=== PATIENT | female | born 1930 | race Caucasian/White ===

== ENCOUNTER 2017-09-06 18:43 | Inpatient (IN) | payer OTHER ==
[2017-09-06 19:35] LABS: BASO % 0.1 % (0-2.0); EOS % 0.2 % (0-4.5); HEMATOCRIT 39.4 % (32.4-45.2); HEMOGLOBIN 13.7 GM/dL (10.7-15.3); LYMPH % 4.5 % (8-40); MCH 30.4 pg (25.7-33.7); MCHC 34.8 g/dl (32.0-36.0); MEAN CELL VOLUME 87.3 fl (80-96); MEAN PLT VOLUME 7.7 fl (7.5-11.1); MONO % 5.9 % (3.8-10.2); NEUT % 89.3 % (42.8-82.8); PLATELET COUNT 331 K/MM3 (134-434); RBC 4.51 M/mm3 (3.60-5.2); RDW 17.6 % (11.6-15.6)
[2017-09-06 20:19] LABS: ALBUMIN 2.8 g/dl (3.4-5.0); ANION GAP 8 (8-16); BILIRUBIN,TOTAL 1.1 mg/dL (0.2-1.0); BLOOD UREA NITROGEN 69 mg/dL (7-18); CHLORIDE 104 mmol/L (98-107); CO2 22 mmol/L (21-32); CREATININE 1.6 mg/dL (0.55-1.02); GLUCOSE,RANDOM 154 mg/dL (74-106); POTASSIUM 3.5 mmol/L (3.5-5.1); SGOT/AST 16 U/L (15-37); SGPT/ALT 18 U/L (12-78); SODIUM 134 mmol/L (136-145); TOT PROT 7.1 g/dl (6.4-8.2)
[2017-09-06 20:20] LABS: ALK PHOS 122 U/L (45-117)
[2017-09-06 20:21] LABS: LIPASE 87 U/L (73-393)
--- NOTE | 2017-09-06 21:23 | PDOC ---
History of Present Illness - General Chief Complaint: Seizure Stated Complaint: SEIZURE - History of Present Illness Initial Comments: 09/06/17 21:16 "The patient is an 86 year old female, with a significant past medical history of atrial fibrillation and epilepsy (not currently on medication), who presents to the emergency department with coughing/vomiting and diarrhea for the past 4 days. Family states that she has been dry heaving every time she tries to eat as well as between meals. They describe greenish sputum coming up when she dry heaves. Pt denies abdominal pain. She endorses mild abdominal distention, though the family states her abdomen looks similar to usual. The patient denies any fever, chills, shortness of breath, chest pain. Allergies: None reported. Past Surgical History: Partial bowel resection (2001). Social History: Non-smoker. Denies alcohol or drug use. PCP: Dr. Groves " Past History - Past Medical History Allergies/Adverse Reactions: Allergies Allergy/AdvReac Type Severity Reaction Status Date / Time No Known Allergies Allergy Verified 09/06/17 19:09 Home Medications: Ambulatory Orders Aspirin 81 mg PO DAILY 09/06/17 Diltiazem Cd [Cardizem Cd -] 180 mg PO DAILY 09/06/17 Furosemide [Lasix -] 40 mg PO HS 09/06/17 Furosemide [Lasix -] 80 mg PO AM 09/06/17 Lisinopril [Zestril] 40 mg PO DAILY 09/06/17 Metoprolol Succinate [Toprol Xl -] 100 mg PO BID 09/06/17 Potassium Chloride [K-Dur -] 20 meq PO DAILY 09/06/17 Pravastatin Sodium [Pravachol] 40 mg PO DAILY 09/06/17 Spironolactone [Aldactone] 25 mg PO DAILY 09/06/17 Apixaban [Eliquis] 5 mg PO BID 09/07/17 Cardiac Disorders: Yes (a fib) COPD: No HTN: Yes Other medical history: epilepsy (no clonic/tonic seizure since @ 2006) - Suicide/Smoking/Psychosocial Hx Smoking History: Unknown if ever smoked Review of Systems - Review of Systems Comments:: 09/06/17 21:24 "GENERAL/CONSTITUTIONAL: +Weakness. No fever or chills. HEAD, EYES, EARS, NOSE AND THROAT: No change in vision. No ear pain or discharge. No sore throat. CARDIOVASCULAR: No chest pain or shortness of breath. RESPIRATORY: +Cough. No wheezing or hemoptysis. GASTROINTESTINAL: +Vomiting, diarrhea. No nausea or constipation. GENITOURINARY: No dysuria, frequency, or change in urination. MUSCULOSKELETAL: No joint or muscle swelling or pain. No neck or back pain. SKIN: No rash. NEUROLOGIC: No headache, vertigo, loss of consciousness, or change in strength/ sensation. ENDOCRINE: No increased thirst. No abnormal weight change. HEMATOLOGIC/LYMPHATIC: No anemia, easy bleeding, or history of blood clots. ALLERGIC/IMMUNOLOGIC: No hives or skin allergy. " *Physical Exam - Vital Signs Last Vital Signs Temp Pulse Resp BP Pulse Ox 98.6 F 88 18 110/72 97 09/06/17 19:04 09/06/17 19:04 09/06/17 19:04 09/06/17 19:04 09/06/17 19:04 - Physical Exam Comments: 09/06/17 21:24 "GENERAL: Awake, alert, and fully oriented, in no acute distress. HEAD: No signs of trauma. EYES: PERRLA, EOMI, sclera anicteric, conjunctiva clear. ENT: Auricles normal inspection, hearing grossly normal, nares patent, oropharynx clear without exudates. Moist mucosa. NECK: Nontender, no stepoffs. Normal ROM, supple, no lymphadenopathy, JVD, or masses. LUNGS: Breath sounds equal, clear to auscultation bilaterally. No wheezes, and no crackles. HEART: Regular rate and rhythm, normal S1 and S2, no murmurs, rubs or gallops. ABDOMEN: + Distended, tympanitic. Soft, nontender, normoactive bowel sounds. No guarding, no rebound. No masses. EXTREMITIES: Normal range of motion, no edema. No clubbing or cyanosis. No cords , erythema, or tenderness. NEUROLOGICAL: Cranial nerves II through XII intact. 5/5 strength and sensation in all extremities. Normal speech, normal gait, normal cerebellar function. SKIN: Warm, dry, normal turgor, no rashes or lesions noted. " ED Treatment Course - LABORATORY CBC & Chemistry Diagram: 09/07/17 07:05 09/07/17 15:20 - ADDITIONAL ORDERS Additional order review: Laboratory Results 09/06/17 09/06/17 19:41 19:20 Sodium 134 L Potassium 3.5 Chloride 104 Carbon Dioxide 22 Anion Gap 8 BUN 69 H Creatinine 1.6 H Creat Clearance w eGFR 30.63 Random Glucose 154 H Calcium 9.0 Magnesium 2.0 Total Bilirubin 1.1 H AST 16 ALT 18 Alkaline Phosphatase 122 H Creatine Kinase 23 L Troponin I < 0.02 Total Protein 7.1 Albumin 2.8 L Lipase 87 09/06/17 19:20 RBC 4.51 MCV 87.3 MCHC 34.8 RDW 17.6 H MPV 7.7 Neutrophils % 89.3 H Lymphocytes % 4.5 L Monocytes % 5.9 Eosinophils % 0.2 Basophils % 0.1 - RADIOLOGY Radiology Studies Ordered: Category Date Time Status ABDOMEN [id number] [RAD] Stat Radiology 09/06/17 20:21 Taken CHEST X-RAY PORTABLE* [RAD] Stat Radiology 09/06/17 20:21 Taken Medical Decision Making - Medical Decision Making 09/06/17 21:24 86 F with N+V+D, found to have abdominal distention and tympany on exam. Concerning for SBO given prior h/o partial bowel resection. - Labs - CXR, Abd XR - CTAP if indicated 09/07/17 01:47 CT with SBO + diverticulitis. Will tx diverticulitis with levaquin + flagyl. Pt made NPO. NG tube deferred for now as pt not vomiting in ED. Call placed to Dr. Pérez for surgical consult. Pt to be admitted to hospitalist. *DC/Admit/Observation/Transfer Diagnosis at time of Disposition: SBO (small bowel obstruction), Diverticulitis - Discharge Dispostion Admit: Yes - Referrals - Patient Instructions - Post Discharge Activity - Attestations Physician Attestion: 09/07/17 01:54 I, Dr. Bahman Simms MD, attest that this document has been prepared under my direction and personally reviewed by me in its entirety. I further attest, that it accurately reflects all work, treatment, procedures and medical decision -making performed by me.
[2017-09-06] MEDS ORDERED: ONDANSETRON 4 MG/2 ML VIAL IVPUSH ONE (21:40)
[2017-09-06] MEDS ORDERED: ONDANSETRON 4 MG/2 ML VIAL ONE (21:40)
[2017-09-07] MEDS ORDERED: FAMOTIDINE 20 MG/50 ML IVPB 20 MG/50 ML MG IVPB ONE (00:20)
[2017-09-07] MEDS ORDERED: FAMOTIDINE IV 20 MG/12 ML VIAL IVPUSH ONE (00:24)
[2017-09-07] MEDS ORDERED: SODIUM CHLORIDE 1,000 ML IV STA (00:47)
--- NOTE | 2017-09-07 01:59 | PN ---
Teaching Attending Note Name of Resident: Mari Baker ATTENDING PHYSICIAN STATEMENT I saw and evaluated the patient. I reviewed the resident's note and discussed the case with the resident. I agree with the resident's findings and plan as documented. SUBJECTIVE: 86 yo f with pmhx of a-fib and epilepsy who pw. abdominal pain, coughing, vomiting and diarrhea. States she is nausous. Notes she dry heaves and brings up green sputum. No chest pain, or pressure. No fevers or chills. No current nausea, vomiting, or diarrhea. Deferred NGT at this time, due to pt. stating she feels better and does not want it placed at this time. OBJECTIVE: Physical: VS: Vital Signs Period Temp Pulse Resp BP Sys/Kendall Pulse Ox Last 24 Hr 98.6 F 88 18 110/72 97 GEN:NAD, Resting in bed, AA0X3 HEENT:NCAT, PERRL, Throat without erythema or exudates CARD: RRR S1, s2 RESP: CTAB ABD: BSx4, NTD, non-distended EXT: - C/C/E CBCD WBC 10.0 K/mm3 (4.0-10.0) 09/06/17 19:20 RBC 4.51 M/mm3 (3.60-5.2) 09/06/17 19:20 Hgb 13.7 GM/dL (10.7-15.3) 09/06/17 19:20 Hct 39.4 % (32.4-45.2) 09/06/17 19:20 MCV 87.3 fl (80-96) 09/06/17 19:20 MCHC 34.8 g/dl (32.0-36.0) 09/06/17 19:20 RDW 17.6 % (11.6-15.6) H 09/06/17 19:20 Plt Count 331 K/MM3 (134-434) 09/06/17 19:20 MPV 7.7 fl (7.5-11.1) 09/06/17 19:20 CMP Sodium 134 mmol/L (136-145) L 09/06/17 19:20 Potassium 3.5 mmol/L (3.5-5.1) 09/06/17 19:20 Chloride 104 mmol/L (98-107) 09/06/17 19:20 Carbon Dioxide 22 mmol/L (21-32) 09/06/17 19:20 Anion Gap 8 (8-16) 09/06/17 19:20 BUN 69 mg/dL (7-18) H 09/06/17 19:20 Creatinine 1.6 mg/dL (0.55-1.02) H 09/06/17 19:20 Creat Clearance w eGFR 30.63 (>60) 09/06/17 19:20 Random Glucose 154 mg/dL (74-106) H 09/06/17 19:20 Calcium 9.0 mg/dL (8.5-10.1) 09/06/17 19:20 Total Bilirubin 1.1 mg/dL (0.2-1.0) H 09/06/17 19:20 AST 16 U/L (15-37) 09/06/17 19:20 ALT 18 U/L (12-78) 09/06/17 19:20 Alkaline Phosphatase 122 U/L (45-117) H 09/06/17 19:20 Total Protein 7.1 g/dl (6.4-8.2) 09/06/17 19:20 Albumin 2.8 g/dl (3.4-5.0) L 09/06/17 19:20 CARDIAC ENZYMES Creatine Kinase 23 IU/L (26-192) L 09/06/17 19:41 Troponin I < 0.02 ng/ml (0.00-0.05) 09/06/17 19:41 Home Medications Medication Instructions Recorded Aspirin 81 mg PO DAILY 09/06/17 Diltiazem Cd [Cardizem Cd -] 180 mg PO DAILY 09/06/17 Furosemide [Lasix -] 40 mg PO HS 09/06/17 Furosemide [Lasix -] 80 mg PO AM 09/06/17 Lisinopril [Zestril] 40 mg PO DAILY 09/06/17 Metoprolol Succinate [Toprol Xl -] 100 mg PO BID 09/06/17 Potassium Chloride [K-Dur -] 20 meq PO DAILY 09/06/17 Pravastatin Sodium [Pravachol] 40 mg PO DAILY 09/06/17 Spironolactone [Aldactone] 25 mg PO DAILY 09/06/17 CT A/P: SBO and Diverticulitis CXR- Cardiomegaly ASSESSMENT AND PLAN: 86 yo F with hx. of afib, Epilepsy, who presents with abdominal pain and vomiyiying 1.) SBO/Diverticultis - Levaquin/Flagyl - NGT if pt. accepts - Type & Screen - Coags - SX. Consult - IVF GENTLE 2.) Hx. of Afib - Hold Eliquis - Hep gtt. - [id number] - C/W Cardizem 3.) JAROD - Hold Aldactone - U.Lytes - Renally dose all meds 5.) Dvt Ppx - Hep. gtt Place in Med-Tele
[2017-09-07] MEDS ORDERED: HEPARIN NA (PORCINE) 5,000 UNITS/ML 1ML VIAL IVPUSH PRN (03:12)
[2017-09-07] MEDS ORDERED: METOPROLOL TARTRATE 5 MG/5 ML VIAL IVPUSH PRN ×2 (03:12→04:15)
[2017-09-07] MEDS ORDERED: dilTIAZem HCL 50 MG/10 ML - 10 ML VIAL IVPUSH PRN ×2 (03:13→04:15)
[2017-09-07] MEDS ORDERED: SODIUM CHLORIDE 1,000 ML IV SCH (03:15)
[2017-09-07] MEDS: HEPARIN INFUSION - 25,000 UNITS/500 ML INFUS.BAG IVPB SCH ×3 (04:16→18:17)
--- NOTE | 2017-09-07 04:31 | HP ---
CHIEF COMPLAINT: diarrhea, abdominal distention PCP: Dr. Groves HISTORY OF PRESENT ILLNESS: Patient is a 86 yo F with a PMHx of A-fib (eliquis) , Epilepsy (not on meds anymore), HTN, and diverticulosis, presented with nausea , abdominal distention, and diarrhea over the last 3 days. She said it started with loss of appetite on Wednesday then progressed to having dry heaves with green sputum coming out. She denies vomiting. She currently does not have abdominal pain but states she had LLQ pain on Wednesday which resolved. She noticed an increased in the size of her abdomen. Since Wednesday she has had at least 2 non- bloody BM a day which she says are loose. She says she's had very poor oral intake in the last 3 days. The family called 911 when they noticed the patient having near syncopal episode which patient says was due to weakness. Family states she fell for a few seconds but don't think she lost consciousness. She had epilepsy in the past and she says the symptoms felt different. She did not lose bladder control or bite her tongue. Patient currently denies abdominal pain , nausea, vomiting, chest pain, sob, lightheadedness, dysuria. ER course was notable for: (1) CT A/P: SBO and Diverticulitis (2) Sx Notified Recent Travel: n/a PAST MEDICAL HISTORY: per hpi PAST SURGICAL HISTORY: n/a Social History: Smoking: denies Alcohol:denies Drugs: denies Family History: Allergies No Known Allergies Allergy (Verified 09/06/17 19:09) HOME MEDICATIONS: Home Medications Medication Instructions Recorded Aspirin 81 mg PO DAILY 09/06/17 Diltiazem Cd [Cardizem Cd -] 180 mg PO DAILY 09/06/17 Furosemide [Lasix -] 40 mg PO HS 09/06/17 Furosemide [Lasix -] 80 mg PO AM 09/06/17 Lisinopril [Zestril] 40 mg PO DAILY 09/06/17 Metoprolol Succinate [Toprol Xl -] 100 mg PO BID 09/06/17 Potassium Chloride [K-Dur -] 20 meq PO DAILY 09/06/17 Pravastatin Sodium [Pravachol] 40 mg PO DAILY 09/06/17 Spironolactone [Aldactone] 25 mg PO DAILY 09/06/17 Apixaban [Eliquis] 5 mg PO BID 09/07/17 REVIEW OF SYSTEMS CONSTITUTIONAL: generalized weakness, loss of appetiete Absent: fever, chills, diaphoresis, malaise, weight change HEENT: Absent: rhinorrhea, nasal congestion, throat pain, throat swelling, difficulty swallowing, mouth swelling, ear pain, eye pain, visual changes CARDIOVASCULAR: Absent: chest pain, syncope, palpitations, irregular heart rate, lightheadedness , peripheral edema RESPIRATORY: cough Absent: shortness of breath, dyspnea with exertion, orthopnea, wheezing, stridor , hemoptysis GASTROINTESTINAL: abdominal pain, nausea, abdominal distention, diarrhea Absent: vomiting, constipation, melena, hematochezia GENITOURINARY: Absent: dysuria, frequency, urgency, hesitancy, hematuria, flank pain, genital pain NEUROLOGIC: Absent: headache, focal weakness or paresthesias, dizziness, unsteady gait, seizure, mental status changes, bladder or bowel incontinence PSYCHIATRIC: Absent: anxiety, depression, suicidal or homicidal ideation, hallucinations. PHYSICAL EXAMINATION Vital Signs - 24 hr 09/06/17 09/07/17 19:04 02:13 Temperature 98.6 F Pulse Rate 88 Pulse Rate [ 89 Apical] Respiratory 18 23 Rate Blood Pressure 110/72 Blood Pressure 115/64 [Right Arm] O2 Sat by Pulse 97 Oximetry (%) GENERAL: Awake, alert, and fully oriented, in no acute distress. EYES: extraocular movements intact, sclera anicteric, conjunctiva clear. EARS, NOSE, THROAT: oropharynx clear without exudates. Moist mucous membranes. NECK: supple without lymphadenopathy, JVD, or masses. LUNGS: Breath sounds equal, clear to auscultation bilaterally. No wheezes, and no crackles. HEART: irregularly irregular ABDOMEN: +BS, hypoactive, Distended, No tenderness to palpation UPPER EXTREMITIES: 2+ pulses, warm, well-perfused. No cyanosis. No clubbing. No peripheral edema. LOWER EXTREMITIES: 2+ pulses, warm, well-perfused. No calf tenderness. No peripheral edema. NEUROLOGICAL: Cranial nerves II-XII intact. Normal speech. Normal gait. Laboratory Results - last 24 hr 09/06/17 09/06/17 09/06/17 19:20 19:20 19:41 WBC 10.0 RBC 4.51 Hgb 13.7 Hct 39.4 MCV 87.3 MCH 30.4 MCHC 34.8 RDW 17.6 H Plt Count 331 MPV 7.7 Neutrophils % 89.3 H Lymphocytes % 4.5 L Monocytes % 5.9 Eosinophils % 0.2 Basophils % 0.1 Sodium 134 L Potassium 3.5 Chloride 104 Carbon Dioxide 22 Anion Gap 8 BUN 69 H Creatinine 1.6 H Creat Clearance w eGFR 30.63 Random Glucose 154 H Calcium 9.0 Magnesium 2.0 Total Bilirubin 1.1 H AST 16 ALT 18 Alkaline Phosphatase 122 H Creatine Kinase 23 L Troponin I < 0.02 Total Protein 7.1 Albumin 2.8 L Lipase 87 ASSESSMENT/PLAN: 86 yo F with a PMHx of A-fib, Epilepsy, HTN, diverticulitis, presented to the ED wit vomiting and diarrhea and was found to have SBO & diverticulitis. #SBO -Surgery consulted -Gentle hydration due to unknown cardiac history -CT A/P: SBO and Diverticulitis -GI consulted -Consider NG tube. -Coags/Type & screen -NPO #Diverticulitis -Start IV antibiotics: Levaquin/Flagyl -IV fluids NS @42ml/hour -NPO -GI consulted #A-fib -Hold Home eliquis 5mg BID -Heparin ggt started -Start lopressor IVPB prn as discussed with Attending for rate control -Will hold Cardizem. Restart tomorrow if off NPO #JAROD -unknown baseline -avoid nephrotoxins -held aldactone, lasix, lisinopril -gentle hydration -urine lytes, urea -renally dose all meds #HLD -Pravastatin 40 #PPx -Heparin gtt Visit type - Emergency Visit Emergency Visit: Yes ED Registration Date: 09/07/17 Care time: The patient presented to the Emergency Department on the above date and was hospitalized for further evaluation of their emergent condition. - New Patient This patient is new to me today: Yes Date on this admission: 09/07/17 - Critical Care Critical Care patient: No Hospitalist Screening - Colonoscopy Questionnaire Colonoscopy Questionnaire: Colonoscopy Questionnaire - Patient: 50 - 75 years old and never had a screening colonoscopy: Unknown History of colon or rectal polyps, or CA: Unknown History of IBD, Crohn's disease or UC: Unknown History of abdominal radiation therapy as a child: Unknown - Relative: 1 with colon or rectal CA, or polyps at age 60 or younger: Unknown Colon or rectal CA diagnosed at age 45 or younger: Unknown Multiple relatives with colon or rectal CA: Unknown - Outcome: Screening Result: Negative Screen
[2017-09-07 04:47] VITALS: BMI 36.1
[2017-09-07] MEDS ORDERED: METOPROLOL TARTRATE 5 MG/5 ML VIAL IVPB PRN (04:52)
[2017-09-07 08:11] LABS: MCH 29.8 pg (25.7-33.7); MCHC 34.2 g/dl (32.0-36.0); MEAN CELL VOLUME 87.1 fl (80-96); MEAN PLT VOLUME 7.9 fl (7.5-11.1); PLATELET COUNT 280 K/MM3 (134-434); RBC 4.02 M/mm3 (3.60-5.2); WHITE BLOOD COUNT 9.5 K/mm3 (4.0-10.0)
[2017-09-07 08:53] LABS: INR 2.62 (0.82-1.09); PROTHROMBIN TIME (PATIENT) 29.6 SEC (9.7-13.0)
[2017-09-07] MEDS: ASPIRIN 81 MG CHEWABLE TABLETS PO SCH (09:07)
[2017-09-07] MEDS: POTASSIUM CHLORIDE TABS 20 MEQ TABLET.ER (FP) PO SCH (09:08)
[2017-09-07 09:17] LABS: ALBUMIN 2.3 g/dl (3.4-5.0); ANION GAP 10 (8-16); BLOOD UREA NITROGEN 62 mg/dL (7-18); CALCIUM 8.4 mg/dL (8.5-10.1); CHLORIDE 107 mmol/L (98-107); CO2 22 mmol/L (21-32); CREATININE 1.4 mg/dL (0.55-1.02); GLUCOSE,RANDOM 97 mg/dL (74-106); SGOT/AST 16 U/L (15-37); SGPT/ALT 17 U/L (12-78); SODIUM 139 mmol/L (136-145)
[2017-09-07 09:18] LABS: ALK PHOS 100 U/L (45-117); BILIRUBIN,TOTAL 0.8 mg/dL (0.2-1.0); PHOSPHOROUS 2.8 mg/dL (2.5-4.9); TOT PROT 6.3 g/dl (6.4-8.2)
[2017-09-07] MEDS: PANTOPRAZOLE SODIUM 40 MG VIAL IVPUSH SCH (09:20)
--- NOTE | 2017-09-07 09:27 | PN ---
Physical Exam: SUBJECTIVE: Patient seen and examined - Intermittent diarrhea/constipation for past few days; persistent spitting up bilious/clear phlegm; No f/c/n/v, ANDRES, CP, cough, SOB, ab pain, back pain; Pt with LE edema at baseline; poor po intake; pt follows with pcb design engineer at [facility] in addition to Dr. Boyd OBJECTIVE: Vital Signs Intake & Output 09/04/17 09/05/17 09/06/17 09/07/17 23:59 23:59 23:59 23:59 Intake Total 224 Balance 224 Weight 88.451 kg 86.591 kg Period Temp Pulse Resp BP Sys/Kendall Pulse Ox Last 24 Hr 98.6 F-99.1 F 88-96 18-23 110-141/64-74 96-97 GENERAL: Elderly woman, NAD HEAD: NCAT EYES: PERRL, extraocular movements intact, sclera anicteric, conjunctiva clear. No ptosis. ENT: Ears normal, nares patent, oropharynx clear without exudates, moist mucous membranes. NECK: Trachea midline, full range of motion, supple. LUNGS: Trace crackles at bases. Otherwise, Breath sounds equal, clear to auscultation bilaterally, no wheezes, , no accessory muscle use. HEART: IRR IRR,, S1, S2 without murmur, rub or gallop. ABDOMEN: Distended. Soft, nontender, normoactive bowel sounds, no guarding, no rebound, no hepatosplenomegaly, no masses. EXTREMITIES: 2+ pulses, warm, well-perfused. 2+ BL pitting edema to knees. NEUROLOGICAL: Cranial nerves II through XII grossly intact. Normal speech, gait not observed. PSYCH: Normal mood, normal affect. plesant, interactive Laboratory Results - last 24 hr CBC, BMP 09/07/17 07:05 09/07/17 07:05 09/06/17 09/06/17 09/06/17 19:20 19:20 19:41 WBC 10.0 RBC 4.51 Hgb 13.7 Hct 39.4 MCV 87.3 MCH 30.4 MCHC 34.8 RDW 17.6 H Plt Count 331 MPV 7.7 Neutrophils % 89.3 H Lymphocytes % 4.5 L Monocytes % 5.9 Eosinophils % 0.2 Basophils % 0.1 PT with INR INR Sodium 134 L Potassium 3.5 Chloride 104 Carbon Dioxide 22 Anion Gap 8 BUN 69 H Creatinine 1.6 H Creat Clearance w eGFR 30.63 Random Glucose 154 H Calcium 9.0 Phosphorus Magnesium 2.0 Total Bilirubin 1.1 H AST 16 ALT 18 Alkaline Phosphatase 122 H Creatine Kinase 23 L Troponin I < 0.02 Total Protein 7.1 Albumin 2.8 L Lipase 87 09/07/17 09/07/17 09/07/17 07:05 07:05 08:00 WBC 9.5 RBC 4.02 Hgb 12.0 D Hct 35.0 MCV 87.1 MCH 29.8 MCHC 34.2 RDW 17.0 H Plt Count 280 MPV 7.9 Neutrophils % Lymphocytes % Monocytes % Eosinophils % Basophils % PT with INR 29.60 H INR 2.62 H Sodium Potassium Chloride Carbon Dioxide Anion Gap BUN Creatinine Creat Clearance w eGFR Random Glucose Calcium Phosphorus 2.8 Magnesium 2.0 Total Bilirubin AST ALT Alkaline Phosphatase Creatine Kinase Troponin I Total Protein Albumin Lipase Active Medications Generic Name Dose Route Start Last Admin Trade Name Freq PRN Reason Stop Dose Admin Aspirin 81 mg 09/07/17 10:00 09/07/17 09:07 Asa - PO Not Given DAILY ANNA Atorvastatin Calcium 10 mg 09/07/17 22:00 Lipitor - PO HS ANNA Heparin Sodium (Porcine) 1,000 unit 09/07/17 03:12 Heparin - IVPUSH PRN PRN Heparin Heparin Sodium (Porcine) 5,000 unit 09/07/17 03:12 Heparin - IVPUSH PRN PRN Heparin Sodium Chloride 1,000 mls @ 42 mls/hr 09/07/17 03:15 09/07/17 03:53 Normal Saline - IV 42 mls/hr ASDIR ANNA Administration Heparin Sodium/Dextrose 25,000 units in 500 mls @ 20 mls/hr 09/07/17 03:15 04:16 Heparin Infusion - IVPB 1,000 units/hr TITR ANNA 20 mls/hr Protocol Administration 1,000 UNITS/HR Levofloxacin 250 mg in 50 mls @ 50 mls/hr 09/07/17 22:00 Levaquin 250 Mg Premixed Ivpb - IVPB HS ANNA Protocol Metronidazole 500 mg in 100 mls @ 100 mls/hr 09/07/17 10:00 09/07/17 09:20 Flagyl 500mg Premixed Ivpb - IVPB 100 mls/hr Q8H-IV ANNA Administration Metoprolol Tartrate 5 mg 09/07/17 04:52 Lopressor Injection - IVPB Q4H PRN HYPERTENSION Pantoprazole Sodium 40 mg 09/07/17 10:00 09/07/17 09:20 Protonix Iv IVPUSH 40 mg DAILY ANNA Administration Potassium Chloride 20 meq 09/07/17 10:00 09/07/17 09:08 K-Dur - PO Not Given DAILY ANNA No micro CXR 09/06 -Since 08/01/2009, there is a slightly elevated left hemidiaphragm with large heart, sclerotic knob but no sign of an acute chest process. There is no sign of a pneumoperitoneum or gross abdominal distention. Correlation recommended. Ab XR 09/06 - Impression: Small bowel obstruction. Get CT. Ab CT/Pelvis 09/06 - IMPRESSION: 1. 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 2. Cholelithiasis. 3. 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 4. Proximal small bowel distention consistent with a partial SBO. 5. Inflammatory changes about the proximal sigmoid colon consistent with mild acute diverticulitis. 6. Fibroid uterus. Please see above discussion. ASSESSMENT/PLAN: 86 yo F with a PMHx of A-fib, Epilepsy, HTN, diverticulitis, presented to the ED wit vomiting and diarrhea and was found to have SBO & diverticulitis. Plan for medical management for now, NG tube placed with continuation of abx for imaging confirmed diverticulitis. GI and Surgery following. #Partial SBO - Imaging confirmed, transition point not identified; pt passing flatus -Surgery consulted, plan for conservative management for now -d/c hydration for now -GI consulted; agree with plan for NGT, IVFs and abx -NGT placed; draining bilious fluid -Coags/Type & screen -NPO for now #Diverticulitis - confirmed on CT ab/pelvis - Levaquin/flagyl day 1 - hold off on hydration as slightly volume overloaded -bowel rest -GI following - f/u c diff studies, stool cultures - f/u FOBT #A-fib - obtain more cardiac hx -Holding hold eliquis 5mg BID; INR 2.62 this AM -c/w Heparin ggt -Start lopressor q6h 5mg IVPB; hold home metoprolol tartrate -holding cardizem for now - cardiology consulted #Hypokalemia - 3.0 this am - KCL riders x3, with f/u bmp - will repeat KCL riders in PM as pt NPO - trend, replete as needed #CHF - secondary likely to afib - strict Is and Os - Lasix 60mg IV daily started; monitor for hypoK and worsening JAROD - repeat ECHO - cardiology consulted #JAROD - 1.6 -> 1.4, improving; baseline 0.8 per PMD; prior hx of AIN -avoid nephrotoxins -hold aldactone; restarted home lasix IV -renally dose all meds - bladder and renal U/S - if JAROD worsens with lasix, consider decreasing/removing #HLD -c/w home statin #PPx -Heparin gtt #FEN No hydration for now as restarting diuretics Daily lytes NPO Plan discussed with Dr. Tico Arenas, PGY1 Visit type - Emergency Visit Emergency Visit: Yes ED Registration Date: 09/07/17 Care time: The patient presented to the Emergency Department on the above date and was hospitalized for further evaluation of their emergent condition. - New Patient This patient is new to me today: Yes Date on this admission: 09/07/17 - Critical Care Critical Care patient: No - Discharge Referral Referred to [facility] No
[2017-09-07] MEDS ORDERED: TETRACAINE/BENZOCAINE/BUTAMBEN 20 GM SPR TP PRN (10:15)
--- NOTE | 2017-09-07 10:20 | PROC ---
Procedure Note Procedure: NG tube placed at bedside with Dr Pérez into left nostril. Patient tolerated procedure well.
--- NOTE | 2017-09-07 10:22 | MSN ---
Progress Note (short form) - Note Progress Note: SUBJECTIVE: Patient seen and examined this morning. Son is at the bedside. Admitted from ED overnight. In ED, vital signs stable. Patient received zofran , pepcid, one dose of levaquin IV 250 mg and one dose of flagyl IV 500 mg. Patient is moderately hard of hearing but pleasant. She feels about the same as yesterday. She continues to have episodes of dry heaving with clear mucousy expectoration but denies any episodes of diarrhea. She notes her abdomen may be minimally distended but denies abdominal pain or cramping. She denies fevers/ chills, SOB, chest pain, or melena/hematochezia. OBJECTIVE: Vital Signs Period Temp Pulse Resp BP Sys/Kendall Pulse Ox Last 24 Hr 98.6 F-99.1 F 88-96 18-23 110-141/64-74 96-97 GENERAL: Tired-appearing elderly woman with slightly labored breathing, awake, alert and orientated HEAD: Normal with no evidence of trauma EYES: Conjuncitiva clear, sclera anicteric MOUTH: Dry mucous membranes, no lesions NECK: No JVD, supple, no lymphadenopathy or thyromegaly, trachea midline CARDIOVASCULAR: Irregular at 90 bpm, +S1/S2, no murmurs, rubs, or gallops LUNGS: Decreased breath sounds at bases b/l, no wheezes or crackles ABDOMEN: Normoactive bowel sounds, tympanic to percussion, soft, non-tender, no masses, no rebound or guarding EXTREMITIES: 2 + PT pulse b/l, 2 + non-pitting edema b/l; healed scar on right knee NEURO: CN II-XII grossly intact, decreased hearing b/l, normal speech, gait not observed PSYCH: Pleasant, normal mood and affect, cooperative CBC, BMP 09/07/17 07:05 09/07/17 07:05 Troponin, BNP 09/06/17 19:41 Troponin I < 0.02 INR, PTT INR 2.62 (0.82-1.09) H 09/07/17 08:00 Current Medications Generic Name Dose Route Start Last Admin Trade Name Freq PRN Reason Stop Dose Admin Aspirin 81 mg 09/07/17 10:00 09/07/17 09:07 Asa - PO Not Given DAILY ANNA Atorvastatin Calcium 10 mg 09/07/17 22:00 Lipitor - PO HS ANNA Heparin Sodium (Porcine) 1,000 unit 09/07/17 03:12 Heparin - IVPUSH PRN PRN Heparin Heparin Sodium (Porcine) 5,000 unit 09/07/17 03:12 Heparin - IVPUSH PRN PRN Heparin Sodium Chloride 1,000 mls @ 42 mls/hr 09/07/17 03:15 09/07/17 03:53 Normal Saline - IV 42 mls/hr ASDIR ANNA Administration Heparin Sodium/Dextrose 25,000 units in 500 mls @ 20 mls/hr 09/07/17 03:15 04:16 Heparin Infusion - IVPB 1,000 units/hr TITR ANNA 20 mls/hr Protocol Administration 1,000 UNITS/HR Levofloxacin 250 mg in 50 mls @ 50 mls/hr 09/07/17 22:00 Levaquin 250 Mg Premixed Ivpb - IVPB HS ANNA Protocol Metronidazole 500 mg in 100 mls @ 100 mls/hr 09/07/17 10:00 09/07/17 09:20 Flagyl 500mg Premixed Ivpb - IVPB 100 mls/hr Q8H-IV ANNA Administration Potassium Chloride 10 meq in 100 mls @ 100 mls/hr 09/07/17 09:45 Potassium Chloride 10 Meq Premix Ivpb - IVPB 09/07/17 12:44 Q60M ANNA Metoprolol Tartrate 5 mg 09/07/17 04:52 Lopressor Injection - IVPB Q4H PRN HYPERTENSION Nystatin 1 applic 09/07/17 10:00 Nystop Powder - TP DAILY ANNA Pantoprazole Sodium 40 mg 09/07/17 10:00 09/07/17 09:20 Protonix Iv IVPUSH 40 mg DAILY ANNA Administration Potassium Chloride 20 meq 09/07/17 10:00 09/07/17 09:08 K-Dur - PO Not Given DAILY ANNA IMAGING: EKG (09-06-17): Atrial fibrillation at 86 bpm; Right bundle branch block; T- wave inversions in anteriolateral leads CXR (09-06-17): Elevated left hemidiaphragm; cardiomegaly CT abdomen/pelvis (09-06-17): 1. Small bowel distension suggestive of partial SBO 2. Mild diverticulitis of sigmoid colon 3. Left adrenal myelolipoma 4. cholelithiasis 5. Right UPJ obstruction 6. Fibroid uterus ASSESSMENT/PLAN: 86 yr old woman with history of afib (s/p SC with stent placement), seizures (d/ c medication 2013), HTN, and right colon bowel resection (2001 due to recurrent polyp) presented to the ED with 4 days of bilious vomiting and diarrhea and was found to have a partial SBO and mild diverticulitis. #Partial SBO demonstrated on CT abd/pelvis -Surgery consulted; recommend conservative management for now -NPO; IV NS at 42 mls/hr; replace potassium as needed -Consider NG- patient is currently comfortable without decompression -Coags/ type and screen ordered #Mild diverticulitis demonstrated on CT abd/pelvis- Not associated with leukocytosis or fever -Dr. Sarmiento consulted-agree with conservative management -NPO; IV NS at 42 mls/hr -Levaquin 250 mg IV QD (renal dosing) and flagyl 500 mg IV Q8H #Acute Kidney Injury-improving -Maybe pre-renal as patient has had poor po intake for past 4 days -Baseline creatinine is 0.8 per PCP office- however patient has history of acute interstitial nephritis (2009-drug rxn to acyclovir) -Creatinine trending down 1.6<1.4 -Hold home meds; aldactone and lasix -Renally dose medications -Order urine electrolytes; bladder/kidney u/s #Atrial fibrillation-Rate controlled -Complete cardiac history unknown-s/p SC with stent placement in 2006 (?) -Stop home Eliquis and start heparin ggt -INR 2.62 -Hold home diltiazem 180 mg QD, metoprolol tartate 100mg BID -Start IV lopressor 5 mg Q6H -Consider echo -Cardiology consulted #FEN -IV NS at 42 mls/hr due to cardiac history -Hypokalemia-Replete with potassium chloride 10 mEq IV-monitor CMP for resolution #DVT prophylaxis -Heparin ggt
[2017-09-07] MEDS: POTASSIUM CHLORIDE 10 MEQ in SODIUM CHLORIDE 100 ML IVPB SCH ×3 (11:08→13:48)
[2017-09-07] MEDS: NYSTATIN POWDER 100,000 UNITS/GM - 15 GM TOPICAL POWDER TP SCH (11:08)
--- NOTE | 2017-09-07 11:18 | CONSULT ---
- Consultation REQUESTING PROVIDER: Demi CORDON CONSULT REQUEST: We have been asked to surgically evaluate this patient for abdominal pain and nausea and vomiting PCP:Jensen Doshi MD HISTORY OF PRESENT ILLNESS: CTSP for nausea and vomiting of # days duration; she came to the ER for evaluation; pain crampy; she is ? passing flatus and have loose BM's. PMHx: htn;af;CHF;hld PSHx: right colon resection Home Medications Medication Instructions Recorded Aspirin 81 mg PO DAILY 09/06/17 Diltiazem Cd [Cardizem Cd -] 180 mg PO DAILY 09/06/17 Furosemide [Lasix -] 40 mg PO HS 09/06/17 Furosemide [Lasix -] 80 mg PO AM 09/06/17 Lisinopril [Zestril] 40 mg PO DAILY 09/06/17 Metoprolol Succinate [Toprol Xl -] 100 mg PO BID 09/06/17 Potassium Chloride [K-Dur -] 20 meq PO DAILY 09/06/17 Pravastatin Sodium [Pravachol] 40 mg PO DAILY 09/06/17 Spironolactone [Aldactone] 25 mg PO DAILY 09/06/17 Apixaban [Eliquis] 5 mg PO BID 09/07/17 Allergies Allergy/AdvReac Type Severity Reaction Status Date / Time No Known Allergies Allergy Verified 09/06/17 19:09 PHYSICAL EXAM: GENERAL: Awake, slightly lethargic, and fully oriented, in no acute distress. HEAD: Normal with no signs of trauma. EYES: PERRL, sclera anicteric, conjunctiva clear. NECK: Normal ROM, supple without lymphadenopathy, JVD, or masses. ABDOMEN: Soft, nontender, markedly distended, absent bowel sounds, no guarding, no rebound, no masses. No organomegaly. No hernias; healed surgical scar. MUSCULOSKELETAL: Normal ROM at all joints. No bony deformities or tenderness. No CVA tenderness. UPPER EXTREMITIES: 2+ pulses, warm, well-perfused. No cyanosis. Cap refill <2 seconds. No peripheral edema. LOWER EXTREMITIES: 2+ pulses, warm, well-perfused. No calf tenderness. No peripheral edema. NEUROLOGICAL: Normal speech, gait not observed. PSYCH: Cooperative. Good eye contact. Appropriate mood and affect. SKIN: Warm, dry, normal turgor, no rashes or lesions noted. Vital Signs Temperature 98.6 F 05/01/18 08:30 Pulse Rate 94 H 09/07/17 08:30 Respiratory Rate 18 09/07/17 08:30 Blood Pressure 119/64 09/07/17 08:30 O2 Sat by Pulse Oximetry (%) 95 09/07/17 09:00 Lab Results WBC 9.5 K/mm3 (4.0-10.0) 09/07/17 07:05 RBC 4.02 M/mm3 (3.60-5.2) 09/07/17 07:05 Hgb 12.0 GM/dL (10.7-15.3) D 09/07/17 07:05 Hct 35.0 % (32.4-45.2) 09/07/17 07:05 MCV 87.1 fl (80-96) 09/07/17 07:05 MCHC 34.2 g/dl (32.0-36.0) 09/07/17 07:05 RDW 17.0 % (11.6-15.6) H 09/07/17 07:05 Plt Count 280 K/MM3 (134-434) 09/07/17 07:05 Sodium 139 mmol/L (136-145) 09/07/17 07:05 Potassium 3.0 mmol/L (3.5-5.1) L 09/07/17 07:05 Chloride 107 mmol/L (98-107) 09/07/17 07:05 Carbon Dioxide 22 mmol/L (21-32) 09/07/17 07:05 Anion Gap 10 (8-16) 09/07/17 07:05 BUN 62 mg/dL (7-18) H 09/07/17 07:05 Creatinine 1.4 mg/dL (0.55-1.02) H 09/07/17 07:05 Random Glucose 97 mg/dL (74-106) 09/07/17 07:05 Calcium 8.4 mg/dL (8.5-10.1) L 09/07/17 07:05 Blood Type A POSITIVE 09/07/17 08:45 Antibody Screen Negative 09/07/17 07:48 INR 2.62 (0.82-1.09) H 09/07/17 08:00 CT a/p; axr's reviewed IMP: sbo and ? diverticulitis PLAN: NPO/IVF/IVAB'/NGT inserted and connected to LCWS; will f/u; operative intervetion as a possibility d/w the patient and her family. Bahman Pérez MD FACS Visit type - Case Type Case Type: ED Admission - Emergency Emergency Visit: Yes ED Registration Date: 09/07/17 Care time: The patient presented to the Emergency Department on the above date and was hospitalized for further evaluation of their emergent condition. - New patient This patient is new to me today: Yes Date on this admission: 09/07/17 - Critical Care Critical Care patient: No
[2017-09-07] MEDS: HEPARIN NA (PORCINE) 5,000 UNITS/ML 1ML VIAL IVPUSH PRN ×2 (11:21→18:17)
--- NOTE | 2017-09-07 13:32 | CON.GI ---
Consult Consult Specialty:: GI Reason for Consultation:: abdominal distention - History of Present Illness History of Present Illness: chart reviewed. Events noted. As per initial intake: Patient is a 86 yo F with a PMHx of A-fib (eliquis), Epilepsy (not on meds anymore), HTN, and diverticulosis, presented with nausea, abdominal distention, and diarrhea over the last 3 days. She said it started with loss of appetite on Wednesday then progressed to having dry heaves with green sputum coming out. She denies vomiting. She currently does not have abdominal pain but states she had LLQ pain on Wednesday which resolved. She noticed an increased in the size of her abdomen. Since Wednesday she has had at least 2 non-bloody BM a day which she says are loose. She says she's had very poor oral intake in the last 3 days. The family called 911 when they noticed the patient having near syncopal episode which patient says was due to weakness. Family states she fell for a few seconds but don't think she lost consciousness. She had epilepsy in the past and she says the symptoms felt different. She did not lose bladder control or bite her tongue. Patient currently denies abdominal pain, nausea, vomiting, chest pain, sob, lightheadedness, dysuria. At the time of this encounter, the patient appears comfortable, not in distress , patient's daughter and son at the bedside. As per family, patient had partial small bowel resection in 2001 followed by what sounds like bowel obstruction managed with NG tube. No gastrointestinal issues since 2001. Now presents with acute abdominal distention while maintaining bowel movements. admission CT scan showed partial small bowel obstruction and possible diverticulitis. The patient has been managed conservatively thus far with NG tube to intermittent, low suction and antibiotics. the patient reports improvement abdominal distention. Denies abdominal pain, nausea, dyspepsia. Denies history of melena, hematochezia, hematemesis. Denies significant weight loss in the last 12 months. - History Source History Provided By: Patient, Family Member, Medical Record - Alcohol/Substance Use Hx Alcohol Use: No - Smoking History Smoking history: Unknown if ever smoked Home Medications - Allergies Allergies/Adverse Reactions: Allergies Allergy/AdvReac Type Severity Reaction Status Date / Time No Known Allergies Allergy Verified 09/06/17 19:09 - Home Medications Home Medications: Ambulatory Orders Aspirin 81 mg PO DAILY 09/06/17 Diltiazem Cd [Cardizem Cd -] 180 mg PO DAILY 09/06/17 Furosemide [Lasix -] 40 mg PO HS 09/06/17 Furosemide [Lasix -] 80 mg PO AM 09/06/17 Lisinopril [Zestril] 40 mg PO DAILY 09/06/17 Metoprolol Succinate [Toprol Xl -] 100 mg PO BID 09/06/17 Potassium Chloride [K-Dur -] 20 meq PO DAILY 09/06/17 Pravastatin Sodium [Pravachol] 40 mg PO DAILY 09/06/17 Spironolactone [Aldactone] 25 mg PO DAILY 09/06/17 Apixaban [Eliquis] 5 mg PO BID 09/07/17 Family Disease History - Family Disease History Family History: Unremarkable (Noncontributory) Review of Systems Findings/Remarks: as per H&P and HPI Physical Exam-GI Vital Signs: Vital Signs Temperature 98.6 F 09/07/17 08:30 Pulse Rate 94 H 09/07/17 08:30 Respiratory Rate 18 09/07/17 08:30 Blood Pressure 119/64 09/07/17 08:30 O2 Sat by Pulse Oximetry (%) 95 09/07/17 09:00 Constitutional: Yes: No Distress, Calm Eyes: Yes: Conjunctiva Clear HENT: Yes: Atraumatic, Other ( NG tube in place draining small amounts of green colored, clear fluid) Cardiovascular: No: Bradycardia, Tachycardia Respiratory: Yes: Regular Gastrointestinal Inspection: No: Ascites, Distention ...Auscultate: Yes: Hyperactive Bowel Sounds ...Palpate: No: Firm/Rigid, Guarding, Mass, Soft, Tenderness, Tenderness, Rebound Neurological: Yes: Alert Labs: CBC, BMP 09/07/17 07:05 09/07/17 07:05 INR, PTT INR 2.62 (0.82-1.09) H 09/07/17 08:00 Laboratory Last Values WBC 9.5 K/mm3 (4.0-10.0) 09/07/17 07:05 RBC 4.02 M/mm3 (3.60-5.2) 09/07/17 07:05 Hgb 12.0 GM/dL (10.7-15.3) D 09/07/17 07:05 Hct 35.0 % (32.4-45.2) 09/07/17 07:05 MCV 87.1 fl (80-96) 09/07/17 07:05 MCH 29.8 pg (25.7-33.7) 09/07/17 07:05 MCHC 34.2 g/dl (32.0-36.0) 09/07/17 07:05 RDW 17.0 % (11.6-15.6) H 09/07/17 07:05 Plt Count 280 K/MM3 (134-434) 09/07/17 07:05 MPV 7.9 fl (7.5-11.1) 09/07/17 07:05 Neutrophils % 89.3 % (42.8-82.8) H 09/06/17 19:20 Lymphocytes % 4.5 % (8-40) L 09/06/17 19:20 Monocytes % 5.9 % (3.8-10.2) 09/06/17 19:20 Eosinophils % 0.2 % (0-4.5) 09/06/17 19:20 Basophils % 0.1 % (0-2.0) 09/06/17 19:20 PT with INR 29.60 SEC (9.7-13.0) H 09/07/17 08:00 INR 2.62 (0.82-1.09) H 09/07/17 08:00 PTT (Actin FS) 44.9 SECONDS (26.9-34.4) H 09/07/17 09:55 Sodium 139 mmol/L (136-145) 09/07/17 07:05 Potassium 3.0 mmol/L (3.5-5.1) L 09/07/17 07:05 Chloride 107 mmol/L (98-107) 09/07/17 07:05 Carbon Dioxide 22 mmol/L (21-32) 09/07/17 07:05 Anion Gap 10 (8-16) 09/07/17 07:05 BUN 62 mg/dL (7-18) H 09/07/17 07:05 Creatinine 1.4 mg/dL (0.55-1.02) H 09/07/17 07:05 Creat Clearance w eGFR 35.74 (>60) 09/07/17 07:05 Random Glucose 97 mg/dL (74-106) 09/07/17 07:05 Calcium 8.4 mg/dL (8.5-10.1) L 09/07/17 07:05 Phosphorus 2.8 mg/dL (2.5-4.9) 09/07/17 07:05 Magnesium 2.0 mg/dL (1.8-2.4) 09/07/17 07:05 Total Bilirubin 0.8 mg/dL (0.2-1.0) D 09/07/17 07:05 AST 16 U/L (15-37) 09/07/17 07:05 ALT 17 U/L (12-78) 09/07/17 07:05 Alkaline Phosphatase 100 U/L (45-117) 09/07/17 07:05 Creatine Kinase 23 IU/L (26-192) L 09/06/17 19:41 Troponin I < 0.02 ng/ml (0.00-0.05) 09/06/17 19:41 Total Protein 6.3 g/dl (6.4-8.2) L 09/07/17 07:05 Albumin 2.3 g/dl (3.4-5.0) L 09/07/17 07:05 Lipase 87 U/L (73-393) 09/06/17 19:41 Blood Type A POSITIVE 09/07/17 08:45 Antibody Screen Negative 09/07/17 07:48 Imaging - Results Cat Scan: Report Reviewed Problem List - Problems (1) Partial obstruction of small intestine Code(s): K56.600 - PARTIAL INTESTINAL OBSTRUCTION, UNSPECIFIED TO CAUSE (2) Diverticulitis Code(s): K57.92 - DVTRCLI OF INTEST, PART UNSP, W/O PERF OR ABSCESS W/O BLEED (3) Diverticulitis large intestine Code(s): K57.32 - DVTRCLI OF LG INT W/O PERFORATION OR ABSCESS W/O BLEEDING Assessment/Plan At 86-year-old female with remote history of partial small bowel resection who presents with partial small bowel obstruction as well as CT scan findings of sigmoid diverticulitis without perforation, or abscess. Agree with current conservative management (NG tube to low intermittent suction, antibiotics, adequate hydration) and close monitoring for worsening symptoms. Follow stool test results, rule out C. difficile colitis. Discussed with the patient and her children at the bedside. We will follow.
[2017-09-07] MEDS ORDERED: POTASSIUM CHLORIDE 30 MEQ in SODIUM CHLORIDE 300 ML IVPB ONE (16:30)
[2017-09-07] MEDS ORDERED: KCL 10 MEQ IVPB 10 MEQ/100 ML INFUS.BAG IVPB SCH (16:30)
--- NOTE | 2017-09-07 17:07 | PN ---
Teaching Attending Note Name of Resident: Balaji Arenas ATTENDING PHYSICIAN STATEMENT I saw and evaluated the patient. I reviewed the resident's note and discussed the case with the resident. I agree with the resident's findings and plan as documented. SUBJECTIVE: Patient says she feels better. She denies abdominal pain, nausea. No flatus or BM today. OBJECTIVE: Vital Signs Period Temp Pulse Resp BP Sys/Kendall Pulse Ox Last 24 Hr 98.6 F-99.7 F 88-96 18-23 110-141/64-74 95-97 HEART: Irregular LUNGS: Clear ABDOMEN: Obese, soft, non-tender, non-distended, normal BS EXTREMITIES: Trace edema Laboratory Results - last 24 hr 09/06/17 09/06/17 09/06/17 19:20 19:20 19:41 WBC 10.0 RBC 4.51 Hgb 13.7 Hct 39.4 MCV 87.3 MCH 30.4 MCHC 34.8 RDW 17.6 H Plt Count 331 MPV 7.7 Neutrophils % 89.3 H Lymphocytes % 4.5 L Monocytes % 5.9 Eosinophils % 0.2 Basophils % 0.1 PT with INR INR PTT (Actin FS) Sodium 134 L Potassium 3.5 Chloride 104 Carbon Dioxide 22 Anion Gap 8 BUN 69 H Creatinine 1.6 H Creat Clearance w eGFR 30.63 Random Glucose 154 H Calcium 9.0 Phosphorus Magnesium 2.0 Total Bilirubin 1.1 H AST 16 ALT 18 Alkaline Phosphatase 122 H Creatine Kinase 23 L Troponin I < 0.02 Total Protein 7.1 Albumin 2.8 L Lipase 87 Blood Type Antibody Screen 09/07/17 09/07/17 09/07/17 07:05 07:05 07:05 WBC 9.5 RBC 4.02 Hgb 12.0 D Hct 35.0 MCV 87.1 MCH 29.8 MCHC 34.2 RDW 17.0 H Plt Count 280 MPV 7.9 Neutrophils % Lymphocytes % Monocytes % Eosinophils % Basophils % PT with INR INR PTT (Actin FS) Sodium 139 Potassium 3.0 L Chloride 107 Carbon Dioxide 22 Anion Gap 10 BUN 62 H Creatinine 1.4 H Creat Clearance w eGFR 35.74 Random Glucose 97 Calcium 8.4 L Phosphorus 2.8 Magnesium 2.0 Total Bilirubin 0.8 D AST 16 ALT 17 Alkaline Phosphatase 100 Creatine Kinase Troponin I Total Protein 6.3 L Albumin 2.3 L Lipase Blood Type Antibody Screen 09/07/17 09/07/17 09/07/17 07:48 08:00 08:45 WBC RBC Hgb Hct MCV MCH MCHC RDW Plt Count MPV Neutrophils % Lymphocytes % Monocytes % Eosinophils % Basophils % PT with INR 29.60 H INR 2.62 H PTT (Actin FS) Sodium Potassium Chloride Carbon Dioxide Anion Gap BUN Creatinine Creat Clearance w eGFR Random Glucose Calcium Phosphorus Magnesium Total Bilirubin AST ALT Alkaline Phosphatase Creatine Kinase Troponin I Total Protein Albumin Lipase Blood Type A POSITIVE A POSITIVE Antibody Screen Negative 09/07/17 09:55 WBC RBC Hgb Hct MCV MCH MCHC RDW Plt Count MPV Neutrophils % Lymphocytes % Monocytes % Eosinophils % Basophils % PT with INR INR PTT (Actin FS) 44.9 H Sodium Potassium Chloride Carbon Dioxide Anion Gap BUN Creatinine Creat Clearance w eGFR Random Glucose Calcium Phosphorus Magnesium Total Bilirubin AST ALT Alkaline Phosphatase Creatine Kinase Troponin I Total Protein Albumin Lipase Blood Type Antibody Screen Current Medications Generic Name Dose Route Start Last Admin Trade Name Freq PRN Reason Stop Dose Admin Aspirin 81 mg 09/07/17 10:00 09/07/17 09:07 Asa - PO Not Given DAILY [facility] Atorvastatin Calcium 10 mg 09/07/17 22:00 Lipitor - PO HS [facility] Benzocaine/Butamben/Tetracaine HCl 1 spray 09/07/17 10:15 09/07/17 11:08 Cetacaine [place] - TP 1 spray DAILY PRN Administration throat irritation Furosemide 60 mg 09/08/17 10:00 Lasix Injection - IVPUSH DAILY [facility] Heparin Sodium (Porcine) 1,000 unit 09/07/17 03:12 09/07/17 11:21 Heparin - IVPUSH 1,000 unit PRN PRN Administration Heparin Heparin Sodium (Porcine) 5,000 unit 09/07/17 03:12 Heparin - IVPUSH PRN PRN Heparin Heparin Sodium/Dextrose 25,000 units in 500 mls @ 20 mls/hr 09/07/17 03:15 11:21 Heparin Infusion - IVPB 1,100 units/hr TITR [facility] 22 mls/hr Protocol Administration 1,000 UNITS/HR Levofloxacin 250 mg in 50 mls @ 50 mls/hr 09/07/17 22:00 Levaquin 250 Mg Premixed Ivpb - IVPB HS [facility] Protocol Metronidazole 500 mg in 100 mls @ 100 mls/hr 09/07/17 10:00 09/07/17 09:20 Flagyl 500mg Premixed Ivpb - IVPB 100 mls/hr Q8H-IV ANNA Administration Potassium Chloride 30 meq/ 315 mls @ 88.333 mls/hr 09/07/17 16:30 Sodium Chloride IVPB 09/07/17 20:03 ONCE ONE Metoprolol Tartrate 5 mg 09/07/17 16:30 Lopressor Injection - IVPB Q6H ANNA Nystatin 1 applic 09/07/17 10:00 09/07/17 11:08 Nystop Powder - TP 1 applic DAILY ANNA Administration Pantoprazole Sodium 40 mg 09/07/17 10:00 09/07/17 09:20 Protonix Iv IVPUSH 40 mg DAILY ANNA Administration Potassium Chloride 20 meq 09/07/17 10:00 09/07/17 09:08 K-Dur - PO Not Given DAILY ANNA ASSESSMENT AND PLAN: This is an 86 year old woman with a history of atrial fib, epilepsy, HTN, diverticulitis who presented to the ED with vomiting and diarrhea. 1. SBO - NG tube inserted - Maintain NPO - Continue IV fluid 2. Acute diverticulitis - Continue Levaquin, Flagyl 3. Permanent atrial fibrillation - Toprol XL, Cardizem CD, Eliquis held because patient is NPO and has NGT - Continue heparin IV drip - Continue Lopressor IV 4. Possible acute kidney injury, stage 3 CKD - Creatinine improving - Continue IV fluid - Lisinopril, Aldactone held - Continue to monitor BUN, creatinine 5. Hyperlipidemia - Pravachol held 6. Possible chronic systolic heart failure (on Aldactone, Lasix, Lisinopril, Torpol XL at home) - Continue Lasix (IV while NPO) - Check echocardiogram 7. HTN - Hold Toprol XL, Cardizem CD, Aldactone, Lasix PO - Monitor BP on Lopressor IV and Lasix IV
[2017-09-07] MEDS: METOPROLOL TARTRATE 5 MG/5 ML VIAL IVPB SCH ×2 (17:09→22:35)
[2017-09-07 18:36] LABS: ANION GAP 10 (8-16); BLOOD UREA NITROGEN 52 mg/dL (7-18); CALCIUM 8.9 mg/dL (8.5-10.1); CHLORIDE 113 mmol/L (98-107); CO2 20 mmol/L (21-32); CREATININE 1.3 mg/dL (0.55-1.02); GLUCOSE,RANDOM 106 mg/dL (74-106); POTASSIUM 3.5 mmol/L (3.5-5.1); SODIUM 143 mmol/L (136-145)
--- NOTE | 2017-09-07 20:42 | CONS ---
DATE OF CONSULTATION: 09/07/2017 CARDIOLOGY CONSULTATION REQUESTED BY: Jensen Doshi MD CHIEF COMPLAINT: Lower abdominal pain, history of nausea, retching, constipation, intermittent diarrhea, loss of appetite. The patient is an 86-year-old white female with history of permanent atrial fibrillation, hypertension, hypercholesterolemia, coronary artery disease, status post remote postoperative myocardial infarction, status post PCI, status post pulmonary embolism following surgery. Patient developed lower abdominal pain last Wednesday and initial episode lasted for several hours. She also started experiencing nausea, retching, and vomiting of bile. On Wednesday, she a poor appetite and on Wednesday complained of weakness and was retching, coughing, and then had sudden loss of consciousness. She was brought to the hospital. There is no history of chest pain or discomfort, either at rest or with exertion, no exertional dyspnea, paroxysmal nocturnal dyspnea or orthopnea. PAST HISTORY: 1. As mentioned in the history of present illness. 2. History of pulmonary hypertension. 3. History of congestive heart failure. 4. History of carpal tunnel syndrome (bilateral). 5. Status post herpes zoster. 6. History of childhood epilepsy and was on medication for over 20 years and was discontinued approximately 5 years ago. SURGICAL HISTORY: 1. Status post tonsillectomy. 2. Status post bilateral cataract extraction. 3. Status post partial colectomy for recurring intestinal polyps via laparoscopic procedure. SOCIAL HISTORY: She is a . Had a son and daughter. Nonsmoker, does not drink, and has 1 cup of coffee per week. FAMILY HISTORY: Father at age 84 of renal failure; he was hypertensive. Mother at age 95 related to cerebrovascular accident; she was hypertensive and had atrial fibrillation. ALLERGIES: Patient experienced side effects to ACYCLOVIR. Daughter states that CERTAIN ANTIBIOTICS cause fever. MEDICATIONS PRIOR TO ADMISSION: 1. Cardizem CD 180 mg p.o. daily. 2. Lopressor 100 mg p.o. b.i.d. 3. Aspirin 81 mg p.o. daily. 4. Potassium supplements 20 mEq p.o. daily. 5. Lasix 40 mg 3 tablets p.o. daily. 6. Aldactone 25 mg p.o. daily. 7. Pravastatin 40 mg p.o. daily. 8. Eliquis 5 mg p.o. b.i.d. REVIEW OF SYSTEMS: Constitutional: No history of chills, fever or night sweats. No history of unintentional weight loss. HEENT: No history of headaches, diplopia, blurred vision. No history of epistaxis, hoarseness, or tinnitus. History of bilateral deafness. Cardiovascular: See history of present illness. Respiratory: No history of cough, expectoration or hemoptysis. Gastrointestinal: See history of present illness. Central Nervous System: See history of present illness. No history of focal weakness. History of epilepsy since childhood. Musculoskeletal: History of arthritis involving both knees, status post steroid injection recently involving the left knee. Genitourinary: No history of dysuria, frequency, or hematuria. Hematological: No history of anemia, ecchymosis, or bleeding. EXAMINATION: General: An 86-year-old female who was in moderate distress. There was slight pallor. No cyanosis, clubbing, or jaundice. Vital Signs: Blood pressure was 119/64 mmHg. Pulse 92 beats per minute and irregularly irregular. Temperature was 99.7 degrees Fahrenheit. Oxygen saturation was 95% on room air. Respirations were 18 per minute. Neck: Supple. No jugular venous distention. Hepatojugular reflux was negative. Carotids were 2+, upstrokes were normal, no bruits were heard. There was no thyromegaly. Heart: PMI was in the 5th intercostal space. No heaves or thrills. S1 was variable. S2 was normal. Grade 1/6 decrescendo systolic murmur was heard along the lower left sternal border and apex. No diastolic murmur or gallops were heard. Lungs: Clear on auscultation. Abdomen: Distended, tympanic. Mild diffuse tenderness. No hepatosplenomegaly or palpable masses were felt. Bowel sounds are not heard. No bruits were present. Extremities: No calf tenderness or dependent edema. There were bilateral hammertoes. Femoral pulses were 2+, dorsalis pedis and posterior tibial pulses were weak. LABORATORY DATA: CBC, September 07, 2017: WBC count 9500, hemoglobin was 12 g/dL, platelet count was 280,000. On September 06, 2017, differential revealed a left shift. Chemistry: September 07, 2017, at 0705: Sodium 139, potassium 3.0, chloride 107, CO2 22, BUN 62, creatinine 1.4 mg/dL, calcium 8.4 mg/dL. Alkaline phosphatase was 100. Lipase was 87. ABDOMINAL CT IMPRESSION: 1. 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 2. Moderately distended right renal pelvis consistent with UPJ obstruction. 3. Proximal small-bowel distention consistent with a partial small-bowel obstruction. 4. Inflammatory changes about the proximal sigmoid colon consistent with mild acute diverticulitis. 5. Fibroid uterus. X-RAY OF CHEST: Since August 01, 2009, there is slightly elevation of left diaphragm with large hard sclerotic knob but no signs of acute chest process. There are no signs of pneumoperitoneum or gross abdominal distention. Correlation is recommended. ECG is not available. IMPRESSION: 1. Small-bowel obstruction. 2. History of coronary artery disease, status post myocardial infarction, status post percutaneous coronary intervention/stenting. 3. Hypertension, hypertensive cardiovascular disease. 4. Permanent atrial fibrillation. 5. History of hypercholesterolemia. 6. Pulmonary hypertension. 7. Status post congestive heart failure. 8. History of diverticulitis. 9. Hypokalemia. RECOMMENDATION: 1. Correction of serum potassium. 2. ECG. 3. Bedside echocardiogram. 4. Concur with use of IV Lasix. 5. Close monitoring of electrolytes. 6. Check INR and if it is subtherapeutic, patient should be on heparin as per protocol. PROGNOSIS: Critical. Thank you for your referral. Yours sincerely, JOSEPH MENDOZA M.D. BERT/[id number]
[2017-09-07] MEDS: ATORVASTATIN CA 10 MG TABLET (FP) PO SCH (22:30)
[2017-09-08] MEDS ORDERED: PT OWN MED DRAWER 7, Y5N ONE ×4 (01:05→19:49)
[2017-09-08] MEDS: HEPARIN INFUSION - 25,000 UNITS/500 ML INFUS.BAG IVPB SCH ×3 (03:05→21:05)
[2017-09-08] MEDS: METOPROLOL TARTRATE 5 MG/5 ML VIAL IVPB SCH ×4 (04:35→23:29)
--- NOTE | 2017-09-08 05:48 | PN ---
Physical Exam: SUBJECTIVE: Patient seen and examined - no major overnight events; VSS, afebrile; NG tube inserted yesterday per surgical team, draining bilious fluid; maintained w/ NPO; no further episodes of abdominal pain; pt incontinent of bowel/bladder; 2 BMs overnight, small; No other complaints; denies f/c/n/v/d, ANDRES, cp, cough, sob, back pain, FNDs; still with baseline LE edema, L>R per pt normal and ab distension OBJECTIVE: Vital Signs Intake & Output 09/05/17 09/06/17 09/07/17 09/08/17 23:59 23:59 23:59 23:59 Intake Total 724 Output Total 500 Balance 224 Weight 88.451 kg 86.591 kg Period Temp Pulse Resp BP Sys/Kendall Pulse Ox Last 24 Hr 98.6 F-99.7 F 86-104 18-20 114-139/64-76 95-95 GENERAL: Elderly woman, NAD, A&Ox3 HEAD: NCAT EYES: PERRL, extraocular movements intact, sclera anicteric, conjunctiva clear. No ptosis. ENT: NG tube in place, draining bilious fluid. Ears normal, nares patent, oropharynx clear without exudates, moist mucous membranes. NECK: Trachea midline, full range of motion, supple. LUNGS: Bibasilar crackles. Otherwise, Breath sounds equal, clear to auscultation bilaterally, no wheezes, , no accessory muscle use. HEART: RRR, S1, S2 without murmur, rub or gallop. ABDOMEN: remains Distended, however improved since yesterday. Soft, nontender, + bowel sounds, no guarding, no rebound, no hepatosplenomegaly, no masses. EXTREMITIES: 2+ pulses, warm, well-perfused. 1+ BL pitting edema to knees, L>R NEUROLOGICAL: Cranial nerves II through XII grossly intact. Normal speech, gait not observed. PSYCH: Normal mood, normal affect. pleasant, interactive Laboratory Results - last 24 hr CBC, BMP 09/08/17 06:40 09/08/17 06:40 09/07/17 07:05 09/07/17 15:20 09/07/17 09/07/17 09/07/17 07:05 07:05 07:05 WBC 9.5 RBC 4.02 Hgb 12.0 D Hct 35.0 MCV 87.1 MCH 29.8 MCHC 34.2 RDW 17.0 H Plt Count 280 MPV 7.9 PT with INR INR PTT (Actin FS) Sodium 139 Potassium 3.0 L Chloride 107 Carbon Dioxide 22 Anion Gap 10 BUN 62 H Creatinine 1.4 H Creat Clearance w eGFR 35.74 Random Glucose 97 Calcium 8.4 L Phosphorus 2.8 Magnesium 2.0 Total Bilirubin 0.8 D AST 16 ALT 17 Alkaline Phosphatase 100 Total Protein 6.3 L Albumin 2.3 L Ur Random Sodium Ur Random Potassium Ur Random Chloride Ur Random Urea Nitrogn Blood Type Antibody Screen 09/07/17 09/07/17 09/07/17 07:48 08:00 08:45 WBC RBC Hgb Hct MCV MCH MCHC RDW Plt Count MPV PT with INR 29.60 H INR 2.62 H PTT (Actin FS) Sodium Potassium Chloride Carbon Dioxide Anion Gap BUN Creatinine Creat Clearance w eGFR Random Glucose Calcium Phosphorus Magnesium Total Bilirubin AST ALT Alkaline Phosphatase Total Protein Albumin Ur Random Sodium Ur Random Potassium Ur Random Chloride Ur Random Urea Nitrogn Blood Type A POSITIVE A POSITIVE Antibody Screen Negative 09/07/17 09/07/17 09/07/17 09:55 15:20 15:20 WBC RBC Hgb Hct MCV MCH MCHC RDW Plt Count MPV PT with INR INR PTT (Actin FS) 44.9 H 47.4 H Sodium 143 Potassium 3.5 Chloride 113 H Carbon Dioxide 20 L Anion Gap 10 BUN 52 H Creatinine 1.3 H Creat Clearance w eGFR Random Glucose 106 Calcium 8.9 Phosphorus Magnesium Total Bilirubin AST ALT Alkaline Phosphatase Total Protein Albumin Ur Random Sodium Ur Random Potassium Ur Random Chloride Ur Random Urea Nitrogn Blood Type Antibody Screen 09/07/17 09/08/17 18:00 00:30 WBC RBC Hgb Hct MCV MCH MCHC RDW Plt Count MPV PT with INR INR PTT (Actin FS) 45.1 H Sodium Potassium Chloride Carbon Dioxide Anion Gap BUN Creatinine Creat Clearance w eGFR Random Glucose Calcium Phosphorus Magnesium Total Bilirubin AST ALT Alkaline Phosphatase Total Protein Albumin Ur Random Sodium 9 Ur Random Potassium 29.5 Ur Random Chloride < 10 Ur Random Urea Nitrogn 969 Blood Type Antibody Screen Active Medications Generic Name Dose Route Start Last Admin Trade Name Freq PRN Reason Stop Dose Admin Aspirin 81 mg 09/07/17 10:00 09/07/17 09:07 Asa - PO Not Given DAILY ANNA Atorvastatin Calcium 10 mg 09/07/17 22:00 09/07/17 22:30 Lipitor - PO Not Given HS NANA Benzocaine/Butamben/Tetracaine HCl 1 spray 09/07/17 10:15 09/07/17 11:08 Cetacaine [place] - TP 1 spray DAILY PRN Administration throat irritation Furosemide 60 mg 09/08/17 10:00 Lasix Injection - IVPUSH DAILY ANNA Heparin Sodium (Porcine) 1,000 unit 09/07/17 03:12 09/07/17 18:17 Heparin - IVPUSH 1,000 unit PRN PRN Administration Heparin Heparin Sodium (Porcine) 5,000 unit 09/07/17 03:12 Heparin - IVPUSH PRN PRN Heparin Heparin Sodium/Dextrose 25,000 units in 500 mls @ 20 mls/hr 09/07/17 03:15 18:17 Heparin Infusion - IVPB 1,200 units/hr TITR ANNA 24 mls/hr Protocol Administration 1,000 UNITS/HR Levofloxacin 250 mg in 50 mls @ 50 mls/hr 09/07/17 22:00 09/07/17 22:33 Levaquin 250 Mg Premixed Ivpb - IVPB 50 mls/hr HS ANNA Administration Protocol Metronidazole 500 mg in 100 mls @ 100 mls/hr 09/07/17 10:00 09/07/17 17:18 Flagyl 500mg Premixed Ivpb - IVPB 100 mls/hr Q8H-IV ANNA Administration Metoprolol Tartrate 5 mg 09/07/17 16:30 09/07/17 22:35 Lopressor Injection - IVPB Not Given Q6H ANNA Nystatin 1 applic 09/07/17 10:00 09/07/17 11:08 Nystop Powder - TP 1 applic DAILY ANNA Administration Pantoprazole Sodium 40 mg 09/07/17 10:00 09/07/17 09:20 Protonix Iv IVPUSH 40 mg DAILY ANNA Administration Potassium Chloride 20 meq 09/07/17 10:00 09/07/17 09:08 K-Dur - PO Not Given DAILY ANNA No micro CXR 09/06 -Since 08/01/2009, there is a slightly elevated left hemidiaphragm with large heart, sclerotic knob but no sign of an acute chest process. There is no sign of a pneumoperitoneum or gross abdominal distention. Correlation recommended. Ab XR 09/06 - Impression: Small bowel obstruction. Get CT. Ab CT/Pelvis 09/06 - IMPRESSION: 1. 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 2. Cholelithiasis. 3. 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 4. Proximal small bowel distention consistent with a partial SBO. 5. Inflammatory changes about the proximal sigmoid colon consistent with mild acute diverticulitis. 6. Fibroid uterus. Please see above discussion. Renal/Bladder U/s - 09/07 - IMPRESSION: No left hydronephrosis is noted. 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 The kidneys otherwise demonstrate no definite sonographic abnormality. The current urinary bladder volume is approximately 360 mL. The patient was unable to void at this time - ? early/mild urinary retention. Correlate clinically. Close follow-up sonography may be considered. ASSESSMENT/PLAN: 86 yo F with a PMHx of A-fib, Epilepsy, HTN, diverticulitis, presented to the ED wit vomiting and diarrhea and was found to have SBO & diverticulitis. Plan for medical management for now, NG tube placed with continuation of abx for imaging confirmed diverticulitis. GI and Surgery following. #Partial SBO - Imaging confirmed, transition point not identified; pt passing flatus; NG tube in place, drained 200 today -Surgery consulted, plan for conservative management for now -no hydration for now -GI consulted; agree with plan for NGT and abx -NGT remains; draining bilious fluid, decreased outpt since yesterday; maintain per surgery -Coags/Type & screen -NPO for now #Diverticulitis - confirmed on CT ab/pelvis - Levaquin/flagyl day 2 - no hydration for now as clinically volume overloaded -c/w bowel rest - GI following - f/u c diff studies, stool cultures - f/u FOBT #A-fib - controlled - trend INR -holding eliquis 5mg BID -c/w Heparin ggt -lopressor q6h 5mg IVPB; hold home metoprolol tartrate as po -holding cardizem for now as po med - cardiology consulted #Hypernatremia - Na 147 today - possible secondary to diuresis, decreased fluid intake - trend #Hypokalemia - 3.4 this am - KCL riders x3 again - trend, replete as needed #CHF - secondary likely to afib - strict Is and Os - Lasix 60mg IV daily started; monitor for hypoK and worsening JAROD - repeat ECHO - cardiology consulted #JAROD - 1.3 today, improving; baseline 0.8 per PMD; prior hx of AIN -avoid nephrotoxins -hold aldactone; lasix 60mg IV daily -renally dose all meds - bladder and renal U/S as noted above - if JAROD worsens with lasix, consider decreasing/removing #HLD -c/w home statin #PPx -Heparin gtt #FEN No hydration for now given diuresis Daily lytes NPO Plan discussed with Dr. Tico Arenas, PGY1 Visit type - Emergency Visit Emergency Visit: Yes ED Registration Date: 09/07/17 Care time: The patient presented to the Emergency Department on the above date and was hospitalized for further evaluation of their emergent condition. - New Patient This patient is new to me today: No - Critical Care Critical Care patient: No - Discharge Referral Referred to [facility] Med P.C.: No
[2017-09-08 07:34] LABS: EOS % 0.9 % (0-4.5); HEMATOCRIT 34.7 % (32.4-45.2); HEMOGLOBIN 11.7 GM/dL (10.7-15.3); LYMPH % 7.4 % (8-40); MCH 29.8 pg (25.7-33.7); MCHC 33.8 g/dl (32.0-36.0); MEAN CELL VOLUME 88.2 fl (80-96); MEAN PLT VOLUME 7.8 fl (7.5-11.1); MONO % 8.3 % (3.8-10.2); NEUT % 83.4 % (42.8-82.8); PLATELET COUNT 256 K/MM3 (134-434); RBC 3.93 M/mm3 (3.60-5.2); RDW 17.7 % (11.6-15.6); WHITE BLOOD COUNT 9.8 K/mm3 (4.0-10.0)
--- NOTE | 2017-09-08 07:51 | PN ---
Progress Note (short form) - Note Progress Note: 86 yo female admitted with abd distension, n/v, and diarrhea. A CT scan identified SBO and ? diverticulitis. Per RN notes, no acute events over past 24 hours. Patient had a bm (recorded in RN notes but doesn't state if formed vs. soft vs. liquid)...patient doesn't know. States she feels much better after having NGT inserted yesterday. Currently, resting in position of comfort (supine at 30 degrees). Denies abd pain, n/v/f/c. Last Vital Signs Temp Pulse Resp BP Pulse Ox 99.9 F H 108 H 20 134/64 95 09/08/17 06:02 09/08/17 06:02 09/08/17 06:02 09/08/17 06:02 09/07/17 21:00 OUTPUT 09/07/17 09/08/17 17:41 07:10 NGT 500 10 PE Gen: alert. nad. ABD: Softly distended. NT. + BS in all quadrants. LE: + edema bilat. No calf tenderness bilat Problem List - Problems (1) Partial obstruction of small intestine Assessment/Plan: Cont NGT to LWCS f/u AXR --> comparative study NPO / IVF GI / DVT PPX f/u BMP and correct any elyte deficiencies Code(s): K56.600 - PARTIAL INTESTINAL OBSTRUCTION, UNSPECIFIED TO CAUSE
--- NOTE | 2017-09-08 09:20 | MSN ---
Progress Note (short form) - Note Progress Note: SUBJECTIVE: Patient seen and examined this morning. NGT in place since yesterday am and draining greenish/brown fluid. Overnight patient had two small bowel movements. Tachycardia to 109 bpm also noted. Patient feels about the same this morning but notes that her abdomen is slightly less distended. She complains of irritation in her throat from the NGT relieved by cetacaine spray. She is hungry and wants ice water. She denies abdominal pain, nausea/vomiting , SOB, chest pain, fever/chills, or headache. OBJECTIVE: Vital Signs Period Temp Pulse Resp BP Sys/Kendall Pulse Ox Last 24 Hr 98.7 F-99.9 F 86-108 20-20 114-139/60-76 95 GENERAL:Elderly woman with slightly labored breathing, awake, alert and orientated HEAD: Normal with no evidence of trauma EYES: Conjuncitiva clear, sclera anicteric NOSE: NGT in right nostril MOUTH: Dry mucous membranes, no lesions or plaques NECK: No JVD, supple, no lymphadenopathy or thyromegaly, trachea midline CARDIOVASCULAR: Irregular at 90 bpm, +S1/S2, no murmurs, rubs, or gallops LUNGS: Decreased breath sounds at bases b/l, minimal crackles b/l, no wheezes ABDOMEN: Normoactive bowel sounds, tympanic to percussion, soft, non-tender, no masses, no rebound or guarding EXTREMITIES: 2 + PT pulse b/l, 1 + non-pitting edema b/l-left more significant than right; healed scar on right knee NEURO: CN II-XII grossly intact, decreased hearing b/l, normal speech, gait not observed PSYCH: Pleasant, normal mood and affect, cooperative CBC, BMP 09/08/17 06:40 09/08/17 06:40 INR, PTT INR 2.62 (0.82-1.09) H 09/07/17 08:00 Current Medications Generic Name Dose Route Start Last Admin Trade Name Freq PRN Reason Stop Dose Admin Aspirin 81 mg 09/07/17 10:00 09/08/17 09:43 Asa - PO Not Given DAILY [facility] Atorvastatin Calcium 10 mg 09/07/17 22:00 09/07/17 22:30 Lipitor - PO Not Given HS [facility] Benzocaine/Butamben/Tetracaine HCl 1 spray 09/07/17 10:15 09/07/17 11:08 Cetacaine [place] - TP 1 spray DAILY PRN Administration throat irritation Furosemide 60 mg 09/08/17 10:00 09/08/17 09:44 Lasix Injection - IVPUSH 60 mg DAILY ANNA Administration Heparin Sodium (Porcine) 1,000 unit 09/07/17 03:12 09/07/17 18:17 Heparin - IVPUSH 1,000 unit PRN PRN Administration Heparin Heparin Sodium (Porcine) 5,000 unit 09/07/17 03:12 Heparin - IVPUSH PRN PRN Heparin Heparin Sodium/Dextrose 25,000 units in 500 mls @ 20 mls/hr 09/07/17 03:15 03:15 Heparin Infusion - IVPB 1,300 units/hr TITR ANNA 26 mls/hr Protocol Administration 1,000 UNITS/HR Levofloxacin 250 mg in 50 mls @ 50 mls/hr 09/07/17 22:00 09/07/17 22:33 Levaquin 250 Mg Premixed Ivpb - IVPB 50 mls/hr HS ANNA Administration Protocol Metronidazole 500 mg in 100 mls @ 100 mls/hr 09/07/17 10:00 09/08/17 09:44 Flagyl 500mg Premixed Ivpb - IVPB 100 mls/hr Q8H-IV ANNA Administration Metoprolol Tartrate 5 mg 09/07/17 16:30 09/08/17 04:35 Lopressor Injection - IVPB Not Given Q6H ANNA Nystatin 1 applic 09/07/17 10:00 09/08/17 09:46 Nystop Powder - TP 1 applic DAILY ANNA Administration Pantoprazole Sodium 40 mg 09/07/17 10:00 09/08/17 09:46 Protonix Iv IVPUSH 40 mg DAILY ANNA Administration Potassium Chloride 20 meq 09/07/17 10:00 09/08/17 09:44 K-Dur - PO Not Given DAILY ANNA IMAGING: EKG (09-06-17): Atrial fibrillation at 86 bpm; Right bundle branch block; T- wave inversions in anteriolateral leads CXR (09-06-17): Elevated left hemidiaphragm; cardiomegaly CT abdomen/pelvis (09-06-17): 1. Small bowel distension suggestive of partial SBO 2. Mild diverticulitis of sigmoid colon 3. Left adrenal myelolipoma 4. cholelithiasis 5. Right UPJ obstruction 6. Fibroid uterus Renal/bladder U/S (09-07-17): Right UPJ obstruction; No left hydronephrosis; 360 ml of retained urine Abd X-Ray (09-08-17): No evidence of intestinal obstruction ASSESSMENT/PLAN: 86 yr old woman with history of afib (s/p NM with stent placement), seizures (d/ c medication 2013), HTN, and right colon bowel resection (2001 due to recurrent polyp) presented to the ED with 4 days of bilious vomiting and diarrhea and was found to have a partial SBO and mild diverticulitis. #Partial SBO demonstrated on CT abd/pelvis -Surgery consulted; recommend conservative management for now -NGT in place; drained 500 ml of fluid 5; placed on low suction -Repeat Abd X-ray ordered -NPO; discontinue fluids; monitor electrolytes closely -Coags/ type and screen ordered #Mild diverticulitis demonstrated on CT abd/pelvis- Not associated with leukocytosis or fever -Dr. Sarmiento consulted-agree with conservative management -NPO -Levaquin 250 mg IV QD (renal dosing) and flagyl 500 mg IV Q8H (Day 2) for total of 7 day course #Acute Kidney Injury-improving -Baseline creatinine is 0.8 per PCP office- however patient has history of acute interstitial nephritis (2009-drug rxn to acyclovir) -Creatinine trending down 1.6<1.4<1.3 -Hold home med aldactone -Restarted IV lasix 60 mg QD -Renally dose medications -bladder/kidney u/s findings consistent with an acute process rather than a chronic #Permanent Atrial fibrillation with concomitant CHF-Rate controlled -Complete cardiac history unknown-s/p NM with stent placement in 2006; diagnosis of pulmonary hypertension -Stop home Eliquis and start heparin ggt -PTT 61.5 sec; therapeutic range -Hold home diltiazem 180 mg QD, metoprolol tartate 100mg BID -Start IV lopressor 5 mg Q6H; ventricular rate has been controlled -Echo ordered -Cardiology consulted; agree with restarting lasix 60 mg IV QD #Hypercholesterolemia -Continue home med- pravastatin 40 mg QD #FEN -Discontinue IVF as patient is clinically volume overloaded -Hypokalemia-Replete with potassium chloride 10 mEq IV (potassium 3.4 in am) and repeat BMP -Hypophosphatemia-replete phosphorous -Hypernatremia-Na 147; possibly secondary to diuersis-continue to monitor #DVT prophylaxis -Patient has hx of PE following knee replacement in 2006 -Heparin ggt #Dispo-Continued in-patient treatment
[2017-09-08] MEDS: ASPIRIN 81 MG CHEWABLE TABLETS PO SCH (09:43)
[2017-09-08] MEDS: FUROSEMIDE 40 MG/4 ML INJECTABLE VIAL IVPUSH SCH (09:44)
[2017-09-08] MEDS: POTASSIUM CHLORIDE TABS 20 MEQ TABLET.ER (FP) PO SCH (09:44)
[2017-09-08] MEDS: PANTOPRAZOLE SODIUM 40 MG VIAL IVPUSH SCH (09:46)
[2017-09-08] MEDS: NYSTATIN POWDER 100,000 UNITS/GM - 15 GM TOPICAL POWDER TP SCH (09:46)
--- NOTE | 2017-09-08 10:31 | EKG ---
Test Reason : Blood Pressure : / mmHG Vent. Rate : 086 BPM Atrial Rate : 326 BPM P-R Int : 000 ms QRS Dur : 120 ms QT Int : 400 ms P-R-T Axes : 000 018 243 degrees QTc Int : 478 ms ATRIAL FIBRILLATION RIGHT BUNDLE BRANCH BLOCK T WAVE ABNORMALITY, CONSIDER INFEROLATERAL ISCHEMIA ABNORMAL ECG WHEN COMPARED WITH ECG OF 01-AUG-2009 15:03, RIGHT BUNDLE BRANCH BLOCK IS NOW PRESENT MINIMAL CRITERIA FOR ANTERIOR INFARCT ARE NO LONGER PRESENT Confirmed by LORENA GOVEA MD ([id number]) on 09/08/2017 10:30:40 AM Referred By: Confirmed By:LORENA GOVEA MD
[2017-09-08 11:16] LABS: CHLORIDE 115 mmol/L (98-107); POTASSIUM 3.4 mmol/L (3.5-5.1); SODIUM 147 mmol/L (136-145)
[2017-09-08 11:21] LABS: ALBUMIN 2.2 g/dl (3.4-5.0); ALK PHOS 91 U/L (45-117); ANION GAP 15 (8-16); BILIRUBIN,TOTAL 0.5 mg/dL (0.2-1.0); BLOOD UREA NITROGEN 40 mg/dL (7-18); CO2 17 mmol/L (21-32); CREATININE 1.3 mg/dL (0.55-1.02); GLUCOSE,RANDOM 93 mg/dL (74-106); MAGNESIUM 2.1 mg/dL (1.8-2.4); PHOSPHOROUS 1.9 mg/dL (2.5-4.9); SGOT/AST 27 U/L (15-37); SGPT/ALT 19 U/L (12-78); TOT PROT 5.9 g/dl (6.4-8.2)
[2017-09-08] MEDS: POTASSIUM CHLORIDE 10 MEQ in SODIUM CHLORIDE 100 ML IVPB SCH ×3 (11:45→13:45)
--- NOTE | 2017-09-08 11:52 | PN ---
Progress Note, Physician History of Present Illness: Clinically the same. NGT with continuous light green-colored return. - Current Medication List Current Medications: Active Medications Aspirin (Asa -) 81 mg PO DAILY [facility] Last Admin: 09/08/17 09:43 Dose: Not Given Atorvastatin Calcium (Lipitor -) 10 mg PO HS [facility] Last Admin: 09/07/17 22:30 Dose: Not Given Benzocaine/Butamben/Tetracaine HCl (Cetacaine [place] -) 1 spray TP DAILY PRN PRN Reason: throat irritation Last Admin: 09/07/17 11:08 Dose: 1 spray Furosemide (Lasix Injection -) 60 mg IVPUSH DAILY [facility] Last Admin: 09/08/17 09:44 Dose: 60 mg Heparin Sodium (Porcine) (Heparin -) 1,000 unit IVPUSH PRN PRN PRN Reason: Heparin Last Admin: 09/07/17 18:17 Dose: 1,000 unit Heparin Sodium (Porcine) (Heparin -) 5,000 unit IVPUSH PRN PRN PRN Reason: Heparin Heparin Sodium/Dextrose (Heparin Infusion -) 25,000 units in 500 mls @ 20 mls/ hr IVPB TITR ANNA; 1,000 UNITS/HR PRN Reason: Protocol Last Admin: 09/08/17 03:15 Dose: 1,300 units/hr, 26 mls/hr Levofloxacin (Levaquin 250 Mg Premixed Ivpb -) 250 mg in 50 mls @ 50 mls/hr IVPB HS ANNA PRN Reason: Protocol Last Admin: 09/07/17 22:33 Dose: 50 mls/hr Metronidazole (Flagyl 500mg Premixed Ivpb -) 500 mg in 100 mls @ 100 mls/hr IVPB Q8H-IV ANNA Last Admin: 09/08/17 09:44 Dose: 100 mls/hr Potassium Chloride 10 meq/ (Sodium Chloride) 105 mls @ 100 mls/hr IVPB Q60M [facility] Stop: 09/08/17 14:44 Metoprolol Tartrate (Lopressor Injection -) 5 mg IVPB Q6H [facility] Last Admin: 09/08/17 04:35 Dose: Not Given Nystatin (Nystop Powder -) 1 applic TP DAILY [facility] Last Admin: 09/08/17 09:46 Dose: 1 applic Pantoprazole Sodium (Protonix Iv) 40 mg IVPUSH DAILY [facility] Last Admin: 09/08/17 09:46 Dose: 40 mg Potassium Chloride (K-Dur -) 20 meq PO DAILY ANNA Last Admin: 09/08/17 09:44 Dose: Not Given - Objective Vital Signs: Vital Signs Temperature 99.9 F H 09/08/17 06:02 Pulse Rate 108 H 09/08/17 06:02 Respiratory Rate 20 09/08/17 06:02 Blood Pressure 134/64 09/08/17 06:02 O2 Sat by Pulse Oximetry (%) 95 09/07/17 21:00 Constitutional: Yes: No Distress, Calm Eyes: Yes: Conjunctiva Clear HENT: Yes: Atraumatic Neck: Yes: Supple Cardiovascular: Yes: Regular Rate and Rhythm Respiratory: Yes: Regular Gastrointestinal: Yes: Soft. No: Distention, Tenderness, Epigastrium Neurological: Yes: Alert Labs: CBC, BMP 09/08/17 06:40 09/08/17 06:40 INR, PTT INR 2.62 (0.82-1.09) H 09/07/17 08:00 Laboratory Last Values WBC 9.8 K/mm3 (4.0-10.0) 09/08/17 06:40 RBC 3.93 M/mm3 (3.60-5.2) 09/08/17 06:40 Hgb 11.7 GM/dL (10.7-15.3) 09/08/17 06:40 Hct 34.7 % (32.4-45.2) 09/08/17 06:40 MCV 88.2 fl (80-96) 09/08/17 06:40 MCH 29.8 pg (25.7-33.7) 09/08/17 06:40 MCHC 33.8 g/dl (32.0-36.0) 09/08/17 06:40 RDW 17.7 % (11.6-15.6) H 09/08/17 06:40 Plt Count 256 K/MM3 (134-434) 09/08/17 06:40 MPV 7.8 fl (7.5-11.1) 09/08/17 06:40 Neutrophils % 83.4 % (42.8-82.8) H 09/08/17 06:40 Lymphocytes % 7.4 % (8-40) L D 09/08/17 06:40 Monocytes % 8.3 % (3.8-10.2) 09/08/17 06:40 Eosinophils % 0.9 % (0-4.5) D 09/08/17 06:40 Basophils % 0.0 % (0-2.0) 09/08/17 06:40 PT with INR 29.60 SEC (9.7-13.0) H 09/07/17 08:00 INR 2.62 (0.82-1.09) H 09/07/17 08:00 PTT (Actin FS) 61.5 SECONDS (26.9-34.4) H D 09/08/17 06:40 Sodium 147 mmol/L (136-145) H 09/08/17 06:40 Potassium 3.4 mmol/L (3.5-5.1) L 09/08/17 06:40 Chloride 115 mmol/L (98-107) H 09/08/17 06:40 Carbon Dioxide 17 mmol/L (21-32) L 09/08/17 06:40 Anion Gap 15 (8-16) 09/08/17 06:40 BUN 40 mg/dL (7-18) H 09/08/17 06:40 Creatinine 1.3 mg/dL (0.55-1.02) H 09/08/17 06:40 Creat Clearance w eGFR 38.93 (>60) 09/08/17 06:40 Random Glucose 93 mg/dL (74-106) 09/08/17 06:40 Calcium 9.0 mg/dL (8.5-10.1) 09/08/17 06:40 Phosphorus 1.9 mg/dL (2.5-4.9) L 09/08/17 06:40 Magnesium 2.1 mg/dL (1.8-2.4) 09/08/17 06:40 Total Bilirubin 0.5 mg/dL (0.2-1.0) D 09/08/17 06:40 AST 27 U/L (15-37) 09/08/17 06:40 ALT 19 U/L (12-78) 09/08/17 06:40 Alkaline Phosphatase 91 U/L (45-117) 09/08/17 06:40 Creatine Kinase 23 IU/L (26-192) L 09/06/17 19:41 Troponin I < 0.02 ng/ml (0.00-0.05) 09/06/17 19:41 Total Protein 5.9 g/dl (6.4-8.2) L 09/08/17 06:40 Albumin 2.2 g/dl (3.4-5.0) L 09/08/17 06:40 Lipase 87 U/L (73-393) 09/06/17 19:41 Ur Random Sodium 9 MMOL/L 09/07/17 18:00 Ur Random Potassium 29.5 MMOL/L 09/07/17 18:00 Ur Random Chloride < 10 MMOL/L 09/07/17 18:00 Ur Random Urea Nitrogn 969 mg/dL 09/07/17 18:00 Blood Type A POSITIVE 09/07/17 08:45 Antibody Screen Negative 09/07/17 07:48 Problem List - Problems (1) Partial obstruction of small intestine Code(s): K56.600 - PARTIAL INTESTINAL OBSTRUCTION, UNSPECIFIED TO CAUSE (2) Diverticulitis Code(s): K57.92 - DVTRCLI OF INTEST, PART UNSP, W/O PERF OR ABSCESS W/O BLEED (3) Diverticulitis large intestine Code(s): K57.32 - DVTRCLI OF LG INT W/O PERFORATION OR ABSCESS W/O BLEEDING Assessment/Plan Partial small bowel obstruction with NG tube stool draining good amount of bile-colored fluid. Continue the same management. Surgical follow-up.
--- NOTE | 2017-09-08 12:13 | PN ---
Teaching Attending Note Name of Resident: Balaji Arenas ATTENDING PHYSICIAN STATEMENT I saw and evaluated the patient. I reviewed the resident's note and discussed the case with the resident. I agree with the resident's findings and plan as documented. SUBJECTIVE: Patient denies abdominal pain, nausea. She reports having a small bowel movement. OBJECTIVE: Vital Signs Period Temp Pulse Resp BP Sys/Kendall Pulse Ox Last 24 Hr 98.7 F-99.9 F 86-108 20-20 114-139/60-76 95 HEART: S1S2, RRR LUNGS: Clear ABDOMEN: Obese, soft, non-tender, non-distended, normal BS EXTREMITIES: Trace edema Laboratory Results - last 24 hr 09/07/17 09/07/17 09/07/17 15:20 15:20 18:00 WBC RBC Hgb Hct MCV MCH MCHC RDW Plt Count MPV Neutrophils % Lymphocytes % Monocytes % Eosinophils % Basophils % PTT (Actin FS) 47.4 H Sodium 143 Potassium 3.5 Chloride 113 H Carbon Dioxide 20 L Anion Gap 10 BUN 52 H Creatinine 1.3 H Creat Clearance w eGFR Random Glucose 106 Calcium 8.9 Phosphorus Magnesium Total Bilirubin AST ALT Alkaline Phosphatase Total Protein Albumin Ur Random Sodium 9 Ur Random Potassium 29.5 Ur Random Chloride < 10 Ur Random Urea Nitrogn 969 09/08/17 09/08/17 09/08/17 00:30 06:40 06:40 WBC 9.8 RBC 3.93 Hgb 11.7 Hct 34.7 MCV 88.2 MCH 29.8 MCHC 33.8 RDW 17.7 H Plt Count 256 MPV 7.8 Neutrophils % 83.4 H Lymphocytes % 7.4 L D Monocytes % 8.3 Eosinophils % 0.9 D Basophils % 0.0 PTT (Actin FS) 45.1 H Sodium 147 H Potassium 3.4 L Chloride 115 H Carbon Dioxide 17 L Anion Gap 15 BUN 40 H Creatinine 1.3 H Creat Clearance w eGFR 38.93 Random Glucose 93 Calcium 9.0 Phosphorus 1.9 L Magnesium 2.1 Total Bilirubin 0.5 D AST 27 ALT 19 Alkaline Phosphatase 91 Total Protein 5.9 L Albumin 2.2 L Ur Random Sodium Ur Random Potassium Ur Random Chloride Ur Random Urea Nitrogn 09/08/17 06:40 WBC RBC Hgb Hct MCV MCH MCHC RDW Plt Count MPV Neutrophils % Lymphocytes % Monocytes % Eosinophils % Basophils % PTT (Actin FS) 61.5 H D Sodium Potassium Chloride Carbon Dioxide Anion Gap BUN Creatinine Creat Clearance w eGFR Random Glucose Calcium Phosphorus Magnesium Total Bilirubin AST ALT Alkaline Phosphatase Total Protein Albumin Ur Random Sodium Ur Random Potassium Ur Random Chloride Ur Random Urea Nitrogn Current Medications Generic Name Dose Route Start Last Admin Trade Name Freq PRN Reason Stop Dose Admin Aspirin 81 mg 09/07/17 10:00 09/08/17 09:43 Asa - PO Not Given DAILY ANNA Atorvastatin Calcium 10 mg 09/07/17 22:00 09/07/17 22:30 Lipitor - PO Not Given HS ANNA Benzocaine/Butamben/Tetracaine HCl 1 spray 09/07/17 10:15 09/07/17 11:08 Cetacaine [place] - TP 1 spray DAILY PRN Administration throat irritation Furosemide 60 mg 09/08/17 10:00 09/08/17 09:44 Lasix Injection - IVPUSH 60 mg DAILY ANNA Administration Heparin Sodium (Porcine) 1,000 unit 09/07/17 03:12 09/07/17 18:17 Heparin - IVPUSH 1,000 unit PRN PRN Administration Heparin Heparin Sodium (Porcine) 5,000 unit 09/07/17 03:12 Heparin - IVPUSH PRN PRN Heparin Heparin Sodium/Dextrose 25,000 units in 500 mls @ 20 mls/hr 09/07/17 03:15 03:15 Heparin Infusion - IVPB 1,300 units/hr TITR ANNA 26 mls/hr Protocol Administration 1,000 UNITS/HR Levofloxacin 250 mg in 50 mls @ 50 mls/hr 09/07/17 22:00 09/07/17 22:33 Levaquin 250 Mg Premixed Ivpb - IVPB 50 mls/hr HS ANNA Administration Protocol Metronidazole 500 mg in 100 mls @ 100 mls/hr 09/07/17 10:00 09/08/17 09:44 Flagyl 500mg Premixed Ivpb - IVPB 100 mls/hr Q8H-IV ANNA Administration Potassium Chloride 10 meq/ 105 mls @ 100 mls/hr 09/08/17 11:45 Sodium Chloride IVPB 09/08/17 14:44 Q60M ANNA Metoprolol Tartrate 5 mg 09/07/17 16:30 09/08/17 04:35 Lopressor Injection - IVPB Not Given Q6H ANNA Nystatin 1 applic 05/01/18 10:00 09/08/17 09:46 Nystop Powder - TP 1 applic DAILY ANNA Administration Pantoprazole Sodium 40 mg 09/07/17 10:00 09/08/17 09:46 Protonix Iv IVPUSH 40 mg DAILY ANNA Administration Potassium Chloride 20 meq 09/07/17 10:00 09/08/17 09:44 K-Dur - PO Not Given DAILY ANNA ASSESSMENT AND PLAN: This is an 86 year old woman with a history of atrial fib, epilepsy, HTN, diverticulitis who presented to the ED with vomiting and diarrhea. 1. Partial SBO - Maintain NGT, NPO - Continue IV fluid 2. Acute diverticulitis - Continue Levaquin, Flagyl 3. Hypokalemia - Replete potassium 4. Hypophosphatemia - Supplement phosphorus 5. Hypernatremia 6. Permanent atrial fibrillation - Continue to hold Toprol XL, Cardizem CD, Eliquis while patient is NPO - Continue heparin IV drip - Continue Lopressor IV 7. Acute kidney injury on stage 3 CKD - Creatinine improving - Continue IV fluid - Continue to hold Lisinopril, Aldactone - Continue to monitor BUN, creatinine 8. Hyperlipidemia - Pravachol held 9. Possible chronic systolic heart failure (on Aldactone, Lasix, Lisinopril, Toprol XL at home) - Continue Lasix (IV while NPO) - Echocardiogram pending 10. HTN - Hold Toprol XL, Cardizem CD, Aldactone, Lasix PO - Monitor BP on Lopressor IV and Lasix IV
--- NOTE | 2017-09-08 13:35 | PN ---
Progress Note (short form) - Note Progress Note: S: 86 year old white female with history of permanent atrial fibrillation, hypertension, hypercholesterolemia, coronary artery disease, status post remote postoperative myocardial infarction, status post PCI, status post pulmonary embolism following surgery. NG tube in place with significant drainage. No SOB or chest discomfort reported. No palpitations, lightheadedness, dizziness or recurrence of syncope. Active Medications Generic Name Dose Route Start Last Admin Trade Name Freq PRN Reason Stop Dose Admin Aspirin 81 mg 09/07/17 10:00 09/08/17 09:43 Asa - PO Not Given DAILY ANNA Atorvastatin Calcium 10 mg 09/07/17 22:00 09/07/17 22:30 Lipitor - PO Not Given HS ANNA Benzocaine/Butamben/Tetracaine HCl 1 spray 09/07/17 10:15 09/07/17 11:08 Cetacaine [place] - TP 1 spray DAILY PRN Administration throat irritation Furosemide 60 mg 09/08/17 10:00 09/08/17 09:44 Lasix Injection - IVPUSH 60 mg DAILY ANNA Administration Heparin Sodium (Porcine) 1,000 unit 09/07/17 03:12 09/07/17 18:17 Heparin - IVPUSH 1,000 unit PRN PRN Administration Heparin Heparin Sodium (Porcine) 5,000 unit 09/07/17 03:12 Heparin - IVPUSH PRN PRN Heparin Heparin Sodium/Dextrose 25,000 units in 500 mls @ 20 mls/hr 09/07/17 03:15 03:15 Heparin Infusion - IVPB 1,300 units/hr TITR ANNA 26 mls/hr Protocol Administration 1,000 UNITS/HR Levofloxacin 250 mg in 50 mls @ 50 mls/hr 09/07/17 22:00 09/07/17 22:33 Levaquin 250 Mg Premixed Ivpb - IVPB 50 mls/hr HS ANNA Administration Protocol Metronidazole 500 mg in 100 mls @ 100 mls/hr 09/07/17 10:00 09/08/17 09:44 Flagyl 500mg Premixed Ivpb - IVPB 100 mls/hr Q8H-IV ANNA Administration Potassium Chloride 10 meq/ 105 mls @ 100 mls/hr 09/08/17 11:45 09/08/17 11:45 Sodium Chloride IVPB 09/08/17 14:44 100 mls/hr Q60M ANNA Administration Metoprolol Tartrate 5 mg 09/07/17 16:30 09/08/17 10:30 Lopressor Injection - IVPB Not Given Q6H ANNA Nystatin 1 applic 09/07/17 10:00 09/08/17 09:46 Nystop Powder - TP 1 applic DAILY ANNA Administration Pantoprazole Sodium 40 mg 09/07/17 10:00 09/08/17 09:46 Protonix Iv IVPUSH 40 mg DAILY ANNA Administration Potassium Chloride 20 meq 09/07/17 10:00 09/08/17 09:44 K-Dur - PO Not Given DAILY ANNA Potassium Phos/Sodium Phos 1 packet 09/08/17 14:00 Phos-Nak Packet - PO 09/09/17 06:01 TID ANNA O: 86 year old female was in no acute distress, no pallor, cyanosis, clubbing, or jaundice. Last Vital Signs Temp Pulse Resp BP Pulse Ox 99.9 F H 106 Irregular 20 130/70 95 09/08/17 06:02 09/08/17 10:30 09/08/17 06:02 09/08/17 10:30 09/07/17 21:00 Neck: Supple, no JVD, negative HJR, carotids were equal and upstrokes were normal, no thyromegaly appreciated. Heart: PMI was in the 5th intercostal space, no heaves or thrills, S1 and S2 were normal. No murmurs or gallops were appreciated. Lungs: Clear on auscultation bilaterally. Abdomen: Soft, nontender, no hepatosplenomegaly appreciated, and no palpable masses were felt. Extremities: No calf tenderness or dependent edema. Pulses are normal. CBC, BMP 09/08/17 06:40 09/08/17 06:40 IMPRESSION: 1. Permanent atrial fibrillation with period of RVR. 2. CAD, s/p PR, s/p PCI 3. Hypertension. 4. Interstinal obstruction, etiology to be determined. 5. Hypokalemia. RECOMMENDATION: 1. Continue current medications. 2. Check serum magnesium level. 3. Continue correction of potassium.
[2017-09-08] MEDS: ATORVASTATIN CA 10 MG TABLET (FP) PO SCH (22:07)
[2017-09-08] MEDS: NAPH,MB-DB/K PH,MBDB POWDER PACKET PO SCH (22:07)
[2017-09-09] MEDS: HEPARIN INFUSION - 25,000 UNITS/500 ML INFUS.BAG IVPB SCH (05:47)
[2017-09-09] MEDS: METOPROLOL TARTRATE 5 MG/5 ML VIAL IVPB SCH (05:49)
--- NOTE | 2017-09-09 06:38 | PN ---
Physical Exam: SUBJECTIVE: Patient seen and examined - no overnight events; VSS, afebrile; Still with NG tube, heparin gtt; 2 BMs yesterday; NGT pulled at 8PM last night due to decreased outpt; pt with no complaints; States abdominal pain improving; Denies f/c/n/v/d, CP, cough, sob, back pain, LE edema, FNDs OBJECTIVE: Vital Signs Intake & Output 09/06/17 09/07/17 09/08/17 09/09/17 23:59 23:59 23:59 23:59 Intake Total 724 1167 Output Total 500 10 Balance 224 1157 Weight 88.451 kg 86.591 kg 85.275 kg Period Temp Pulse Resp BP Sys/Kendall Pulse Ox Last 24 Hr 98.2 F-99.3 F 100-112 20-20 128-145/56-85 95-95 GENERAL: Elderly woman, NAD, A&Ox3 HEAD: NCAT EYES: PERRL, extraocular movements intact, sclera anicteric, conjunctiva clear. No ptosis. ENT: Ears normal, nares patent, oropharynx clear without exudates, moist mucous membranes. NECK: Trachea midline, full range of motion, supple. LUNGS: Decreased air entry at bases. Otherwise, Breath sounds equal, clear to auscultation bilaterally, no wheezes, , no accessory muscle use. HEART: RRR, S1, S2 without murmur, rub or gallop. ABDOMEN: less distended today. Soft, nontender, + bowel sounds, no guarding, no rebound, no hepatosplenomegaly, no masses. EXTREMITIES: 2+ pulses, warm, well-perfused. 1+ BL pitting edema to knees, L>R NEUROLOGICAL: Cranial nerves II through XII grossly intact. Normal speech, gait not observed. PSYCH: Normal mood, normal affect. pleasant, interactive Laboratory Results - last 24 hr CBC, BMP 09/09/17 06:00 09/09/17 06:00 09/08/17 06:40 09/08/17 06:40 09/08/17 09/08/17 09/08/17 06:40 06:40 06:40 WBC 9.8 RBC 3.93 Hgb 11.7 Hct 34.7 MCV 88.2 MCH 29.8 MCHC 33.8 RDW 17.7 H Plt Count 256 MPV 7.8 Neutrophils % 83.4 H Lymphocytes % 7.4 L D Monocytes % 8.3 Eosinophils % 0.9 D Basophils % 0.0 PTT (Actin FS) 61.5 H D Sodium 147 H Potassium 3.4 L Chloride 115 H Carbon Dioxide 17 L Anion Gap 15 BUN 40 H Creatinine 1.3 H Creat Clearance w eGFR 38.93 Random Glucose 93 Calcium 9.0 Phosphorus 1.9 L Magnesium 2.1 Total Bilirubin 0.5 D AST 27 ALT 19 Alkaline Phosphatase 91 Total Protein 5.9 L Albumin 2.2 L Active Medications Generic Name Dose Route Start Last Admin Trade Name Freq PRN Reason Stop Dose Admin Aspirin 81 mg 09/07/17 10:00 09/08/17 09:43 Asa - PO Not Given DAILY [facility] Atorvastatin Calcium 10 mg 09/07/17 22:00 09/08/17 22:07 Lipitor - PO Not Given HS [facility] Benzocaine/Butamben/Tetracaine HCl 1 spray 09/07/17 10:15 09/07/17 11:08 Cetacaine [place] - TP 1 spray DAILY PRN Administration throat irritation Furosemide 60 mg 09/08/17 10:00 09/08/17 09:44 Lasix Injection - IVPUSH 60 mg DAILY ANNA Administration Heparin Sodium (Porcine) 1,000 unit 09/07/17 03:12 09/07/17 18:17 Heparin - IVPUSH 1,000 unit PRN PRN Administration Heparin Heparin Sodium (Porcine) 5,000 unit 09/07/17 03:12 Heparin - IVPUSH PRN PRN Heparin Heparin Sodium/Dextrose 25,000 units in 500 mls @ 20 mls/hr 09/07/17 03:15 05:47 Heparin Infusion - IVPB Not Given TITR [facility] Protocol 1,000 UNITS/HR Levofloxacin 250 mg in 50 mls @ 50 mls/hr 09/07/17 22:00 09/08/17 22:13 Levaquin 250 Mg Premixed Ivpb - IVPB 50 mls/hr HS [facility] Administration Protocol Metronidazole 500 mg in 100 mls @ 100 mls/hr 09/07/17 10:00 09/09/17 01:30 Flagyl 500mg Premixed Ivpb - IVPB 100 mls/hr Q8H-IV ANNA Administration Metoprolol Tartrate 5 mg 09/08/17 17:16 09/09/17 05:49 Lopressor Injection - IVPB 5 mg Q6H ANNA Administration Nystatin 1 applic 09/07/17 10:00 09/08/17 09:46 Nystop Powder - TP 1 applic DAILY ANNA Administration Pantoprazole Sodium 40 mg 09/07/17 10:00 09/08/17 09:46 Protonix Iv IVPUSH 40 mg DAILY ANNA Administration Potassium Chloride 20 meq 09/07/17 10:00 09/08/17 09:44 K-Dur - PO Not Given DAILY ANNA No micro CXR 09/06 -Since 08/01/2009, there is a slightly elevated left hemidiaphragm with large heart, sclerotic knob but no sign of an acute chest process. There is no sign of a pneumoperitoneum or gross abdominal distention. Correlation recommended. Ab XR 09/06 - Impression: Small bowel obstruction. Get CT. Ab CT/Pelvis 09/06 - IMPRESSION: 1. 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 2. Cholelithiasis. 3. 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 4. Proximal small bowel distention consistent with a partial SBO. 5. Inflammatory changes about the proximal sigmoid colon consistent with mild acute diverticulitis. 6. Fibroid uterus. Please see above discussion. Renal/Bladder U/s - 09/07 - IMPRESSION: No left hydronephrosis is noted. 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 The kidneys otherwise demonstrate no definite sonographic abnormality. The current urinary bladder volume is approximately 360 mL. The patient was unable to void at this time - ? early/mild urinary retention. Correlate clinically. Close follow-up sonography may be considered. AB XR 5-2 - NG tube in place; no abnormalities noted ECHO 09/08 - EF 60%, normal LV size and function, RV pressure >60, mild MR ASSESSMENT/PLAN: 86 yo F with a PMHx of A-fib, Epilepsy, HTN, diverticulitis, presented to the ED wit vomiting and diarrhea and was found to have SBO & diverticulitis. Doing well, NG tube d/c'ed, advanced to clears, will start on PO meds. GI and Surgery following. #Partial SBO - Imaging confirmed, transition point not identified; NG tube d/c; ed; BMs overnight -Surgery following, plan for conservative management for now -clears diet -GI following -NGT d/c'ed overnight - start PO meds #Diverticulitis - confirmed on CT ab/pelvis - Levaquin/flagyl day 3 -s tarted on clears, advance as tolerated - GI following - f/u c diff studies, stool cultures - still pending - f/u FOBT #A-fib - controlled - trend INR - restart eliquis BID 5mg -d/c hep gtt -lopressor q6h 5mg prn; - lopressor 100mg BID -holding cardizem for now - cardiology consulted #Hypernatremia - Na 149 today - likely volume down; encourage free water intake - trend #Hypokalemia - 3.3 this am - PO KCL, given one dose of kphos in PM - trend, replete as needed #CHF - secondary likely to afib - strict Is and Os - Lasix 60mg IV daily for now; will switcht to PO tomorrow; monitor for hypoK and worsening JAROD - echo results noted above - cardiology consulted #JAROD - 1.2 today, continues improving; baseline 0.8 per PMD; prior hx of AIN -avoid nephrotoxins -restarted aldactone -renally dose all meds - bladder and renal U/S as noted above - if JAROD worsens with lasix, consider decreasing/removing #HLD -c/w home statin #PPx -eliquis #FEN PO hydration Daily lytes Clears Plan discussed with Dr. Tico Arenas, PGY1 Visit type - Emergency Visit Emergency Visit: Yes ED Registration Date: 09/07/17 Care time: The patient presented to the Emergency Department on the above date and was hospitalized for further evaluation of their emergent condition. - New Patient This patient is new to me today: No - Critical Care Critical Care patient: No - Discharge Referral Referred to [facility] No
[2017-09-09 07:46] LABS: BASO % 0.1 % (0-2.0); EOS % 0.8 % (0-4.5); HEMOGLOBIN 12.5 GM/dL (10.7-15.3); MCH 29.5 pg (25.7-33.7); MCHC 32.8 g/dl (32.0-36.0); MEAN CELL VOLUME 89.9 fl (80-96); MEAN PLT VOLUME 8.3 fl (7.5-11.1); MONO % 6.7 % (3.8-10.2); NEUT % 86.4 % (42.8-82.8); PLATELET COUNT 244 K/MM3 (134-434); RBC 4.22 M/mm3 (3.60-5.2); RDW 18.1 % (11.6-15.6); WHITE BLOOD COUNT 11.7 K/mm3 (4.0-10.0)
[2017-09-09 08:52] LABS: ANION GAP 11 (8-16); BLOOD UREA NITROGEN 33 mg/dL (7-18); CALCIUM 8.7 mg/dL (8.5-10.1); CHLORIDE 118 mmol/L (98-107); CO2 20 mmol/L (21-32); CREATININE 1.2 mg/dL (0.55-1.02); GLUCOSE,RANDOM 122 mg/dL (74-106); PHOSPHOROUS 1.7 mg/dL (2.5-4.9); SGPT/ALT 15 U/L (12-78); SODIUM 149 mmol/L (136-145)
[2017-09-09 08:53] LABS: ALK PHOS 82 U/L (45-117); BILIRUBIN,TOTAL 0.5 mg/dL (0.2-1.0); TOT PROT 5.6 g/dl (6.4-8.2)
--- NOTE | 2017-09-09 09:13 | PN ---
Progress Note (short form) - Note Progress Note: 86 yo female admitted with abd distension, n/v, and diarrhea. A CT scan identified SBO and ? diverticulitis. Per RN notes, no acute events over past 24 hours. Yesterday, her NGT was dc'd at 8PM. Doing well. No complaints of n/v or abd distension. Having BMs and today her RN informs me that it's diarrhea. In process of trying to obtain stool sample to send for C/S. Currently, sitting in chair at bedside with daughter present. States she feels fine and doesn't have any abd pain. Denies n/v/f/c, CP or SOB. Last Vital Signs Temp Pulse Resp BP Pulse Ox 98.5 F 104 H 20 132/84 95 09/09/17 06:00 09/09/17 06:00 09/09/17 06:00 09/09/17 06:00 09/08/17 22:00 CBC 09/09/17 06:00 Gen: alert. nad. ABD: Softly distended. NT. + BS in all quadrants. LE: + edema bilat. No calf tenderness bilat Problem List - Problems (1) Partial obstruction of small intestine Assessment/Plan: PSBO resolved Start clear liquid diet and advance as tolerated OOB and ambulate f/u Stool C/S Cont medical management Code(s): K56.600 - PARTIAL INTESTINAL OBSTRUCTION, UNSPECIFIED TO CAUSE
[2017-09-09] MEDS: NAPH,MB-DB/K PH,MBDB POWDER PACKET PO SCH (09:43)
[2017-09-09] MEDS ORDERED: PT OWN MED DRAWER 7, Y5N ONE ×3 (09:55→23:06)
[2017-09-09 09:57] LABS: MAGNESIUM 1.9 mg/dL (1.8-2.4); POTASSIUM 3.3 mmol/L (3.5-5.1); SGOT/AST 22 U/L (15-37)
[2017-09-09] MEDS: ASPIRIN 81 MG CHEWABLE TABLETS PO SCH (10:10)
[2017-09-09] MEDS: POTASSIUM CHLORIDE TABS 20 MEQ TABLET.ER (FP) PO SCH (10:10)
[2017-09-09] MEDS: PANTOPRAZOLE SODIUM 40 MG VIAL IVPUSH SCH (10:10)
[2017-09-09] MEDS: FUROSEMIDE 40 MG/4 ML INJECTABLE VIAL IVPUSH SCH (10:10)
[2017-09-09] MEDS: NYSTATIN POWDER 100,000 UNITS/GM - 15 GM TOPICAL POWDER TP SCH (10:12)
--- NOTE | 2017-09-09 11:59 | PN ---
Progress Note, Physician History of Present Illness: Sitting in chair by the bedside. Comfortable. No acute events overnight. NG tube was removed last evening. The patient reports no nausea, vomiting, or abdominal distention. Had 2 bowel movements since last night. Family at bedside. - Current Medication List Current Medications: Active Medications Aspirin (Asa -) 81 mg PO DAILY [facility] Last Admin: 09/09/17 10:10 Dose: 81 mg Atorvastatin Calcium (Lipitor -) 10 mg PO HS [facility] Last Admin: 09/08/17 22:07 Dose: Not Given Benzocaine/Butamben/Tetracaine HCl (Cetacaine [place] -) 1 spray TP DAILY PRN PRN Reason: throat irritation Last Admin: 09/07/17 11:08 Dose: 1 spray Furosemide (Lasix Injection -) 60 mg IVPUSH DAILY [facility] Last Admin: 09/09/17 10:10 Dose: 60 mg Heparin Sodium (Porcine) (Heparin -) 1,000 unit IVPUSH PRN PRN PRN Reason: Heparin Last Admin: 09/07/17 18:17 Dose: 1,000 unit Heparin Sodium (Porcine) (Heparin -) 5,000 unit IVPUSH PRN PRN PRN Reason: Heparin Heparin Sodium/Dextrose (Heparin Infusion -) 25,000 units in 500 mls @ 20 mls/ hr IVPB TITR ANNA; 1,000 UNITS/HR PRN Reason: Protocol Last Admin: 09/09/17 05:47 Dose: Not Given Levofloxacin (Levaquin 250 Mg Premixed Ivpb -) 250 mg in 50 mls @ 50 mls/hr IVPB HS [facility] PRN Reason: Protocol Last Admin: 09/08/17 22:13 Dose: 50 mls/hr Metronidazole (Flagyl 500mg Premixed Ivpb -) 500 mg in 100 mls @ 100 mls/hr IVPB Q8H-IV [facility] Last Admin: 09/09/17 10:10 Dose: 100 mls/hr Metoprolol Tartrate (Lopressor Injection -) 5 mg IVPB Q6H [facility] Last Admin: 09/09/17 05:49 Dose: 5 mg Nystatin (Nystop Powder -) 1 applic TP DAILY [facility] Last Admin: 09/09/17 10:12 Dose: 1 applic Pantoprazole Sodium (Protonix Iv) 40 mg IVPUSH DAILY [facility] Last Admin: 09/09/17 10:10 Dose: 40 mg Potassium Chloride (K-Dur -) 20 meq PO DAILY ANNA Last Admin: 09/09/17 10:10 Dose: 20 meq - Objective Vital Signs: Vital Signs Temperature 98.5 F 09/09/17 06:00 Pulse Rate 104 H 09/09/17 06:00 Respiratory Rate 20 09/09/17 06:00 Blood Pressure 132/84 09/09/17 06:00 O2 Sat by Pulse Oximetry (%) 95 09/08/17 22:00 Constitutional: Yes: Well Nourished, No Distress, Calm Eyes: Yes: Conjunctiva Clear Gastrointestinal: Yes: Normal Bowel Sounds, Soft Labs: CBC, BMP 09/09/17 06:00 09/09/17 06:00 INR, PTT INR 2.62 (0.82-1.09) H 09/07/17 08:00 Problem List - Problems (1) Partial obstruction of small intestine Code(s): K56.600 - PARTIAL INTESTINAL OBSTRUCTION, UNSPECIFIED TO CAUSE (2) Diverticulitis Code(s): K57.92 - DVTRCLI OF INTEST, PART UNSP, W/O PERF OR ABSCESS W/O BLEED (3) Diverticulitis large intestine Code(s): K57.32 - DVTRCLI OF LG INT W/O PERFORATION OR ABSCESS W/O BLEEDING Assessment/Plan Continue current care. Observe.
[2017-09-09] MEDS ORDERED: POTASSIUM CHLORIDE ORAL LIQUID 20 MEQ/15 ML PO ONE ×2 (14:30→18:00)
--- NOTE | 2017-09-09 15:07 | MSN ---
Progress Note (short form) - Note Progress Note: SUBJECTIVE: NG tube was removed at 8 pm. Overnight, patient had 2 bowel movements. No acute events, vital signs stable. Patient seen and examined at bedside this morning. Complains she is tired. Denies nausea, vomiting, or abdominal pain. Denies chest pain, shortness of breath, palpitations, or fever/chills. Patient would like ice water but denies hunger. OBJECTIVE: Vital Signs Period Temp Pulse Resp BP Sys/Kendall Pulse Ox Last 24 Hr 98.2 F-98.5 F 100-111 20-20 128-137/69-84 95 GENERAL:Elderly woman with slightly labored breathing, awake, alert and orientated HEAD: Normal with no evidence of trauma EYES: Conjuncitiva clear, sclera anicteric NOSE: Nasal septum intact, no erythema MOUTH: Dry mucous membranes, no lesions or plaques NECK: No JVD, supple, no lymphadenopathy or thyromegaly, trachea midline CARDIOVASCULAR: Irregular at 100 bpm, +S1/S2, no murmurs, rubs, or gallops LUNGS: Decreased breath sounds at bases b/l, minimal crackles b/l, no wheezes ABDOMEN: Normoactive bowel sounds, tympanic to percussion, soft, non-tender, no masses, no rebound or guarding EXTREMITIES: 2+ PT pulse b/l, trace edema b/l-left more significant than right; healed scar on right knee NEURO: CN II-XII grossly intact, decreased hearing b/l, normal speech, gait not observed PSYCH: Pleasant, normal mood and affect, cooperative CBC, BMP 09/09/17 06:00 09/09/17 06:00 INR, PTT INR 2.62 (0.82-1.09) H 09/07/17 08:00 IMAGING: EKG (09-06-17): Atrial fibrillation at 86 bpm; Right bundle branch block; T- wave inversions in anteriolateral leads CXR (09-06-17): Elevated left hemidiaphragm; cardiomegaly CT abdomen/pelvis (09-06-17): 1. Small bowel distension suggestive of partial SBO 2. Mild diverticulitis of sigmoid colon 3. Left adrenal myelolipoma 4. cholelithiasis 5. Right UPJ obstruction 6. Fibroid uterus Renal/bladder U/S (09-07-17): Right UPJ obstruction; No left hydronephrosis; 360 ml of retained urine Abd X-Ray (09-08-17): No evidence of intestinal obstruction Echocardiogram (09-08-17): Ejection fraction within normal limits. Increased right ventricular pressure >60 mmHg. Mild mitral regurgitation. Mild tricuspid regurgitation. ASSESSMENT/PLAN: 86 yr old woman with history of afib (s/p [place] with stent placement), seizures (d/ c medication 2013), HTN, and right colon bowel resection (2001 due to recurrent polyp) presented to the ED with 4 days of bilious vomiting and diarrhea and was found to have a partial SBO and mild diverticulitis. #Partial SBO demonstrated on CT abd/pelvis-resolving -Surgery consulted and agree with conservative management, repeat abd x-ray does not demonstrate intestinal obstruction -NGT removed-patient having bowel movements -Trial clear liquid diet -Continue to monitor electrolytes closely and replete hypokalemia #Mild diverticulitis demonstrated on CT abd/pelvis-No perforations or abscesses -Dr. Sarmiento consulted-agree with conservative management -Trial clear liquid diet -Levaquin 250 mg IV QD (renal dosing) and flagyl 500 mg IV Q8H (Day 3) for total of 7 day course #Acute Kidney Injury-improving -Baseline creatinine is 0.8 per PCP office- however patient has history of acute interstitial nephritis (2009-drug rxn to acyclovir) -Creatinine trending down 1.6 at admission; now 1.2 -Consider restarting home med aldactone 25 mg qd -Transition from IV medication to PO medications; resume lasix 80 mg PO QAM and lasix 40 mg PO QHS #Permanent Atrial fibrillation with concomitant CHF-Rate controlled -Complete cardiac history unknown-s/p [place] with stent placement in 2006; diagnosis of pulmonary hypertension -Stop heparin ggt and resume Eliquis 5 mg PO QD -Restart home med: metoprolol tartate 100mg BID -Stop IV lopressor 5 mg Q6H; ventricular rate has been controlled -Hold Cardizem 180 mg qd #Leukocytosis-likely secondary to hemo-concentration -WBC increased from 9.8 to 11.7 -Advanced diet to clear liquids-continue to encourage PO intake of free water #Deconditioning-Difficulty ambulating -Patient uses walker at home but family is concerned that she is not ambulating while in hospital -PT evaluation/recommendation #Hypercholesterolemia -Continue home med- pravastatin 40 mg QD #FEN -Clear liquid diet-advance as tolerated -Hypokalemia-Replete with K-DUR 40 mg QD -Hypophosphatemia-replete phosphorous -Hypernatremia-Na 149; encourage free water intake by mouth #DVT prophylaxis -Patient has hx of PE following knee replacement in 2006 -Resume Eliquis 5 mg po bid #Dispo-Continued to monitor for improvement
--- NOTE | 2017-09-09 15:38 | PN ---
Progress Note (short form) - Note Progress Note: S: 86 year old white female with history of permanent atrial fibrillation, hypertension, hypercholesterolemia, coronary artery disease, status post remote postoperative myocardial infarction, status post PCI, status post pulmonary embolism following surgery. NG tube has been removed and patient was out of bed in a chair. No chest pains, sob, dizziness or lightheadedness. No abdominal pain or discomfort reported. Active Medications Generic Name Dose Route Start Last Admin Trade Name Freq PRN Reason Stop Dose Admin Aspirin 81 mg 09/07/17 10:00 09/09/17 10:10 Asa - PO 81 mg DAILY ANNA Administration Atorvastatin Calcium 10 mg 09/07/17 22:00 09/08/17 22:07 Lipitor - PO Not Given HS ANNA Benzocaine/Butamben/Tetracaine HCl 1 spray 09/07/17 10:15 09/07/17 11:08 Cetacaine [place] - TP 1 spray DAILY PRN Administration throat irritation Furosemide 60 mg 09/08/17 10:00 09/09/17 10:10 Lasix Injection - IVPUSH 60 mg DAILY ANNA Administration Heparin Sodium (Porcine) 1,000 unit 09/07/17 03:12 09/07/17 18:17 Heparin - IVPUSH 1,000 unit PRN PRN Administration Heparin Heparin Sodium (Porcine) 5,000 unit 09/07/17 03:12 Heparin - IVPUSH PRN PRN Heparin Heparin Sodium/Dextrose 25,000 units in 500 mls @ 20 mls/hr 09/07/17 03:15 05:47 Heparin Infusion - IVPB Not Given TITR ANNA Protocol 1,000 UNITS/HR Levofloxacin 250 mg in 50 mls @ 50 mls/hr 09/07/17 22:00 09/08/17 22:13 Levaquin 250 Mg Premixed Ivpb - IVPB 50 mls/hr HS ANNA Administration Protocol Metronidazole 500 mg in 100 mls @ 100 mls/hr 09/07/17 10:00 09/09/17 10:10 Flagyl 500mg Premixed Ivpb - IVPB 100 mls/hr Q8H-IV ANNA Administration Metoprolol Tartrate 5 mg 09/08/17 17:16 09/09/17 05:49 Lopressor Injection - IVPB 5 mg Q6H ANNA Administration Nystatin 1 applic 09/07/17 10:00 09/09/17 10:12 Nystop Powder - TP 1 applic DAILY ANNA Administration Pantoprazole Sodium 40 mg 09/07/17 10:00 09/09/17 10:10 Protonix Iv IVPUSH 40 mg DAILY ANNA Administration Potassium Chloride 20 meq 09/07/17 10:00 09/09/17 10:10 K-Dur - PO 20 meq DAILY ANNA Administration O: 86 year old female was in no acute distress, no pallor, cyanosis, clubbing, or jaundice. Last Vital Signs Temp Pulse Resp BP Pulse Ox 98.5 F 104 H 20 132/84 95 09/09/17 06:00 09/09/17 06:00 09/09/17 06:00 09/09/17 06:00 09/08/17 22:00 Neck: Supple, no JVD, negative HJR, carotids were equal and upstrokes were normal, no thyromegaly appreciated. Heart: PMI was in the 5th intercostal space, no heaves or thrills, S1 and S2 were normal. No murmurs or gallops were appreciated. Lungs: Clear on auscultation bilaterally. Abdomen: Soft, nontender, no hepatosplenomegaly appreciated, and no palpable masses were felt. Extremities: No calf tenderness or dependent edema. Pulses are normal. CBC, BMP 09/09/17 06:00 09/09/17 06:00 Intake & Output 09/06/17 09/07/17 09/08/17 09/09/17 23:59 23:59 23:59 23:59 Intake Total 724 1167 770 Output Total 500 10 Balance 224 1157 770 Weight 195 lb 190 lb 14.4 oz 188 lb 186 lb 4 oz IMPRESSION: 1. CAD, s/p [place], s/p PCI, stable angina pectoris. 2. Permanent atrial fibrillation with period of RVR. 3. Hypertension. 4. Interstinal obstruction, etiology to be determined. 5. Hypokalemia. 6. Hypomagnesemia. 7. Dehydration. RECOMMENDATION: 1. Continue current medications. 2. Correction of magnesium and potassium. 3. Fluid replacement in progress, may temporarily need to increase fluid intake.
[2017-09-09] MEDS ORDERED: METOPROLOL TARTRATE 5 MG/5 ML VIAL IVPB PRN (15:40)
[2017-09-09] MEDS ORDERED: NAPH,MB-DB/K PH,MBDB POWDER PACKET PO ONE (16:00)
--- NOTE | 2017-09-09 18:32 | PN ---
Teaching Attending Note Name of Resident: Balaji Arenas ATTENDING PHYSICIAN STATEMENT I saw and evaluated the patient. I reviewed the resident's note and discussed the case with the resident. I agree with the resident's findings and plan as documented. SUBJECTIVE: OBJECTIVE: Vital Signs Period Temp Pulse Resp BP Sys/Kendall Pulse Ox Last 24 Hr 98.2 F-98.5 F 100-108 20-20 132-137/69-84 95 Laboratory Results - last 24 hr 09/09/17 09/09/17 09/09/17 06:00 06:00 06:00 WBC 11.7 H RBC 4.22 Hgb 12.5 Hct 38.0 MCV 89.9 MCH 29.5 MCHC 32.8 RDW 18.1 H Plt Count 244 MPV 8.3 Neutrophils % 86.4 H Lymphocytes % 6.0 L Monocytes % 6.7 Eosinophils % 0.8 Basophils % 0.1 D PTT (Actin FS) 73.6 H Sodium 149 H Potassium 3.3 L Chloride 118 H Carbon Dioxide 20 L Anion Gap 11 BUN 33 H Creatinine 1.2 H Creat Clearance w eGFR 42.70 Random Glucose 122 H Calcium 8.7 Phosphorus 1.7 L Magnesium 1.9 Total Bilirubin 0.5 AST 22 ALT 15 Alkaline Phosphatase 82 Total Protein 5.6 L Albumin 2.0 L Current Medications Generic Name Dose Route Start Last Admin Trade Name Freq PRN Reason Stop Dose Admin Apixaban 5 mg 09/09/17 22:00 Eliquis - PO BID ANNA Atorvastatin Calcium 10 mg 09/07/17 22:00 09/08/17 22:07 Lipitor - PO Not Given HS ANNA Benzocaine/Butamben/Tetracaine HCl 1 spray 09/07/17 10:15 09/07/17 11:08 Cetacaine [place] - TP 1 spray DAILY PRN Administration throat irritation Furosemide 60 mg 09/08/17 10:00 09/09/17 10:10 Lasix Injection - IVPUSH 60 mg DAILY ANNA Administration Levofloxacin 250 mg in 50 mls @ 50 mls/hr 09/07/17 22:00 09/08/17 22:13 Levaquin 250 Mg Premixed Ivpb - IVPB 50 mls/hr HS ANNA Administration Protocol Metronidazole 500 mg in 100 mls @ 100 mls/hr 09/07/17 10:00 09/09/17 18:00 Flagyl 500mg Premixed Ivpb - IVPB 100 mls/hr Q8H-IV ANNA Administration Metoprolol Tartrate 100 mg 09/09/17 22:00 Lopressor - PO BID ANNA Metoprolol Tartrate 5 mg 09/09/17 15:40 Lopressor Injection - IVPB Q6H PRN TACHYCARDIA Nystatin 1 applic 09/07/17 10:00 09/09/17 10:12 Nystop Powder - TP 1 applic DAILY ANNA Administration Pantoprazole Sodium 40 mg 09/10/17 10:00 Protonix - PO DAILY ANNA Potassium Chloride 20 meq 09/07/17 10:00 09/09/17 10:10 K-Dur - PO 20 meq DAILY ANNA Administration Spironolactone 25 mg 09/10/17 10:00 Aldactone - PO DAILY ANNA ASSESSMENT AND PLAN: This is an 86 year old woman with a history of atrial fib, epilepsy, HTN, diverticulitis who presented to the ED with vomiting and diarrhea. 1. Partial SBO - Resolved - NGT removed - Tolerating clear liquids 2. Acute diverticulitis - Continue Levaquin, Flagyl 3. Hypokalemia - Continue to replete potassium 4. Hypophosphatemia - Supplement phosphorus 5. Hypernatremia - Encourage PO fluids 6. Permanent atrial fibrillation - Lopressor, Eliquis restarted - Cardizem on hold 7. Acute kidney injury on stage 3 CKD - Creatinine improving - Continue to hold Lisinopril - Continue to monitor BUN, creatinine 8. Hyperlipidemia - Resume statin 9. Chronic diastolic heart failure, pulmonary HTN - Continue Lasix, Aldactone 10. HTN - Lopressor, Lasix, Aldactone restarted - Cardizem, Lisinopril on hold 11. Disposition - Physical therapy - May need short term rehab
[2017-09-09] MEDS: ATORVASTATIN CA 10 MG TABLET (FP) PO SCH (23:04)
[2017-09-09] MEDS: METOPROLOL TARTRATE 50 MG TABLET (FP) PO SCH ×2 (23:04→23:08)
[2017-09-09] MEDS: APIXABAN 5 MG TABLET PO SCH (23:45)
--- NOTE | 2017-09-10 06:37 | PN ---
Physical Exam: SUBJECTIVE: Patient seen and examined No overnight events; still on heparin gtt; VSS, afebrile; tolerating PO clears well; diarrhea x3 overnight; Denies f/c/n/v, ANDRES, cp, sob, cough, ab pain, back pain, le edema; Will f/u surgery recs on timing for discharge; may possibly go today OBJECTIVE: Vital Signs Intake & Output 09/07/17 09/08/17 09/09/17 09/10/17 23:59 23:59 23:59 23:59 Intake Total 724 1167 1390 300 Output Total 500 10 10 Balance 224 1157 1380 300 Weight 86.591 kg 85.275 kg 84.482 kg 86.183 kg Period Temp Pulse Resp BP Sys/Kendall Pulse Ox Last 24 Hr 97.8 F-99.9 F 92-114 20-20 98-129/58-70 95-95 GENERAL: Elderly woman, NAD, A&Ox3 HEAD: NCAT EYES: PERRL, extraocular movements intact, sclera anicteric, conjunctiva clear. No ptosis. ENT: Ears normal, nares patent, oropharynx clear without exudates, moist mucous membranes. NECK: Trachea midline, full range of motion, supple. LUNGS: Decreased airflow at bases . Otherwise, Breath sounds equal, clear to auscultation bilaterally, no wheezes, , no accessory muscle use. HEART: RRR, S1, S2 without murmur, rub or gallop. ABDOMEN: less distended today. Soft, nontender, + bowel sounds, no guarding, no rebound, no hepatosplenomegaly, no masses. EXTREMITIES: 2+ pulses, warm, well-perfused. 1+ BL [employer] edema noted to midshank NEUROLOGICAL: Cranial nerves II through XII grossly intact. Normal speech, gait not observed. PSYCH: Normal mood, normal affect. pleasant, interactive Laboratory Results - last 24 hr CBC, BMP 09/09/17 06:00 09/09/17 06:00 09/09/17 09/09/17 09/09/17 06:00 06:00 06:00 WBC 11.7 H RBC 4.22 Hgb 12.5 Hct 38.0 MCV 89.9 MCH 29.5 MCHC 32.8 RDW 18.1 H Plt Count 244 MPV 8.3 Neutrophils % 86.4 H Lymphocytes % 6.0 L Monocytes % 6.7 Eosinophils % 0.8 Basophils % 0.1 D PTT (Actin FS) 73.6 H Sodium 149 H Potassium 3.3 L Chloride 118 H Carbon Dioxide 20 L Anion Gap 11 BUN 33 H Creatinine 1.2 H Creat Clearance w eGFR 42.70 Random Glucose 122 H Calcium 8.7 Phosphorus 1.7 L Magnesium 1.9 Total Bilirubin 0.5 AST 22 ALT 15 Alkaline Phosphatase 82 Total Protein 5.6 L Albumin 2.0 L Active Medications Generic Name Dose Route Start Last Admin Trade Name Freq PRN Reason Stop Dose Admin Apixaban 5 mg 09/09/17 22:00 09/09/17 23:45 Eliquis - PO 5 mg BID ANNA Administration Atorvastatin Calcium 10 mg 09/07/17 22:00 09/09/17 23:04 Lipitor - PO 10 mg HS ANNA Administration Benzocaine/Butamben/Tetracaine HCl 1 spray 09/07/17 10:15 09/07/17 11:08 Cetacaine [place] - TP 1 spray DAILY PRN Administration throat irritation Furosemide 60 mg 09/08/17 10:00 09/09/17 10:10 Lasix Injection - IVPUSH 60 mg DAILY ANNA Administration Levofloxacin 250 mg in 50 mls @ 50 mls/hr 09/07/17 22:00 09/09/17 23:04 Levaquin 250 Mg Premixed Ivpb - IVPB 50 mls/hr HS ANNA Administration Protocol Metronidazole 500 mg in 100 mls @ 100 mls/hr 09/07/17 10:00 09/10/17 02:44 Flagyl 500mg Premixed Ivpb - IVPB 100 mls/hr Q8H-IV ANNA Administration Metoprolol Tartrate 100 mg 09/09/17 22:00 09/09/17 23:08 Lopressor - PO Not Given BID ANNA Metoprolol Tartrate 5 mg 09/09/17 15:40 Lopressor Injection - IVPB Q6H PRN TACHYCARDIA Nystatin 1 applic 09/07/17 10:00 09/09/17 10:12 Nystop Powder - TP 1 applic DAILY ANNA Administration Pantoprazole Sodium 40 mg 09/10/17 10:00 Protonix - PO DAILY ANNA Potassium Chloride 20 meq 09/07/17 10:00 09/09/17 10:10 K-Dur - PO 20 meq DAILY ANNA Administration Spironolactone 25 mg 09/10/17 10:00 Aldactone - PO DAILY ANNA gastroenteritis panel pending CXR 09/06 -Since 08/01/2009, there is a slightly elevated left hemidiaphragm with large heart, sclerotic knob but no sign of an acute chest process. There is no sign of a pneumoperitoneum or gross abdominal distention. Correlation recommended. Ab XR 09/06 - Impression: Small bowel obstruction. Get CT. Ab CT/Pelvis 09/06 - IMPRESSION: 1. 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 2. Cholelithiasis. 3. 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 4. Proximal small bowel distention consistent with a partial SBO. 5. Inflammatory changes about the proximal sigmoid colon consistent with mild acute diverticulitis. 6. Fibroid uterus. Please see above discussion. Renal/Bladder U/s - 09/07 - IMPRESSION: No left hydronephrosis is noted. 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 The kidneys otherwise demonstrate no definite sonographic abnormality. The current urinary bladder volume is approximately 360 mL. The patient was unable to void at this time - ? early/mild urinary retention. Correlate clinically. Close follow-up sonography may be considered. AB XR 5-2 - NG tube in place; no abnormalities noted ECHO 09/08 - EF 60%, normal LV size and function, RV pressure >60, mild MR ASSESSMENT/PLAN: 86 yo F with a PMHx of A-fib, Epilepsy, HTN, diverticulitis, presented to the ED wit vomiting and diarrhea and was found to have SBO & diverticulitis. Doing well, tolerating oral feeds, po meds. GI and Surgery following. recurrent diarrhea with uptrending wbc count. #Partial SBO - Imaging confirmed, transition point not identified; NGT d/c'ed 09/08; resolving -Surgery following, plan for conservative management for now -soft diet -GI following, recs appreciated - PO meds #Diarrhea - 3 bouts of diarrhea overnight; uptrending wbc to 14k this AM - f/u remaining stool studies - c diff negative - possibly secondary to meds - trend wbc, fever #Diverticulitis - confirmed on CT ab/pelvis - Levaquin/flagyl day 4 - GI following - FOBT negative #A-fib - controlled - trend INR - eliquis BID 5mg - lopressor q6h 5mg prn; - lopressor PO 100mg BID - holding cardizem for now; hypotensive overnight - cardiology consulted #Hypernatremia - Na 143 today - encourage free water intake - trend #Hypokalemia - 3.1 this am - repleted this AM - trend, replete as needed #Hypomag/hypophos - repleted IV kphos - repleted IV Mag 2g #CHF - secondary likely to afib - strict Is and Os - Lasix 60mg IV daily - echo results noted above - cardiology consulted #JAROD - 1.5 today; baseline 0.8 per PMD; prior hx of AIN - likely secondary to volume status, encourage PO hydration; consider decreasing diuretics -avoid nephrotoxins -restarted aldactone -renally dose all meds - bladder and renal U/S as noted above - if JAROD worsens with lasix, consider decreasing/removing #HLD -c/w home statin #PPx -eliquis #FEN PO hydration Daily lytes soft diet Plan discussed with Dr. Inna Arenas, PGY1 Visit type - Emergency Visit Emergency Visit: Yes ED Registration Date: 09/07/17 Care time: The patient presented to the Emergency Department on the above date and was hospitalized for further evaluation of their emergent condition. - New Patient This patient is new to me today: No - Critical Care Critical Care patient: No - Discharge Referral Referred to [facility] Med [facility] No
[2017-09-10 08:46] LABS: BASO % 0.2 % (0-2.0); EOS % 1.9 % (0-4.5); HEMATOCRIT 36.7 % (32.4-45.2); HEMOGLOBIN 11.9 GM/dL (10.7-15.3); LYMPH % 6.7 % (8-40); MCHC 32.5 g/dl (32.0-36.0); MEAN CELL VOLUME 89.3 fl (80-96); MEAN PLT VOLUME 8.7 fl (7.5-11.1); MONO % 5.4 % (3.8-10.2); NEUT % 85.8 % (42.8-82.8); PLATELET COUNT 236 K/MM3 (134-434); RBC 4.11 M/mm3 (3.60-5.2)
--- NOTE | 2017-09-10 08:54 | MSN ---
Progress Note (short form) - Note Progress Note: SUBJECTIVE: Overnight, patient had 3 loose bowel movements. Stool was collected and sent for c.diff and cultures. It was also noted that patient had a cough productive of white phlegm with coughing exacerbations overnight, however, patient states she has a chronic cough. No other overnight events. Vital signs stable. Patient seen and examined this morning with her daughter in attendance. Yesterday, she walked with PT. She ambulated with moderate difficultly using a walker due to flexed posture and nervousness but denies shortness of breath. Patient has no complaints this morning. She is tolerating clear liquid diet without nausea, vomiting, or abdominal pain. She denies fever/chills, headache, chest pain, palpitations, abdominal distension, or lower extremity edema. OBJECTIVE: Vital Signs Period Temp Pulse Resp BP Sys/Kendall Pulse Ox Last 24 Hr 97.8 F-99.9 F 92-114 20-20 98-129/58-70 95-95 GENERAL:Elderly woman with slightly labored breathing, awake, alert and orientated HEAD: Normal with no evidence of trauma EYES: Conjuncitiva clear, sclera anicteric, extra-ocular muscles intact NOSE: Nasal septum intact, no erythema MOUTH: Dry mucous membranes, yellow discoloration of tongue, no lesions or plaques, uvula midline NECK: No jugular venous distention, supple, no lymphadenopathy or thyromegaly, trachea midline CARDIOVASCULAR: Irregular at 100 bpm, +S1/S2, no murmurs, rubs, or gallops LUNGS: Decreased breath sounds at bases b/l, minimal crackles b/l, no wheezes ABDOMEN: Normoactive bowel sounds, tympanic to percussion, soft, non-tender, no masses, no rebound or guarding EXTREMITIES: 2+ PT pulse b/l, trace edema b/l-left more significant than right; healed scar on right knee NEURO: CN II-XII grossly intact, decreased hearing b/l, normal speech, cautious gait with significant lumbar flexion with use of walker PSYCH: Pleasant, normal mood and affect, cooperative CBC, BMP 09/10/17 08:10 INR, PTT INR 2.62 (0.82-1.09) H 09/07/17 08:00 Current Medications Generic Name Dose Route Start Last Admin Trade Name Freq PRN Reason Stop Dose Admin Apixaban 5 mg 09/09/17 22:00 09/09/17 23:45 Eliquis - PO 5 mg BID ANNA Administration Atorvastatin Calcium 10 mg 09/07/17 22:00 09/09/17 23:04 Lipitor - PO 10 mg HS ANNA Administration Benzocaine/Butamben/Tetracaine HCl 1 spray 09/07/17 10:15 09/07/17 11:08 Cetacaine [place] - TP 1 spray DAILY PRN Administration throat irritation Furosemide 60 mg 09/08/17 10:00 09/09/17 10:10 Lasix Injection - IVPUSH 60 mg DAILY ANNA Administration Levofloxacin 250 mg in 50 mls @ 50 mls/hr 09/07/17 22:00 09/09/17 23:04 Levaquin 250 Mg Premixed Ivpb - IVPB 50 mls/hr HS ANNA Administration Protocol Metronidazole 500 mg in 100 mls @ 100 mls/hr 09/07/17 10:00 09/10/17 02:44 Flagyl 500mg Premixed Ivpb - IVPB 100 mls/hr Q8H-IV ANNA Administration Metoprolol Tartrate 100 mg 09/09/17 22:00 09/09/17 23:08 Lopressor - PO Not Given BID ANNA Metoprolol Tartrate 5 mg 09/09/17 15:40 Lopressor Injection - IVPB Q6H PRN TACHYCARDIA Nystatin 1 applic 09/07/17 10:00 09/09/17 10:12 Nystop Powder - TP 1 applic DAILY ANNA Administration Pantoprazole Sodium 40 mg 09/10/17 10:00 Protonix - PO DAILY ANNA Potassium Chloride 20 meq 09/07/17 10:00 09/09/17 10:10 K-Dur - PO 20 meq DAILY ANNA Administration Spironolactone 25 mg 09/10/17 10:00 Aldactone - PO DAILY ANNA IMAGING: EKG (09-06-17): Atrial fibrillation at 86 bpm; Right bundle branch block; T- wave inversions in anteriolateral leads CXR (09-06-17): Elevated left hemidiaphragm; cardiomegaly CT abdomen/pelvis (09-06-17): 1. Small bowel distension suggestive of partial SBO 2. Mild diverticulitis of sigmoid colon 3. Left adrenal myelolipoma 4. cholelithiasis 5. Right UPJ obstruction 6. Fibroid uterus Renal/bladder U/S (09-07-17): Right UPJ obstruction; No left hydronephrosis; 360 ml of retained urine Abd X-Ray (09-08-17): No evidence of intestinal obstruction Echocardiogram (09-08-17): Ejection fraction within normal limits. Increased right ventricular pressure >60 mmHg. Mild mitral regurgitation. Mild tricuspid regurgitation. ASSESSMENT/PLAN: 86 yr old woman with history of afib (s/p WI with stent placement), seizures (d/ c medication 2013), HTN, and right colon bowel resection (2001 due to recurrent polyp) presented to the ED with 4 days of bilious vomiting and diarrhea and was found to have a partial SBO and mild diverticulitis. #Partial SBO demonstrated on CT abd/pelvis-resolved -Surgery consulted and conservative non-operative management instituted; patient s/p NGT removal (09-08) -Tolerating clear liquid diet w/o nausea/vomiting- advance diet to soft foods -Continue to monitor electrolytes closely and replete as necessary #Mild diverticulitis demonstrated on CT abd/pelvis-No perforations or abscesses -Dr. Sarmiento consulted-agree with conservative management -Levaquin 250 mg IV QD (renal dosing) and flagyl 500 mg IV Q8H (Day 4) for total of 7 day course -C.diff and stool cultures collected this AM -Advanced diet to soft foods #Leukocytosis-maybe 2/2 to GI source (?) -WBC trending up from 9.8>11.7>14 -C. diff and stool cultures collected -UA ordered -Consider respiratory cause #Acute Kidney Injury-Unchanged after interim improvement -Baseline creatinine is 0.8 per PCP office- however patient has history of acute interstitial nephritis (2009-drug rxn to acyclovir) -Creatinine 1.6 at admission; now 1.5 -Renal consulted as renal function unchanged from admission -Renal U/S-no evidence of hydronephritis -Home med-Aldactone 25 mg PO QD restarted -Transition from IV medication to PO medications; resume lasix 80 mg PO QAM and lasix 40 mg PO QHS -Consider decreasing lasix dose #Permanent Atrial fibrillation-Ventricular rate controlled -Complete cardiac history unknown-s/p WI with stent placement in 2006; diagnosis of pulmonary hypertension -Stop heparin ggt and resume Eliquis 2.5 mg PO BID (renally dosed) -Restart home med: metoprolol tartate 100mg BID -Stop IV lopressor 5 mg Q6H; ventricular rate has been controlled -Hold Cardizem 180 mg qd as lower blood pressure readings recorded () #Deconditioning-Difficulty ambulating -Patient uses walker at home but family is concerned that she is not ambulating while in hospital -Continued PT #Hypercholesterolemia -Continue home med- pravastatin 40 mg QD #FEN -Soft diet-advance as tolerated -Hypokalemia-Replete with IV potassium phosphate -Hypophosphatemia-replete phosphorous -Hypomagnesemia-Replete with magnesium sulfate 2 gm IV -Hypernatremia-Resolved (Na+ 143)- Allow free water intake #DVT prophylaxis -Patient has hx of PE following knee replacement in 2006 -Resume Eliquis 2.5 mg po bid (renal dosing) #Dispo-Consider discharge home with VNS if able to tolerate diet
[2017-09-10 09:20] LABS: ALK PHOS 75 U/L (45-117); ANION GAP 10 (8-16); BILIRUBIN,TOTAL 0.5 mg/dL (0.2-1.0); BLOOD UREA NITROGEN 34 mg/dL (7-18); CALCIUM 8.2 mg/dL (8.5-10.1); CHLORIDE 113 mmol/L (98-107); CO2 20 mmol/L (21-32); CREATININE 1.5 mg/dL (0.55-1.02); GLUCOSE,RANDOM 116 mg/dL (74-106); MAGNESIUM 1.6 mg/dL (1.8-2.4); PHOSPHOROUS 1.8 mg/dL (2.5-4.9); POTASSIUM 3.1 mmol/L (3.5-5.1); SGOT/AST 14 U/L (15-37); SGPT/ALT 13 U/L (12-78); SODIUM 143 mmol/L (136-145); TOT PROT 5.4 g/dl (6.4-8.2)
[2017-09-10] MEDS ORDERED: PT OWN MED DRAWER 7, Y5N ONE ×2 (09:48→21:40)
[2017-09-10] MEDS: APIXABAN 5 MG TABLET PO SCH (09:51)
[2017-09-10] MEDS: METOPROLOL TARTRATE 50 MG TABLET (FP) PO SCH ×2 (09:51→21:54)
[2017-09-10] MEDS: PANTOPRAZOLE 40 MG TABLET (FP) PO SCH (09:51)
[2017-09-10] MEDS: SPIRONOLACTONE 25 MG TABLET (FP) PO SCH (09:51)
[2017-09-10] MEDS: POTASSIUM CHLORIDE TABS 20 MEQ TABLET.ER (FP) PO SCH (09:51)
[2017-09-10] MEDS: FUROSEMIDE 40 MG/4 ML INJECTABLE VIAL IVPUSH SCH (09:52)
[2017-09-10] MEDS: NYSTATIN POWDER 100,000 UNITS/GM - 15 GM TOPICAL POWDER TP SCH (09:53)
[2017-09-10] MEDS ORDERED: MAGNESIUM SULF 50% (8.12 MEQ/2 ML-1 GM VIAL) IVPB ONE (10:14)
[2017-09-10] MEDS ORDERED: NAPH,MB-DB/K PH,MBDB POWDER PACKET PO SCH (10:15)
[2017-09-10] MEDS ORDERED: MAGNESIUM SULFATE IN WATER 2 GM/50 ML IVPB IVPB ONE (10:45)
[2017-09-10] MEDS ORDERED: POTASSIUM PHOSPHATE 30 MM in DEXTROSE 5%-WATER - 500 ML IVPB ONE (11:00)
--- NOTE | 2017-09-10 15:33 | CONSULT ---
Consult Consult Specialty:: Nephrology Reason for Consultation:: JAROD - History of Present Illness Chief Complaint: vomiting and diarrhea History of Present Illness: Pt is an 86 year old female with pmhx of a-fib, CHF, JAROD, and epilepsy who presents to the ER initially for abdominal discomfort and vomiting. She was found to have a partial SBO. Pts creatinine was elevated on admission and did not improved. I was called to evaluate her for elevated creatinine. She has a baseline creatinine of about 0.8. She denies dysuria or hematuria. She had JAROD in the past that was caused by acyclovir. She does not follow with a agriculture inspector and does not remember who she saw in the hospital at the time. She denies shortness of breath. She does not have much appetite. - History Source History Provided By: Patient, Family Member - Past Medical History Cardio/Vascular: Yes: CHF, HTN, Hyperlipdemia Renal/: Yes: Other (jarod in the past) - Alcohol/Substance Use Hx Alcohol Use: No - Smoking History Smoking history: Unknown if ever smoked Home Medications - Allergies Allergies/Adverse Reactions: Allergies Allergy/AdvReac Type Severity Reaction Status Date / Time No Known Allergies Allergy Verified 09/06/17 19:09 - Home Medications Home Medications: Ambulatory Orders Aspirin 81 mg PO DAILY 09/06/17 Diltiazem Cd [Cardizem Cd -] 180 mg PO DAILY 09/06/17 Furosemide [Lasix -] 40 mg PO HS 09/06/17 Furosemide [Lasix -] 80 mg PO AM 09/06/17 Metoprolol Succinate [Toprol Xl -] 100 mg PO BID 09/06/17 Potassium Chloride [K-Dur -] 20 meq PO DAILY 09/06/17 Pravastatin Sodium [Pravachol] 40 mg PO DAILY 09/06/17 Spironolactone [Aldactone] 25 mg PO DAILY 09/06/17 Apixaban [Eliquis] 5 mg PO BID 09/07/17 Family Disease History - Family Disease History Family History: Denies Review of Systems - Review of Systems Constitutional: reports: No Symptoms Eyes: reports: No Symptoms HENT: reports: No Symptoms Neck: reports: No Symptoms Cardiovascular: reports: Shortness of Breath Respiratory: reports: SOB on Exertion Gastrointestinal: reports: No Symptoms Genitourinary: reports: No Symptoms Musculoskeletal: reports: No Symptoms Integumentary: reports: No Symptoms Neurological: reports: No Symptoms Endocrine: reports: No Symptoms Hematology/Lymphatic: reports: No Symptoms Physical Exam Vital Signs: Vital Signs Temperature 97.8 F 09/10/17 06:00 Pulse Rate 96 H 09/10/17 10:00 Respiratory Rate 20 09/10/17 10:00 Blood Pressure 116/54 09/10/17 10:00 O2 Sat by Pulse Oximetry (%) 95 09/09/17 21:00 Constitutional: Yes: Calm Eyes: Yes: Conjunctiva Clear HENT: Yes: Atraumatic Neck: Yes: Supple Cardiovascular: Yes: S1, S2 Respiratory: Yes: CTA Bilaterally Gastrointestinal: Yes: Normal Bowel Sounds, Soft Renal/: Yes: WNL Musculoskeletal: Yes: WNL Edema: Yes Edema: LLE: Trace, RLE: Trace Neurological: Yes: Oriented Psychiatric: Yes: Oriented Labs: CBC, BMP 09/10/17 08:10 09/10/17 08:10 Laboratory Tests 09/06/17 09/07/17 09/07/17 19:20 07:05 15:20 WBC Hgb Hct Sodium Potassium Chloride Carbon Dioxide Creatinine 1.6 H 1.4 H 1.3 H Ur Random Sodium 09/07/17 09/08/17 09/09/17 18:00 06:40 06:00 WBC Hgb Hct Sodium 149 H Potassium 3.3 L Chloride Carbon Dioxide Creatinine 1.3 H 1.2 H Ur Random Sodium 9 09/10/17 09/10/17 08:10 08:10 WBC 14.0 H Hgb 11.9 Hct 36.7 Sodium 143 Potassium 3.1 L Chloride 113 H Carbon Dioxide 20 L Creatinine 1.5 H Ur Random Sodium Imaging - Results Chest X-ray: Report Reviewed Ultrasound: Report Reviewed Problem List - Problems (1) JAROD (acute kidney injury) Code(s): N17.9 - ACUTE KIDNEY FAILURE, UNSPECIFIED (2) Diverticulitis Code(s): K57.92 - DVTRCLI OF INTEST, PART UNSP, W/O PERF OR ABSCESS W/O BLEED (3) Partial obstruction of small intestine Code(s): K56.600 - PARTIAL INTESTINAL OBSTRUCTION, UNSPECIFIED TO CAUSE Assessment/Plan Current Medications Generic Name Dose Route Start Last Admin Trade Name Freq PRN Reason Stop Dose Admin Apixaban 2.5 mg 09/10/17 10:21 Eliquis - PO BID ANNA Atorvastatin Calcium 10 mg 09/07/17 22:00 09/09/17 23:04 Lipitor - PO 10 mg HS ANNA Administration Benzocaine/Butamben/Tetracaine HCl 1 spray 09/07/17 10:15 09/07/17 11:08 Cetacaine [place] - TP 1 spray DAILY PRN Administration throat irritation Furosemide 60 mg 09/08/17 10:00 09/10/17 09:52 Lasix Injection - IVPUSH 60 mg DAILY ANNA Administration Levofloxacin 250 mg in 50 mls @ 50 mls/hr 09/07/17 22:00 09/09/17 23:04 Levaquin 250 Mg Premixed Ivpb - IVPB 50 mls/hr HS ANNA Administration Protocol Metronidazole 500 mg in 100 mls @ 100 mls/hr 09/07/17 10:00 09/10/17 09:52 Flagyl 500mg Premixed Ivpb - IVPB 100 mls/hr Q8H-IV ANNA Administration Potassium Phosphate 30 mm/ 510 mls @ 62.5 mls/hr 09/10/17 11:00 09/10/17 12: 47 Dextrose IVPB 09/10/17 19:09 62.5 mls/hr ONCE ONE Administration Metoprolol Tartrate 100 mg 09/09/17 22:00 09/10/17 09:51 Lopressor - PO 100 mg BID ANNA Administration Metoprolol Tartrate 5 mg 09/09/17 15:40 Lopressor Injection - IVPB Q6H PRN TACHYCARDIA Nystatin 1 applic 09/07/17 10:00 09/10/17 09:53 Nystop Powder - TP 1 applic DAILY ANNA Administration Pantoprazole Sodium 40 mg 09/10/17 10:00 09/10/17 09:51 Protonix - PO 40 mg DAILY ANNA Administration Potassium Chloride 20 meq 09/07/17 10:00 09/10/17 09:51 K-Dur - PO 20 meq DAILY ANNA Administration Spironolactone 25 mg 09/10/17 10:00 09/10/17 09:51 Aldactone - PO 25 mg DAILY ANNA Administration Impression 1. JAROD 2. a-fib 3. CHF 4. pulm HTN 5. CAD 6. partial sbo Plan - consider holding/decreasing diuretics as she had partial SBO and is not eating much - urine sodium is low which is consistent with pre-renal disease - pt is not grossly fluid overloaded - cardiology input appreciated - repeat labs in am - replace lytes - check cxr - follow urine lytes - pt was hypotensive on admission and is hypotensive now - echo reviewed
--- NOTE | 2017-09-10 15:54 | PN ---
Teaching Attending Note Name of Resident: Balaji Arenas ATTENDING PHYSICIAN STATEMENT I saw and evaluated the patient. I reviewed the resident's note and discussed the case with the resident. I agree with the resident's findings and plan as documented. SUBJECTIVE: Patient has no new complains, no shortness of breath, no nausea or vomiting, daughter at bedside. OBJECTIVE: Vital Signs Temperature 97.9 F 09/10/17 15:35 Pulse Rate 90 09/10/17 15:35 Respiratory Rate 20 09/10/17 15:35 Blood Pressure 97/57 09/10/17 15:35 O2 Sat by Pulse Oximetry (%) 95 09/09/17 21:00 GENERAL: Elderly woman, pleasant, NAD HEAD: NCAT EYES: PERRL, extraocular movements intact, sclera anicteric, conjunctiva clear. ENT: Ears normal, oropharynx clear without exudates, moist mucous membranes. NECK: Trachea midline, full range of motion, supple. LUNGS: Trace crackles at bases. Otherwise, Breath sounds equal, clear to auscultation bilaterally, no wheezes, , no accessory muscle use. HEART: IR-Irregular , S1, S2 without murmur, rub or gallop. ABDOMEN: Distended. Soft, nontender, normoactive bowel sounds, no guarding, no rebound, no hepatosplenomegaly, no masses. EXTREMITIES: 2+ pulses, warm, well-perfused. 1+ BL pitting edema to knees. NEUROLOGICAL: Cranial nerves II through XII grossly intact. Normal speech, gait not observed. PSYCH: Normal mood, normal affect. pleasant, interactive CBCD WBC 14.0 K/mm3 (4.0-10.0) H 09/10/17 08:10 RBC 4.11 M/mm3 (3.60-5.2) 09/10/17 08:10 Hgb 11.9 GM/dL (10.7-15.3) 09/10/17 08:10 Hct 36.7 % (32.4-45.2) 09/10/17 08:10 MCV 89.3 fl (80-96) 09/10/17 08:10 MCHC 32.5 g/dl (32.0-36.0) 09/10/17 08:10 RDW 18.0 % (11.6-15.6) H 05/04/18 08:10 Plt Count 236 K/MM3 (134-434) 09/10/17 08:10 MPV 8.7 fl (7.5-11.1) 09/10/17 08:10 CMP Sodium 143 mmol/L (136-145) 09/10/17 08:10 Potassium 3.1 mmol/L (3.5-5.1) L 09/10/17 08:10 Chloride 113 mmol/L (98-107) H 09/10/17 08:10 Carbon Dioxide 20 mmol/L (21-32) L 09/10/17 08:10 Anion Gap 10 (8-16) 09/10/17 08:10 BUN 34 mg/dL (7-18) H 09/10/17 08:10 Creatinine 1.5 mg/dL (0.55-1.02) H 09/10/17 08:10 Creat Clearance w eGFR 33.00 (>60) 09/10/17 08:10 Random Glucose 116 mg/dL (74-106) H 09/10/17 08:10 Calcium 8.2 mg/dL (8.5-10.1) L 09/10/17 08:10 Total Bilirubin 0.5 mg/dL (0.2-1.0) 09/10/17 08:10 AST 14 U/L (15-37) L 09/10/17 08:10 ALT 13 U/L (12-78) 09/10/17 08:10 Alkaline Phosphatase 75 U/L (45-117) 09/10/17 08:10 Total Protein 5.4 g/dl (6.4-8.2) L 09/10/17 08:10 Albumin 2.0 g/dl (3.4-5.0) L 09/10/17 08:10 CARDIAC ENZYMES Creatine Kinase 23 IU/L (26-192) L 09/06/17 19:41 Troponin I < 0.02 ng/ml (0.00-0.05) 09/06/17 19:41 Current Medications Generic Name Dose Route Start Last Admin Trade Name Freq PRN Reason Stop Dose Admin Apixaban 2.5 mg 09/10/17 10:21 Eliquis - PO BID ANNA Atorvastatin Calcium 10 mg 09/07/17 22:00 09/09/17 23:04 Lipitor - PO 10 mg HS ANNA Administration Benzocaine/Butamben/Tetracaine HCl 1 spray 09/07/17 10:15 09/07/17 11:08 Cetacaine [place] - TP 1 spray DAILY PRN Administration throat irritation Furosemide 60 mg 09/08/17 10:00 09/10/17 09:52 Lasix Injection - IVPUSH 60 mg DAILY ANNA Administration Levofloxacin 250 mg in 50 mls @ 50 mls/hr 09/07/17 22:00 09/09/17 23:04 Levaquin 250 Mg Premixed Ivpb - IVPB 50 mls/hr HS ANNA Administration Protocol Metronidazole 500 mg in 100 mls @ 100 mls/hr 09/07/17 10:00 09/10/17 09:52 Flagyl 500mg Premixed Ivpb - IVPB 100 mls/hr Q8H-IV ANNA Administration Potassium Phosphate 30 mm/ 510 mls @ 62.5 mls/hr 09/10/17 11:00 09/10/17 12: 47 Dextrose IVPB 09/10/17 19:09 62.5 mls/hr ONCE ONE Administration Metoprolol Tartrate 100 mg 09/09/17 22:00 09/10/17 09:51 Lopressor - PO 100 mg BID ANNA Administration Metoprolol Tartrate 5 mg 09/09/17 15:40 Lopressor Injection - IVPB Q6H PRN TACHYCARDIA Nystatin 1 applic 09/07/17 10:00 09/10/17 09:53 Nystop Powder - TP 1 applic DAILY ANNA Administration Pantoprazole Sodium 40 mg 09/10/17 10:00 09/10/17 09:51 Protonix - PO 40 mg DAILY ANNA Administration Potassium Chloride 20 meq 09/07/17 10:00 09/10/17 09:51 K-Dur - PO 20 meq DAILY ANNA Administration Spironolactone 25 mg 09/10/17 10:00 09/10/17 09:51 Aldactone - PO 25 mg DAILY ANNA Administration Home Medications Medication Instructions Recorded Aspirin 81 mg PO DAILY 09/06/17 Diltiazem Cd [Cardizem Cd -] 180 mg PO DAILY 09/06/17 Furosemide [Lasix -] 40 mg PO HS 09/06/17 Furosemide [Lasix -] 80 mg PO AM 09/06/17 Metoprolol Succinate [Toprol Xl -] 100 mg PO BID 04/30/18 Potassium Chloride [K-Dur -] 20 meq PO DAILY 09/06/17 Pravastatin Sodium [Pravachol] 40 mg PO DAILY 09/06/17 Spironolactone [Aldactone] 25 mg PO DAILY 09/06/17 Apixaban [Eliquis] 5 mg PO BID 09/07/17 ASSESSMENT AND PLAN: This is an 86 year old woman with a history of atrial fib, epilepsy, HTN, diverticulitis who presented to the ED with vomiting and diarrhea. # Partial SBO resolved, s/p NGT ,tolerating clear liquids # Acute diverticulitis on Levaquin, Flagyl continue with mild elevation of WBC will trend. # Electrolytes imbalance being repleted # Hypernatremia improved on PO fluids continue # Permanent atrial fibrillation on Lopressor, Eliquis , rate is controlled Cardizem on hold due to low BP # Acute kidney injury on stage 3 CKD creatinine is 1.5 today continue to hold Lisinopril, continue to monitor BUN, creatinine will monitor # Hyperlipidemia continue statin # Chronic diastolic heart failure, pulmonary HTN, continue Lasix, Aldactone #. HTN on Lopressor, Lasix, Aldactone ,off Cardizem and Lisinopril DvT Px: Eliquis Physical therapy, May need short term rehab
--- NOTE | 2017-09-10 17:31 | PN ---
Progress Note (short form) - Note Progress Note: S: 86 year old white female with history of permanent atrial fibrillation, hypertension, hypercholesterolemia, coronary artery disease, status post remote postoperative myocardial infarction, status post PCI, status post pulmonary embolism following surgery. Patient switched to solid food, had episoge of diarrhea. No chest pains, sob, dizziness or lightheadedness. No abdominal pain or discomfort reported. Active Medications Apixaban (Eliquis -) 2.5 mg PO BID [facility] Atorvastatin Calcium (Lipitor -) 10 mg PO [facility] Last Admin: 09/09/17 23:04 Dose: 10 mg Benzocaine/Butamben/Tetracaine HCl (Cetacaine [place] -) 1 spray TP DAILY PRN PRN Reason: throat irritation Last Admin: 09/07/17 11:08 Dose: 1 spray Furosemide (Lasix Injection -) 60 mg IVPUSH DAILY [facility] Last Admin: 09/10/17 09:52 Dose: 60 mg Levofloxacin (Levaquin 250 Mg Premixed Ivpb -) 250 mg in 50 mls @ 50 mls/hr IVPB [facility] PRN Reason: Protocol Last Admin: 09/09/17 23:04 Dose: 50 mls/hr Metronidazole (Flagyl 500mg Premixed Ivpb -) 500 mg in 100 mls @ 100 mls/hr IVPB Q8H-IV [facility] Last Admin: 09/10/17 17:17 Dose: 100 mls/hr Potassium Phosphate 30 mm/ (Dextrose) 510 mls @ 62.5 mls/hr IVPB ONCE ONE Stop: 09/10/17 19:09 Last Admin: 09/10/17 12:47 Dose: 62.5 mls/hr Metoprolol Tartrate (Lopressor -) 100 mg PO BID [facility] Last Admin: 09/10/17 09:51 Dose: 100 mg Metoprolol Tartrate (Lopressor Injection -) 5 mg IVPB Q6H PRN PRN Reason: TACHYCARDIA Nystatin (Nystop Powder -) 1 applic TP DAILY [facility] Last Admin: 09/10/17 09:53 Dose: 1 applic Pantoprazole Sodium (Protonix -) 40 mg PO DAILY [facility] Last Admin: 09/10/17 09:51 Dose: 40 mg Potassium Chloride (K-Dur -) 20 meq PO DAILY [facility] Last Admin: 09/10/17 09:51 Dose: 20 meq Spironolactone (Aldactone -) 25 mg PO DAILY [facility] Last Admin: 09/10/17 09:51 Dose: 25 mg O: 86 year old female was in no acute distress, no pallor, cyanosis, clubbing, or jaundice. Last Vital Signs Temp Pulse Resp BP Pulse Ox 97.9 F 90 20 97/57 95 09/10/17 15:35 09/10/17 15:35 09/10/17 15:35 09/10/17 15:35 09/09/17 21:00 Intake & Output 09/07/17 09/08/17 09/09/17 09/10/17 23:59 23:59 23:59 23:59 Intake Total 724 1167 1390 500 Output Total 500 10 10 Balance 224 1157 1380 500 Weight 190 lb 14.4 oz 188 lb 186 lb 4 oz 190 lb Neck: Supple, no JVD, negative HJR, carotids were equal and upstrokes were normal, no thyromegaly appreciated. Heart: PMI was in the 5th intercostal space, no heaves or thrills, S1 variable, S2 were normal. No murmurs or gallops were appreciated. Lungs: Clear on auscultation bilaterally. Abdomen: Soft, nontender, distended no hepatosplenomegaly appreciated, and no palpable masses were felt. Extremities: No calf tenderness or dependent edema. Pulses are normal. CBC, BMP 09/10/17 08:10 09/10/17 08:10 IMPRESSION: 1. CAD, s/p AL, s/p PCI, stable angina pectoris. 2. Permanent atrial fibrillation with period of RVR. 3. Hypertension. 4. Interstinal obstruction, etiology to be determined. 5. Hypokalemia. 6. Hypomagnesemia. 7. Dehydration. 8. acute kidney injury. RECOMMENDATION: 1. Continue current medications. 2. Correction of magnesium and potassium. 3. Fluid replacement in progress. 4. F/u Mg. and K+ levels.
[2017-09-10] MEDS: ATORVASTATIN CA 10 MG TABLET (FP) PO SCH (21:53)
[2017-09-10] MEDS: APIXABAN 2.5 MG TABLET PO SCH (21:54)
[2017-09-11 08:25] LABS: BASO % 0.2 % (0-2.0); EOS % 1.9 % (0-4.5); HEMATOCRIT 36.8 % (32.4-45.2); HEMOGLOBIN 12.2 GM/dL (10.7-15.3); LYMPH % 7.6 % (8-40); MCH 29.5 pg (25.7-33.7); MCHC 33.3 g/dl (32.0-36.0); MEAN CELL VOLUME 88.7 fl (80-96); MEAN PLT VOLUME 8.3 fl (7.5-11.1); MONO % 4.7 % (3.8-10.2); NEUT % 85.6 % (42.8-82.8); PLATELET COUNT 242 K/MM3 (134-434); RBC 4.14 M/mm3 (3.60-5.2); RDW 17.5 % (11.6-15.6); WHITE BLOOD COUNT 13.4 K/mm3 (4.0-10.0)
[2017-09-11] MEDS ORDERED: FUROSEMIDE 40 MG/4 ML INJECTABLE VIAL IVPUSH SCH (08:45)
--- NOTE | 2017-09-11 08:46 | PN ---
Progress Note (short form) - Note Progress Note: Patient is feeling better , no acute distress, denies any pain or discomfort. daughter at bedside. Vital Signs Temperature 97.6 F 09/11/17 06:00 Pulse Rate 92 H 09/11/17 06:00 Respiratory Rate 20 09/11/17 06:00 Blood Pressure 101/64 09/11/17 06:00 O2 Sat by Pulse Oximetry (%) 95 09/10/17 22:00 GENERAL: Elderly woman, NAD HEAD: NCAT EYES: PERRL, extraocular movements intact, sclera anicteric, conjunctiva clear. ENT: Ears normal, oropharynx clear without exudates, moist mucous membranes. NECK: Trachea midline, full range of motion, supple. LUNGS: Trace crackles at bases. Otherwise, Breath sounds equal, clear to auscultation bilaterally, no wheezes, , no accessory muscle use. HEART: IR-Irregular , S1, S2 without murmur, rub or gallop. ABDOMEN: mild distention, Soft, nontender, normoactive bowel sounds, no guarding , no rebound, no hepatosplenomegaly, no masses. EXTREMITIES: 2+ pulses, warm, well-perfused. trace BL pitting edema . NEUROLOGICAL: Cranial nerves II through XII grossly intact. Normal speech, gait not observed. PSYCH: Normal mood, normal affect. pleasant, interactive CBCD WBC 13.4 K/mm3 (4.0-10.0) H 09/11/17 07:00 RBC 4.14 M/mm3 (3.60-5.2) 09/11/17 07:00 Hgb 12.2 GM/dL (10.7-15.3) 09/11/17 07:00 Hct 36.8 % (32.4-45.2) 09/11/17 07:00 MCV 88.7 fl (80-96) 09/11/17 07:00 MCHC 33.3 g/dl (32.0-36.0) 09/11/17 07:00 RDW 17.5 % (11.6-15.6) H 09/11/17 07:00 Plt Count 242 K/MM3 (134-434) 09/11/17 07:00 MPV 8.3 fl (7.5-11.1) 09/11/17 07:00 CMP Sodium 143 mmol/L (136-145) 09/10/17 08:10 Potassium 3.1 mmol/L (3.5-5.1) L 09/10/17 08:10 Chloride 113 mmol/L (98-107) H 09/10/17 08:10 Carbon Dioxide 20 mmol/L (21-32) L 09/10/17 08:10 Anion Gap 10 (8-16) 09/10/17 08:10 BUN 34 mg/dL (7-18) H 09/10/17 08:10 Creatinine 1.5 mg/dL (0.55-1.02) H 09/10/17 08:10 Creat Clearance w eGFR 33.00 (>60) 09/10/17 08:10 Random Glucose 116 mg/dL (74-106) H 09/10/17 08:10 Calcium 8.2 mg/dL (8.5-10.1) L 09/10/17 08:10 Total Bilirubin 0.5 mg/dL (0.2-1.0) 09/10/17 08:10 AST 14 U/L (15-37) L 09/10/17 08:10 ALT 13 U/L (12-78) 09/10/17 08:10 Alkaline Phosphatase 75 U/L (45-117) 09/10/17 08:10 Total Protein 5.4 g/dl (6.4-8.2) L 09/10/17 08:10 Albumin 2.0 g/dl (3.4-5.0) L 09/10/17 08:10 CARDIAC ENZYMES Creatine Kinase 23 IU/L (26-192) L 09/06/17 19:41 Troponin I < 0.02 ng/ml (0.00-0.05) 09/06/17 19:41 Current Medications Generic Name Dose Route Start Last Admin Trade Name Freq PRN Reason Stop Dose Admin Apixaban 2.5 mg 09/10/17 10:21 09/10/17 21:54 Eliquis - PO 2.5 mg BID ANNA Administration Atorvastatin Calcium 10 mg 09/07/17 22:00 09/10/17 21:53 Lipitor - PO 10 mg HS ANNA Administration Benzocaine/Butamben/Tetracaine HCl 1 spray 09/07/17 10:15 09/07/17 11:08 Cetacaine [place] - TP 1 spray DAILY PRN Administration throat irritation Furosemide 40 mg 09/11/17 08:45 Lasix Injection - IVPUSH DAILY ANNA Levofloxacin 250 mg in 50 mls @ 50 mls/hr 09/07/17 22:00 09/10/17 21:53 Levaquin 250 Mg Premixed Ivpb - IVPB 50 mls/hr HS ANNA Administration Protocol Metronidazole 500 mg in 100 mls @ 100 mls/hr 09/07/17 10:00 09/11/17 02:42 Flagyl 500mg Premixed Ivpb - IVPB 100 mls/hr Q8H-IV ANNA Administration Metoprolol Tartrate 100 mg 09/09/17 22:00 09/10/17 21:54 Lopressor - PO Not Given BID ANNA Metoprolol Tartrate 5 mg 09/09/17 15:40 Lopressor Injection - IVPB Q6H PRN TACHYCARDIA Nystatin 1 applic 09/07/17 10:00 09/10/17 09:53 Nystop Powder - TP 1 applic DAILY ANNA Administration Pantoprazole Sodium 40 mg 09/10/17 10:00 09/10/17 09:51 Protonix - PO 40 mg DAILY ANNA Administration Potassium Chloride 20 meq 09/07/17 10:00 09/10/17 09:51 K-Dur - PO 20 meq DAILY ANNA Administration Spironolactone 25 mg 09/10/17 10:00 09/10/17 09:51 Aldactone - PO 25 mg DAILY ANNA Administration Home Medications Medication Instructions Recorded Aspirin 81 mg PO DAILY 09/06/17 Diltiazem Cd [Cardizem Cd -] 180 mg PO DAILY 09/06/17 Furosemide [Lasix -] 40 mg PO HS 09/06/17 Furosemide [Lasix -] 80 mg PO AM 09/06/17 Metoprolol Succinate [Toprol Xl -] 100 mg PO BID 09/06/17 Potassium Chloride [K-Dur -] 20 meq PO DAILY 09/06/17 Pravastatin Sodium [Pravachol] 40 mg PO DAILY 09/06/17 Spironolactone [Aldactone] 25 mg PO DAILY 09/06/17 Apixaban [Eliquis] 5 mg PO BID 09/07/17 ASSESSMENT AND PLAN: This is an 86 year old woman with a history of atrial fib, epilepsy, HTN, diverticulitis who presented to the ED with vomiting and diarrhea. # Acute Partial SBO resolved, s/p NGT , on soft diet now # Acute diverticulitis on Levaquin, Flagyl will continue with mild elevation of WBC 14.-->13.4 today, will get CRP level and will trend, discussed with GI covering for will see the patient. 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 No hydronephrosis. # Cholelithiasis multiple on CT of abdomen. # Electrolytes imbalance being repleted will check the level in a am. will repete the level. # Hypernatremia improved continue PO fluids. # Permanent atrial fibrillation on Lopressor, Eliquis , rate is controlled now , Cardizem on hold due to low BP # Acute kidney injury on stage 3 CKD creatinine is 1.5 today continue to hold Lisinopril, continue to monitor BUN, creatinine will monitor # Hyperlipidemia continue statin # Chronic diastolic heart failure, pulmonary HTN, continue Lasix, Aldactone #. HTN on Lopressor, Lasix, Aldactone ,off Cardizem and Lisinopril DvT Px: Eliquis Physical therapy, May need short term rehab Visit type - Emergency Visit Emergency Visit: Yes ED Registration Date: 09/07/17 Care time: The patient presented to the Emergency Department on the above date and was hospitalized for further evaluation of their emergent condition. - New Patient This patient is new to me today: No - Critical Care Critical Care patient: No - Discharge Referral Referred to [facility] Med P.C.: No
[2017-09-11 08:52] LABS: ALBUMIN 1.9 g/dl (3.4-5.0); ANION GAP 11 (8-16); BLOOD UREA NITROGEN 30 mg/dL (7-18); CALCIUM 8.1 mg/dL (8.5-10.1); CHLORIDE 108 mmol/L (98-107); CO2 20 mmol/L (21-32); GLUCOSE,RANDOM 149 mg/dL (74-106); PHOSPHOROUS 2.9 mg/dL (2.5-4.9); POTASSIUM 3.4 mmol/L (3.5-5.1); SGOT/AST 13 U/L (15-37); SODIUM 139 mmol/L (136-145)
[2017-09-11 08:53] LABS: ALK PHOS 69 U/L (45-117); BILIRUBIN,TOTAL 0.5 mg/dL (0.2-1.0); CREATININE 1.4 mg/dL (0.55-1.02); SGPT/ALT 10 U/L (12-78); TOT PROT 5.2 g/dl (6.4-8.2)
[2017-09-11] MEDS ORDERED: PT OWN MED DRAWER 7, Y5N ONE (09:55)
[2017-09-11] MEDS: APIXABAN 2.5 MG TABLET PO SCH ×2 (10:05→22:30)
[2017-09-11] MEDS: POTASSIUM CHLORIDE TABS 20 MEQ TABLET.ER (FP) PO SCH ×2 (10:05→22:30)
[2017-09-11] MEDS: PANTOPRAZOLE 40 MG TABLET (FP) PO SCH (10:05)
[2017-09-11] MEDS: SPIRONOLACTONE 25 MG TABLET (FP) PO SCH (10:20)
[2017-09-11] MEDS: METOPROLOL TARTRATE 50 MG TABLET (FP) PO SCH ×2 (10:20→22:29)
[2017-09-11] MEDS: NYSTATIN POWDER 100,000 UNITS/GM - 15 GM TOPICAL POWDER TP SCH (10:21)
[2017-09-11 17:36] LABS: URINE APPEARANCE CLEAR; URINE BILIRUBIN NEGATIVE (<2.0 mg/dL); URINE COLOR YELLOW; URINE GLUCOSE (UA) NEGATIVE (NEGATIVE); URINE KETONE NEGATIVE (NEGATIVE); URINE LEUK ESTERASE NEGATIVE (NEGATIVE); URINE NITRITE NEGATIVE (NEGATIVE); URINE PROTEIN NEGATIVE (NEGATIVE); URINE UROBILINOGEN NEGATIVE mg/dL (0.2-1.0)
[2017-09-11 17:38] LABS: EPI CELLS RARE /HPF (FEW); URINE HYALINE CAST 3 /lpf
--- NOTE | 2017-09-11 20:13 | PN ---
Progress Note (short form) - Note Progress Note: ID consult dictated Leukocytosis GI v. source Partial SBO Sigmoid diverticulitis Possible R ureteral obstruction Obtain blood c/s Urine c/s Urology evaluation Broaden empiric coverage IV Zosyn Continue Flagyl
--- NOTE | 2017-09-11 20:49 | PN ---
Progress Note (short form) - Note Progress Note: covering dr alatorre Problems 1. JAROD 2. a-fib 3. CHF 4. pulm HTN 5. CAD 6. partial sbo Current Medications Apixaban (Eliquis -) 2.5 mg PO BID [facility] Last Admin: 09/11/17 10:05 Dose: 2.5 mg Atorvastatin Calcium (Lipitor -) 10 mg PO HS [facility] Last Admin: 09/10/17 21:53 Dose: 10 mg Benzocaine/Butamben/Tetracaine HCl (Cetacaine [place] -) 1 spray TP DAILY PRN PRN Reason: throat irritation Last Admin: 09/07/17 11:08 Dose: 1 spray Furosemide (Lasix Injection -) 40 mg IVPUSH DAILY ANNA Metronidazole (Flagyl 500mg Premixed Ivpb -) 500 mg in 100 mls @ 100 mls/hr IVPB Q8H-IV ANNA Last Admin: 09/11/17 17:13 Dose: 100 mls/hr Piperacillin Sod/Tazobactam (Sod 3.375 gm/ Dextrose) 50 mls @ 100 mls/hr IVPB Q8H-IV ANNA PRN Reason: Protocol Metoprolol Tartrate (Lopressor -) 100 mg PO BID [facility] Last Admin: 09/11/17 10:20 Dose: 100 mg Metoprolol Tartrate (Lopressor Injection -) 5 mg IVPB Q6H PRN PRN Reason: TACHYCARDIA Nystatin (Nystop Powder -) 1 applic TP DAILY [facility] Last Admin: 09/11/17 10:21 Dose: 1 applic Pantoprazole Sodium (Protonix -) 40 mg PO DAILY [facility] Last Admin: 09/11/17 10:05 Dose: 40 mg Potassium Chloride (K-Dur -) 20 meq PO DAILY ANNA Last Admin: 09/11/17 10:05 Dose: 20 meq Potassium Chloride (K-Dur -) 20 meq PO BID [facility] Stop: 09/12/17 22:01 Spironolactone (Aldactone -) 25 mg PO DAILY [facility] Last Admin: 09/11/17 10:20 Dose: 25 mg Last Vital Signs Temp Pulse Resp BP Pulse Ox 98.0 F 86 20 100/60 96 09/11/17 18:00 09/11/17 18:00 09/11/17 18:00 09/11/17 18:00 09/11/17 09:00 alert in nad still c/o loose bm Lungs clear Heart reg Abd soft ext no edema CBC, BMP 09/11/17 07:00 09/11/17 07:00 IMP- JAROD seems to be improving hypokalemia nonAG metabolic acidosis Plan - consider holding/decreasing diuretics as she had partial SBO and is not eating much - urine sodium is low which is consistent with pre-renal disease - pt is not grossly fluid overloaded - cardiology input appreciated - repeat labs in am - replace lytes - check cxr - follow urine lytes - pt was hypotensive on admission and is hypotensive now - echo reviewed
[2017-09-11] MEDS ORDERED: DEXTROSE 5%-WATER - 50 ML IVPB ONE (22:27)
[2017-09-11] MEDS ORDERED: PIPERACILLIN/TAZOBACTAM 3.375 GM VIAL IVPB ONE (22:27)
[2017-09-11] MEDS: PIPERACILLIN/TAZOB 3.375 GM 3.375 GM in DEXTROSE 5%-WATER - 50 ML IVPB SCH (22:29)
[2017-09-11] MEDS: ATORVASTATIN CA 10 MG TABLET (FP) PO SCH (22:30)
[2017-09-12] MEDS ORDERED: DEXTROSE 5%-WATER - 50 ML IVPB ONE ×3 (02:00→17:08)
[2017-09-12] MEDS ORDERED: PIPERACILLIN/TAZOBACTAM 3.375 GM VIAL IVPB ONE ×3 (02:00→17:08)
[2017-09-12] MEDS: PIPERACILLIN/TAZOB 3.375 GM 3.375 GM in DEXTROSE 5%-WATER - 50 ML IVPB SCH ×3 (02:04→17:39)
--- NOTE | 2017-09-12 07:32 | PN ---
Physical Exam: SUBJECTIVE: Patient seen and examined - no major overnight events; VSS, afebrile; multiple large, normal BMs yesterday ; no other complaints; denies f/c/n/v/d, CP, cough, sob, ab pain, back pain, LE edema, rashes, FNDs OBJECTIVE: Vital Signs Intake & Output 09/09/17 09/10/17 09/11/17 09/12/17 23:59 23:59 23:59 23:59 Intake Total 1390 1550 800 200 Output Total 10 Balance 1380 1550 800 200 Weight 84.482 kg 86.183 kg 85.984 kg 85.729 kg Period Temp Pulse Resp BP Sys/Kendall Pulse Ox Last 24 Hr 97.6 F-98.6 F 83-99 18-20 100-112/6-69 96-96 GENERAL: Elderly woman, NAD HEAD: NCAT EYES: PERRL, extraocular movements intact, sclera anicteric, conjunctiva clear. No ptosis. ENT: Ears normal, nares patent, oropharynx clear without exudates, moist mucous membranes. NECK: Trachea midline, full range of motion, supple. LUNGS: decreased bibasilar airflow. Otherwise CTABL, no wheezes, , no accessory muscle use. HEART: RRR, S1, S2 without murmur, rub or gallop. ABDOMEN: Globular abdomen. Soft, nontender, + bowel sounds, no guarding, no rebound, no hepatosplenomegaly, no masses. EXTREMITIES: 2+ pulses, warm, well-perfused. trace edema BL to midshank NEUROLOGICAL: Cranial nerves II through XII grossly intact. Normal speech, gait not observed. PSYCH: Normal mood, normal affect. pleasant, interactive Laboratory Results - last 24 hr CBC, BMP CBC, BMP 09/12/17 07:30 09/12/17 07:30 09/11/17 07:00 09/11/17 07:00 09/11/17 09/11/17 09/11/17 07:00 07:00 07:00 WBC 13.4 H RBC 4.14 Hgb 12.2 Hct 36.8 MCV 88.7 MCH 29.5 MCHC 33.3 RDW 17.5 H Plt Count 242 MPV 8.3 Neutrophils % 85.6 H Lymphocytes % 7.6 L Monocytes % 4.7 Eosinophils % 1.9 Basophils % 0.2 PTT (Actin FS) 31.0 D Sodium 139 Potassium 3.4 L Chloride 108 H Carbon Dioxide 20 L Anion Gap 11 BUN 30 H Creatinine 1.4 H Creat Clearance w eGFR 35.74 Random Glucose 149 H Calcium 8.1 L Phosphorus 2.9 Magnesium 2.0 Total Bilirubin 0.5 AST 13 L ALT 10 L Alkaline Phosphatase 69 Total Protein 5.2 L Albumin 1.9 L Urine Color Urine Appearance Urine pH Ur Specific [place] Urine Protein Urine Glucose (UA) Urine Ketones Urine Blood Urine Nitrite Urine Bilirubin Urine Urobilinogen Ur Leukocyte Esterase Urine WBC (Auto) Urine RBC (Auto) Ur Epithelial Cells Hyaline Casts 09/11/17 17:00 WBC RBC Hgb Hct MCV MCH MCHC RDW Plt Count MPV Neutrophils % Lymphocytes % Monocytes % Eosinophils % Basophils % PTT (Actin FS) Sodium Potassium Chloride Carbon Dioxide Anion Gap BUN Creatinine Creat Clearance w eGFR Random Glucose Calcium Phosphorus Magnesium Total Bilirubin AST ALT Alkaline Phosphatase Total Protein Albumin Urine Color Yellow Urine Appearance Clear Urine pH 5.0 Ur Specific [place] 1.008 Urine Protein Negative Urine Glucose (UA) Negative Urine Ketones Negative Urine Blood 1+ H Urine Nitrite Negative Urine Bilirubin Negative Urine Urobilinogen Negative Ur Leukocyte Esterase Negative Urine WBC (Auto) 1 Urine RBC (Auto) None Ur Epithelial Cells Rare Hyaline Casts 3 Active Medications Generic Name Dose Route Start Last Admin Trade Name Freq PRN Reason Stop Dose Admin Apixaban 2.5 mg 09/10/17 10:21 09/11/17 22:30 Eliquis - PO 2.5 mg BID ANNA Administration Atorvastatin Calcium 10 mg 09/07/17 22:00 09/11/17 22:30 Lipitor - PO 10 mg HS ANNA Administration Benzocaine/Butamben/Tetracaine HCl 1 spray 09/07/17 10:15 09/07/17 11:08 Cetacaine [place] - TP 1 spray DAILY PRN Administration throat irritation Furosemide 40 mg 09/12/17 14:00 Lasix Injection - IVPUSH DAILY ANNA Metronidazole 500 mg in 100 mls @ 100 mls/hr 09/07/17 10:00 09/12/17 02:04 Flagyl 500mg Premixed Ivpb - IVPB 100 mls/hr Q8H-IV ANNA Administration Piperacillin Sod/Tazobactam 50 mls @ 100 mls/hr 09/11/17 21:30 09/12/17 02:04 Sod 3.375 gm/ Dextrose IVPB 100 mls/hr Q8H-IV ANNA Administration Protocol Metoprolol Tartrate 100 mg 09/09/17 22:00 09/11/17 22:29 Lopressor - PO 100 mg BID ANNA Administration Metoprolol Tartrate 5 mg 09/09/17 15:40 Lopressor Injection - IVPB Q6H PRN TACHYCARDIA Nystatin 1 applic 09/07/17 10:00 09/11/17 10:21 Nystop Powder - TP 1 applic DAILY ANNA Administration Pantoprazole Sodium 40 mg 09/10/17 10:00 09/11/17 10:05 Protonix - PO 40 mg DAILY ANNA Administration Potassium Chloride 20 meq 09/07/17 10:00 09/11/17 10:05 K-Dur - PO 20 meq DAILY ANNA Administration Potassium Chloride 20 meq 09/11/17 22:00 09/11/17 22:30 K-Dur - PO 09/12/17 22:01 20 meq BID ANNA Administration Spironolactone 25 mg 09/10/17 10:00 09/11/17 10:20 Aldactone - PO 25 mg DAILY ANNA Administration Microbiology 09/09/17 12:45 Colon Fluid Salmonella/Shigella Culture - Preliminary NO ENTERIC PATHOGENS, 24 HOURS, ON PRIMARY PLATES 09/09/17 12:45 Colon Fluid Yersinia Culture - Preliminary NO ENTERIC PATHOGENS, 24 HOURS, ON PRIMARY PLATES 09/09/17 12:45 Colon Fluid Vibrio Culture - Preliminary NO ENTERIC PATHOGENS, 24 HOURS, ON PRIMARY PLATES 09/09/17 12:45 Colon Fluid Escherichia coli 0157 Culture - Preliminary NO ENTERIC PATHOGENS, 24 HOURS, ON PRIMARY PLATES 09/09/17 12:45 Stool Clostridium difficile Antigen (DOE) - Final 09/09/17 12:45 Stool Clostridium difficile Toxin Assay - Final CXR 09/06 -Since 08/01/2009, there is a slightly elevated left hemidiaphragm with large heart, sclerotic knob but no sign of an acute chest process. There is no sign of a pneumoperitoneum or gross abdominal distention. Correlation recommended. Ab XR 09/06 - Impression: Small bowel obstruction. Get CT. Ab CT/Pelvis 09/06 - IMPRESSION: 1. 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 2. Cholelithiasis. 3. 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 4. Proximal small bowel distention consistent with a partial SBO. 5. Inflammatory changes about the proximal sigmoid colon consistent with mild acute diverticulitis. 6. Fibroid uterus. Please see above discussion. Renal/Bladder U/s - 09/07 - IMPRESSION: No left hydronephrosis is noted. 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 The kidneys otherwise demonstrate no definite sonographic abnormality. The current urinary bladder volume is approximately 360 mL. The patient was unable to void at this time - ? early/mild urinary retention. Correlate clinically. Close follow-up sonography may be considered. AB XR 5-2 - NG tube in place; no abnormalities noted ECHO 09/08 - EF 60%, normal LV size and function, RV pressure >60, mild MR ASSESSMENT/PLAN: 86 yo F with a PMHx of A-fib, Epilepsy, HTN, diverticulitis, presented to the ED wit vomiting and diarrhea and was found to have SBO & diverticulitis. Doing well, tolerating oral feeds, po meds. GI and Surgery following. #Partial SBO - Imaging confirmed, transition point not identified; NGT d/c'ed 09/08; resolving -Surgery following -tolerating soft diet -GI following, recs appreciated #Diarrhea - No further bouts of diarrhea overnight - f/u remaining stool studies - c diff negative - possibly secondary to meds - trend wbc, fever #Diverticulitis - confirmed on CT ab/pelvis; still with elevated WBC count to 14 ~ - flagyl day 6, day 2 zosyn - GI following - FOBT negative - PO meds - f/u repeat CT A/P - gastroenteritis panel, cdiff negative - PO protonix #A-fib - controlled - trend INR - eliquis BID 5mg - lopressor q6h 5mg prn; - lopressor PO 100mg BID - holding cardizem for now; hypotensive overnight - cardiology consulted #CHF - secondary likely to afib - strict Is and Os - Lasix 40mg IV daily - echo results noted above - cardiology consulted #JAROD - 1.2 today, improving; baseline 0.8 per PMD; prior hx of AIN -avoid nephrotoxins -c/w aldactone -renally dose all meds - bladder and renal U/S as noted above - if JAROD worsens with lasix, consider decreasing/removing #HLD -c/w home statin #PPx -eliquis #FEN PO hydration Daily lytes soft diet Plan discussed with Dr. Inna Arenas, PGY1 Visit type - Emergency Visit Emergency Visit: Yes ED Registration Date: 09/07/17 Care time: The patient presented to the Emergency Department on the above date and was hospitalized for further evaluation of their emergent condition. - New Patient This patient is new to me today: No - Critical Care Critical Care patient: No - Discharge Referral Referred to [facility] Med P.C.: No
[2017-09-12] MEDS: NAPH,MB-DB/K PH,MBDB POWDER PACKET PO SCH (07:40)
[2017-09-12] MEDS: METOPROLOL TARTRATE 5 MG/5 ML VIAL IVPB SCH ×2 (07:45→07:46)
[2017-09-12 08:26] LABS: BASO % 0.3 % (0-2.0); EOS % 1.9 % (0-4.5); HEMATOCRIT 37.6 % (32.4-45.2); HEMOGLOBIN 12.3 GM/dL (10.7-15.3); LYMPH % 6.9 % (8-40); MCH 28.9 pg (25.7-33.7); MCHC 32.6 g/dl (32.0-36.0); MEAN CELL VOLUME 88.7 fl (80-96); MEAN PLT VOLUME 8.3 fl (7.5-11.1); MONO % 4.3 % (3.8-10.2); NEUT % 86.6 % (42.8-82.8); PLATELET COUNT 281 K/MM3 (134-434); RBC 4.24 M/mm3 (3.60-5.2); RDW 17.4 % (11.6-15.6); WHITE BLOOD COUNT 14.5 K/mm3 (4.0-10.0)
[2017-09-12 08:52] LABS: ALK PHOS 106 U/L (45-117); ANION GAP 10 (8-16); BILIRUBIN,TOTAL 0.5 mg/dL (0.2-1.0); BLOOD UREA NITROGEN 26 mg/dL (7-18); CALCIUM 8.1 mg/dL (8.5-10.1); CHLORIDE 110 mmol/L (98-107); CO2 21 mmol/L (21-32); CREATININE 1.2 mg/dL (0.55-1.02); GLUCOSE,RANDOM 113 mg/dL (74-106); POTASSIUM 4.1 mmol/L (3.5-5.1); SGOT/AST 23 U/L (15-37); SGPT/ALT 11 U/L (12-78); SODIUM 141 mmol/L (136-145); TOT PROT 5.2 g/dl (6.4-8.2)
[2017-09-12] MEDS ORDERED: PT OWN MED DRAWER 7, Y5N ONE (09:20)
[2017-09-12] MEDS ORDERED: METOPROLOL TARTRATE 50 MG TABLET (FP) PO ONE (09:22)
--- NOTE | 2017-09-12 09:27 | CONS ---
DATE OF CONSULTATION: DATE OF DICTATION: 09/11/2017 The patient is an 86-year-old female who is evaluated for leukocytosis. History was obtained from the chart as well as patient's daughter present at the time of the examination. She was admitted to the hospital on September 07, 2017, with a 4-day history of cough, nausea, diarrhea, anorexia, dry heaves, and abdominal distention. Her symptoms markedly worsened. She had a near-syncopal episode, prompting family to bring her to the emergency room. The patient was evaluated in the emergency room, where a CT scan of the abdomen and pelvis showed cholelithiasis and evidence of small bowel obstruction with sigmoid diverticulitis. Cultures were obtained and she was empirically treated with Levaquin and Flagyl. CT scan also revealed a distended right renal pelvis with suggestion of obstruction at the right UV junction without obvious stone or mechanical obstruction. The patient was treated with IV antibiotics, she was seen in consultation by Surgery, an NG tube was passed. Her hospital course is significant now for worsening leukocytosis. Patient has no complaints of abdominal pain. She has had loose bowel movements. Denies any dysuria or hematuria. No high-grade fever or shaking chills. PAST MEDICAL HISTORY: Positive for atrial fibrillation, seizure disorder. PAST SURGICAL HISTORY: Status post bowel resection in 2001. No known allergies. MEDICATIONS: Aspirin; Cardizem; Lasix; lisinopril; Toprol; Pravachol; Aldactone; Eliquis. SOCIAL HISTORY: She lives at home with family members. Nonsmoker, nondrinker. SYSTEMS REVIEW: Neurologic: Positive for near-syncopal episode. No loss of consciousness, seizure activity, or focal weakness. Cardiac: Negative chest pain or palpitations. Respiratory: Positive for cough and dry heaves. Negative for sputum production. Gastrointestinal: As per HPI. Genitourinary: Negative for urinary tract infection. LABORATORY DATA: White count 13.4, hematocrit 36.8, platelet count 242. BUN 30, creatinine 1.4. Urinalysis with 1 white cell, no red cells. Stool culture negative. Clostridium difficile negative. PHYSICAL EXAMINATION: General: She is awake and alert, supine in bed, in no acute distress, not acutely toxic-appearing. Vital Signs: Temperature 98.3, blood pressure 105/67, pulse 88 and regular, respirations 20/min. HEENT: Sclerae anicteric. Heart Sounds: S1, S2. Lungs: Decreased breath sounds at the bases bilaterally. Abdomen: Distended, tympanitic, soft. No tenderness elicited. No mass, rebound, or rigidity. Extremities: One-plus edema. IMPRESSION: 1. Leukocytosis, probable gastrointestinal versus genitourinary source. 2. Partial small bowel obstruction. 3. Sigmoid diverticulitis. 4. Possible right ureterovesical junction obstruction. In light of worsening leukocytosis, would broaden antimicrobial coverage to include gastrointestinal and genitourinary pathogens with Zosyn 3.375 g IV piggyback every 8 hours. Continue Flagyl. Would obtain urology consult for evaluation of possible right ureteral obstruction. Case discussed with Hospitalist as well as patient's daughter present at the time of the examination. Thank you for the kind referral. SHELIA MARTINEZ M.D. ROBYN/[id number]
[2017-09-12] MEDS: METOPROLOL TARTRATE 50 MG TABLET (FP) PO SCH ×2 (09:28→22:06)
[2017-09-12] MEDS: PANTOPRAZOLE 40 MG TABLET (FP) PO SCH (09:35)
[2017-09-12] MEDS: APIXABAN 2.5 MG TABLET PO SCH ×2 (09:35→22:07)
[2017-09-12] MEDS: SPIRONOLACTONE 25 MG TABLET (FP) PO SCH (09:35)
[2017-09-12] MEDS: NYSTATIN POWDER 100,000 UNITS/GM - 15 GM TOPICAL POWDER TP SCH (09:35)
[2017-09-12] MEDS: POTASSIUM CHLORIDE TABS 20 MEQ TABLET.ER (FP) PO SCH ×3 (09:35→22:07)
--- NOTE | 2017-09-12 12:09 | PN ---
GI Progress Note Subjective: Dr. Corbin covering for Dr. Sarmiento who resumes care 09/13 Asked by [facility] to follow-up re: rising WBC Ms. Vega denies any focal complaints Son bedside + Loose BM's (C. Diff neg 09/09) - Objective Vital Signs: Vital Signs Temperature 98.4 F 09/12/17 08:53 Pulse Rate 85 09/12/17 08:53 Respiratory Rate 20 09/12/17 08:53 Blood Pressure 99/58 09/12/17 08:53 O2 Sat by Pulse Oximetry (%) 96 09/11/17 22:00 Constitutional: Calm Eyes: No: Sclera Icterus Cardiovascular: Yes: Regular Rate and Rhythm Respiratory: Yes: CTA Bilaterally Gastrointestinal Inspection: Yes: Scars. No: Distention ...Auscultate: Yes: Normoactive Bowel Sounds ...Palpate: Yes: Soft, Tenderness (LLQ). No: Guarding, Tenderness, Rebound Neurological: Yes: Alert Labs: CBC, BMP 09/12/17 07:30 09/12/17 07:30 INR, PTT INR 2.62 (0.82-1.09) H 09/07/17 08:00 Hepatic Panel Total Bilirubin 0.5 mg/dL (0.2-1.0) 09/12/17 07:30 AST 23 U/L (15-37) 09/12/17 07:30 ALT 11 U/L (12-78) L 09/12/17 07:30 Alkaline Phosphatase 106 U/L (45-117) 09/12/17 07:30 Albumin 2.0 g/dl (3.4-5.0) L 09/12/17 07:30 Problem List - Problems (1) Diverticulitis Assessment/Plan: Unclear if the diverticulitis is the cause of her rising WBC Still with TTP LLQ Ordered repeat CT scan abd/pelvis with PO contrast for AM ID following now Code(s): K57.92 - DVTRCLI OF INTEST, PART UNSP, W/O PERF OR ABSCESS W/O BLEED
[2017-09-12] MEDS: FUROSEMIDE 40 MG/4 ML INJECTABLE VIAL IVPUSH SCH (13:50)
--- NOTE | 2017-09-12 14:17 | PN ---
Progress Note, Physician History of Present Illness: OOB in chair No c/o abdominal pain at present No N/V Tolerating diet Semi-formed stool No c/o fever/ chills WBC remains elevated 14.5 - Current Medication List Current Medications: Active Medications Apixaban (Eliquis -) 2.5 mg PO BID [facility] Last Admin: 09/12/17 09:35 Dose: 2.5 mg Atorvastatin Calcium (Lipitor -) 10 mg PO HS [facility] Last Admin: 09/11/17 22:30 Dose: 10 mg Benzocaine/Butamben/Tetracaine HCl (Cetacaine [place] -) 1 spray TP DAILY PRN PRN Reason: throat irritation Last Admin: 09/07/17 11:08 Dose: 1 spray Furosemide (Lasix Injection -) 40 mg IVPUSH DAILY [facility] Last Admin: 09/12/17 13:50 Dose: 40 mg Metronidazole (Flagyl 500mg Premixed Ivpb -) 500 mg in 100 mls @ 100 mls/hr IVPB Q8H-IV [facility] Last Admin: 09/12/17 10:05 Dose: 100 mls/hr Piperacillin Sod/Tazobactam (Sod 3.375 gm/ Dextrose) 50 mls @ 100 mls/hr IVPB Q8H-IV ANNA PRN Reason: Protocol Last Admin: 09/12/17 09:34 Dose: 100 mls/hr Metoprolol Tartrate (Lopressor -) 100 mg PO BID [facility] Last Admin: 09/12/17 09:28 Dose: Not Given Metoprolol Tartrate (Lopressor Injection -) 5 mg IVPB Q6H PRN PRN Reason: TACHYCARDIA Nystatin (Nystop Powder -) 1 applic TP DAILY [facility] Last Admin: 09/12/17 09:35 Dose: 1 applic Pantoprazole Sodium (Protonix -) 40 mg PO DAILY [facility] Last Admin: 09/12/17 09:35 Dose: 40 mg Potassium Chloride (K-Dur -) 20 meq PO DAILY [facility] Last Admin: 09/12/17 09:35 Dose: 20 meq Potassium Chloride (K-Dur -) 20 meq PO BID [facility] Stop: 09/12/17 22:01 Last Admin: 09/12/17 09:35 Dose: 20 meq Spironolactone (Aldactone -) 25 mg PO DAILY [facility] Last Admin: 09/12/17 09:35 Dose: 25 mg - Objective Vital Signs: Vital Signs Temperature 98.4 F 09/12/17 08:53 Pulse Rate 85 09/12/17 08:53 Respiratory Rate 20 09/12/17 08:53 Blood Pressure 99/58 09/12/17 08:53 O2 Sat by Pulse Oximetry (%) 96 09/11/17 22:00 Constitutional: Yes: No Distress Cardiovascular: Yes: Regular Rate and Rhythm, S1, S2 Respiratory: Yes: Other (few crepitations at bases) Gastrointestinal: Yes: Normal Bowel Sounds, Soft, Tenderness, Other (mild LLQ tenderness to palpation) Edema: Yes Labs: CBC, BMP 09/12/17 07:30 09/12/17 07:30 INR, PTT INR 2.62 (0.82-1.09) H 09/07/17 08:00 Assessment/Plan Leukocytosis- GI v source Diverticulitis ? Obstructive uropathy Family reports pt with hx of "large" R kidney CT findings may be chronic in nature Repeat BC prelim no growth For follow up CT A/P Antibiotic coverage broadened pending c/s Discussed at length with family at bedside
--- NOTE | 2017-09-12 14:40 | PN ---
Teaching Attending Note Name of Resident: Balaji Arenas ATTENDING PHYSICIAN STATEMENT I saw and evaluated the patient. I reviewed the resident's note and discussed the case with the resident. I agree with the resident's findings and plan as documented. SUBJECTIVE: Patient is feeling better today, no further diarrhea today. No abdominal pain, No nausea or vomiting. Daughter and son at bedside. OBJECTIVE: Vital Signs Temperature 98.0 F 09/12/17 14:00 Pulse Rate 90 09/12/17 14:00 Respiratory Rate 21 09/12/17 14:00 Blood Pressure 101/76 09/12/17 14:00 O2 Sat by Pulse Oximetry (%) 96 09/11/17 22:00 GENERAL: Elderly woman, pleasant, NAD HEAD: NCAT EYES: PERRLA, extraocular movements intact, sclera anicteric, conjunctiva clear. ENT: Ears normal, oropharynx clear without exudates, moist mucous membranes. NECK: Trachea midline, full range of motion, supple. LUNGS: Breath sounds equal, clear to auscultation bilaterally, no wheezes, , no accessory muscle use. HEART: IR-Irregular , S1, S2 without murmur, rub or gallop. ABDOMEN: mild distention. Soft, nontender, normoactive bowel sounds, no guarding , no rebound, no hepatosplenomegaly, no masses appreciated . EXTREMITIES: 2+ pulses, warm, well-perfused. trace pitting edema of LE. NEUROLOGICAL: Cranial nerves II through XII grossly intact. Normal speech, gait not observed. PSYCH: Normal mood, normal affect. pleasant, interactive CBCD WBC 14.5 K/mm3 (4.0-10.0) H 09/12/17 07:30 RBC 4.24 M/mm3 (3.60-5.2) 09/12/17 07:30 Hgb 12.3 GM/dL (10.7-15.3) 09/12/17 07:30 Hct 37.6 % (32.4-45.2) 09/12/17 07:30 MCV 88.7 fl (80-96) 09/12/17 07:30 MCHC 32.6 g/dl (32.0-36.0) 09/12/17 07:30 RDW 17.4 % (11.6-15.6) H 09/12/17 07:30 Plt Count 281 K/MM3 (134-434) 09/12/17 07:30 MPV 8.3 fl (7.5-11.1) 09/12/17 07:30 CMP Sodium 141 mmol/L (136-145) 09/12/17 07:30 Potassium 4.1 mmol/L (3.5-5.1) 09/12/17 07:30 Chloride 110 mmol/L (98-107) H 09/12/17 07:30 Carbon Dioxide 21 mmol/L (21-32) 09/12/17 07:30 Anion Gap 10 (8-16) 09/12/17 07:30 BUN 26 mg/dL (7-18) H 09/12/17 07:30 Creatinine 1.2 mg/dL (0.55-1.02) H 09/12/17 07:30 Creat Clearance w eGFR 42.70 (>60) 09/12/17 07:30 Random Glucose 113 mg/dL (74-106) H 09/12/17 07:30 Calcium 8.1 mg/dL (8.5-10.1) L 09/12/17 07:30 Total Bilirubin 0.5 mg/dL (0.2-1.0) 09/12/17 07:30 AST 23 U/L (15-37) 09/12/17 07:30 ALT 11 U/L (12-78) L 09/12/17 07:30 Alkaline Phosphatase 106 U/L (45-117) 09/12/17 07:30 Total Protein 5.2 g/dl (6.4-8.2) L 09/12/17 07:30 Albumin 2.0 g/dl (3.4-5.0) L 09/12/17 07:30 CARDIAC ENZYMES Creatine Kinase 23 IU/L (26-192) L 09/06/17 19:41 Troponin I < 0.02 ng/ml (0.00-0.05) 09/06/17 19:41 Current Medications Generic Name Dose Route Start Last Admin Trade Name Freq PRN Reason Stop Dose Admin Apixaban 2.5 mg 09/10/17 10:21 09/12/17 09:35 Eliquis - PO 2.5 mg BID ANNA Administration Atorvastatin Calcium 10 mg 09/07/17 22:00 09/11/17 22:30 Lipitor - PO 10 mg HS ANNA Administration Benzocaine/Butamben/Tetracaine HCl 1 spray 09/07/17 10:15 09/07/17 11:08 Cetacaine [place] - TP 1 spray DAILY PRN Administration throat irritation Furosemide 40 mg 09/12/17 14:00 09/12/17 13:50 Lasix Injection - IVPUSH 40 mg DAILY ANNA Administration Metronidazole 500 mg in 100 mls @ 100 mls/hr 09/07/17 10:00 09/12/17 10:05 Flagyl 500mg Premixed Ivpb - IVPB 100 mls/hr Q8H-IV ANNA Administration Piperacillin Sod/Tazobactam 50 mls @ 100 mls/hr 09/11/17 21:30 09/12/17 09:34 Sod 3.375 gm/ Dextrose IVPB 100 mls/hr Q8H-IV ANNA Administration Protocol Metoprolol Tartrate 100 mg 09/09/17 22:00 09/12/17 09:28 Lopressor - PO Not Given BID ANNA Metoprolol Tartrate 5 mg 09/09/17 15:40 Lopressor Injection - IVPB Q6H PRN TACHYCARDIA Nystatin 1 applic 09/07/17 10:00 09/12/17 09:35 Nystop Powder - TP 1 applic DAILY ANNA Administration Pantoprazole Sodium 40 mg 09/10/17 10:00 09/12/17 09:35 Protonix - PO 40 mg DAILY ANNA Administration Potassium Chloride 20 meq 09/07/17 10:00 09/12/17 09:35 K-Dur - PO 20 meq DAILY ANNA Administration Potassium Chloride 20 meq 09/11/17 22:00 09/12/17 09:35 K-Dur - PO 09/12/17 22:01 20 meq BID ANNA Administration Spironolactone 25 mg 09/10/17 10:00 09/12/17 09:35 Aldactone - PO 25 mg DAILY ANNA Administration Home Medications Medication Instructions Recorded Aspirin 81 mg PO DAILY 09/06/17 Diltiazem Cd [Cardizem Cd -] 180 mg PO DAILY 09/06/17 Furosemide [Lasix -] 40 mg PO HS 09/06/17 Furosemide [Lasix -] 80 mg PO AM 09/06/17 Metoprolol Succinate [Toprol Xl -] 100 mg PO BID 09/06/17 Potassium Chloride [K-Dur -] 20 meq PO DAILY 09/06/17 Pravastatin Sodium [Pravachol] 40 mg PO DAILY 09/06/17 Spironolactone [Aldactone] 25 mg PO DAILY 09/06/17 Apixaban [Eliquis] 5 mg PO BID 09/07/17 Urine Test Results Urine Color Yellow 09/11/17 17:00 Urine Appearance Clear 09/11/17 17:00 Urine pH 5.0 (5.0-8.0) 09/11/17 17:00 Ur Specific [place] 1.008 (1.001-1.035) 09/11/17 17:00 Urine Protein Negative (NEGATIVE) 09/11/17 17:00 Urine Glucose (UA) Negative (NEGATIVE) 09/11/17 17:00 Urine Ketones Negative (NEGATIVE) 09/11/17 17:00 Urine Blood 1+ (NEGATIVE) H 09/11/17 17:00 Urine Nitrite Negative (NEGATIVE) 09/11/17 17:00 Urine Bilirubin Negative (<2.0 mg/dL) 09/11/17 17:00 Ur Leukocyte Esterase Negative (NEGATIVE) 09/11/17 17:00 Ur Epithelial Cells Rare /HPF (FEW) 09/11/17 17:00 Microbiology 09/09/17 12:45 Colon Fluid Salmonella/Shigella Culture - Final NO GROWTH OF SALMONELLA OR SHIGELLA SPECIES OBTAINED 09/09/17 12:45 Colon Fluid Campylobacter Culture - Final NO GROWTH OF CAMPYLOBACTER SPECIES OBTAINED 09/09/17 12:45 Colon Fluid Yersinia Culture - Final NO GROWTH OF YERSINIA SPECIES OBTAINED 09/09/17 12:45 Colon Fluid Vibrio Culture - Final NO GROWTH OF VIBRIO SPECIES OBTAINED 09/09/17 12:45 Colon Fluid Escherichia coli 0157 Culture - Final NO GROWTH OF E COLI 0157 OBTAINED 09/09/17 12:45 Stool Clostridium difficile Antigen (DOE) - Final 09/09/17 12:45 Stool Clostridium difficile Toxin Assay - Final ASSESSMENT AND PLAN: This is an 86 year old woman with a history of atrial fib, epilepsy, HTN, diverticulitis who presented to the ED with vomiting and diarrhea. # Acute diverticulitis on Zosyn and Flagyl switched to broader coverage as per ID , since elevation of WBC continues unclear whether due to GI or , seen the patient ordered repeat CT of abdomen with oral contrast for am , WBC continues to rise : WBC 14.-->13.4-->14.5 today , elevated CRP is 6 today will trend. 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 No hydronephrosis. if repeat Ct of abdomen is negative and if that's not the source of infection then UPJ of obstructing stone will need to be addressed. will get bladder scan to check whether any urinary retention. PLEASE CHECK WITH RADIOLOGY IF THERE IA ANY STONE OR NOT # Acute Partial SBO resolved, s/p NGT , on soft diet now, stool is semiformed # Left adrenal mass fat containing myelolipoma [id number] on Ct scan # Cholelithiasis multiple on CT of abdomen. # Electrolytes imbalance being repleted will check the level in a am. will repete the level. # Hypernatremia improved continue PO fluids. # Permanent atrial fibrillation on Lopressor, Eliquis , rate is controlled now , Cardizem on hold due to low BP # Acute kidney injury on stage 3 CKD creatinine is 1.5 today continue to hold Lisinopril, continue to monitor BUN, creatinine will monitor # Hyperlipidemia continue statin # Chronic diastolic heart failure, pulmonary HTN, continue Lasix, Aldactone #. HTN on Lopressor, Lasix, Aldactone ,off Cardizem and Lisinopril DvT Px: Eliquis Physical therapy, May need short term rehab
--- NOTE | 2017-09-12 17:36 | PN ---
Progress Note (short form) - Note Progress Note: covering dr alatorre Problems 1. JAROD 2. a-fib 3. CHF 4. pulm HTN 5. CAD 6. partial sbo Current Medications Apixaban (Eliquis -) 2.5 mg PO BID [facility] Last Admin: 09/12/17 09:35 Dose: 2.5 mg Atorvastatin Calcium (Lipitor -) 10 mg PO HS [facility] Last Admin: 09/11/17 22:30 Dose: 10 mg Benzocaine/Butamben/Tetracaine HCl (Cetacaine [place] -) 1 spray TP DAILY PRN PRN Reason: throat irritation Last Admin: 09/07/17 11:08 Dose: 1 spray Furosemide (Lasix Injection -) 40 mg IVPUSH DAILY [facility] Last Admin: 09/12/17 13:50 Dose: 40 mg Metronidazole (Flagyl 500mg Premixed Ivpb -) 500 mg in 100 mls @ 100 mls/hr IVPB Q8H-IV [facility] Last Admin: 09/12/17 10:05 Dose: 100 mls/hr Piperacillin Sod/Tazobactam (Sod 3.375 gm/ Dextrose) 50 mls @ 100 mls/hr IVPB Q8H-IV ANNA PRN Reason: Protocol Last Admin: 09/12/17 09:34 Dose: 100 mls/hr Metoprolol Tartrate (Lopressor -) 100 mg PO BID [facility] Last Admin: 09/12/17 09:28 Dose: Not Given Metoprolol Tartrate (Lopressor Injection -) 5 mg IVPB Q6H PRN PRN Reason: TACHYCARDIA Nystatin (Nystop Powder -) 1 applic TP DAILY [facility] Last Admin: 09/12/17 09:35 Dose: 1 applic Pantoprazole Sodium (Protonix -) 40 mg PO DAILY [facility] Last Admin: 09/12/17 09:35 Dose: 40 mg Potassium Chloride (K-Dur -) 20 meq PO DAILY [facility] Last Admin: 09/12/17 09:35 Dose: 20 meq Potassium Chloride (K-Dur -) 20 meq PO BID [facility] Stop: 09/12/17 22:01 Last Admin: 09/12/17 09:35 Dose: 20 meq Spironolactone (Aldactone -) 25 mg PO DAILY [facility] Last Admin: 09/12/17 09:35 Dose: 25 mg Last Vital Signs Temp Pulse Resp BP Pulse Ox 98.0 F 90 21 101/76 95 09/12/17 14:00 09/12/17 14:00 09/12/17 14:00 09/12/17 14:00 09/12/17 09:00 alert in nad still c/o loose bm Lungs clear Heart reg Abd soft ext no edema CBC, BMP 09/12/17 07:30 09/12/17 07:30 CBC, BMP 09/11/17 07:00 09/11/17 07:00 IMP- JAROD seems to be improving in spite of ongoing diuretics hypokalemia nonAG metabolic acidosis s/p wheezing earlier rx furosemide for same Plan - consider holding/decreasing diuretics as she had partial SBO and is not eating much -
[2017-09-12] MEDS: ATORVASTATIN CA 10 MG TABLET (FP) PO SCH (22:06)
[2017-09-13] MEDS ORDERED: DEXTROSE 5%-WATER - 50 ML IVPB ONE ×3 (02:07→17:26)
[2017-09-13] MEDS ORDERED: PIPERACILLIN/TAZOBACTAM 3.375 GM VIAL IVPB ONE ×3 (02:07→17:26)
[2017-09-13] MEDS: PIPERACILLIN/TAZOB 3.375 GM 3.375 GM in DEXTROSE 5%-WATER - 50 ML IVPB SCH ×3 (02:36→17:34)
[2017-09-13 07:25] LABS: BASO % 0.4 % (0-2.0); EOS % 1.8 % (0-4.5); HEMATOCRIT 33.7 % (32.4-45.2); HEMOGLOBIN 11.3 GM/dL (10.7-15.3); LYMPH % 8.1 % (8-40); MCH 29.6 pg (25.7-33.7); MCHC 33.4 g/dl (32.0-36.0); MEAN CELL VOLUME 88.5 fl (80-96); MEAN PLT VOLUME 8.1 fl (7.5-11.1); MONO % 3.7 % (3.8-10.2); PLATELET COUNT 328 K/MM3 (134-434); RBC 3.81 M/mm3 (3.60-5.2); RDW 17.4 % (11.6-15.6); WHITE BLOOD COUNT 15.1 K/mm3 (4.0-10.0)
[2017-09-13 07:51] LABS: ALK PHOS 100 U/L (45-117); ANION GAP 9 (8-16); BILIRUBIN,TOTAL 0.4 mg/dL (0.2-1.0); BLOOD UREA NITROGEN 23 mg/dL (7-18); CALCIUM 8.1 mg/dL (8.5-10.1); CHLORIDE 112 mmol/L (98-107); CO2 22 mmol/L (21-32); CREATININE 1.2 mg/dL (0.55-1.02); GLUCOSE,RANDOM 120 mg/dL (74-106); MAGNESIUM 1.5 mg/dL (1.8-2.4); PHOSPHOROUS 2.2 mg/dL (2.5-4.9); POTASSIUM 4.1 mmol/L (3.5-5.1); SGOT/AST 25 U/L (15-37); SGPT/ALT 14 U/L (12-78); SODIUM 143 mmol/L (136-145); TOT PROT 5.2 g/dl (6.4-8.2)
--- NOTE | 2017-09-13 08:57 | PN ---
Progress Note, Physician History of Present Illness: Awake, alert Supine in bed Offers no complaints. No c/o abdominal pain. No N/V Semi-formed stool No c/o fever/ chills No c/o dysuria WBC remains elevated 15.1 Repeat BC no growth Repeat CT A/P pending - Current Medication List Current Medications: Active Medications Apixaban (Eliquis -) 2.5 mg PO BID [facility] Last Admin: 09/12/17 22:07 Dose: 2.5 mg Atorvastatin Calcium (Lipitor -) 10 mg PO HS [facility] Last Admin: 09/12/17 22:06 Dose: 10 mg Benzocaine/Butamben/Tetracaine HCl (Cetacaine [place] -) 1 spray TP DAILY PRN PRN Reason: throat irritation Last Admin: 09/07/17 11:08 Dose: 1 spray Furosemide (Lasix Injection -) 40 mg IVPUSH DAILY [facility] Last Admin: 09/12/17 13:50 Dose: 40 mg Metronidazole (Flagyl 500mg Premixed Ivpb -) 500 mg in 100 mls @ 100 mls/hr IVPB Q8H-IV [facility] Last Admin: 09/13/17 02:38 Dose: 100 mls/hr Piperacillin Sod/Tazobactam (Sod 3.375 gm/ Dextrose) 50 mls @ 100 mls/hr IVPB Q8H-IV ANNA PRN Reason: Protocol Last Admin: 09/13/17 02:36 Dose: 100 mls/hr Metoprolol Tartrate (Lopressor -) 100 mg PO BID [facility] Last Admin: 09/12/17 22:06 Dose: 100 mg Metoprolol Tartrate (Lopressor Injection -) 5 mg IVPB Q6H PRN PRN Reason: TACHYCARDIA Nystatin (Nystop Powder -) 1 applic TP DAILY [facility] Last Admin: 09/12/17 09:35 Dose: 1 applic Pantoprazole Sodium (Protonix -) 40 mg PO DAILY [facility] Last Admin: 09/12/17 09:35 Dose: 40 mg Potassium Chloride (K-Dur -) 20 meq PO DAILY [facility] Last Admin: 09/12/17 09:35 Dose: 20 meq Spironolactone (Aldactone -) 25 mg PO DAILY [facility] Last Admin: 09/12/17 09:35 Dose: 25 mg - Objective Vital Signs: Vital Signs Temperature 97.8 F 09/13/17 06:57 Pulse Rate 88 05/07/18 06:57 Respiratory Rate 20 09/13/17 06:57 Blood Pressure 111/63 09/13/17 06:57 O2 Sat by Pulse Oximetry (%) 97 09/12/17 21:00 Constitutional: Yes: No Distress, Obese Cardiovascular: Yes: Regular Rate and Rhythm, S1, S2 Respiratory: Yes: CTA Bilaterally Gastrointestinal: Yes: Normal Bowel Sounds, Soft, Abdomen, Obese. No: Tenderness Edema: Yes Edema: LLE: 1+, RLE: 1+ Labs: CBC, BMP 09/13/17 06:50 09/13/17 06:50 INR, PTT INR 2.62 (0.82-1.09) H 09/07/17 08:00 Assessment/Plan Leukocytosis- GI v source Diverticulitis ? Obstructive uropathy Family reports pt with hx of "large" R kidney CT findings may be chronic in nature Repeat BC prelim no growth For follow up CT A/P today Antibiotic coverage broadened pending c/s Discussed with daughter at bedside
[2017-09-13] MEDS ORDERED: PT OWN MED DRAWER 7, Y5N ONE (10:08)
[2017-09-13] MEDS: NYSTATIN POWDER 100,000 UNITS/GM - 15 GM TOPICAL POWDER TP SCH (10:34)
[2017-09-13] MEDS: SPIRONOLACTONE 25 MG TABLET (FP) PO SCH (10:35)
[2017-09-13] MEDS: APIXABAN 2.5 MG TABLET PO SCH ×2 (10:35→23:52)
[2017-09-13] MEDS: METOPROLOL TARTRATE 50 MG TABLET (FP) PO SCH ×2 (10:35→22:29)
[2017-09-13] MEDS: FUROSEMIDE 40 MG/4 ML INJECTABLE VIAL IVPUSH SCH (10:35)
[2017-09-13] MEDS: POTASSIUM CHLORIDE TABS 20 MEQ TABLET.ER (FP) PO SCH (10:35)
[2017-09-13] MEDS: PANTOPRAZOLE 40 MG TABLET (FP) PO SCH (10:36)
--- NOTE | 2017-09-13 11:51 | PN ---
Progress Note, Physician History of Present Illness: Sitting in chair by the bedside. Comfortable. No acute events overnight. The patient reports no nausea, vomiting, or abdominal distention. Tolerating breakfast. Pain-free. CT scan reports worsening sigmoid diverticulitis with newly developed (compared to a CT on 09/06/17) pericolonic abscess. - Current Medication List Current Medications: Active Medications Apixaban (Eliquis -) 2.5 mg PO BID [facility] Last Admin: 09/13/17 10:35 Dose: 2.5 mg Atorvastatin Calcium (Lipitor -) 10 mg PO HS [facility] Last Admin: 09/12/17 22:06 Dose: 10 mg Benzocaine/Butamben/Tetracaine HCl (Cetacaine [place] -) 1 spray TP DAILY PRN PRN Reason: throat irritation Last Admin: 09/07/17 11:08 Dose: 1 spray Furosemide (Lasix Injection -) 40 mg IVPUSH DAILY [facility] Last Admin: 09/13/17 10:35 Dose: 40 mg Metronidazole (Flagyl 500mg Premixed Ivpb -) 500 mg in 100 mls @ 100 mls/hr IVPB Q8H-IV [facility] Last Admin: 09/13/17 11:27 Dose: 100 mls/hr Piperacillin Sod/Tazobactam (Sod 3.375 gm/ Dextrose) 50 mls @ 100 mls/hr IVPB Q8H-IV ANNA PRN Reason: Protocol Last Admin: 09/13/17 10:35 Dose: 100 mls/hr Metoprolol Tartrate (Lopressor -) 100 mg PO BID [facility] Last Admin: 09/13/17 10:35 Dose: 100 mg Metoprolol Tartrate (Lopressor Injection -) 5 mg IVPB Q6H PRN PRN Reason: TACHYCARDIA Nystatin (Nystop Powder -) 1 applic TP DAILY [facility] Last Admin: 09/13/17 10:34 Dose: 1 applic Pantoprazole Sodium (Protonix -) 40 mg PO DAILY [facility] Last Admin: 09/13/17 10:36 Dose: 40 mg Potassium Chloride (K-Dur -) 20 meq PO DAILY [facility] Last Admin: 09/13/17 10:35 Dose: 20 meq Spironolactone (Aldactone -) 25 mg PO DAILY [facility] Last Admin: 09/13/17 10:35 Dose: 25 mg - Objective Vital Signs: Vital Signs Temperature 98.4 F 09/13/17 09:00 Pulse Rate 86 09/13/17 09:00 Respiratory Rate 20 09/13/17 09:00 Blood Pressure 109/74 09/13/17 09:00 O2 Sat by Pulse Oximetry (%) 97 09/12/17 21:00 Constitutional: Yes: Well Nourished, No Distress, Calm Eyes: Yes: Conjunctiva Clear HENT: Yes: Atraumatic Neck: Yes: Supple Cardiovascular: Yes: Regular Rate and Rhythm Gastrointestinal: Yes: Normal Bowel Sounds, Soft Neurological: Yes: Alert, Oriented Labs: CBC, BMP 09/13/17 06:50 09/13/17 06:50 INR, PTT INR 2.62 (0.82-1.09) H 09/07/17 08:00 Laboratory Last Values WBC 15.1 K/mm3 (4.0-10.0) H 09/13/17 06:50 RBC 3.81 M/mm3 (3.60-5.2) 09/13/17 06:50 Hgb 11.3 GM/dL (10.7-15.3) 09/13/17 06:50 Hct 33.7 % (32.4-45.2) 09/13/17 06:50 MCV 88.5 fl (80-96) 09/13/17 06:50 MCH 29.6 pg (25.7-33.7) 09/13/17 06:50 MCHC 33.4 g/dl (32.0-36.0) 09/13/17 06:50 RDW 17.4 % (11.6-15.6) H 09/13/17 06:50 Plt Count 328 K/MM3 (134-434) 09/13/17 06:50 MPV 8.1 fl (7.5-11.1) 09/13/17 06:50 Neutrophils % 86.0 % (42.8-82.8) H 09/13/17 06:50 Lymphocytes % 8.1 % (8-40) 09/13/17 06:50 Monocytes % 3.7 % (3.8-10.2) L 09/13/17 06:50 Eosinophils % 1.8 % (0-4.5) 09/13/17 06:50 Basophils % 0.4 % (0-2.0) 09/13/17 06:50 PT with INR 29.60 SEC (9.7-13.0) H 09/07/17 08:00 INR 2.62 (0.82-1.09) H 09/07/17 08:00 PTT ([place] FS) 29.8 SECONDS (26.9-34.4) 09/13/17 06:50 Sodium 143 mmol/L (136-145) 09/13/17 06:50 Potassium 4.1 mmol/L (3.5-5.1) 09/13/17 06:50 Chloride 112 mmol/L (98-107) H 09/13/17 06:50 Carbon Dioxide 22 mmol/L (21-32) 09/13/17 06:50 Anion Gap 9 (8-16) 09/13/17 06:50 BUN 23 mg/dL (7-18) H 09/13/17 06:50 Creatinine 1.2 mg/dL (0.55-1.02) H 09/13/17 06:50 Creat Clearance w eGFR 42.70 (>60) 09/13/17 06:50 Random Glucose 120 mg/dL (74-106) H 09/13/17 06:50 Calcium 8.1 mg/dL (8.5-10.1) L 09/13/17 06:50 Phosphorus 2.2 mg/dL (2.5-4.9) L 09/13/17 06:50 Magnesium 1.5 mg/dL (1.8-2.4) L 09/13/17 06:50 Total Bilirubin 0.4 mg/dL (0.2-1.0) 09/13/17 06:50 AST 25 U/L (15-37) 09/13/17 06:50 ALT 14 U/L (12-78) 09/13/17 06:50 Alkaline Phosphatase 100 U/L (45-117) 09/13/17 06:50 Creatine Kinase 23 IU/L (26-192) L 09/06/17 19:41 Troponin I < 0.02 ng/ml (0.00-0.05) 09/06/17 19:41 C-Reactive Protein 5.1 MG/DL (0.00-0.3) H 09/13/17 06:50 Total Protein 5.2 g/dl (6.4-8.2) L 09/13/17 06:50 Albumin 2.0 g/dl (3.4-5.0) L 09/13/17 06:50 Lipase 87 U/L (73-393) 09/06/17 19:41 Urine Color Yellow 09/11/17 17:00 Urine Appearance Clear 09/11/17 17:00 Urine pH 5.0 (5.0-8.0) 09/11/17 17:00 Ur Specific [place] 1.008 (1.001-1.035) 09/11/17 17:00 Urine Protein Negative (NEGATIVE) 09/11/17 17:00 Urine Glucose (UA) Negative (NEGATIVE) 09/11/17 17:00 Urine Ketones Negative (NEGATIVE) 09/11/17 17:00 Urine Blood 1+ (NEGATIVE) H 09/11/17 17:00 Urine Nitrite Negative (NEGATIVE) 09/11/17 17:00 Urine Bilirubin Negative (<2.0 mg/dL) 09/11/17 17:00 Urine Urobilinogen Negative mg/dL (0.2-1.0) 09/11/17 17:00 Ur Leukocyte Esterase Negative (NEGATIVE) 09/11/17 17:00 Urine WBC (Auto) 1 /hpf (3-5) 09/11/17 17:00 Urine RBC (Auto) None /hpf (0-3) 09/11/17 17:00 Ur Epithelial Cells Rare /HPF (FEW) 09/11/17 17:00 Hyaline Casts 3 /lpf 09/11/17 17:00 Ur Random Sodium 9 MMOL/L 09/07/17 18:00 Ur Random Potassium 29.5 MMOL/L 09/07/17 18:00 Ur Random Chloride < 10 MMOL/L 09/07/17 18:00 Ur Random Urea Nitrogn 969 mg/dL 09/07/17 18:00 Stool Occult Blood Negative (NEGATIVE) 09/12/17 23:43 Blood Type A POSITIVE 09/07/17 08:45 Antibody Screen Negative 09/07/17 07:48 Problem List - Problems (1) Partial obstruction of small intestine Code(s): K56.600 - PARTIAL INTESTINAL OBSTRUCTION, UNSPECIFIED TO CAUSE (2) Diverticulitis Code(s): K57.92 - DVTRCLI OF INTEST, PART UNSP, W/O PERF OR ABSCESS W/O BLEED (3) Diverticulitis large intestine Code(s): K57.32 - DVTRCLI OF LG INT W/O PERFORATION OR ABSCESS W/O BLEEDING Assessment/Plan Acute sigmoid diverticulitis with pericolonic abscess with worsening leukocytosis while on Zosyn. Nontoxic appearing. No peritoneal signs on exam. Recommend bowel rest. IV fluid hydration. Close monitoring for worsening abdominal symptoms. Reconsult ID, Surgery. IR evaluation for possible abcess drainage if accessible, or large enough.
--- NOTE | 2017-09-13 14:18 | PN ---
Teaching Attending Note Name of Resident: Lou Suresh ATTENDING PHYSICIAN STATEMENT I saw and evaluated the patient. I reviewed the resident's note and discussed the case with the resident. I agree with the resident's findings and plan as documented. SUBJECTIVE: Patient is comfortable sitting in chair. She denies abdominal pain, nausea, vomiting, diarrhea. OBJECTIVE: Vital Signs Period Temp Pulse Resp BP Sys/Kendall Pulse Ox Last 24 Hr 97.6 F-98.4 F 82-91 18-20 103-111/55-74 97 HEART: Irregular LUNGS: Clear ABDOMEN: Obese, soft, non-tender, non-distended, normal BS EXTREMITIES: Trace edema Laboratory Results - last 24 hr 09/12/17 09/13/17 09/13/17 23:43 06:50 06:50 WBC RBC Hgb Hct MCV MCH MCHC RDW Plt Count MPV Neutrophils % Lymphocytes % Monocytes % Eosinophils % Basophils % PTT (Actin FS) 29.8 Sodium 143 Potassium 4.1 Chloride 112 H Carbon Dioxide 22 Anion Gap 9 BUN 23 H Creatinine 1.2 H Creat Clearance w eGFR 42.70 Random Glucose 120 H Calcium 8.1 L Phosphorus 2.2 L Magnesium 1.5 L Total Bilirubin 0.4 AST 25 ALT 14 Alkaline Phosphatase 100 C-Reactive Protein 5.1 H Total Protein 5.2 L Albumin 2.0 L Stool Occult Blood Negative 09/13/17 06:50 WBC 15.1 H RBC 3.81 Hgb 11.3 Hct 33.7 MCV 88.5 MCH 29.6 MCHC 33.4 RDW 17.4 H Plt Count 328 MPV 8.1 Neutrophils % 86.0 H Lymphocytes % 8.1 Monocytes % 3.7 L Eosinophils % 1.8 Basophils % 0.4 PTT (Actin FS) Sodium Potassium Chloride Carbon Dioxide Anion Gap BUN Creatinine Creat Clearance w eGFR Random Glucose Calcium Phosphorus Magnesium Total Bilirubin AST ALT Alkaline Phosphatase C-Reactive Protein Total Protein Albumin Stool Occult Blood Current Medications Generic Name Dose Route Start Last Admin Trade Name Freq PRN Reason Stop Dose Admin Apixaban 2.5 mg 09/10/17 10:21 09/13/17 10:35 Eliquis - PO 2.5 mg BID ANNA Administration Atorvastatin Calcium 10 mg 09/07/17 22:00 09/12/17 22:06 Lipitor - PO 10 mg HS ANNA Administration Benzocaine/Butamben/Tetracaine HCl 1 spray 09/07/17 10:15 09/07/17 11:08 Cetacaine [place] - TP 1 spray DAILY PRN Administration throat irritation Furosemide 40 mg 09/12/17 14:00 09/13/17 10:35 Lasix Injection - IVPUSH 40 mg DAILY ANNA Administration Metronidazole 500 mg in 100 mls @ 100 mls/hr 09/07/17 10:00 09/13/17 11:27 Flagyl 500mg Premixed Ivpb - IVPB 100 mls/hr Q8H-IV ANNA Administration Piperacillin Sod/Tazobactam 50 mls @ 100 mls/hr 09/11/17 21:30 09/13/17 10:35 Sod 3.375 gm/ Dextrose IVPB 100 mls/hr Q8H-IV ANNA Administration Protocol Metoprolol Tartrate 100 mg 09/09/17 22:00 09/13/17 10:35 Lopressor - PO 100 mg BID ANNA Administration Metoprolol Tartrate 5 mg 09/09/17 15:40 Lopressor Injection - IVPB Q6H PRN TACHYCARDIA Nystatin 1 applic 09/07/17 10:00 09/13/17 10:34 Nystop Powder - TP 1 applic DAILY ANNA Administration Pantoprazole Sodium 40 mg 09/10/17 10:00 09/13/17 10:36 Protonix - PO 40 mg DAILY ANNA Administration Potassium Chloride 20 meq 09/07/17 10:00 09/13/17 10:35 K-Dur - PO 20 meq DAILY ANNA Administration Spironolactone 25 mg 09/10/17 10:00 09/13/17 10:35 Aldactone - PO 25 mg DAILY ANNA Administration ASSESSMENT AND PLAN: This is an 86 year old woman with a history of atrial fib, epilepsy, HTN, diverticulitis who presented to the ED with vomiting and diarrhea. 1. Partial SBO - Resolved 2. Acute diverticulitis - Continue Zosyn, Flagyl - CT shows worsening sigmoid diverticulitis with pericolic abscess - IR evaluation for possible drainage 3. Hypokalemia - Resolved 4. Hypophosphatemia - Continue to supplement phosphorus 5. Hypernatremia - Resolved 6. Permanent atrial fibrillation - Continue Lopressor, Eliquis - Cardizem on hold 7. Acute kidney injury - Improving - Lisinopril on hold 8. Stage 3 CKD 9. Hyperlipidemia - Continue Lipitor 10. Chronic diastolic heart failure, pulmonary HTN - Continue Lasix, Aldactone 11. HTN - Continue Lopressor, Lasix, Aldactone - Cardizem, Lisinopril on hold
--- NOTE | 2017-09-13 14:40 | PN ---
Physical Exam: SUBJECTIVE: Patient seen and examined. No new c/o this am. Had been tolerating orally. White count still trending up. Pending CT reading. OBJECTIVE: Vital Signs Period Temp Pulse Resp BP Sys/Kendall Pulse Ox Last 24 Hr 97.6 F-98.4 F 82-91 18-20 103-111/55-74 97 Vital Signs Temp 97.6 F 09/13/17 14:03 Pulse 82 09/13/17 14:03 Resp 20 09/13/17 09:00 BP 103/67 09/13/17 14:03 Pulse Ox 96 09/13/17 09:00 Intake & Output 09/12/17 09/13/17 09/13/17 23:59 11:59 23:59 Intake Total 1350 475 300 Balance 1350 475 300 Weight 87.997 kg Intake: IVPB 300 150 Oral 1050 325 300 Other: Voiding Method Diaper Toilet # Unmeasured Voids Void 2 1 1 Bowel Movement Yes Yes # Bowel Movements 1 1 Weight Measurement Method Built in [facility] GENERAL: The patient is awake, alert, and fully oriented, in no acute distress. ENT: moist mucous membranes. NECK: supple. LUNGS: Breath sounds equal, clear to auscultation bilaterally, HEART: Regular rate and rhythm, S1, S2 ABDOMEN: Soft, nontender, obese, reduced bowel sounds, EXTREMITIES: 2+ pulses, warm, well-perfused, no edema. NEUROLOGICAL: Cranial nerves II through XII grossly intact. Normal speech, gait not observed. SKIN: Warm, dry, normal turgor, no rashes or lesions noted Laboratory Results - last 24 hr 09/12/17 09/13/17 09/13/17 23:43 06:50 06:50 WBC RBC Hgb Hct MCV MCH MCHC RDW Plt Count MPV Neutrophils % Lymphocytes % Monocytes % Eosinophils % Basophils % PTT (Actin FS) 29.8 Sodium 143 Potassium 4.1 Chloride 112 H Carbon Dioxide 22 Anion Gap 9 BUN 23 H Creatinine 1.2 H Creat Clearance w eGFR 42.70 Random Glucose 120 H Calcium 8.1 L Phosphorus 2.2 L Magnesium 1.5 L Total Bilirubin 0.4 AST 25 ALT 14 Alkaline Phosphatase 100 C-Reactive Protein 5.1 H Total Protein 5.2 L Albumin 2.0 L Stool Occult Blood Negative 09/13/17 06:50 WBC 15.1 H RBC 3.81 Hgb 11.3 Hct 33.7 MCV 88.5 MCH 29.6 MCHC 33.4 RDW 17.4 H Plt Count 328 MPV 8.1 Neutrophils % 86.0 H Lymphocytes % 8.1 Monocytes % 3.7 L Eosinophils % 1.8 Basophils % 0.4 PTT (Actin FS) Sodium Potassium Chloride Carbon Dioxide Anion Gap BUN Creatinine Creat Clearance w eGFR Random Glucose Calcium Phosphorus Magnesium Total Bilirubin AST ALT Alkaline Phosphatase C-Reactive Protein Total Protein Albumin Stool Occult Blood Active Medications Generic Name Dose Route Start Last Admin Trade Name Freq PRN Reason Stop Dose Admin Apixaban 2.5 mg 09/10/17 10:21 09/13/17 10:35 Eliquis - PO 2.5 mg BID NANA Administration Atorvastatin Calcium 10 mg 09/07/17 22:00 09/12/17 22:06 Lipitor - PO 10 mg HS ANNA Administration Benzocaine/Butamben/Tetracaine HCl 1 spray 09/07/17 10:15 09/07/17 11:08 Cetacaine [place] - TP 1 spray DAILY PRN Administration throat irritation Metronidazole 500 mg in 100 mls @ 100 mls/hr 09/07/17 10:00 09/13/17 11:27 Flagyl 500mg Premixed Ivpb - IVPB 100 mls/hr Q8H-IV ANNA Administration Piperacillin Sod/Tazobactam 50 mls @ 100 mls/hr 09/11/17 21:30 09/13/17 10:35 Sod 3.375 gm/ Dextrose IVPB 100 mls/hr Q8H-IV ANNA Administration Protocol Sodium Chloride 1,000 mls @ 75 mls/hr 09/13/17 14:45 Normal Saline - IV ASDIR ANNA Metoprolol Tartrate 100 mg 09/09/17 22:00 09/13/17 10:35 Lopressor - PO 100 mg BID ANNA Administration Metoprolol Tartrate 5 mg 09/09/17 15:40 Lopressor Injection - IVPB Q6H PRN TACHYCARDIA Nystatin 1 applic 09/07/17 10:00 09/13/17 10:34 Nystop Powder - TP 1 applic DAILY ANNA Administration Pantoprazole Sodium 40 mg 09/10/17 10:00 09/13/17 10:36 Protonix - PO 40 mg DAILY ANNA Administration Potassium Chloride 20 meq 09/07/17 10:00 09/13/17 10:35 K-Dur - PO 20 meq DAILY ANNA Administration Spironolactone 25 mg 09/10/17 10:00 09/13/17 10:35 Aldactone - PO 25 mg DAILY ANNA Administration ASSESSMENT/PLAN: Pt is an 86 yo F with a PMHx of atrial fib, epilepsy, HTN, diverticulitis who presented with vomiting and diarrhea and found to have diverticulitis. 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 No hydronephrosis. # Left adrenal mass fat containing myelolipoma [id number] on Ct scan # Cholelithiasis multiple on CT of abdomen. # Acute Partial SBO resolved, s/p NGT , was on soft diet Post CT scan Now NPO IV fluids normal saline # Acute kidney injury on stage [address] Rodriguez on board monitor electrolytes an #Afib: Permanent atrial fibrillation Cont Lopressor, Cont Eliquis , Cardizem on hold # Hyperlipidemia continue statin # Chronic diastolic heart failure/pulmonary HTN, Pt has been on Lasix, Cont Aldactone Monitor for overload with Normal saline @75/hr # HTN Cont Lopressor, Hold Lisinopril Bleeding; Noted in diaper LIZZ- negative for blood Appears to be local around labia majora Could be from vigorous wiping or sensitivity Add neosporin ointment Monitor #Physical therapy DvT Px: Eliquis May need short term rehab Visit type - Emergency Visit Emergency Visit: Yes ED Registration Date: 09/07/17 Care time: The patient presented to the Emergency Department on the above date and was hospitalized for further evaluation of their emergent condition. - New Patient This patient is new to me today: Yes Date on this admission: 09/13/17 - Critical Care Critical Care patient: No - Discharge Referral Referred to [facility] Med P.C.: No
[2017-09-13] MEDS ORDERED: SODIUM CHLORIDE 1,000 ML IV SCH (14:45)
--- NOTE | 2017-09-13 14:48 | PN ---
Progress Note, Physician History of Present Illness: Pt seen and examined at bedside. She denies dysuria. She denies shortness of breath. She denies fevers or chills. - Current Medication List Current Medications: Active Medications Apixaban (Eliquis -) 2.5 mg PO BID [facility] Last Admin: 09/13/17 10:35 Dose: 2.5 mg Atorvastatin Calcium (Lipitor -) 10 mg PO HS [facility] Last Admin: 09/12/17 22:06 Dose: 10 mg Benzocaine/Butamben/Tetracaine HCl (Cetacaine [place] -) 1 spray TP DAILY PRN PRN Reason: throat irritation Last Admin: 09/07/17 11:08 Dose: 1 spray Metronidazole (Flagyl 500mg Premixed Ivpb -) 500 mg in 100 mls @ 100 mls/hr IVPB Q8H-IV ANNA Last Admin: 09/13/17 11:27 Dose: 100 mls/hr Piperacillin Sod/Tazobactam (Sod 3.375 gm/ Dextrose) 50 mls @ 100 mls/hr IVPB Q8H-IV ANNA PRN Reason: Protocol Last Admin: 09/13/17 10:35 Dose: 100 mls/hr Sodium Chloride (Normal Saline -) 1,000 mls @ 75 mls/hr IV ASDIR ANNA Metoprolol Tartrate (Lopressor -) 100 mg PO BID [facility] Last Admin: 09/13/17 10:35 Dose: 100 mg Metoprolol Tartrate (Lopressor Injection -) 5 mg IVPB Q6H PRN PRN Reason: TACHYCARDIA Nystatin (Nystop Powder -) 1 applic TP DAILY [facility] Last Admin: 09/13/17 10:34 Dose: 1 applic Pantoprazole Sodium (Protonix -) 40 mg PO DAILY [facility] Last Admin: 09/13/17 10:36 Dose: 40 mg Potassium Chloride (K-Dur -) 20 meq PO DAILY ANNA Last Admin: 09/13/17 10:35 Dose: 20 meq Spironolactone (Aldactone -) 25 mg PO DAILY [facility] Last Admin: 09/13/17 10:35 Dose: 25 mg - Objective Vital Signs: Vital Signs Temperature 97.6 F 09/13/17 14:03 Pulse Rate 82 09/13/17 14:03 Respiratory Rate 20 09/13/17 09:00 Blood Pressure 103/67 09/13/17 14:03 O2 Sat by Pulse Oximetry (%) 97 09/12/17 21:00 Constitutional: Yes: Calm Eyes: Yes: Conjunctiva Clear HENT: Yes: Atraumatic Neck: Yes: Supple Cardiovascular: Yes: S1, S2 Respiratory: Yes: CTA Bilaterally Gastrointestinal: Yes: Soft, Abdomen, Obese Genitourinary: Yes: WNL Musculoskeletal: Yes: WNL Edema: LLE: Trace, RLE: Trace Neurological: Yes: Oriented Psychiatric: Yes: Oriented Labs: CBC, BMP 09/13/17 06:50 09/13/17 06:50 INR, PTT INR 2.62 (0.82-1.09) H 09/07/17 08:00 Problem List - Problems (1) JAROD (acute kidney injury) Code(s): N17.9 - ACUTE KIDNEY FAILURE, UNSPECIFIED (2) Diverticulitis Code(s): K57.92 - DVTRCLI OF INTEST, PART UNSP, W/O PERF OR ABSCESS W/O BLEED (3) Partial obstruction of small intestine Code(s): K56.600 - PARTIAL INTESTINAL OBSTRUCTION, UNSPECIFIED TO CAUSE Assessment/Plan Current Medications Generic Name Dose Route Start Last Admin Trade Name Freq PRN Reason Stop Dose Admin Apixaban 2.5 mg 09/10/17 10:21 09/13/17 10:35 Eliquis - PO 2.5 mg BID ANNA Administration Atorvastatin Calcium 10 mg 09/07/17 22:00 09/12/17 22:06 Lipitor - PO 10 mg HS ANNA Administration Benzocaine/Butamben/Tetracaine HCl 1 spray 09/07/17 10:15 09/07/17 11:08 Cetacaine [place] - TP 1 spray DAILY PRN Administration throat irritation Metronidazole 500 mg in 100 mls @ 100 mls/hr 09/07/17 10:00 09/13/17 11:27 Flagyl 500mg Premixed Ivpb - IVPB 100 mls/hr Q8H-IV ANNA Administration Piperacillin Sod/Tazobactam 50 mls @ 100 mls/hr 09/11/17 21:30 09/13/17 10:35 Sod 3.375 gm/ Dextrose IVPB 100 mls/hr Q8H-IV ANNA Administration Protocol Sodium Chloride 1,000 mls @ 75 mls/hr 09/13/17 14:45 Normal Saline - IV ASDIR ANNA Metoprolol Tartrate 100 mg 09/09/17 22:00 09/13/17 10:35 Lopressor - PO 100 mg BID ANNA Administration Metoprolol Tartrate 5 mg 09/09/17 15:40 Lopressor Injection - IVPB Q6H PRN TACHYCARDIA Nystatin 1 applic 09/07/17 10:00 09/13/17 10:34 Nystop Powder - TP 1 applic DAILY ANNA Administration Pantoprazole Sodium 40 mg 09/10/17 10:00 09/13/17 10:36 Protonix - PO 40 mg DAILY ANNA Administration Potassium Chloride 20 meq 09/07/17 10:00 09/13/17 10:35 K-Dur - PO 20 meq DAILY ANNA Administration Spironolactone 25 mg 09/10/17 10:00 09/13/17 10:35 Aldactone - PO 25 mg DAILY ANNA Administration Impression 1. JAROD 2. a-fib 3. CHF 4. pulm HTN 5. CAD 6. partial sbo Plan - renal function is slowly improving - repeat labs in am - ct scan reviewed - discussed with family - monitor volume status closely - cardio follow up - monitor potassium closely as she is on k-dur and aldactone
[2017-09-13] MEDS ORDERED: MAGNESIUM SULF 50% (8.12 MEQ/2 ML-1 GM VIAL) IVPB ONE (21:31)
--- NOTE | 2017-09-13 21:51 | HOSP ---
Subjective - Review of Symptoms Subjective: As per nurse pt. 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
[2017-09-13] MEDS: SODIUM CHLORIDE 1,000 ML IV SCH (22:27)
[2017-09-13] MEDS: NEOMYCIN/POLYMYXIN/BACITRACIN (TRIPLE ANTIBIOTIC) 28 GM OINTMENT TP SCH (22:28)
[2017-09-13] MEDS: ATORVASTATIN CA 10 MG TABLET (FP) PO SCH (22:30)
[2017-09-13 22:34] LABS: HEMATOCRIT 33.4 % (32.4-45.2); HEMOGLOBIN 11.2 GM/dL (10.7-15.3); MCH 29.8 pg (25.7-33.7); MCHC 33.6 g/dl (32.0-36.0); MEAN CELL VOLUME 88.6 fl (80-96); PLATELET COUNT 342 K/MM3 (134-434); RBC 3.77 M/mm3 (3.60-5.2); RDW 17.9 % (11.6-15.6); WHITE BLOOD COUNT 14.1 K/mm3 (4.0-10.0)
--- NOTE | 2017-09-13 23:30 | PN ---
Progress Note (short form) - Note Progress Note: S: 86 year old white female with history of permanent atrial fibrillation, hypertension, hypercholesterolemia, coronary artery disease, status post remote postoperative myocardial infarction, status post PCI, status post pulmonary embolism following surgery. Patient has had elevated WBC and is being investigated, no symptoms reported, called to the floor because there was apparent blood stains that were attributed to the vagina and the house staff ordered to hold Eliquis. Family members are concerned about the risks of holding the medication. Active Medications Apixaban (Eliquis -) 2.5 mg PO BID [facility] Last Admin: 09/13/17 10:35 Dose: 2.5 mg Atorvastatin Calcium (Lipitor -) 10 mg PO HS [facility] Last Admin: 09/13/17 22:30 Dose: 10 mg Benzocaine/Butamben/Tetracaine HCl (Cetacaine [place] -) 1 spray TP DAILY PRN PRN Reason: throat irritation Last Admin: 09/07/17 11:08 Dose: 1 spray Metronidazole (Flagyl 500mg Premixed Ivpb -) 500 mg in 100 mls @ 100 mls/hr IVPB Q8H-IV [facility] Last Admin: 09/13/17 18:19 Dose: 100 mls/hr Piperacillin Sod/Tazobactam (Sod 3.375 gm/ Dextrose) 50 mls @ 100 mls/hr IVPB Q8H-IV ANNA PRN Reason: Protocol Last Admin: 09/13/17 17:34 Dose: 100 mls/hr Sodium Chloride (Normal Saline -) 1,000 mls @ 50 mls/hr IV ASDIR [facility] Last Admin: 09/13/17 22:27 Dose: 50 mls/hr Metoprolol Tartrate (Lopressor -) 100 mg PO BID [facility] Last Admin: 09/13/17 22:29 Dose: Not Given Metoprolol Tartrate (Lopressor Injection -) 5 mg IVPB Q6H PRN PRN Reason: TACHYCARDIA Neomycin/Polymyxin/Bacitracin (Neosporin Topical Ointment -) 1 applic TP BID [facility] Last Admin: 09/13/17 22:28 Dose: 1 applic Nystatin (Nystop Powder -) 1 applic TP DAILY [facility] Last Admin: 09/13/17 10:34 Dose: 1 applic Pantoprazole Sodium (Protonix -) 40 mg PO DAILY [facility] Last Admin: 05/07/18 10:36 Dose: 40 mg Spironolactone (Aldactone -) 25 mg PO DAILY ANNA Last Admin: 09/13/17 10:35 Dose: 25 mg O: 86 year old female was in no acute distress, no pallor, cyanosis, clubbing, or jaundice. Last Vital Signs Temp Pulse Resp BP Pulse Ox 98.2 F 84 19 89/38 96 09/13/17 22:00 09/13/17 18:00 09/13/17 22:00 09/13/17 22:00 09/13/17 09:00 Neck: Supple, no JVD, negative HJR, carotids were equal and upstrokes were normal, no thyromegaly appreciated. Heart: PMI was in the 5th intercostal space, no heaves or thrills, S1 variable, S2 were normal. No murmurs or gallops were appreciated. Lungs: Clear on auscultation bilaterally. Abdomen: Soft, nontender, mildly distended no hepatosplenomegaly appreciated. CBC, BMP 09/13/17 22:15 09/13/17 06:50 IMPRESSION: 1. CAD, s/p DC, s/p PCI, stable angina pectoris. 2. Permanent atrial fibrillation. 3. Hypertension. 4. Intestinal obstruction, resolved. 5. Possible vaginal bleed. RECOMMENDATION: 1. Physical evaluation to exclude vaginal bleed. 2. Resume Eliquis if there is no bleeding. 3. Close f/u of CBC. 4. MAIL DELIVERER consult if necessary.
[2017-09-14] MEDS ORDERED: PIPERACILLIN/TAZOBACTAM 3.375 GM VIAL IVPB ONE ×3 (02:34→17:20)
[2017-09-14] MEDS ORDERED: DEXTROSE 5%-WATER - 50 ML IVPB ONE ×3 (02:35→17:20)
[2017-09-14] MEDS: PIPERACILLIN/TAZOB 3.375 GM 3.375 GM in DEXTROSE 5%-WATER - 50 ML IVPB SCH ×3 (02:39→17:48)
[2017-09-14 07:55] LABS: BASO % 0.4 % (0-2.0); EOS % 1.8 % (0-4.5); HEMATOCRIT 32.5 % (32.4-45.2); HEMOGLOBIN 10.8 GM/dL (10.7-15.3); LYMPH % 8.4 % (8-40); MCH 29.7 pg (25.7-33.7); MCHC 33.3 g/dl (32.0-36.0); MEAN CELL VOLUME 89.1 fl (80-96); MEAN PLT VOLUME 8.1 fl (7.5-11.1); MONO % 4.6 % (3.8-10.2); NEUT % 84.8 % (42.8-82.8); PLATELET COUNT 339 K/MM3 (134-434); RBC 3.65 M/mm3 (3.60-5.2); RDW 17.5 % (11.6-15.6); WHITE BLOOD COUNT 14.6 K/mm3 (4.0-10.0)
[2017-09-14 07:59] LABS: INR 1.49 (0.82-1.09); PROTHROMBIN TIME (PATIENT) 16.8 SEC (9.7-13.0)
[2017-09-14 08:07] LABS: CHLORIDE 113 mmol/L (98-107); POTASSIUM 4.2 mmol/L (3.5-5.1); SODIUM 142 mmol/L (136-145)
[2017-09-14 08:39] LABS: ALBUMIN 1.9 g/dl (3.4-5.0); ALK PHOS 95 U/L (45-117); ANION GAP 8 (8-16); BILIRUBIN,TOTAL 0.5 mg/dL (0.2-1.0); BLOOD UREA NITROGEN 19 mg/dL (7-18); CALCIUM 7.8 mg/dL (8.5-10.1); CO2 21 mmol/L (21-32); CREATININE 1.1 mg/dL (0.55-1.02); GLUCOSE,RANDOM 98 mg/dL (74-106); MAGNESIUM 2.1 mg/dL (1.8-2.4); SGOT/AST 20 U/L (15-37); SGPT/ALT 12 U/L (12-78)
[2017-09-14] MEDS ORDERED: PT OWN MED DRAWER 7, Y5N ONE ×2 (10:20→21:00)
[2017-09-14] MEDS: SPIRONOLACTONE 25 MG TABLET (FP) PO SCH (10:27)
[2017-09-14] MEDS: METOPROLOL TARTRATE 50 MG TABLET (FP) PO SCH ×3 (10:27→21:53)
[2017-09-14] MEDS: APIXABAN 2.5 MG TABLET PO SCH ×2 (10:27→21:44)
[2017-09-14] MEDS: PANTOPRAZOLE 40 MG TABLET (FP) PO SCH (10:27)
[2017-09-14] MEDS: NYSTATIN POWDER 100,000 UNITS/GM - 15 GM TOPICAL POWDER TP SCH (10:33)
[2017-09-14] MEDS: NEOMYCIN/POLYMYXIN/BACITRACIN (TRIPLE ANTIBIOTIC) 28 GM OINTMENT TP SCH ×2 (10:33→21:54)
--- NOTE | 2017-09-14 14:06 | PN ---
Progress Note, Physician History of Present Illness: No acute events overnight. Clinically the same. Comfortable. Pain- free. Daughter at bedside. - Current Medication List Current Medications: Active Medications Apixaban (Eliquis -) 2.5 mg PO BID [facility] Last Admin: 09/14/17 10:27 Dose: 2.5 mg Atorvastatin Calcium (Lipitor -) 10 mg PO HS [facility] Last Admin: 09/13/17 22:30 Dose: 10 mg Benzocaine/Butamben/Tetracaine HCl (Cetacaine [place] -) 1 spray TP DAILY PRN PRN Reason: throat irritation Last Admin: 09/07/17 11:08 Dose: 1 spray Piperacillin Sod/Tazobactam (Sod 3.375 gm/ Dextrose) 50 mls @ 100 mls/hr IVPB Q8H-IV ANNA PRN Reason: Protocol Last Admin: 09/14/17 10:27 Dose: 100 mls/hr Sodium Chloride (Normal Saline -) 1,000 mls @ 50 mls/hr IV ASDIR [facility] Last Admin: 09/13/17 22:27 Dose: 50 mls/hr Metoprolol Tartrate (Lopressor -) 100 mg PO BID [facility] Last Admin: 09/14/17 10:27 Dose: 100 mg Metoprolol Tartrate (Lopressor Injection -) 5 mg IVPB Q6H PRN PRN Reason: TACHYCARDIA Neomycin/Polymyxin/Bacitracin (Neosporin Topical Ointment -) 1 applic TP BID [facility] Last Admin: 09/14/17 10:33 Dose: 1 applic Nystatin (Nystop Powder -) 1 applic TP DAILY [facility] Last Admin: 09/14/17 10:33 Dose: 1 applic Pantoprazole Sodium (Protonix -) 40 mg PO DAILY [facility] Last Admin: 09/14/17 10:27 Dose: 40 mg Spironolactone (Aldactone -) 25 mg PO DAILY [facility] Last Admin: 09/14/17 10:27 Dose: 25 mg - Objective Vital Signs: Vital Signs Temperature 98.8 F 09/14/17 09:00 Pulse Rate 88 09/14/17 09:00 Respiratory Rate 20 09/14/17 09:00 Blood Pressure 104/57 09/14/17 09:00 O2 Sat by Pulse Oximetry (%) 96 09/13/17 21:00 Constitutional: Yes: Well Nourished, No Distress, Calm Eyes: Yes: Conjunctiva Clear HENT: Yes: Atraumatic Neck: Yes: Supple Cardiovascular: Yes: Regular Rate and Rhythm Respiratory: Yes: Regular Labs: CBC, BMP 09/14/17 06:45 09/14/17 06:45 INR, PTT INR 1.49 (0.82-1.09) H D 09/14/17 06:45 Problem List - Problems (1) Partial obstruction of small intestine Code(s): K56.600 - PARTIAL INTESTINAL OBSTRUCTION, UNSPECIFIED TO CAUSE (2) Diverticulitis Code(s): K57.92 - DVTRCLI OF INTEST, PART UNSP, W/O PERF OR ABSCESS W/O BLEED (3) Diverticulitis large intestine Code(s): K57.32 - DVTRCLI OF LG INT W/O PERFORATION OR ABSCESS W/O BLEEDING Assessment/Plan Diverticulitis with pericolonic abscess. Asymptomatic today. Leukocytosis slightly better. Continue current care.
--- NOTE | 2017-09-14 15:33 | PN ---
Progress Note, Physician History of Present Illness: Pt seen and examined at bedside. She is awake and appears comfortable. She denies shortness of breath. She denies abdominal pain. She denies fevers or chills. - Current Medication List Current Medications: Active Medications Apixaban (Eliquis -) 2.5 mg PO BID [facility] Last Admin: 09/14/17 10:27 Dose: 2.5 mg Atorvastatin Calcium (Lipitor -) 10 mg PO HS [facility] Last Admin: 09/13/17 22:30 Dose: 10 mg Benzocaine/Butamben/Tetracaine HCl (Cetacaine [place] -) 1 spray TP DAILY PRN PRN Reason: throat irritation Last Admin: 09/07/17 11:08 Dose: 1 spray Piperacillin Sod/Tazobactam (Sod 3.375 gm/ Dextrose) 50 mls @ 100 mls/hr IVPB Q8H-IV ANNA PRN Reason: Protocol Last Admin: 09/14/17 10:27 Dose: 100 mls/hr Sodium Chloride (Normal Saline -) 1,000 mls @ 50 mls/hr IV ASDIR [facility] Last Admin: 09/13/17 22:27 Dose: 50 mls/hr Metoprolol Tartrate (Lopressor -) 100 mg PO BID [facility] Last Admin: 09/14/17 10:27 Dose: 100 mg Metoprolol Tartrate (Lopressor Injection -) 5 mg IVPB Q6H PRN PRN Reason: TACHYCARDIA Neomycin/Polymyxin/Bacitracin (Neosporin Topical Ointment -) 1 applic TP BID [facility] Last Admin: 09/14/17 10:33 Dose: 1 applic Nystatin (Nystop Powder -) 1 applic TP DAILY [facility] Last Admin: 09/14/17 10:33 Dose: 1 applic Pantoprazole Sodium (Protonix -) 40 mg PO DAILY [facility] Last Admin: 09/14/17 10:27 Dose: 40 mg Spironolactone (Aldactone -) 25 mg PO DAILY [facility] Last Admin: 09/14/17 10:27 Dose: 25 mg - Objective Vital Signs: Vital Signs Temperature 97.7 F 09/14/17 14:11 Pulse Rate 79 09/14/17 14:11 Respiratory Rate 20 09/14/17 09:00 Blood Pressure 93/58 09/14/17 14:11 O2 Sat by Pulse Oximetry (%) 96 09/13/17 21:00 Constitutional: Yes: Calm Eyes: Yes: Conjunctiva Clear HENT: Yes: Atraumatic Neck: Yes: Supple Cardiovascular: Yes: S1, S2 Respiratory: Yes: CTA Bilaterally Gastrointestinal: Yes: Soft, Abdomen, Obese Genitourinary: Yes: WNL Musculoskeletal: Yes: WNL Edema: Yes Edema: LLE: 1+, RLE: 1+ Neurological: Yes: Oriented Psychiatric: Yes: Oriented Labs: CBC, BMP 09/14/17 06:45 09/14/17 06:45 INR, PTT INR 1.49 (0.82-1.09) H D 09/14/17 06:45 Problem List - Problems (1) JAROD (acute kidney injury) Code(s): N17.9 - ACUTE KIDNEY FAILURE, UNSPECIFIED (2) Diverticulitis Code(s): K57.92 - DVTRCLI OF INTEST, PART UNSP, W/O PERF OR ABSCESS W/O BLEED (3) Partial obstruction of small intestine Code(s): K56.600 - PARTIAL INTESTINAL OBSTRUCTION, UNSPECIFIED TO CAUSE Assessment/Plan Current Medications Generic Name Dose Route Start Last Admin Trade Name Freq PRN Reason Stop Dose Admin Apixaban 2.5 mg 09/10/17 10:21 09/14/17 10:27 Eliquis - PO 2.5 mg BID ANNA Administration Atorvastatin Calcium 10 mg 09/07/17 22:00 09/13/17 22:30 Lipitor - PO 10 mg HS ANNA Administration Benzocaine/Butamben/Tetracaine HCl 1 spray 09/07/17 10:15 09/07/17 11:08 Cetacaine [place] - TP 1 spray DAILY PRN Administration throat irritation Piperacillin Sod/Tazobactam 50 mls @ 100 mls/hr 09/11/17 21:30 09/14/17 10:27 Sod 3.375 gm/ Dextrose IVPB 100 mls/hr Q8H-IV ANNA Administration Protocol Sodium Chloride 1,000 mls @ 50 mls/hr 09/13/17 21:27 09/13/17 22:27 Normal Saline - IV 50 mls/hr ASDIR ANNA Administration Metoprolol Tartrate 100 mg 09/09/17 22:00 09/14/17 10:27 Lopressor - PO 100 mg BID ANNA Administration Metoprolol Tartrate 5 mg 09/09/17 15:40 Lopressor Injection - IVPB Q6H PRN TACHYCARDIA Neomycin/Polymyxin/Bacitracin 1 applic 09/13/17 22:00 09/14/17 10:33 Neosporin Topical Ointment - TP 1 applic BID ANNA Administration Nystatin 1 applic 09/07/17 10:00 09/14/17 10:33 Nystop Powder - TP 1 applic DAILY ANNA Administration Pantoprazole Sodium 40 mg 09/10/17 10:00 09/14/17 10:27 Protonix - PO 40 mg DAILY ANNA Administration Spironolactone 25 mg 09/10/17 10:00 09/14/17 10:27 Aldactone - PO 25 mg DAILY ANNA Administration Impression 1. JAROD 2. a-fib 3. CHF 4. pulm HTN 5. CAD 6. partial sbo 7. dilated right renal pelvis Plan - creatinine is improving - repeat labs in am - cont spironolactone - pt is npo, lasix was held - check lytes daily - consider urology eval - discussed with family - monitor volume status closely - cardio follow up - monitor potassium closely as she is on k-dur and aldactone
--- NOTE | 2017-09-14 16:11 | PN ---
Teaching Attending Note Name of Resident: Lou Suresh ATTENDING PHYSICIAN STATEMENT I saw and evaluated the patient. I reviewed the resident's note and discussed the case with the resident. I agree with the resident's findings and plan as documented with exceptions below. SUBJECTIVE: patient seen and examined. no nausea, vomiting, abdominal pain, or dizziness. Having BM non diarrheal. OBJECTIVE: Vital Signs Period Temp Pulse Resp BP Sys/Kendall Pulse Ox Last 24 Hr 97.7 F-98.8 F 79-88 18-21 89-113/38-61 96 Intake & Output 09/11/17 09/12/17 09/13/17 09/14/17 23:59 23:59 23:59 23:59 Intake Total 800 1550 1525 220 Balance 800 1550 1525 220 Weight 189 lb 9 oz 193 lb 3 oz 194 lb 195 lb 3 oz General: sitting in bed in no acute distress Abdomen: soft, obese, NT throughout, ND otherwise, positive bowel sounds extremities: no edema Chest: good air entry, no rales or wheezing Home Medication List Medication Instructions Recorded Confirmed Type Aspirin 81 mg PO DAILY 09/06/17 09/06/17 History Diltiazem Cd [Cardizem Cd -] 180 mg PO DAILY 09/06/17 09/06/17 History Furosemide [Lasix -] 40 mg PO HS 09/06/17 09/06/17 History Furosemide [Lasix -] 80 mg PO AM 09/06/17 09/06/17 History Metoprolol Succinate [Toprol Xl -] 100 mg PO BID 09/06/17 09/06/17 History Potassium Chloride [K-Dur -] 20 meq PO DAILY 09/06/17 09/06/17 History Pravastatin Sodium [Pravachol] 40 mg PO DAILY 09/06/17 09/06/17 History Spironolactone [Aldactone] 25 mg PO DAILY 09/06/17 09/06/17 History Apixaban [Eliquis] 5 mg PO BID 09/07/17 09/07/17 History Active Medications Generic Name Dose Route Start Last Admin Trade Name Freq PRN Reason Stop Dose Admin Apixaban 2.5 mg 09/10/17 10:21 09/14/17 10:27 Eliquis - PO 2.5 mg BID ANNA Administration Atorvastatin Calcium 10 mg 09/07/17 22:00 09/13/17 22:30 Lipitor - PO 10 mg HS ANNA Administration Benzocaine/Butamben/Tetracaine HCl 1 spray 09/07/17 10:15 09/07/17 11:08 Cetacaine [place] - TP 1 spray DAILY PRN Administration throat irritation Piperacillin Sod/Tazobactam 50 mls @ 100 mls/hr 09/11/17 21:30 09/14/17 10:27 Sod 3.375 gm/ Dextrose IVPB 100 mls/hr Q8H-IV ANNA Administration Protocol Sodium Chloride 1,000 mls @ 50 mls/hr 09/13/17 21:27 09/13/17 22:27 Normal Saline - IV 50 mls/hr ASDIR ANNA Administration Metoprolol Tartrate 100 mg 09/09/17 22:00 09/14/17 10:27 Lopressor - PO 100 mg BID ANNA Administration Metoprolol Tartrate 5 mg 09/09/17 15:40 Lopressor Injection - IVPB Q6H PRN TACHYCARDIA Neomycin/Polymyxin/Bacitracin 1 applic 09/13/17 22:00 09/14/17 10:33 Neosporin Topical Ointment - TP 1 applic BID ANNA Administration Nystatin 1 applic 09/07/17 10:00 09/14/17 10:33 Nystop Powder - TP 1 applic DAILY ANNA Administration Pantoprazole Sodium 40 mg 09/10/17 10:00 09/14/17 10:27 Protonix - PO 40 mg DAILY ANNA Administration Spironolactone 25 mg 09/10/17 10:00 09/14/17 10:27 Aldactone - PO 25 mg DAILY ANNA Administration Laboratory Results - last 24 hr 09/13/17 09/14/17 09/14/17 22:15 06:45 06:45 WBC 14.1 H 14.6 H RBC 3.77 3.65 Hgb 11.2 10.8 Hct 33.4 32.5 MCV 88.6 89.1 MCH 29.8 29.7 MCHC 33.6 33.3 RDW 17.9 H 17.5 H Plt Count 342 339 MPV 8.0 8.1 Neutrophils % 84.8 H Lymphocytes % 8.4 Monocytes % 4.6 Eosinophils % 1.8 Basophils % 0.4 PT with INR 16.80 H INR 1.49 H D PTT (Actin FS) 30.0 Sodium Potassium Chloride Carbon Dioxide Anion Gap BUN Creatinine Creat Clearance w eGFR Random Glucose Calcium Phosphorus Magnesium Total Bilirubin AST ALT Alkaline Phosphatase Total Protein Albumin 09/14/17 06:45 WBC RBC Hgb Hct MCV MCH MCHC RDW Plt Count MPV Neutrophils % Lymphocytes % Monocytes % Eosinophils % Basophils % PT with INR INR PTT (Actin FS) Sodium 142 Potassium 4.2 Chloride 113 H Carbon Dioxide 21 Anion Gap 8 BUN 19 H Creatinine 1.1 H Creat Clearance w eGFR 47.21 Random Glucose 98 Calcium 7.8 L Phosphorus 2.0 L Magnesium 2.1 Total Bilirubin 0.5 D AST 20 ALT 12 Alkaline Phosphatase 95 Total Protein 5.0 L Albumin 1.9 L Microbiology 09/11/17 20:40 Blood - Peripheral Venous Blood Culture - Preliminary NO GROWTH OBTAINED AFTER 48 HOURS, INCUBATION TO CONTINUE FOR 3 DAYS. 09/11/17 20:35 Blood - Peripheral Venous Blood Culture - Preliminary NO GROWTH OBTAINED AFTER 48 HOURS, INCUBATION TO CONTINUE FOR 3 DAYS. 09/09/17 12:45 Colon Fluid Salmonella/Shigella Culture - Final NO GROWTH OF SALMONELLA OR SHIGELLA SPECIES OBTAINED 09/09/17 12:45 Colon Fluid Campylobacter Culture - Final NO GROWTH OF CAMPYLOBACTER SPECIES OBTAINED 09/09/17 12:45 Colon Fluid Yersinia Culture - Final NO GROWTH OF YERSINIA SPECIES OBTAINED 09/09/17 12:45 Colon Fluid Vibrio Culture - Final NO GROWTH OF VIBRIO SPECIES OBTAINED 09/09/17 12:45 Colon Fluid Escherichia coli 0157 Culture - Final NO GROWTH OF E COLI 0157 OBTAINED 09/09/17 12:45 Stool Clostridium difficile Antigen (DOE) - Final 09/09/17 12:45 Stool Clostridium difficile Toxin Assay - Final ASSESSMENT AND PLAN: 86 year old woman with a history of atrial fib, epilepsy, HTN, diverticulitis who presented to the ED with vomiting and diarrhea, found with acute diverticulitis/Partial SBO, now with resolved SBO with repeat imaging with pericolic abscess -Acute sigmoid diverticulitis with pericolic abscess -Partial SBo, resolved now -Vaginal/?Vulvar bleed -Hypokalemia -Hypophosphatemia -Hypernatremia -Atrial fibrillation -JAROD, resolved -Stage III CKD -HLD -Chronic diastolic HF, -Pulmonary HTN -HTN PLan: Zosyn/flagyl, continue per ID. Serial abdominal exams. Discussed with Dr. Pérez , follow up recs. GI input appreciated. NPO for now. Clears in 24 hours if continues to improve. Renal/Cardiology input appreciate. Gentle hydration with close monitoring of respiratory status. home economics teacher consult, h/h stable, Continue eliquis with close monitoring. Hold ACEi, continue lopressor as BP tolerates. Resume cardizem as BP tolerates. Continue aldactone. DVTPPX dispo on eliquis Dispo pending clinical improvement. Plan discussed with patient and daughter at bedside in detail, all questions answered.
--- NOTE | 2017-09-14 16:15 | PN ---
Physical Exam: SUBJECTIVE: Patient seen and examined. Pt feels much better. Passing non bloody stool with no abdominal pain. Still had diaper scantily spotted with blood per vagina. Was seen by Dr Turner yesterday who confirmed continuation of anticoagulation. Resumed NPO yesterday, now requesting water. OBJECTIVE: Vital Signs Period Temp Pulse Resp BP Sys/Kendall Pulse Ox Last 24 Hr 97.7 F-98.8 F 79-88 18-21 89-113/38-61 96 GENERAL: The patient is awake, alert, and fully oriented, in no acute distress. EYES: PERRL, extraocular movements intact, sclera anicteric, conjunctiva clear. No ptosis. ENT: moist mucous membranes. NECK: supple. LUNGS: Breath sounds equal, clear to auscultation bilaterally HEART: Regular rate and rhythm, S1, S2 ABDOMEN: Soft, nontender, nondistended, normoactive bowel sounds, no guarding EXTREMITIES: 2+ pulses, warm, well-perfused, no edema. NEUROLOGICAL: Cranial nerves II through XII grossly intact. Normal speech, gait not observed. PSYCH: Normal mood, normal affect. Laboratory Results - last 24 hr 09/13/17 09/14/17 09/14/17 22:15 06:45 06:45 WBC 14.1 H 14.6 H RBC 3.77 3.65 Hgb 11.2 10.8 Hct 33.4 32.5 MCV 88.6 89.1 MCH 29.8 29.7 MCHC 33.6 33.3 RDW 17.9 H 17.5 H Plt Count 342 339 MPV 8.0 8.1 Neutrophils % 84.8 H Lymphocytes % 8.4 Monocytes % 4.6 Eosinophils % 1.8 Basophils % 0.4 PT with INR 16.80 H INR 1.49 H D PTT (Actin FS) 30.0 Sodium Potassium Chloride Carbon Dioxide Anion Gap BUN Creatinine Creat Clearance w eGFR Random Glucose Calcium Phosphorus Magnesium Total Bilirubin AST ALT Alkaline Phosphatase Total Protein Albumin 09/14/17 06:45 WBC RBC Hgb Hct MCV MCH MCHC RDW Plt Count MPV Neutrophils % Lymphocytes % Monocytes % Eosinophils % Basophils % PT with INR INR PTT (Actin FS) Sodium 142 Potassium 4.2 Chloride 113 H Carbon Dioxide 21 Anion Gap 8 BUN 19 H Creatinine 1.1 H Creat Clearance w eGFR 47.21 Random Glucose 98 Calcium 7.8 L Phosphorus 2.0 L Magnesium 2.1 Total Bilirubin 0.5 D AST 20 ALT 12 Alkaline Phosphatase 95 Total Protein 5.0 L Albumin 1.9 L Active Medications Generic Name Dose Route Start Last Admin Trade Name Freq PRN Reason Stop Dose Admin Apixaban 2.5 mg 09/10/17 10:21 09/14/17 10:27 Eliquis - PO 2.5 mg BID ANNA Administration Atorvastatin Calcium 10 mg 09/07/17 22:00 09/13/17 22:30 Lipitor - PO 10 mg HS ANNA Administration Benzocaine/Butamben/Tetracaine HCl 1 spray 09/07/17 10:15 09/07/17 11:08 Cetacaine [place] - TP 1 spray DAILY PRN Administration throat irritation Piperacillin Sod/Tazobactam 50 mls @ 100 mls/hr 09/11/17 21:30 09/14/17 10:27 Sod 3.375 gm/ Dextrose IVPB 100 mls/hr Q8H-IV ANNA Administration Protocol Sodium Chloride 1,000 mls @ 50 mls/hr 09/13/17 21:27 09/13/17 22:27 Normal Saline - IV 50 mls/hr ASDIR ANNA Administration Metoprolol Tartrate 100 mg 09/09/17 22:00 09/14/17 10:27 Lopressor - PO 100 mg BID ANNA Administration Metoprolol Tartrate 5 mg 09/09/17 15:40 Lopressor Injection - IVPB Q6H PRN TACHYCARDIA Neomycin/Polymyxin/Bacitracin 1 applic 09/13/17 22:00 09/14/17 10:33 Neosporin Topical Ointment - TP 1 applic BID ANNA Administration Nystatin 1 applic 09/07/17 10:00 09/14/17 10:33 Nystop Powder - TP 1 applic DAILY ANNA Administration Pantoprazole Sodium 40 mg 09/10/17 10:00 09/14/17 10:27 Protonix - PO 40 mg DAILY ANNA Administration Spironolactone 25 mg 09/10/17 10:00 09/14/17 10:27 Aldactone - PO 25 mg DAILY ANNA Administration ASSESSMENT/PLAN: Pt is an 86 yo F with a PMHx of atrial fib, epilepsy, HTN, diverticulitis who presented with vomiting and diarrhea and found to have diverticulitis. 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 # Acute Partial SBO resolved, s/p NGT , was on soft diet Post CT scan Now NPO- will discuss feeds with GI Cont IV fluids normal saline D/W Dr Sarmiento since no intervention planned, will resume clear fluids # Acute kidney injury on stage [address] Rodriguez on board monitor electrolytes an #Afib: Permanent atrial fibrillation Cont Lopressor, Cont Eliquis , Cardizem on hold # Hyperlipidemia continue statin # Chronic diastolic heart failure/pulmonary HTN, Pt has been on Lasix, Cont Aldactone Monitor for overload with Normal saline @75/hr # HTN Cont Lopressor, Hold Lisinopril Vagianl Bleeding; Noted in diaper LIZZ- negative for blood Ice Scraper consulted- pt and family declined examination #Physical therapy DvT Px: Eliquis May need short term rehab Visit type - Emergency Visit Emergency Visit: Yes ED Registration Date: 09/07/17 Care time: The patient presented to the Emergency Department on the above date and was hospitalized for further evaluation of their emergent condition. - New Patient This patient is new to me today: No - Critical Care Critical Care patient: No - Discharge Referral Referred to [facility] No
--- NOTE | 2017-09-14 17:11 | PN ---
Progress Note, Physician History of Present Illness: Awake, alert OOB in chair No c/o abdominal pain. No N/V Semi-formed stool No c/o fever/ chills No c/o dysuria WBC remains elevated 14K Repeat BC no growth Repeat CT shows diverticular abscess - Current Medication List Current Medications: Active Medications Apixaban (Eliquis -) 2.5 mg PO BID [facility] Last Admin: 09/14/17 10:27 Dose: 2.5 mg Atorvastatin Calcium (Lipitor -) 10 mg PO HS [facility] Last Admin: 09/13/17 22:30 Dose: 10 mg Benzocaine/Butamben/Tetracaine HCl (Cetacaine [place] -) 1 spray TP DAILY PRN PRN Reason: throat irritation Last Admin: 09/07/17 11:08 Dose: 1 spray Piperacillin Sod/Tazobactam (Sod 3.375 gm/ Dextrose) 50 mls @ 100 mls/hr IVPB Q8H-IV ANNA PRN Reason: Protocol Last Admin: 09/14/17 10:27 Dose: 100 mls/hr Sodium Chloride (Normal Saline -) 1,000 mls @ 50 mls/hr IV ASDIR [facility] Last Admin: 09/13/17 22:27 Dose: 50 mls/hr Metoprolol Tartrate (Lopressor -) 100 mg PO BID [facility] Last Admin: 09/14/17 10:27 Dose: 100 mg Metoprolol Tartrate (Lopressor Injection -) 5 mg IVPB Q6H PRN PRN Reason: TACHYCARDIA Neomycin/Polymyxin/Bacitracin (Neosporin Topical Ointment -) 1 applic TP BID [facility] Last Admin: 09/14/17 10:33 Dose: 1 applic Nystatin (Nystop Powder -) 1 applic TP DAILY [facility] Last Admin: 09/14/17 10:33 Dose: 1 applic Pantoprazole Sodium (Protonix -) 40 mg PO DAILY [facility] Last Admin: 09/14/17 10:27 Dose: 40 mg Spironolactone (Aldactone -) 25 mg PO DAILY [facility] Last Admin: 09/14/17 10:27 Dose: 25 mg - Objective Vital Signs: Vital Signs Temperature 97.7 F 09/14/17 14:11 Pulse Rate 79 09/14/17 14:11 Respiratory Rate 20 09/14/17 09:00 Blood Pressure 93/58 09/14/17 14:11 O2 Sat by Pulse Oximetry (%) 96 09/13/17 21:00 Constitutional: Yes: No Distress, Obese Eyes: Yes: Conjunctiva Clear Cardiovascular: Yes: Regular Rate and Rhythm, S1, S2 Respiratory: Yes: Diminished Gastrointestinal: Yes: Normal Bowel Sounds, Soft, Abdomen, Obese. No: Tenderness Labs: CBC, BMP 09/14/17 06:45 09/14/17 06:45 INR, PTT INR 1.49 (0.82-1.09) H D 09/14/17 06:45 Assessment/Plan Leukocytosis- Diverticulitis/ diverticular abscess Repeat BC no growth CT reviewed with radiologist Continue IV antibiotic therapy Discussed with family at bedside
--- NOTE | 2017-09-14 18:46 | PN ---
Progress Note (short form) - Note Progress Note: came to do consult on patient due to vaginal bleeding . patient refused to be checked family with her, states , it is very insignificant ,let us leave her alone when she gets better , they will take her to see Health Services Manager .
[2017-09-14] MEDS: ATORVASTATIN CA 10 MG TABLET (FP) PO SCH (21:44)
[2017-09-14] MEDS: SODIUM CHLORIDE 1,000 ML IV SCH (21:50)
--- NOTE | 2017-09-14 23:44 | PN ---
Progress Note (short form) - Note Progress Note: S: 86 year old white female with history of permanent atrial fibrillation, hypertension, hypercholesterolemia, coronary artery disease, status post remote postoperative myocardial infarction, status post PCI, status post pulmonary embolism following surgery. recent work up reveals diverticulitis and pericolonic abscess. Patient is OOB, no SOB or chest pain or discomfort reported. Active Medications Generic Name Dose Route Start Last Admin Trade Name Freq PRN Reason Stop Dose Admin Apixaban 2.5 mg 09/10/17 10:21 09/14/17 21:44 Eliquis - PO 2.5 mg BID ANNA Administration Atorvastatin Calcium 10 mg 09/07/17 22:00 09/14/17 21:44 Lipitor - PO 10 mg HS ANNA Administration Benzocaine/Butamben/Tetracaine HCl 1 spray 09/07/17 10:15 09/07/17 11:08 Cetacaine [place] - TP 1 spray DAILY PRN Administration throat irritation Piperacillin Sod/Tazobactam 50 mls @ 100 mls/hr 09/11/17 21:30 09/14/17 17:48 Sod 3.375 gm/ Dextrose IVPB 100 mls/hr Q8H-IV ANNA Administration Protocol Sodium Chloride 1,000 mls @ 50 mls/hr 09/13/17 21:27 09/14/17 21:50 Normal Saline - IV 50 mls/hr ASDIR ANNA Administration Metronidazole 500 mg in 100 mls @ 100 mls/hr 09/14/17 18:00 09/14/17 18:16 Flagyl 500mg Premixed Ivpb - IVPB 100 mls/hr Q8H-IV ANNA Administration Metoprolol Tartrate 100 mg 09/09/17 22:00 09/14/17 21:53 Lopressor - PO Not Given BID ANNA Metoprolol Tartrate 5 mg 09/09/17 15:40 Lopressor Injection - IVPB Q6H PRN TACHYCARDIA Neomycin/Polymyxin/Bacitracin 1 applic 09/13/17 22:00 09/14/17 21:54 Neosporin Topical Ointment - TP 1 applic BID ANNA Administration Nystatin 1 applic 09/07/17 10:00 09/14/17 10:33 Nystop Powder - TP 1 applic DAILY ANNA Administration Pantoprazole Sodium 40 mg 09/10/17 10:00 09/14/17 10:27 Protonix - PO 40 mg DAILY ANNA Administration Spironolactone 25 mg 09/10/17 10:00 09/14/17 10:27 Aldactone - PO 25 mg DAILY ANNA Administration O: 86 year old female was in no acute distress, no pallor, cyanosis, clubbing, or jaundice. Last Vital Signs Temp Pulse Resp BP Pulse Ox 98.2 F 77 20 99/58 96 09/14/17 21:15 09/14/17 21:55 09/14/17 21:55 09/14/17 21:55 09/13/17 21:00 Neck: Supple, no JVD, negative HJR, carotids were equal and upstrokes were normal, no thyromegaly appreciated. Heart: PMI was in the 5th intercostal space, no heaves or thrills, S1 variable, S2 were normal. No murmurs or gallops were appreciated. Lungs: Clear on auscultation bilaterally. Abdomen: Soft, nontender, mildly distended no hepatosplenomegaly appreciated. CBC, BMP 09/14/17 06:45 09/14/17 06:45 IMPRESSION: 1. CAD, s/p [place], s/p PCI, stable angina pectoris. 2. Permanent atrial fibrillation. 3. Hypertension. 4. Intestinal obstruction, resolved. 5. Possible vaginal bleed. 6. Pericolic abscess. RECOMMENDATION: 1. Continue current cardiac therapy. 2. F/u CBC and BMP 3. Cautious fluid fluid replacement.
[2017-09-15] MEDS ORDERED: DEXTROSE 5%-WATER - 50 ML IVPB ONE ×3 (00:55→18:28)
[2017-09-15] MEDS ORDERED: PIPERACILLIN/TAZOBACTAM 3.375 GM VIAL IVPB ONE ×3 (00:55→18:28)
[2017-09-15] MEDS: PIPERACILLIN/TAZOB 3.375 GM 3.375 GM in DEXTROSE 5%-WATER - 50 ML IVPB SCH ×3 (01:00→18:30)
[2017-09-15 09:25] LABS: BASO % 0.3 % (0-2.0); EOS % 1.8 % (0-4.5); HEMATOCRIT 31.7 % (32.4-45.2); HEMOGLOBIN 10.5 GM/dL (10.7-15.3); LYMPH % 8.1 % (8-40); MCH 29.8 pg (25.7-33.7); MCHC 33.2 g/dl (32.0-36.0); MEAN CELL VOLUME 89.8 fl (80-96); MEAN PLT VOLUME 7.9 fl (7.5-11.1); MONO % 4.2 % (3.8-10.2); NEUT % 85.6 % (42.8-82.8); PLATELET COUNT 357 K/MM3 (134-434); RBC 3.53 M/mm3 (3.60-5.2); RDW 17.7 % (11.6-15.6); WHITE BLOOD COUNT 11.8 K/mm3 (4.0-10.0)
[2017-09-15] MEDS ORDERED: PT OWN MED DRAWER 7, Y5N ONE ×2 (09:57→21:36)
[2017-09-15] MEDS: METOPROLOL TARTRATE 50 MG TABLET (FP) PO SCH ×2 (09:59→21:56)
[2017-09-15] MEDS: APIXABAN 2.5 MG TABLET PO SCH ×2 (09:59→21:56)
[2017-09-15] MEDS: SPIRONOLACTONE 25 MG TABLET (FP) PO SCH (09:59)
[2017-09-15] MEDS: PANTOPRAZOLE 40 MG TABLET (FP) PO SCH (09:59)
[2017-09-15] MEDS: NEOMYCIN/POLYMYXIN/BACITRACIN (TRIPLE ANTIBIOTIC) 28 GM OINTMENT TP SCH ×2 (10:00→22:05)
[2017-09-15] MEDS: NYSTATIN POWDER 100,000 UNITS/GM - 15 GM TOPICAL POWDER TP SCH (10:00)
[2017-09-15 10:09] LABS: INR 1.55 (0.82-1.09); PROTHROMBIN TIME (PATIENT) 17.5 SEC (9.7-13.0)
[2017-09-15 10:13] LABS: ACTIVATED PTT 31.1 SECONDS (26.9-34.4); CHLORIDE 114 mmol/L (98-107); POTASSIUM 3.9 mmol/L (3.5-5.1); SODIUM 144 mmol/L (136-145)
--- NOTE | 2017-09-15 10:15 | PN ---
Progress Note, Physician History of Present Illness: No acute events overnight. Clinically the same. Comfortable. Pain- free. Patient's son at bedside. IR deemed the abscess too small to be drained - Current Medication List Current Medications: Active Medications Apixaban (Eliquis -) 2.5 mg PO BID [facility] Last Admin: 09/15/17 09:59 Dose: 2.5 mg Atorvastatin Calcium (Lipitor -) 10 mg PO HS [facility] Last Admin: 09/14/17 21:44 Dose: 10 mg Benzocaine/Butamben/Tetracaine HCl (Cetacaine [place] -) 1 spray TP DAILY PRN PRN Reason: throat irritation Last Admin: 09/07/17 11:08 Dose: 1 spray Piperacillin Sod/Tazobactam (Sod 3.375 gm/ Dextrose) 50 mls @ 100 mls/hr IVPB Q8H-IV ANNA PRN Reason: Protocol Last Admin: 09/15/17 01:00 Dose: 100 mls/hr Sodium Chloride (Normal Saline -) 1,000 mls @ 50 mls/hr IV ASDIR [facility] Last Admin: 09/14/17 21:50 Dose: 50 mls/hr Metronidazole (Flagyl 500mg Premixed Ivpb -) 500 mg in 100 mls @ 100 mls/hr IVPB Q8H-IV [facility] Last Admin: 09/15/17 09:09 Dose: 100 mls/hr Metoprolol Tartrate (Lopressor -) 100 mg PO BID [facility] Last Admin: 09/15/17 09:59 Dose: 100 mg Metoprolol Tartrate (Lopressor Injection -) 5 mg IVPB Q6H PRN PRN Reason: TACHYCARDIA Neomycin/Polymyxin/Bacitracin (Neosporin Topical Ointment -) 1 applic TP BID [facility] Last Admin: 09/15/17 10:00 Dose: 1 applic Nystatin (Nystop Powder -) 1 applic TP DAILY [facility] Last Admin: 09/15/17 10:00 Dose: 1 applic Pantoprazole Sodium (Protonix -) 40 mg PO DAILY [facility] Last Admin: 09/15/17 09:59 Dose: 40 mg Spironolactone (Aldactone -) 25 mg PO DAILY [facility] Last Admin: 09/15/17 09:59 Dose: 25 mg - Objective Vital Signs: Vital Signs Temperature 97.7 F 09/15/17 09:00 Pulse Rate 73 09/15/17 09:00 Respiratory Rate 20 09/15/17 09:00 Blood Pressure 100/45 09/15/17 09:00 O2 Sat by Pulse Oximetry (%) 96 09/13/17 21:00 Constitutional: Yes: Well Nourished, No Distress, Calm Eyes: Yes: Conjunctiva Clear HENT: Yes: Atraumatic Neck: Yes: Supple Cardiovascular: Yes: Regular Rate and Rhythm Gastrointestinal: Yes: Normal Bowel Sounds, Soft. No: Melena, Tenderness, Vomiting Neurological: Yes: Alert, Oriented Labs: CBC, BMP 09/15/17 08:42 INR, PTT INR 1.49 (0.82-1.09) H D 09/14/17 06:45 Laboratory Last Values WBC 11.8 K/mm3 (4.0-10.0) H 09/15/17 08:42 RBC 3.53 M/mm3 (3.60-5.2) L 09/15/17 08:42 Hgb 10.5 GM/dL (10.7-15.3) L 09/15/17 08:42 Hct 31.7 % (32.4-45.2) L 09/15/17 08:42 MCV 89.8 fl (80-96) 09/15/17 08:42 MCH 29.8 pg (25.7-33.7) 09/15/17 08:42 MCHC 33.2 g/dl (32.0-36.0) 09/15/17 08:42 RDW 17.7 % (11.6-15.6) H 09/15/17 08:42 Plt Count 357 K/MM3 (134-434) 09/15/17 08:42 MPV 7.9 fl (7.5-11.1) 09/15/17 08:42 Neutrophils % 85.6 % (42.8-82.8) H 09/15/17 08:42 Lymphocytes % 8.1 % (8-40) 09/15/17 08:42 Monocytes % 4.2 % (3.8-10.2) 09/15/17 08:42 Eosinophils % 1.8 % (0-4.5) 09/15/17 08:42 Basophils % 0.3 % (0-2.0) 09/15/17 08:42 PT with INR 16.80 SEC (9.7-13.0) H 09/14/17 06:45 INR 1.49 (0.82-1.09) H D 09/14/17 06:45 PTT (Actin FS) 30.0 SECONDS (26.9-34.4) 09/14/17 06:45 Sodium 142 mmol/L (136-145) 09/14/17 06:45 Potassium 4.2 mmol/L (3.5-5.1) 09/14/17 06:45 Chloride 113 mmol/L (98-107) H 09/14/17 06:45 Carbon Dioxide 21 mmol/L (21-32) 09/14/17 06:45 Anion Gap 8 (8-16) 09/14/17 06:45 BUN 19 mg/dL (7-18) H 09/14/17 06:45 Creatinine 1.1 mg/dL (0.55-1.02) H 09/14/17 06:45 Creat Clearance w eGFR 47.21 (>60) 09/14/17 06:45 Random Glucose 98 mg/dL (74-106) 09/14/17 06:45 Calcium 7.8 mg/dL (8.5-10.1) L 09/14/17 06:45 Phosphorus 2.0 mg/dL (2.5-4.9) L 09/14/17 06:45 Magnesium 2.1 mg/dL (1.8-2.4) 09/14/17 06:45 Total Bilirubin 0.5 mg/dL (0.2-1.0) D 09/14/17 06:45 AST 20 U/L (15-37) 09/14/17 06:45 ALT 12 U/L (12-78) 09/14/17 06:45 Alkaline Phosphatase 95 U/L (45-117) 09/14/17 06:45 Creatine Kinase 23 IU/L (26-192) L 09/06/17 19:41 Troponin I < 0.02 ng/ml (0.00-0.05) 09/06/17 19:41 C-Reactive Protein 5.1 MG/DL (0.00-0.3) H 09/13/17 06:50 Total Protein 5.0 g/dl (6.4-8.2) L 09/14/17 06:45 Albumin 1.9 g/dl (3.4-5.0) L 09/14/17 06:45 Lipase 87 U/L (73-393) 09/06/17 19:41 Urine Color Yellow 09/11/17 17:00 Urine Appearance Clear 09/11/17 17:00 Urine pH 5.0 (5.0-8.0) 09/11/17 17:00 Ur Specific [place] 1.008 (1.001-1.035) 09/11/17 17:00 Urine Protein Negative (NEGATIVE) 09/11/17 17:00 Urine Glucose (UA) Negative (NEGATIVE) 09/11/17 17:00 Urine Ketones Negative (NEGATIVE) 09/11/17 17:00 Urine Blood 1+ (NEGATIVE) H 09/11/17 17:00 Urine Nitrite Negative (NEGATIVE) 09/11/17 17:00 Urine Bilirubin Negative (<2.0 mg/dL) 09/11/17 17:00 Urine Urobilinogen Negative mg/dL (0.2-1.0) 09/11/17 17:00 Ur Leukocyte Esterase Negative (NEGATIVE) 09/11/17 17:00 Urine WBC (Auto) 1 /hpf (3-5) 09/11/17 17:00 Urine RBC (Auto) None /hpf (0-3) 09/11/17 17:00 Ur Epithelial Cells Rare /HPF (FEW) 09/11/17 17:00 Hyaline Casts 3 /lpf 09/11/17 17:00 Ur Random Sodium 9 MMOL/L 09/07/17 18:00 Ur Random Potassium 29.5 MMOL/L 09/07/17 18:00 Ur Random Chloride < 10 MMOL/L 09/07/17 18:00 Ur Random Urea Nitrogn 969 mg/dL 09/07/17 18:00 Stool Occult Blood Negative (NEGATIVE) 09/12/17 23:43 Blood Type A POSITIVE 09/07/17 08:45 Antibody Screen Negative 09/07/17 07:48 Problem List - Problems (1) Partial obstruction of small intestine Code(s): K56.600 - PARTIAL INTESTINAL OBSTRUCTION, UNSPECIFIED TO CAUSE (2) Diverticulitis Code(s): K57.92 - DVTRCLI OF INTEST, PART UNSP, W/O PERF OR ABSCESS W/O BLEED (3) Diverticulitis large intestine Code(s): K57.32 - DVTRCLI OF LG INT W/O PERFORATION OR ABSCESS W/O BLEEDING Assessment/Plan Diverticulitis with pericolonic abscess. Asymptomatic. Leukocytosis better. Full liquid diet avoiding dairy, high fat
[2017-09-15 10:40] LABS: ALBUMIN 1.9 g/dl (3.4-5.0); ALK PHOS 87 U/L (45-117); ANION GAP 10 (8-16); BILIRUBIN,TOTAL 0.5 mg/dL (0.2-1.0); BLOOD UREA NITROGEN 19 mg/dL (7-18); CO2 20 mmol/L (21-32); GLUCOSE,RANDOM 109 mg/dL (74-106); MAGNESIUM 1.9 mg/dL (1.8-2.4); PHOSPHOROUS 2.3 mg/dL (2.5-4.9); SGOT/AST 11 U/L (15-37); SGPT/ALT 9 U/L (12-78)
--- NOTE | 2017-09-15 12:09 | PN ---
Progress Note (short form) - Note Progress Note: S: 86 year old white female with history of permanent atrial fibrillation, hypertension, hypercholesterolemia, coronary artery disease, status post remote postoperative myocardial infarction, status post PCI, status post pulmonary embolism following surgery. recent work up reveals diverticulitis and pericolonic abscess. Patient sitting in a chair, no abdominal pain or discomfort reported. No shortness of breath or chest pain. No palpitations, lightheadedness or dizziness. Active Medications Generic Name Dose Route Start Last Admin Trade Name Freq PRN Reason Stop Dose Admin Apixaban 2.5 mg 09/10/17 10:21 09/15/17 09:59 Eliquis - PO 2.5 mg BID ANNA Administration Atorvastatin Calcium 10 mg 09/07/17 22:00 09/14/17 21:44 Lipitor - PO 10 mg HS ANNA Administration Benzocaine/Butamben/Tetracaine HCl 1 spray 09/07/17 10:15 09/07/17 11:08 Cetacaine [place] - TP 1 spray DAILY PRN Administration throat irritation Piperacillin Sod/Tazobactam 50 mls @ 100 mls/hr 09/11/17 21:30 09/15/17 10:50 Sod 3.375 gm/ Dextrose IVPB 100 mls/hr Q8H-IV ANNA Administration Protocol Sodium Chloride 1,000 mls @ 50 mls/hr 09/13/17 21:27 09/14/17 21:50 Normal Saline - IV 50 mls/hr ASDIR ANNA Administration Metronidazole 500 mg in 100 mls @ 100 mls/hr 09/14/17 18:00 09/15/17 09:09 Flagyl 500mg Premixed Ivpb - IVPB 100 mls/hr Q8H-IV ANNA Administration Metoprolol Tartrate 100 mg 09/09/17 22:00 09/15/17 09:59 Lopressor - PO 100 mg BID ANNA Administration Metoprolol Tartrate 5 mg 09/09/17 15:40 Lopressor Injection - IVPB Q6H PRN TACHYCARDIA Neomycin/Polymyxin/Bacitracin 1 applic 09/13/17 22:00 09/15/17 10:00 Neosporin Topical Ointment - TP 1 applic BID ANNA Administration Nystatin 1 applic 09/07/17 10:00 09/15/17 10:00 Nystop Powder - TP 1 applic DAILY ANNA Administration Pantoprazole Sodium 40 mg 09/10/17 10:00 09/15/17 09:59 Protonix - PO 40 mg DAILY ANNA Administration Spironolactone 25 mg 09/10/17 10:00 09/15/17 09:59 Aldactone - PO 25 mg DAILY ANNA Administration O: 86 year old female was in no acute distress, no pallor, cyanosis, clubbing, or jaundice. Last Vital Signs Temp Pulse Resp BP Pulse Ox 97.7 F 73 Irregular 20 100/45 96 09/15/17 09:00 09/15/17 09:00 09/15/17 09:00 09/15/17 09:00 09/13/17 21:00 Neck: Supple, no JVD, negative HJR, carotids were equal and upstrokes were normal, no thyromegaly appreciated. Heart: PMI was in the 5th intercostal space, no heaves or thrills, S1 variable, S2 were normal. No murmurs or gallops were appreciated. Lungs: Clear on auscultation bilaterally. Abdomen: Soft, nontender, mildly distended no hepatosplenomegaly appreciated. CBC, BMP 09/15/17 08:42 09/15/17 08:42 IMPRESSION: 1. CAD, s/p VA, s/p PCI, stable angina pectoris. 2. Permanent atrial fibrillation. 3. Hypertension. 4. Intestinal obstruction, resolved. 5. Possible vaginal bleed. 6. Pericolic abscess. RECOMMENDATION: 1. Continue current cardiac therapy. 2. Progressive ambulation with help. 3. Follow up CBC and BMP.
--- NOTE | 2017-09-15 12:23 | PN ---
Progress Note, Physician History of Present Illness: Pt seen and examined at bedside. She denies abdominal pain. She denies fevers or chills. - Current Medication List Current Medications: Active Medications Apixaban (Eliquis -) 2.5 mg PO BID [facility] Last Admin: 09/15/17 09:59 Dose: 2.5 mg Atorvastatin Calcium (Lipitor -) 10 mg PO HS [facility] Last Admin: 09/14/17 21:44 Dose: 10 mg Benzocaine/Butamben/Tetracaine HCl (Cetacaine [place] -) 1 spray TP DAILY PRN PRN Reason: throat irritation Last Admin: 09/07/17 11:08 Dose: 1 spray Piperacillin Sod/Tazobactam (Sod 3.375 gm/ Dextrose) 50 mls @ 100 mls/hr IVPB Q8H-IV ANNA PRN Reason: Protocol Last Admin: 09/15/17 10:50 Dose: 100 mls/hr Sodium Chloride (Normal Saline -) 1,000 mls @ 50 mls/hr IV ASDIR [facility] Last Admin: 09/14/17 21:50 Dose: 50 mls/hr Metronidazole (Flagyl 500mg Premixed Ivpb -) 500 mg in 100 mls @ 100 mls/hr IVPB Q8H-IV [facility] Last Admin: 09/15/17 09:09 Dose: 100 mls/hr Metoprolol Tartrate (Lopressor -) 100 mg PO BID [facility] Last Admin: 09/15/17 09:59 Dose: 100 mg Metoprolol Tartrate (Lopressor Injection -) 5 mg IVPB Q6H PRN PRN Reason: TACHYCARDIA Neomycin/Polymyxin/Bacitracin (Neosporin Topical Ointment -) 1 applic TP BID [facility] Last Admin: 09/15/17 10:00 Dose: 1 applic Nystatin (Nystop Powder -) 1 applic TP DAILY [facility] Last Admin: 09/15/17 10:00 Dose: 1 applic Pantoprazole Sodium (Protonix -) 40 mg PO DAILY [facility] Last Admin: 09/15/17 09:59 Dose: 40 mg Spironolactone (Aldactone -) 25 mg PO DAILY [facility] Last Admin: 09/15/17 09:59 Dose: 25 mg - Objective Vital Signs: Vital Signs Temperature 97.7 F 09/15/17 09:00 Pulse Rate 73 09/15/17 09:00 Respiratory Rate 20 09/15/17 09:00 Blood Pressure 100/45 09/15/17 09:00 O2 Sat by Pulse Oximetry (%) 96 09/13/17 21:00 Constitutional: Yes: Calm Eyes: Yes: Conjunctiva Clear HENT: Yes: Atraumatic Neck: Yes: Supple Cardiovascular: Yes: S1, S2 Respiratory: Yes: CTA Bilaterally Gastrointestinal: Yes: Soft Genitourinary: Yes: WNL Musculoskeletal: Yes: WNL Edema: Yes Edema: LLE: 1+, RLE: 1+ Neurological: Yes: Oriented Psychiatric: Yes: Oriented Labs: CBC, BMP 09/15/17 08:42 09/15/17 08:42 INR, PTT INR 1.55 (0.82-1.09) H 09/15/17 08:42 Problem List - Problems (1) JAROD (acute kidney injury) Code(s): N17.9 - ACUTE KIDNEY FAILURE, UNSPECIFIED (2) Diverticulitis Code(s): K57.92 - DVTRCLI OF INTEST, PART UNSP, W/O PERF OR ABSCESS W/O BLEED (3) Partial obstruction of small intestine Code(s): K56.600 - PARTIAL INTESTINAL OBSTRUCTION, UNSPECIFIED TO CAUSE Assessment/Plan Current Medications Generic Name Dose Route Start Last Admin Trade Name Freq PRN Reason Stop Dose Admin Apixaban 2.5 mg 09/10/17 10:21 09/15/17 09:59 Eliquis - PO 2.5 mg BID ANNA Administration Atorvastatin Calcium 10 mg 09/07/17 22:00 09/14/17 21:44 Lipitor - PO 10 mg HS ANNA Administration Benzocaine/Butamben/Tetracaine HCl 1 spray 09/07/17 10:15 09/07/17 11:08 Cetacaine [place] - TP 1 spray DAILY PRN Administration throat irritation Piperacillin Sod/Tazobactam 50 mls @ 100 mls/hr 09/11/17 21:30 09/15/17 10:50 Sod 3.375 gm/ Dextrose IVPB 100 mls/hr Q8H-IV ANNA Administration Protocol Sodium Chloride 1,000 mls @ 50 mls/hr 09/13/17 21:27 09/14/17 21:50 Normal Saline - IV 50 mls/hr ASDIR ANNA Administration Metronidazole 500 mg in 100 mls @ 100 mls/hr 09/14/17 18:00 09/15/17 09:09 Flagyl 500mg Premixed Ivpb - IVPB 100 mls/hr Q8H-IV ANNA Administration Metoprolol Tartrate 100 mg 09/09/17 22:00 09/15/17 09:59 Lopressor - PO 100 mg BID ANNA Administration Metoprolol Tartrate 5 mg 09/09/17 15:40 Lopressor Injection - IVPB Q6H PRN TACHYCARDIA Neomycin/Polymyxin/Bacitracin 1 applic 09/13/17 22:00 09/15/17 10:00 Neosporin Topical Ointment - TP 1 applic BID ANNA Administration Nystatin 1 applic 09/07/17 10:00 09/15/17 10:00 Nystop Powder - TP 1 applic DAILY ANNA Administration Pantoprazole Sodium 40 mg 09/10/17 10:00 09/15/17 09:59 Protonix - PO 40 mg DAILY ANNA Administration Spironolactone 25 mg 09/10/17 10:00 09/15/17 09:59 Aldactone - PO 25 mg DAILY ANNA Administration Impression 1. JAROD 2. a-fib 3. CHF 4. pulm HTN 5. CAD 6. partial sbo 7. dilated right renal pelvis Plan - renal function is improving - pt started on full liquid diet - consider stopping fluids as pt is on diuretics - lasix is on hold, pt still on spironolactone - check lytes daily - monitor volume status daily - monitor for signs of fluid overload - abx per ID - check lytes daily - consider urology eval
--- NOTE | 2017-09-15 14:42 | PN ---
Physical Exam: SUBJECTIVE: Patient seen and examined. Moving her bowels well. Started on clear fluids, tolerating well. No abdominal pain, no vaginal or rectal bleed, no SOB or chest pain. Has been on gentle IVF. OBJECTIVE: Vital Signs Period Temp Pulse Resp BP Sys/Kendall Pulse Ox Last 24 Hr 97.7 F-98.2 F 70-80 19-20 99-131/45-71 Vital Signs Temp 97.9 F 09/15/17 14:56 Pulse 85 09/15/17 14:56 Resp 20 09/15/17 09:00 BP 123/75 09/15/17 14:56 Pulse Ox 98 09/15/17 09:00 Intake & Output 09/14/17 09/15/17 09/15/17 23:59 11:59 23:59 Intake Total 1200 1000 350 Balance 1200 1000 350 Weight 88.592 kg Intake: IV 600 600 Normal Saline - 1,000 ml 600 600 @ 50 mls/hr IV ASDIR ANNA Rx#:[id number] IVPB 400 100 Oral 200 300 350 Other: Voiding Method Diaper Toilet # Unmeasured Voids Void 1 Bowel Movement No Yes Yes # Bowel Movements 2 1 1 Weight Measurement Method Built in [facility] GENERAL: The patient is awake, alert, and fully oriented, in no acute distress. HEAD: Normal with no signs of trauma. ENT: moist mucous membranes. NECK: supple. LUNGS: Breath sounds equal, clear to auscultation bilaterally, no wheezes, no crackles, no accessory muscle use. On intranasal oxygen HEART: Regular rate and rhythm, S1, S2 without murmur ABDOMEN: Soft, nontender, nondistended, normoactive bowel sounds EXTREMITIES: 2+ pulses, warm, well-perfused, no edema. NEUROLOGICAL: Cranial nerves II through XII grossly intact. Normal speech, gait not observed. CBC, BMP 09/15/17 08:42 09/15/17 08:42 Laboratory Results - last 24 hr 09/15/17 09/15/17 09/15/17 08:42 08:42 08:42 WBC 11.8 H RBC 3.53 L Hgb 10.5 L Hct 31.7 L MCV 89.8 MCH 29.8 MCHC 33.2 RDW 17.7 H Plt Count 357 MPV 7.9 Neutrophils % 85.6 H Lymphocytes % 8.1 Monocytes % 4.2 Eosinophils % 1.8 Basophils % 0.3 PT with INR 17.50 H INR 1.55 H PTT (Actin FS) 31.1 Sodium 144 Potassium 3.9 Chloride 114 H Carbon Dioxide 20 L Anion Gap 10 BUN 19 H Creatinine 1.0 Creat Clearance w eGFR 52.69 Random Glucose 109 H Calcium 8.0 L Phosphorus 2.3 L Magnesium 1.9 Total Bilirubin 0.5 AST 11 L ALT 9 L Alkaline Phosphatase 87 Total Protein 5.0 L Albumin 1.9 L Active Medications Generic Name Dose Route Start Last Admin Trade Name Freq PRN Reason Stop Dose Admin Apixaban 2.5 mg 09/10/17 10:21 09/15/17 09:59 Eliquis - PO 2.5 mg BID ANNA Administration Atorvastatin Calcium 10 mg 09/07/17 22:00 09/14/17 21:44 Lipitor - PO 10 mg HS ANNA Administration Benzocaine/Butamben/Tetracaine HCl 1 spray 09/07/17 10:15 09/07/17 11:08 Cetacaine [place] - TP 1 spray DAILY PRN Administration throat irritation Piperacillin Sod/Tazobactam 50 mls @ 100 mls/hr 09/11/17 21:30 09/15/17 10:50 Sod 3.375 gm/ Dextrose IVPB 100 mls/hr Q8H-IV ANNA Administration Protocol Sodium Chloride 1,000 mls @ 50 mls/hr 09/13/17 21:27 09/14/17 21:50 Normal Saline - IV 50 mls/hr ASDIR ANNA Administration Metronidazole 500 mg in 100 mls @ 100 mls/hr 09/14/17 18:00 09/15/17 09:09 Flagyl 500mg Premixed Ivpb - IVPB 100 mls/hr Q8H-IV ANNA Administration Sodium Phosphate 30 mm/ Sodium 260 mls @ 62.5 mls/hr 09/15/17 14:38 Chloride IVPB 09/15/17 18:47 ONCE ONE Metoprolol Tartrate 100 mg 09/09/17 22:00 09/15/17 09:59 Lopressor - PO 100 mg BID ANNA Administration Metoprolol Tartrate 5 mg 09/09/17 15:40 Lopressor Injection - IVPB Q6H PRN TACHYCARDIA Neomycin/Polymyxin/Bacitracin 1 applic 09/13/17 22:00 09/15/17 10:00 Neosporin Topical Ointment - TP 1 applic BID ANNA Administration Nystatin 1 applic 09/07/17 10:00 09/15/17 10:00 Nystop Powder - TP 1 applic DAILY ANNA Administration Pantoprazole Sodium 40 mg 09/10/17 10:00 09/15/17 09:59 Protonix - PO 40 mg DAILY ANNA Administration Spironolactone 25 mg 09/10/17 10:00 09/15/17 09:59 Aldactone - PO 25 mg DAILY ANNA Administration ASSESSMENT/PLAN: Pt is an 86 yo F with a PMHx of atrial fib, epilepsy, HTN, diverticulitis who presented with vomiting and diarrhea and found to have diverticulitis. 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 No hydronephrosis-For outpatient follow up # Left adrenal mass fat containing myelolipoma [id number] on Ct scan # Cholelithiasis multiple on CT of abdomen. # Acute Partial SBO resolved, s/p NGT , was on soft diet Post CT scan Now NPO- will discuss feeds with GI stop IV fluids Pt on full clears # Acute kidney injury on stage [address] Rodriguez on board monitor #Afib: Permanent atrial fibrillation Cont Lopressor Cont Eliquis Cardizem on hold # Hyperlipidemia continue statin # Chronic diastolic heart failure/pulmonary HTN, Pt has been on Lasix, Cont Aldactone # HTN Cont Lopressor, Hold Lisinopril #Vaginal Bleeding; Noted in diaper LIZZ- negative for blood Licensed Retail Supervisor consulted- pt and family declined examination #Physical therapy DvT Px: Eliquis Dispo: Discharge planning in a day or two Visit type - Emergency Visit Emergency Visit: Yes ED Registration Date: 09/07/17 Care time: The patient presented to the Emergency Department on the above date and was hospitalized for further evaluation of their emergent condition. - New Patient This patient is new to me today: No - Critical Care Critical Care patient: No - Discharge Referral Referred to [facility] Med P.C.: No
[2017-09-15] MEDS ORDERED: SODIUM PHOSPHATE - 30 MM in SODIUM CHLORIDE 250 ML IVPB ONE (15:00)
--- NOTE | 2017-09-15 15:08 | PN ---
Teaching Attending Note Name of Resident: Lou Suresh ATTENDING PHYSICIAN STATEMENT I saw and evaluated the patient. I reviewed the resident's note and discussed the case with the resident. I agree with the resident's findings and plan as documented with exceptions below. SUBJECTIVE: patient seen and examined. no nausea, vomiting, abdominal pain. SOme loose stools but tolerating liquids well. OBJECTIVE: Vital Signs Period Temp Pulse Resp BP Sys/Kendall Pulse Ox Last 24 Hr 97.7 F-98.2 F 70-85 19-20 99-131/45-75 Intake & Output 09/12/17 09/13/17 09/14/17 09/15/17 23:59 23:59 23:59 23:59 Intake Total 1550 1525 1420 1350 Balance 1550 1525 1420 1350 Weight 193 lb 3 oz 194 lb 195 lb 3 oz 195 lb 5 oz General: sitting in chair in no acute distress Abdomen: soft, obese, NT throughout, positive bowel sounds, no voluntary or involuntary guarding or rigidity Home Medication List Medication Instructions Recorded Confirmed Type Aspirin 81 mg PO DAILY 09/06/17 09/06/17 History Diltiazem Cd [Cardizem Cd -] 180 mg PO DAILY 09/06/17 09/06/17 History Furosemide [Lasix -] 40 mg PO HS 09/06/17 09/06/17 History Furosemide [Lasix -] 80 mg PO AM 09/06/17 09/06/17 History Metoprolol Succinate [Toprol Xl -] 100 mg PO BID 09/06/17 09/06/17 History Potassium Chloride [K-Dur -] 20 meq PO DAILY 09/06/17 09/06/17 History Pravastatin Sodium [Pravachol] 40 mg PO DAILY 09/06/17 09/06/17 History Spironolactone [Aldactone] 25 mg PO DAILY 09/06/17 09/06/17 History Apixaban [Eliquis] 5 mg PO BID 09/07/17 09/07/17 History Active Medications Generic Name Dose Route Start Last Admin Trade Name Freq PRN Reason Stop Dose Admin Apixaban 2.5 mg 09/10/17 10:21 09/15/17 09:59 Eliquis - PO 2.5 mg BID ANNA Administration Atorvastatin Calcium 10 mg 09/07/17 22:00 09/14/17 21:44 Lipitor - PO 10 mg HS ANNA Administration Benzocaine/Butamben/Tetracaine HCl 1 spray 09/07/17 10:15 09/07/17 11:08 Cetacaine [place] - TP 1 spray DAILY PRN Administration throat irritation Piperacillin Sod/Tazobactam 50 mls @ 100 mls/hr 09/11/17 21:30 09/15/17 10:50 Sod 3.375 gm/ Dextrose IVPB 100 mls/hr Q8H-IV ANNA Administration Protocol Metronidazole 500 mg in 100 mls @ 100 mls/hr 09/14/17 18:00 09/15/17 09:09 Flagyl 500mg Premixed Ivpb - IVPB 100 mls/hr Q8H-IV ANNA Administration Sodium Phosphate 30 mm/ Sodium 260 mls @ 62.5 mls/hr 09/15/17 15:00 Chloride IVPB 09/15/17 19:09 ONCE ONE Metoprolol Tartrate 100 mg 09/09/17 22:00 09/15/17 09:59 Lopressor - PO 100 mg BID ANNA Administration Metoprolol Tartrate 5 mg 09/09/17 15:40 Lopressor Injection - IVPB Q6H PRN TACHYCARDIA Neomycin/Polymyxin/Bacitracin 1 applic 09/13/17 22:00 09/15/17 10:00 Neosporin Topical Ointment - TP 1 applic BID ANNA Administration Nystatin 1 applic 09/07/17 10:00 09/15/17 10:00 Nystop Powder - TP 1 applic DAILY ANNA Administration Pantoprazole Sodium 40 mg 09/10/17 10:00 09/15/17 09:59 Protonix - PO 40 mg DAILY ANNA Administration Spironolactone 25 mg 09/10/17 10:00 09/15/17 09:59 Aldactone - PO 25 mg DAILY ANNA Administration Laboratory Results - last 24 hr 09/15/17 09/15/17 09/15/17 08:42 08:42 08:42 WBC 11.8 H RBC 3.53 L Hgb 10.5 L Hct 31.7 L MCV 89.8 MCH 29.8 MCHC 33.2 RDW 17.7 H Plt Count 357 MPV 7.9 Neutrophils % 85.6 H Lymphocytes % 8.1 Monocytes % 4.2 Eosinophils % 1.8 Basophils % 0.3 PT with INR 17.50 H INR 1.55 H PTT (Actin FS) 31.1 Sodium 144 Potassium 3.9 Chloride 114 H Carbon Dioxide 20 L Anion Gap 10 BUN 19 H Creatinine 1.0 Creat Clearance w eGFR 52.69 Random Glucose 109 H Calcium 8.0 L Phosphorus 2.3 L Magnesium 1.9 Total Bilirubin 0.5 AST 11 L ALT 9 L Alkaline Phosphatase 87 Total Protein 5.0 L Albumin 1.9 L Microbiology 09/11/17 20:40 Blood - Peripheral Venous Blood Culture - Preliminary NO GROWTH OBTAINED AFTER 72 HOURS, INCUBATION TO CONTINUE FOR 2 DAYS. 09/11/17 20:35 Blood - Peripheral Venous Blood Culture - Preliminary NO GROWTH OBTAINED AFTER 72 HOURS, INCUBATION TO CONTINUE FOR 2 DAYS. 09/09/17 12:45 Colon Fluid Salmonella/Shigella Culture - Final NO GROWTH OF SALMONELLA OR SHIGELLA SPECIES OBTAINED 09/09/17 12:45 Colon Fluid Campylobacter Culture - Final NO GROWTH OF CAMPYLOBACTER SPECIES OBTAINED 09/09/17 12:45 Colon Fluid Yersinia Culture - Final NO GROWTH OF YERSINIA SPECIES OBTAINED 09/09/17 12:45 Colon Fluid Vibrio Culture - Final NO GROWTH OF VIBRIO SPECIES OBTAINED 09/09/17 12:45 Colon Fluid Escherichia coli 0157 Culture - Final NO GROWTH OF E COLI 0157 OBTAINED 09/09/17 12:45 Stool Clostridium difficile Antigen (DOE) - Final 09/09/17 12:45 Stool Clostridium difficile Toxin Assay - Final ASSESSMENT AND PLAN: 86 year old woman with a history of atrial fib, epilepsy, HTN, diverticulitis who presented to the ED with vomiting and diarrhea, found with acute diverticulitis/Partial SBO, now with resolved SBO with repeat imaging with pericolic abscess -Acute sigmoid diverticulitis with pericolic abscess -Partial SBO, resolved now -Vaginal/?Vulvar bleed -Hypokalemia -Hypophosphatemia -Hypernatremia -Atrial fibrillation -JAROD, resolved -Stage III CKD -HLD -Chronic diastolic HF, -Pulmonary HTN -HTN PLan: Improving, WBC better, afebrile, advance to full liquid diet. Zosyn/flagyl Serial abdominal exams. GI input appreciated. Renal/cardiology input appreciated. D/c IVF. Resume lasix once tolerating diet well. state wildlife officer input noted. H/h stable. Hold ACEi for now. Continue lopressor as BP tolerates. Resume Cardizem as BP tolerates. Continue aldactone. DVTPPX on eliquis Dispo pending clinical improvement in 2-3 days if tolerating diet well and no concerns. . Plan discussed with patient and family at bedside in detail, all questions answered.
[2017-09-15] MEDS: ATORVASTATIN CA 10 MG TABLET (FP) PO SCH (21:56)
[2017-09-16] MEDS ORDERED: DEXTROSE 5%-WATER - 50 ML IVPB ONE ×3 (01:11→17:08)
[2017-09-16] MEDS ORDERED: PIPERACILLIN/TAZOBACTAM 3.375 GM VIAL IVPB ONE ×3 (01:11→17:08)
[2017-09-16] MEDS: PIPERACILLIN/TAZOB 3.375 GM 3.375 GM in DEXTROSE 5%-WATER - 50 ML IVPB SCH ×3 (01:29→17:19)
[2017-09-16 07:24] LABS: BASO % 0.3 % (0-2.0); EOS % 1.9 % (0-4.5); HEMATOCRIT 32.2 % (32.4-45.2); HEMOGLOBIN 10.7 GM/dL (10.7-15.3); MCH 29.8 pg (25.7-33.7); MCHC 33.2 g/dl (32.0-36.0); MEAN CELL VOLUME 89.8 fl (80-96); MEAN PLT VOLUME 7.8 fl (7.5-11.1); MONO % 6.4 % (3.8-10.2); NEUT % 82.4 % (42.8-82.8); PLATELET COUNT 376 K/MM3 (134-434); RBC 3.58 M/mm3 (3.60-5.2); RDW 17.5 % (11.6-15.6); WHITE BLOOD COUNT 11.1 K/mm3 (4.0-10.0)
[2017-09-16] MEDS ORDERED: SODIUM CHLORIDE 0.9% 500 ML INFUS.BAG IV ONE (08:03)
--- NOTE | 2017-09-16 08:17 | PN ---
Teaching Attending Note Name of Resident: Lou Suresh ATTENDING PHYSICIAN STATEMENT I saw and evaluated the patient. I reviewed the resident's note and discussed the case with the resident. I agree with the resident's findings and plan as documented with exceptions below. SUBJECTIVE: Patient seen and examined. no nausea, vomiting, abdominal pain or diarrhea. No dyspnea. OBJECTIVE: Vital Signs Period Temp Pulse Resp BP Sys/Kendall Pulse Ox Last 24 Hr 97.6 F-98.0 F 73-98 18-20 99-123/45-75 98-98 Intake & Output 09/13/17 09/14/17 09/15/17 09/16/17 23:59 23:59 23:59 23:59 Intake Total 1525 1420 2100 Balance 1525 1420 2100 Weight 194 lb 195 lb 3 oz 195 lb 5 oz 197 lb General: sitting in chair in no acute distress Abdomen: soft, obese, NT throughout, positive bowel sounds, no voluntary or involuntary guarding or rigidity Chest: CTAB Extremities: 2+ pedal edema, pitting Home Medication List Medication Instructions Recorded Confirmed Type Aspirin 81 mg PO DAILY 09/06/17 09/06/17 History Diltiazem Cd [Cardizem Cd -] 180 mg PO DAILY 09/06/17 09/06/17 History Furosemide [Lasix -] 40 mg PO HS 09/06/17 09/06/17 History Furosemide [Lasix -] 80 mg PO AM 09/06/17 09/06/17 History Metoprolol Succinate [Toprol Xl -] 100 mg PO BID 09/06/17 09/06/17 History Potassium Chloride [K-Dur -] 20 meq PO DAILY 09/06/17 09/06/17 History Pravastatin Sodium [Pravachol] 40 mg PO DAILY 09/06/17 09/06/17 History Spironolactone [Aldactone] 25 mg PO DAILY 09/06/17 09/06/17 History Apixaban [Eliquis] 5 mg PO BID 09/07/17 09/07/17 History Active Medications Generic Name Dose Route Start Last Admin Trade Name Freq PRN Reason Stop Dose Admin Apixaban 2.5 mg 09/10/17 10:21 09/15/17 21:56 Eliquis - PO 2.5 mg BID ANNA Administration Atorvastatin Calcium 10 mg 09/07/17 22:00 09/15/17 21:56 Lipitor - PO 10 mg HS ANNA Administration Benzocaine/Butamben/Tetracaine HCl 1 spray 09/07/17 10:15 09/07/17 11:08 Cetacaine [place] - TP 1 spray DAILY PRN Administration throat irritation Piperacillin Sod/Tazobactam 50 mls @ 100 mls/hr 09/11/17 21:30 09/16/17 01:29 Sod 3.375 gm/ Dextrose IVPB 100 mls/hr Q8H-IV ANNA Administration Protocol Metronidazole 500 mg in 100 mls @ 100 mls/hr 09/14/17 18:00 09/16/17 02:30 Flagyl 500mg Premixed Ivpb - IVPB 100 mls/hr Q8H-IV ANNA Administration Metoprolol Tartrate 100 mg 09/09/17 22:00 09/15/17 21:56 Lopressor - PO 100 mg BID ANNA Administration Metoprolol Tartrate 5 mg 09/09/17 15:40 Lopressor Injection - IVPB Q6H PRN TACHYCARDIA Neomycin/Polymyxin/Bacitracin 1 applic 09/13/17 22:00 09/15/17 22:05 Neosporin Topical Ointment - TP 1 applic BID ANNA Administration Nystatin 1 applic 09/07/17 10:00 09/15/17 10:00 Nystop Powder - TP 1 applic DAILY ANNA Administration Pantoprazole Sodium 40 mg 09/10/17 10:00 09/15/17 09:59 Protonix - PO 40 mg DAILY ANNA Administration Spironolactone 25 mg 09/10/17 10:00 09/15/17 09:59 Aldactone - PO 25 mg DAILY ANNA Administration Microbiology 09/11/17 20:35 Blood - Peripheral Venous Blood Culture - Preliminary NO GROWTH OBTAINED AFTER 96 HOURS, INCUBATION TO CONTINUE FOR 1 DAYS. 09/11/17 20:40 Blood - Peripheral Venous Blood Culture - Preliminary NO GROWTH OBTAINED AFTER 96 HOURS, INCUBATION TO CONTINUE FOR 1 DAYS. 09/09/17 12:45 Colon Fluid Salmonella/Shigella Culture - Final NO GROWTH OF SALMONELLA OR SHIGELLA SPECIES OBTAINED 09/09/17 12:45 Colon Fluid Campylobacter Culture - Final NO GROWTH OF CAMPYLOBACTER SPECIES OBTAINED 09/09/17 12:45 Colon Fluid Yersinia Culture - Final NO GROWTH OF YERSINIA SPECIES OBTAINED 09/09/17 12:45 Colon Fluid Vibrio Culture - Final NO GROWTH OF VIBRIO SPECIES OBTAINED 09/09/17 12:45 Colon Fluid Escherichia coli 0157 Culture - Final NO GROWTH OF E COLI 0157 OBTAINED 09/09/17 12:45 Stool Clostridium difficile Antigen (DOE) - Final 09/09/17 12:45 Stool Clostridium difficile Toxin Assay - Final ASSESSMENT AND PLAN: 86 year old woman with a history of atrial fib, epilepsy, HTN, diverticulitis who presented to the ED with vomiting and diarrhea, found with acute diverticulitis/Partial SBO, now with resolved SBO with repeat imaging with pericolic abscess -Acute sigmoid diverticulitis with pericolic abscess -Partial SBO, resolved now -Vaginal/?Vulvar bleed -Hypokalemia -Hypophosphatemia -Hypernatremia -Atrial fibrillation -JAROD, resolved -Stage III CKD -HLD -Chronic diastolic HF, -Pulmonary HTN -HTN PLan: Improving, WBC better, afebrile, Surgery input noted. Repeat imaging tomorrow. Continue Zosyn/flagyl Serial abdominal exams. GI input appreciated. Renal/cardiology input appreciated. Off IVF. Resume lasix once tolerating diet well. MOnitor BP closely, avoid hydration for now given dependent edema and no clinical evidence of dehydration. cinetechnician input noted. H/h stable. Hold ACEi for now. Continue lopressor as BP tolerates. Resume Cardizem as BP tolerates. Continue aldactone. DVTPPX on eliquis Dispo pending clinical improvement and repeat imaging tomorrow. Plan discussed with patient, all questions answered.
[2017-09-16 08:44] LABS: ANION GAP 8 (8-16); BLOOD UREA NITROGEN 15 mg/dL (7-18); CALCIUM 7.7 mg/dL (8.5-10.1); CHLORIDE 113 mmol/L (98-107); CO2 22 mmol/L (21-32); GLUCOSE,RANDOM 90 mg/dL (74-106); MAGNESIUM 1.8 mg/dL (1.8-2.4); PHOSPHOROUS 3.4 mg/dL (2.5-4.9); POTASSIUM 3.8 mmol/L (3.5-5.1); SODIUM 143 mmol/L (136-145)
[2017-09-16 09:13] LABS: CREATININE 0.9 mg/dL (0.55-1.02)
[2017-09-16] MEDS: METOPROLOL TARTRATE 50 MG TABLET (FP) PO SCH ×2 (09:52→21:50)
[2017-09-16] MEDS: PANTOPRAZOLE 40 MG TABLET (FP) PO SCH (09:54)
[2017-09-16] MEDS: NEOMYCIN/POLYMYXIN/BACITRACIN (TRIPLE ANTIBIOTIC) 28 GM OINTMENT TP SCH ×2 (09:54→22:05)
[2017-09-16] MEDS: APIXABAN 2.5 MG TABLET PO SCH ×2 (09:54→21:51)
[2017-09-16] MEDS: NYSTATIN POWDER 100,000 UNITS/GM - 15 GM TOPICAL POWDER TP SCH (09:54)
[2017-09-16] MEDS: SPIRONOLACTONE 25 MG TABLET (FP) PO SCH (10:35)
--- NOTE | 2017-09-16 10:37 | PN ---
Progress Note (short form) - Note Progress Note: Attending Surgeon Seen in f/u; tolerating full liquid diet; no pain; on IVAB's VSS AF abdomen-benign WBC trending down CT; diverticular abscess not amenable to drainage IMP: improving clinically PLAN: Continue present tx.; repeat imaging 09/17/17 or 09/18/17 Bahman Pérez MD FACS
--- NOTE | 2017-09-16 10:53 | PN ---
Progress Note (short form) - Note Progress Note: S: 86 year old white female with history of coronary artery disease, status post remote postoperative myocardial infarction, status post PCI, permanent atrial fibrillation, hypertension, hypercholesterolemia, , status post pulmonary embolism following surgery. recent work up reveals diverticulitis and pericolonic abscess. Patient sitting in a chair, patient is on full liquids, no shortness of breath or chest pain reported. No palpitations, lightheadedness or dizziness. Active Medications Generic Name Dose Route Start Last Admin Trade Name Freq PRN Reason Stop Dose Admin Apixaban 2.5 mg 09/10/17 10:21 09/16/17 09:54 Eliquis - PO 2.5 mg BID ANNA Administration Atorvastatin Calcium 10 mg 09/07/17 22:00 09/15/17 21:56 Lipitor - PO 10 mg HS ANNA Administration Benzocaine/Butamben/Tetracaine HCl 1 spray 09/07/17 10:15 09/07/17 11:08 Cetacaine [place] - TP 1 spray DAILY PRN Administration throat irritation Piperacillin Sod/Tazobactam 50 mls @ 100 mls/hr 09/11/17 21:30 09/16/17 09:55 Sod 3.375 gm/ Dextrose IVPB 100 mls/hr Q8H-IV ANNA Administration Protocol Metronidazole 500 mg in 100 mls @ 100 mls/hr 09/14/17 18:00 09/16/17 09:53 Flagyl 500mg Premixed Ivpb - IVPB 100 mls/hr Q8H-IV ANNA Administration Metoprolol Tartrate 100 mg 09/09/17 22:00 09/16/17 09:52 Lopressor - PO Not Given BID ANNA Metoprolol Tartrate 5 mg 09/09/17 15:40 Lopressor Injection - IVPB Q6H PRN TACHYCARDIA Neomycin/Polymyxin/Bacitracin 1 applic 09/13/17 22:00 09/16/17 09:54 Neosporin Topical Ointment - TP 1 applic BID ANNA Administration Nystatin 1 applic 09/07/17 10:00 09/16/17 09:54 Nystop Powder - TP 1 applic DAILY ANNA Administration Pantoprazole Sodium 40 mg 09/10/17 10:00 09/16/17 09:54 Protonix - PO 40 mg DAILY ANNA Administration Spironolactone 25 mg 09/10/17 10:00 09/16/17 10:35 Aldactone - PO Not Given DAILY ANNA O: 86 year old female was in no acute distress, no pallor, cyanosis, clubbing, or jaundice. Last Vital Signs Temp Pulse Resp BP Pulse Ox 97.6 F 85 20 86/42 95 09/16/17 08:23 09/16/17 10:19 09/16/17 10:19 09/16/17 10:19 09/16/17 09:26 Neck: Supple, no JVD, negative HJR, carotids were equal and upstrokes were normal, no thyromegaly appreciated. Heart: PMI was in the 5th intercostal space, no heaves or thrills, S1 variable, S2 were normal. No murmurs or gallops were appreciated. Lungs: Clear on auscultation bilaterally. Abdomen: Soft, nontender, mildly distended no hepatosplenomegaly appreciated. Extremities: 2+ bilateral ankle edema, no calf tenderness. CBC, BMP 09/16/17 06:35 09/16/17 06:35 IMPRESSION: 1. CAD, s/p CO, s/p PCI, stable angina pectoris. 2. Permanent atrial fibrillation. 3. Hypertension. 4. Intestinal obstruction, resolved. 5. Possible vaginal bleed. 6. Pericolic abscess. RECOMMENDATION: 1. Close f/u of weight and dependant edema. 2. May need additional diuretics. 3. Bedside PT. 4. F/u CBC/BMP.
--- NOTE | 2017-09-16 13:37 | PN ---
Physical Exam: SUBJECTIVE: Patient seen and examined. No abdominal pain, no nausea/vomiting. Started on full clear diet. Overnight Aide thought her stool was loose this am. IVF stopped yesterday. OBJECTIVE: Vital Signs Period Temp Pulse Resp BP Sys/Kendall Pulse Ox Last 24 Hr 97.6 F-98.0 F 82-101 18-20 86-123/42-75 95-98 Vital Signs Temp 97.6 F 09/16/17 08:23 Pulse 85 09/16/17 10:19 Resp 20 09/16/17 10:19 BP 86/42 09/16/17 10:19 Pulse Ox 95 09/16/17 09:26 Intake & Output 09/15/17 09/16/17 09/16/17 23:59 11:59 23:59 Intake Total 1100 350 450 Balance 1100 350 450 Weight 89.358 kg Intake: IV 250 Normal Saline - 1,000 ml 250 @ 50 mls/hr IV ASDIR ANNA Rx#:[id number] IVPB 300 Oral 550 350 450 Other: Voiding Method Toilet Toilet # Unmeasured Voids Void 3 2 2 Bowel Movement Yes Yes Yes # Bowel Movements 1 1 1 Weight Measurement Method Built in [facility] GENERAL: The patient is awake, alert, and fully oriented, in no acute distress. EYES: PERRL, extraocular movements intact ENT: Dry mucous membranes. NECK: Trachea midline, full range of motion, supple. LUNGS: Breath sounds equal, clear to auscultation bilaterally, no wheezes, no crackles HEART: Regular rate and rhythm, S1, S2 without murmur, rub or gallop. ABDOMEN: Soft, nontender, nondistended, active bowel sounds, no guarding EXTREMITIES: 2+ pulses, warm, well-perfused, bilateral pedal edema 1+. NEUROLOGICAL: AAOx3. Normal speech, no facial droop, gait not observed. CBC, BMP 09/16/17 06:35 09/16/17 06:35 Laboratory Results - last 24 hr 09/16/17 09/16/17 06:35 06:35 WBC 11.1 H RBC 3.58 L Hgb 10.7 Hct 32.2 L MCV 89.8 MCH 29.8 MCHC 33.2 RDW 17.5 H Plt Count 376 MPV 7.8 Neutrophils % 82.4 Lymphocytes % 9.0 Monocytes % 6.4 Eosinophils % 1.9 Basophils % 0.3 Sodium 143 Potassium 3.8 Chloride 113 H Carbon Dioxide 22 Anion Gap 8 BUN 15 Creatinine 0.9 Random Glucose 90 Calcium 7.7 L Phosphorus 3.4 Magnesium 1.8 Active Medications Generic Name Dose Route Start Last Admin Trade Name Freq PRN Reason Stop Dose Admin Apixaban 2.5 mg 09/10/17 10:21 09/16/17 09:54 Eliquis - PO 2.5 mg BID ANNA Administration Atorvastatin Calcium 10 mg 09/07/17 22:00 09/15/17 21:56 Lipitor - PO 10 mg HS ANNA Administration Benzocaine/Butamben/Tetracaine HCl 1 spray 09/07/17 10:15 09/07/17 11:08 Cetacaine [place] - TP 1 spray DAILY PRN Administration throat irritation Piperacillin Sod/Tazobactam 50 mls @ 100 mls/hr 09/11/17 21:30 09/16/17 09:55 Sod 3.375 gm/ Dextrose IVPB 100 mls/hr Q8H-IV ANNA Administration Protocol Metronidazole 500 mg in 100 mls @ 100 mls/hr 09/14/17 18:00 09/16/17 09:53 Flagyl 500mg Premixed Ivpb - IVPB 100 mls/hr Q8H-IV ANNA Administration Metoprolol Tartrate 100 mg 09/09/17 22:00 09/16/17 09:52 Lopressor - PO Not Given BID ANNA Metoprolol Tartrate 5 mg 09/09/17 15:40 Lopressor Injection - IVPB Q6H PRN TACHYCARDIA Neomycin/Polymyxin/Bacitracin 1 applic 09/13/17 22:00 09/16/17 09:54 Neosporin Topical Ointment - TP 1 applic BID ANNA Administration Nystatin 1 applic 09/07/17 10:00 09/16/17 09:54 Nystop Powder - TP 1 applic DAILY ANNA Administration Pantoprazole Sodium 40 mg 09/10/17 10:00 09/16/17 09:54 Protonix - PO 40 mg DAILY ANNA Administration Spironolactone 25 mg 09/10/17 10:00 09/16/17 10:35 Aldactone - PO Not Given DAILY ANNA ASSESSMENT/PLAN: Pt is an 86 yo F with a PMHx of atrial fib, epilepsy, HTN, diverticulitis who presented with vomiting and diarrhea and found to have diverticulitis. # Acute diverticulitis White count downward trending Pt passing stool, non bloody Day 5 on Zosyn Day [address] of abdomen with oral contrast (09/13/17): Worsening diverticulits with pericolic abscess (image may be lagging behind clinical features) not drainable Now on full clear diet IVF stopped Observe for rediuresis as needed Per Dr Pérez, repeat CT abd/pelvis tomorrow # Acute kidney injury on stage [address] Im[address] Rodriguez on board Monitor BMP Pt has chronic renal dilation per daughter as documented: # Right renal pelvis markedly dilated consistent with UPJ obstruction; with cortical thinning as per radiology this is indicative of long standing process. No hydronephrosis-For outpatient follow up # Left adrenal mass fat containing myelolipoma [id number] on Ct scan # Cholelithiasis multiple on CT of abdomen. # Acute Partial SBO resolved, s/p NGT , On full clear diet, for advancement #Afib: Permanent atrial fibrillation Cont Lopressor Cont Eliquis Cardizem on hold # Hyperlipidemia continue statin # Chronic diastolic heart failure/pulmonary HTN, Pt has been on Lasix, currently on hold while being rehydrated and NPO Will likely resume lasix tomorrow Aldactone held with low BP # HTN Cont Lopressor, Hold Lisinopril #Vaginal Bleeding; Noted in diaper LIZZ- negative for blood Junior Mechanical Engineer consulted- pt and family declined further evaluation Stable CBC #Physical therapy DvT Px: Eliquis Dispo: For likely discharge after repeat scan Visit type - Emergency Visit Emergency Visit: Yes ED Registration Date: 09/07/17 Care time: The patient presented to the Emergency Department on the above date and was hospitalized for further evaluation of their emergent condition. - New Patient This patient is new to me today: No - Critical Care Critical Care patient: No - Discharge Referral Referred to [facility] Med P.C.: No
--- NOTE | 2017-09-16 13:58 | PN ---
Progress Note, Physician History of Present Illness: Pt seen and examined at bedside. She is tolerating diet do far. - Current Medication List Current Medications: Active Medications Apixaban (Eliquis -) 2.5 mg PO BID [facility] Last Admin: 09/16/17 09:54 Dose: 2.5 mg Atorvastatin Calcium (Lipitor -) 10 mg PO HS [facility] Last Admin: 09/15/17 21:56 Dose: 10 mg Benzocaine/Butamben/Tetracaine HCl (Cetacaine [place] -) 1 spray TP DAILY PRN PRN Reason: throat irritation Last Admin: 09/07/17 11:08 Dose: 1 spray Piperacillin Sod/Tazobactam (Sod 3.375 gm/ Dextrose) 50 mls @ 100 mls/hr IVPB Q8H-IV ANNA PRN Reason: Protocol Last Admin: 09/16/17 09:55 Dose: 100 mls/hr Metronidazole (Flagyl 500mg Premixed Ivpb -) 500 mg in 100 mls @ 100 mls/hr IVPB Q8H-IV [facility] Last Admin: 09/16/17 09:53 Dose: 100 mls/hr Metoprolol Tartrate (Lopressor -) 100 mg PO BID [facility] Last Admin: 09/16/17 09:52 Dose: Not Given Metoprolol Tartrate (Lopressor Injection -) 5 mg IVPB Q6H PRN PRN Reason: TACHYCARDIA Neomycin/Polymyxin/Bacitracin (Neosporin Topical Ointment -) 1 applic TP BID [facility] Last Admin: 09/16/17 09:54 Dose: 1 applic Nystatin (Nystop Powder -) 1 applic TP DAILY [facility] Last Admin: 09/16/17 09:54 Dose: 1 applic Pantoprazole Sodium (Protonix -) 40 mg PO DAILY [facility] Last Admin: 09/16/17 09:54 Dose: 40 mg Spironolactone (Aldactone -) 25 mg PO DAILY [facility] Last Admin: 09/16/17 10:35 Dose: Not Given - Objective Vital Signs: Vital Signs Temperature 97.6 F 09/16/17 08:23 Pulse Rate 85 09/16/17 10:19 Respiratory Rate 20 09/16/17 10:19 Blood Pressure 86/42 09/16/17 10:19 O2 Sat by Pulse Oximetry (%) 95 09/16/17 09:26 Constitutional: Yes: Calm Eyes: Yes: Conjunctiva Clear HENT: Yes: Atraumatic Neck: Yes: Supple Cardiovascular: Yes: S1, S2 Respiratory: Yes: CTA Bilaterally Gastrointestinal: Yes: Normal Bowel Sounds, Soft, Abdomen, Obese Genitourinary: Yes: WNL Musculoskeletal: Yes: WNL Edema: Yes Edema: LLE: 1+, RLE: 1+ Neurological: Yes: Oriented Psychiatric: Yes: Oriented Labs: CBC, BMP 09/16/17 06:35 09/16/17 06:35 INR, PTT INR 1.55 (0.82-1.09) H 09/15/17 08:42 Problem List - Problems (1) JAROD (acute kidney injury) Code(s): N17.9 - ACUTE KIDNEY FAILURE, UNSPECIFIED (2) Diverticulitis Code(s): K57.92 - DVTRCLI OF INTEST, PART UNSP, W/O PERF OR ABSCESS W/O BLEED (3) Partial obstruction of small intestine Code(s): K56.600 - PARTIAL INTESTINAL OBSTRUCTION, UNSPECIFIED TO CAUSE Assessment/Plan Current Medications Generic Name Dose Route Start Last Admin Trade Name Freq PRN Reason Stop Dose Admin Apixaban 2.5 mg 09/10/17 10:21 09/16/17 09:54 Eliquis - PO 2.5 mg BID ANNA Administration Atorvastatin Calcium 10 mg 09/07/17 22:00 09/15/17 21:56 Lipitor - PO 10 mg HS ANNA Administration Benzocaine/Butamben/Tetracaine HCl 1 spray 09/07/17 10:15 09/07/17 11:08 Cetacaine [place] - TP 1 spray DAILY PRN Administration throat irritation Piperacillin Sod/Tazobactam 50 mls @ 100 mls/hr 09/11/17 21:30 09/16/17 09:55 Sod 3.375 gm/ Dextrose IVPB 100 mls/hr Q8H-IV ANNA Administration Protocol Metronidazole 500 mg in 100 mls @ 100 mls/hr 09/14/17 18:00 09/16/17 09:53 Flagyl 500mg Premixed Ivpb - IVPB 100 mls/hr Q8H-IV ANNA Administration Metoprolol Tartrate 100 mg 09/09/17 22:00 09/16/17 09:52 Lopressor - PO Not Given BID ANNA Metoprolol Tartrate 5 mg 09/09/17 15:40 Lopressor Injection - IVPB Q6H PRN TACHYCARDIA Neomycin/Polymyxin/Bacitracin 1 applic 09/13/17 22:00 09/16/17 09:54 Neosporin Topical Ointment - TP 1 applic BID ANNA Administration Nystatin 1 applic 09/07/17 10:00 09/16/17 09:54 Nystop Powder - TP 1 applic DAILY ANNA Administration Pantoprazole Sodium 40 mg 09/10/17 10:00 09/16/17 09:54 Protonix - PO 40 mg DAILY ANNA Administration Spironolactone 25 mg 09/10/17 10:00 09/16/17 10:35 Aldactone - PO Not Given DAILY [facility] Laboratory Tests 09/16/17 06:35 Potassium 3.8 Impression 1. JAROD 2. a-fib 3. CHF 4. pulm HTN 5. CAD 6. partial sbo 7. dilated right renal pelvis Plan - renal function stabilizing - cont spironolactone - will likely restart lasix tomorrow - monitor volume status daily - monitor for signs of fluid overload - abx per ID - consider urology eval
--- NOTE | 2017-09-16 15:38 | PN ---
Progress Note, Physician History of Present Illness: No acute events overnight. Clinically the same. Comfortable. Pain- free. Patient's daughter at bedside. - Current Medication List Current Medications: Active Medications Apixaban (Eliquis -) 2.5 mg PO BID [facility] Last Admin: 09/16/17 09:54 Dose: 2.5 mg Atorvastatin Calcium (Lipitor -) 10 mg PO HS [facility] Last Admin: 09/15/17 21:56 Dose: 10 mg Benzocaine/Butamben/Tetracaine HCl (Cetacaine [place] -) 1 spray TP DAILY PRN PRN Reason: throat irritation Last Admin: 09/07/17 11:08 Dose: 1 spray Piperacillin Sod/Tazobactam (Sod 3.375 gm/ Dextrose) 50 mls @ 100 mls/hr IVPB Q8H-IV ANNA PRN Reason: Protocol Last Admin: 09/16/17 09:55 Dose: 100 mls/hr Metronidazole (Flagyl 500mg Premixed Ivpb -) 500 mg in 100 mls @ 100 mls/hr IVPB Q8H-IV [facility] Last Admin: 09/16/17 09:53 Dose: 100 mls/hr Metoprolol Tartrate (Lopressor -) 100 mg PO BID [facility] Last Admin: 09/16/17 09:52 Dose: Not Given Metoprolol Tartrate (Lopressor Injection -) 5 mg IVPB Q6H PRN PRN Reason: TACHYCARDIA Neomycin/Polymyxin/Bacitracin (Neosporin Topical Ointment -) 1 applic TP BID [facility] Last Admin: 09/16/17 09:54 Dose: 1 applic Nystatin (Nystop Powder -) 1 applic TP DAILY [facility] Last Admin: 09/16/17 09:54 Dose: 1 applic Pantoprazole Sodium (Protonix -) 40 mg PO DAILY [facility] Last Admin: 09/16/17 09:54 Dose: 40 mg Spironolactone (Aldactone -) 25 mg PO DAILY [facility] Last Admin: 09/16/17 10:35 Dose: Not Given - Objective Vital Signs: Vital Signs Temperature 97.8 F 09/16/17 14:18 Pulse Rate 87 09/16/17 14:18 Respiratory Rate 20 09/16/17 10:19 Blood Pressure 123/68 09/16/17 14:18 O2 Sat by Pulse Oximetry (%) 95 09/16/17 09:26 Labs: CBC, BMP 09/16/17 06:35 09/16/17 06:35 INR, PTT INR 1.55 (0.82-1.09) H 09/15/17 08:42 Problem List - Problems (1) Partial obstruction of small intestine Code(s): K56.600 - PARTIAL INTESTINAL OBSTRUCTION, UNSPECIFIED TO CAUSE (2) Diverticulitis Code(s): K57.92 - DVTRCLI OF INTEST, PART UNSP, W/O PERF OR ABSCESS W/O BLEED (3) Diverticulitis large intestine Code(s): K57.32 - DVTRCLI OF LG INT W/O PERFORATION OR ABSCESS W/O BLEEDING Assessment/Plan soft diet
[2017-09-16] MEDS: ATORVASTATIN CA 10 MG TABLET (FP) PO SCH (21:50)
[2017-09-17] MEDS ORDERED: PIPERACILLIN/TAZOBACTAM 3.375 GM VIAL IVPB ONE ×3 (01:52→17:20)
[2017-09-17] MEDS ORDERED: DEXTROSE 5%-WATER - 50 ML IVPB ONE ×3 (01:54→17:20)
[2017-09-17] MEDS: PIPERACILLIN/TAZOB 3.375 GM 3.375 GM in DEXTROSE 5%-WATER - 50 ML IVPB SCH ×3 (02:07→17:24)
[2017-09-17 08:52] LABS: BASO % 0.8 % (0-2.0); HEMATOCRIT 33.5 % (32.4-45.2); HEMOGLOBIN 11.2 GM/dL (10.7-15.3); LYMPH % 8.8 % (8-40); MCH 29.8 pg (25.7-33.7); MCHC 33.5 g/dl (32.0-36.0); MEAN CELL VOLUME 89.1 fl (80-96); MEAN PLT VOLUME 7.7 fl (7.5-11.1); MONO % 5.8 % (3.8-10.2); NEUT % 82.6 % (42.8-82.8); PLATELET COUNT 406 K/MM3 (134-434); RBC 3.76 M/mm3 (3.60-5.2); RDW 17.8 % (11.6-15.6); WHITE BLOOD COUNT 10.3 K/mm3 (4.0-10.0)
[2017-09-17] MEDS ORDERED: PT OWN MED DRAWER 7, Y5N ONE ×2 (09:22→21:11)
[2017-09-17] MEDS: PANTOPRAZOLE 40 MG TABLET (FP) PO SCH (09:26)
[2017-09-17] MEDS: SPIRONOLACTONE 25 MG TABLET (FP) PO SCH (09:26)
[2017-09-17] MEDS: METOPROLOL TARTRATE 50 MG TABLET (FP) PO SCH ×2 (09:26→21:29)
[2017-09-17] MEDS: APIXABAN 2.5 MG TABLET PO SCH ×2 (09:26→21:29)
[2017-09-17] MEDS: NEOMYCIN/POLYMYXIN/BACITRACIN (TRIPLE ANTIBIOTIC) 28 GM OINTMENT TP SCH ×2 (09:27→22:25)
[2017-09-17] MEDS: NYSTATIN POWDER 100,000 UNITS/GM - 15 GM TOPICAL POWDER TP SCH (09:27)
[2017-09-17 09:33] LABS: ANION GAP 8 (8-16); BLOOD UREA NITROGEN 13 mg/dL (7-18); CALCIUM 7.8 mg/dL (8.5-10.1); CHLORIDE 114 mmol/L (98-107); CO2 22 mmol/L (21-32); GLUCOSE,RANDOM 120 mg/dL (74-106); MAGNESIUM 1.6 mg/dL (1.8-2.4); PHOSPHOROUS 1.7 mg/dL (2.5-4.9); POTASSIUM 3.6 mmol/L (3.5-5.1); SODIUM 144 mmol/L (136-145)
[2017-09-17 09:36] LABS: ALK PHOS 91 U/L (45-117); BILIRUBIN,TOTAL 0.5 mg/dL (0.2-1.0); CREATININE 0.9 mg/dL (0.55-1.02); SGOT/AST 8 U/L (15-37); SGPT/ALT 8 U/L (12-78)
--- NOTE | 2017-09-17 15:00 | PN ---
Progress Note, Physician History of Present Illness: No acute events overnight. Clinically the same. Comfortable. Pain- free. Patient's daughter at bedside. Today's CAT scan results noted - Current Medication List Current Medications: Active Medications Apixaban (Eliquis -) 2.5 mg PO BID [facility] Last Admin: 09/17/17 09:26 Dose: 2.5 mg Atorvastatin Calcium (Lipitor -) 10 mg PO HS [facility] Last Admin: 09/16/17 21:50 Dose: 10 mg Benzocaine/Butamben/Tetracaine HCl (Cetacaine [place] -) 1 spray TP DAILY PRN PRN Reason: throat irritation Last Admin: 09/07/17 11:08 Dose: 1 spray Piperacillin Sod/Tazobactam (Sod 3.375 gm/ Dextrose) 50 mls @ 100 mls/hr IVPB Q8H-IV ANNA PRN Reason: Protocol Last Admin: 09/17/17 11:00 Dose: 100 mls/hr Metronidazole (Flagyl 500mg Premixed Ivpb -) 500 mg in 100 mls @ 100 mls/hr IVPB Q8H-IV [facility] Last Admin: 09/17/17 09:27 Dose: 100 mls/hr Metoprolol Tartrate (Lopressor -) 100 mg PO BID [facility] Last Admin: 09/17/17 09:26 Dose: 100 mg Metoprolol Tartrate (Lopressor Injection -) 5 mg IVPB Q6H PRN PRN Reason: TACHYCARDIA Neomycin/Polymyxin/Bacitracin (Neosporin Topical Ointment -) 1 applic TP BID [facility] Last Admin: 09/17/17 09:27 Dose: 1 applic Nystatin (Nystop Powder -) 1 applic TP DAILY [facility] Last Admin: 09/17/17 09:27 Dose: 1 applic Pantoprazole Sodium (Protonix -) 40 mg PO DAILY [facility] Last Admin: 09/17/17 09:26 Dose: 40 mg Spironolactone (Aldactone -) 25 mg PO DAILY [facility] Last Admin: 09/17/17 09:26 Dose: 25 mg - Objective Vital Signs: Vital Signs Temperature 97.7 F 09/17/17 14:51 Pulse Rate 82 09/17/17 14:51 Respiratory Rate 20 09/17/17 14:51 Blood Pressure 147/85 09/17/17 14:51 O2 Sat by Pulse Oximetry (%) 95 09/16/17 21:00 Constitutional: Yes: Well Nourished, No Distress, Calm Gastrointestinal: Yes: Normal Bowel Sounds, Soft. No: Rectal Bleeding, Tenderness, Tenderness, Epigastrium, Tenderness, Rebound, Vomiting Neurological: Yes: Alert, Oriented Labs: CBC, BMP 09/17/17 07:45 09/17/17 07:45 INR, PTT INR 1.55 (0.82-1.09) H 09/15/17 08:42 Laboratory Last Values WBC 10.3 K/mm3 (4.0-10.0) H 09/17/17 07:45 RBC 3.76 M/mm3 (3.60-5.2) 09/17/17 07:45 Hgb 11.2 GM/dL (10.7-15.3) 09/17/17 07:45 Hct 33.5 % (32.4-45.2) 09/17/17 07:45 MCV 89.1 fl (80-96) 09/17/17 07:45 MCH 29.8 pg (25.7-33.7) 09/17/17 07:45 MCHC 33.5 g/dl (32.0-36.0) 09/17/17 07:45 RDW 17.8 % (11.6-15.6) H 09/17/17 07:45 Plt Count 406 K/MM3 (134-434) 09/17/17 07:45 MPV 7.7 fl (7.5-11.1) 09/17/17 07:45 Neutrophils % 82.6 % (42.8-82.8) 09/17/17 07:45 Lymphocytes % 8.8 % (8-40) 09/17/17 07:45 Monocytes % 5.8 % (3.8-10.2) 09/17/17 07:45 Eosinophils % 2.0 % (0-4.5) 09/17/17 07:45 Basophils % 0.8 % (0-2.0) 09/17/17 07:45 PT with INR 17.50 SEC (9.7-13.0) H 09/15/17 08:42 INR 1.55 (0.82-1.09) H 09/15/17 08:42 PTT (Actin FS) 31.1 SECONDS (26.9-34.4) 09/15/17 08:42 Sodium 144 mmol/L (136-145) 09/17/17 07:45 Potassium 3.6 mmol/L (3.5-5.1) 09/17/17 07:45 Chloride 114 mmol/L (98-107) H 09/17/17 07:45 Carbon Dioxide 22 mmol/L (21-32) 09/17/17 07:45 Anion Gap 8 (8-16) 09/17/17 07:45 BUN 13 mg/dL (7-18) 09/17/17 07:45 Creatinine 0.9 mg/dL (0.55-1.02) 09/17/17 07:45 Creat Clearance w eGFR 59.51 (>60) 09/17/17 07:45 Random Glucose 120 mg/dL (74-106) H 09/17/17 07:45 Calcium 7.8 mg/dL (8.5-10.1) L 09/17/17 07:45 Phosphorus 1.7 mg/dL (2.5-4.9) L 09/17/17 07:45 Magnesium 1.6 mg/dL (1.8-2.4) L 09/17/17 07:45 Total Bilirubin 0.5 mg/dL (0.2-1.0) 09/17/17 07:45 AST 8 U/L (15-37) L 09/17/17 07:45 ALT 8 U/L (12-78) L 09/17/17 07:45 Alkaline Phosphatase 91 U/L (45-117) 09/17/17 07:45 Creatine Kinase 23 IU/L (26-192) L 09/06/17 19:41 Troponin I < 0.02 ng/ml (0.00-0.05) 09/06/17 19:41 C-Reactive Protein 5.1 MG/DL (0.00-0.3) H 09/13/17 06:50 Total Protein 5.0 g/dl (6.4-8.2) L 09/17/17 07:45 Albumin 2.0 g/dl (3.4-5.0) L 09/17/17 07:45 Lipase 87 U/L (73-393) 09/06/17 19:41 Urine Color Yellow 09/11/17 17:00 Urine Appearance Clear 09/11/17 17:00 Urine pH 5.0 (5.0-8.0) 09/11/17 17:00 Ur Specific Bells 1.008 (1.001-1.035) 09/11/17 17:00 Urine Protein Negative (NEGATIVE) 09/11/17 17:00 Urine Glucose (UA) Negative (NEGATIVE) 09/11/17 17:00 Urine Ketones Negative (NEGATIVE) 09/11/17 17:00 Urine Blood 1+ (NEGATIVE) H 09/11/17 17:00 Urine Nitrite Negative (NEGATIVE) 09/11/17 17:00 Urine Bilirubin Negative (<2.0 mg/dL) 09/11/17 17:00 Urine Urobilinogen Negative mg/dL (0.2-1.0) 09/11/17 17:00 Ur Leukocyte Esterase Negative (NEGATIVE) 09/11/17 17:00 Urine WBC (Auto) 1 /hpf (3-5) 09/11/17 17:00 Urine RBC (Auto) None /hpf (0-3) 09/11/17 17:00 Ur Epithelial Cells Rare /HPF (FEW) 09/11/17 17:00 Hyaline Casts 3 /lpf 09/11/17 17:00 Ur Random Sodium 9 MMOL/L 09/07/17 18:00 Ur Random Potassium 29.5 MMOL/L 09/07/17 18:00 Ur Random Chloride < 10 MMOL/L 09/07/17 18:00 Ur Random Urea Nitrogn 969 mg/dL 09/07/17 18:00 Stool Occult Blood Negative (NEGATIVE) 09/12/17 23:43 Blood Type A POSITIVE 09/07/17 08:45 Antibody Screen Negative 09/07/17 07:48 - ....Imaging Cat Scan: Report Reviewed Problem List - Problems (1) Partial obstruction of small intestine Code(s): K56.600 - PARTIAL INTESTINAL OBSTRUCTION, UNSPECIFIED TO CAUSE (2) Diverticulitis Code(s): K57.92 - DVTRCLI OF INTEST, PART UNSP, W/O PERF OR ABSCESS W/O BLEED (3) Diverticulitis large intestine Code(s): K57.32 - DVTRCLI OF LG INT W/O PERFORATION OR ABSCESS W/O BLEEDING Assessment/Plan Today's CT scan results noted. Significance is unclear as patient remains asymptomatic. Continue current care
--- NOTE | 2017-09-17 15:09 | PN ---
Progress Note (short form) - Note Progress Note: S: 86 year old white female with history of coronary artery disease, status post remote postoperative myocardial infarction, status post PCI, permanent atrial fibrillation, hypertension, hypercholesterolemia.H/o of pericolic abscess. started on regular food.No SOB or chest pain. Active Medications Generic Name Dose Route Start Last Admin Trade Name Freq PRN Reason Stop Dose Admin Apixaban 2.5 mg 09/10/17 10:21 09/17/17 09:26 Eliquis - PO 2.5 mg BID ANNA Administration Atorvastatin Calcium 10 mg 09/07/17 22:00 09/16/17 21:50 Lipitor - PO 10 mg HS ANNA Administration Benzocaine/Butamben/Tetracaine HCl 1 spray 09/07/17 10:15 09/07/17 11:08 Cetacaine [place] - TP 1 spray DAILY PRN Administration throat irritation Piperacillin Sod/Tazobactam 50 mls @ 100 mls/hr 09/11/17 21:30 09/17/17 11:00 Sod 3.375 gm/ Dextrose IVPB 100 mls/hr Q8H-IV ANNA Administration Protocol Metronidazole 500 mg in 100 mls @ 100 mls/hr 09/14/17 18:00 09/17/17 09:27 Flagyl 500mg Premixed Ivpb - IVPB 100 mls/hr Q8H-IV ANNA Administration Metoprolol Tartrate 100 mg 09/09/17 22:00 09/17/17 09:26 Lopressor - PO 100 mg BID ANNA Administration Metoprolol Tartrate 5 mg 09/09/17 15:40 Lopressor Injection - IVPB Q6H PRN TACHYCARDIA Neomycin/Polymyxin/Bacitracin 1 applic 09/13/17 22:00 09/17/17 09:27 Neosporin Topical Ointment - TP 1 applic BID ANNA Administration Nystatin 1 applic 09/07/17 10:00 09/17/17 09:27 Nystop Powder - TP 1 applic DAILY ANNA Administration Pantoprazole Sodium 40 mg 09/10/17 10:00 09/17/17 09:26 Protonix - PO 40 mg DAILY ANNA Administration Spironolactone 25 mg 09/10/17 10:00 09/17/17 09:26 Aldactone - PO 25 mg DAILY ANNA Administration O: 86 year old female was in no acute distress, no pallor, cyanosis, clubbing, or jaundice. Last Vital Signs Temp Pulse Resp BP Pulse Ox 97.7 F 82 20 147/85 95 09/17/17 14:51 09/17/17 14:51 09/17/17 14:51 09/17/17 14:51 09/16/17 21:00 Neck: Supple, no JVD, negative HJR, carotids were equal and upstrokes were normal, no thyromegaly appreciated. Heart: PMI was in the 5th intercostal space, no heaves or thrills, S1 variable, S2 were normal. No murmurs or gallops were appreciated. Lungs: Clear on auscultation bilaterally. Abdomen: Soft, nontender, mildly distended no hepatosplenomegaly appreciated. Extremities: 2+ bilateral ankle edema, no calf tenderness. CBC, BMP 09/17/17 07:45 09/17/17 07:45 IMPRESSION: 1. CAD, s/p TN, s/p PCI, stable angina pectoris. 2. Permanent atrial fibrillation. 3. Hypertension. 4. Intestinal obstruction, resolved. 5. Continue current Pericolic abscess. RECOMMENDATION: 1. Continue current therapy. 3. Discharge when medically stable. 4. Out patient follow up.
[2017-09-17] MEDS ORDERED: MAGNESIUM SULF 50% (8.12 MEQ/2 ML-1 GM VIAL) IVPB ONE (16:41)
--- NOTE | 2017-09-17 16:41 | PN ---
Progress Note, Physician History of Present Illness: Pt seen and examined at bedside. She is awake and alert. She says she feels better. She is tolerating diet. - Current Medication List Current Medications: Active Medications Apixaban (Eliquis -) 2.5 mg PO BID [facility] Last Admin: 09/17/17 09:26 Dose: 2.5 mg Atorvastatin Calcium (Lipitor -) 10 mg PO HS [facility] Last Admin: 09/16/17 21:50 Dose: 10 mg Benzocaine/Butamben/Tetracaine HCl (Cetacaine [place] -) 1 spray TP DAILY PRN PRN Reason: throat irritation Last Admin: 09/07/17 11:08 Dose: 1 spray Piperacillin Sod/Tazobactam (Sod 3.375 gm/ Dextrose) 50 mls @ 100 mls/hr IVPB Q8H-IV ANNA PRN Reason: Protocol Last Admin: 09/17/17 11:00 Dose: 100 mls/hr Metronidazole (Flagyl 500mg Premixed Ivpb -) 500 mg in 100 mls @ 100 mls/hr IVPB Q8H-IV [facility] Last Admin: 09/17/17 09:27 Dose: 100 mls/hr Metoprolol Tartrate (Lopressor -) 100 mg PO BID [facility] Last Admin: 09/17/17 09:26 Dose: 100 mg Metoprolol Tartrate (Lopressor Injection -) 5 mg IVPB Q6H PRN PRN Reason: TACHYCARDIA Neomycin/Polymyxin/Bacitracin (Neosporin Topical Ointment -) 1 applic TP BID [facility] Last Admin: 09/17/17 09:27 Dose: 1 applic Nystatin (Nystop Powder -) 1 applic TP DAILY [facility] Last Admin: 09/17/17 09:27 Dose: 1 applic Pantoprazole Sodium (Protonix -) 40 mg PO DAILY [facility] Last Admin: 09/17/17 09:26 Dose: 40 mg Spironolactone (Aldactone -) 25 mg PO DAILY [facility] Last Admin: 09/17/17 09:26 Dose: 25 mg - Objective Vital Signs: Vital Signs Temperature 97.7 F 09/17/17 14:51 Pulse Rate 82 09/17/17 14:51 Respiratory Rate 20 09/17/17 14:51 Blood Pressure 147/85 09/17/17 14:51 O2 Sat by Pulse Oximetry (%) 95 09/16/17 21:00 Constitutional: Yes: Calm Eyes: Yes: Conjunctiva Clear HENT: Yes: Atraumatic Neck: Yes: Supple Cardiovascular: Yes: S1, S2 Respiratory: Yes: CTA Bilaterally Gastrointestinal: Yes: Soft, Abdomen, Obese Genitourinary: Yes: WNL Musculoskeletal: Yes: WNL Edema: Yes Edema: LLE: 1+, RLE: 1+ Neurological: Yes: Oriented Psychiatric: Yes: Oriented Labs: CBC, BMP 09/17/17 07:45 09/17/17 07:45 INR, PTT INR 1.55 (0.82-1.09) H 09/15/17 08:42 Problem List - Problems (1) JAROD (acute kidney injury) Code(s): N17.9 - ACUTE KIDNEY FAILURE, UNSPECIFIED (2) Diverticulitis Code(s): K57.92 - DVTRCLI OF INTEST, PART UNSP, W/O PERF OR ABSCESS W/O BLEED (3) Partial obstruction of small intestine Code(s): K56.600 - PARTIAL INTESTINAL OBSTRUCTION, UNSPECIFIED TO CAUSE Assessment/Plan Current Medications Generic Name Dose Route Start Last Admin Trade Name Freq PRN Reason Stop Dose Admin Apixaban 2.5 mg 09/10/17 10:21 09/17/17 09:26 Eliquis - PO 2.5 mg BID ANNA Administration Atorvastatin Calcium 10 mg 09/07/17 22:00 09/16/17 21:50 Lipitor - PO 10 mg HS ANNA Administration Benzocaine/Butamben/Tetracaine HCl 1 spray 09/07/17 10:15 09/07/17 11:08 Cetacaine [place] - TP 1 spray DAILY PRN Administration throat irritation Piperacillin Sod/Tazobactam 50 mls @ 100 mls/hr 09/11/17 21:30 09/17/17 11:00 Sod 3.375 gm/ Dextrose IVPB 100 mls/hr Q8H-IV ANNA Administration Protocol Metronidazole 500 mg in 100 mls @ 100 mls/hr 09/14/17 18:00 09/17/17 09:27 Flagyl 500mg Premixed Ivpb - IVPB 100 mls/hr Q8H-IV ANNA Administration Metoprolol Tartrate 100 mg 09/09/17 22:00 09/17/17 09:26 Lopressor - PO 100 mg BID ANNA Administration Metoprolol Tartrate 5 mg 09/09/17 15:40 Lopressor Injection - IVPB Q6H PRN TACHYCARDIA Neomycin/Polymyxin/Bacitracin 1 applic 09/13/17 22:00 09/17/17 09:27 Neosporin Topical Ointment - TP 1 applic BID ANNA Administration Nystatin 1 applic 09/07/17 10:00 09/17/17 09:27 Nystop Powder - TP 1 applic DAILY ANNA Administration Pantoprazole Sodium 40 mg 09/10/17 10:00 09/17/17 09:26 Protonix - PO 40 mg DAILY ANNA Administration Spironolactone 25 mg 09/10/17 10:00 09/17/17 09:26 Aldactone - PO 25 mg DAILY ANNA Administration Laboratory Tests 09/17/17 07:45 Phosphorus 1.7 L Magnesium 1.6 L Impression 1. JAROD 2. a-fib 3. CHF 4. pulm HTN 5. CAD 6. partial sbo 7. dilated right renal pelvis Plan - cont spironolactone - restart lasix at 40 daily - replace mag and phos - monitor volume status daily - monitor for signs of fluid overload - abx per ID - consider urology eval
[2017-09-17] MEDS ORDERED: MAGNESIUM 1GM/D5W - 1 GM/100 ML IVPB IVPB ONE (17:00)
[2017-09-17] MEDS: FUROSEMIDE 40 MG TABLET (FP) PO SCH (17:23)
--- NOTE | 2017-09-17 18:09 | PN ---
Teaching Attending Note Name of Resident: Lou Suresh ATTENDING PHYSICIAN STATEMENT I saw and evaluated the patient. I reviewed the resident's note and discussed the case with the resident. I agree with the resident's findings and plan as documented with exceptions below. SUBJECTIVE: Patient seen and examined. no nausea, vomiting or abdominal pain, tolerating diet well. OBJECTIVE: Vital Signs Period Temp Pulse Resp BP Sys/Kendall Pulse Ox Last 24 Hr 97.6 F-98.1 F 82-93 20-22 104-147/60-85 95 Intake & Output 09/14/17 09/15/17 09/16/17 09/17/17 23:59 23:59 23:59 23:59 Intake Total 1420 2100 1000 325 Balance 1420 2100 1000 325 Weight 195 lb 3 oz 195 lb 5 oz 197 lb 206 lb General: wheelchair no acute concerns Abdomen: soft, obese, NT throughout, no voluntary or involuntary guarding or rigidity Extremities: bilateral 2+ pedal pitting edema Home Medication List Medication Instructions Recorded Confirmed Type Aspirin 81 mg PO DAILY 09/06/17 09/06/17 History Diltiazem Cd [Cardizem Cd -] 180 mg PO DAILY 09/06/17 09/06/17 History Furosemide [Lasix -] 40 mg PO HS 09/06/17 09/06/17 History Furosemide [Lasix -] 80 mg PO AM 09/06/17 09/06/17 History Metoprolol Succinate [Toprol Xl -] 100 mg PO BID 09/06/17 09/06/17 History Potassium Chloride [K-Dur -] 20 meq PO DAILY 09/06/17 09/06/17 History Pravastatin Sodium [Pravachol] 40 mg PO DAILY 09/06/17 09/06/17 History Spironolactone [Aldactone] 25 mg PO DAILY 09/06/17 09/06/17 History Apixaban [Eliquis] 5 mg PO BID 09/07/17 09/07/17 History Active Medications Generic Name Dose Route Start Last Admin Trade Name Freq PRN Reason Stop Dose Admin Apixaban 2.5 mg 09/10/17 10:21 09/17/17 09:26 Eliquis - PO 2.5 mg BID ANNA Administration Atorvastatin Calcium 10 mg 09/07/17 22:00 09/16/17 21:50 Lipitor - PO 10 mg HS ANNA Administration Benzocaine/Butamben/Tetracaine HCl 1 spray 09/07/17 10:15 09/07/17 11:08 Cetacaine [place] - TP 1 spray DAILY PRN Administration throat irritation Furosemide 40 mg 09/17/17 16:45 09/17/17 17:23 Lasix - PO 40 mg DAILY ANNA Administration Piperacillin Sod/Tazobactam 50 mls @ 100 mls/hr 09/11/17 21:30 09/17/17 17:24 Sod 3.375 gm/ Dextrose IVPB 100 mls/hr Q8H-IV ANNA Administration Protocol Metronidazole 500 mg in 100 mls @ 100 mls/hr 09/14/17 18:00 09/17/17 18:06 Flagyl 500mg Premixed Ivpb - IVPB 100 mls/hr Q8H-IV ANNA Administration Metoprolol Tartrate 100 mg 09/09/17 22:00 09/17/17 09:26 Lopressor - PO 100 mg BID ANNA Administration Metoprolol Tartrate 5 mg 09/09/17 15:40 Lopressor Injection - IVPB Q6H PRN TACHYCARDIA Neomycin/Polymyxin/Bacitracin 1 applic 09/13/17 22:00 09/17/17 09:27 Neosporin Topical Ointment - TP 1 applic BID ANNA Administration Nystatin 1 applic 09/07/17 10:00 09/17/17 09:27 Nystop Powder - TP 1 applic DAILY ANNA Administration Pantoprazole Sodium 40 mg 09/10/17 10:00 09/17/17 09:26 Protonix - PO 40 mg DAILY ANNA Administration Potassium Phos/Sodium Phos 1 packet 09/17/17 22:00 Phos-Nak Packet - PO 09/20/17 10:01 BID ANNA Spironolactone 25 mg 09/10/17 10:00 09/17/17 09:26 Aldactone - PO 25 mg DAILY ANNA Administration Laboratory Results - last 24 hr 09/17/17 09/17/17 07:45 07:45 WBC 10.3 H RBC 3.76 Hgb 11.2 Hct 33.5 MCV 89.1 MCH 29.8 MCHC 33.5 RDW 17.8 H Plt Count 406 MPV 7.7 Neutrophils % 82.6 Lymphocytes % 8.8 Monocytes % 5.8 Eosinophils % 2.0 Basophils % 0.8 Sodium 144 Potassium 3.6 Chloride 114 H Carbon Dioxide 22 Anion Gap 8 BUN 13 Creatinine 0.9 Creat Clearance w eGFR 59.51 Random Glucose 120 H Calcium 7.8 L Phosphorus 1.7 L Magnesium 1.6 L Total Bilirubin 0.5 AST 8 L ALT 8 L Alkaline Phosphatase 91 Total Protein 5.0 L Albumin 2.0 L Microbiology 09/11/17 20:40 Blood - Peripheral Venous Blood Culture - Final NO GROWTH AFTER 5 DAYS INCUBATION 09/11/17 20:35 Blood - Peripheral Venous Blood Culture - Final NO GROWTH AFTER 5 DAYS INCUBATION 09/09/17 12:45 Colon Fluid Salmonella/Shigella Culture - Final NO GROWTH OF SALMONELLA OR SHIGELLA SPECIES OBTAINED 09/09/17 12:45 Colon Fluid Campylobacter Culture - Final NO GROWTH OF CAMPYLOBACTER SPECIES OBTAINED 09/09/17 12:45 Colon Fluid Yersinia Culture - Final NO GROWTH OF YERSINIA SPECIES OBTAINED 09/09/17 12:45 Colon Fluid Vibrio Culture - Final NO GROWTH OF VIBRIO SPECIES OBTAINED 09/09/17 12:45 Colon Fluid Escherichia coli 0157 Culture - Final NO GROWTH OF E COLI 0157 OBTAINED 09/09/17 12:45 Stool Clostridium difficile Antigen (DOE) - Final 09/09/17 12:45 Stool Clostridium difficile Toxin Assay - Final CT scan results reviewed ASSESSMENT AND PLAN: 86 year old woman with a history of atrial fib, epilepsy, HTN, diverticulitis who presented to the ED with vomiting and diarrhea, found with acute diverticulitis/Partial SBO, now with resolved SBO with repeat imaging with pericolic abscess -Acute sigmoid diverticulitis with pericolic abscess -Partial SBO, resolved now -Vaginal/?Vulvar bleed -Hypokalemia -Hypophosphatemia -Hypernatremia -Hypomagnesemia -Atrial fibrillation -JAROD, resolved -Stage III CKD -HLD -Chronic diastolic HF, -Pulmonary HTN -HTN PLan: Improving, WBC better, afebrile, Repeat CT results noted, discussed with Dr. Pérez, clinically improved, non significant as discussed. Recommend outpatient follow up imaging but no additional intervention. Continue Zosyn/flagyl, transition to PO in 24 hours if continues to improve, discuss with ID. Serial abdominal exams. GI input appreciated. Renal/cardiology input appreciated. Off IVF. Resume lasix. Replete phos/Mg. MOnitor BP closely, avoid hydration for now given dependent edema and no clinical evidence of dehydration. long filler cigar roller machine input noted. H/h stable. Hold ACEi for now. Continue lopressor as BP tolerates. Resume Cardizem as BP tolerates. Continue aldactone. DVTPPX on eliquis Dispo in 24-48 hours if no new events. Plan discussed with patient and daughter, all questions answered.
--- NOTE | 2017-09-17 18:47 | PN ---
Physical Exam: SUBJECTIVE: Patient seen and examined. No SOB, no chest pain, no abdominal pain. Is moving her bowel and tolerating orally. No vomiting. Pt is getting repeat CT scan today. OBJECTIVE: Vital Signs Period Temp Pulse Resp BP Sys/Kendall Pulse Ox Last 24 Hr 97.6 F-98.1 F 82-93 20-22 104-147/60-85 95 Vital Signs Temp 97.7 F 09/17/17 14:51 Pulse 82 09/17/17 14:51 Resp 20 09/17/17 14:51 BP 147/85 09/17/17 14:51 Pulse Ox 95 09/16/17 21:00 Intake & Output 09/16/17 09/17/17 09/17/17 23:59 11:59 23:59 Intake Total 650 325 Balance 650 325 Weight 93.44 kg Intake: IVPB 100 Oral 550 325 Other: Voiding Method Toilet Toilet Toilet # Unmeasured Voids Void 2 3 2 Bowel Movement Yes Yes Yes # Bowel Movements 1 2 2 Weight Measurement Method Built in [facility] GENERAL: The patient is awake, alert, and fully oriented, in no acute distress. ENT: dry mucous membranes. NECK: supple. LUNGS: Breath sounds equal, basal creps bilaterally HEART: Regular rate and rhythm, S1, S2 without murmur ABDOMEN: Soft, nontender, nondistended, normoactive bowel sounds, no guarding EXTREMITIES: 2+ pulses, warm, well-perfused, bilateral pedal edema. NEUROLOGICAL: Normal speech, gait not observed. CBC, BMP 09/17/17 07:45 09/17/17 07:45 Laboratory Results - last 24 hr 09/17/17 09/17/17 07:45 07:45 WBC 10.3 H RBC 3.76 Hgb 11.2 Hct 33.5 MCV 89.1 MCH 29.8 MCHC 33.5 RDW 17.8 H Plt Count 406 MPV 7.7 Neutrophils % 82.6 Lymphocytes % 8.8 Monocytes % 5.8 Eosinophils % 2.0 Basophils % 0.8 Sodium 144 Potassium 3.6 Chloride 114 H Carbon Dioxide 22 Anion Gap 8 BUN 13 Creatinine 0.9 Creat Clearance w eGFR 59.51 Random Glucose 120 H Calcium 7.8 L Phosphorus 1.7 L Magnesium 1.6 L Total Bilirubin 0.5 AST 8 L ALT 8 L Alkaline Phosphatase 91 Total Protein 5.0 L Albumin 2.0 L Active Medications Generic Name Dose Route Start Last Admin Trade Name Freq PRN Reason Stop Dose Admin Apixaban 2.5 mg 09/10/17 10:21 09/17/17 09:26 Eliquis - PO 2.5 mg BID ANNA Administration Atorvastatin Calcium 10 mg 09/07/17 22:00 09/16/17 21:50 Lipitor - PO 10 mg HS ANNA Administration Benzocaine/Butamben/Tetracaine HCl 1 spray 09/07/17 10:15 09/07/17 11:08 Cetacaine [place] - TP 1 spray DAILY PRN Administration throat irritation Furosemide 40 mg 09/17/17 16:45 09/17/17 17:23 Lasix - PO 40 mg DAILY ANNA Administration Piperacillin Sod/Tazobactam 50 mls @ 100 mls/hr 09/11/17 21:30 09/17/17 17:24 Sod 3.375 gm/ Dextrose IVPB 100 mls/hr Q8H-IV ANNA Administration Protocol Metronidazole 500 mg in 100 mls @ 100 mls/hr 09/14/17 18:00 09/17/17 18:06 Flagyl 500mg Premixed Ivpb - IVPB 100 mls/hr Q8H-IV ANNA Administration Metoprolol Tartrate 100 mg 09/09/17 22:00 09/17/17 09:26 Lopressor - PO 100 mg BID ANNA Administration Metoprolol Tartrate 5 mg 09/09/17 15:40 Lopressor Injection - IVPB Q6H PRN TACHYCARDIA Neomycin/Polymyxin/Bacitracin 1 applic 09/13/17 22:00 09/17/17 09:27 Neosporin Topical Ointment - TP 1 applic BID ANNA Administration Nystatin 1 applic 09/07/17 10:00 09/17/17 09:27 Nystop Powder - TP 1 applic DAILY ANNA Administration Pantoprazole Sodium 40 mg 09/10/17 10:00 09/17/17 09:26 Protonix - PO 40 mg DAILY ANNA Administration Potassium Phos/Sodium Phos 1 packet 09/17/17 22:00 Phos-Nak Packet - PO 09/20/17 10:01 BID ANNA Spironolactone 25 mg 09/10/17 10:00 09/17/17 09:26 Aldactone - PO 25 mg DAILY ANNA Administration ASSESSMENT/PLAN: Pt is an 86 yo F with a PMHx of atrial fib, epilepsy, HTN, diverticulitis who presented with vomiting and diarrhea and found to have diverticulitis. # Acute diverticulitis White count downward trending Pt passing stool, non bloody Day 6 on Zosyn Day [address] of abdomen with oral contrast (09/13/17): Worsening diverticulits with pericolic abscess (image may be lagging behind clinical features) not drainable Now on full clear diet Resume iv lasix 40mg daily Repeat CT abd/pelvis done 09/16/17-Slight improvement in diverticulitis and pericolic abscess of 09/13, new fluid collection noted anteriorly within the lower pelvis extending from the uterine fundus. 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 For outpatient urology follow up # Acute Partial SBO resolved, s/p NGT , On soft diet #Afib: Permanent atrial fibrillation Cont Lopressor Cont Eliquis Cardizem on hold # Hyperlipidemia continue statin # Chronic diastolic heart failure/pulmonary HTN, Pt has been on Lasix, currently on hold while being rehydrated and NPO Will likely resume lasix tomorrow Aldactone held with low BP # HTN Cont Lopressor, Hold Lisinopril #Vaginal Bleeding; Noted in diaper LIZZ- negative for blood Sexer consulted- pt and family declined further evaluation Stable CBC #Physical therapy DvT Px: Eliquis #FEN Replete electrolytes- mg , ph, Dispo: For likely discharge over weekend Visit type - Emergency Visit Emergency Visit: Yes ED Registration Date: 09/07/17 Care time: The patient presented to the Emergency Department on the above date and was hospitalized for further evaluation of their emergent condition. - New Patient This patient is new to me today: No - Critical Care Critical Care patient: No - Discharge Referral Referred to [facility] Med [facility] No
--- NOTE | 2017-09-17 19:36 | PN ---
Progress Note, Physician History of Present Illness: Awake, alert OOB in chair No c/o abdominal pain. No N/V Tolerating diet Reports formed stools No c/o fever/ chills No c/o dysuria WBC improved now 10.9K Repeat BC no growth Repeat CT shows new collection - Current Medication List Current Medications: Active Medications Apixaban (Eliquis -) 2.5 mg PO BID [facility] Last Admin: 09/17/17 09:26 Dose: 2.5 mg Atorvastatin Calcium (Lipitor -) 10 mg PO HS [facility] Last Admin: 09/16/17 21:50 Dose: 10 mg Benzocaine/Butamben/Tetracaine HCl (Cetacaine [place] -) 1 spray TP DAILY PRN PRN Reason: throat irritation Last Admin: 09/07/17 11:08 Dose: 1 spray Furosemide (Lasix -) 40 mg PO DAILY [facility] Last Admin: 09/17/17 17:23 Dose: 40 mg Piperacillin Sod/Tazobactam (Sod 3.375 gm/ Dextrose) 50 mls @ 100 mls/hr IVPB Q8H-IV [facility] PRN Reason: Protocol Last Admin: 09/17/17 17:24 Dose: 100 mls/hr Metronidazole (Flagyl 500mg Premixed Ivpb -) 500 mg in 100 mls @ 100 mls/hr IVPB Q8H-IV [facility] Last Admin: 09/17/17 18:06 Dose: 100 mls/hr Metoprolol Tartrate (Lopressor -) 100 mg PO BID [facility] Last Admin: 09/17/17 09:26 Dose: 100 mg Metoprolol Tartrate (Lopressor Injection -) 5 mg IVPB Q6H PRN PRN Reason: TACHYCARDIA Neomycin/Polymyxin/Bacitracin (Neosporin Topical Ointment -) 1 applic TP BID [facility] Last Admin: 09/17/17 09:27 Dose: 1 applic Nystatin (Nystop Powder -) 1 applic TP DAILY [facility] Last Admin: 09/17/17 09:27 Dose: 1 applic Pantoprazole Sodium (Protonix -) 40 mg PO DAILY [facility] Last Admin: 09/17/17 09:26 Dose: 40 mg Potassium Phos/Sodium Phos (Phos-Nak Packet -) 1 packet PO BID [facility] Stop: 09/20/17 10:01 Spironolactone (Aldactone -) 25 mg PO DAILY [facility] Last Admin: 09/17/17 09:26 Dose: 25 mg - Objective Vital Signs: Vital Signs Temperature 97.7 F 09/17/17 14:51 Pulse Rate 82 09/17/17 14:51 Respiratory Rate 20 09/17/17 14:51 Blood Pressure 147/85 09/17/17 14:51 O2 Sat by Pulse Oximetry (%) 95 09/16/17 21:00 Constitutional: Yes: No Distress Eyes: Yes: Conjunctiva Clear Cardiovascular: Yes: Regular Rate and Rhythm, S1, S2 Respiratory: Yes: CTA Bilaterally Gastrointestinal: Yes: Normal Bowel Sounds, Soft, Abdomen, Obese, Other (no tenderness elicited) Edema: Yes Labs: CBC, BMP 09/17/17 07:45 09/17/17 07:45 INR, PTT INR 1.55 (0.82-1.09) H 09/15/17 08:42 Assessment/Plan Leukocytosis- improving Diverticulitis/ diverticular abscess Continue IV antibiotic therapy through weekend Discussed with family at bedside
[2017-09-17] MEDS: ATORVASTATIN CA 10 MG TABLET (FP) PO SCH (21:29)
[2017-09-17] MEDS: NAPH,MB-DB/K PH,MBDB POWDER PACKET PO SCH (21:29)
[2017-09-18] MEDS ORDERED: PIPERACILLIN/TAZOBACTAM 3.375 GM VIAL IVPB ONE ×4 (02:35→21:50)
[2017-09-18] MEDS ORDERED: DEXTROSE 5%-WATER - 50 ML IVPB ONE ×4 (02:36→21:51)
[2017-09-18] MEDS: PIPERACILLIN/TAZOB 3.375 GM 3.375 GM in DEXTROSE 5%-WATER - 50 ML IVPB SCH ×3 (02:43→20:43)
[2017-09-18 08:31] LABS: BASO % 0.6 % (0-2.0); EOS % 1.7 % (0-4.5); HEMATOCRIT 32.6 % (32.4-45.2); LYMPH % 13.9 % (8-40); MCH 30.1 pg (25.7-33.7); MCHC 33.7 g/dl (32.0-36.0); MEAN CELL VOLUME 89.3 fl (80-96); MEAN PLT VOLUME 7.4 fl (7.5-11.1); MONO % 5.7 % (3.8-10.2); NEUT % 78.1 % (42.8-82.8); PLATELET COUNT 424 K/MM3 (134-434); RBC 3.65 M/mm3 (3.60-5.2); RDW 17.8 % (11.6-15.6)
[2017-09-18 09:09] LABS: CHLORIDE 113 mmol/L (98-107); POTASSIUM 3.6 mmol/L (3.5-5.1); SODIUM 145 mmol/L (136-145)
[2017-09-18 09:14] LABS: ANION GAP 8 (8-16); BLOOD UREA NITROGEN 11 mg/dL (7-18); CO2 24 mmol/L (21-32); CREATININE 0.9 mg/dL (0.55-1.02); GLUCOSE,RANDOM 104 mg/dL (74-106); MAGNESIUM 1.6 mg/dL (1.8-2.4); PHOSPHOROUS 2.2 mg/dL (2.5-4.9)
[2017-09-18] MEDS ORDERED: PT OWN MED DRAWER 7, Y5N ONE ×3 (09:33→20:16)
--- NOTE | 2017-09-18 09:35 | PN ---
Teaching Attending Note Name of Resident: Marvin Retana SUBJECTIVE: Patient seen and examined. No nausea, vomiting, abdominal pain or diarrhea. Tolerating diet well, no new fevers or chills. OBJECTIVE: Vital Signs Period Temp Pulse Resp BP Sys/Kendall Pulse Ox Last 24 Hr 97.7 F-98.5 F 78-85 18-20 108-147/53-85 95 Intake & Output 09/15/17 09/16/17 09/17/17 09/18/17 23:59 23:59 23:59 23:59 Intake Total 2100 1000 425 200 Balance 2100 1000 425 200 Weight 195 lb 5 oz 197 lb 206 lb 209 lb General: sitting in bed in no acute distress Abdomen:soft, obese, NT throughout, no voluntary or involuntary guarding or rigidity, positive bowel sounds Extremities: 2+pitting pedal edema with some improvement from yesterday. Chest: Decreased effort but no rales or wheezing appreciated Home Medication List Medication Instructions Recorded Confirmed Type Aspirin 81 mg PO DAILY 09/06/17 09/06/17 History Diltiazem Cd [Cardizem Cd -] 180 mg PO DAILY 09/06/17 09/06/17 History Furosemide [Lasix -] 40 mg PO HS 09/06/17 09/06/17 History Furosemide [Lasix -] 80 mg PO AM 09/06/17 09/06/17 History Metoprolol Succinate [Toprol Xl -] 100 mg PO BID 09/06/17 09/06/17 History Potassium Chloride [K-Dur -] 20 meq PO DAILY 09/06/17 09/06/17 History Pravastatin Sodium [Pravachol] 40 mg PO DAILY 09/06/17 09/06/17 History Spironolactone [Aldactone] 25 mg PO DAILY 09/06/17 09/06/17 History Apixaban [Eliquis] 5 mg PO BID 09/07/17 09/07/17 History Active Medications Generic Name Dose Route Start Last Admin Trade Name Freq PRN Reason Stop Dose Admin Apixaban 2.5 mg 09/10/17 10:21 09/17/17 21:29 Eliquis - PO 2.5 mg BID ANNA Administration Atorvastatin Calcium 10 mg 09/07/17 22:00 09/17/17 21:29 Lipitor - PO 10 mg HS ANNA Administration Benzocaine/Butamben/Tetracaine HCl 1 spray 09/07/17 10:15 09/07/17 11:08 Cetacaine [place] - TP 1 spray DAILY PRN Administration throat irritation Furosemide 40 mg 09/17/17 16:45 09/17/17 17:23 Lasix - PO 40 mg DAILY ANNA Administration Piperacillin Sod/Tazobactam 50 mls @ 100 mls/hr 09/11/17 21:30 09/18/17 02:43 Sod 3.375 gm/ Dextrose IVPB 100 mls/hr Q8H-IV ANNA Administration Protocol Metronidazole 500 mg in 100 mls @ 100 mls/hr 09/14/17 18:00 09/18/17 02:43 Flagyl 500mg Premixed Ivpb - IVPB 100 mls/hr Q8H-IV ANNA Administration Metoprolol Tartrate 100 mg 09/09/17 22:00 09/17/17 21:29 Lopressor - PO 100 mg BID ANNA Administration Metoprolol Tartrate 5 mg 09/09/17 15:40 Lopressor Injection - IVPB Q6H PRN TACHYCARDIA Neomycin/Polymyxin/Bacitracin 1 applic 09/13/17 22:00 09/17/17 22:25 Neosporin Topical Ointment - TP 1 applic BID ANNA Administration Nystatin 1 applic 09/07/17 10:00 09/17/17 09:27 Nystop Powder - TP 1 applic DAILY ANNA Administration Pantoprazole Sodium 40 mg 09/10/17 10:00 09/17/17 09:26 Protonix - PO 40 mg DAILY ANNA Administration Potassium Phos/Sodium Phos 1 packet 09/17/17 22:00 09/17/17 21:29 Phos-Nak Packet - PO 09/20/17 10:01 1 packet BID ANNA Administration Spironolactone 25 mg 09/10/17 10:00 09/17/17 09:26 Aldactone - PO 25 mg DAILY ANNA Administration Laboratory Results - last 24 hr 09/17/17 09/18/17 09/18/17 07:45 07:45 07:45 WBC 10.0 RBC 3.65 Hgb 11.0 Hct 32.6 MCV 89.3 MCH 30.1 MCHC 33.7 RDW 17.8 H Plt Count 424 MPV 7.4 L Neutrophils % 78.1 Lymphocytes % 13.9 D Monocytes % 5.7 Eosinophils % 1.7 Basophils % 0.6 Sodium 144 145 Potassium 3.6 3.6 Chloride 114 H 113 H Carbon Dioxide 22 24 Anion Gap 8 8 BUN 13 11 Creatinine 0.9 0.9 Creat Clearance w eGFR 59.51 Random Glucose 120 H 104 Calcium 7.8 L 8.0 L Phosphorus 1.7 L 2.2 L Magnesium 1.6 L 1.6 L Total Bilirubin 0.5 AST 8 L ALT 8 L Alkaline Phosphatase 91 Total Protein 5.0 L Albumin 2.0 L Microbiology 09/11/17 20:40 Blood - Peripheral Venous Blood Culture - Final NO GROWTH AFTER 5 DAYS INCUBATION 09/11/17 20:35 Blood - Peripheral Venous Blood Culture - Final NO GROWTH AFTER 5 DAYS INCUBATION 09/09/17 12:45 Colon Fluid Salmonella/Shigella Culture - Final NO GROWTH OF SALMONELLA OR SHIGELLA SPECIES OBTAINED 09/09/17 12:45 Colon Fluid Campylobacter Culture - Final NO GROWTH OF CAMPYLOBACTER SPECIES OBTAINED 09/09/17 12:45 Colon Fluid Yersinia Culture - Final NO GROWTH OF YERSINIA SPECIES OBTAINED 09/09/17 12:45 Colon Fluid Vibrio Culture - Final NO GROWTH OF VIBRIO SPECIES OBTAINED 09/09/17 12:45 Colon Fluid Escherichia coli 0157 Culture - Final NO GROWTH OF E COLI 0157 OBTAINED 09/09/17 12:45 Stool Clostridium difficile Antigen (DOE) - Final 09/09/17 12:45 Stool Clostridium difficile Toxin Assay - Final ASSESSMENT AND PLAN: 86 year old woman with a history of atrial fib, epilepsy, HTN, diverticulitis who presented to the ED with vomiting and diarrhea, found with acute diverticulitis/Partial SBO, now with resolved SBO with repeat imaging with pericolic abscess -Acute sigmoid diverticulitis with pericolic abscess -Partial SBO, resolved now -Vaginal/?Vulvar bleed -Hypokalemia -Hypophosphatemia -Hypernatremia -Hypomagnesemia -Atrial fibrillation -JAROD, resolved -Stage III CKD -HLD -Chronic diastolic HF, -Pulmonary HTN -HTN PLan: Leucocytosis resolved, afebrile, asymptomatic, tolerating diet well. Repeat CT results noted, discussed with Dr. Pérez, clinically improved, non significant as discussed. Recommend outpatient follow up imaging but no additional intervention. Continue Zosyn/flagyl over next 48 hours, likely transition to PO on Wednesday if no concerns. Serial abdominal exams. GI input appreciated. Renal/cardiology input appreciated. Off IVF. Resumed lasix. Replete phos/Mg. KCL 40 meqx 1 today. MOnitor BP closely, avoid hydration for now given dependent edema and no clinical evidence of dehydration. 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 H/h stable. Hold ACEi for now. Continue lopressor as BP tolerates. Resume Cardizem as BP tolerates. Continue aldactone. DVTPPX on eliquis Dispo planning in 48 hours if no new events. Plan discussed with patient and daughter at bedside in detail, all questions answered.
[2017-09-18] MEDS ORDERED: MAGNESIUM SULF 50% (8.12 MEQ/2 ML-1 GM VIAL) IVPB ONE (09:36)
[2017-09-18] MEDS: METOPROLOL TARTRATE 50 MG TABLET (FP) PO SCH ×2 (09:59→21:03)
[2017-09-18] MEDS: SPIRONOLACTONE 25 MG TABLET (FP) PO SCH (09:59)
[2017-09-18] MEDS: APIXABAN 2.5 MG TABLET PO SCH ×2 (09:59→21:03)
[2017-09-18] MEDS: PANTOPRAZOLE 40 MG TABLET (FP) PO SCH (09:59)
[2017-09-18] MEDS: FUROSEMIDE 40 MG TABLET (FP) PO SCH (09:59)
[2017-09-18] MEDS: NAPH,MB-DB/K PH,MBDB POWDER PACKET PO SCH ×2 (10:00→21:03)
[2017-09-18] MEDS: NEOMYCIN/POLYMYXIN/BACITRACIN (TRIPLE ANTIBIOTIC) 28 GM OINTMENT TP SCH ×2 (10:09→21:03)
[2017-09-18] MEDS: NYSTATIN POWDER 100,000 UNITS/GM - 15 GM TOPICAL POWDER TP SCH (10:09)
--- NOTE | 2017-09-18 11:28 | PN ---
Progress Note (short form) - Note Progress Note: Attending Surgeon No c/o tolerating diet and having BM's VSS AF abdomen-benign WBC 10.o IMP: improving PLAN: Continue present tx. as per primary team and GI and ID. Bahman Pérez MD FACS
--- NOTE | 2017-09-18 13:14 | PN ---
Progress Note, Physician History of Present Illness: Pt seen and examined at bedside. She is tolerating diet. She denies shortness of breath. - Current Medication List Current Medications: Active Medications Apixaban (Eliquis -) 2.5 mg PO BID [facility] Last Admin: 09/18/17 09:59 Dose: 2.5 mg Atorvastatin Calcium (Lipitor -) 10 mg PO HS [facility] Last Admin: 09/17/17 21:29 Dose: 10 mg Benzocaine/Butamben/Tetracaine HCl (Cetacaine [place] -) 1 spray TP DAILY PRN PRN Reason: throat irritation Last Admin: 09/07/17 11:08 Dose: 1 spray Furosemide (Lasix -) 40 mg PO DAILY [facility] Last Admin: 09/18/17 09:59 Dose: 40 mg Piperacillin Sod/Tazobactam (Sod 3.375 gm/ Dextrose) 50 mls @ 100 mls/hr IVPB Q8H-IV ANNA PRN Reason: Protocol Last Admin: 09/18/17 10:01 Dose: 100 mls/hr Metronidazole (Flagyl 500mg Premixed Ivpb -) 500 mg in 100 mls @ 100 mls/hr IVPB Q8H-IV [facility] Last Admin: 09/18/17 10:00 Dose: 100 mls/hr Metoprolol Tartrate (Lopressor -) 100 mg PO BID [facility] Last Admin: 09/18/17 09:59 Dose: 100 mg Metoprolol Tartrate (Lopressor Injection -) 5 mg IVPB Q6H PRN PRN Reason: TACHYCARDIA Neomycin/Polymyxin/Bacitracin (Neosporin Topical Ointment -) 1 applic TP BID [facility] Last Admin: 09/18/17 10:09 Dose: 1 applic Nystatin (Nystop Powder -) 1 applic TP DAILY [facility] Last Admin: 09/18/17 10:09 Dose: 1 applic Pantoprazole Sodium (Protonix -) 40 mg PO DAILY [facility] Last Admin: 09/18/17 09:59 Dose: 40 mg Potassium Phos/Sodium Phos (Phos-Nak Packet -) 1 packet PO BID [facility] Stop: 09/20/17 10:01 Last Admin: 09/18/17 10:00 Dose: 1 packet Spironolactone (Aldactone -) 25 mg PO DAILY [facility] Last Admin: 09/18/17 09:59 Dose: 25 mg - Objective Vital Signs: Vital Signs Temperature 98.5 F 09/18/17 08:00 Pulse Rate 85 09/18/17 08:00 Respiratory Rate 18 09/18/17 08:00 Blood Pressure 135/79 09/18/17 08:00 O2 Sat by Pulse Oximetry (%) 96 09/18/17 09:00 Constitutional: Yes: Calm Eyes: Yes: Conjunctiva Clear HENT: Yes: Atraumatic Neck: Yes: Supple Cardiovascular: Yes: S1, S2 Respiratory: Yes: CTA Bilaterally Gastrointestinal: Yes: Normal Bowel Sounds, Soft, Abdomen, Obese Genitourinary: Yes: WNL Musculoskeletal: Yes: WNL Edema: Yes Edema: LLE: 1+, RLE: 1+ Neurological: Yes: Oriented Psychiatric: Yes: Oriented Labs: CBC, BMP 09/18/17 07:45 09/18/17 07:45 INR, PTT INR 1.55 (0.82-1.09) H 09/15/17 08:42 Problem List - Problems (1) JAROD (acute kidney injury) Code(s): N17.9 - ACUTE KIDNEY FAILURE, UNSPECIFIED (2) Diverticulitis Code(s): K57.92 - DVTRCLI OF INTEST, PART UNSP, W/O PERF OR ABSCESS W/O BLEED (3) Partial obstruction of small intestine Code(s): K56.600 - PARTIAL INTESTINAL OBSTRUCTION, UNSPECIFIED TO CAUSE Assessment/Plan Current Medications Generic Name Dose Route Start Last Admin Trade Name Freq PRN Reason Stop Dose Admin Apixaban 2.5 mg 09/10/17 10:21 09/18/17 09:59 Eliquis - PO 2.5 mg BID ANNA Administration Atorvastatin Calcium 10 mg 09/07/17 22:00 09/17/17 21:29 Lipitor - PO 10 mg HS ANNA Administration Benzocaine/Butamben/Tetracaine HCl 1 spray 09/07/17 10:15 09/07/17 11:08 Cetacaine [place] - TP 1 spray DAILY PRN Administration throat irritation Furosemide 40 mg 09/17/17 16:45 09/18/17 09:59 Lasix - PO 40 mg DAILY ANNA Administration Piperacillin Sod/Tazobactam 50 mls @ 100 mls/hr 09/11/17 21:30 09/18/17 10:01 Sod 3.375 gm/ Dextrose IVPB 100 mls/hr Q8H-IV ANNA Administration Protocol Metronidazole 500 mg in 100 mls @ 100 mls/hr 09/14/17 18:00 09/18/17 10:00 Flagyl 500mg Premixed Ivpb - IVPB 100 mls/hr Q8H-IV ANNA Administration Metoprolol Tartrate 100 mg 09/09/17 22:00 09/18/17 09:59 Lopressor - PO 100 mg BID ANNA Administration Metoprolol Tartrate 5 mg 09/09/17 15:40 Lopressor Injection - IVPB Q6H PRN TACHYCARDIA Neomycin/Polymyxin/Bacitracin 1 applic 09/13/17 22:00 09/18/17 10:09 Neosporin Topical Ointment - TP 1 applic BID ANNA Administration Nystatin 1 applic 09/07/17 10:00 09/18/17 10:09 Nystop Powder - TP 1 applic DAILY ANNA Administration Pantoprazole Sodium 40 mg 09/10/17 10:00 09/18/17 09:59 Protonix - PO 40 mg DAILY ANNA Administration Potassium Phos/Sodium Phos 1 packet 09/17/17 22:00 09/18/17 10:00 Phos-Nak Packet - PO 09/20/17 10:01 1 packet BID ANNA Administration Spironolactone 25 mg 09/10/17 10:00 09/18/17 09:59 Aldactone - PO 25 mg DAILY ANNA Administration Impression 1. JAROD 2. a-fib 3. CHF 4. pulm HTN 5. CAD 6. partial sbo 7. dilated right renal pelvis Plan - monitor renal function - replace mag - replace phos - pt tolerating diet - cont lasix and spironolactone - renal function is stable - abx per ID - consider urology eval
[2017-09-18] MEDS: ATORVASTATIN CA 10 MG TABLET (FP) PO SCH (21:03)
[2017-09-19] MEDS: PIPERACILLIN/TAZOB 3.375 GM 3.375 GM in DEXTROSE 5%-WATER - 50 ML IVPB SCH ×3 (02:35→17:50)
[2017-09-19 08:34] LABS: BASO % 0.9 % (0-2.0); EOS % 1.7 % (0-4.5); HEMATOCRIT 33.6 % (32.4-45.2); HEMOGLOBIN 11.1 GM/dL (10.7-15.3); LYMPH % 12.1 % (8-40); MCH 29.9 pg (25.7-33.7); MCHC 33.2 g/dl (32.0-36.0); MEAN CELL VOLUME 90.2 fl (80-96); MEAN PLT VOLUME 7.6 fl (7.5-11.1); MONO % 5.8 % (3.8-10.2); NEUT % 79.5 % (42.8-82.8); PLATELET COUNT 387 K/MM3 (134-434); RBC 3.72 M/mm3 (3.60-5.2); RDW 18.1 % (11.6-15.6); WHITE BLOOD COUNT 11.3 K/mm3 (4.0-10.0)
[2017-09-19 09:02] LABS: ANION GAP 9 (8-16); BLOOD UREA NITROGEN 10 mg/dL (7-18); CALCIUM 7.8 mg/dL (8.5-10.1); CHLORIDE 112 mmol/L (98-107); CO2 23 mmol/L (21-32); GLUCOSE,RANDOM 113 mg/dL (74-106); MAGNESIUM 1.5 mg/dL (1.8-2.4); POTASSIUM 3.6 mmol/L (3.5-5.1); SODIUM 144 mmol/L (136-145)
[2017-09-19 09:03] LABS: CREATININE 0.8 mg/dL (0.55-1.02); PHOSPHOROUS 1.9 mg/dL (2.5-4.9)
[2017-09-19] MEDS ORDERED: PT OWN MED DRAWER 7, Y5N ONE (10:32)
[2017-09-19] MEDS ORDERED: PIPERACILLIN/TAZOBACTAM 3.375 GM VIAL IVPB ONE ×2 (10:32→17:48)
[2017-09-19] MEDS ORDERED: DEXTROSE 5%-WATER - 50 ML IVPB ONE ×2 (10:33→17:48)
[2017-09-19] MEDS: SPIRONOLACTONE 25 MG TABLET (FP) PO SCH (10:51)
[2017-09-19] MEDS: NAPH,MB-DB/K PH,MBDB POWDER PACKET PO SCH ×2 (10:51→21:32)
[2017-09-19] MEDS: PANTOPRAZOLE 40 MG TABLET (FP) PO SCH (10:51)
[2017-09-19] MEDS: METOPROLOL TARTRATE 50 MG TABLET (FP) PO SCH ×2 (10:51→21:32)
[2017-09-19] MEDS: FUROSEMIDE 40 MG TABLET (FP) PO SCH ×2 (10:51→15:41)
[2017-09-19] MEDS: APIXABAN 2.5 MG TABLET PO SCH ×2 (10:51→21:32)
[2017-09-19] MEDS: NYSTATIN POWDER 100,000 UNITS/GM - 15 GM TOPICAL POWDER TP SCH (10:53)
[2017-09-19] MEDS: NEOMYCIN/POLYMYXIN/BACITRACIN (TRIPLE ANTIBIOTIC) 28 GM OINTMENT TP SCH ×2 (10:53→21:33)
[2017-09-19] MEDS ORDERED: MAGNESIUM SULF 50% (8.12 MEQ/2 ML-1 GM VIAL) IVPB ONE (14:06)
--- NOTE | 2017-09-19 14:06 | PN ---
Progress Note, Physician History of Present Illness: Pt seen and examined at bedside. She is awake and alert. She is tolerating diet. - Current Medication List Current Medications: Active Medications Apixaban (Eliquis -) 2.5 mg PO BID [facility] Last Admin: 09/19/17 10:51 Dose: 2.5 mg Atorvastatin Calcium (Lipitor -) 10 mg PO HS [facility] Last Admin: 09/18/17 21:03 Dose: 10 mg Benzocaine/Butamben/Tetracaine HCl (Cetacaine [place] -) 1 spray TP DAILY PRN PRN Reason: throat irritation Last Admin: 09/07/17 11:08 Dose: 1 spray Furosemide (Lasix -) 40 mg PO DAILY [facility] Last Admin: 09/19/17 10:51 Dose: 40 mg Piperacillin Sod/Tazobactam (Sod 3.375 gm/ Dextrose) 50 mls @ 100 mls/hr IVPB Q8H-IV ANNA PRN Reason: Protocol Last Admin: 09/19/17 10:51 Dose: 100 mls/hr Metronidazole (Flagyl 500mg Premixed Ivpb -) 500 mg in 100 mls @ 100 mls/hr IVPB Q8H-IV ANNA Last Admin: 09/19/17 10:52 Dose: 100 mls/hr Metoprolol Tartrate (Lopressor -) 100 mg PO BID [facility] Last Admin: 09/19/17 10:51 Dose: 100 mg Metoprolol Tartrate (Lopressor Injection -) 5 mg IVPB Q6H PRN PRN Reason: TACHYCARDIA Neomycin/Polymyxin/Bacitracin (Neosporin Topical Ointment -) 1 applic TP BID [facility] Last Admin: 09/19/17 10:53 Dose: 1 applic Nystatin (Nystop Powder -) 1 applic TP DAILY [facility] Last Admin: 09/19/17 10:53 Dose: 1 applic Pantoprazole Sodium (Protonix -) 40 mg PO DAILY [facility] Last Admin: 09/19/17 10:51 Dose: 40 mg Potassium Phos/Sodium Phos (Phos-Nak Packet -) 1 packet PO BID [facility] Stop: 09/20/17 10:01 Last Admin: 09/19/17 10:51 Dose: 1 packet Spironolactone (Aldactone -) 25 mg PO DAILY [facility] Last Admin: 09/19/17 10:51 Dose: 25 mg - Objective Vital Signs: Vital Signs Temperature 98.5 F 09/19/17 06:58 Pulse Rate 83 09/19/17 06:58 Respiratory Rate 20 09/19/17 06:58 Blood Pressure 128/81 09/19/17 06:58 O2 Sat by Pulse Oximetry (%) 96 09/18/17 19:47 Constitutional: Yes: Calm Eyes: Yes: Conjunctiva Clear HENT: Yes: Atraumatic Neck: Yes: Supple Cardiovascular: Yes: S1, S2 Respiratory: Yes: CTA Bilaterally Gastrointestinal: Yes: Soft, Abdomen, Obese Genitourinary: Yes: WNL Musculoskeletal: Yes: WNL Edema: Yes Edema: LLE: 1+, RLE: 1+ Neurological: Yes: Oriented Psychiatric: Yes: Oriented Labs: CBC, BMP 09/19/17 08:09 09/19/17 08:09 INR, PTT INR 1.55 (0.82-1.09) H 09/15/17 08:42 Problem List - Problems (1) JAROD (acute kidney injury) Code(s): N17.9 - ACUTE KIDNEY FAILURE, UNSPECIFIED (2) Diverticulitis Code(s): K57.92 - DVTRCLI OF INTEST, PART UNSP, W/O PERF OR ABSCESS W/O BLEED (3) Partial obstruction of small intestine Code(s): K56.600 - PARTIAL INTESTINAL OBSTRUCTION, UNSPECIFIED TO CAUSE Assessment/Plan Current Medications Generic Name Dose Route Start Last Admin Trade Name Freq PRN Reason Stop Dose Admin Apixaban 2.5 mg 09/10/17 10:21 09/19/17 10:51 Eliquis - PO 2.5 mg BID ANNA Administration Atorvastatin Calcium 10 mg 09/07/17 22:00 09/18/17 21:03 Lipitor - PO 10 mg HS ANNA Administration Benzocaine/Butamben/Tetracaine HCl 1 spray 09/07/17 10:15 09/07/17 11:08 Cetacaine [place] - TP 1 spray DAILY PRN Administration throat irritation Furosemide 40 mg 09/17/17 16:45 09/19/17 10:51 Lasix - PO 40 mg DAILY ANNA Administration Piperacillin Sod/Tazobactam 50 mls @ 100 mls/hr 09/11/17 21:30 09/19/17 10:51 Sod 3.375 gm/ Dextrose IVPB 100 mls/hr Q8H-IV ANNA Administration Protocol Metronidazole 500 mg in 100 mls @ 100 mls/hr 09/14/17 18:00 09/19/17 10:52 Flagyl 500mg Premixed Ivpb - IVPB 100 mls/hr Q8H-IV ANNA Administration Metoprolol Tartrate 100 mg 09/09/17 22:00 09/19/17 10:51 Lopressor - PO 100 mg BID ANNA Administration Metoprolol Tartrate 5 mg 09/09/17 15:40 Lopressor Injection - IVPB Q6H PRN TACHYCARDIA Neomycin/Polymyxin/Bacitracin 1 applic 09/13/17 22:00 09/19/17 10:53 Neosporin Topical Ointment - TP 1 applic BID ANNA Administration Nystatin 1 applic 09/07/17 10:00 09/19/17 10:53 Nystop Powder - TP 1 applic DAILY ANNA Administration Pantoprazole Sodium 40 mg 09/10/17 10:00 09/19/17 10:51 Protonix - PO 40 mg DAILY ANNA Administration Potassium Phos/Sodium Phos 1 packet 09/17/17 22:00 09/19/17 10:51 Phos-Nak Packet - PO 09/20/17 10:01 1 packet BID ANNA Administration Spironolactone 25 mg 09/10/17 10:00 09/19/17 10:51 Aldactone - PO 25 mg DAILY ANNA Administration Impression 1. JAROD 2. a-fib 3. CHF 4. pulm HTN 5. CAD 6. partial sbo 7. dilated right renal pelvis Plan - increase dose of lasix to BID - cont spironolactone - pt tolerating diet - replace mag and phos - renal function is stable - abx per ID - consider urology eval
[2017-09-19] MEDS ORDERED: MAGNESIUM SULFATE IN WATER 2 GM/50 ML IVPB IVPB ONE (14:15)
--- NOTE | 2017-09-19 15:29 | PN ---
Teaching Attending Note Name of Resident: Marvin Retana SUBJECTIVE: Patient seen and examined. no nausea, vomiting, abdominal pain. dyspneic with minimal exertion, just came back from bathroom. OBJECTIVE: Vital Signs Period Temp Pulse Resp BP Sys/Kendall Pulse Ox Last 24 Hr 98.5 F-99.4 F 80-90 18-20 128-132/65-81 96 Intake & Output 09/16/17 09/17/17 09/18/17 09/19/17 23:59 23:59 23:59 23:59 Intake Total 9773 040 7376 850 Output Total 600 Balance 1438 604 5068 250 Weight 197 lb 206 lb 209 lb 205 lb General: sitting in chair in no acute distress Abdomen:soft, obese, NT throughout, no voluntary or involuntary guarding or rigidity Extremities: 2+ bilateral pedal edema Chest; Bibasilar rales Home Medication List Medication Instructions Recorded Confirmed Type Aspirin 81 mg PO DAILY 09/06/17 09/06/17 History Diltiazem Cd [Cardizem Cd -] 180 mg PO DAILY 09/06/17 09/06/17 History Furosemide [Lasix -] 40 mg PO HS 09/06/17 09/06/17 History Furosemide [Lasix -] 80 mg PO AM 09/06/17 09/06/17 History Metoprolol Succinate [Toprol Xl -] 100 mg PO BID 09/06/17 09/06/17 History Potassium Chloride [K-Dur -] 20 meq PO DAILY 09/06/17 09/06/17 History Pravastatin Sodium [Pravachol] 40 mg PO DAILY 09/06/17 09/06/17 History Spironolactone [Aldactone] 25 mg PO DAILY 09/06/17 09/06/17 History Apixaban [Eliquis] 5 mg PO BID 09/07/17 09/07/17 History Active Medications Generic Name Dose Route Start Last Admin Trade Name Freq PRN Reason Stop Dose Admin Apixaban 2.5 mg 09/10/17 10:21 09/19/17 10:51 Eliquis - PO 2.5 mg BID ANNA Administration Atorvastatin Calcium 10 mg 09/07/17 22:00 09/18/17 21:03 Lipitor - PO 10 mg HS ANNA Administration Benzocaine/Butamben/Tetracaine HCl 1 spray 09/07/17 10:15 09/07/17 11:08 Cetacaine [place] - TP 1 spray DAILY PRN Administration throat irritation Furosemide 40 mg 09/19/17 14:15 Lasix - PO BID@0600,1400 ANNA Piperacillin Sod/Tazobactam 50 mls @ 100 mls/hr 09/11/17 21:30 09/19/17 10:51 Sod 3.375 gm/ Dextrose IVPB 100 mls/hr Q8H-IV ANNA Administration Protocol Metronidazole 500 mg in 100 mls @ 100 mls/hr 09/14/17 18:00 09/19/17 10:52 Flagyl 500mg Premixed Ivpb - IVPB 100 mls/hr Q8H-IV ANNA Administration Metoprolol Tartrate 100 mg 09/09/17 22:00 09/19/17 10:51 Lopressor - PO 100 mg BID ANNA Administration Metoprolol Tartrate 5 mg 09/09/17 15:40 Lopressor Injection - IVPB Q6H PRN TACHYCARDIA Neomycin/Polymyxin/Bacitracin 1 applic 09/13/17 22:00 09/19/17 10:53 Neosporin Topical Ointment - TP 1 applic BID ANNA Administration Nystatin 1 applic 09/07/17 10:00 09/19/17 10:53 Nystop Powder - TP 1 applic DAILY ANNA Administration Pantoprazole Sodium 40 mg 09/10/17 10:00 09/19/17 10:51 Protonix - PO 40 mg DAILY ANNA Administration Potassium Phos/Sodium Phos 1 packet 09/17/17 22:00 09/19/17 10:51 Phos-Nak Packet - PO 09/20/17 10:01 1 packet BID ANNA Administration Spironolactone 25 mg 09/10/17 10:00 09/19/17 10:51 Aldactone - PO 25 mg DAILY ANNA Administration Laboratory Results - last 24 hr 09/19/17 09/19/17 08:09 08:09 WBC 11.3 H RBC 3.72 Hgb 11.1 Hct 33.6 MCV 90.2 MCH 29.9 MCHC 33.2 RDW 18.1 H Plt Count 387 MPV 7.6 Neutrophils % 79.5 Lymphocytes % 12.1 Monocytes % 5.8 Eosinophils % 1.7 Basophils % 0.9 Sodium 144 Potassium 3.6 Chloride 112 H Carbon Dioxide 23 Anion Gap 9 BUN 10 Creatinine 0.8 Random Glucose 113 H Calcium 7.8 L Phosphorus 1.9 L Magnesium 1.5 L Microbiology 09/11/17 20:40 Blood - Peripheral Venous Blood Culture - Final NO GROWTH AFTER 5 DAYS INCUBATION 09/11/17 20:35 Blood - Peripheral Venous Blood Culture - Final NO GROWTH AFTER 5 DAYS INCUBATION 09/09/17 12:45 Colon Fluid Salmonella/Shigella Culture - Final NO GROWTH OF SALMONELLA OR SHIGELLA SPECIES OBTAINED 09/09/17 12:45 Colon Fluid Campylobacter Culture - Final NO GROWTH OF CAMPYLOBACTER SPECIES OBTAINED 09/09/17 12:45 Colon Fluid Yersinia Culture - Final NO GROWTH OF YERSINIA SPECIES OBTAINED 09/09/17 12:45 Colon Fluid Vibrio Culture - Final NO GROWTH OF VIBRIO SPECIES OBTAINED 09/09/17 12:45 Colon Fluid Escherichia coli 0157 Culture - Final NO GROWTH OF E COLI 0157 OBTAINED 09/09/17 12:45 Stool Clostridium difficile Antigen (DOE) - Final 09/09/17 12:45 Stool Clostridium difficile Toxin Assay - Final ASSESSMENT AND PLAN: 86 year old woman with a history of atrial fib, epilepsy, HTN, diverticulitis who presented to the ED with vomiting and diarrhea, found with acute diverticulitis/Partial SBO, now with resolved SBO with repeat imaging with pericolic abscess -Acute sigmoid diverticulitis with pericolic abscess -Partial SBO, resolved now -Vaginal/?Vulvar bleed -Hypokalemia -Hypophosphatemia -Hypernatremia -Hypomagnesemia -Atrial fibrillation -JAROD, resolved -Stage III CKD -HLD -Chronic diastolic HF, -Pulmonary HTN -HTN PLan: WBC noted, afebrile, asymptomatic, tolerating diet well. Repeat CT results noted, discussed with Dr. Pérez, clinically improved, non significant as discussed. Recommend outpatient follow up imaging but no additional intervention. Continue Zosyn/flagyl per ID. Serial abdominal exams. GI input appreciated. Renal/cardiology input appreciated. Off IVF. Increase lasix to 40 mg BID Replete Mg/Phos/K. MOnitor BP closely, avoid hydration for now given dependent edema and no clinical evidence of dehydration. 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 H/h stable. Hold ACEi for now. Continue lopressor as BP tolerates. Resume Cardizem as BP tolerates. Continue aldactone. DVTPPX on eliquis Dispo planning pending clinical improvement and ID/surgery input. Plan discussed with patient and daughter at bedside in detail, all questions answered.
--- NOTE | 2017-09-19 15:58 | PN ---
Progress Note (short form) - Note Progress Note: S: 86 year old white female with history of coronary artery disease, status post remote postoperative myocardial infarction, status post PCI, permanent atrial fibrillation, hypertension, hypercholesterolemia. H/o of pericolic abscess. Noted to be SOB on movement and icreasing pedal edema. She complained of left elbow pain. Active Medications Apixaban (Eliquis -) 2.5 mg PO BID [facility] Last Admin: 09/19/17 10:51 Dose: 2.5 mg Atorvastatin Calcium (Lipitor -) 10 mg PO HS [facility] Last Admin: 09/18/17 21:03 Dose: 10 mg Benzocaine/Butamben/Tetracaine HCl (Cetacaine [place] -) 1 spray TP DAILY PRN PRN Reason: throat irritation Last Admin: 09/07/17 11:08 Dose: 1 spray Furosemide (Lasix -) 40 mg PO BID@0600,1400 [facility] Last Admin: 09/19/17 15:41 Dose: 40 mg Piperacillin Sod/Tazobactam (Sod 3.375 gm/ Dextrose) 50 mls @ 100 mls/hr IVPB Q8H-IV ANNA PRN Reason: Protocol Last Admin: 09/19/17 10:51 Dose: 100 mls/hr Metronidazole (Flagyl 500mg Premixed Ivpb -) 500 mg in 100 mls @ 100 mls/hr IVPB Q8H-IV [facility] Last Admin: 09/19/17 10:52 Dose: 100 mls/hr Metoprolol Tartrate (Lopressor -) 100 mg PO BID [facility] Last Admin: 09/19/17 10:51 Dose: 100 mg Metoprolol Tartrate (Lopressor Injection -) 5 mg IVPB Q6H PRN PRN Reason: TACHYCARDIA Neomycin/Polymyxin/Bacitracin (Neosporin Topical Ointment -) 1 applic TP BID [facility] Last Admin: 09/19/17 10:53 Dose: 1 applic Nystatin (Nystop Powder -) 1 applic TP DAILY [facility] Last Admin: 09/19/17 10:53 Dose: 1 applic Pantoprazole Sodium (Protonix -) 40 mg PO DAILY [facility] Last Admin: 09/19/17 10:51 Dose: 40 mg Potassium Phos/Sodium Phos (Phos-Nak Packet -) 1 packet PO BID [facility] Stop: 09/20/17 10:01 Last Admin: 09/19/17 10:51 Dose: 1 packet Spironolactone (Aldactone -) 25 mg PO DAILY ANNA Last Admin: 09/19/17 10:51 Dose: 25 mg O: 86 year old female was in mild respiratory distress, no pallor, cyanosis, clubbing, or jaundice. Last Vital Signs Temp Pulse Resp BP Pulse Ox 99.4 F 90 20 132/65 96 09/19/17 14:40 09/19/17 14:40 09/19/17 06:58 09/19/17 14:40 09/18/17 19:47 Intake & Output 09/16/17 09/17/17 09/18/17 09/19/17 23:59 23:59 23:59 23:59 Intake Total 0441 964 5233 850 Output Total 600 Balance 4278 414 9126 250 Weight 197 lb 206 lb 209 lb 205 lb Neck: Supple, no JVD, carotids were equal and upstrokes were normal, no thyromegaly appreciated. Heart: PMI was in the 5th intercostal space, no heaves or thrills, S1 variable, S2 were normal. No murmurs or gallops were appreciated. Lungs: Fine creps. at the right base. Abdomen: Soft, nontender, mildly distended no hepatosplenomegaly appreciated. Extremities: 3+ right pretibial and pedal edema and 2+ LLE and pedal edema, no calf tenderness. Left elbow has a fluctuant swelling, mild tenderness and increased warmth. CBC, BMP 09/19/17 08:09 09/19/17 08:09 IMPRESSION: 1. Recurrence of CHF. 2. Swelling, tenderness and increased warmth involving the left elbow, etiology: a). Acute gouty arthritis. b). Infection/cellulitis needs exclusion. 3. CAD, s/p IA, s/p PCI, stable angina pectoris. 4. Permanent atrial fibrillation. 5. Hypertension. 6. Intestinal obstruction, resolved. 5. Pericolic abscess. 7. Diverticulitis. RECOMMENDATION: 1.She is to receive extra dose of lasix. 2.uric acid level. 3.May need a Xray of the left elbow.
[2017-09-19] MEDS: ATORVASTATIN CA 10 MG TABLET (FP) PO SCH (21:32)
[2017-09-20] MEDS: PIPERACILLIN/TAZOB 3.375 GM 3.375 GM in DEXTROSE 5%-WATER - 50 ML IVPB SCH ×2 (02:22→10:18)
[2017-09-20] MEDS ORDERED: DEXTROSE 5%-WATER - 50 ML IVPB ONE ×2 (03:20→10:12)
[2017-09-20] MEDS ORDERED: PIPERACILLIN/TAZOBACTAM 3.375 GM VIAL IVPB ONE ×2 (03:20→10:12)
[2017-09-20] MEDS: FUROSEMIDE 40 MG TABLET (FP) PO SCH ×2 (06:08→13:03)
[2017-09-20 07:00] LABS: BASO % 0.6 % (0-2.0); HEMATOCRIT 30.8 % (32.4-45.2); HEMOGLOBIN 10.5 GM/dL (10.7-15.3); LYMPH % 14.4 % (8-40); MCH 30.5 pg (25.7-33.7); MEAN CELL VOLUME 89.6 fl (80-96); MEAN PLT VOLUME 7.8 fl (7.5-11.1); MONO % 7.5 % (3.8-10.2); NEUT % 75.5 % (42.8-82.8); PLATELET COUNT 359 K/MM3 (134-434); RBC 3.43 M/mm3 (3.60-5.2); WHITE BLOOD COUNT 10.3 K/mm3 (4.0-10.0)
--- NOTE | 2017-09-20 07:13 | PN ---
Physical Exam: SUBJECTIVE: Patient seen and examined. No new c/o. Left elbow swelling is improving, no more erythematous. OBJECTIVE: Vital Signs Period Temp Pulse Resp BP Sys/Kendall Pulse Ox Last 24 Hr 98.3 F-99.4 F 78-90 20-20 110-132/58-70 96-96 GENERAL: The patient is awake, alert, and fully oriented, in no acute distress. HEAD: Normal with no signs of trauma. EYES: PERRL, extraocular movements intact, sclera anicteric, conjunctiva clear. No ptosis. ENT: Ears normal, nares patent, oropharynx clear without exudates, moist mucous membranes. NECK: Trachea midline, full range of motion, supple. LUNGS: Breath sounds equal, clear to auscultation bilaterally, no wheezes, no crackles, no accessory muscle use. HEART: Regular rate and rhythm, S1, S2 without murmur, rub or gallop. ABDOMEN: Soft, nontender, nondistended, normoactive bowel sounds, no guarding, no rebound, no hepatosplenomegaly, no masses. EXTREMITIES: 2+ pulses, warm, well-perfused, no edema. NEUROLOGICAL: Cranial nerves II through XII grossly intact. Normal speech, gait not observed. PSYCH: Normal mood, normal affect. SKIN: Warm, dry, normal turgor, no rashes or lesions noted Laboratory Results - last 24 hr 09/19/17 09/19/17 08:09 08:09 WBC 11.3 H RBC 3.72 Hgb 11.1 Hct 33.6 MCV 90.2 MCH 29.9 MCHC 33.2 RDW 18.1 H Plt Count 387 MPV 7.6 Neutrophils % 79.5 Lymphocytes % 12.1 Monocytes % 5.8 Eosinophils % 1.7 Basophils % 0.9 Sodium 144 Potassium 3.6 Chloride 112 H Carbon Dioxide 23 Anion Gap 9 BUN 10 Creatinine 0.8 Random Glucose 113 H Calcium 7.8 L Phosphorus 1.9 L Magnesium 1.5 L Active Medications Generic Name Dose Route Start Last Admin Trade Name Freq PRN Reason Stop Dose Admin Apixaban 2.5 mg 09/10/17 10:21 09/19/17 21:32 Eliquis - PO 2.5 mg BID ANNA Administration Atorvastatin Calcium 10 mg 09/07/17 22:00 09/19/17 21:32 Lipitor - PO 10 mg HS ANNA Administration Benzocaine/Butamben/Tetracaine HCl 1 spray 09/07/17 10:15 09/07/17 11:08 Cetacaine [place] - TP 1 spray DAILY PRN Administration throat irritation Furosemide 40 mg 09/19/17 14:15 09/20/17 06:08 Lasix - PO 40 mg BID@0600,1400 ANNA Administration Piperacillin Sod/Tazobactam 50 mls @ 100 mls/hr 09/11/17 21:30 09/20/17 02:22 Sod 3.375 gm/ Dextrose IVPB 100 mls/hr Q8H-IV ANNA Administration Protocol Metronidazole 500 mg in 100 mls @ 100 mls/hr 09/14/17 18:00 09/20/17 02:14 Flagyl 500mg Premixed Ivpb - IVPB 100 mls/hr Q8H-IV ANNA Administration Metoprolol Tartrate 100 mg 09/09/17 22:00 09/19/17 21:32 Lopressor - PO 100 mg BID ANNA Administration Metoprolol Tartrate 5 mg 09/09/17 15:40 Lopressor Injection - IVPB Q6H PRN TACHYCARDIA Neomycin/Polymyxin/Bacitracin 1 applic 09/13/17 22:00 09/19/17 21:33 Neosporin Topical Ointment - TP 1 applic BID ANNA Administration Nystatin 1 applic 09/07/17 10:00 09/19/17 10:53 Nystop Powder - TP 1 applic DAILY ANNA Administration Pantoprazole Sodium 40 mg 09/10/17 10:00 09/19/17 10:51 Protonix - PO 40 mg DAILY ANNA Administration Potassium Phos/Sodium Phos 1 packet 09/17/17 22:00 09/19/17 21:32 Phos-Nak Packet - PO 09/20/17 10:01 1 packet BID ANNA Administration Spironolactone 25 mg 09/10/17 10:00 09/19/17 10:51 Aldactone - PO 25 mg DAILY ANNA Administration ASSESSMENT/PLAN:
[2017-09-20 07:35] LABS: ALBUMIN 1.8 g/dl (3.4-5.0); ANION GAP 6 (8-16); BLOOD UREA NITROGEN 9 mg/dL (7-18); CALCIUM 7.5 mg/dL (8.5-10.1); CHLORIDE 110 mmol/L (98-107); CO2 27 mmol/L (21-32); GLUCOSE,RANDOM 94 mg/dL (74-106); MAGNESIUM 1.6 mg/dL (1.8-2.4); POTASSIUM 3.3 mmol/L (3.5-5.1); SODIUM 143 mmol/L (136-145)
[2017-09-20 07:39] LABS: ALK PHOS 80 U/L (45-117); BILIRUBIN,TOTAL 0.6 mg/dL (0.2-1.0); CREATININE 0.9 mg/dL (0.55-1.02); SGOT/AST 8 U/L (15-37); SGPT/ALT 6 U/L (12-78); TOT PROT 4.9 g/dl (6.4-8.2); URIC ACID 6.8 mg/dL (2.6-7.2)
[2017-09-20] MEDS ORDERED: MAGNESIUM 2GM/50ML STERILE WATER IVPB IVPB ONE (08:50)
[2017-09-20] MEDS ORDERED: POTASSIUM PHOSPHATE 30 MM in DEXTROSE 5%-WATER - 500 ML IVPB ONE (08:51)
[2017-09-20] MEDS ORDERED: MAGNESIUM SULF 50% (8.12 MEQ/2 ML-1 GM VIAL) IVPB ONE (08:51)
[2017-09-20] MEDS ORDERED: POTASSIUM PHOSPHATE 30 MM in DEXTROSE 5%-WATER - 250 ML IVPB ONE (08:52)
[2017-09-20] MEDS ORDERED: NAPH,MB-DB/K PH,MBDB POWDER PACKET PO ONE (08:54)
[2017-09-20 09:08] VITALS: BP 127/68
[2017-09-20] MEDS ORDERED: POTASSIUM CHLORIDE TABS 20 MEQ TABLET.ER (FP) PO SCH (10:00)
[2017-09-20] MEDS ORDERED: PT OWN MED DRAWER 7, Y5N ONE (10:11)
[2017-09-20] MEDS: SPIRONOLACTONE 25 MG TABLET (FP) PO SCH (10:18)
[2017-09-20] MEDS: PANTOPRAZOLE 40 MG TABLET (FP) PO SCH (10:18)
[2017-09-20] MEDS: APIXABAN 2.5 MG TABLET PO SCH (10:19)
[2017-09-20] MEDS: METOPROLOL TARTRATE 50 MG TABLET (FP) PO SCH (10:19)
--- NOTE | 2017-09-20 10:20 | PN ---
Progress Note (short form) - Note Progress Note: S: 86 year old white female with history of coronary artery disease, status post remote postoperative myocardial infarction, status post PCI, permanent atrial fibrillation, hypertension, hypercholesterolemia. H/o of pericolic abscess. No SOB reported, pedal edema has subsided. Active Medications Generic Name Dose Route Start Last Admin Trade Name Freq PRN Reason Stop Dose Admin Apixaban 2.5 mg 09/10/17 10:21 09/20/17 10:19 Eliquis - PO 2.5 mg BID ANNA Administration Atorvastatin Calcium 10 mg 09/07/17 22:00 09/19/17 21:32 Lipitor - PO 10 mg HS ANNA Administration Benzocaine/Butamben/Tetracaine HCl 1 spray 09/07/17 10:15 09/07/17 11:08 Cetacaine [place] - TP 1 spray DAILY PRN Administration throat irritation Furosemide 40 mg 09/19/17 14:15 09/20/17 06:08 Lasix - PO 40 mg BID@0600,1400 ANNA Administration Piperacillin Sod/Tazobactam 50 mls @ 100 mls/hr 09/11/17 21:30 09/20/17 10:18 Sod 3.375 gm/ Dextrose IVPB 100 mls/hr Q8H-IV ANNA Administration Protocol Metronidazole 500 mg in 100 mls @ 100 mls/hr 09/14/17 18:00 09/20/17 02:14 Flagyl 500mg Premixed Ivpb - IVPB 100 mls/hr Q8H-IV ANNA Administration Potassium Phosphate 30 mm/ 510 mls @ 62.5 mls/hr 09/20/17 08:51 Dextrose IVPB 09/20/17 17:00 ONCE ONE Potassium Phosphate 30 mm/ 260 mls @ 62.5 mls/hr 09/20/17 08:52 Dextrose IVPB 09/20/17 13:01 ONCE ONE Magnesium Sulfate 2 gm 09/20/17 08:51 Magnesium Sulfate IVPB 09/20/17 08:52 ONCE ONE Metoprolol Tartrate 100 mg 09/09/17 22:00 09/20/17 10:19 Lopressor - PO 100 mg BID ANNA Administration Metoprolol Tartrate 5 mg 09/09/17 15:40 Lopressor Injection - IVPB Q6H PRN TACHYCARDIA Neomycin/Polymyxin/Bacitracin 1 applic 09/13/17 22:00 09/19/17 21:33 Neosporin Topical Ointment - TP 1 applic BID ANNA Administration Nystatin 1 applic 09/07/17 10:00 09/19/17 10:53 Nystop Powder - TP 1 applic DAILY ANNA Administration Pantoprazole Sodium 40 mg 09/10/17 10:00 09/20/17 10:18 Protonix - PO 40 mg DAILY ANNA Administration Potassium Chloride 20 meq 09/20/17 10:00 09/20/17 10:18 K-Dur - PO 20 meq BID ANNA Administration Spironolactone 25 mg 09/10/17 10:00 09/20/17 10:18 Aldactone - PO 25 mg DAILY ANNA Administration g O: 86 year old female was in mild respiratory distress, no pallor, cyanosis, clubbing, or jaundice. Last Vital Signs Temp Pulse Resp BP Pulse Ox 98.7 F 81 20 127/68 96 09/20/17 09:07 09/20/17 09:07 09/20/17 09:07 09/20/17 09:07 09/19/17 21:00 I Intake & Output 09/17/17 09/18/17 09/19/17 09/20/17 23:59 23:59 23:59 23:59 Intake Total 425 1400 1403 400 Output Total 600 Balance 425 1400 803 400 Weight 206 lb 209 lb 205 lb 205 lb 8 oz Neck: Supple, no JVD, carotids were equal and upstrokes were normal, no thyromegaly appreciated. Heart: PMI was in the 5th intercostal space, no heaves or thrills, S1 variable, S2 were normal. No murmurs or gallops were appreciated. Lungs: Fine creps. at the right base. Abdomen: Soft, nontender, mildly distended no hepatosplenomegaly appreciated. Extremities: 3+ right pretibial and pedal edema and 2+ LLE and pedal edema, no calf tenderness. left elbow is less tender, swelling appears the same, less hyperemia CBC, BMP 09/20/17 06:15 09/20/17 06:15 IMPRESSION: 1. CHF improving. 2. Swelling, tenderness and increased warmth involving the left elbow, etiology: a). Acute gouty arthritis. b). Infection/cellulitis needs exclusion. 3. CAD, s/p MS, s/p PCI, stable angina pectoris. 4. Permanent atrial fibrillation. 5. Hypertension. 6. Intestinal obstruction, resolved. 5. Pericolic abscess. 7. Diverticulitis. 8. Hypokalemia 9. Correction of Mg. RECOMMENDATION: 1.Correction of hypokalemia. 2.uric acid level. 3.May need a Xray of the left elbow.
[2017-09-20] MEDS: NAPH,MB-DB/K PH,MBDB POWDER PACKET PO SCH (10:55)
[2017-09-20] MEDS: NEOMYCIN/POLYMYXIN/BACITRACIN (TRIPLE ANTIBIOTIC) 28 GM OINTMENT TP SCH (10:55)
[2017-09-20] MEDS: NYSTATIN POWDER 100,000 UNITS/GM - 15 GM TOPICAL POWDER TP SCH (10:56)
--- NOTE | 2017-09-20 13:21 | PN ---
Progress Note, Physician History of Present Illness: No acute events overnight. Clinically the same. Comfortable. Pain- free. - Current Medication List Current Medications: Active Medications Apixaban (Eliquis -) 2.5 mg PO BID [facility] Last Admin: 09/20/17 10:19 Dose: 2.5 mg Atorvastatin Calcium (Lipitor -) 10 mg PO HS [facility] Last Admin: 09/19/17 21:32 Dose: 10 mg Benzocaine/Butamben/Tetracaine HCl (Cetacaine [place] -) 1 spray TP DAILY PRN PRN Reason: throat irritation Last Admin: 09/07/17 11:08 Dose: 1 spray Furosemide (Lasix -) 40 mg PO BID@0600,1400 [facility] Last Admin: 09/20/17 13:03 Dose: 40 mg Piperacillin Sod/Tazobactam (Sod 3.375 gm/ Dextrose) 50 mls @ 100 mls/hr IVPB Q8H-IV ANNA PRN Reason: Protocol Last Admin: 09/20/17 10:18 Dose: 100 mls/hr Metronidazole (Flagyl 500mg Premixed Ivpb -) 500 mg in 100 mls @ 100 mls/hr IVPB Q8H-IV ANNA Last Admin: 09/20/17 10:55 Dose: 100 mls/hr Potassium Phosphate 30 mm/ (Dextrose) 510 mls @ 62.5 mls/hr IVPB ONCE ONE Stop: 09/20/17 17:00 Last Admin: 09/20/17 13:03 Dose: 62.5 mls/hr Metoprolol Tartrate (Lopressor -) 100 mg PO BID [facility] Last Admin: 09/20/17 10:19 Dose: 100 mg Metoprolol Tartrate (Lopressor Injection -) 5 mg IVPB Q6H PRN PRN Reason: TACHYCARDIA Neomycin/Polymyxin/Bacitracin (Neosporin Topical Ointment -) 1 applic TP BID [facility] Last Admin: 09/20/17 10:55 Dose: 1 applic Nystatin (Nystop Powder -) 1 applic TP DAILY [facility] Last Admin: 09/20/17 10:56 Dose: 1 applic Pantoprazole Sodium (Protonix -) 40 mg PO DAILY [facility] Last Admin: 09/20/17 10:18 Dose: 40 mg Potassium Chloride (K-Dur -) 20 meq PO BID [facility] Last Admin: 09/20/17 10:18 Dose: 20 meq Spironolactone (Aldactone -) 25 mg PO DAILY [facility] Last Admin: 09/20/17 10:18 Dose: 25 mg - Objective Vital Signs: Vital Signs Temperature 98.7 F 09/20/17 09:07 Pulse Rate 81 09/20/17 09:07 Respiratory Rate 20 09/20/17 09:07 Blood Pressure 127/68 09/20/17 09:07 O2 Sat by Pulse Oximetry (%) 95 09/20/17 09:00 Constitutional: Yes: Well Nourished, No Distress, Calm Gastrointestinal: Yes: Normal Bowel Sounds, Soft. No: Melena, Tenderness, Vomiting Labs: CBC, BMP 09/20/17 06:15 09/20/17 06:15 INR, PTT INR 1.55 (0.82-1.09) H 09/15/17 08:42 Problem List - Problems (1) Partial obstruction of small intestine Code(s): K56.600 - PARTIAL INTESTINAL OBSTRUCTION, UNSPECIFIED TO CAUSE (2) Diverticulitis Code(s): K57.92 - DVTRCLI OF INTEST, PART UNSP, W/O PERF OR ABSCESS W/O BLEED (3) Diverticulitis large intestine Code(s): K57.32 - DVTRCLI OF LG INT W/O PERFORATION OR ABSCESS W/O BLEEDING Assessment/Plan Continue current care. Complete course of Abx as per ID.
--- NOTE | 2017-09-20 13:43 | PN ---
Teaching Attending Note Name of Resident: Lou Suresh ATTENDING PHYSICIAN STATEMENT I saw and evaluated the patient. I reviewed the resident's note and discussed the case with the resident. I agree with the resident's findings and plan as documented with exceptions below. SUBJECTIVE: Patient seen and examined. No nausea, vomiting, abdominal pain, fevers or chills. Dyspnea with activity improved. left elbow swelling but no pain or redness noted. OBJECTIVE: Vital Signs Period Temp Pulse Resp BP Sys/Kendall Pulse Ox Last 24 Hr 98.3 F-99.4 F 78-90 20-20 110-132/58-70 95-96 Intake & Output 09/17/17 09/18/17 09/19/17 09/20/17 23:59 23:59 23:59 23:59 Intake Total 425 1400 1403 400 Output Total 600 Balance 425 1400 803 400 Weight 206 lb 209 lb 205 lb 205 lb 8 oz General: sitting in chair in no acute distress Chest: decreased breath sounds at bases Abdomen:soft, obese, NT throughout Extremities: 2+ pedal edema, improved, smooth non warm, non tender swelling below left elbow with full ROM at elbow with no pain or limitation, no overlying erythema noted Home Medication List Medication Instructions Recorded Confirmed Type Aspirin 81 mg PO DAILY 09/06/17 09/06/17 History Diltiazem Cd [Cardizem Cd -] 180 mg PO DAILY 09/06/17 09/06/17 History Furosemide [Lasix -] 40 mg PO HS 09/06/17 09/06/17 History Furosemide [Lasix -] 80 mg PO AM 09/06/17 09/06/17 History Metoprolol Succinate [Toprol Xl -] 100 mg PO BID 09/06/17 09/06/17 History Potassium Chloride [K-Dur -] 20 meq PO DAILY 09/06/17 09/06/17 History Pravastatin Sodium [Pravachol] 40 mg PO DAILY 09/06/17 09/06/17 History Spironolactone [Aldactone] 25 mg PO DAILY 09/06/17 09/06/17 History Apixaban [Eliquis] 5 mg PO BID 09/07/17 09/07/17 History Active Medications Generic Name Dose Route Start Last Admin Trade Name Freq PRN Reason Stop Dose Admin Apixaban 2.5 mg 09/10/17 10:21 09/20/17 10:19 Eliquis - PO 2.5 mg BID ANNA Administration Atorvastatin Calcium 10 mg 09/07/17 22:00 09/19/17 21:32 Lipitor - PO 10 mg HS ANNA Administration Benzocaine/Butamben/Tetracaine HCl 1 spray 09/07/17 10:15 09/07/17 11:08 Cetacaine [place] - TP 1 spray DAILY PRN Administration throat irritation Furosemide 40 mg 09/19/17 14:15 09/20/17 13:03 Lasix - PO 40 mg BID@0600,1400 ANNA Administration Piperacillin Sod/Tazobactam 50 mls @ 100 mls/hr 09/11/17 21:30 09/20/17 10:18 Sod 3.375 gm/ Dextrose IVPB 100 mls/hr Q8H-IV ANNA Administration Protocol Metronidazole 500 mg in 100 mls @ 100 mls/hr 09/14/17 18:00 09/20/17 10:55 Flagyl 500mg Premixed Ivpb - IVPB 100 mls/hr Q8H-IV ANNA Administration Potassium Phosphate 30 mm/ 510 mls @ 62.5 mls/hr 09/20/17 08:51 09/20/17 13: 03 Dextrose IVPB 09/20/17 17:00 62.5 mls/hr ONCE ONE Administration Metoprolol Tartrate 100 mg 09/09/17 22:00 09/20/17 10:19 Lopressor - PO 100 mg BID ANNA Administration Metoprolol Tartrate 5 mg 09/09/17 15:40 Lopressor Injection - IVPB Q6H PRN TACHYCARDIA Neomycin/Polymyxin/Bacitracin 1 applic 09/13/17 22:00 09/20/17 10:55 Neosporin Topical Ointment - TP 1 applic BID ANNA Administration Nystatin 1 applic 09/07/17 10:00 09/20/17 10:56 Nystop Powder - TP 1 applic DAILY ANNA Administration Pantoprazole Sodium 40 mg 09/10/17 10:00 09/20/17 10:18 Protonix - PO 40 mg DAILY ANNA Administration Potassium Chloride 20 meq 09/20/17 10:00 09/20/17 10:18 K-Dur - PO 20 meq BID ANNA Administration Spironolactone 25 mg 09/10/17 10:00 09/20/17 10:18 Aldactone - PO 25 mg DAILY ANNA Administration Laboratory Results - last 24 hr 09/20/17 09/20/17 06:15 06:15 WBC 10.3 H RBC 3.43 L Hgb 10.5 L Hct 30.8 L MCV 89.6 MCH 30.5 MCHC 34.0 RDW 18.0 H Plt Count 359 MPV 7.8 Neutrophils % 75.5 Lymphocytes % 14.4 Monocytes % 7.5 Eosinophils % 2.0 Basophils % 0.6 Sodium 143 Potassium 3.3 L Chloride 110 H Carbon Dioxide 27 Anion Gap 6 L BUN 9 Creatinine 0.9 Creat Clearance w eGFR 59.51 Random Glucose 94 Uric Acid 6.8 Calcium 7.5 L Phosphorus 2.0 L Magnesium 1.6 L Total Bilirubin 0.6 AST 8 L ALT 6 L Alkaline Phosphatase 80 Total Protein 4.9 L Albumin 1.8 L Microbiology 09/11/17 20:40 Blood - Peripheral Venous Blood Culture - Final NO GROWTH AFTER 5 DAYS INCUBATION 09/11/17 20:35 Blood - Peripheral Venous Blood Culture - Final NO GROWTH AFTER 5 DAYS INCUBATION 09/09/17 12:45 Colon Fluid Salmonella/Shigella Culture - Final NO GROWTH OF SALMONELLA OR SHIGELLA SPECIES OBTAINED 09/09/17 12:45 Colon Fluid Campylobacter Culture - Final NO GROWTH OF CAMPYLOBACTER SPECIES OBTAINED 09/09/17 12:45 Colon Fluid Yersinia Culture - Final NO GROWTH OF YERSINIA SPECIES OBTAINED 09/09/17 12:45 Colon Fluid Vibrio Culture - Final NO GROWTH OF VIBRIO SPECIES OBTAINED 09/09/17 12:45 Colon Fluid Escherichia coli 0157 Culture - Final NO GROWTH OF E COLI 0157 OBTAINED 09/09/17 12:45 Stool Clostridium difficile Antigen (DOE) - Final 09/09/17 12:45 Stool Clostridium difficile Toxin Assay - Final ASSESSMENT AND PLAN: 86 year old woman with a history of atrial fib, epilepsy, HTN, diverticulitis who presented to the ED with vomiting and diarrhea, found with acute diverticulitis/Partial SBO, now with resolved SBO with repeat imaging with pericolic abscess -Acute sigmoid diverticulitis with pericolic abscess -Partial SBO, resolved now -Vaginal/?Vulvar bleed -Hypokalemia -Hypophosphatemia -Hypernatremia -Hypomagnesemia -Atrial fibrillation -JAROD, resolved -Stage III CKD -HLD -Chronic diastolic HF, -Pulmonary HTN -HTN -Left elbow swelling, likely olecranon effusion PLan: WBC noted, afebrile, asymptomatic, tolerating diet well. Repeat CT results noted, discussed with Dr. Pérez, clinically improved, non significant as discussed. Recommend outpatient follow up imaging but no additional intervention. Zosyn/flagyl. Discuss with ID for abx taper. Serial abdominal exams. GI input appreciated. Renal/cardiology input appreciated. Off IVF. Increase lasix to 40 mg BID, transition to home regimen and resume cardizem on d.c. Replete Mg/Phos/K prn. left elbow likely reactive olecranon bursa effusion, no evidence of infection, full ROM intact. Outpatient follow up. dynamometer tester input noted. H/h stable. Continue lopressor as BP tolerates. Resume Cardizem as BP tolerates. Continue aldactone. DVTPPX on eliquis Dispohome with services today if ok from ID/surgery standpoint. Plan discussed with patient and daughter at bedside in detail, all questions answered.
[2017-09-20 14:45] VITALS: PULSE 80; TEMP 98
--- NOTE | 2017-09-20 15:40 | PN ---
Progress Note, Physician History of Present Illness: Pt seen and examined at bedside. She is awake and alert. She denies shortness of breath. She is eager to go home. - Current Medication List Current Medications: Active Medications Apixaban (Eliquis -) 2.5 mg PO BID [facility] Last Admin: 09/20/17 10:19 Dose: 2.5 mg Atorvastatin Calcium (Lipitor -) 10 mg PO HS [facility] Last Admin: 09/19/17 21:32 Dose: 10 mg Benzocaine/Butamben/Tetracaine HCl (Cetacaine Advance -) 1 spray TP DAILY PRN PRN Reason: throat irritation Last Admin: 09/07/17 11:08 Dose: 1 spray Furosemide (Lasix -) 40 mg PO BID@0600,1400 [facility] Last Admin: 09/20/17 13:03 Dose: 40 mg Piperacillin Sod/Tazobactam (Sod 3.375 gm/ Dextrose) 50 mls @ 100 mls/hr IVPB Q8H-IV ANNA PRN Reason: Protocol Last Admin: 09/20/17 10:18 Dose: 100 mls/hr Metronidazole (Flagyl 500mg Premixed Ivpb -) 500 mg in 100 mls @ 100 mls/hr IVPB Q8H-IV [facility] Last Admin: 09/20/17 10:55 Dose: 100 mls/hr Metoprolol Tartrate (Lopressor -) 100 mg PO BID [facility] Last Admin: 09/20/17 10:19 Dose: 100 mg Metoprolol Tartrate (Lopressor Injection -) 5 mg IVPB Q6H PRN PRN Reason: TACHYCARDIA Neomycin/Polymyxin/Bacitracin (Neosporin Topical Ointment -) 1 applic TP BID [facility] Last Admin: 09/20/17 10:55 Dose: 1 applic Nystatin (Nystop Powder -) 1 applic TP DAILY [facility] Last Admin: 09/20/17 10:56 Dose: 1 applic Pantoprazole Sodium (Protonix -) 40 mg PO DAILY [facility] Last Admin: 09/20/17 10:18 Dose: 40 mg Potassium Chloride (K-Dur -) 20 meq PO BID [facility] Last Admin: 09/20/17 10:18 Dose: 20 meq Spironolactone (Aldactone -) 25 mg PO DAILY [facility] Last Admin: 09/20/17 10:18 Dose: 25 mg - Objective Vital Signs: Vital Signs Temperature 98.0 F 09/20/17 14:00 Pulse Rate 80 09/20/17 14:00 Respiratory Rate 24 09/20/17 14:00 Blood Pressure 127/68 09/20/17 09:07 O2 Sat by Pulse Oximetry (%) 95 09/20/17 09:00 Constitutional: Yes: Calm Eyes: Yes: Conjunctiva Clear HENT: Yes: Atraumatic Neck: Yes: Supple Cardiovascular: Yes: S1, S2 Respiratory: Yes: CTA Bilaterally Gastrointestinal: Yes: Soft, Abdomen, Obese Musculoskeletal: Yes: WNL Edema: Yes Edema: LLE: 1+, RLE: 1+ Neurological: Yes: Oriented Psychiatric: Yes: Oriented Labs: CBC, BMP 09/20/17 06:15 09/20/17 06:15 INR, PTT INR 1.55 (0.82-1.09) H 09/15/17 08:42 Problem List - Problems (1) JAROD (acute kidney injury) Code(s): N17.9 - ACUTE KIDNEY FAILURE, UNSPECIFIED (2) Diverticulitis Code(s): K57.92 - DVTRCLI OF INTEST, PART UNSP, W/O PERF OR ABSCESS W/O BLEED (3) Partial obstruction of small intestine Code(s): K56.600 - PARTIAL INTESTINAL OBSTRUCTION, UNSPECIFIED TO CAUSE Assessment/Plan Current Medications Generic Name Dose Route Start Last Admin Trade Name Freq PRN Reason Stop Dose Admin Apixaban 2.5 mg 09/10/17 10:21 09/20/17 10:19 Eliquis - PO 2.5 mg BID ANNA Administration Atorvastatin Calcium 10 mg 09/07/17 22:00 09/19/17 21:32 Lipitor - PO 10 mg HS ANNA Administration Benzocaine/Butamben/Tetracaine HCl 1 spray 09/07/17 10:15 09/07/17 11:08 Cetacaine Advance - TP 1 spray DAILY PRN Administration throat irritation Furosemide 40 mg 09/19/17 14:15 09/20/17 13:03 Lasix - PO 40 mg BID@0600,1400 ANNA Administration Piperacillin Sod/Tazobactam 50 mls @ 100 mls/hr 09/11/17 21:30 09/20/17 10:18 Sod 3.375 gm/ Dextrose IVPB 100 mls/hr Q8H-IV ANNA Administration Protocol Metronidazole 500 mg in 100 mls @ 100 mls/hr 09/14/17 18:00 09/20/17 10:55 Flagyl 500mg Premixed Ivpb - IVPB 100 mls/hr Q8H-IV ANNA Administration Metoprolol Tartrate 100 mg 09/09/17 22:00 09/20/17 10:19 Lopressor - PO 100 mg BID ANNA Administration Metoprolol Tartrate 5 mg 09/09/17 15:40 Lopressor Injection - IVPB Q6H PRN TACHYCARDIA Neomycin/Polymyxin/Bacitracin 1 applic 09/13/17 22:00 09/20/17 10:55 Neosporin Topical Ointment - TP 1 applic BID ANNA Administration Nystatin 1 applic 09/07/17 10:00 09/20/17 10:56 Nystop Powder - TP 1 applic DAILY ANNA Administration Pantoprazole Sodium 40 mg 09/10/17 10:00 09/20/17 10:18 Protonix - PO 40 mg DAILY ANNA Administration Potassium Chloride 20 meq 09/20/17 10:00 09/20/17 10:18 K-Dur - PO 20 meq BID ANNA Administration Spironolactone 25 mg 09/10/17 10:00 09/20/17 10:18 Aldactone - PO 25 mg DAILY ANNA Administration Impression 1. JAROD 2. a-fib 3. CHF 4. pulm HTN 5. CAD 6. partial sbo 7. dilated right renal pelvis Plan - resume home dose of diuretics - lasix 80 mg in am and 40 mg in afternoon - cont spironolactone - discussed plan with pt and her daughter - should see urology as outpt - will follow Dr Rodriguez
--- NOTE | 2017-09-20 16:07 | PN ---
Progress Note, Physician Chief Complaint: OOB in chair No c/o abdiominal pain Tolerating diet No c/o vomiting/ diarrhea No fever/ chills History of Present Illness: Awake, alert OOB in chair No c/o abdominal pain. No N/V Tolerating diet Reports formed stools No c/o fever/ chills No c/o dysuria WBC improved now 10.9K Repeat BC no growth Repeat CT shows new collection - Current Medication List Current Medications: Active Medications Apixaban (Eliquis -) 2.5 mg PO BID [facility] Last Admin: 09/20/17 10:19 Dose: 2.5 mg Atorvastatin Calcium (Lipitor -) 10 mg PO HS [facility] Last Admin: 09/19/17 21:32 Dose: 10 mg Benzocaine/Butamben/Tetracaine HCl (Cetacaine [place] -) 1 spray TP DAILY PRN PRN Reason: throat irritation Last Admin: 09/07/17 11:08 Dose: 1 spray Furosemide (Lasix -) 40 mg PO BID@0600,1400 [facility] Last Admin: 09/20/17 13:03 Dose: 40 mg Piperacillin Sod/Tazobactam (Sod 3.375 gm/ Dextrose) 50 mls @ 100 mls/hr IVPB Q8H-IV ANNA PRN Reason: Protocol Last Admin: 09/20/17 10:18 Dose: 100 mls/hr Metronidazole (Flagyl 500mg Premixed Ivpb -) 500 mg in 100 mls @ 100 mls/hr IVPB Q8H-IV [facility] Last Admin: 09/20/17 10:55 Dose: 100 mls/hr Metoprolol Tartrate (Lopressor -) 100 mg PO BID [facility] Last Admin: 09/20/17 10:19 Dose: 100 mg Metoprolol Tartrate (Lopressor Injection -) 5 mg IVPB Q6H PRN PRN Reason: TACHYCARDIA Neomycin/Polymyxin/Bacitracin (Neosporin Topical Ointment -) 1 applic TP BID [facility] Last Admin: 09/20/17 10:55 Dose: 1 applic Nystatin (Nystop Powder -) 1 applic TP DAILY [facility] Last Admin: 09/20/17 10:56 Dose: 1 applic Pantoprazole Sodium (Protonix -) 40 mg PO DAILY [facility] Last Admin: 09/20/17 10:18 Dose: 40 mg Potassium Chloride (K-Dur -) 20 meq PO BID [facility] Last Admin: 09/20/17 10:18 Dose: 20 meq Spironolactone (Aldactone -) 25 mg PO DAILY [facility] Last Admin: 09/20/17 10:18 Dose: 25 mg - Objective Vital Signs: Vital Signs Temperature 98.0 F 09/20/17 14:00 Pulse Rate 80 09/20/17 14:00 Respiratory Rate 24 09/20/17 14:00 Blood Pressure 127/68 09/20/17 09:07 O2 Sat by Pulse Oximetry (%) 95 09/20/17 09:00 Constitutional: Yes: No Distress Cardiovascular: Yes: Regular Rate and Rhythm, S1, S2 Respiratory: Yes: CTA Bilaterally Gastrointestinal: Yes: Normal Bowel Sounds, Soft, Abdomen, Obese. No: Tenderness Extremities: Yes: Other (+ fluctant swelling over L olecrannon bursa. No tenderness/ erythema/ warmth) Labs: CBC, BMP 09/20/17 06:15 09/20/17 06:15 INR, PTT INR 1.55 (0.82-1.09) H 09/15/17 08:42 Assessment/Plan Leukocytosis- improving Diverticulitis/ diverticular abscess Discontinue IV antibiotic therapy , day #14 Substitute augmentin 875mg po bid x7d Outpatient GI followup Discussed with daughter at bedside
--- NOTE | 2017-09-20 17:40 | DS ---
Physical Exam: SUBJECTIVE: Patient seen and examined. No new c/o. Left elbow swelling is improving, no longer red. OBJECTIVE: Vital Signs Period Temp Pulse Resp BP Sys/Kendall Pulse Ox Last 24 Hr 98.0 F-98.8 F 78-81 20-24 110-132/58-70 95-96 Vital Signs Temp 98.0 F 09/20/17 14:00 Pulse 80 09/20/17 14:00 Resp 24 09/20/17 14:00 BP 127/68 09/20/17 09:07 Pulse Ox 95 09/20/17 09:00 Intake & Output 09/19/17 09/20/17 09/20/17 23:59 11:59 23:59 Intake Total 903 400 750 Balance 903 400 750 Weight 93.213 kg Intake: IVPB 350 200 350 Oral 553 200 400 Other: Voiding Method Toilet Toilet Bedpan # Unmeasured Voids Void 2 2 1 Bowel Movement Yes No Yes # Bowel Movements 1 1 Weight Measurement Method Built in Bedscale PHYSICAL EXAM GENERAL: The patient is awake, alert, and fully oriented, in no acute distress. ENT: moist mucous membranes. NECK: supple. LUNGS: Breath sounds equal, few basal creps bilaterally HEART: Regular rate and rhythm, S1, S2 without murmur ABDOMEN: Soft, nontender, nondistended, normoactive bowel sounds, no guarding EXTREMITIES: 2+ pulses, warm, well-perfused, bilateral pedal edema. NEUROLOGICAL: Normal speech, gait not observed. SKIN: Warm, dry, normal turgor, no rashes or lesions noted. L elbow-soft mildly swollen elbow, non erythematous, nontender LABS Laboratory Results - last 24 hr 09/20/17 09/20/17 06:15 06:15 WBC 10.3 H RBC 3.43 L Hgb 10.5 L Hct 30.8 L MCV 89.6 MCH 30.5 MCHC 34.0 RDW 18.0 H Plt Count 359 MPV 7.8 Neutrophils % 75.5 Lymphocytes % 14.4 Monocytes % 7.5 Eosinophils % 2.0 Basophils % 0.6 Sodium 143 Potassium 3.3 L Chloride 110 H Carbon Dioxide 27 Anion Gap 6 L BUN 9 Creatinine 0.9 Creat Clearance w eGFR 59.51 Random Glucose 94 Uric Acid 6.8 Calcium 7.5 L Phosphorus 2.0 L Magnesium 1.6 L Total Bilirubin 0.6 AST 8 L ALT 6 L Alkaline Phosphatase 80 Total Protein 4.[address] abd/pelvis 09/06: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 Cholelithiasis. Moderate distended R renal pelvis at UPJ junction. Partial SBO, inflammatory changes about proximal sigmoid colon consistent with mild acute diverticulitis. Fibroid uterus. Repeat CT abd/pelvis done with oral contrast 09/16/17-Slight improvement in diverticulitis and pericolic abscess of 09/13, new fluid collection noted anteriorly within the lower pelvis extending from the uterine fundus. HOSPITAL COURSE: Date of Admission:09/07/17 Date of Discharge: 09/20/17 Pre-hospital course: Pt is an 86 yo F with a PMHx of atrial fib, epilepsy, HTN, diverticulitis who presented with vomiting and diarrhea, diagnosed with partial SBO (abd Xray) then found to have diverticulitis. In hospital course: SBO/diverticulitis: Patient was decompressed with NGT with resolution of SBO. The diverticulitis was then initially treated with Levaquin/flagyl for WBC trending upwards. She was started on Zosyn on 09/11 (10 days) in combination with flagyl (14 days), leading to downward trending WBC (peaked at 15.1>>10.3-at discharge). She transitioned from NPO to clears, full clear diet and was discharged on soft diet that she tolerated well, passing stool daily. Patient was discharged on Augmentin 875mg bid x7 days. Pt is being discharged to follow up with Dr Pérez (surgeon) for re-imaging. Acute kidney injury on stage 3 CKD: Renal function was noted with elevated creatinine that trended down to 0.9. She is to follow up with Dr Rodriguez as an outpatient. 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 No hydronephrosis-For outpatient follow up Left adrenal mass fat containing myelolipoma [id number] on Ct scan Cholelithiasis multiple on CT of abdomen. For outpatient urology follow up L elbow bursitis: Seen on Xray. Monitor Afib: Permanent atrial fibrillation. On home Lopressor, Eliquis and Cardizem. Hyperlipidemia On statin Chronic diastolic heart failure/pulmonary HTN: Continue Lasix and Aldactone HTN : Cont Lopressor, and Lisinopril (held in hospital, to resume as outpatient) Vaginal Bleeding: Stock Unloader consulted- pt and family declined further evaluation For outpatient follow up as they choose Minutes to complete discharge: 50 Discharge Summary Reason For Visit: DIVERTICULITIS, SMALL BOWEL OBSTRUCTION Condition: Improved - Instructions Diet, Activity, Other Instructions: You came in for a partial bowel obstruction and you were treated for diverticulitis We are discharging you on oral antibiotics- Augmentin 875mg twice a day by mouth for 7 days You noticed swelling of your left elbow- there is no evidence of gout or fracture, but there is some fluid collection at the joint that should resolve over time Follow up with your primary care provider within a week You will need to follow up with Dr Pérez for out patient re-imaging of your abdomen (CT abdomen/pelvis) in a week's time Follow up with your urologist in a week's time Follow up with your brush cleaner in a week's time, we are giving you information to see Dr Turner in 7-10days Follow up with your cap machine operator Follow up with your auto travel counselor Resume all your home medications as prescribed Follow up: CT scan of your belly with Dr. Pérez in 1 week BMP (basic metabolic panel) blood work to check your potassium and kidneys in 1 week with your regular doctor. Outpatient gastroenterology follow up for colonscopy once the symptoms have fully resolved. If you think your symptoms are worsening,,fevers, chills, nausea, vomiting, belly pain, inability to eat or new concerns, please return to the emergency room Referrals: Yadira Groves [Primary Care Provider] - 1 Week Bahman Pérez MD [Staff Physician] - 1 Week Ricco Sarmiento MD [Staff Physician] - 1 Week Michelle Rodriguez MD [Staff Physician] - 1 Week Keagan Turner MD [Staff Physician] - 1 Week Disposition: VNS/HOME HEALTH CARE - Home Medications Comprehensive Discharge Medication List: Ambulatory Orders Aspirin 81 mg PO DAILY 09/06/17 Diltiazem Cd [Cardizem Cd -] 180 mg PO DAILY 09/06/17 Furosemide [Lasix -] 40 mg PO HS 09/06/17 Furosemide [Lasix -] 80 mg PO AM 09/06/17 Metoprolol Succinate [Toprol XL -] 100 mg PO BID 09/06/17 Potassium Chloride [K-Dur -] 20 meq PO DAILY 09/06/17 Pravastatin Sodium [Pravachol] 40 mg PO DAILY 09/06/17 Spironolactone [Aldactone -] 25 mg PO DAILY 09/06/17 Apixaban [Eliquis] 5 mg PO BID 09/07/17 Amox-Tr/K Cl [Augmentin - 875Mg Tablet] 1 tab PO BID 7 Days #14 tablet 09/20/17 This patient is new to me today: No Emergency Visit: Yes ED Registration Date: 09/07/17 Care time: The patient presented to the Emergency Department on the above date and was hospitalized for further evaluation of their emergent condition. Critical Care patient: No - Discharge Referral Referred to [facility] Med P.C.: No
== END 2017-09-20 17:15 | disposition home health service (06) | DRG 389 ==
LOC: JER 18:43 → JERBED 09-07 01:55 → J6S 09-07 03:18
PROVIDERS: ADMIT Internal Medicine; ATTEND Hospitalist
PROC: 0D9670Z Drainage of Stomach with Drainage Device, Via Natural or Artificial Opening (ICD-10-PCS; principal; 2017-09-07)
DX: K56.600 Partial intestinal obstruction, unspecified as to cause (principal); K57.20 Diverticulitis of large intestine with perforation and abscess without bleeding; G40.802 Other epilepsy, not intractable, without status epilepticus; N17.9 Acute kidney failure, unspecified; E87.0 Hyperosmolality and hypernatremia; I13.0 Hypertensive heart and chronic kidney disease with heart failure and stage 1 through stage 4 chronic kidney disease, or unspecified chronic kidney disease; I50.32 Chronic diastolic (congestive) heart failure; I25.110 Atherosclerotic heart disease of native coronary artery with unstable angina pectoris; E87.2 Acidosis; K57.90 Diverticulosis of intestine, part unspecified, without perforation or abscess without bleeding; I48.91 Unspecified atrial fibrillation; E87.6 Hypokalemia; E78.5 Hyperlipidemia, unspecified; I45.10 Unspecified right bundle-branch block; D25.9 Leiomyoma of uterus, unspecified; E83.42 Hypomagnesemia; E86.0 Dehydration; I48.2 Chronic atrial fibrillation; N18.3 Chronic kidney disease, stage 3 (moderate); E78.00 Pure hypercholesterolemia, unspecified; E83.39 Other disorders of phosphorus metabolism; I25.2 Old myocardial infarction; E66.8 Other obesity; Z68.38 Body mass index [BMI] 38.0-38.9, adult; I27.20 Pulmonary hypertension, unspecified; R19.7 Diarrhea, unspecified; M10.9 Gout, unspecified; L89.151 Pressure ulcer of sacral region, stage 1; M25.422 Effusion, left elbow; M70.32 Other bursitis of elbow, left elbow; E27.9 Disorder of adrenal gland, unspecified; K80.20 Calculus of gallbladder without cholecystitis without obstruction; D72.828 Other elevated white blood cell count; N93.9 Abnormal uterine and vaginal bleeding, unspecified; Z86.711 Personal history of pulmonary embolism; Z95.5 Presence of coronary angioplasty implant and graft
CPT/HCPCS: 36415; 71045-TC-FY; 73070-TC-LT-FY; 74019-TC-FY; 74021-TC-FY; 74176-TC; 76775-TC; 76856-TC; 80048; 80053; 81003; 81015; 82272; 82436; 82550; 83690; 83735; 84100; 84133; 84300; 84484; 84540; 84550; 85025; 85027; 85610; 85730; 86140; 86850; 86900; 86901; 87040; 87045; 87046; 87086; 87324; 87449; 93005; 93010; 93306-TC; 94761; 97116-GP; 97161-GP; 99285-25; J1644; J7030

== ENCOUNTER 2018-10-27 10:29 | Inpatient (IN) | payer OTHER ==
--- NOTE | 2018-10-27 10:35 | PDOC ---
History of Present Illness - General Chief Complaint: Shortness of Breath Stated Complaint: DIFFICULTY BREATHING Time Seen by Provider: 10/27/18 10:34 History Source: Patient, Family Exam Limitations: Clinical Condition - History of Present Illness Initial Comments: 10/27/18 11:06 87 year old female with PMH HTN, HLD, [place] (2006), atrial fibrillation on Eliquis , PE (06/11 knee surgery), CVA (09/2018), diverticulitis, SBO BIBA to ED for shortness of breath/noisy breathing since yesterday. Pt was hypoxic to 85% per EMS upon EMS arrival, pt was given Decadron 10 mg IV and Nebulized albuterol with improvement of oxygenation to 97%. Pt was seen by PCP x4 days ago for cough , was treated with Cefuroxime. Pt reported no chest pain, no increased leg swelling, fever, lightheadedness. Allergies: NKDA PCP: Germain Past History - Past Medical History Allergies/Adverse Reactions: Allergies Allergy/AdvReac Type Severity Reaction Status Date / Time No Known Allergies Allergy Verified 10/27/18 11:11 Home Medications: Ambulatory Orders Aspirin 81 mg PO DAILY 09/06/17 Diltiazem Cd [Cardizem Cd -] 180 mg PO DAILY 09/06/17 Furosemide [Lasix -] 80 mg PO AM 09/06/17 Metoprolol Succinate [Toprol XL -] 100 mg PO BID 09/06/17 Potassium Chloride [K-Dur -] 20 meq PO DAILY 09/06/17 Pravastatin Sodium [Pravachol] 40 mg PO DAILY 09/06/17 Spironolactone [Aldactone -] 25 mg PO DAILY 09/06/17 Apixaban [Eliquis] 5 mg PO BID 09/07/17 Benzonatate 100 mg PO BID 10/27/18 Cefuroxime Axetil [Cefuroxime] 500 mg PO BID 10/27/18 Ergocalciferol [Vitamin D2] 50,000 unit PO Q7D@1000 10/27/18 Guaifenesin [Mucinex] 600 mg PO BID 10/27/18 Cardiac Disorders: Yes (a fib) COPD: No HTN: Yes Hypercholesterolemia: Yes Seizures: Yes - Surgical History Cardiac Surgery: Yes (colon resection) - Suicide/Smoking/Psychosocial Hx Smoking History: Unknown if ever smoked Hx Alcohol Use: No Review of Systems - Review of Systems Able to Perform ROS?: Yes Comments:: 10/27/18 10:55 General: denied fever, chills, generalized weakness. HEENT: denied sore throat, rhinorrhea, ear pain. Heart: denied chest pain, palpitations, syncope, diaphoresis. Respiratory: admitted to shortness of breath, cough. denied sputum production, hemoptysis. Abdomen: denied abdominal pain, nausea, vomiting, diarrhea, constipation, blood in stool. : denied dysuria, increased urinary frequency, hematuria, urinary incontinence , flank pain. Back: denied back pain. Musculoskeletal: denied joint pain, muscle pain, joint swelling. Neurological: denied headache, dizziness, numbness, tingling, weakness. Skin: denied rash, laceration, abrasion. *Physical Exam - Physical Exam Comments: 10/27/18 10:55 Constitutional: Well-nourished, Well-developed, appearing stated age. HEENT: head is normocephalic, atraumatic. EOMI. PERRLA. Neck: supple. Full ROM. Heart: regular rhythm. no murmurs, rubs or gallops. Lungs: bilateral rhonchi/wheezing/crackles. Abdomen: soft, nontender. normal bowel sounds. no rebound, guarding, masses. Extremities: peripheral pulses intact. 4+ pitting edema bilaterally. Neurological: CN 2-12 grossly intact. moves all four extremities. Psych: awake, alert, oriented x3. follows commands. answers questions appropriately. ED Treatment Course - LABORATORY CBC & Chemistry Diagram: 10/27/18 10:50 10/27/18 10:50 Medical Decision Making - Medical Decision Making 10/27/18 10:57 87 year old female with above PMH BIBA to ED for SOB, was found to be hypoxic to 85% upon EMS arrival, was given Decadron 10 mg and Albuterol nebulizer with improvement of SpO2 to 97% en route. Initial Vital Signs Temp Pulse Resp BP Pulse Ox 97.9 F 80 24 H 124/57 L 100 10/27/18 10:30 10/27/18 10:30 10/27/18 10:30 10/27/18 10:30 10/27/18 10:30 Afebrile. No tachycardia. Tachypnea. Mild diastolic hypotension. No hypoxia on nonrebreather. Labs ordered: CBC, CMP, troponin, BNP Imaging ordered: CXR Medications ordered: duoneb x3, ASA 162 mg PO chew BIPAP ordered. EKG performed at 1058: rate 91, irregularly irregular rhythm, normal axis, low voltage, RBBB. Similar to prior EKG performed 09/06/17. 10/27/18 11:40 Pt placed on BIPAP -12/6, 40% FiO2, Rate 14 10/27/18 11:52 CBC WBC 12.9 K/mm3 (4.0-10.0) H 10/27/18 10:50 RBC 3.72 M/mm3 (3.60-5.2) 10/27/18 10:50 Hgb 9.9 GM/dL (10.7-15.3) L 10/27/18 10:50 Hct 30.7 % (32.4-45.2) L 10/27/18 10:50 MCV 82.5 fl (80-96) 10/27/18 10:50 MCH 26.6 pg (25.7-33.7) 10/27/18 10:50 MCHC 32.2 g/dl (32.0-36.0) 10/27/18 10:50 RDW 19.6 % (11.6-15.6) H 10/27/18 10:50 Plt Count 476 K/MM3 (134-434) H 10/27/18 10:50 MPV 6.6 fl (7.5-11.1) L 10/27/18 10:50 Absolute Neuts (auto) 10.6 K/mm3 (1.5-8.0) H 10/27/18 10:50 Neutrophils % 82.7 % (42.8-82.8) 10/27/18 10:50 Lymphocytes % 10.4 % (8-40) D 10/27/18 10:50 Monocytes % 5.0 % (3.8-10.2) 10/27/18 10:50 Eosinophils % 1.5 % (0-4.5) 10/27/18 10:50 Basophils % 0.4 % (0-2.0) 10/27/18 10:50 Nucleated RBC % 0 % (0-0) 10/27/18 10:50 Leukocytosis with left shift. Thrombocytosis. CMP Sodium 134 mmol/L (136-145) L 10/27/18 10:50 Potassium 4.0 mmol/L (3.5-5.1) 10/27/18 10:50 Chloride 105 mmol/L (98-107) 10/27/18 10:50 Carbon Dioxide 20 mmol/L (21-32) L 10/27/18 10:50 Anion Gap 8 MMOL/L (8-16) 10/27/18 10:50 BUN 41.6 mg/dL (7-18) H 10/27/18 10:50 Creatinine 1.2 mg/dL (0.55-1.3) 10/27/18 10:50 Est GFR (CKD-EPI)AfAm 47.39 10/27/18 10:50 Est GFR (CKD-EPI)NonAf 40.89 10/27/18 10:50 Random Glucose 124 mg/dL (74-106) H 10/27/18 10:50 Calcium 8.7 mg/dL (8.5-10.1) 10/27/18 10:50 Magnesium 2.3 mg/dL (1.8-2.4) 10/27/18 10:50 Total Bilirubin 0.4 mg/dL (0.2-1) 10/27/18 10:50 AST 19 U/L (15-37) 10/27/18 10:50 ALT 16 U/L (13-61) 10/27/18 10:50 Alkaline Phosphatase 136 U/L (45-117) H 10/27/18 10:50 Troponin I < 0.02 ng/ml (0.00-0.05) 10/27/18 10:50 B-Natriuretic Peptide 3628.9 pg/ml (5-450) H 10/27/18 10:50 Total Protein 7.3 g/dl (6.4-8.2) 10/27/18 10:50 Albumin 2.4 g/dl (3.4-5.0) L 10/27/18 10:50 Mild hyponatremia. No JAROD. BNP elevation. Troponin wnl. CXR my and Dr. Arndt's read: left costophrenic angle blunted. left heart border ill-defined, possible infiltrate. -Pending official report. Pt to be admitted for CHF exacerbation, pneumonia. 10/27/18 12:00 Pt reassessed, work of breathing improving, but still wheezing. Medications ordered: magnesium 2 mg IV once, duonebx3, vancomycin, zosyn Results explained to patient and family at bedside. Advised patient to be admitted, patient and family at bedside agree with plan for care. Microblog sent. 10/27/18 13:[address] Page, IM resident, who recs admission under Dr. Buckley's care. Pending admission. 10/27/18 15:31 Pt transitioned from bilevel to nonrebreather, will desaturate to 89% on room air. Currently 100% on nonrebreather. 10/27/18 18:25 CXR report: Chest: Shortness of breath A single AP view of the chest has been submitted. Since the prior study of 09/06/2017, the patient is rotated to the left with large heart, sclerotic unfolded aorta and some increased atelectasis and pleural reaction at the left base. The bones and soft tissues are intact. Correlation and follow -up recommended. Reported By: Esteban Dennis MD 1225 CT chest without contrast report: [id number] CT/CHEST CT WITHOUT CONTRAST Chest CT without contrast Clinical information: evaluate for pneumonia Multiplanar imaging was performed. As requested intravenous contrast was not administered. No prior chest CT studies are available at this facility for direct comparison. Posterior bibasilar infiltrates are noted, left more prominent than right. There is also a small infiltrate within the inferior lingula. No pleural effusion is identified. A 1.4 cm interstitial groundglass opacity seen within the posterior segment of the right upper lobe. 1.4 cm right middle lobe subpleural bulla. Mild multichamber cardiomegaly. No pericardial effusion is noted. The main pulmonary artery is dilated with a 3.7 cm diameter suggestive of increased pulmonary arterial pressure. No obvious lymphadenopathy is noted on noncontrast imaging. There is no aortic aneurysm. The visualized osseous structures demonstrate no obvious acute pathology. There is partial imaging of a left adrenal myelolipoma (as discussed in detail on an abdomen CT study of ). Impression: Bibasilar infiltrates are noted, left more prominent than right. Small lingular infiltrate. A nonspecific 1.4 cm interstitial right upper lobe groundglass opacity is seen which is of doubtful clinical significance. Correlate with 3 month follow-up CT to evaluate stability and exclude developing pathology. Cardiomegaly is probably mild. The main pulmonary artery is dilated suggestive of increased pulmonary arterial pressure. Reported By: Sunny Newton MD 10/27/18 9612 *DC/Admit/Observation/Transfer Diagnosis at time of Disposition: Pneumonia, Leukocytosis, CHF exacerbation, Acute respiratory failure with hypoxia - Discharge Dispostion Condition at time of disposition: Stable Decision to Admit order: Yes - Referrals - Patient Instructions - Post Discharge Activity
[2018-10-27] MEDS ORDERED: ALBUTEROL SO4 2.5/IPRATROPIUM 0.5 INH SOL 3 ML VIAL.NEB. NEB ONE ×4 (10:58→13:00)
[2018-10-27] MEDS ORDERED: ASPIRIN 81 MG CHEWABLE TABLETS PO ONE (10:58)
[2018-10-27 10:59] LABS: BASO % 0.4 % (0-2.0); EOS % 1.5 % (0-4.5); HEMATOCRIT 30.7 % (32.4-45.2); HEMOGLOBIN 9.9 GM/dL (10.7-15.3); LYMPH % 10.4 % (8-40); MCH 26.6 pg (25.7-33.7); MCHC 32.2 g/dl (32.0-36.0); MEAN CELL VOLUME 82.5 fl (80-96); MEAN PLT VOLUME 6.6 fl (7.5-11.1); NEUT % 82.7 % (42.8-82.8); PLATELET COUNT 476 K/MM3 (134-434); RBC 3.72 M/mm3 (3.60-5.2); RDW 19.6 % (11.6-15.6); WHITE BLOOD COUNT 12.9 K/mm3 (4.0-10.0)
[2018-10-27] MEDS ORDERED: ASPIRIN 81 MG CHEWABLE TABLETS ONE (11:03)
[2018-10-27 11:06] LABS: VENOUS PC02 39.9 mmHg (41-51); VENOUS PH 7.33 (7.31-7.41)
[2018-10-27 11:24] LABS: INR 2.35 (0.83-1.09)
[2018-10-27 11:27] LABS: ACTIVATED PTT 36.4 SECONDS (25.2-36.5)
[2018-10-27 11:41] LABS: ALBUMIN 2.4 g/dl (3.4-5.0); ALK PHOS 136 U/L (45-117); ANION GAP 8 MMOL/L (8-16); BILIRUBIN,TOTAL 0.4 mg/dL (0.2-1); BLOOD UREA NITROGEN 41.6 mg/dL (7-18); CALCIUM 8.7 mg/dL (8.5-10.1); CHLORIDE 105 mmol/L (98-107); CO2 20 mmol/L (21-32); CREATININE 1.2 mg/dL (0.55-1.3); GLUCOSE,RANDOM 124 mg/dL (74-106); MAGNESIUM 2.3 mg/dL (1.8-2.4); N-TERMINAL BNP 3628.9 pg/ml (5-450); SGOT/AST 19 U/L (15-37); SGPT/ALT 16 U/L (13-61); SODIUM 134 mmol/L (136-145); TOT PROT 7.3 g/dl (6.4-8.2)
[2018-10-27] MEDS ORDERED: FUROSEMIDE 40 MG/4 ML INJECTABLE VIAL IVPUSH ONE (11:49)
[2018-10-27] MEDS ORDERED: CEFTRIAXONE 1 GM in DEXTROSE 5%-WATER - 100 ML IVPB ONE (11:51)
[2018-10-27] MEDS ORDERED: AZITHROMYCIN IVPB 500 MG in DEXTROSE 5%-WATER - 250 ML IVPB ONE (11:52)
[2018-10-27] MEDS ORDERED: AZITHROMYCIN IVPB 500 MG/250 ML BAG IVPB ONE (11:55)
[2018-10-27] MEDS ORDERED: FUROSEMIDE 40 MG/4 ML INJECTABLE VIAL ONE (11:56)
[2018-10-27] MEDS ORDERED: CEFTRIAXONE 1 GM/50 ML BAG ONE (11:56)
[2018-10-27] MEDS ORDERED: MAGNESIUM SULF 50% (8.12 MEQ/2 ML-1 GM VIAL) IVPB ONE (12:03)
--- NOTE | 2018-10-27 12:05 | PDOC ---
Attending Attestation - Resident Resident Name: Ally Phillips - ED Attending Attestation I have performed the following: I have examined & evaluated the patient, The case was reviewed & discussed with the resident, I agree w/resident's findings & plan, Exceptions are as noted - HPI HPI: 10/27/18 12:07 87yo F hx atrial fib, epilepsy, HTN, diverticulitis, CHF (EF 60% 09/2017) on lasix 80mg qday presents to the ED with cough, SOB, wheezing. Pt is poor historian, daughter reports pt had a productive cough, was prescribed cefuroxime 4 days ago and tessalon pearls Cough slightly improved but pt with progressive SOB Today was unable to walk across the room due to SOB and thus EMS was activated Pt got nebs, decadron en route On arrival to ED, satting 98% on face mask with increased WOB +diminished BS on the L and diffuse wheezing Pt placed on bipap with in line nebs Denies CP, fevers, chills, abd pain, n/v/d, LE edema. Has been compliant with medications. - Physicial Exam PE: 10/27/18 12:19 agree with resident exam - Medical Decision Making 10/27/18 11:19 87yo F presents to the ED with progressive SOB, cough, wheezing DDx includes CHF +/- PNA. Pt has no hx COPD/asthma but will treat as such given diffuse wheezing Will cover with Vanc/Zosyn/azithro given outpt failure cefuroxime Pt also appears to be in CHF, will give 80mg IV lasix (home dose is 80mg PO) Anticipate admission
[2018-10-27] MEDS ORDERED: MAGNESIUM 1GM/D5W - 2 GM/200 ML IVPB IVPB ONE (12:33)
[2018-10-27] MEDS ORDERED: PIPERACILLIN/TAZOB 4.5 GM 4.5 GM in DEXTROSE 5%-WATER 100 ML IVPB ONE (13:00)
[2018-10-27] MEDS ORDERED: VANCOMYCIN 1,000 MG in DEXTROSE 5%-WATER - 250 ML IVPB ONE (13:00)
--- NOTE | 2018-10-27 13:18 | HP ---
CHIEF COMPLAINT: SOB PCP: Dr. Groves Cardio: Dr. Boyd Heme: Dr. Camejo Pulm: Dr. Moreno Neuro: Dr. Olivier HISTORY OF PRESENT ILLNESS: The patient is an 87 yo f w/ PMH HTN, HLD, [place] (2006), CVA, Afib (on eliquis) and provoked PE (s/p orthopedic surgery) who was BIBEMS for a 1 day history of SOB and "noisy breathing." The patient states that for the past week, she has been complaining of a nonproductive cough for the past week. This cough is associated with wheezing as well as a fever to 100.3 measured at home. The patient saw her PCP on Wednesday, who gave her cefuroxime. Per EMS, the patient was found to be hypoxic to 85% on room air. She received decadron 10mg as well as a nebulizer in the field and was brought into to the ED for evaluation. In the ED, the patient was found to have increased work of breathing on 100% NC and was placed on NIPPV. She was given Lasix, zosyn, vancomycin, azithromycin and ceftriaxone. CXR showed pleural effusion vs atalectasis at the left base. 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 Social History: Smoking: denies Alcohol: denies Drugs: denies Family History: non-contributory Allergies No Known Allergies Allergy (Verified 10/27/18 11:11) HOME MEDICATIONS: Home Medications Medication Instructions Recorded Aspirin 81 mg PO DAILY 09/06/17 Diltiazem Cd [Cardizem Cd -] 180 mg PO DAILY 09/06/17 Furosemide [Lasix -] 80 mg PO AM 09/06/17 Metoprolol Succinate [Toprol XL -] 100 mg PO BID 09/06/17 Potassium Chloride [K-Dur -] 20 meq PO DAILY 09/06/17 Pravastatin Sodium [Pravachol] 40 mg PO DAILY 09/06/17 Spironolactone [Aldactone -] 25 mg PO DAILY 09/06/17 Apixaban [Eliquis] 5 mg PO BID 09/07/17 Benzonatate 100 mg PO BID 10/27/18 Cefuroxime Axetil [Cefuroxime] 500 mg PO BID 10/27/18 Ergocalciferol [Vitamin D2] 50,000 unit PO Q7D@1000 10/27/18 Guaifenesin [Mucinex] 600 mg PO BID 10/27/18 REVIEW OF SYSTEMS CONSTITUTIONAL: Absent: fever, chills, diaphoresis, generalized weakness, malaise, loss of appetite, weight change HEENT: Absent: rhinorrhea, nasal congestion, throat pain, throat swelling, difficulty swallowing, mouth swelling, ear pain, eye pain, visual changes CARDIOVASCULAR: Absent: chest pain, syncope, palpitations, irregular heart rate, lightheadedness , peripheral edema RESPIRATORY: Absent: cough, shortness of breath, dyspnea with exertion, orthopnea, wheezing, stridor, hemoptysis GASTROINTESTINAL: Absent: abdominal pain, abdominal distension, nausea, vomiting, diarrhea, constipation, melena, hematochezia GENITOURINARY: Absent: dysuria, frequency, urgency, hesitancy, hematuria, flank pain, genital pain MUSCULOSKELETAL: Absent: myalgia, arthralgia, joint swelling, back pain, neck pain SKIN: Absent: rash, itching, pallor HEMATOLOGIC/IMMUNOLOGIC: Absent: easy bleeding, easy bruising, lymphadenopathy, frequent infections ENDOCRINE: Absent: unexplained weight gain, unexplained weight loss, heat intolerance, cold intolerance NEUROLOGIC: Absent: headache, focal weakness or paresthesias, dizziness, unsteady gait, seizure, mental status changes, bladder or bowel incontinence PSYCHIATRIC: Absent: anxiety, depression, suicidal or homicidal ideation, hallucinations. PHYSICAL EXAMINATION Vital Signs - 24 hr 10/27/18 10/27/18 10:30 11:48 Temperature 97.9 F Pulse Rate 80 102 H Respiratory 24 H Rate Blood Pressure 124/57 L O2 Sat by Pulse 100 99 Oximetry (%) GENERAL: Awake, alert, and fully oriented, in no acute distress. on NIPPV HEAD: Normal with no signs of trauma. EYES: Pupils equal, round and reactive to light, extraocular movements intact, sclera anicteric, conjunctiva clear. No lid lag. LUNGS: Breath sounds equal, Wheezes and ronchi heard in the mid and upper lug ward. Crackles heard at the bases. HEART: Regular rate and rhythm, normal S1 and S2 without murmur, rub or gallop. ABDOMEN: Soft, nontender, not distended, normoactive bowel sounds, no guarding, no rebound, no masses. No hepatomegaly or splenomegaly. LOWER EXTREMITIES: 2+ pulses, warm, well-perfused. No calf tenderness. 3+ peripheral edema. NEUROLOGICAL: Cranial nerves II-X intact. Normal speech. PSYCHIATRIC: Cooperative. Good eye contact. Appropriate mood and affect. SKIN: Warm, dry, normal turgor, no rashes or lesions noted, normal capillary refill. Laboratory Results - last 24 hr 10/27/18 10/27/18 10/27/18 10:50 10:50 10:50 WBC 12.9 H RBC 3.72 Hgb 9.9 L Hct 30.7 L MCV 82.5 MCH 26.6 MCHC 32.2 RDW 19.6 H Plt Count 476 H MPV 6.6 L Absolute Neuts (auto) 10.6 H Neutrophils % 82.7 Lymphocytes % 10.4 D Monocytes % 5.0 Eosinophils % 1.5 Basophils % 0.4 Nucleated RBC % 0 PT with INR 28.00 H INR 2.35 H PTT (Actin FS) 36.4 VBG pH 7.33 POC VBG pCO2 39.9 L POC VBG pO2 95.0 H VBG HCO3 20.6 L VBG O2 Sat (Radha) 95.6 H VBG Base Excess -4.4 L Sodium Potassium Chloride Carbon Dioxide Anion Gap BUN Creatinine Est GFR (CKD-EPI)AfAm Est GFR (CKD-EPI)NonAf Random Glucose Calcium Magnesium Total Bilirubin AST ALT Alkaline Phosphatase Troponin I B-Natriuretic Peptide Total Protein Albumin 10/27/18 10:50 WBC RBC Hgb Hct MCV MCH MCHC RDW Plt Count MPV Absolute Neuts (auto) Neutrophils % Lymphocytes % Monocytes % Eosinophils % Basophils % Nucleated RBC % PT with INR INR PTT (Actin FS) VBG pH POC VBG pCO2 POC VBG pO2 VBG HCO3 VBG O2 Sat (Radha) VBG Base Excess Sodium 134 L Potassium 4.0 Chloride 105 Carbon Dioxide 20 L Anion Gap 8 BUN 41.6 H Creatinine 1.2 Est GFR (CKD-EPI)AfAm 47.39 Est GFR (CKD-EPI)NonAf 40.89 Random Glucose 124 H Calcium 8.7 Magnesium 2.3 Total Bilirubin 0.4 AST 19 ALT 16 Alkaline Phosphatase 136 H Troponin I < 0.02 B-Natriuretic Peptide 3628.9 H Total Protein 7.3 Albumin 2.4 L ASSESSMENT/PLAN: The patient is an 87 yo f w/ PMH HTN, HLD, [place] (2006), CVA, Afib (on eliquis) and provoked PE (s/p orthopedic surgery) who was BIBEMS for a 1 day history of SOB and "noisy breathing." She was found to be hypoxic to 85%. #Acute hypoxic respiratory failure 2/2 Pneumonia vs acute bronchitis with acute CHF excacerbation -CXR showing consolidation vs atalectasis vs effusion -CT chest w/ contrast to better visualize PNA vs effusion -Patient w/ cough, fever, leukocytosis and abnormal cxr; will treat empirically for PNA -s/p azithmargaux figueroaepcaran in ED; will continue -Nebs PRN -Solumedrol 60mg q6h -Lasix 80mg daily IV -daily weights -I&O -fluid restriction, 1L -NIPPV and supplemental O2 to maintain Sat >90% -pulm consult: Josh #chronic leukocytosis, anemia and elevated INR -INR too high to be explained by eliquis alone -Heme consult: Bashir #HTN -resume home cardizem #Afib -resume home Eliquis -resume home toprol XL #FEN -no fluids indicated -lytes WNL -sodium controlled diet once off NIPPV (NPO now) #Prophy -on eliquis #DIspo -admit tele Visit type - Emergency Visit Emergency Visit: Yes ED Registration Date: 10/27/18 Care time: The patient presented to the Emergency Department on the above date and was hospitalized for further evaluation of their emergent condition. - New Patient This patient is new to me today: Yes Date on this admission: 10/27/18 - Critical Care Critical Care patient: No
[2018-10-27] MEDS ORDERED: methylPREDNISolone NA SUCC 40 MG/1 ML VIAL ONE (13:51)
[2018-10-27] MEDS ORDERED: PIPERACILLIN/TAZOB 4.5 GM 4.5 GM/100 ML BAG IVPB ONE (13:51)
[2018-10-27] MEDS ORDERED: VANCOMYCIN 1 GRAM (PRE-DOCKED) 1,000 MG/250 ML BAG IVPB ONE (13:51)
--- NOTE | 2018-10-27 15:25 | PN ---
Teaching Attending Note Name of Resident: Piyush Page ATTENDING PHYSICIAN STATEMENT I saw and evaluated the patient. I reviewed the resident's note and discussed the case with the resident. I agree with the resident's findings and plan as documented. SUBJECTIVE: Reports some improvement in SOB on BiPAP OBJECTIVE: Afebrile, Hemodynamically Stable Last Vital Signs Temp Pulse Resp BP Pulse Ox 97.9 F 97 H 26 H 120/43 L 99 10/27/18 10:30 10/27/18 12:05 10/27/18 12:05 10/27/18 12:05 10/27/18 13:43 HEENT - Atraumatic, Normocephalic, BiPAP Heart - S1, S2, RRR Lungs - Decreased air entry at bases. some wheeze. Abdomen - soft, non-tender. Bowel Sounds normal Extremities - Some edema, no calf tenderness. Laboratory Results - last 24 hr 10/27/18 10/27/18 10/27/18 10:50 10:50 10:50 WBC 12.9 H RBC 3.72 Hgb 9.9 L Hct 30.7 L MCV 82.5 MCH 26.6 MCHC 32.2 RDW 19.6 H Plt Count 476 H MPV 6.6 L Absolute Neuts (auto) 10.6 H Neutrophils % 82.7 Lymphocytes % 10.4 D Monocytes % 5.0 Eosinophils % 1.5 Basophils % 0.4 Nucleated RBC % 0 PT with INR 28.00 H INR 2.35 H PTT (Actin FS) 36.4 VBG pH 7.33 POC VBG pCO2 39.9 L POC VBG pO2 95.0 H VBG HCO3 20.6 L VBG O2 Sat (Radha) 95.6 H VBG Base Excess -4.4 L Sodium Potassium Chloride Carbon Dioxide Anion Gap BUN Creatinine Est GFR (CKD-EPI)AfAm Est GFR (CKD-EPI)NonAf Random Glucose Calcium Magnesium Total Bilirubin AST ALT Alkaline Phosphatase Troponin I B-Natriuretic Peptide Total Protein Albumin 10/27/18 10:50 WBC RBC Hgb Hct MCV MCH MCHC RDW Plt Count MPV Absolute Neuts (auto) Neutrophils % Lymphocytes % Monocytes % Eosinophils % Basophils % Nucleated RBC % PT with INR INR PTT (Actin FS) VBG pH POC VBG pCO2 POC VBG pO2 VBG HCO3 VBG O2 Sat (Radha) VBG Base Excess Sodium 134 L Potassium 4.0 Chloride 105 Carbon Dioxide 20 L Anion Gap 8 BUN 41.6 H Creatinine 1.2 Est GFR (CKD-EPI)AfAm 47.39 Est GFR (CKD-EPI)NonAf 40.89 Random Glucose 124 H Calcium 8.7 Magnesium 2.3 Total Bilirubin 0.4 AST 19 ALT 16 Alkaline Phosphatase 136 H Troponin I < 0.02 B-Natriuretic Peptide 3628.9 H Total Protein 7.3 Albumin 2.4 L Current Medications Generic Name Dose Route Start Last Admin Trade Name Freq PRN Reason Stop Dose Admin Albuterol Sulfate 1 amp 10/27/18 13:14 Ventolin 0.083% Nebulizer Soln - NEB Q4H PRN SHORT OF BREATH/WHEEZING Furosemide 80 mg 10/28/18 10:00 Lasix Injection - IVPUSH DAILY [facility] Azithromycin 500 mg in 250 mls @ 250 mls/hr 10/28/18 10:00 Zithromax 500mg Ivpb (Pre-Docked) IVPB DAILY [facility] Ceftriaxone Sodium 1 gm/ 50 mls @ 100 mls/hr 10/28/18 10:00 Dextrose IVPB DAILY [facility] Protocol Methylprednisolone Sodium Succinate 40 mg 10/27/18 13:45 Solu-Medrol - IVPUSH Q8H-IV ANNA Home Medications Medication Instructions Recorded Aspirin 81 mg PO DAILY 09/06/17 Diltiazem Cd [Cardizem Cd -] 180 mg PO DAILY 09/06/17 Furosemide [Lasix -] 80 mg PO AM 09/06/17 Metoprolol Succinate [Toprol XL -] 100 mg PO BID 09/06/17 Potassium Chloride [K-Dur -] 20 meq PO DAILY 09/06/17 Pravastatin Sodium [Pravachol] 40 mg PO DAILY 09/06/17 Spironolactone [Aldactone -] 25 mg PO DAILY 09/06/17 Apixaban [Eliquis] 5 mg PO BID 09/07/17 Benzonatate 100 mg PO BID 10/27/18 Cefuroxime Axetil [Cefuroxime] 500 mg PO BID 10/27/18 Ergocalciferol [Vitamin D2] 50,000 unit PO Q7D@1000 10/27/18 Guaifenesin [Mucinex] 600 mg PO BID 10/27/18 ASSESSMENT AND PLAN: 87 year old female with history of HTN, HLD, CAD s/p PR and PE s/p orthopedic surgery 2006, Atrial Fibrillation (on Eliquis), BIBEMS with complaints of increasing SOB/cough/fevers, found to be hypoxic at 85% by EMS and in respiratory distress. She was treated for a respiratory tract infection by her PCP with Cefuroxime and Tessalon pearls, but symptoms progressed despite treatment. 1. Acute Hypoxic Respiratory Failure secondary to: A. Possible Pneumonia versus Acute Bronchitis CXR - blunting L CP angle, atelectasis versus pneumonia Given Ceftriaxone/Azithromycin/Zosyn/Vancomycin in ED. Continue Ceftriaxone/Azithromycin Given Decadron by EMS - Continue Solumedrol and Bronchodilator Nebs Pulmonary consult B. Acute diastolic CHF with Pulmonary HTN BNP 3628 IV Lasix diuresis Echo 09/08/17 - Normal EF, RV systolic pressure > 60, Moderate TR Will consult Cardiology and repeat Echo Continue trial of BiPAP Normally on Lasix and Spironolactone - continue. 2. Atrial Fibrillation with RVR Continue Toprol, Diltiazem and Eliquis Will monitor on Tele for HR control. 3. CAD s/p PR - Continue Aspirin, BB, Statin 4. HLD - Continue Statin 5. HTN - Continue Toprol, Diltiazem, Spironolactone 6. Hx PE (provoked) s/p Orthopedic Sx 2006 - on Apixaban. 7. Anemia - H/H 9.9/30.7, normal MCV - mixed Iron and B12 deficiency (Iron Sat 10%, MMA and HC both elevated on recent labs) - should have Iron and B12 supplementation. 8. Elevated INR ? Vitamin K deficiency. On Apixaban. 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 DVT Px - on Apixaban.
[2018-10-27] MEDS: methylPREDNISolone NA SUCC 40 MG/1 ML VIAL IVPUSH SCH ×2 (15:37→19:06)
[2018-10-27] MEDS: ALBUTEROL SO4 2.5/IPRATROPIUM 0.5 INH SOL 3 ML VIAL.NEB. NEB SCH ×2 (15:56→23:03)
--- NOTE | 2018-10-27 17:29 | CONSULT ---
Consultation: REQUESTING PROVIDER: CONSULT REQUEST: We have been asked to medically evaluate this patient for elevated INR. HISTORY OF PRESENT ILLNESS: History is partially taken from the patient and her family present at bedside. 87 year old female with history of HTN, HLD, CAD s/p NJ and PE s/p orthopedic surgery 2006, Atrial Fibrillation (on Eliquis), BIBEMS with complaints of increasing SOB/cough/fevers, found to be hypoxic. She is admitted for acute hypoxic resp failure, PNA. Hematology/Oncology was consulted for elevated INR, on Eliquis. The patient is complainint of SOB, coughing for the past several days. As per her daughter she started wheezing yesterday. She denies chest pain, palpitations , fever, headache. PSH: n/a SH: no toxic habits FH: n/a REVIEW OF SYSTEMS: CONSTITUTIONAL: Absent: fever, chills, diaphoresis, generalized weakness, malaise HEENT: Absent: rhinorrhea, nasal congestion, CARDIOVASCULAR: Absent: chest pain, syncope, palpitations, irregular heart rate, lightheadedness , peripheral edema RESPIRATORY: wheezing, cough, shortness of breath, Absent: dyspnea with exertion, orthopnea, GASTROINTESTINAL: Absent: abdominal pain, abdominal distension, nausea, vomiting, diarrhea, constipation GENITOURINARY: Absent: dysuria, frequency, urgency, hesitancy, hematuria MUSCULOSKELETAL: Absent: myalgia, arthralgia, joint swelling, back pain, SKIN: Absent: rash, itching, pallor HEMATOLOGIC/IMMUNOLOGIC: Absent: easy bleeding, easy bruising, lymphadenopathy, frequent infections ENDOCRINE: Absent: unexplained weight gain, unexplained weight loss, NEUROLOGIC: Absent: headache, focal weakness or paresthesias, dizziness, unsteady gait PSYCHIATRIC: Absent: anxiety, depression PHYSICAL EXAMINATION Vital Signs - 24 hr 10/27/18 10/27/18 10/27/18 10:30 11:48 12:00 Temperature 97.9 F Pulse Rate 80 102 H Pulse Rate [ 99 H Apical] Respiratory 24 H 30 H Rate Blood Pressure 124/57 L Blood Pressure 100/60 [Right Arm] O2 Sat by Pulse 100 99 100 Oximetry (%) 10/27/18 10/27/18 10/27/18 12:05 13:43 14:00 Temperature Pulse Rate Pulse Rate [ 97 H 88 Apical] Respiratory 26 H 30 H Rate Blood Pressure Blood Pressure 120/43 L 116/45 L [Right Arm] O2 Sat by Pulse 100 99 Oximetry (%) 10/27/18 10/27/18 16:00 16:14 Temperature Pulse Rate Pulse Rate [ 93 H Apical] Respiratory 28 H Rate Blood Pressure Blood Pressure 129/69 [Right Arm] O2 Sat by Pulse 99 92 L Oximetry (%) GENERAL: Awake, alert, and fully oriented, in no acute distress. HEAD: Normal with no signs of trauma. EYES: Pupils equal, round and reactive to light, extraocular movements intact. EARS, NOSE, THROAT: on venti mask, MMM NECK: Normal range of motion, supple LUNGS: bilateral wheezes, rhonchi bilaterally, + accessory muscle use. HEART: Irregular rate and rhythm, s1, s2, no rub or gallop. ABDOMEN: Obese, soft, nontender, not distended, normoactive bowel sounds, no guarding, no rebound, no masses. MUSCULOSKELETAL: Normal range of motion at all joints. No bony deformities or tenderness. UPPER EXTREMITIES: 1+ peripheral edema. LOWER EXTREMITIES: 2+ pulses, 2+ peripheral edema. NEUROLOGICAL: no facial asymmetry, awake, alert PSYCHIATRIC: Cooperative. Good eye contact. SKIN: Warm, dry, no rashes. Laboratory Results - last 24 hr 10/27/18 10/27/18 10/27/18 10:50 10:50 10:50 WBC 12.9 H RBC 3.72 Hgb 9.9 L Hct 30.7 L MCV 82.5 MCH 26.6 MCHC 32.2 RDW 19.6 H Plt Count 476 H MPV 6.6 L Absolute Neuts (auto) 10.6 H Neutrophils % 82.7 Lymphocytes % 10.4 D Monocytes % 5.0 Eosinophils % 1.5 Basophils % 0.4 Nucleated RBC % 0 PT with INR 28.00 H INR 2.35 H PTT (Actin FS) 36.4 VBG pH 7.33 POC VBG pCO2 39.9 L POC VBG pO2 95.0 H VBG HCO3 20.6 L VBG O2 Sat (Radha) 95.6 H VBG Base Excess -4.4 L Sodium Potassium Chloride Carbon Dioxide Anion Gap BUN Creatinine Est GFR (CKD-EPI)AfAm Est GFR (CKD-EPI)NonAf Random Glucose Calcium Magnesium Total Bilirubin AST ALT Alkaline Phosphatase Troponin I B-Natriuretic Peptide Total Protein Albumin 10/27/18 10:50 WBC RBC Hgb Hct MCV MCH MCHC RDW Plt Count MPV Absolute Neuts (auto) Neutrophils % Lymphocytes % Monocytes % Eosinophils % Basophils % Nucleated RBC % PT with INR INR PTT (Actin FS) VBG pH POC VBG pCO2 POC VBG pO2 VBG HCO3 VBG O2 Sat (Radha) VBG Base Excess Sodium 134 L Potassium 4.0 Chloride 105 Carbon Dioxide 20 L Anion Gap 8 BUN 41.6 H Creatinine 1.2 Est GFR (CKD-EPI)AfAm 47.39 Est GFR (CKD-EPI)NonAf 40.89 Random Glucose 124 H Calcium 8.7 Magnesium 2.3 Total Bilirubin 0.4 AST 19 ALT 16 Alkaline Phosphatase 136 H Troponin I < 0.02 B-Natriuretic Peptide 3628.9 H Total Protein 7.3 Albumin 2.4 L Active Medications Generic Name Dose Route Start Last Admin Trade Name Freq PRN Reason Stop Dose Admin Albuterol Sulfate 1 amp 10/27/18 13:14 Ventolin 0.083% Nebulizer Soln - NEB Q4H PRN SHORT OF BREATH/WHEEZING Albuterol/Ipratropium 1 amp 10/27/18 16:00 10/27/18 15:56 Duoneb - NEB 1 amp RQID ANNA Administration Apixaban 5 mg 10/27/18 22:00 Eliquis - PO BID [facility] Aspirin 81 mg 10/28/18 10:00 Asa - PO DAILY [facility] Atorvastatin Calcium 10 mg 10/27/18 22:00 Lipitor - PO HS [facility] Cyanocobalamin 1,000 mcg 10/28/18 10:00 Vitamin B12 - PO DAILY [facility] Diltiazem HCl 180 mg 10/28/18 10:00 Cardizem Cd - PO DAILY [facility] Ergocalciferol 50,000 unit 11/03/18 10:00 Drisdol - PO Q7D@1000 [facility] Ferrous Sulfate 325 mg 10/27/18 22:00 Feosol - PO BID [facility] Furosemide 80 mg 10/28/18 10:00 Lasix Injection - IVPUSH DAILY [facility] Guaifenesin 600 mg 10/27/18 22:00 Mucinex - PO BID [facility] Azithromycin 500 mg in 250 mls @ 250 mls/hr 10/28/18 10:00 Zithromax 500mg Ivpb (Pre-Docked) IVPB DAILY [facility] Ceftriaxone Sodium 1 gm/ 50 mls @ 100 mls/hr 10/28/18 10:00 Dextrose IVPB DAILY [facility] Protocol Methylprednisolone Sodium Succinate 40 mg 10/27/18 13:45 10/27/18 15:37 Solu-Medrol - IVPUSH 40 mg Q8H-IV [facility] Administration Metoprolol Succinate 100 mg 10/27/18 22:00 Toprol Xl - PO BID [facility] Non-Formulary Medication 100 mg 10/27/18 22:00 Benzonatate [Benzonatate] PO BID [facility] Spironolactone 25 mg 10/28/18 10:00 Aldactone - PO DAILY [facility] ASSESSMENT/PLAN: 87 year old female with history of HTN, HLD, CAD s/p NJ and PE s/p orthopedic surgery 2006, Atrial Fibrillation (on Eliquis), BIBEMS with complaints of increasing SOB/cough/fevers, admitted for acute hypoxic resp failure, possible PNA. Elevated INR Anemia Hx PE (provoked) s/p Orthopedic Sx 2006 Acute Hypoxic Respiratory Failure secondary possible PNA acute on chronic HF Atrial Fibrillation CAD s/p NJ HLD HTN Plan: elevated INR likely due to hear failure, should resolve with treatment, will follow H/H 9.9, HCT 30.7, f/u iron studies, B12, folate Dispo: We will continue to follow the patient. Thank you for this consultative opportunity. Visit type - Emergency Visit Emergency Visit: Yes ED Registration Date: 10/27/18 Care time: The patient presented to the Emergency Department on the above date and was hospitalized for further evaluation of their emergent condition. - New Patient This patient is new to me today: Yes Date on this admission: 10/27/18 - Critical Care Critical Care patient: No
[2018-10-27] MEDS ORDERED: FERROUS SO4 325 MG TABLET (FP) ONE (22:11)
[2018-10-27] MEDS ORDERED: APIXABAN 5 MG TABLET PO ONE (22:11)
[2018-10-27] MEDS ORDERED: ATORVASTATIN CA 10 MG TABLET (FP) ONE (22:11)
--- NOTE | 2018-10-27 22:14 | CONS ---
DATE OF CONSULTATION: 10/27/2018 TIME OF CONSULTATION: 8:20 p.m. CONSULTATION REQUESTED BY: Eugene Buckley MD CARDIOLOGY CONSULTATION CHIEF COMPLAINT: 1. Persistent cough. 2. Fever. 3. Shortness of breath. 4. Pedal edema. The patient is an 87-year-old female with longstanding history of permanent atrial fibrillation, hypertension, hypertensive cardiovascular disease, hypercholesterolemia, history of myocardial infarction following a knee replacement further complicated by pulmonary thromboembolism and atrial fibrillation. Developed a cough Wednesday and became progressively worse, according to her daughter, and was accompanied by low-grade fever. She was seen by her PCP, who prescribed a cephalosporin. The symptoms persisted and progressed, accompanied by increasing pedal edema and probable mild shortness of breath. They also noted that she had progressive wheezing and finally decided to bring her to the hospital. Prior to coming to the hospital, her appetite was poor. There is no history of orthopnea or paroxysmal nocturnal dyspnea. No history of chest pain or discomfort either at rest or with exertion. PAST HISTORY: 1. As mentioned in the history of present illness. 2. Congestive heart failure. 3. History of a cerebrovascular accident last September, where she had lost her speech. 4. History of epilepsy, currently in remission. 5. History of Herpes zoster. 6. History of anemia. 7. History of diverticulitis. SURGICAL HISTORY: 1. Status post tonsillectomy. 2. Status post right knee replacement. 3. Status post partial colectomy for recurring polyp. SOCIAL HISTORY: . Has a son and daughter; both of them have hypertension. She has never smoked and does not drink alcohol. FAMILY HISTORY: Father at the age of 84 of a myocardial infarction. Mother at age 95. She had atrial fibrillation and due to complications of a cerebrovascular accident. She is an only child. ALLERGIES: ACYCLOVIR caused mental confusion. MEDICATIONS PRIOR TO ADMISSION: As follows: 1. Metoprolol succinate 100 mg p.o. b.i.d. 2. Diltiazem 180 mg p.o. daily. 3. Aspirin 81 mg p.o. daily. 4. Furosemide 80 mg p.o. daily. 5. Potassium chloride 20 mEq p.o. daily. 6. Pravastatin 40 mg p.o. daily. 7. Spironolactone 25 mg p.o. daily. 8. Eliquis 5 mg p.o. daily. 9. Vitamin B2 50,000 units p.o. every 7 days. 10. Mucinex 600 mg p.o. b.i.d. 11. Cefuroxime 500 mg p.o. b.i.d. REVIEW OF SYSTEMS: Constitutional: History of fever and night sweats. No history of chills, no history of unintentional weight loss. HEENT: No history of headaches, diplopia, or blurred vision. No history of epistaxis, hoarseness, tinnitus, or deafness reported. Cardiovascular: See history of present illness. Respiratory: See history of present illness. Gastrointestinal: History of decreased appetite. No history of nausea, vomiting, melena, or hematemesis. No history of abdominal pain or discomfort. No history of change in bowel habits. Endocrine: No history of polyuria or polydipsia. No history of intolerance to cold or warm weather. Musculoskeletal: History of generalized osteoarthritis. Patient has difficulty in ambulating. Genitourinary: No history of dysuria, frequency, or hematuria. Past history of a urinary tract infection. Neurologic: See history of present illness. No history of focal weakness or recent seizures. Hematologic: History of intermittent anemia and vitamin B12 deficiency. PHYSICAL EXAMINATION: General: An 87-year-old female who is alert in time and space. She was dyspneic. No pallor or cyanosis. No clubbing or jaundice. Nailbeds were pink. Vital Signs: Blood pressure 120/97 mmHg, pulse 99 beats/min and irregularly irregular, respirations were 34/min, and her oxygen saturation is 97% on 3 L of oxygen. (Earlier, patient had been on BiPAP.) Neck: Supple, no JVD, positive HJR, carotids were 2+, no bruits were heard, no thyromegaly appreciated. Heart: PMI was in the 5th intercostal space, no heaves or thrills, heart sounds were obscured by coarse breath sounds and expiratory wheezing. Lungs: Bilateral expiratory wheezing, scattered crepitations. Abdomen: Soft, obese, nontender, no hepatosplenomegaly or palpable masses were felt. Extremities: 3+ left lower extremity edema, 2+ right lower extremity edema. Unable to palpate DP/PT pulses. LABORATORY DATA: 1. CT of the chest without contrast, impression: A. Bibasilar infiltrates are noted, left more prominent than right. B. Small lingular infiltrate. C. A nonspecific 1.4-cm interstitial right upper lobe ground glass opacity seen , which is of doubtful clinical significance. Correlate with 3-month followup CT scan to evaluate the stability and exclude developing pathology. D. Cardiomegaly is probably mild. E. The main pulmonary artery is dilated, suggestive of increased pulmonary arterial pressure. 2. ECG is not available. 3. X-ray chest: A single AP view of the chest has been submitted. Since the prior study of September 06, 2017, the patient has rotated to the left with large heart; sclerotic, unfolded aorta; and some increased atelectasis and pleural reaction at the left base. The bones and soft tissue are intact. 4. CBC: A. WBC 12,900, hemoglobin 9.9 g/dL, hematocrit 30.7%, platelet count 476,000. B. Differential: Slightly increased neutrophils and lymphocytes. 5. INR was elevated at 2.35. 6. CMP: A. Sodium 134, potassium 4.0, chloride 105, CO2 of 20 mmol/L, BUN 41.6, creatinine 1.2 mg/dL, random glucose 124 mg/dL, calcium 8.7 mg/dL, magnesium 2.3 mg/dL. B. Alkaline phosphatase was slightly elevated at 136. C. Troponin less than 0.02 on 2 different occasions. D. BNP was elevated at 3628.9 pg/mL. E. Total protein 7.3, albumin was low at 2.4 g/dL. IMPRESSION: 1. Congestive heart failure, NYHA IV. 2. Suspect bilateral pneumonia and asthmatic bronchitis. 3. Hypertension, hypertensive cardiovascular disease. 4. History of coronary artery disease, status post myocardial infarction. 5. Status post pulmonary thromboembolism. 6. Status post cerebrovascular accident without sequelae. 7. Hypercholesterolemia. 8. Permanent atrial fibrillation. 9. Exogenous obesity. 10. History of diverticulitis. RECOMMENDATIONS: 1. Continue IV Lasix. 2. Resume all cardiac medications. 3. Followup ECGs and enzymes. 4. Echocardiogram. 5. Followup basic metabolic profile and CBC. 6. Evaluation of anemia and elevated INR. 7. Followup x-ray chest. PROGNOSIS: Critical. Thank you for the referral. Gia [id number] MTDD
[2018-10-27] MEDS: FERROUS SO4 325 MG TABLET (FP) PO SCH (22:37)
[2018-10-27] MEDS: APIXABAN 5 MG TABLET PO SCH (22:37)
[2018-10-27] MEDS: ATORVASTATIN CA 10 MG TABLET (FP) PO SCH (22:37)
--- NOTE | 2018-10-27 23:33 | PN ---
Teaching Attending Note Name of Resident: Marsha Banks ATTENDING PHYSICIAN STATEMENT I saw and evaluated the patient. I reviewed the resident's note and discussed the case with the resident. I agree with the resident's findings and plan as documented. ASSESSMENT AND PLAN: 87 y/o paient seen and examined in ER --comes in with CHF exacerbation. On lasix /BIPAP 1.Acute on chronic CHF 2. Suspected PNA 3. AF--on eliquis 4. History of CAD 5. History Pulmonary Embolism---on eliquis 6. elevated INR Elevated INR-- congestive hepatopathy+ eliquis r/o occult infection ? pneumonia. chek u/a no bleeding
[2018-10-28] MEDS ORDERED: methylPREDNISolone NA SUCC 40 MG/1 ML VIAL ONE ×2 (01:44→09:26)
[2018-10-28] MEDS: methylPREDNISolone NA SUCC 40 MG/1 ML VIAL IVPUSH SCH ×3 (01:59→17:16)
[2018-10-28] MEDS: guaiFENesin 600 MG TABLET.ER (FP) PO SCH ×3 (01:59→21:29)
[2018-10-28] MEDS ORDERED: FUROSEMIDE 40 MG/4 ML INJECTABLE VIAL ONE ×2 (06:06→09:26)
[2018-10-28] MEDS: ALBUTEROL SO4 2.5/IPRATROPIUM 0.5 INH SOL 3 ML VIAL.NEB. NEB SCH ×4 (07:04→20:20)
[2018-10-28] MEDS ORDERED: ALBUTEROL SO4 0.083% IH SOL 2.5 MG/3 ML VIAL.NEB. NEB ONE (08:41)
[2018-10-28] MEDS ORDERED: APIXABAN 5 MG TABLET PO ONE (09:25)
[2018-10-28] MEDS ORDERED: FERROUS SO4 325 MG TABLET (FP) ONE (09:25)
[2018-10-28] MEDS ORDERED: SPIRONOLACTONE 25 MG TABLET (FP) ONE (09:25)
[2018-10-28] MEDS ORDERED: ASPIRIN 81 MG CHEWABLE TABLETS ONE (09:25)
[2018-10-28] MEDS ORDERED: PT OWN MED DRAWER 7, Y5N ONE (09:26)
[2018-10-28] MEDS ORDERED: AZITHROMYCIN IVPB 500 MG/250 ML BAG IVPB ONE (09:26)
[2018-10-28] MEDS ORDERED: CEFTRIAXONE 1 GM/50 ML BAG ONE (09:26)
[2018-10-28] MEDS: CYANOCOBALAMIN 1,000 MCG TABLET (FP) PO SCH (09:45)
[2018-10-28] MEDS: FUROSEMIDE 40 MG/4 ML INJECTABLE VIAL IVPUSH SCH (09:45)
[2018-10-28] MEDS: SPIRONOLACTONE 25 MG TABLET (FP) PO SCH (09:45)
[2018-10-28] MEDS: APIXABAN 5 MG TABLET PO SCH ×2 (09:45→21:29)
[2018-10-28] MEDS: FERROUS SO4 325 MG TABLET (FP) PO SCH ×2 (09:45→21:29)
[2018-10-28] MEDS: ASPIRIN 81 MG CHEWABLE TABLETS PO SCH (09:45)
[2018-10-28] MEDS: AZITHROMYCIN IVPB 500 MG/250 ML BAG IVPB SCH (09:45)
[2018-10-28] MEDS: CEFTRIAXONE 1 GM in DEXTROSE 5%-WATER - 50 ML IVPB SCH (09:45)
[2018-10-28] MEDS ORDERED: PATIENT'S OWN MEDICATION (NON-FORMULARY) (Pravastatin Sodium [Pravachol] 40 MG) PO SCH (10:00)
--- NOTE | 2018-10-28 11:08 | PN ---
Progress Note, Physician Chief Complaint: seen and examined in ER Daughter at bedside Feels improved from yesterdat but appears tachypneic - Current Medication List Current Medications: Active Medications Albuterol Sulfate (Ventolin 0.083% Nebulizer Soln -) 1 amp NEB Q4H PRN PRN Reason: SHORT OF BREATH/WHEEZING Albuterol/Ipratropium (Duoneb -) 1 amp NEB RQID [facility] Last Admin: 10/28/18 07:04 Dose: Not Given Apixaban (Eliquis -) 5 mg PO BID [facility] Last Admin: 10/28/18 09:45 Dose: 5 mg Aspirin (Asa -) 81 mg PO DAILY [facility] Last Admin: 10/28/18 09:45 Dose: 81 mg Atorvastatin Calcium (Lipitor -) 10 mg PO HS [facility] Last Admin: 10/27/18 22:37 Dose: 10 mg Cyanocobalamin (Vitamin B12 -) 1,000 mcg PO DAILY [facility] Last Admin: 10/28/18 09:45 Dose: 1,000 mcg Diltiazem HCl (Cardizem Cd -) 180 mg PO DAILY [facility] Last Admin: 10/28/18 09:45 Dose: 180 mg Ergocalciferol (Drisdol -) 50,000 unit PO Q7D@1000 [facility] Ferrous Sulfate (Feosol -) 325 mg PO BID [facility] Last Admin: 10/28/18 09:45 Dose: 325 mg Furosemide (Lasix Injection -) 80 mg IVPUSH DAILY [facility] Last Admin: 10/28/18 09:45 Dose: 80 mg Guaifenesin (Mucinex -) 600 mg PO BID [facility] Last Admin: 10/28/18 09:45 Dose: 600 mg Azithromycin (Zithromax 500mg Ivpb (Pre-Docked)) 500 mg in 250 mls @ 250 mls/ hr IVPB DAILY [facility] Last Admin: 10/28/18 09:45 Dose: 250 mls/hr Ceftriaxone Sodium 1 gm/ (Dextrose) 50 mls @ 100 mls/hr IVPB DAILY [facility]; Protocol Last Admin: 10/28/18 09:45 Dose: 100 mls/hr Methylprednisolone Sodium Succinate (Solu-Medrol -) 40 mg IVPUSH Q8H-IV [facility] Last Admin: 10/28/18 09:45 Dose: 40 mg Metoprolol Succinate (Toprol Xl -) 100 mg PO BID [facility] Last Admin: 10/28/18 09:45 Dose: 100 mg Non-Formulary Medication (Benzonatate [Benzonatate]) 100 mg PO BID [facility] Spironolactone (Aldactone -) 25 mg PO DAILY [facility] Last Admin: 10/28/18 09:45 Dose: 25 mg - Objective Vital Signs: Vital Signs Temperature 98.5 F 10/28/18 07:27 Pulse Rate 96 H 10/28/18 07:27 Respiratory Rate 27 H 10/28/18 07:27 Blood Pressure 112/48 L 10/28/18 07:27 O2 Sat by Pulse Oximetry (%) 93 L 10/28/18 07:27 Cardiovascular: Yes: Pulse Irregular Respiratory: Yes: Rales, Rhonchi Gastrointestinal: Yes: Soft, Abdomen, Obese Edema: No Neurological: Yes: Alert Labs: CBC, BMP 10/27/18 10:50 10/27/18 10:50 INR, PTT INR 2.35 (0.83-1.09) H 10/27/18 10:50 Laboratory Tests 10/27/18 10/27/18 10/27/18 10:50 10:50 18:12 WBC 12.9 H Hgb 9.9 L Plt Count 476 H Sodium 134 L Potassium 4.0 Troponin I < 0.02 < 0.02 B-Natriuretic Peptide 3628.9 H - ....Imaging Cat Scan: Report Reviewed, Image Reviewed Assessment/Plan IMP: 1. Acute on chronic CHF 2. Suspected PNA 3. AF 4. History of CAD 5. History Pulmonary Embolism REC: 1. Cont IV Lasix w/ daily weights and BMP to follow renal fxn. Echo pending. Telemetry to assess rate control. 2. NIPPV as needed. 3. Cont Eliquis for AF 4. Cont home Metoprolol, Cardizem 5. F/u cultures, abx, nebs, steroid taper as per primary team Coverage for Dr. Turner
--- NOTE | 2018-10-28 12:57 | ECHO ---
Name: API, EMILY Exam:Adult Echocardiogram Study Date: 10/28/2018 11:13 AM Age: 87 yrs Reason For Study: CHF Height: 61 in Weight: 185 lb BSA: 1.8 m2 MMode/2D Measurements & Calculations IVSd: 1.1 cm Ao root diam: 2.9 cm LVIDd: 4.1 cm LA dimension: 4.0 cm LVIDs: 2.5 cm LVPWd: 1.1 cm EDV(Teich): 74.7 ml LVOT diam: 2.1 cm ESV(Teich): 22.5 ml Doppler Measurements & Calculations TR max gume: 389.3 cm/sec PI end-d gume: 147.0 cm/sec TR max P.6 mmHg Procedure The study was technically difficult with many images being suboptimal in quality. Left Ventricle Left ventricular systolic function is grossly normal. Ejection Fraction = 55-60%. Regional wall motio n abnormalities cannot be excluded due to limited visualization. Right Ventricle The right ventricle is grossly normal size. The right ventricular systolic function is grossly normal . Atria The left atrium is mildly dilated. Right atrial size is normal. Mitral Valve The mitral valve is normal in structure and function. There is no mitral valve stenosis. There is mil d mitral regurgitation. Tricuspid Valve The tricuspid valve is not well visualized, but is grossly normal. There is mild tricuspid regurgitat ion. Right ventricular systolic pressure is elevated at 50-60mmHg. Aortic Valve There is mild aortic sclerosis.;. No hemodynamically significant valvular aortic stenosis. No aortic regurgitation is present. Pulmonic Valve The pulmonic valve is not well visualized. There is no pulmonic valvular stenosis. Mild pulmonic valv ular regurgitation. Great Vessels The aortic root is normal size. Pericardium/Pleura There is no pericardial effusion. Interpretation Summary The study was technically difficult with many images being suboptimal in quality. Regional wall motion abnormalities cannot be excluded due to limited visualization. Left ventricular systolic function is grossly normal. The left atrium is mildly dilated. There is mild mitral regurgitation. There is mild tricuspid regurgitation. Right ventricular systolic pressure is elevated at 50-60mmHg. There is mild aortic sclerosis.; Mild pulmonic valvular regurgitation. There is no pericardial effusion. MD Antonio *Fatoumata 10/28/2018 12:56 PM
--- NOTE | 2018-10-28 13:50 | EKG ---
Test Reason : Blood Pressure : / mmHG Vent. Rate : 091 BPM Atrial Rate : 214 BPM P-R Int : 000 ms QRS Dur : 116 ms QT Int : 364 ms P-R-T Axes : 000 023 255 degrees QTc Int : 447 ms ATRIAL FIBRILLATION LOW VOLTAGE QRS RIGHT BUNDLE BRANCH BLOCK NONSPECIFIC T WAVE ABNORMALITY CANNOT RULE OUT SEPTAL INFARCT , AGE UNDETERMINED Confirmed by SHELIA ALVAREZ MD ([id number]) on 10/28/2018 1:50:25 PM Referred By: Confirmed By:SHELIA ALVAREZ MD
--- NOTE | 2018-10-28 14:09 | PN ---
Physical Exam: SUBJECTIVE: Patient seen this morning and sating 98% on nasal cannula but refusing to wear bipap or have blood draws. OBJECTIVE: Vital Signs Temperature 98.5 F 10/28/18 07:27 Pulse Rate 96 H 10/28/18 07:27 Respiratory Rate 27 H 10/28/18 07:27 Blood Pressure 112/48 L 10/28/18 07:27 O2 Sat by Pulse Oximetry (%) 96 10/28/18 10:25 GENERAL: The patient is awake, alert HEAD: Normal with no signs of trauma. EYES: PERRL, extraocular movements intact, LUNGS: diffuse wheezing, using accessory muscles to breath HEART: Regular rate and rhythm, S1, S2 without murmur, rub or gallop. ABDOMEN: Soft, nontender, nondistended, normoactive bowel sounds, EXTREMITIES: 2+ pulses, warm, well-perfused, no edema. SKIN: Warm, dry, normal turgor, no rashes or lesions noted CBC, BMP 10/27/18 10:50 10/27/18 10:50 Troponin, BNP 10/27/18 18:12 Troponin I < 0.02 Active Medications Albuterol Sulfate (Ventolin 0.083% Nebulizer Soln -) 1 amp NEB Q4H PRN PRN Reason: SHORT OF BREATH/WHEEZING Albuterol/Ipratropium (Duoneb -) 1 amp NEB RQID [facility] Last Admin: 10/28/18 07:04 Dose: Not Given Apixaban (Eliquis -) 5 mg PO BID [facility] Last Admin: 10/28/18 09:45 Dose: 5 mg Aspirin (Asa -) 81 mg PO DAILY [facility] Last Admin: 10/28/18 09:45 Dose: 81 mg Atorvastatin Calcium (Lipitor -) 10 mg PO HS [facility] Last Admin: 10/27/18 22:37 Dose: 10 mg Cyanocobalamin (Vitamin B12 -) 1,000 mcg PO DAILY [facility] Last Admin: 10/28/18 09:45 Dose: 1,000 mcg Diltiazem HCl (Cardizem Cd -) 180 mg PO DAILY [facility] Last Admin: 10/28/18 09:45 Dose: 180 mg Ergocalciferol (Drisdol -) 50,000 unit PO Q7D@1000 [facility] Ferrous Sulfate (Feosol -) 325 mg PO BID [facility] Last Admin: 10/28/18 09:45 Dose: 325 mg Furosemide (Lasix Injection -) 80 mg IVPUSH DAILY [facility] Last Admin: 10/28/18 09:45 Dose: 80 mg Guaifenesin (Mucinex -) 600 mg PO BID [facility] Last Admin: 10/28/18 09:45 Dose: 600 mg Azithromycin (Zithromax 500mg Ivpb (Pre-Docked)) 500 mg in 250 mls @ 250 mls/ hr IVPB DAILY [facility] Last Admin: 10/28/18 09:45 Dose: 250 mls/hr Ceftriaxone Sodium 1 gm/ (Dextrose) 50 mls @ 100 mls/hr IVPB DAILY [facility]; Protocol Last Admin: 10/28/18 09:45 Dose: 100 mls/hr Methylprednisolone Sodium Succinate (Solu-Medrol -) 40 mg IVPUSH Q8H-IV [facility] Last Admin: 10/28/18 09:45 Dose: 40 mg Metoprolol Succinate (Toprol Xl -) 100 mg PO BID [facility] Last Admin: 10/28/18 09:45 Dose: 100 mg Non-Formulary Medication (Benzonatate [Benzonatate]) 100 mg PO BID [facility] Spironolactone (Aldactone -) 25 mg PO DAILY [facility] Last Admin: 10/28/18 09:45 Dose: 25 mg ASSESSMENT/PLAN: Patient is a 89 y/o female with a past medical history of HTN, HLD, [place] (2006), CVA, afib ( on eliquis) and provoked PE who is admitted for PNA. #Acute hypoxic respiratory failure 2/2 to Pneumonia - Chest CT: bibasilar infiltrates L>R, 1.4 UL ground glass opacity, main pulmonary artery dilated suggesting increas pulm arterial pressure - will need f/u CT in 3 months for UL mass - keep saturation above 90%, patient should be on bipap to decrease work of breathing, as patient refuses continue nasal cannula - solumedrol 40 q8h - continue Azithro and Ceftriaxone (day 2) - nebs standing and prn #hx CVA - continue atorvastatin #afib - continue eliquis 5 BID - ECHO:LV sys function grossly normal, left atrium mildly dilated, mild tricuspid regurg, mild pulmonic valvular regurg - spironolactone 25 daily - continue diltiazem #chronic leukocytosis, anemia and elevated INR - Bashir consulted and will follow, INR could be 2/2 to CHF - continue ferrous sulfate #HTN - continue diltiazem - torpol 100 BID FEN - sodium controlled diet Dispo: continue to monitor Visit type - Emergency Visit Emergency Visit: No - New Patient This patient is new to me today: No - Critical Care Critical Care patient: No
--- NOTE | 2018-10-28 14:35 | CON.PULM ---
Consult Consult Specialty:: PULM/CCM Referred by:: Hospitalist Reason for Consultation:: SOB - History of Present Illness Chief Complaint: SOB History of Present Illness: 87 F, HTN, HLD, [place] (2007), CVA, Afib on Eliquis, and provoked PE S/P orthopedic surgery. Admitted via the ER due to a 1 day history of SOB. Apparently she has been having URI symptoms for about1 week. No travel history or sick contacts. She was given cefuroxime by her PMD on Wednesday. EMS was activated and she was found to be hypoxic to 85% on room air. She received decadron 10mg / BD TX in the field. In the ER she was placed on NIPPV due to increased work of breathing on 100% NRBM. Currently she is on [address]: bilateral areas of parenchymal infiltrates / 1.4 cm RUL area of ground glass opacity. - History Source History Provided By: Patient, Medical Record Limitations to Obtaining History: Poor Historian - Past Medical History Cardio/Vascular: Yes: CHF, HTN, Hyperlipdemia Renal/: Yes: Other (mitch in the past) - Alcohol/Substance Use Hx Alcohol Use: No - Smoking History Smoking history: Unknown if ever smoked Have you smoked in the past 12 months: No Home Medications - Allergies Allergies/Adverse Reactions: Allergies Allergy/AdvReac Type Severity Reaction Status Date / Time No Known Allergies Allergy Verified 10/27/18 11:11 - Home Medications Home Medications: Ambulatory Orders Aspirin 81 mg PO DAILY 09/06/17 Diltiazem Cd [Cardizem Cd -] 180 mg PO DAILY 09/06/17 Furosemide [Lasix -] 80 mg PO AM 09/06/17 Metoprolol Succinate [Toprol XL -] 100 mg PO BID 09/06/17 Potassium Chloride [K-Dur -] 20 meq PO DAILY 09/06/17 Pravastatin Sodium [Pravachol] 40 mg PO DAILY 09/06/17 Spironolactone [Aldactone -] 25 mg PO DAILY 09/06/17 Apixaban [Eliquis] 5 mg PO BID 09/07/17 Benzonatate 100 mg PO BID 10/27/18 Cefuroxime Axetil [Cefuroxime] 500 mg PO BID 10/27/18 Ergocalciferol [Vitamin D2] 50,000 unit PO Q7D@1000 10/27/18 Guaifenesin [Mucinex] 600 mg PO BID 10/27/18 Review of Systems - Review of Systems Constitutional: reports: Fever, Malaise. denies: Chills, Night Sweats Eyes: reports: No Symptoms HENT: reports: No Symptoms Neck: reports: No Symptoms Cardiovascular: reports: Shortness of Breath. denies: Chest Pain, Edema, Palpitations Respiratory: reports: Cough, SOB, SOB on Exertion, Wheezing. denies: Hemoptysis , Snoring Gastrointestinal: reports: No Symptoms Genitourinary: reports: No Symptoms Breasts: reports: No Symptoms Reported Musculoskeletal: reports: No Symptoms Integumentary: reports: No Symptoms Neurological: reports: No Symptoms Endocrine: reports: No Symptoms Hematology/Lymphatic: reports: No Symptoms Psychiatric: reports: No Symptoms Physical Exam Vital Sings: Vital Signs Temperature 98.5 F 10/28/18 07:27 Pulse Rate 96 H 10/28/18 07:27 Respiratory Rate 27 H 10/28/18 07:27 Blood Pressure 112/48 L 10/28/18 07:27 O2 Sat by Pulse Oximetry (%) 96 10/28/18 10:25 Constitutional: Yes: Mild Distress Eyes: Yes: Conjunctiva Clear, EOM Intact HENT: Yes: Atraumatic, Normocephalic Neck: Yes: Supple, Trachea Midline Cardiovascular: Yes: Tachycardia, Pulse Irregular Respiratory: Yes: Cough, Diminished, On Nasal O2, Rhonchi, SOB on Exertion, Tachypnea. No: Stridor, Wheezes ...Inspection: Yes: WNL ...Clubbing: No Gastrointestinal: Yes: Normal Bowel Sounds, Soft Renal/: Yes: WNL Musculoskeletal: Yes: WNL Extremities: Yes: WNL Edema: No Peripheral Pulses WNL: Yes Integumentary: Yes: WNL Neurological: Yes: Alert, Oriented Psychiatric: Yes: Alert Labs: CBC, BMP 10/27/18 10:50 10/27/18 10:50 Imaging - Results Chest X-ray: Report Reviewed, Image Reviewed Cat Scan: Report Reviewed, Image Reviewed Problem List - Problems (1) Acute respiratory failure with hypoxia Code(s): J96.01 - ACUTE RESPIRATORY FAILURE WITH HYPOXIA (2) Leukocytosis Code(s): D72.829 - ELEVATED WHITE BLOOD CELL COUNT, UNSPECIFIED (3) Pneumonia Code(s): J18.9 - PNEUMONIA, UNSPECIFIED ORGANISM (4) Atrial fibrillation Code(s): I48.91 - UNSPECIFIED ATRIAL FIBRILLATION (5) CVA (cerebral vascular accident) Code(s): I63.9 - CEREBRAL INFARCTION, UNSPECIFIED (6) Pulmonary embolism Code(s): I26.99 - OTHER PULMONARY EMBOLISM WITHOUT ACUTE COR PULMONALE Assessment/Plan NC O2 NIPPV support as needed and if patient allows Aspiration precautions ABX: Zithromax/Rocephin Check sputum Check Urine Antigen BD TX PRN Will follow Thank you. Dr Prieto
--- NOTE | 2018-10-28 18:37 | PN ---
Teaching Attending Note Name of Resident: Suyapa Rothman ATTENDING PHYSICIAN STATEMENT I saw and evaluated the patient. I reviewed the resident's note and discussed the case with the resident. I agree with the resident's findings and plan as documented. SUBJECTIVE: Reports some improvement in SOB, declining further BiPAP, refusing labs OBJECTIVE: Afebrile, Hemodynamically Stable Last Vital Signs Temp Pulse Resp BP Pulse Ox 98.1 F 104 H 25 H 101/63 99 10/28/18 14:56 10/28/18 14:56 10/28/18 14:56 10/28/18 14:56 10/28/18 16:04 Heart - S1, S2, RRR Lungs - Decreased air entry, worse on lower zones. bilateral wheeze. Abdomen - High BMI, soft, non-tender. Bowel Sounds normal Extremities - Some edema, no calf tenderness. Neuro - AAO x 2. Expressive dysphasia and dysarthria (baseline). Moving all 4 extremities. Laboratory Tests 10/27/18 10/27/18 10/27/18 10:50 10:50 10:50 WBC 12.9 H RBC 3.72 Hgb 9.9 L Hct 30.7 L MCV 82.5 MCH 26.6 MCHC 32.2 RDW 19.6 H Plt Count 476 H MPV 6.6 L Absolute Neuts (auto) 10.6 H Neutrophils % 82.7 Lymphocytes % 10.4 D Monocytes % 5.0 Eosinophils % 1.5 Basophils % 0.4 Nucleated RBC % 0 PT with INR 28.00 H INR 2.35 H PTT (Actin FS) 36.4 VBG pH 7.33 POC VBG pCO2 39.9 L POC VBG pO2 95.0 H VBG HCO3 20.6 L VBG O2 Sat (Radha) 95.6 H VBG Base Excess -4.4 L Sodium Potassium Chloride Carbon Dioxide Anion Gap BUN Creatinine Est GFR (CKD-EPI)AfAm Est GFR (CKD-EPI)NonAf Random Glucose Calcium Magnesium Total Bilirubin AST ALT Alkaline Phosphatase Troponin I B-Natriuretic Peptide Total Protein Albumin 10/27/18 10/27/18 10:50 18:12 WBC RBC Hgb Hct MCV MCH MCHC RDW Plt Count MPV Absolute Neuts (auto) Neutrophils % Lymphocytes % Monocytes % Eosinophils % Basophils % Nucleated RBC % PT with INR INR PTT (Actin FS) VBG pH POC VBG pCO2 POC VBG pO2 VBG HCO3 VBG O2 Sat (Radha) VBG Base Excess Sodium 134 L Potassium 4.0 Chloride 105 Carbon Dioxide 20 L Anion Gap 8 BUN 41.6 H Creatinine 1.2 Est GFR (CKD-EPI)AfAm 47.39 Est GFR (CKD-EPI)NonAf 40.89 Random Glucose 124 H Calcium 8.7 Magnesium 2.3 Total Bilirubin 0.4 AST 19 ALT 16 Alkaline Phosphatase 136 H Troponin I < 0.02 < 0.02 B-Natriuretic Peptide 3628.9 H Total Protein 7.3 Albumin 2.4 L Current Medications Generic Name Dose Route Start Last Admin Trade Name Freq PRN Reason Stop Dose Admin Albuterol Sulfate 1 amp 10/27/18 13:14 Ventolin 0.083% Nebulizer Soln - NEB Q4H PRN SHORT OF BREATH/WHEEZING Albuterol/Ipratropium 1 amp 10/27/18 16:00 10/28/18 16:04 Duoneb - NEB 1 amp RQID [facility] Administration Apixaban 5 mg 10/27/18 22:00 10/28/18 09:45 Eliquis - PO 5 mg BID [facility] Administration Aspirin 81 mg 10/28/18 10:00 10/28/18 09:45 Asa - PO 81 mg DAILY [facility] Administration Atorvastatin Calcium 10 mg 10/27/18 22:00 10/27/18 22:37 Lipitor - PO 10 mg HS [facility] Administration Cyanocobalamin 1,000 mcg 10/28/18 10:00 10/28/18 09:45 Vitamin B12 - PO 1,000 mcg DAILY [facility] Administration Diltiazem HCl 180 mg 10/28/18 10:00 10/28/18 09:45 Cardizem Cd - PO 180 mg DAILY [facility] Administration Ergocalciferol 50,000 unit 11/03/18 10:00 Drisdol - PO Q7D@1000 [facility] Ferrous Sulfate 325 mg 10/27/18 22:00 10/28/18 09:45 Feosol - PO 325 mg BID [facility] Administration Furosemide 80 mg 10/28/18 10:00 10/28/18 09:45 Lasix Injection - IVPUSH 80 mg DAILY [facility] Administration Guaifenesin 600 mg 10/27/18 22:00 10/28/18 09:45 Mucinex - PO 600 mg BID [facility] Administration Azithromycin 500 mg in 250 mls @ 250 mls/hr 10/28/18 10:00 10/28/18 09:45 Zithromax 500mg Ivpb (Pre-Docked) IVPB 250 mls/hr DAILY [facility] Administration Ceftriaxone Sodium 1 gm/ 50 mls @ 100 mls/hr 10/28/18 10:00 10/28/18 09:45 Dextrose IVPB 100 mls/hr DAILY [facility] Administration Protocol Methylprednisolone Sodium Succinate 40 mg 10/27/18 13:45 10/28/18 17:16 Solu-Medrol - IVPUSH 40 mg Q8H-IV [facility] Administration Metoprolol Succinate 100 mg 10/27/18 22:00 10/28/18 09:45 Toprol Xl - PO 100 mg BID [facility] Administration Non-Formulary Medication 100 mg 10/27/18 22:00 Benzonatate [Benzonatate] PO BID [facility] Spironolactone 25 mg 10/28/18 10:00 10/28/18 09:45 Aldactone - PO 25 mg DAILY [facility] Administration ASSESSMENT AND PLAN: 87 year old female with history of HTN, HLD, CAD s/p PA and PE s/p orthopedic surgery 2006, Atrial Fibrillation (on Eliquis), Hx CVA (residual dysarthria/ expressive dysphasia) BIBEMS with complaints of increasing SOB/cough/fevers, found to be hypoxic at 85% by EMS and in respiratory distress. She was treated for a respiratory tract infection by her PCP with Cefuroxime and Tessalon pearls , but symptoms progressed despite treatment. 1. Acute Hypoxic Respiratory Failure secondary to: A. Bilateral Pneumonia CXR - blunting L CP angle, atelectasis versus pneumonia CT Chest - bibasal consolidation Evaluated by Pulmonary Continue Ceftriaxone/Azithromycin Continue BiPAP, Solumedrol and Bronchodilator Nebs Sputum Cx and Urine legionella/Strep Ag pending. B. Acute diastolic CHF with Pulmonary HTN BNP 3628 IV Lasix diuresis ongoing (80mg IV daily) Echo - Normal EF, RV systolic pressure 50-60, Mild MR/TR Continue trial of BiPAP Normally on Lasix and Spironolactone - continue. Cardiology following. 2. Atrial Fibrillation with RVR Continue Toprol, Diltiazem and Eliquis Will monitor on Tele for HR control. 3. CAD s/p PA - Continue Aspirin, BB, Statin 4. HLD - Continue Statin 5. HTN - Continue Toprol, Diltiazem, Spironolactone 6. Hx PE (provoked) s/p Orthopedic Sx 2006 - on Apixaban. 7. Anemia - H/H 9.9/30.7, normal MCV - mixed Iron and B12 deficiency (Iron Sat 10%, MMA and HC both elevated on recent labs) - started on Iron and B12 supplementation. 8. Elevated INR ? Vitamin K deficiency. On Apixaban. Dr. Camejo, patient's ship's cook consulted for unexplained elevated INR. 9. RUL Lung opacity 1.4cm - incidental finding on CT - for 3 month follow up. 10. Hx CVA (residual dysarthria/expressive dysphasia as per daughter) - no new neurological deficits. Continue Eliquis/Statin DVT Px - on Apixaban.
[2018-10-28] MEDS: ATORVASTATIN CA 10 MG TABLET (FP) PO SCH (21:29)
[2018-10-29] MEDS: methylPREDNISolone NA SUCC 40 MG/1 ML VIAL IVPUSH SCH ×4 (05:17→18:36)
[2018-10-29] MEDS: ALBUTEROL SO4 0.083% IH SOL 2.5 MG/3 ML VIAL.NEB. NEB PRN (05:36)
[2018-10-29 07:33] LABS: HEMOGLOBIN 9.3 GM/dL (10.7-15.3); MCH 26.5 pg (25.7-33.7); MEAN CELL VOLUME 82.7 fl (80-96); MEAN PLT VOLUME 6.7 fl (7.5-11.1); PLATELET COUNT 459 K/MM3 (134-434); RBC 3.51 M/mm3 (3.60-5.2); RDW 19.5 % (11.6-15.6); WHITE BLOOD COUNT 15.9 K/mm3 (4.0-10.0)
[2018-10-29] MEDS: ALBUTEROL SO4 2.5/IPRATROPIUM 0.5 INH SOL 3 ML VIAL.NEB. NEB SCH ×4 (08:00→20:57)
[2018-10-29 08:19] LABS: ALBUMIN 2.4 g/dl (3.4-5.0); BILIRUBIN,TOTAL 0.4 mg/dL (0.2-1); BLOOD UREA NITROGEN 48.1 mg/dL (7-18); CALCIUM 9.4 mg/dL (8.5-10.1); CREATININE 1.2 mg/dL (0.55-1.3); POTASSIUM 3.3 mmol/L (3.5-5.1); TOT PROT 7.2 g/dl (6.4-8.2)
--- NOTE | 2018-10-29 09:42 | PN ---
Progress Note, Physician Chief Complaint: feels much better Less tachypnea TELE: AF 80-90 bpm, rare VPCs History of Present Illness: son at bedside, reports patient becomes agitated with IV steroids. - Current Medication List Current Medications: Active Medications Albuterol Sulfate (Ventolin 0.083% Nebulizer Soln -) 1 amp NEB Q4H PRN PRN Reason: SHORT OF BREATH/WHEEZING Last Admin: 10/29/18 05:36 Dose: 1 amp Albuterol/Ipratropium (Duoneb -) 1 amp NEB RQID [facility] Last Admin: 10/28/18 20:20 Dose: 1 amp Apixaban (Eliquis -) 5 mg PO BID [facility] Last Admin: 10/28/18 21:29 Dose: 5 mg Aspirin (Asa -) 81 mg PO DAILY [facility] Last Admin: 10/28/18 09:45 Dose: 81 mg Atorvastatin Calcium (Lipitor -) 10 mg PO HS [facility] Last Admin: 10/28/18 21:29 Dose: 10 mg Cyanocobalamin (Vitamin B12 -) 1,000 mcg PO DAILY [facility] Last Admin: 10/28/18 09:45 Dose: 1,000 mcg Diltiazem HCl (Cardizem Cd -) 180 mg PO DAILY [facility] Last Admin: 10/28/18 09:45 Dose: 180 mg Ergocalciferol (Drisdol -) 50,000 unit PO Q7D@1000 [facility] Ferrous Sulfate (Feosol -) 325 mg PO BID [facility] Last Admin: 10/28/18 21:29 Dose: 325 mg Furosemide (Lasix Injection -) 80 mg IVPUSH DAILY [facility] Last Admin: 10/28/18 09:45 Dose: 80 mg Guaifenesin (Mucinex -) 600 mg PO BID [facility] Last Admin: 10/28/18 21:29 Dose: 600 mg Azithromycin (Zithromax 500mg Ivpb (Pre-Docked)) 500 mg in 250 mls @ 250 mls/ hr IVPB DAILY [facility] Last Admin: 10/28/18 09:45 Dose: 250 mls/hr Ceftriaxone Sodium 1 gm/ (Dextrose) 50 mls @ 100 mls/hr IVPB DAILY [facility]; Protocol Last Admin: 10/28/18 09:45 Dose: 100 mls/hr Methylprednisolone Sodium Succinate (Solu-Medrol -) 40 mg IVPUSH Q8H-IV [facility] Last Admin: 10/29/18 05:17 Dose: 40 mg Metoprolol Succinate (Toprol Xl -) 100 mg PO BID [facility] Last Admin: 10/28/18 21:29 Dose: 100 mg Non-Formulary Medication (Benzonatate [Benzonatate]) 100 mg PO BID [facility] Spironolactone (Aldactone -) 25 mg PO DAILY [facility] Last Admin: 10/28/18 09:45 Dose: 25 mg - Objective Vital Signs: Vital Signs Temperature 97.2 F L 10/28/18 21:00 Pulse Rate 85 10/29/18 05:22 Respiratory Rate 28 H 10/29/18 05:22 Blood Pressure 136/80 10/29/18 05:22 O2 Sat by Pulse Oximetry (%) 97 10/28/18 21:00 Constitutional: Yes: No Distress Eyes: Yes: Conjunctiva Clear Cardiovascular: Yes: Pulse Irregular Respiratory: Yes: Other (rales at bases and scattered expiratory wheezing) Gastrointestinal: Yes: Soft, Abdomen, Obese Edema: Yes Edema: LLE: 2+, RLE: 2+ Neurological: Yes: Alert, Oriented Labs: CBC, BMP 10/29/18 06:52 10/29/18 06:52 INR, PTT INR 2.35 (0.83-1.09) H 10/27/18 10:50 Laboratory Tests 10/27/18 10/27/18 10/27/18 10:50 10:50 18:12 WBC Hgb Plt Count INR 2.35 H Sodium Potassium BUN Creatinine Troponin I < 0.02 < 0.02 10/29/18 10/29/18 06:52 06:52 WBC 15.9 H Hgb 9.3 L Plt Count 459 H INR Sodium 141 Potassium 3.3 L BUN 48.1 H Creatinine 1.2 Troponin I - ....Imaging EKG: Image Reviewed Assessment/Plan IMP: 1. Acute on chronic CHF 2. Suspected PNA 3. AF 4. History of CAD 5. History Pulmonary Embolism REC: 1. Cont IV Lasix w/ daily weights and BMP to follow renal fxn. Echo with normal EF, + PHTN. Telemetry to assess rate control thus far shows adequate control. 2. NIPPV as needed. 3. Cont Eliquis for AF 4. Cont home Metoprolol, Cardizem 5. F/u cultures, abx, nebs, steroid taper as per primary team 6. Replete K+ Coverage for Dr. Turner
[2018-10-29] MEDS ORDERED: cefTRIAXone SODIUM 1 GM VIAL ONE (10:23)
[2018-10-29] MEDS ORDERED: DEXTROSE 5%-WATER - 50 ML IVPB ONE (10:24)
[2018-10-29] MEDS: FUROSEMIDE 40 MG/4 ML INJECTABLE VIAL IVPUSH SCH (10:52)
[2018-10-29] MEDS: ASPIRIN 81 MG CHEWABLE TABLETS PO SCH (11:03)
[2018-10-29] MEDS: SPIRONOLACTONE 25 MG TABLET (FP) PO SCH (11:03)
[2018-10-29] MEDS: POTASSIUM CHLORIDE TABS 20 MEQ TABLET.ER (FP) PO SCH (11:04)
[2018-10-29] MEDS: APIXABAN 5 MG TABLET PO SCH ×2 (11:04→21:42)
[2018-10-29] MEDS: guaiFENesin 600 MG TABLET.ER (FP) PO SCH ×2 (11:05→21:42)
[2018-10-29] MEDS: FERROUS SO4 325 MG TABLET (FP) PO SCH ×2 (11:05→21:42)
[2018-10-29] MEDS: CYANOCOBALAMIN 1,000 MCG TABLET (FP) PO SCH (11:05)
[2018-10-29] MEDS: CEFTRIAXONE 1 GM in DEXTROSE 5%-WATER - 50 ML IVPB SCH (11:27)
[2018-10-29] MEDS: AZITHROMYCIN IVPB 500 MG/250 ML BAG IVPB SCH (12:02)
--- NOTE | 2018-10-29 12:33 | PN ---
Physical Exam: SUBJECTIVE: Patient seen this morning and reports she is feeling better. Still refusing BIPAP. No events overnight. OBJECTIVE: Vital Signs Temperature 97.9 F 10/29/18 10:00 Pulse Rate 85 10/29/18 10:00 Respiratory Rate 24 H 10/29/18 10:00 Blood Pressure 119/60 10/29/18 10:00 O2 Sat by Pulse Oximetry (%) 97 10/28/18 21:00 GENERAL: The patient is awake, alert HEAD: Normal with no signs of trauma. EYES: PERRL, extraocular movements intact, LUNGS: still using accessory muscles to breath, mild diffuse wheezing, HEART: Regular rate and rhythm, S1, S2 without murmur, rub or gallop. ABDOMEN: Soft, nontender, nondistended, normoactive bowel sounds, EXTREMITIES: 2+ pulses, warm, well-perfused, no edema. SKIN: Warm, dry, normal turgor, no rashes or lesions noted CBC, BMP 10/29/18 06:52 10/29/18 06:52 Active Medications Albuterol Sulfate (Ventolin 0.083% Nebulizer Soln -) 1 amp NEB Q4H PRN PRN Reason: SHORT OF BREATH/WHEEZING Last Admin: 10/29/18 05:36 Dose: 1 amp Albuterol/Ipratropium (Duoneb -) 1 amp NEB RQID [facility] Last Admin: 10/29/18 08:00 Dose: 1 amp Apixaban (Eliquis -) 5 mg PO BID [facility] Last Admin: 10/29/18 11:04 Dose: 5 mg Aspirin (Asa -) 81 mg PO DAILY [facility] Last Admin: 10/29/18 11:03 Dose: 81 mg Atorvastatin Calcium (Lipitor -) 10 mg PO HS [facility] Last Admin: 10/28/18 21:29 Dose: 10 mg Cyanocobalamin (Vitamin B12 -) 1,000 mcg PO DAILY [facility] Last Admin: 10/29/18 11:05 Dose: 1,000 mcg Diltiazem HCl (Cardizem Cd -) 180 mg PO DAILY [facility] Last Admin: 10/29/18 11:04 Dose: 180 mg Ergocalciferol (Drisdol -) 50,000 unit PO Q7D@1000 [facility] Ferrous Sulfate (Feosol -) 325 mg PO BID [facility] Last Admin: 10/29/18 11:05 Dose: 325 mg Furosemide (Lasix Injection -) 80 mg IVPUSH DAILY [facility] Last Admin: 10/29/18 10:52 Dose: 80 mg Guaifenesin (Mucinex -) 600 mg PO BID [facility] Last Admin: 10/29/18 11:05 Dose: 600 mg Azithromycin (Zithromax 500mg Ivpb (Pre-Docked)) 500 mg in 250 mls @ 250 mls/ hr IVPB DAILY [facility] Last Admin: 10/29/18 12:02 Dose: 250 mls/hr Ceftriaxone Sodium 1 gm/ (Dextrose) 50 mls @ 100 mls/hr IVPB DAILY [facility]; Protocol Last Admin: 10/29/18 11:27 Dose: 100 mls/hr Methylprednisolone Sodium Succinate (Solu-Medrol -) 40 mg IVPUSH Q8H-IV [facility] Last Admin: 10/29/18 12:06 Dose: Not Given Metoprolol Succinate (Toprol Xl -) 100 mg PO BID [facility] Last Admin: 10/29/18 11:05 Dose: 100 mg Non-Formulary Medication (Benzonatate [Benzonatate]) 100 mg PO BID [facility] Potassium Chloride (K-Dur -) 20 meq PO DAILY [facility] Last Admin: 10/29/18 11:04 Dose: 20 meq Spironolactone (Aldactone -) 25 mg PO DAILY [facility] Last Admin: 10/29/18 11:03 Dose: 25 mg ASSESSMENT/PLAN: Patient is a 89 y/o female with a past medical history of HTN, HLD, [place] (2006), CVA, afib ( on eliquis) and provoked PE who is admitted for PNA. #Acute hypoxic respiratory failure 2/2 to Pneumonia - Chest CT: bibasilar infiltrates L>R, 1.4 UL ground glass opacity, main pulmonary artery dilated suggesting increased pulm arterial pressure - will need f/u CT in 3 months for UL mass - keep saturation above 90%, patient should be on bipap to decrease work of breathing, as patient refuses continue nasal cannula - solumedrol 40 q8h , will continue this dose until wheezing improved - continue Azithro and Ceftriaxone (day 3) - nebs standing and prn #acute diastolic CHF with pulmonary HTN - ECHO:LV sys function grossly normal, left atrium mildly dilated, mild tricuspid regurg, mild pulmonic valvular regurg, PLM HTN 50-60 - continue lasix IV 80 daily #hx CVA - continue atorvastatin, bb, and aspirin #afib - continue eliquis 5 BID - spironolactone 25 daily - continue diltiazem #chronic leukocytosis, anemia and elevated INR - Bashir consulted and will follow, INR could be 2/2 to CHF - continue ferrous sulfate - low FE from last visit, ferrous sulfate 325 BID #HTN - continue diltiazem - torpol 100 BID #DVT ppx - on eliquis FEN - sodium controlled diet Dispo: continue to monitor Visit type - Emergency Visit Emergency Visit: No - New Patient This patient is new to me today: No - Critical Care Critical Care patient: No
--- NOTE | 2018-10-29 12:43 | PN ---
Teaching Attending Note Name of Resident: Suyapa Rothman ATTENDING PHYSICIAN STATEMENT I saw and evaluated the patient. I reviewed the resident's note and discussed the case with the resident. I agree with the resident's findings and plan as documented. SUBJECTIVE: Patient says she feels her breathing is improving. Son is concerned that she is hallucinating from steroids. OBJECTIVE: Vital Signs Period Temp Pulse Resp BP Sys/Kendall Pulse Ox Last 24 Hr 97.2 F-99 F 81-104 24-28 98-136/52-80 96-99 GENERAL: Mild respiratory distress HEART: Irregularly irregular LUNGS: Bilateral rhonchi ABDOMEN: Obese, soft, non-tender, non-distended, normal BS EXTREMITIES: No edema Laboratory Results - last 24 hr 10/29/18 10/29/18 06:52 06:52 WBC 15.9 H RBC 3.51 L Hgb 9.3 L Hct 29.0 L MCV 82.7 MCH 26.5 MCHC 32.0 RDW 19.5 H Plt Count 459 H MPV 6.7 L Sodium 141 Potassium 3.3 L Chloride 106 Carbon Dioxide 26 Anion Gap 8 BUN 48.1 H Creatinine 1.2 Est GFR (CKD-EPI)AfAm 47.39 Est GFR (CKD-EPI)NonAf 40.89 Random Glucose 144 H Calcium 9.4 Total Bilirubin 0.4 AST 24 ALT 18 Alkaline Phosphatase 102 Total Protein 7.2 Albumin 2.4 L Current Medications Generic Name Dose Route Start Last Admin Trade Name Freq PRN Reason Stop Dose Admin Albuterol Sulfate 1 amp 10/27/18 13:14 10/29/18 05:36 Ventolin 0.083% Nebulizer Soln - NEB 1 amp Q4H PRN Administration SHORT OF BREATH/WHEEZING Albuterol/Ipratropium 1 amp 10/27/18 16:00 10/29/18 08:00 Duoneb - NEB 1 amp RQID ANNA Administration Apixaban 5 mg 10/27/18 22:00 10/29/18 11:04 Eliquis - PO 5 mg BID ANNA Administration Aspirin 81 mg 10/28/18 10:00 10/29/18 11:03 Asa - PO 81 mg DAILY ANNA Administration Atorvastatin Calcium 10 mg 10/27/18 22:00 10/28/18 21:29 Lipitor - PO 10 mg HS ANNA Administration Cyanocobalamin 1,000 mcg 10/28/18 10:00 10/29/18 11:05 Vitamin B12 - PO 1,000 mcg DAILY ANNA Administration Diltiazem HCl 180 mg 10/28/18 10:00 10/29/18 11:04 Cardizem Cd - PO 180 mg DAILY ANNA Administration Ergocalciferol 50,000 unit 11/03/18 10:00 Drisdol - PO Q7D@1000 ANNA Ferrous Sulfate 325 mg 10/27/18 22:00 10/29/18 11:05 Feosol - PO 325 mg BID ANNA Administration Furosemide 80 mg 10/28/18 10:00 10/29/18 10:52 Lasix Injection - IVPUSH 80 mg DAILY ANNA Administration Guaifenesin 600 mg 10/27/18 22:00 10/29/18 11:05 Mucinex - PO 600 mg BID ANNA Administration Azithromycin 500 mg in 250 mls @ 250 mls/hr 10/28/18 10:00 10/29/18 12:02 Zithromax 500mg Ivpb (Pre-Docked) IVPB 250 mls/hr DAILY [facility] Administration Ceftriaxone Sodium 1 gm/ 50 mls @ 100 mls/hr 10/28/18 10:00 10/29/18 11:27 Dextrose IVPB 100 mls/hr DAILY ANNA Administration Protocol Methylprednisolone Sodium Succinate 40 mg 10/27/18 13:45 10/29/18 12:06 Solu-Medrol - IVPUSH Not Given Q8H-IV ANNA Metoprolol Succinate 100 mg 10/27/18 22:00 10/29/18 11:05 Toprol Xl - PO 100 mg BID ANNA Administration Non-Formulary Medication 100 mg 10/27/18 22:00 Benzonatate [Benzonatate] PO BID [facility] Potassium Chloride 20 meq 10/29/18 10:00 10/29/18 11:04 K-Dur - PO 20 meq DAILY [facility]NA Administration Spironolactone 25 mg 10/28/18 10:00 10/29/18 11:03 Aldactone - PO 25 mg DAILY ANNA Administration ASSESSMENT AND PLAN: This is an 87 year old woman with a history of HTN, hyperlipidemia, CAD, VA, PE , atrial fibrillation, CVA with dysarthria and expressive dysphasia who presented to the ED with hypoxia, SOB, cough, fever. 1. Acute hypoxic respiratory failure secondary to bilateral pneumonia and acute diastolic heart failure - Continue oxygen to maintain saturation >90% - BiPAP as needed and as tolerated - Continue SoluMedrol, ceftriaxone, Zithromax, Mucinex, DuoNeb - Echo shows normal LV systolic function, mildly dilated LA, mild MR, mild TR , RVSP 50-60mmHg, mild PA - Continue Lasix IV, Aldactone 2. Atrial fibrillation, permanent, with RVR - Rate better - Continue Toprol XL, Cardizem CD, Eliquis 3. Hypokalemia - Replete potassium 4. CAD, history of VA - Continue aspirin, Toprol XL, Lipitor 5. Hyperlipidemia - Continue Lipitor 6. HTN - Continue Toprol XL, Cardizem CD, Aldactone, Lasix 7. History of PE after orthopedic surgery 8. Anemia secondary to iron deficiency, B12 deficiency - Continue ferrous sulfate, B12 supplementation 9. RUL ground glass lung opacity - Incidental finding on CT - needs repeat imaging in 3 months 10. Dysarthria and expressive dysphasia secondary to old CVA - Continue aspirin, Lipitor, Eliquis
[2018-10-29] MEDS ORDERED: methylPREDNISolone NA SUCC 40 MG/1 ML VIAL IVPUSH ONE (14:04)
--- NOTE | 2018-10-29 14:05 | PN ---
Progress Note (short form) - Note Progress Note: Awake and alert. Mildly tachypneic at rest. Audible wheeze. NO stridor. Son had AM dose of steroid held. Explained need for systemic steroids for acute bronchospasm. He has agreed to continue. Intake & Output 10/26/18 10/27/18 10/28/18 10/29/18 23:59 23:59 23:59 23:59 Intake Total 240 Balance 240 Weight 185 lb 185 lb Last Vital Signs Temp Pulse Resp BP Pulse Ox 97.9 F 85 24 H 119/60 94 L 10/29/18 10:00 10/29/18 10:00 10/29/18 10:00 10/29/18 10:00 10/29/18 09:00 Active Medications Albuterol Sulfate (Ventolin 0.083% Nebulizer Soln -) 1 amp NEB Q4H PRN PRN Reason: SHORT OF BREATH/WHEEZING Last Admin: 10/29/18 05:36 Dose: 1 amp Albuterol/Ipratropium (Duoneb -) 1 amp NEB RQID [facility] Last Admin: 10/29/18 12:42 Dose: 1 amp Apixaban (Eliquis -) 5 mg PO BID [facility] Last Admin: 10/29/18 11:04 Dose: 5 mg Aspirin (Asa -) 81 mg PO DAILY [facility] Last Admin: 10/29/18 11:03 Dose: 81 mg Atorvastatin Calcium (Lipitor -) 10 mg PO HS [facility] Last Admin: 10/28/18 21:29 Dose: 10 mg Cyanocobalamin (Vitamin B12 -) 1,000 mcg PO DAILY [facility] Last Admin: 10/29/18 11:05 Dose: 1,000 mcg Diltiazem HCl (Cardizem Cd -) 180 mg PO DAILY [facility] Last Admin: 10/29/18 11:04 Dose: 180 mg Ergocalciferol (Drisdol -) 50,000 unit PO Q7D@1000 [facility] Ferrous Sulfate (Feosol -) 325 mg PO BID [facility] Last Admin: 10/29/18 11:05 Dose: 325 mg Furosemide (Lasix Injection -) 80 mg IVPUSH DAILY [facility] Last Admin: 10/29/18 10:52 Dose: 80 mg Guaifenesin (Mucinex -) 600 mg PO BID [facility] Last Admin: 10/29/18 11:05 Dose: 600 mg Azithromycin (Zithromax 500mg Ivpb (Pre-Docked)) 500 mg in 250 mls @ 250 mls/ hr IVPB DAILY [facility] Last Admin: 10/29/18 12:02 Dose: 250 mls/hr Ceftriaxone Sodium 1 gm/ (Dextrose) 50 mls @ 100 mls/hr IVPB DAILY [facility]; Protocol Last Admin: 10/29/18 11:27 Dose: 100 mls/hr Methylprednisolone Sodium Succinate (Solu-Medrol -) 40 mg IVPUSH Q8H-IV [facility] Last Admin: 10/29/18 12:06 Dose: Not Given Methylprednisolone Sodium Succinate (Solu-Medrol -) 40 mg IVPUSH ONCE ONE Stop: 10/29/18 14:05 Metoprolol Succinate (Toprol Xl -) 100 mg PO BID [facility] Last Admin: 10/29/18 11:05 Dose: 100 mg Non-Formulary Medication (Benzonatate [Benzonatate]) 100 mg PO BID [facility] Nystatin (Nystop Powder -) 1 applic TP DAILY [facility] Potassium Chloride (K-Dur -) 20 meq PO DAILY [facility] Last Admin: 10/29/18 11:04 Dose: 20 meq Spironolactone (Aldactone -) 25 mg PO DAILY [facility] Last Admin: 10/29/18 11:03 Dose: 25 mg Constitutional: Yes: Mild tachypneic at rest Eyes: Yes: Conjunctiva Clear, EOM Intact HENT: Yes: Atraumatic, Normocephalic Neck: Yes: Supple, Trachea Midline Cardiovascular: Yes: Tachycardia, Pulse Irregular Respiratory: Yes: Cough, Expiratory wheeze, On Nasal O2, Rhonchi, SOB, Tachypnea. No: Stridor ...Inspection: Yes: WNL ...Clubbing: No Gastrointestinal: Yes: Normal Bowel Sounds, Soft Renal/: Yes: WNL Musculoskeletal: Yes: WNL Extremities: Yes: WNL Edema: No Peripheral Pulses WNL: Yes Integumentary: Yes: WNL Neurological: Yes: Alert, Oriented Psychiatric: Yes: Alert Labs: Laboratory Results - last 24 hr 10/29/18 10/29/18 06:52 06:52 WBC 15.9 H RBC 3.51 L Hgb 9.3 L Hct 29.0 L MCV 82.7 MCH 26.5 MCHC 32.0 RDW 19.5 H Plt Count 459 H MPV 6.7 L Sodium 141 Potassium 3.3 L Chloride 106 Carbon Dioxide 26 Anion Gap 8 BUN 48.1 H Creatinine 1.2 Est GFR (CKD-EPI)AfAm 47.39 Est GFR (CKD-EPI)NonAf 40.89 Random Glucose 144 H Calcium 9.4 Total Bilirubin 0.4 AST 24 ALT 18 Alkaline Phosphatase 102 Total Protein 7.2 Albumin 2.4 L Problem List - Problems (1) Acute respiratory failure with hypoxia Code(s): J96.01 - ACUTE RESPIRATORY FAILURE WITH HYPOXIA (2) Leukocytosis Code(s): D72.829 - ELEVATED WHITE BLOOD CELL COUNT, UNSPECIFIED (3) Pneumonia Code(s): J18.9 - PNEUMONIA, UNSPECIFIED ORGANISM (4) Atrial fibrillation Code(s): I48.91 - UNSPECIFIED ATRIAL FIBRILLATION (5) CVA (cerebral vascular accident) Code(s): I63.9 - CEREBRAL INFARCTION, UNSPECIFIED (6) Pulmonary embolism Code(s): I26.99 - OTHER PULMONARY EMBOLISM WITHOUT ACUTE COR PULMONALE Assessment/Plan NC O2 as tolerated NIPPV support as needed and if patient allows Aspiration precautions ABX: Zithromax/Rocephin Check sputum BD TX PRN Son has agreed to continue Medrol Dr Prieto Problem List - Problems (1) Acute respiratory failure with hypoxia Code(s): J96.01 - ACUTE RESPIRATORY FAILURE WITH HYPOXIA (2) Leukocytosis Code(s): D72.829 - ELEVATED WHITE BLOOD CELL COUNT, UNSPECIFIED (3) Pneumonia Code(s): J18.9 - PNEUMONIA, UNSPECIFIED ORGANISM (4) Atrial fibrillation Code(s): I48.91 - UNSPECIFIED ATRIAL FIBRILLATION (5) CVA (cerebral vascular accident) Code(s): I63.9 - CEREBRAL INFARCTION, UNSPECIFIED (6) Pulmonary embolism Code(s): I26.99 - OTHER PULMONARY EMBOLISM WITHOUT ACUTE COR PULMONALE
[2018-10-29] MEDS: NYSTATIN POWDER 100,000 UNITS/GM - 15 GM TOPICAL POWDER TP SCH (14:46)
[2018-10-29] MEDS: ATORVASTATIN CA 10 MG TABLET (FP) PO SCH (21:42)
[2018-10-30] MEDS: methylPREDNISolone NA SUCC 40 MG/1 ML VIAL IVPUSH SCH ×3 (01:57→17:09)
[2018-10-30] MEDS ORDERED: LORazepam 2 MG/ML SDV VIAL IVPUSH ONE (03:43)
[2018-10-30 07:33] LABS: HEMATOCRIT 29.9 % (32.4-45.2); HEMOGLOBIN 9.7 GM/dL (10.7-15.3); MCH 27.1 pg (25.7-33.7); MCHC 32.5 g/dl (32.0-36.0); MEAN CELL VOLUME 83.4 fl (80-96); PLATELET COUNT 460 K/MM3 (134-434); RBC 3.58 M/mm3 (3.60-5.2); RDW 18.6 % (11.6-15.6); WHITE BLOOD COUNT 16.8 K/mm3 (4.0-10.0)
[2018-10-30 07:50] LABS: INR 1.88 (0.83-1.09); PROTHROMBIN TIME (PATIENT) 22.3 SEC (9.7-13.0)
[2018-10-30 07:52] LABS: ACTIVATED PTT 29.2 SECONDS (25.2-36.5)
[2018-10-30] MEDS: ALBUTEROL SO4 2.5/IPRATROPIUM 0.5 INH SOL 3 ML VIAL.NEB. NEB SCH ×4 (08:18→20:01)
[2018-10-30 08:23] LABS: BLOOD UREA NITROGEN 52.8 mg/dL (7-18); CREATININE 1.3 mg/dL (0.55-1.3); MAGNESIUM 2.8 mg/dL (1.8-2.4); POTASSIUM 3.3 mmol/L (3.5-5.1)
[2018-10-30] MEDS ORDERED: cefTRIAXone SODIUM 1 GM VIAL ONE (09:33)
[2018-10-30] MEDS ORDERED: DEXTROSE 5%-WATER - 50 ML IVPB ONE (09:34)
[2018-10-30] MEDS: guaiFENesin 600 MG TABLET.ER (FP) PO SCH ×2 (10:05→21:58)
[2018-10-30] MEDS: CYANOCOBALAMIN 1,000 MCG TABLET (FP) PO SCH (10:05)
[2018-10-30] MEDS: ASPIRIN 81 MG CHEWABLE TABLETS PO SCH (10:05)
[2018-10-30] MEDS: POTASSIUM CHLORIDE TABS 20 MEQ TABLET.ER (FP) PO SCH (10:05)
[2018-10-30] MEDS: AZITHROMYCIN IVPB 500 MG/250 ML BAG IVPB SCH (10:05)
[2018-10-30] MEDS: CEFTRIAXONE 1 GM in DEXTROSE 5%-WATER - 50 ML IVPB SCH (10:06)
[2018-10-30] MEDS: APIXABAN 5 MG TABLET PO SCH ×2 (10:06→21:58)
[2018-10-30] MEDS: SPIRONOLACTONE 25 MG TABLET (FP) PO SCH (10:06)
[2018-10-30] MEDS: FUROSEMIDE 40 MG/4 ML INJECTABLE VIAL IVPUSH SCH (10:06)
[2018-10-30] MEDS: NYSTATIN POWDER 100,000 UNITS/GM - 15 GM TOPICAL POWDER TP SCH (10:07)
[2018-10-30] MEDS: FERROUS SO4 325 MG TABLET (FP) PO SCH ×2 (10:07→21:58)
--- NOTE | 2018-10-30 10:17 | PN ---
Progress Note, Physician Chief Complaint: TELE: Rate controlled AF, average rates < 100bpm. Some PVCs and couplets. One or two short runs NSVT (3 beats) Son at bedside. Reports confusion and agitation which he attributes to steroids ; was given Ativan last evening and became confused. - Current Medication List Current Medications: Active Medications Albuterol Sulfate (Ventolin 0.083% Nebulizer Soln -) 1 amp NEB Q4H PRN PRN Reason: SHORT OF BREATH/WHEEZING Last Admin: 10/29/18 05:36 Dose: 1 amp Albuterol/Ipratropium (Duoneb -) 1 amp NEB RQID [facility] Last Admin: 10/30/18 08:18 Dose: 1 amp Apixaban (Eliquis -) 5 mg PO BID [facility] Last Admin: 10/30/18 10:06 Dose: 5 mg Aspirin (Asa -) 81 mg PO DAILY [facility] Last Admin: 10/30/18 10:05 Dose: 81 mg Atorvastatin Calcium (Lipitor -) 10 mg PO HS [facility] Last Admin: 10/29/18 21:42 Dose: 10 mg Cyanocobalamin (Vitamin B12 -) 1,000 mcg PO DAILY [facility] Last Admin: 10/30/18 10:05 Dose: 1,000 mcg Diltiazem HCl (Cardizem Cd -) 180 mg PO DAILY [facility] Last Admin: 10/30/18 10:06 Dose: 180 mg Ergocalciferol (Drisdol -) 50,000 unit PO Q7D@1000 [facility] Ferrous Sulfate (Feosol -) 325 mg PO BID [facility] Last Admin: 10/30/18 10:07 Dose: 325 mg Furosemide (Lasix Injection -) 80 mg IVPUSH DAILY [facility] Last Admin: 10/30/18 10:06 Dose: 80 mg Guaifenesin (Mucinex -) 600 mg PO BID [facility] Last Admin: 10/30/18 10:05 Dose: 600 mg Azithromycin (Zithromax 500mg Ivpb (Pre-Docked)) 500 mg in 250 mls @ 250 mls/ hr IVPB DAILY [facility] Last Admin: 10/30/18 10:05 Dose: 250 mls/hr Ceftriaxone Sodium 1 gm/ (Dextrose) 50 mls @ 100 mls/hr IVPB DAILY [facility]; Protocol Last Admin: 10/30/18 10:06 Dose: 100 mls/hr Methylprednisolone Sodium Succinate (Solu-Medrol -) 40 mg IVPUSH Q8H-IV [facility] Last Admin: 10/30/18 01:57 Dose: 40 mg Metoprolol Succinate (Toprol Xl -) 100 mg PO BID [facility] Last Admin: 10/30/18 10:05 Dose: 100 mg Non-Formulary Medication (Benzonatate [Benzonatate]) 100 mg PO BID [facility] Nystatin (Nystop Powder -) 1 applic TP DAILY [facility] Last Admin: 10/30/18 10:07 Dose: 1 applic Potassium Chloride (K-Dur -) 20 meq PO DAILY [facility] Last Admin: 10/30/18 10:05 Dose: 20 meq Spironolactone (Aldactone -) 25 mg PO DAILY [facility] Last Admin: 10/30/18 10:06 Dose: 25 mg - Objective Vital Signs: Vital Signs Temperature 97.4 F L 10/30/18 06:00 Pulse Rate 99 H 10/30/18 06:00 Respiratory Rate 20 10/30/18 06:00 Blood Pressure 118/72 10/30/18 06:00 O2 Sat by Pulse Oximetry (%) 92 L 10/30/18 08:17 Constitutional: Yes: No Distress, Calm Eyes: Yes: Conjunctiva Clear Cardiovascular: Yes: Pulse Irregular Respiratory: Yes: Rhonchi, Wheezes Gastrointestinal: Yes: Soft, Abdomen, Obese Edema: Yes Edema: LLE: 1+, RLE: 1+ Neurological: Yes: Alert ...Motor Strength: WNL Labs: CBC, BMP 10/30/18 07:00 10/30/18 07:00 INR, PTT INR 1.88 (0.83-1.09) H 10/30/18 07:00 Fibrinogen 408.0 mg/dL (238-498) 10/30/18 07:00 Laboratory Tests 10/27/18 10/29/18 10/30/18 10:50 06:52 07:00 WBC Hgb Plt Count Sodium 141 Potassium 3.3 L BUN 41.6 H 48.1 H 52.8 H Creatinine 1.2 1.3 Calcium 10.0 10/30/18 07:00 WBC 16.8 H Hgb 9.7 L Plt Count 460 H Sodium Potassium BUN Creatinine Calcium - ....Imaging EKG: Image Reviewed Assessment/Plan IMP: 1. Acute on chronic CHF 2. Suspected PNA 3. AF 4. History of CAD 5. History Pulmonary Embolism 6. NSVT REC: 1. Decrease IV Lasix.BUN rising. Seems that bronchospasm triggered by PNA/ infection is the primary issue. 2. NIPPV as needed. 3. Cont Eliquis for AF 4. Cont home Metoprolol, Cardizem. Rates remain well controlled 5. F/u cultures, abx, nebs, steroid taper as per primary team 6. Replete K+ as there is some V-ectopy. (May also be triggered by nebs and steroids) 7. Try to avoid Benzos if possible. Coverage for Dr. Turner
[2018-10-30] MEDS ORDERED: POTASSIUM CHLORIDE TABS 20 MEQ TABLET.ER (FP) PO ONE (11:00)
[2018-10-30] MEDS: PATIENT'S OWN MEDICATION (NON-FORMULARY) (Benzonatate [Benzonatate] 100 MG) PO SCH ×2 (12:53→21:59)
--- NOTE | 2018-10-30 13:28 | PN ---
Progress Note (short form) - Note Progress Note: Drowsy as she received Ativan earlier today. Son at the bedside. Mildly tachypneic at rest. Audible wheeze. NO stridor. Son had 10 AM dose of steroid held. Explained need for systemic steroids for acute bronchospasm. He has agreed to continue. Intake & Output 10/27/18 10/28/18 10/29/18 10/30/18 23:59 23:59 23:59 23:59 Intake Total 240 1025 510 Balance 240 1025 510 Weight 185 lb 185 lb Last Vital Signs Temp Pulse Resp BP Pulse Ox 97.4 F L 99 H 20 118/72 95 10/30/18 06:00 10/30/18 06:00 10/30/18 09:00 10/30/18 06:00 10/30/18 09:00 Active Medications Albuterol Sulfate (Ventolin 0.083% Nebulizer Soln -) 1 amp NEB Q4H PRN PRN Reason: SHORT OF BREATH/WHEEZING Last Admin: 10/29/18 05:36 Dose: 1 amp Albuterol/Ipratropium (Duoneb -) 1 amp NEB RQID [facility] Last Admin: 10/30/18 11:43 Dose: 1 amp Apixaban (Eliquis -) 5 mg PO BID [facility] Last Admin: 10/30/18 10:06 Dose: 5 mg Aspirin (Asa -) 81 mg PO DAILY [facility] Last Admin: 10/30/18 10:05 Dose: 81 mg Atorvastatin Calcium (Lipitor -) 10 mg PO HS [facility] Last Admin: 10/29/18 21:42 Dose: 10 mg Cyanocobalamin (Vitamin B12 -) 1,000 mcg PO DAILY [facility] Last Admin: 10/30/18 10:05 Dose: 1,000 mcg Diltiazem HCl (Cardizem Cd -) 180 mg PO DAILY [facility] Last Admin: 10/30/18 10:06 Dose: 180 mg Ergocalciferol (Drisdol -) 50,000 unit PO Q7D@1000 [facility] Ferrous Sulfate (Feosol -) 325 mg PO BID [facility] Last Admin: 10/30/18 10:07 Dose: 325 mg Furosemide (Lasix Injection -) 40 mg IVPUSH DAILY [facility] Guaifenesin (Mucinex -) 600 mg PO BID [facility] Last Admin: 06/23/19 10:05 Dose: 600 mg Azithromycin (Zithromax 500mg Ivpb (Pre-Docked)) 500 mg in 250 mls @ 250 mls/ hr IVPB DAILY [facility] Last Admin: 10/30/18 10:05 Dose: 250 mls/hr Ceftriaxone Sodium 1 gm/ (Dextrose) 50 mls @ 100 mls/hr IVPB DAILY [facility]; Protocol Last Admin: 10/30/18 10:06 Dose: 100 mls/hr Methylprednisolone Sodium Succinate (Solu-Medrol -) 40 mg IVPUSH Q8H-IV [facility] Last Admin: 10/30/18 01:57 Dose: 40 mg Metoprolol Succinate (Toprol Xl -) 100 mg PO BID [facility] Last Admin: 10/30/18 10:05 Dose: 100 mg Non-Formulary Medication (Benzonatate [Benzonatate]) 100 mg PO BID [facility] Last Admin: 10/30/18 12:53 Dose: Not Given Nystatin (Nystop Powder -) 1 applic TP DAILY [facility] Last Admin: 10/30/18 10:07 Dose: 1 applic Potassium Chloride (K-Dur -) 20 meq PO DAILY [facility] Last Admin: 10/30/18 10:05 Dose: 20 meq Spironolactone (Aldactone -) 25 mg PO DAILY [facility] Last Admin: 10/30/18 10:06 Dose: 25 mg Constitutional: Yes: Lethargic but arousbale, Confused, Mild tachypneic at rest Eyes: Yes: Conjunctiva Clear, EOM Intact HENT: Yes: Atraumatic, Normocephalic Neck: Yes: Supple, Trachea Midline Cardiovascular: Yes: Tachycardia, Pulse Irregular Respiratory: Yes: Cough, Expiratory wheeze, On Nasal O2, Rhonchi, SOB, Tachypnea. No: Stridor ...Inspection: Yes: WNL ...Clubbing: No Gastrointestinal: Yes: Normal Bowel Sounds, Soft Renal/: Yes: WNL Musculoskeletal: Yes: WNL Extremities: Yes: WNL Edema: No Peripheral Pulses WNL: Yes Integumentary: Yes: WNL Neurological: Yes: Alert, Oriented Psychiatric: Yes: Alert Labs: Laboratory Results - last 24 hr 10/30/18 10/30/18 10/30/18 07:00 07:00 07:00 WBC RBC Hgb Hct MCV MCH MCHC RDW Plt Count MPV PT with INR 22.30 H INR 1.88 H PTT (Actin FS) 29.2 Fibrinogen 408.0 Sodium 141 Potassium 3.3 L Chloride 106 Carbon Dioxide 26 Anion Gap 9 BUN 52.8 H Creatinine 1.3 Est GFR (CKD-EPI)AfAm 43.02 Est GFR (CKD-EPI)NonAf 37.12 Random Glucose 170 H Calcium 10.0 Magnesium 2.8 H 10/30/ 07:00 WBC 16.8 H RBC 3.58 L Hgb 9.7 L Hct 29.9 L MCV 83.4 MCH 27.1 MCHC 32.5 RDW 18.6 H Plt Count 460 H MPV 7.0 L PT with INR INR PTT (Actin FS) Fibrinogen Sodium Potassium Chloride Carbon Dioxide Anion Gap BUN Creatinine Est GFR (CKD-EPI)AfAm Est GFR (CKD-EPI)NonAf Random Glucose Calcium Magnesium Problem List - Problems (1) Acute respiratory failure with hypoxia Code(s): J96.01 - ACUTE RESPIRATORY FAILURE WITH HYPOXIA (2) Leukocytosis Code(s): D72.829 - ELEVATED WHITE BLOOD CELL COUNT, UNSPECIFIED (3) Pneumonia Code(s): J18.9 - PNEUMONIA, UNSPECIFIED ORGANISM (4) Atrial fibrillation Code(s): I48.91 - UNSPECIFIED ATRIAL FIBRILLATION (5) CVA (cerebral vascular accident) Code(s): I63.9 - CEREBRAL INFARCTION, UNSPECIFIED (6) Pulmonary embolism Code(s): I26.99 - OTHER PULMONARY EMBOLISM WITHOUT ACUTE COR PULMONALE Assessment/Plan NC O2 as tolerated NIPPV support as needed and if patient allows Aspiration precautions ABX: Zithromax/Rocephin Check sputum if patient allows BD TX PRN Son has agreed to continue Medrol Dr Prieto Problem List - Problems (1) Acute respiratory failure with hypoxia Code(s): J96.01 - ACUTE RESPIRATORY FAILURE WITH HYPOXIA (2) Leukocytosis Code(s): D72.829 - ELEVATED WHITE BLOOD CELL COUNT, UNSPECIFIED (3) Pneumonia Code(s): J18.9 - PNEUMONIA, UNSPECIFIED ORGANISM (4) Atrial fibrillation Code(s): I48.91 - UNSPECIFIED ATRIAL FIBRILLATION (5) CVA (cerebral vascular accident) Code(s): I63.9 - CEREBRAL INFARCTION, UNSPECIFIED (6) Pulmonary embolism Code(s): I26.99 - OTHER PULMONARY EMBOLISM WITHOUT ACUTE COR PULMONALE
--- NOTE | 2018-10-30 13:34 | PN ---
Progress Note, Physician Chief Complaint: Patient received Ativan last night, has been lethargic since, son very upset and thinks that steroids are causing her to be agitated requiring Ativan for agitation. He refused this mornings AM dose of steroids. Patient has been sleeping all morning. - Current Medication List Current Medications: Active Medications Albuterol Sulfate (Ventolin 0.083% Nebulizer Soln -) 1 amp NEB Q4H PRN PRN Reason: SHORT OF BREATH/WHEEZING Last Admin: 10/29/18 05:36 Dose: 1 amp Albuterol/Ipratropium (Duoneb -) 1 amp NEB RQID [facility] Last Admin: 10/30/18 11:43 Dose: 1 amp Apixaban (Eliquis -) 5 mg PO BID [facility] Last Admin: 10/30/18 10:06 Dose: 5 mg Aspirin (Asa -) 81 mg PO DAILY [facility] Last Admin: 10/30/18 10:05 Dose: 81 mg Atorvastatin Calcium (Lipitor -) 10 mg PO HS [facility] Last Admin: 10/29/18 21:42 Dose: 10 mg Cyanocobalamin (Vitamin B12 -) 1,000 mcg PO DAILY [facility] Last Admin: 10/30/18 10:05 Dose: 1,000 mcg Diltiazem HCl (Cardizem Cd -) 180 mg PO DAILY [facility] Last Admin: 10/30/18 10:06 Dose: 180 mg Ergocalciferol (Drisdol -) 50,000 unit PO Q7D@1000 [facility] Ferrous Sulfate (Feosol -) 325 mg PO BID [facility] Last Admin: 10/30/18 10:07 Dose: 325 mg Furosemide (Lasix Injection -) 40 mg IVPUSH DAILY [facility] Guaifenesin (Mucinex -) 600 mg PO BID [facility] Last Admin: 10/30/18 10:05 Dose: 600 mg Azithromycin (Zithromax 500mg Ivpb (Pre-Docked)) 500 mg in 250 mls @ 250 mls/ hr IVPB DAILY [facility] Last Admin: 10/30/18 10:05 Dose: 250 mls/hr Ceftriaxone Sodium 1 gm/ (Dextrose) 50 mls @ 100 mls/hr IVPB DAILY [facility]; Protocol Last Admin: 10/30/18 10:06 Dose: 100 mls/hr Methylprednisolone Sodium Succinate (Solu-Medrol -) 40 mg IVPUSH Q8H-IV [facility] Last Admin: 06/23/19 01:57 Dose: 40 mg Metoprolol Succinate (Toprol Xl -) 100 mg PO BID [facility] Last Admin: 10/30/18 10:05 Dose: 100 mg Non-Formulary Medication (Benzonatate [Benzonatate]) 100 mg PO BID [facility] Last Admin: 10/30/18 12:53 Dose: Not Given Nystatin (Nystop Powder -) 1 applic TP DAILY [facility] Last Admin: 10/30/18 10:07 Dose: 1 applic Potassium Chloride (K-Dur -) 20 meq PO DAILY [facility] Last Admin: 10/30/18 10:05 Dose: 20 meq Spironolactone (Aldactone -) 25 mg PO DAILY [facility] Last Admin: 10/30/18 10:06 Dose: 25 mg - Objective Vital Signs: Vital Signs Temperature 97.4 F L 10/30/18 06:00 Pulse Rate 99 H 10/30/18 06:00 Respiratory Rate 20 10/30/18 09:00 Blood Pressure 118/72 10/30/18 06:00 O2 Sat by Pulse Oximetry (%) 95 10/30/18 09:00 Cardiovascular: Yes: WNL, Regular Rate and Rhythm Respiratory: Yes: Cough, Tachypnea, Wheezes Gastrointestinal: Yes: Normal Bowel Sounds, Soft, Abdomen, Obese Musculoskeletal: Yes: WNL Extremities: Yes: WNL Edema: Yes Edema: LLE: 1+, RLE: 1+ Peripheral Pulses WNL: Yes Neurological: Yes: Confusion, Dysarthria, Other (lethargy) Labs: CBC, BMP 10/30/18 07:00 10/30/18 07:00 INR, PTT INR 1.88 (0.83-1.09) H 10/30/18 07:00 Fibrinogen 408.0 mg/dL (238-498) 10/30/18 07:00 Problem List - Problems (1) Acute respiratory failure with hypoxia Code(s): J96.01 - ACUTE RESPIRATORY FAILURE WITH HYPOXIA (2) Atrial fibrillation Code(s): I48.91 - UNSPECIFIED ATRIAL FIBRILLATION (3) CHF exacerbation Code(s): I50.9 - HEART FAILURE, UNSPECIFIED (4) CVA (cerebral vascular accident) Code(s): I63.9 - CEREBRAL INFARCTION, UNSPECIFIED (5) Leukocytosis Code(s): D72.829 - ELEVATED WHITE BLOOD CELL COUNT, UNSPECIFIED (6) Pneumonia Code(s): J18.9 - PNEUMONIA, UNSPECIFIED ORGANISM Assessment/Plan 87 y/o female with a PMHx of HTN, HLD, CAD, CVA, afib on eliquis and provoked PE who is admitted for pneumonia Assessment: Acute hypoxic respiratory failure secondary to pneumonia Acute Diastolic CHF exacerbation CVA hx Afib Chronic Leukocytosis HTN PE Plan: after son spoke to dr. hayward he is now agreeable to restart the IV steroids cw IV antibiotics inhaled BD IV lasix, dose decreased eliquis cardizem/aldactone/toprol needs outpatient hemeonc fu for chronic leukocytosis/anemia AVOID benzos replete lytes as needed cardio fu
[2018-10-30] MEDS: ATORVASTATIN CA 10 MG TABLET (FP) PO SCH (21:58)
[2018-10-31] MEDS: methylPREDNISolone NA SUCC 40 MG/1 ML VIAL IVPUSH SCH ×3 (02:24→21:27)
[2018-10-31] MEDS: ALBUTEROL SO4 2.5/IPRATROPIUM 0.5 INH SOL 3 ML VIAL.NEB. NEB SCH ×4 (07:25→20:35)
--- NOTE | 2018-10-31 09:27 | PN ---
Physical Exam: SUBJECTIVE: Patient seen this morning. Family upset about steroids, reiterated the importance of her getting them. OBJECTIVE: Vital Signs Temperature 98.4 F 10/31/18 06:00 Pulse Rate 81 10/31/18 06:00 Respiratory Rate 20 10/31/18 06:00 Blood Pressure 147/63 10/31/18 06:00 O2 Sat by Pulse Oximetry (%) 93 L 10/30/18 20:54 GENERAL: The patient is awake, alert HEAD: Normal with no signs of trauma. EYES: PERRL, extraocular movements intact, LUNGS: mild diffuse wheezing, less acessory muscle use HEART: Regular rate and rhythm, S1, S2 without murmur, rub or gallop. ABDOMEN: Soft, nontender, nondistended, normoactive bowel sounds, EXTREMITIES: 2+ pulses, warm, well-perfused, no edema. SKIN: Warm, dry, normal turgor, no rashes or lesions noted Active Medications Albuterol Sulfate (Ventolin 0.083% Nebulizer Soln -) 1 amp NEB Q4H PRN PRN Reason: SHORT OF BREATH/WHEEZING Last Admin: 10/29/18 05:36 Dose: 1 amp Albuterol/Ipratropium (Duoneb -) 1 amp NEB RQID [facility] Last Admin: 10/31/18 07:25 Dose: 1 amp Apixaban (Eliquis -) 5 mg PO BID [facility] Last Admin: 10/30/18 21:58 Dose: 5 mg Aspirin (Asa -) 81 mg PO DAILY [facility] Last Admin: 10/30/18 10:05 Dose: 81 mg Atorvastatin Calcium (Lipitor -) 10 mg PO HS [facility] Last Admin: 10/30/18 21:58 Dose: 10 mg Cyanocobalamin (Vitamin B12 -) 1,000 mcg PO DAILY [facility] Last Admin: 10/30/18 10:05 Dose: 1,000 mcg Diltiazem HCl (Cardizem Cd -) 180 mg PO DAILY [facility] Last Admin: 10/30/18 10:06 Dose: 180 mg Ergocalciferol (Drisdol -) 50,000 unit PO Q7D@1000 [facility] Ferrous Sulfate (Feosol -) 325 mg PO BID [facility] Last Admin: 10/30/18 21:58 Dose: 325 mg Furosemide (Lasix Injection -) 40 mg IVPUSH DAILY [facility] Guaifenesin (Mucinex -) 600 mg PO BID [facility] Last Admin: 10/30/18 21:58 Dose: 600 mg Azithromycin (Zithromax 500mg Ivpb (Pre-Docked)) 500 mg in 250 mls @ 250 mls/ hr IVPB DAILY [facility] Last Admin: 10/30/18 10:05 Dose: 250 mls/hr Ceftriaxone Sodium 1 gm/ (Dextrose) 50 mls @ 100 mls/hr IVPB DAILY [facility]; Protocol Last Admin: 10/30/18 10:06 Dose: 100 mls/hr Methylprednisolone Sodium Succinate (Solu-Medrol -) 40 mg IVPUSH Q8H-IV [facility] Last Admin: 10/31/18 02:24 Dose: 40 mg Metoprolol Succinate (Toprol Xl -) 100 mg PO BID [facility] Last Admin: 10/30/18 21:58 Dose: 100 mg Non-Formulary Medication (Benzonatate [Benzonatate]) 100 mg PO BID [facility] Last Admin: 10/30/18 21:59 Dose: Not Given Nystatin (Nystop Powder -) 1 applic TP DAILY [facility] Last Admin: 10/30/18 10:07 Dose: 1 applic Potassium Chloride (K-Dur -) 20 meq PO DAILY [facility] Last Admin: 10/30/18 10:05 Dose: 20 meq Spironolactone (Aldactone -) 25 mg PO DAILY [facility] Last Admin: 10/30/18 10:06 Dose: 25 mg ASSESSMENT/PLAN: Patient is a 89 y/o female with a past medical history of HTN, HLD, DC (2006), CVA, afib ( on eliquis) and provoked PE who is admitted for PNA. #Acute hypoxic respiratory failure 2/2 to Pneumonia - Chest CT: bibasilar infiltrates L>R, 1.4 UL ground glass opacity, main pulmonary artery dilated suggesting increased pulm arterial pressure - will need f/u CT in 3 months for UL mass - keep saturation above 90%, NC as needed - solumedrol 40 BID, will continue steroids and continue to decrease as indicated - continue Azithro and Ceftriaxone (day 5) - nebs standing and prn - incentive spirometer q1h #acute diastolic CHF with pulmonary HTN - ECHO:LV sys function grossly normal, left atrium mildly dilated, mild tricuspid regurg, mild pulmonic valvular regurg, PLM HTN 50-60 - continue lasix IV 80 daily, per cardio consider reducing will discuss #hx CVA - continue atorvastatin, bb, and aspirin #afib - continue eliquis 5 BID - spironolactone 25 daily - continue diltiazem #anemia 2/2 to iron deficiency - continue ferrous sulfate - low FE from last visit, ferrous sulfate 325 BID - INR resolving #HTN - continue diltiazem - torpol 100 BID #DVT ppx - on eliquis FEN - sodium controlled diet - f/u with PT Dispo: continue to monitor, will taper down steroids as indicated Visit type - Emergency Visit Emergency Visit: No - New Patient This patient is new to me today: No - Critical Care Critical Care patient: No
[2018-10-31] MEDS ORDERED: DEXTROSE 5%-WATER - 50 ML IVPB ONE (09:59)
[2018-10-31] MEDS ORDERED: cefTRIAXone SODIUM 1 GM VIAL ONE (09:59)
[2018-10-31] MEDS: AZITHROMYCIN IVPB 500 MG/250 ML BAG IVPB SCH (10:22)
[2018-10-31] MEDS: CEFTRIAXONE 1 GM in DEXTROSE 5%-WATER - 50 ML IVPB SCH (10:22)
[2018-10-31] MEDS: FUROSEMIDE 40 MG/4 ML INJECTABLE VIAL IVPUSH SCH (10:23)
[2018-10-31 10:35] LABS: BASO % 0.1 % (0-2.0); HEMATOCRIT 31.1 % (32.4-45.2); HEMOGLOBIN 9.7 GM/dL (10.7-15.3); LYMPH % 3.3 % (8-40); MCH 26.1 pg (25.7-33.7); MCHC 31.2 g/dl (32.0-36.0); MEAN CELL VOLUME 83.5 fl (80-96); MEAN PLT VOLUME 7.1 fl (7.5-11.1); MONO % 1.8 % (3.8-10.2); NEUT % 94.8 % (42.8-82.8); PLATELET COUNT 475 K/MM3 (134-434); RBC 3.72 M/mm3 (3.60-5.2); RDW 18.8 % (11.6-15.6); WHITE BLOOD COUNT 13.1 K/mm3 (4.0-10.0)
[2018-10-31] MEDS: POTASSIUM CHLORIDE TABS 20 MEQ TABLET.ER (FP) PO SCH (10:38)
[2018-10-31] MEDS: SPIRONOLACTONE 25 MG TABLET (FP) PO SCH (10:39)
[2018-10-31] MEDS: FERROUS SO4 325 MG TABLET (FP) PO SCH ×2 (10:39→21:26)
[2018-10-31] MEDS: CYANOCOBALAMIN 1,000 MCG TABLET (FP) PO SCH (10:39)
[2018-10-31] MEDS: APIXABAN 5 MG TABLET PO SCH ×2 (10:39→21:27)
[2018-10-31] MEDS: guaiFENesin 600 MG TABLET.ER (FP) PO SCH ×2 (10:39→21:26)
[2018-10-31] MEDS: ASPIRIN 81 MG CHEWABLE TABLETS PO SCH (10:39)
[2018-10-31] MEDS: NYSTATIN POWDER 100,000 UNITS/GM - 15 GM TOPICAL POWDER TP SCH (10:40)
[2018-10-31] MEDS: PATIENT'S OWN MEDICATION (NON-FORMULARY) (Benzonatate [Benzonatate] 100 MG) PO SCH ×2 (10:53→21:27)
[2018-10-31 11:06] LABS: CALCIUM 10.1 mg/dL (8.5-10.1); CREATININE 1.3 mg/dL (0.55-1.3); POTASSIUM 3.8 mmol/L (3.5-5.1)
--- NOTE | 2018-10-31 11:09 | PN ---
Progress Note (short form) - Note Progress Note: Dr. Ham's follow up appreciated. 87-year-old female with longstanding history of permanent atrialfibrillation, hypertension, hypertensive cardiovascular disease, hypercholesterolemia, history of myocardial infarction following a knee replacementfurther complicated by pulmonary thromboembolism and atrial fibrillation. Patient was admitted with progressive cough, accompanied by low grade fever and accompanied by low grade fever. She was diagnosed to have bilateral pneumonia and congestive heart failure. Patient is lethargic and has periods of confusion. According to her daughter, the confusion apparently started after being placed on IV steroids. She is resting comfortably and has minimal cough. Active Medications Albuterol Sulfate (Ventolin 0.083% Nebulizer Soln -) 1 amp NEB Q4H PRN PRN Reason: SHORT OF BREATH/WHEEZING Last Admin: 10/29/18 05:36 Dose: 1 amp Albuterol/Ipratropium (Duoneb -) 1 amp NEB RQID [facility] Last Admin: 10/31/18 07:25 Dose: 1 amp Apixaban (Eliquis -) 5 mg PO BID [facility] Last Admin: 10/31/18 10:39 Dose: 5 mg Aspirin (Asa -) 81 mg PO DAILY [facility] Last Admin: 10/31/18 10:39 Dose: 81 mg Atorvastatin Calcium (Lipitor -) 10 mg PO HS [facility] Last Admin: 10/30/18 21:58 Dose: 10 mg Cyanocobalamin (Vitamin B12 -) 1,000 mcg PO DAILY [facility] Last Admin: 10/31/18 10:39 Dose: 1,000 mcg Diltiazem HCl (Cardizem Cd -) 180 mg PO DAILY [facility] Last Admin: 10/31/18 10:39 Dose: 180 mg Ergocalciferol (Drisdol -) 50,000 unit PO Q7D@1000 [facility] Ferrous Sulfate (Feosol -) 325 mg PO BID [facility] Last Admin: 10/31/18 10:39 Dose: 325 mg Furosemide (Lasix Injection -) 40 mg IVPUSH DAILY [facility] Last Admin: 10/31/18 10:23 Dose: 40 mg Guaifenesin (Mucinex -) 600 mg PO BID [facility] Last Admin: 10/31/18 10:39 Dose: 600 mg Azithromycin (Zithromax 500mg Ivpb (Pre-Docked)) 500 mg in 250 mls @ 250 mls/ hr IVPB DAILY [facility] Last Admin: 10/31/18 10:22 Dose: 250 mls/hr Ceftriaxone Sodium 1 gm/ (Dextrose) 50 mls @ 100 mls/hr IVPB DAILY [facility]; Protocol Last Admin: 10/31/18 10:22 Dose: 100 mls/hr Methylprednisolone Sodium Succinate (Solu-Medrol -) 40 mg IVPUSH Q8H-IV [facility] Last Admin: 10/31/18 10:23 Dose: 40 mg Metoprolol Succinate (Toprol Xl -) 100 mg PO BID [facility] Last Admin: 10/31/18 10:39 Dose: 100 mg Non-Formulary Medication (Benzonatate [Benzonatate]) 100 mg PO BID [facility] Last Admin: 10/31/18 10:53 Dose: Not Given Nystatin (Nystop Powder -) 1 applic TP DAILY [facility] Last Admin: 10/31/18 10:40 Dose: 1 applic Potassium Chloride (K-Dur -) 20 meq PO DAILY [facility] Last Admin: 10/31/18 10:38 Dose: 20 meq Spironolactone (Aldactone -) 25 mg PO DAILY [facility] Last Admin: 10/31/18 10:39 Dose: 25 mg PHYSICAL EXAMINATION: General: 87-year-old female who is alert in time and space. She was dyspneic.No pallor or cyanosis. No clubbing or jaundice. Last Vital Signs Temp Pulse Resp BP Pulse Ox 98 F 82 irregular 20 133/75 93 L 10/31/18 10:54 10/31/18 10:54 10/31/18 10:54 10/31/18 10:54 10/30/18 20:54 Neck: Supple, no JVD, negative HJR, carotids were 2+, no bruits were heard, no thyromegaly present. Heart: Distant heart sounds which are obscured by breath sounds. Unable to appreciate murmur or gallops. Lungs: Bilateral coarse breath sounds, bilateral expiratory wheezing and scattered crepitations. Abdomen: Soft, obese, nontender, no hepatosplenomegaly appreciated. Extremities: No calf tenderness or dependent edema. CBC, BMP 10/31/18 10:08 10/31/18 10:08 IMPRESSION: 1. Congestive heart failure. 2. Suspect bilateral pneumonia and asthmatic bronchitis. 3. Influenza needs exclusion. 4. Hypertension, hypertensive cardiovascular disease. 5. History of coronary artery disease, status post myocardial infarction post rightknee replacement. 6. Status post pulmonary thromboembolism. 6. Status post cerebrovascular accident without physical sequelae. 7. Hypercholesterolemia. 8. Permanent atrial fibrillation. 9. Exogenous obesity. 10. History of diverticulitis. 11. Pre-renal azotemia. 12. Mental confusion, etiology is most likely multifactoral. RECOMMENDATIONS: 1. Serology for influenza, family member is admitted with recent onset of flu. 2. May need to consider reducing dose of Lasix. 3. Continue cardiac medications. Prognosis: Guarded. Keagan Turner M.D., F.A.C.C.
[2018-10-31 11:34] LABS: ANISOCYTOSIS 1+; MACROCYTOSIS 0; PLATELET ESTIMATE NORMAL
--- NOTE | 2018-10-31 12:06 | PN ---
Progress Note (short form) - Note Progress Note: Remains confused. Arousable. Cough and breathing is less congested. Daughter at the bedside. Intake & Output 10/28/18 10/29/18 10/30/18 10/31/18 23:59 23:59 23:59 23:59 Intake Total 240 1025 880 100 Balance 240 1025 880 100 Weight 185 lb Last Vital Signs Temp Pulse Resp BP Pulse Ox 98 F 82 20 133/75 98 10/31/18 10:54 10/31/18 10:54 10/31/18 10:54 10/31/18 10:54 10/31/18 10:00 Active Medications Albuterol Sulfate (Ventolin 0.083% Nebulizer Soln -) 1 amp NEB Q4H PRN PRN Reason: SHORT OF BREATH/WHEEZING Last Admin: 10/29/18 05:36 Dose: 1 amp Albuterol/Ipratropium (Duoneb -) 1 amp NEB RQID [facility] Last Admin: 10/31/18 07:25 Dose: 1 amp Apixaban (Eliquis -) 5 mg PO BID [facility] Last Admin: 10/31/18 10:39 Dose: 5 mg Aspirin (Asa -) 81 mg PO DAILY [facility] Last Admin: 10/31/18 10:39 Dose: 81 mg Atorvastatin Calcium (Lipitor -) 10 mg PO HS [facility] Last Admin: 10/30/18 21:58 Dose: 10 mg Cyanocobalamin (Vitamin B12 -) 1,000 mcg PO DAILY [facility] Last Admin: 10/31/18 10:39 Dose: 1,000 mcg Diltiazem HCl (Cardizem Cd -) 180 mg PO DAILY [facility] Last Admin: 10/31/18 10:39 Dose: 180 mg Ergocalciferol (Drisdol -) 50,000 unit PO Q7D@1000 [facility] Ferrous Sulfate (Feosol -) 325 mg PO BID [facility] Last Admin: 10/31/18 10:39 Dose: 325 mg Furosemide (Lasix Injection -) 40 mg IVPUSH DAILY [facility] Last Admin: 10/31/18 10:23 Dose: 40 mg Guaifenesin (Mucinex -) 600 mg PO BID [facility] Last Admin: 10/31/18 10:39 Dose: 600 mg Azithromycin (Zithromax 500mg Ivpb (Pre-Docked)) 500 mg in 250 mls @ 250 mls/ hr IVPB DAILY [facility] Last Admin: 10/31/18 10:22 Dose: 250 mls/hr Ceftriaxone Sodium 1 gm/ (Dextrose) 50 mls @ 100 mls/hr IVPB DAILY [facility]; Protocol Last Admin: 10/31/18 10:22 Dose: 100 mls/hr Methylprednisolone Sodium Succinate (Solu-Medrol -) 40 mg IVPUSH Q8H-IV [facility] Last Admin: 10/31/18 10:23 Dose: 40 mg Metoprolol Succinate (Toprol Xl -) 100 mg PO BID [facility] Last Admin: 10/31/18 10:39 Dose: 100 mg Non-Formulary Medication (Benzonatate [Benzonatate]) 100 mg PO BID [facility] Last Admin: 10/31/18 10:53 Dose: Not Given Nystatin (Nystop Powder -) 1 applic TP DAILY [facility] Last Admin: 10/31/18 10:40 Dose: 1 applic Potassium Chloride (K-Dur -) 20 meq PO DAILY [facility] Last Admin: 10/31/18 10:38 Dose: 20 meq Spironolactone (Aldactone -) 25 mg PO DAILY [facility] Last Admin: 10/31/18 10:39 Dose: 25 mg Constitutional: Yes: Lethargic but arousbale, Confused, Mild tachypneic at rest Eyes: Yes: Conjunctiva Clear, EOM Intact HENT: Yes: Atraumatic, Normocephalic Neck: Yes: Supple, Trachea Midline Cardiovascular: Yes: Tachycardia, Pulse Irregular Respiratory: Yes: Cough, Expiratory wheeze, On Nasal O2, Rhonchi, SOB, Tachypnea. No: Stridor ...Inspection: Yes: WNL ...Clubbing: No Gastrointestinal: Yes: Normal Bowel Sounds, Soft Renal/: Yes: WNL Musculoskeletal: Yes: WNL Extremities: Yes: WNL Edema: No Peripheral Pulses WNL: Yes Integumentary: Yes: WNL Neurological: Yes: Alert, Oriented Psychiatric: Yes: Alert Labs: Laboratory Results - last 24 hr 10/31/18 10/31/18 10:08 10:08 WBC 13.1 H RBC 3.72 Hgb 9.7 L Hct 31.1 L MCV 83.5 MCH 26.1 MCHC 31.2 L RDW 18.8 H Plt Count 475 H MPV 7.1 L Absolute Neuts (auto) 12.4 H Neutrophils % 94.8 H Neutrophils % (Manual) 92.9 H Band Neutrophils % 0.0 Lymphocytes % 3.3 L D Lymphocytes % (Manual) 6.1 L Monocytes % 1.8 L Monocytes % (Manual) 1 L Eosinophils % 0.0 D Eosinophils % (Manual) 0.0 Basophils % 0.1 Basophils % (Manual) 0.0 Myelocytes % (Man) 0 Promyelocytes % (Man) 0 Blast Cells % (Manual) 0 Nucleated RBC % 0 Metamyelocytes 0 Hypochromia 0 Platelet Estimate Normal Polychromasia 0 Poikilocytosis 0 Anisocytosis 1+ Microcytosis 1+ Macrocytosis 0 Sodium 143 Potassium 3.8 Chloride 111 H Carbon Dioxide 27 Anion Gap 6 L BUN 58.0 H Creatinine 1.3 Est GFR (CKD-EPI)AfAm 43.02 Est GFR (CKD-EPI)NonAf 37.12 Random Glucose 200 H Calcium 10.1 Problem List - Problems (1) Acute respiratory failure with hypoxia Code(s): J96.01 - ACUTE RESPIRATORY FAILURE WITH HYPOXIA (2) Leukocytosis Code(s): D72.829 - ELEVATED WHITE BLOOD CELL COUNT, UNSPECIFIED (3) Pneumonia Code(s): J18.9 - PNEUMONIA, UNSPECIFIED ORGANISM (4) Atrial fibrillation Code(s): I48.91 - UNSPECIFIED ATRIAL FIBRILLATION (5) CVA (cerebral vascular accident) Code(s): I63.9 - CEREBRAL INFARCTION, UNSPECIFIED (6) Pulmonary embolism Code(s): I26.99 - OTHER PULMONARY EMBOLISM WITHOUT ACUTE COR PULMONALE Assessment/Plan NC O2 as tolerated NIPPV support as needed and if patient allows Aspiration precautions ABX: Zithromax/Rocephin Check sputum if patient allows BD TX PRN Decrease IV Medrol Dr Prieto Problem List - Problems (1) Acute respiratory failure with hypoxia Code(s): J96.01 - ACUTE RESPIRATORY FAILURE WITH HYPOXIA (2) Leukocytosis Code(s): D72.829 - ELEVATED WHITE BLOOD CELL COUNT, UNSPECIFIED (3) Pneumonia Code(s): J18.9 - PNEUMONIA, UNSPECIFIED ORGANISM (4) Atrial fibrillation Code(s): I48.91 - UNSPECIFIED ATRIAL FIBRILLATION (5) CVA (cerebral vascular accident) Code(s): I63.9 - CEREBRAL INFARCTION, UNSPECIFIED (6) Pulmonary embolism Code(s): I26.99 - OTHER PULMONARY EMBOLISM WITHOUT ACUTE COR PULMONALE
--- NOTE | 2018-10-31 14:44 | PN ---
Teaching Attending Note Name of Resident: Suyapa Rothman ATTENDING PHYSICIAN STATEMENT I saw and evaluated the patient. I reviewed the resident's note and discussed the case with the resident. I agree with the resident's findings and plan as documented. SUBJECTIVE:asymptomatic. denies Cp, SOB, fever, chills, N/V/C/D as per daughter at bedside has been agitated and believes shes having visual hallucinations as she seems to be talking to people not present. states this is typical behaviour when on steroids. states she seems less labored when breathing OBJECTIVE: Last Vital Signs Temp Pulse Resp BP Pulse Ox 98 F 82 20 133/75 98 10/31/18 10:54 10/31/18 10:54 10/31/18 10:54 10/31/18 10:54 10/31/18 10:00 General NAD, garbled speech CV S1 s2 RRR No murmur/rub/gallop Lungs scattered expiratory wheezing Extremities trace pitting edema ASSESSMENT AND PLAN: 87 year old woman with a history of HTN, hyperlipidemia, CAD, KS, PE, atrial fibrillation, CVA with dysarthria and expressive dysphasia who presented to the ED with hypoxia, SOB, cough, fever and found to have acute hypoxic respiratory failure due to PNA and diastolic CHF exacerbation 1. Acute hypoxic respiratory failure secondary to bilateral pneumonia and acute diastolic heart failure- clinically improved. currently 97% on 2L NC. cont ceftriaxone/azithromycin day 4. cont lasix 40mg IV daily. as per daughter can not stand for weight. try bed scale to monitor weight status. titrate down supplemental oxygen as tolerated 2. Acute COPD exacerbation- clinically improved. titrate down steroids to BID dosing. nebs RTC and PRN. pulmonary on board 3. Acute paranoia- likely induced from the steroids as had previous encounters with similar side effects. will monitor for improvement as steroids titrated 4. hypokalemia- Kcl. check mg 5. afib iwth RVR- now rate controlled. cont current treatment. on eliquis 6. CAD, history of KS- Continue aspirin, Toprol XL, Lipitor 7. Hyperlipidemia- Continue Lipitor 8. HTN- Continue Toprol XL, Cardizem CD, Aldactone, Lasix 9. History of PE after orthopedic surgery 10. Anemia secondary to iron deficiency, B12 deficiency- Continue ferrous sulfate, B12 supplementation 11. RUL ground glass lung opacity- Incidental finding on CT - needs repeat imaging in 3 months 12. Dysarthria and expressive dysphasia secondary to old CVA- Continue aspirin, Lipitor, Eliquis 13. DVT ppx- eliquis 14. PT eval. daughter prefers for her to come home when medically optimized. agreeable to assessment with PT. has been bedbound since last CVA but has home PT
[2018-10-31] MEDS ORDERED: PT OWN MED DRAWER 7, Y5N ONE (20:46)
[2018-10-31] MEDS: ATORVASTATIN CA 10 MG TABLET (FP) PO SCH (21:27)
[2018-11-01] MEDS: ALBUTEROL SO4 0.083% IH SOL 2.5 MG/3 ML VIAL.NEB. NEB PRN (04:03)
[2018-11-01 07:28] LABS: HEMATOCRIT 31.4 % (32.4-45.2); HEMOGLOBIN 9.9 GM/dL (10.7-15.3); MCH 26.6 pg (25.7-33.7); MCHC 31.5 g/dl (32.0-36.0); MEAN CELL VOLUME 84.4 fl (80-96); MEAN PLT VOLUME 7.2 fl (7.5-11.1); PLATELET COUNT 515 K/MM3 (134-434); RBC 3.72 M/mm3 (3.60-5.2); RDW 19.1 % (11.6-15.6); WHITE BLOOD COUNT 14.3 K/mm3 (4.0-10.0)
[2018-11-01 07:57] LABS: ALBUMIN 2.6 g/dl (3.4-5.0); BILIRUBIN,TOTAL 0.4 mg/dL (0.2-1); BLOOD UREA NITROGEN 59.6 mg/dL (7-18); CALCIUM 10.2 mg/dL (8.5-10.1); CREATININE 1.4 mg/dL (0.55-1.3); TOT PROT 7.1 g/dl (6.4-8.2)
[2018-11-01] MEDS: ALBUTEROL SO4 2.5/IPRATROPIUM 0.5 INH SOL 3 ML VIAL.NEB. NEB SCH ×4 (08:19→20:18)
[2018-11-01] MEDS ORDERED: cefTRIAXone SODIUM 1 GM VIAL ONE (10:13)
[2018-11-01] MEDS ORDERED: DEXTROSE 5%-WATER - 50 ML IVPB ONE (10:14)
[2018-11-01] MEDS: PATIENT'S OWN MEDICATION (NON-FORMULARY) (Benzonatate [Benzonatate] 100 MG) PO SCH ×2 (10:15→22:35)
[2018-11-01] MEDS: AZITHROMYCIN IVPB 500 MG/250 ML BAG IVPB SCH (10:35)
[2018-11-01] MEDS: CEFTRIAXONE 1 GM in DEXTROSE 5%-WATER - 50 ML IVPB SCH (10:36)
[2018-11-01] MEDS: methylPREDNISolone NA SUCC 40 MG/1 ML VIAL IVPUSH SCH (10:37)
[2018-11-01] MEDS: POTASSIUM CHLORIDE TABS 20 MEQ TABLET.ER (FP) PO SCH (10:44)
[2018-11-01] MEDS: guaiFENesin 600 MG TABLET.ER (FP) PO SCH ×2 (10:44→22:34)
[2018-11-01] MEDS: FERROUS SO4 325 MG TABLET (FP) PO SCH ×2 (10:44→22:34)
[2018-11-01] MEDS: CYANOCOBALAMIN 1,000 MCG TABLET (FP) PO SCH (10:44)
[2018-11-01] MEDS: ASPIRIN 81 MG CHEWABLE TABLETS PO SCH (10:44)
[2018-11-01] MEDS: SPIRONOLACTONE 25 MG TABLET (FP) PO SCH (10:44)
[2018-11-01] MEDS: APIXABAN 5 MG TABLET PO SCH ×2 (10:45→22:34)
[2018-11-01] MEDS: NYSTATIN POWDER 100,000 UNITS/GM - 15 GM TOPICAL POWDER TP SCH (10:45)
[2018-11-01] MEDS: FUROSEMIDE 40 MG/4 ML INJECTABLE VIAL IVPUSH SCH (11:58)
--- NOTE | 2018-11-01 11:59 | PN ---
Progress Note (short form) - Note Progress Note: 87-year-old female with longstanding history of permanent atrialfibrillation, hypertension, hypertensive cardiovascular disease, hypercholesterolemia, history of myocardial infarction following a knee replacementfurther complicated by pulmonary thromboembolism and atrial fibrillation. Patient is lethargic but arousible. There is no respiratory distress. According to her daughter, she has had no shortness of breath, no chest pains reported, and she stated that patient is more arousible than the day before. Serology for influenza A and B was negative. Active Medications Albuterol Sulfate (Ventolin 0.083% Nebulizer Soln -) 1 amp NEB Q4H PRN PRN Reason: SHORT OF BREATH/WHEEZING Last Admin: 11/01/18 04:03 Dose: 1 amp Albuterol/Ipratropium (Duoneb -) 1 amp NEB RQID [facility] Last Admin: 11/01/18 11:43 Dose: 1 amp Apixaban (Eliquis -) 5 mg PO BID [facility] Last Admin: 11/01/18 10:45 Dose: 5 mg Aspirin (Asa -) 81 mg PO DAILY [facility] Last Admin: 11/01/18 10:44 Dose: 81 mg Atorvastatin Calcium (Lipitor -) 10 mg PO HS [facility] Last Admin: 10/31/18 21:27 Dose: 10 mg Cyanocobalamin (Vitamin B12 -) 1,000 mcg PO DAILY [facility] Last Admin: 11/01/18 10:44 Dose: 1,000 mcg Diltiazem HCl (Cardizem Cd -) 180 mg PO DAILY [facility] Last Admin: 11/01/18 10:44 Dose: 180 mg Ergocalciferol (Drisdol -) 50,000 unit PO Q7D@1000 [facility] Ferrous Sulfate (Feosol -) 325 mg PO BID [facility] Last Admin: 11/01/18 10:44 Dose: 325 mg Furosemide (Lasix -) 40 mg PO DAILY [facility] Guaifenesin (Mucinex -) 600 mg PO BID [facility] Last Admin: 11/01/18 10:44 Dose: 600 mg Ceftriaxone Sodium 1 gm/ (Dextrose) 50 mls @ 100 mls/hr IVPB DAILY [facility]; Protocol Last Admin: 11/01/18 10:36 Dose: 100 mls/hr Methylprednisolone Sodium Succinate (Solu-Medrol -) 40 mg IVPUSH BID [facility] Last Admin: 11/01/18 10:37 Dose: 40 mg Metoprolol Succinate (Toprol Xl -) 100 mg PO BID [facility] Last Admin: 11/01/18 10:44 Dose: 100 mg Non-Formulary Medication (Benzonatate [Benzonatate]) 100 mg PO BID [facility] Last Admin: 11/01/18 10:15 Dose: Not Given Nystatin (Nystop Powder -) 1 applic TP DAILY [facility] Last Admin: 11/01/18 10:45 Dose: 1 applic Potassium Chloride (K-Dur -) 20 meq PO DAILY [facility] Last Admin: 11/01/18 10:44 Dose: 20 meq Spironolactone (Aldactone -) 25 mg PO DAILY [facility] Last Admin: 11/01/18 10:44 Dose: 25 mg PHYSICAL EXAMINATION: General: 87-year-old female who is lethargic but arousible. No pallor or cyanosis. No clubbing or jaundice. Last Vital Signs Temp Pulse Resp BP Pulse Ox 99 F 76 20 125/44 L 99 11/01/18 11:00 11/01/18 11:00 11/01/18 11:00 11/01/18 11:00 11/01/18 08:17 Neck: Supple, no JVD, negative HJR, carotids were 2+, no bruits were heard, no thyromegaly present. Heart: Distant heart sounds which are obscured by breath sounds. Unable to appreciate murmur or gallops. Lungs: Bilateral coarse breath sounds, bilateral expiratory wheezing and scattered crepitations. Abdomen: Soft, obese, nontender, no hepatosplenomegaly appreciated. Extremities: No calf tenderness, 1+ left pre-tibial edema. Laboratory Results - last 24 hr 10/31/18 11/01/18 11/01/18 11:00 06:40 06:40 WBC 14.3 H RBC 3.72 Hgb 9.9 L Hct 31.4 L MCV 84.4 MCH 26.6 MCHC 31.5 L RDW 19.1 H Plt Count 515 H MPV 7.2 L Sodium 143 Potassium 4.0 Chloride 112 H Carbon Dioxide 27 Anion Gap 5 L BUN 59.6 H Creatinine 1.4 H Est GFR (CKD-EPI)AfAm 39.33 Est GFR (CKD-EPI)NonAf 33.94 Random Glucose 173 H Calcium 10.2 H Total Bilirubin 0.4 AST 59 H ALT 63 H Alkaline Phosphatase 85 Total Protein 7.1 Albumin 2.6 L Influenza A (Rapid) Negative Influenza B (Rapid) Negative IMPRESSION: 1. Congestive heart failure, resolving. 2. Bilateral pneumonia. 3. Asthmatic bronchitis. 4. Hypertension, hypertensive cardiovascular disease. 5. History of coronary artery disease, status post myocardial infarction post rightknee replacement. 6. Status post pulmonary thromboembolism. 6. Status post cerebrovascular accident without physical sequelae. 7. Hypercholesterolemia. 8. Permanent atrial fibrillation. 9. Exogenous obesity. 10. History of diverticulitis. 11. Acute renal insufficiency. 12. Mental confusion, etiology is most likely multifactoral. RECOMMENDATIONS: 1. Continue medications as outlined. 2. Avoid tranquilizers or sedatives. 3. Follow up BMP and CBC. Prognosis: Guarded. Keagan Turner M.D., F.A.C.C.
--- NOTE | 2018-11-01 12:08 | PN ---
Teaching Attending Note Name of Resident: Suyapa Rothman ATTENDING PHYSICIAN STATEMENT I saw and evaluated the patient. I reviewed the resident's note and discussed the case with the resident. I agree with the resident's findings and plan as documented. SUBJECTIVE:breathing improved. denies Cp, SOB, fever, chills, cough, N/v/C/D OBJECTIVE: Last Vital Signs Temp Pulse Resp BP Pulse Ox 99 F 76 20 125/44 L 99 11/01/18 11:00 11/01/18 11:00 11/01/18 11:00 11/01/18 11:00 11/01/18 08:17 General NAD, CV S1 s2 RRR No murmur/rub/gallop Lungs scattered expiratory wheezing Extremities trace pitting edema ASSESSMENT AND PLAN: 87 year old woman with a history of HTN, hyperlipidemia, CAD, UT, PE, atrial fibrillation, CVA with dysarthria and expressive dysphasia who presented to the ED with hypoxia, SOB, cough, fever and found to have acute hypoxic respiratory failure due to PNA and diastolic CHF exacerbation 1. Acute hypoxic respiratory failure secondary to bilateral pneumonia and acute diastolic heart failure- clinically improved. currently 97% on 2L NC. cont ceftriaxone/azithromycin day 6. will d/c azithromycin. will switch lasix to po. as per daughter can not stand for weight. try bed scale to monitor weight status. titrate down supplemental oxygen as tolerated 2. Acute COPD exacerbation- clinically improved. cont current dosing at this time. nebs RTC and PRN. pulmonary on board. evaluate if needs supplemental oxygnen prior to discharge. 3. Acute paranoia- likely induced from the steroids as had previous encounters with similar side effects. will monitor for improvement as steroids titrated 4. hypokalemia- resolved 5. afib iwth RVR- now rate controlled. cont current treatment. on eliquis 6. CAD, history of UT- Continue aspirin, Toprol XL, Lipitor 7. Hyperlipidemia- Continue Lipitor 8. HTN- Continue Toprol XL, Cardizem CD, Aldactone, Lasix 9. History of PE after orthopedic surgery 10. Anemia secondary to iron deficiency, B12 deficiency- Continue ferrous sulfate, B12 supplementation 11. RUL ground glass lung opacity- Incidental finding on CT - needs repeat imaging in 3 months 12. Dysarthria and expressive dysphasia secondary to old CVA- Continue aspirin, Lipitor, Eliquis 13. DVT ppx- eliquis 14. PT eval. daughter prefers for her to come home when medically optimized. agreeable to assessment with PT. has been bedbound since last CVA but has home PT
--- NOTE | 2018-11-01 12:27 | PN ---
Physical Exam: SUBJECTIVE: Patient seen and still lethargic. patient denies any pain. Patient up and fighting all night overnight. OBJECTIVE: Vital Signs Temperature 99 F 11/01/18 11:00 Pulse Rate 76 11/01/18 11:00 Respiratory Rate 20 11/01/18 11:00 Blood Pressure 125/44 L 11/01/18 11:00 O2 Sat by Pulse Oximetry (%) 99 11/01/18 08:17 GENERAL: The patient is awake, alert HEAD: Normal with no signs of trauma. EYES: PERRL, extraocular movements intact, LUNGS: mild diffuse wheezing, less acessory muscle use HEART: Regular rate and rhythm, S1, S2 without murmur, rub or gallop. ABDOMEN: Soft, nontender, nondistended, normoactive bowel sounds, EXTREMITIES: 2+ pulses, warm, well-perfused, no edema. SKIN: Warm, dry, normal turgor, no rashes or lesions noted CBC, BMP 11/01/18 06:40 11/01/18 06:40 Active Medications Albuterol Sulfate (Ventolin 0.083% Nebulizer Soln -) 1 amp NEB Q4H PRN PRN Reason: SHORT OF BREATH/WHEEZING Last Admin: 11/01/18 04:03 Dose: 1 amp Albuterol/Ipratropium (Duoneb -) 1 amp NEB RQID [facility] Last Admin: 11/01/18 11:43 Dose: 1 amp Apixaban (Eliquis -) 5 mg PO BID [facility] Last Admin: 11/01/18 10:45 Dose: 5 mg Aspirin (Asa -) 81 mg PO DAILY [facility] Last Admin: 11/01/18 10:44 Dose: 81 mg Atorvastatin Calcium (Lipitor -) 10 mg PO HS [facility] Last Admin: 10/31/18 21:27 Dose: 10 mg Cyanocobalamin (Vitamin B12 -) 1,000 mcg PO DAILY [facility] Last Admin: 11/01/18 10:44 Dose: 1,000 mcg Diltiazem HCl (Cardizem Cd -) 180 mg PO DAILY [facility] Last Admin: 11/01/18 10:44 Dose: 180 mg Ergocalciferol (Drisdol -) 50,000 unit PO Q7D@1000 [facility] Ferrous Sulfate (Feosol -) 325 mg PO BID [facility] Last Admin: 06/25/19 10:44 Dose: 325 mg Furosemide (Lasix -) 40 mg PO DAILY [facility] Guaifenesin (Mucinex -) 600 mg PO BID [facility] Last Admin: 11/01/18 10:44 Dose: 600 mg Ceftriaxone Sodium 1 gm/ (Dextrose) 50 mls @ 100 mls/hr IVPB DAILY [facility]; Protocol Last Admin: 11/01/18 10:36 Dose: 100 mls/hr Methylprednisolone Sodium Succinate (Solu-Medrol -) 40 mg IVPUSH BID [facility] Last Admin: 11/01/18 10:37 Dose: 40 mg Metoprolol Succinate (Toprol Xl -) 100 mg PO BID [facility] Last Admin: 11/01/18 10:44 Dose: 100 mg Non-Formulary Medication (Benzonatate [Benzonatate]) 100 mg PO BID [facility] Last Admin: 11/01/18 10:15 Dose: Not Given Nystatin (Nystop Powder -) 1 applic TP DAILY [facility] Last Admin: 11/01/18 10:45 Dose: 1 applic Potassium Chloride (K-Dur -) 20 meq PO DAILY [facility] Last Admin: 11/01/18 10:44 Dose: 20 meq Spironolactone (Aldactone -) 25 mg PO DAILY [facility] Last Admin: 11/01/18 10:44 Dose: 25 mg ASSESSMENT/PLAN: Patient is a 89 y/o female with a past medical history of HTN, HLD, [place] (2007), CVA, afib ( on eliquis) and provoked PE who is admitted for PNA. #Acute hypoxic respiratory failure 2/2 to Pneumonia - Chest CT: bibasilar infiltrates L>R, 1.4 UL ground glass opacity, main pulmonary artery dilated suggesting increased pulm arterial pressure - will need f/u CT in 3 months for UL mass - keep saturation above 90%, NC as needed - solumedrol 40 BID today, will continue steroids and continue to decrease as indicated - continue Ceftriaxone (day 6) - nebs standing and prn - incentive spirometer q1h - ABG shows CO2 retention, will put back on BIPAP, steroids decreased as per pulm #acute diastolic CHF with pulmonary HTN - ECHO:LV sys function grossly normal, left atrium mildly dilated, mild tricuspid regurg, mild pulmonic valvular regurg, PLM HTN 50-60 - continue lasix po 40 daily #hx CVA - continue atorvastatin, bb, and aspirin #afib - continue eliquis 5 BID - spironolactone 25 daily - continue diltiazem #anemia 2/2 to iron deficiency - continue ferrous sulfate - low FE from last visit, ferrous sulfate 325 BID - INR resolving #HTN - continue diltiazem - torpol 100 BID #DVT ppx - on eliquis FEN - sodium controlled diet - f/u with PT Dispo: continue to monitor, will taper down steroids as indicated - family requesting neuro, AMS likely 2/2 to concurrent steroids and CO2 retention, will revisit consulting neuro once patient clinically improves Visit type - Emergency Visit Emergency Visit: No - New Patient This patient is new to me today: No - Critical Care Critical Care patient: No
[2018-11-01] MEDS: FUROSEMIDE 40 MG TABLET (FP) PO SCH (13:33)
--- NOTE | 2018-11-01 15:24 | PN ---
Progress Note, Physician History of Present Illness: PULMONARY LETHARGIC,CONFUSED,LESS DYSPNEIC - Current Medication List Current Medications: Active Medications Albuterol Sulfate (Ventolin 0.083% Nebulizer Soln -) 1 amp NEB Q4H PRN PRN Reason: SHORT OF BREATH/WHEEZING Last Admin: 11/01/18 04:03 Dose: 1 amp Albuterol/Ipratropium (Duoneb -) 1 amp NEB RQID [facility] Last Admin: 11/01/18 11:43 Dose: 1 amp Apixaban (Eliquis -) 5 mg PO BID [facility] Last Admin: 11/01/18 10:45 Dose: 5 mg Aspirin (Asa -) 81 mg PO DAILY [facility] Last Admin: 11/01/18 10:44 Dose: 81 mg Atorvastatin Calcium (Lipitor -) 10 mg PO HS [facility] Last Admin: 10/31/18 21:27 Dose: 10 mg Cyanocobalamin (Vitamin B12 -) 1,000 mcg PO DAILY [facility] Last Admin: 11/01/18 10:44 Dose: 1,000 mcg Diltiazem HCl (Cardizem Cd -) 180 mg PO DAILY [facility] Last Admin: 11/01/18 10:44 Dose: 180 mg Ergocalciferol (Drisdol -) 50,000 unit PO Q7D@1000 [facility] Ferrous Sulfate (Feosol -) 325 mg PO BID [facility] Last Admin: 11/01/18 10:44 Dose: 325 mg Furosemide (Lasix -) 40 mg PO DAILY [facility] Last Admin: 11/01/18 13:33 Dose: 40 mg Guaifenesin (Mucinex -) 600 mg PO BID [facility] Last Admin: 11/01/18 10:44 Dose: 600 mg Ceftriaxone Sodium 1 gm/ (Dextrose) 50 mls @ 100 mls/hr IVPB DAILY [facility]; Protocol Last Admin: 11/01/18 10:36 Dose: 100 mls/hr Methylprednisolone Sodium Succinate (Solu-Medrol -) 40 mg IVPUSH BID [facility] Last Admin: 11/01/18 10:37 Dose: 40 mg Metoprolol Succinate (Toprol Xl -) 100 mg PO BID [facility] Last Admin: 11/01/18 10:44 Dose: 100 mg Non-Formulary Medication (Benzonatate [Benzonatate]) 100 mg PO BID [facility] Last Admin: 11/01/18 10:15 Dose: Not Given Nystatin (Nystop Powder -) 1 applic TP DAILY [facility] Last Admin: 11/01/18 10:45 Dose: 1 applic Potassium Chloride (K-Dur -) 20 meq PO DAILY [facility] Last Admin: 11/01/18 10:44 Dose: 20 meq Spironolactone (Aldactone -) 25 mg PO DAILY [facility] Last Admin: 11/01/18 10:44 Dose: 25 mg - Objective Vital Signs: Vital Signs Temperature 98.4 F 11/01/18 14:39 Pulse Rate 76 11/01/18 14:39 Respiratory Rate 20 11/01/18 14:39 Blood Pressure 110/43 L 11/01/18 14:39 O2 Sat by Pulse Oximetry (%) 99 11/01/18 08:17 Constitutional: Yes: Well Nourished, Other (LETHARGIC) Eyes: Yes: WNL HENT: Yes: WNL Neck: Yes: WNL Cardiovascular: Yes: Pulse Irregular, S1, S2 Respiratory: Yes: Wheezes (FEW SCATTERED WHEEZES) Gastrointestinal: Yes: Normal Bowel Sounds, Soft Extremities: Yes: WNL Edema: No Labs: CBC, BMP 11/01/18 06:40 11/01/18 06:40 INR, PTT INR 1.88 (0.83-1.09) H 10/30/18 07:00 Fibrinogen 408.0 mg/dL (238-498) 10/30/18 07:00 Assessment/Plan Problem List - Problems (1) Acute respiratory failure with hypoxia Code(s): J96.01 - ACUTE RESPIRATORY FAILURE WITH HYPOXIA (2) Leukocytosis Code(s): D72.829 - ELEVATED WHITE BLOOD CELL COUNT, UNSPECIFIED (3) Pneumonia Code(s): J18.9 - PNEUMONIA, UNSPECIFIED ORGANISM (4) Atrial fibrillation Code(s): I48.91 - UNSPECIFIED ATRIAL FIBRILLATION (5) CVA (cerebral vascular accident) Code(s): I63.9 - CEREBRAL INFARCTION, UNSPECIFIED (6) Pulmonary embolism Code(s): I26.99 - OTHER PULMONARY EMBOLISM WITHOUT ACUTE COR PULMONALE Assessment/Plan NC O2 as tolerated NIPPV support as needed abg Aspiration precautions Zithromax/Rocephin Check sputum if patient allows BD TX PRN Decrease IV Medrol avoid sedation f/u chest x-ray DR CABRAL
[2018-11-01 15:27] LABS: ARTERIAL BLD GAS O2 SATURATION 96.5 % (95-98); ARTERIAL BLOOD GAS BASE EXCESS -1.7 meq/l (-2-2); ARTERIAL BLOOD GAS PCO2 54.3 mmHg (35-45); ARTERIAL BLOOD GAS PO2 98.3 mmHg (80-105); ARTERIAL BLOOD GAS pH 7.28 (7.35-7.45)
[2018-11-01 15:28] LABS: ALLENS TEST POSITIVE
[2018-11-01] MEDS: ATORVASTATIN CA 10 MG TABLET (FP) PO SCH (22:34)
[2018-11-02 07:16] LABS: ARTERIAL BLD GAS O2 SATURATION 93.2 % (95-98); ARTERIAL BLOOD GAS PCO2 50.3 mmHg (35-45); ARTERIAL BLOOD GAS PO2 72.1 mmHg (80-105); ARTERIAL BLOOD GAS pH 7.34 (7.35-7.45)
[2018-11-02 07:24] LABS: ALLENS TEST POSITIVE
[2018-11-02 07:50] LABS: ALBUMIN 2.6 g/dl (3.4-5.0); BILIRUBIN,TOTAL 0.3 mg/dL (0.2-1); BLOOD UREA NITROGEN 56.8 mg/dL (7-18); CALCIUM 9.9 mg/dL (8.5-10.1); CREATININE 1.2 mg/dL (0.55-1.3); POTASSIUM 4.2 mmol/L (3.5-5.1); TOT PROT 6.5 g/dl (6.4-8.2)
[2018-11-02] MEDS: ALBUTEROL SO4 2.5/IPRATROPIUM 0.5 INH SOL 3 ML VIAL.NEB. NEB SCH ×4 (08:00→20:23)
[2018-11-02 08:19] LABS: HEMATOCRIT 30.3 % (32.4-45.2); HEMOGLOBIN 9.5 GM/dL (10.7-15.3); MCH 26.4 pg (25.7-33.7); MCHC 31.3 g/dl (32.0-36.0); MEAN CELL VOLUME 84.5 fl (80-96); MEAN PLT VOLUME 7.4 fl (7.5-11.1); PLATELET COUNT 477 K/MM3 (134-434); RBC 3.59 M/mm3 (3.60-5.2); RDW 19.3 % (11.6-15.6); WHITE BLOOD COUNT 12.5 K/mm3 (4.0-10.0)
[2018-11-02] MEDS ORDERED: methylPREDNISolone NA SUCC 40 MG/1 ML VIAL IVPUSH SCH (10:00)
[2018-11-02] MEDS ORDERED: cefTRIAXone SODIUM 1 GM VIAL ONE (10:16)
[2018-11-02] MEDS ORDERED: DEXTROSE 5%-WATER - 50 ML IVPB ONE (10:16)
[2018-11-02] MEDS: PATIENT'S OWN MEDICATION (NON-FORMULARY) (Benzonatate [Benzonatate] 100 MG) PO SCH ×2 (10:17→21:19)
[2018-11-02] MEDS: guaiFENesin 600 MG TABLET.ER (FP) PO SCH ×2 (10:18→21:18)
[2018-11-02] MEDS: APIXABAN 5 MG TABLET PO SCH ×2 (10:18→21:18)
[2018-11-02] MEDS: FUROSEMIDE 40 MG TABLET (FP) PO SCH (10:18)
[2018-11-02] MEDS: FERROUS SO4 325 MG TABLET (FP) PO SCH ×2 (10:18→21:18)
[2018-11-02] MEDS: ASPIRIN 81 MG CHEWABLE TABLETS PO SCH (10:19)
[2018-11-02] MEDS: CYANOCOBALAMIN 1,000 MCG TABLET (FP) PO SCH (10:19)
[2018-11-02] MEDS: SPIRONOLACTONE 25 MG TABLET (FP) PO SCH (10:19)
[2018-11-02] MEDS: POTASSIUM CHLORIDE TABS 20 MEQ TABLET.ER (FP) PO SCH (10:19)
[2018-11-02] MEDS: CEFTRIAXONE 1 GM in DEXTROSE 5%-WATER - 50 ML IVPB SCH (10:19)
--- NOTE | 2018-11-02 10:21 | PN ---
Teaching Attending Note Name of Resident: Suyapa Rothman ATTENDING PHYSICIAN STATEMENT I saw and evaluated the patient. I reviewed the resident's note and discussed the case with the resident. I agree with the resident's findings and plan as documented. SUBJECTIVE:lethargic but easily arrousable. states breathing has improved. denies Cp, SOB, fever, chills, N/V/C/D was noted to be more lethargic yesterday evening and ABG was done showing hypercapnia and bipap was placed for a few hours with improvement. OBJECTIVE: Last Vital Signs Temp Pulse Resp BP Pulse Ox 98.1 F 71 20 121/50 L 94 L 11/02/18 06:54 11/02/18 06:54 11/02/18 06:54 11/02/18 06:54 11/02/18 08:00 General NAD, lethargic but easily arrousable CV S1 s2 RRR No murmur/rub/gallop Lungs CTA B/L no wheezing/rales/rhonchi. good expansion Extremities no pitting edema ASSESSMENT AND PLAN: 87 year old woman with a history of HTN, hyperlipidemia, CAD, [place], PE, atrial fibrillation, CVA with dysarthria and expressive dysphasia who presented to the ED with hypoxia, SOB, cough, fever and found to have acute hypoxic respiratory failure due to PNA and diastolic CHF exacerbation 1. Acute hypoxic hypercapnic respiratory failure secondary to bilateral pneumonia and acute diastolic heart failure- is lethargic this AM. repeat ABG done showing persistent hypercapnia. pt reluctant to placing bipap on. encouraged son to also encouarge use. will re-assess and see if there is clinically improvement. repeat ABG. cont on ceftriaxone day 7. lasix po. titrate down supplemental oxygen as tolerated 2. Acute COPD exacerbation- clinically improved. no wheezing on exam. will switch to prednisone 40mg po. nebs RTC and PRN. pulmonary on board. evaluate if needs supplemental oxygnen prior to discharge. 3. Acute metabolic encephalopathy- likely combination of steroids, hypercapnia and ativan given. as per son was improved in the evening after bipap placed. now falls asleep easily. will encourage bipap use and monitor closely. recent TSH/Vit b12 noted 4. hypokalemia- resolved 5. afib with RVR- now rate controlled. cont current treatment. on eliquis 6. CAD, history of HI- Continue aspirin, Toprol XL, Lipitor 7. Hyperlipidemia- Continue Lipitor 8. HTN- Continue Toprol XL, Cardizem CD, Aldactone, Lasix 9. History of PE after orthopedic surgery 10. Anemia secondary to iron deficiency, B12 deficiency- Continue ferrous sulfate, B12 supplementation 11. RUL ground glass lung opacity- Incidental finding on CT - needs repeat imaging in 3 months 12. Dysarthria and expressive dysphasia secondary to old CVA- Continue aspirin, Lipitor, Eliquis 13. DVT ppx- eliquis 14. spoke with son present at bedside. aware of plan and agreed
[2018-11-02] MEDS: NYSTATIN POWDER 100,000 UNITS/GM - 15 GM TOPICAL POWDER TP SCH (10:37)
--- NOTE | 2018-11-02 10:40 | PN ---
Physical Exam: SUBJECTIVE: Patient seen this morning and lethargic. Patient refused bipap overnight. OBJECTIVE: Vital Signs Temperature 98.1 F 11/02/18 06:54 Pulse Rate 71 11/02/18 06:54 Respiratory Rate 20 11/02/18 06:54 Blood Pressure 121/50 L 11/02/18 06:54 O2 Sat by Pulse Oximetry (%) 94 L 11/02/18 08:00 GENERAL: The patient is lethargic but arousable HEAD: Normal with no signs of trauma. EYES: PERRL, extraocular movements intact, LUNGS: lungs clear to auscultation, no accessory muscle use, no wheezing heard HEART: Regular rate and rhythm, S1, S2 without murmur, rub or gallop. ABDOMEN: Soft, nontender, nondistended, normoactive bowel sounds, EXTREMITIES: 2+ pulses, warm, well-perfused, no edema. SKIN: Warm, dry, normal turgor, no rashes or lesions noted CBC, BMP 11/02/18 06:10 11/02/18 06:10 Active Medications Albuterol Sulfate (Ventolin 0.083% Nebulizer Soln -) 1 amp NEB Q4H PRN PRN Reason: SHORT OF BREATH/WHEEZING Last Admin: 11/01/18 04:03 Dose: 1 amp Albuterol/Ipratropium (Duoneb -) 1 amp NEB RQID [facility] Last Admin: 11/02/18 08:00 Dose: 1 amp Apixaban (Eliquis -) 5 mg PO BID [facility] Last Admin: 11/01/18 22:34 Dose: 5 mg Aspirin (Asa -) 81 mg PO DAILY [facility] Last Admin: 11/01/18 10:44 Dose: 81 mg Atorvastatin Calcium (Lipitor -) 10 mg PO HS [facility] Last Admin: 11/01/18 22:34 Dose: 10 mg Cyanocobalamin (Vitamin B12 -) 1,000 mcg PO DAILY [facility] Last Admin: 11/01/18 10:44 Dose: 1,000 mcg Diltiazem HCl (Cardizem Cd -) 180 mg PO DAILY [facility] Last Admin: 11/01/18 10:44 Dose: 180 mg Ergocalciferol (Drisdol -) 50,000 unit PO Q7D@1000 [facility] Ferrous Sulfate (Feosol -) 325 mg PO BID [facility] Last Admin: 11/01/18 22:34 Dose: 325 mg Furosemide (Lasix -) 40 mg PO DAILY [facility] Last Admin: 11/01/18 13:33 Dose: 40 mg Guaifenesin (Mucinex -) 600 mg PO BID [facility] Last Admin: 11/01/18 22:34 Dose: 600 mg Ceftriaxone Sodium 1 gm/ (Dextrose) 50 mls @ 100 mls/hr IVPB DAILY [facility]; Protocol Last Admin: 11/01/18 10:36 Dose: 100 mls/hr Metoprolol Succinate (Toprol Xl -) 100 mg PO BID [facility] Last Admin: 11/01/18 22:34 Dose: 100 mg Non-Formulary Medication (Benzonatate [Benzonatate]) 100 mg PO BID [facility] Last Admin: 11/01/18 22:35 Dose: Not Given Nystatin (Nystop Powder -) 1 applic TP DAILY [facility] Last Admin: 11/01/18 10:45 Dose: 1 applic Potassium Chloride (K-Dur -) 20 meq PO DAILY [facility] Last Admin: 11/01/18 10:44 Dose: 20 meq Prednisone (Deltasone -) 40 mg PO DAILY [facility] Spironolactone (Aldactone -) 25 mg PO DAILY [facility] Last Admin: 11/01/18 10:44 Dose: 25 mg ASSESSMENT/PLAN: Patient is a 89 y/o female with a past medical history of HTN, HLD, [place] (2007), CVA, afib ( on eliquis) and provoked PE who is admitted for PNA. #Acute hypoxic respiratory failure 2/2 to Pneumonia - Chest CT: bibasilar infiltrates L>R, 1.4 UL ground glass opacity, main pulmonary artery dilated suggesting increased pulm arterial pressure - will need f/u CT in 3 months for UL mass - keep saturation above 90%, NC as needed, Patient should be on Bipap - prednisone 40 po dialy - continue Ceftriaxone (day 7) - nebs standing and prn - incentive spirometer q1h - ABG and repeat shows CO2 retention, repeat ABG in the afternoon #acute diastolic CHF with pulmonary HTN - ECHO:LV sys function grossly normal, left atrium mildly dilated, mild tricuspid regurg, mild pulmonic valvular regurg, PLM HTN 50-60 - continue lasix po 40 daily, continue aldactone, BB, #acute metabolic encephalopathy - combination of hypercapneia and steroids - consulted family on importance of bipap use, patient resistant - will continue to monitor #hx CVA - continue atorvastatin, bb, and aspirin #afib - continue eliquis 5 BID - spironolactone 25 daily - continue diltiazem #anemia 2/2 to iron deficiency - continue ferrous sulfate - low FE from last visit, ferrous sulfate 325 BID - INR resolving #HTN - continue diltiazem - torpol 100 BID #DVT ppx - on eliquis FEN - sodium controlled diet - per PT patient would benefit from rehab, patients family prefers her to go home - hypokalemia resolved, continue Kdur Dispo: continue to monitor, once AMS improves will plan DC, very important for patient to use Bipap, DC of cardiac monitoring and can go to med/surg Visit type - Emergency Visit Emergency Visit: No - New Patient This patient is new to me today: No - Critical Care Critical Care patient: No
[2018-11-02] MEDS: predniSONE 20 MG TABLET (UD) PO SCH (12:02)
--- NOTE | 2018-11-02 13:27 | PN ---
Progress Note, Physician History of Present Illness: pulmonary more alert,less dyspneic,pt refusing bipap - Current Medication List Current Medications: Active Medications Albuterol Sulfate (Ventolin 0.083% Nebulizer Soln -) 1 amp NEB Q4H PRN PRN Reason: SHORT OF BREATH/WHEEZING Last Admin: 11/01/18 04:03 Dose: 1 amp Albuterol/Ipratropium (Duoneb -) 1 amp NEB RQID [facility] Last Admin: 11/02/18 12:00 Dose: 1 amp Apixaban (Eliquis -) 5 mg PO BID [facility] Last Admin: 11/02/18 10:18 Dose: 5 mg Aspirin (Asa -) 81 mg PO DAILY [facility] Last Admin: 11/02/18 10:19 Dose: 81 mg Atorvastatin Calcium (Lipitor -) 10 mg PO HS [facility] Last Admin: 11/01/18 22:34 Dose: 10 mg Cyanocobalamin (Vitamin B12 -) 1,000 mcg PO DAILY [facility] Last Admin: 11/02/18 10:19 Dose: 1,000 mcg Diltiazem HCl (Cardizem Cd -) 180 mg PO DAILY [facility] Last Admin: 11/02/18 10:18 Dose: 180 mg Ergocalciferol (Drisdol -) 50,000 unit PO Q7D@1000 [facility] Ferrous Sulfate (Feosol -) 325 mg PO BID [facility] Last Admin: 11/02/18 10:18 Dose: 325 mg Furosemide (Lasix -) 40 mg PO DAILY [facility] Last Admin: 11/02/18 10:18 Dose: 40 mg Guaifenesin (Mucinex -) 600 mg PO BID [facility] Last Admin: 11/02/18 10:18 Dose: 600 mg Ceftriaxone Sodium 1 gm/ (Dextrose) 50 mls @ 100 mls/hr IVPB DAILY [facility]; Protocol Last Admin: 11/02/18 10:19 Dose: 100 mls/hr Metoprolol Succinate (Toprol Xl -) 100 mg PO BID [facility] Last Admin: 11/02/18 10:18 Dose: 100 mg Non-Formulary Medication (Benzonatate [Benzonatate]) 100 mg PO BID [facility] Last Admin: 11/01/18 22:35 Dose: Not Given Nystatin (Nystop Powder -) 1 applic TP DAILY [facility] Last Admin: 11/02/18 10:37 Dose: 1 applic Potassium Chloride (K-Dur -) 20 meq PO DAILY [facility] Last Admin: 11/02/18 10:19 Dose: 20 meq Prednisone (Deltasone -) 40 mg PO DAILY [facility] Last Admin: 11/02/18 12:02 Dose: 40 mg Spironolactone (Aldactone -) 25 mg PO DAILY [facility] Last Admin: 11/02/18 10:19 Dose: 25 mg - Objective Vital Signs: Vital Signs Temperature 98.1 F 11/02/18 06:54 Pulse Rate 71 11/02/18 06:54 Respiratory Rate 20 11/02/18 06:54 Blood Pressure 121/50 L 11/02/18 06:54 O2 Sat by Pulse Oximetry (%) 94 L 11/02/18 12:00 Constitutional: Yes: Well Nourished, Calm Eyes: Yes: WNL HENT: Yes: WNL Neck: Yes: WNL Cardiovascular: Yes: Pulse Irregular, S1, S2 Respiratory: Yes: Rales, Wheezes (scattered rg wheezes,crackles) Gastrointestinal: Yes: Normal Bowel Sounds, Soft Extremities: Yes: WNL Edema: No Labs: CBC, BMP 11/02/18 06:10 11/02/18 06:10 INR, PTT INR 1.88 (0.83-1.09) H 10/30/18 07:00 Fibrinogen 408.0 mg/dL (238-498) 10/30/18 07:00 Assessment/Plan Problem List - Problems (1) Acute respiratory failure with hypoxia Code(s): J96.01 - ACUTE RESPIRATORY FAILURE WITH HYPOXIA (2) Leukocytosis Code(s): D72.829 - ELEVATED WHITE BLOOD CELL COUNT, UNSPECIFIED (3) Pneumonia Code(s): J18.9 - PNEUMONIA, UNSPECIFIED ORGANISM (4) Atrial fibrillation Code(s): I48.91 - UNSPECIFIED ATRIAL FIBRILLATION (5) CVA (cerebral vascular accident) Code(s): I63.9 - CEREBRAL INFARCTION, UNSPECIFIED (6) Pulmonary embolism Code(s): I26.99 - OTHER PULMONARY EMBOLISM WITHOUT ACUTE COR PULMONALE Assessment/Plan NC O2 as tolerated NIPPV support as need if pt complies f/u abgs Aspiration precautions Zithromax/Rocephin Check sputum if patient allows BD TX PRN Steroid taper avoid sedation f/u chest x-ray DR CABRAL
--- NOTE | 2018-11-02 14:12 | PN ---
Progress Note (short form) - Note Progress Note: 87-year-old female with longstanding history of permanent atrialfibrillation, hypertension, hypertensive cardiovascular disease, hypercholesterolemia, history of myocardial infarction following a knee replacementfurther complicated by pulmonary thromboembolism and atrial fibrillation. Patient is more alert. No SOB reported, no chest pains reported, undergoing PT. Active Medications Albuterol Sulfate (Ventolin 0.083% Nebulizer Soln -) 1 amp NEB Q4H PRN PRN Reason: SHORT OF BREATH/WHEEZING Last Admin: 11/01/18 04:03 Dose: 1 amp Albuterol/Ipratropium (Duoneb -) 1 amp NEB RQID [facility] Last Admin: 11/02/18 12:00 Dose: 1 amp Apixaban (Eliquis -) 5 mg PO BID [facility] Last Admin: 11/02/18 10:18 Dose: 5 mg Aspirin (Asa -) 81 mg PO DAILY [facility] Last Admin: 11/02/18 10:19 Dose: 81 mg Atorvastatin Calcium (Lipitor -) 10 mg PO HS [facility] Last Admin: 11/01/18 22:34 Dose: 10 mg Cyanocobalamin (Vitamin B12 -) 1,000 mcg PO DAILY [facility] Last Admin: 11/02/18 10:19 Dose: 1,000 mcg Diltiazem HCl (Cardizem Cd -) 180 mg PO DAILY [facility] Last Admin: 11/02/18 10:18 Dose: 180 mg Ergocalciferol (Drisdol -) 50,000 unit PO Q7D@1000 [facility] Ferrous Sulfate (Feosol -) 325 mg PO BID [facility] Last Admin: 11/02/18 10:18 Dose: 325 mg Furosemide (Lasix -) 40 mg PO DAILY [facility] Last Admin: 11/02/18 10:18 Dose: 40 mg Guaifenesin (Mucinex -) 600 mg PO BID [facility] Last Admin: 11/02/18 10:18 Dose: 600 mg Ceftriaxone Sodium 1 gm/ (Dextrose) 50 mls @ 100 mls/hr IVPB DAILY [facility]; Protocol Last Admin: 11/02/18 10:19 Dose: 100 mls/hr Metoprolol Succinate (Toprol Xl -) 100 mg PO BID [facility] Last Admin: 11/02/18 10:18 Dose: 100 mg Non-Formulary Medication (Benzonatate [Benzonatate]) 100 mg PO BID [facility] Last Admin: 11/01/18 22:35 Dose: Not Given Nystatin (Nystop Powder -) 1 applic TP DAILY [facility] Last Admin: 11/02/18 10:37 Dose: 1 applic Potassium Chloride (K-Dur -) 20 meq PO DAILY [facility] Last Admin: 11/02/18 10:19 Dose: 20 meq Prednisone (Deltasone -) 40 mg PO DAILY [facility] Last Admin: 11/02/18 12:02 Dose: 40 mg Spironolactone (Aldactone -) 25 mg PO DAILY [facility] Last Admin: 11/02/18 10:19 Dose: 25 mg PHYSICAL EXAMINATION: General: 87-year-old female who is lethargic but arousible. No pallor or cyanosis. No clubbing or jaundice. Last Vital Signs Temp Pulse Resp BP Pulse Ox 98.1 F 71 26 H 121/50 L 94 L 11/02/18 06:54 11/02/18 06:54 11/02/18 09:00 11/02/18 06:54 11/02/18 12:00 Neck: Supple, no JVD, negative HJR, carotids were 2+, no bruits were heard, no thyromegaly present. Heart: Distant heart sounds which are obscured by breath sounds. Unable to appreciate murmur or gallops. Lungs: Bilateral coarse breath sounds, bilateral expiratory wheezing and scattered crepitations. Abdomen: Soft, obese, nontender, no hepatosplenomegaly appreciated. Extremities: No calf tenderness, 1+ left pre-tibial edema. CBC, BMP 11/02/18 06:10 11/02/18 06:10 IMPRESSION: 1. Congestive heart failure, resolving. 2. Bilateral pneumonia. 3. Asthmatic bronchitis. 4. Hypertension, hypertensive cardiovascular disease. 5. History of coronary artery disease, status post myocardial infarction post rightknee replacement. 6. Status post pulmonary thromboembolism. 6. Status post cerebrovascular accident without resldual sequelae. 7. Hypercholesterolemia. 8. Permanent atrial fibrillation. 9. Exogenous obesity. 10. History of diverticulitis. 11. Acute renal insufficiency. 12. Prerenal azotemia. RECOMMENDATIONS: 1. Continue medications as outlined. 2. Avoid tranquilizers or sedatives. 3. Increase ambulation. 4. Cautious replacemenr of fluids. Prognosis: Guarded. Keagan Turner M.D., F.A.C.C.
[2018-11-02 15:22] LABS: ARTERIAL BLD GAS O2 SATURATION 94.9 % (95-98); ARTERIAL BLOOD GAS BASE EXCESS 1.3 meq/l (-2-2); ARTERIAL BLOOD GAS PCO2 45.2 mmHg (35-45); ARTERIAL BLOOD GAS PO2 75.2 mmHg (80-105); ARTERIAL BLOOD GAS pH 7.38 (7.35-7.45)
[2018-11-02 15:23] LABS: ALLENS TEST POSITIVE
[2018-11-02] MEDS: ATORVASTATIN CA 10 MG TABLET (FP) PO SCH (21:18)
[2018-11-03] MEDS: ALBUTEROL SO4 2.5/IPRATROPIUM 0.5 INH SOL 3 ML VIAL.NEB. NEB SCH ×4 (08:14→20:39)
[2018-11-03] MEDS ORDERED: PT OWN MED DRAWER 7, Y5N ONE (09:52)
[2018-11-03] MEDS ORDERED: DEXTROSE 5%-WATER - 50 ML IVPB ONE (09:53)
[2018-11-03] MEDS ORDERED: cefTRIAXone SODIUM 1 GM VIAL ONE (09:53)
[2018-11-03] MEDS ORDERED: ERGOCALCIFEROL (VIT D2) 50,000 UNIT (1.25 MG) CAPSULE PO SCH (10:00)
[2018-11-03] MEDS: predniSONE 20 MG TABLET (UD) PO SCH (10:03)
[2018-11-03] MEDS: guaiFENesin 600 MG TABLET.ER (FP) PO SCH ×2 (10:03→21:09)
[2018-11-03] MEDS: FERROUS SO4 325 MG TABLET (FP) PO SCH ×3 (10:03→21:23)
[2018-11-03] MEDS: APIXABAN 5 MG TABLET PO SCH ×2 (10:03→21:09)
[2018-11-03] MEDS: POTASSIUM CHLORIDE TABS 20 MEQ TABLET.ER (FP) PO SCH (10:03)
[2018-11-03] MEDS: FUROSEMIDE 40 MG TABLET (FP) PO SCH (10:03)
[2018-11-03] MEDS: ASPIRIN 81 MG CHEWABLE TABLETS PO SCH (10:04)
[2018-11-03] MEDS: NYSTATIN POWDER 100,000 UNITS/GM - 15 GM TOPICAL POWDER TP SCH (10:04)
[2018-11-03] MEDS: SPIRONOLACTONE 25 MG TABLET (FP) PO SCH (10:04)
[2018-11-03] MEDS: CEFTRIAXONE 1 GM in DEXTROSE 5%-WATER - 50 ML IVPB SCH (10:04)
[2018-11-03] MEDS: CYANOCOBALAMIN 1,000 MCG TABLET (FP) PO SCH (10:04)
[2018-11-03] MEDS: PATIENT'S OWN MEDICATION (NON-FORMULARY) (Benzonatate [Benzonatate] 100 MG) PO SCH ×2 (10:15→21:03)
[2018-11-03 10:18] VITALS: BMI 39.1
--- NOTE | 2018-11-03 11:54 | PN ---
Progress Note (short form) - Note Progress Note: Remains confused but more interactive. Breathing overall appears and sounds better. Improving congested cough. Daughter at the bedside. Intake & Output 10/31/18 11/01/18 11/02/18 11/03/18 23:59 23:59 23:59 23:59 Intake Total 600 700 540 Balance 600 700 540 Weight 207 lb 9.6 oz 207 lb Last Vital Signs Temp Pulse Resp BP Pulse Ox 97.6 F 78 18 139/74 92 L 11/03/18 08:51 11/03/18 08:51 11/03/18 08:51 11/03/18 08:51 11/03/18 08:34 Active Medications Albuterol Sulfate (Ventolin 0.083% Nebulizer Soln -) 1 amp NEB Q4H PRN PRN Reason: SHORT OF BREATH/WHEEZING Last Admin: 11/01/18 04:03 Dose: 1 amp Albuterol/Ipratropium (Duoneb -) 1 amp NEB RQID [facility] Last Admin: 11/03/18 08:14 Dose: 1 amp Apixaban (Eliquis -) 5 mg PO BID [facility] Last Admin: 11/03/18 10:03 Dose: 5 mg Aspirin (Asa -) 81 mg PO DAILY [facility] Last Admin: 11/03/18 10:04 Dose: 81 mg Atorvastatin Calcium (Lipitor -) 10 mg PO HS [facility] Last Admin: 11/02/18 21:18 Dose: 10 mg Cyanocobalamin (Vitamin B12 -) 1,000 mcg PO DAILY [facility] Last Admin: 11/03/18 10:04 Dose: 1,000 mcg Diltiazem HCl (Cardizem Cd -) 180 mg PO DAILY [facility] Last Admin: 11/03/18 10:03 Dose: 180 mg Ergocalciferol (Drisdol -) 50,000 unit PO Q7D@1000 [facility] Last Admin: 11/03/18 10:24 Dose: 50,000 unit Ferrous Sulfate (Feosol -) 325 mg PO BID [facility] Last Admin: 11/03/18 10:03 Dose: 325 mg Furosemide (Lasix -) 40 mg PO DAILY [facility] Last Admin: 11/03/18 10:03 Dose: 40 mg Guaifenesin (Mucinex -) 600 mg PO BID [facility] Last Admin: 11/03/18 10:03 Dose: 600 mg Ceftriaxone Sodium 1 gm/ (Dextrose) 50 mls @ 100 mls/hr IVPB DAILY [facility]; Protocol Last Admin: 11/03/18 10:04 Dose: 100 mls/hr Metoprolol Succinate (Toprol Xl -) 100 mg PO BID [facility] Last Admin: 11/03/18 10:04 Dose: 100 mg Non-Formulary Medication (Benzonatate [Benzonatate]) 100 mg PO BID [facility] Last Admin: 11/03/18 10:15 Dose: Not Given Nystatin (Nystop Powder -) 1 applic TP DAILY [facility] Last Admin: 11/03/18 10:04 Dose: 1 applic Potassium Chloride (K-Dur -) 20 meq PO DAILY [facility] Last Admin: 11/03/18 10:03 Dose: 20 meq Prednisone (Deltasone -) 40 mg PO DAILY [facility] Last Admin: 11/03/18 10:03 Dose: 40 mg Spironolactone (Aldactone -) 25 mg PO DAILY [facility] Last Admin: 11/03/18 10:04 Dose: 25 mg Constitutional: Yes: More alert and interactive, Confused, less tachypneic at rest Eyes: Yes: Conjunctiva Clear, EOM Intact HENT: Yes: Atraumatic, Normocephalic Neck: Yes: Supple, Trachea Midline Cardiovascular: Yes: Tachycardia, Pulse Irregular Respiratory: Yes: Cough, NO Expiratory wheeze, On Nasal O2, Rhonchi. No: Stridor ...Inspection: Yes: WNL ...Clubbing: No Gastrointestinal: Yes: Normal Bowel Sounds, Soft Renal/: Yes: WNL Musculoskeletal: Yes: WNL Extremities: Yes: WNL Edema: No Peripheral Pulses WNL: Yes Integumentary: Yes: WNL Neurological: Yes: Alert, Oriented Psychiatric: Yes: Alert Labs: Laboratory Results - last 24 hr 11/02/18 15:10 Anticoagulation Therapy No Result Required. Puncture Site Left radial ABG pH 7.38 ABG pCO2 at Pt Temp 45.2 H ABG pO2 at Pt Temp 75.2 L ABG HCO3 26.1 ABG O2 Sat (Measured) 94.9 L ABG O2 Content 12.9 L ABG Base Excess 1.3 Stef Test Positive O2 Delivery Device Nasal Oxygen Flow Rate 2 Vent Mode No Result Required. Vent Rate No Result Required. Mechanical Rate No Result Required. Pressure Support Vent No Result Required. Problem List - Problems (1) Acute respiratory failure with hypoxia Code(s): J96.01 - ACUTE RESPIRATORY FAILURE WITH HYPOXIA (2) Leukocytosis Code(s): D72.829 - ELEVATED WHITE BLOOD CELL COUNT, UNSPECIFIED (3) Pneumonia Code(s): J18.9 - PNEUMONIA, UNSPECIFIED ORGANISM (4) Atrial fibrillation Code(s): I48.91 - UNSPECIFIED ATRIAL FIBRILLATION (5) CVA (cerebral vascular accident) Code(s): I63.9 - CEREBRAL INFARCTION, UNSPECIFIED (6) Pulmonary embolism Code(s): I26.99 - OTHER PULMONARY EMBOLISM WITHOUT ACUTE COR PULMONALE Assessment/Plan NC O2 as tolerated Consider change to PO ABX Prednisone taper over 1 week BD TX PRN D/C planning Dr Prieto Problem List - Problems (1) Acute respiratory failure with hypoxia Code(s): J96.01 - ACUTE RESPIRATORY FAILURE WITH HYPOXIA (2) Leukocytosis Code(s): D72.829 - ELEVATED WHITE BLOOD CELL COUNT, UNSPECIFIED (3) Pneumonia Code(s): J18.9 - PNEUMONIA, UNSPECIFIED ORGANISM (4) Atrial fibrillation Code(s): I48.91 - UNSPECIFIED ATRIAL FIBRILLATION (5) CVA (cerebral vascular accident) Code(s): I63.9 - CEREBRAL INFARCTION, UNSPECIFIED (6) Pulmonary embolism Code(s): I26.99 - OTHER PULMONARY EMBOLISM WITHOUT ACUTE COR PULMONALE
--- NOTE | 2018-11-03 12:52 | PN ---
Physical Exam: SUBJECTIVE: Patient seen this morning and more awake. Patient did not sleep overnight. OBJECTIVE: Vital Signs Temperature 97.6 F 11/03/18 08:51 Pulse Rate 78 11/03/18 08:51 Respiratory Rate 18 11/03/18 08:51 Blood Pressure 139/74 11/03/18 08:51 O2 Sat by Pulse Oximetry (%) 92 L 11/03/18 08:34 GENERAL: The patient is awake, oriented to person. HEAD: Normal with no signs of trauma. EYES: PERRL, extraocular movements intact, LUNGS: lungs clear to auscultation, no accessory muscle use, no wheezing heard HEART: Regular rate and rhythm, S1, S2 without murmur, rub or gallop. ABDOMEN: Soft, nontender, nondistended, normoactive bowel sounds, EXTREMITIES: 2+ pulses, warm, well-perfused, no edema. SKIN: Warm, dry, normal turgor, no rashes or lesions noted Laboratory Results - last 24 hr 11/02/18 15:10 Anticoagulation Therapy No Result Required. Puncture Site Left radial ABG pH 7.38 ABG pCO2 at Pt Temp 45.2 H ABG pO2 at Pt Temp 75.2 L ABG HCO3 26.1 ABG O2 Sat (Measured) 94.9 L ABG O2 Content 12.9 L ABG Base Excess 1.3 Stef Test Positive O2 Delivery Device Nasal Oxygen Flow Rate 2 Vent Mode No Result Required. Vent Rate No Result Required. Mechanical Rate No Result Required. Pressure Support Vent No Result Required. Active Medications Albuterol Sulfate (Ventolin 0.083% Nebulizer Soln -) 1 amp NEB Q4H PRN PRN Reason: SHORT OF BREATH/WHEEZING Last Admin: 11/01/18 04:03 Dose: 1 amp Albuterol/Ipratropium (Duoneb -) 1 amp NEB RQID [facility] Last Admin: 11/03/18 11:55 Dose: 1 amp Apixaban (Eliquis -) 5 mg PO BID [facility] Last Admin: 11/03/18 10:03 Dose: 5 mg Aspirin (Asa -) 81 mg PO DAILY [facility] Last Admin: 11/03/18 10:04 Dose: 81 mg Atorvastatin Calcium (Lipitor -) 10 mg PO HS [facility] Last Admin: 11/02/18 21:18 Dose: 10 mg Cyanocobalamin (Vitamin B12 -) 1,000 mcg PO DAILY [facility] Last Admin: 11/03/18 10:04 Dose: 1,000 mcg Diltiazem HCl (Cardizem Cd -) 180 mg PO DAILY [facility] Last Admin: 11/03/18 10:03 Dose: 180 mg Ergocalciferol (Drisdol -) 50,000 unit PO Q7D@1000 [facility] Last Admin: 11/03/18 10:24 Dose: 50,000 unit Ferrous Sulfate (Feosol -) 325 mg PO BID [facility] Last Admin: 11/03/18 10:03 Dose: 325 mg Furosemide (Lasix -) 40 mg PO DAILY [facility] Last Admin: 11/03/18 10:03 Dose: 40 mg Guaifenesin (Mucinex -) 600 mg PO BID [facility] Last Admin: 11/03/18 10:03 Dose: 600 mg Ceftriaxone Sodium 1 gm/ (Dextrose) 50 mls @ 100 mls/hr IVPB DAILY [facility]; Protocol Last Admin: 11/03/18 10:04 Dose: 100 mls/hr Metoprolol Succinate (Toprol Xl -) 100 mg PO BID [facility] Last Admin: 11/03/18 10:04 Dose: 100 mg Non-Formulary Medication (Benzonatate [Benzonatate]) 100 mg PO BID [facility] Last Admin: 11/03/18 10:15 Dose: Not Given Nystatin (Nystop Powder -) 1 applic TP DAILY [facility] Last Admin: 11/03/18 10:04 Dose: 1 applic Potassium Chloride (K-Dur -) 20 meq PO DAILY [facility] Last Admin: 11/03/18 10:03 Dose: 20 meq Prednisone (Deltasone -) 30 mg PO DAILY [facility] Spironolactone (Aldactone -) 25 mg PO DAILY [facility] Last Admin: 11/03/18 10:04 Dose: 25 mg ASSESSMENT/PLAN: Patient is a 89 y/o female with a past medical history of HTN, HLD, NC (2007), CVA, afib ( on eliquis) and provoked PE who is admitted for PNA. #Acute hypoxic respiratory failure 2/2 to Pneumonia - Chest CT: bibasilar infiltrates L>R, 1.4 UL ground glass opacity, main pulmonary artery dilated suggesting increased pulm arterial pressure - will need f/u CT in 3 months for UL mass - keep saturation above 90%, NC as needed, Patient should be on Bipap - prednisone 40 today will decrease to 30 tomorrow - continue Ceftriaxone (day 8) - nebs standing and prn - incentive spirometer q1h - ABG and repeat shows CO2 retention, repeat ABG in the afternoon #acute diastolic CHF with pulmonary HTN - ECHO:LV sys function grossly normal, left atrium mildly dilated, mild tricuspid regurg, mild pulmonic valvular regurg, PLM HTN 50-60 - continue lasix po 40 daily, continue aldactone, BB, #acute metabolic encephalopathy - combination of hypercapneia and steroids - consulted family on importance of bipap use, patient resistant - will continue to monitor #hx CVA - continue atorvastatin, bb, and aspirin #afib - continue eliquis 5 BID - spironolactone 25 daily - continue diltiazem #anemia 2/2 to iron deficiency - continue ferrous sulfate - low FE from last visit, ferrous sulfate 325 BID #HTN - continue diltiazem - torpol 100 BID #DVT ppx - on eliquis FEN - sodium controlled diet - per PT patient would benefit from rehab, patients family prefers her to go home - hypokalemia resolved, continue Kdur Dispo: patient to be DC tomorrow Visit type - Emergency Visit Emergency Visit: No - New Patient This patient is new to me today: No - Critical Care Critical Care patient: No
--- NOTE | 2018-11-03 13:14 | PN ---
Teaching Attending Note Name of Resident: Suyapa Rothman ATTENDING PHYSICIAN STATEMENT I saw and evaluated the patient. I reviewed the resident's note and discussed the case with the resident. I agree with the resident's findings and plan as documented. SUBJECTIVE:asymptomatic. states breathing is improved. no cough. denies Cp,SOB, fever, chills, N/V/C/D OBJECTIVE: Last Vital Signs Temp Pulse Resp BP Pulse Ox 97.6 F 78 18 139/74 92 L 11/03/18 08:51 11/03/18 08:51 11/03/18 08:51 11/03/18 08:51 11/03/18 08:34 General NAD, more alert CV S1 s2 RRR No murmur/rub/gallop Lungs CTA B/L no wheezing/rales/rhonchi. good expansion Extremities no pitting edema ASSESSMENT AND PLAN: 87 year old woman with a history of HTN, hyperlipidemia, CAD, ND, PE, atrial fibrillation, CVA with dysarthria and expressive dysphasia who presented to the ED with hypoxia, SOB, cough, fever and found to have acute hypoxic respiratory failure due to PNA and diastolic CHF exacerbation 1. Acute hypoxic hypercapnic respiratory failure secondary to bilateral pneumonia and acute diastolic heart failure-clinically improved. pt refused bipap yesterday. repeat Co2 is better. on ceftriaxone day 8. pred 40mg. as per respiratory can do quick taper due to mental status from steroids. will check pre and post. lasix po. titrate down supplemental oxygen as tolerated 2. Acute COPD exacerbation- clinically improved. no wheezing on exam. on prednisone 40mg po. will do quick taper. nebs RTC and PRN. pulmonary on board. check pre and post. 3. Acute metabolic encephalopathy- likely combination of steroids, hypercapnia and ativan given. today is more alert. less confused per daughter. should improve as steroids are weaned. 4. hypokalemia- resolved 5. afib with RVR- now rate controlled. cont current treatment. on eliquis 6. CAD, history of ND- Continue aspirin, Toprol XL, Lipitor 7. Hyperlipidemia- Continue Lipitor 8. HTN- Continue Toprol XL, Cardizem CD, Aldactone, Lasix 9. History of PE after orthopedic surgery 10. Anemia secondary to iron deficiency, B12 deficiency- Continue ferrous sulfate, B12 supplementation 11. RUL ground glass lung opacity- Incidental finding on CT - needs repeat imaging in 3 months 12. Dysarthria and expressive dysphasia secondary to old CVA- Continue aspirin, Lipitor, Eliquis 13. DVT ppx- eliquis 14. spoke with daughter present at bedside. aware of plan and agreed. discuss the benefit/risk of mother going to [facility]. as per PT notes would benefit. however has had worsening delerium in [facility] in the past. Daughter wants to bring her home and is aware of fall risk. states she has aid that is most of the day and will increase hours if necessary. anticipate discharge tomorrow. daughter aware
[2018-11-03] MEDS ORDERED: ONDANSETRON 4 MG/2 ML VIAL IVPB ONE (15:25)
[2018-11-03] MEDS: ONDANSETRON 4 MG/2 ML VIAL IVPB SCH ×2 (15:45→21:09)
[2018-11-03] MEDS: POLYETHYLENE GLYCOL 3350 119 GM BTL PO SCH (16:11)
[2018-11-03] MEDS ORDERED: GLYCERIN 1 RECTAL SUPPOSITORY, ADULT RC ONE (16:29)
--- NOTE | 2018-11-03 18:24 | PN ---
Progress Note (short form) - Note Progress Note: 87-year-old female with longstanding history of permanent atrialfibrillation, hypertension, hypertensive cardiovascular disease, hypercholesterolemia, history of myocardial infarction following a knee replacementfurther complicated by pulmonary thromboembolism and atrial fibrillation. admitted with with bilateral pneumonia and CHF. patient is lethargic and cofused, developed vomiting and has abdominal distension. A Active Medications Albuterol Sulfate (Ventolin 0.083% Nebulizer Soln -) 1 amp NEB Q4H PRN PRN Reason: SHORT OF BREATH/WHEEZING Last Admin: 11/01/18 04:03 Dose: 1 amp Albuterol/Ipratropium (Duoneb -) 1 amp NEB RQID [facility] Last Admin: 11/03/18 15:33 Dose: Not Given Apixaban (Eliquis -) 5 mg PO BID [facility] Last Admin: 11/03/18 10:03 Dose: 5 mg Aspirin (Asa -) 81 mg PO DAILY [facility] Last Admin: 11/03/18 10:04 Dose: 81 mg Atorvastatin Calcium (Lipitor -) 10 mg PO HS [facility] Last Admin: 11/02/18 21:18 Dose: 10 mg Cyanocobalamin (Vitamin B12 -) 1,000 mcg PO DAILY [facility] Last Admin: 11/03/18 10:04 Dose: 1,000 mcg Diltiazem HCl (Cardizem Cd -) 180 mg PO DAILY [facility] Last Admin: 11/03/18 10:03 Dose: 180 mg Ergocalciferol (Drisdol -) 50,000 unit PO Q7D@1000 [facility] Last Admin: 11/03/18 10:24 Dose: 50,000 unit Ferrous Sulfate (Feosol -) 325 mg PO BID [facility] Last Admin: 11/03/18 10:03 Dose: 325 mg Furosemide (Lasix -) 40 mg PO DAILY [facility] Last Admin: 11/03/18 10:03 Dose: 40 mg Guaifenesin (Mucinex -) 600 mg PO BID [facility] Last Admin: 11/03/18 10:03 Dose: 600 mg Ceftriaxone Sodium 1 gm/ (Dextrose) 50 mls @ 100 mls/hr IVPB DAILY [facility]; Protocol Last Admin: 11/03/18 10:04 Dose: 100 mls/hr Metoprolol Succinate (Toprol Xl -) 100 mg PO BID [facility] Last Admin: 11/03/18 10:04 Dose: 100 mg Non-Formulary Medication (Benzonatate [Benzonatate]) 100 mg PO BID [facility] Last Admin: 11/03/18 10:15 Dose: Not Given Nystatin (Nystop Powder -) 1 applic TP DAILY [facility] Last Admin: 11/03/18 10:04 Dose: 1 applic Ondansetron HCl (Zofran Injection) 8 mg IVPB Q6H [facility] Last Admin: 11/03/18 15:45 Dose: Not Given Polyethylene Glycol (Miralax (For Daily Use) -) 17 gm PO DAILY [facility] Last Admin: 11/03/18 16:11 Dose: 17 grams Prednisone (Deltasone -) 30 mg PO DAILY [facility] Senna/Docusate Sodium (Pericolace -) 1 tablet PO BID [facility] Spironolactone (Aldactone -) 25 mg PO DAILY [facility] Last Admin: 11/03/18 10:04 Dose: 25 mg PHYSICAL EXAMINATION: General: 87-year-old female who is lethargic,No pallor or cyanosis, clubbing or jaundice. Afebrile. Last Vital Signs Temp Pulse Resp BP Pulse Ox 98.3 F 99 H 18 138/73 97 11/03/18 14:18 11/03/18 14:53 11/03/18 14:18 11/03/18 14:18 11/03/18 14:53 Neck: Supple, no JVD, negative HJR, carotids were 2+, no bruits were heard, no thyromegaly present. Heart: Distant heart sounds which are obscured by breath sounds. Unable to appreciate murmur or gallops. Lungs: scattered wheezing.No creps heard. Abdomen: Soft, obese, distended, nontender, no hepatosplenomegaly appreciated. No bowei sounds heard Extremities: No calf tenderness, 1+ left pre-tibial edema. CBC, BMP 11/02/18 06:10 11/02/18 06:10 IMPRESSION: 1. Congestive heart failure. 2. Bilateral pneumonia. 3. Asthmatic bronchitis. 4. Vomiting,constipation and abdominal distension, obstruction needs exclusion , eg ileus 5. History of coronary artery disease, status post myocardial infarction post rightknee replacement. 6. Status post pulmonary thromboembolism. 6. Status post cerebrovascular accident without resldual sequelae. 7. Hypercholesterolemia. 8. Permanent atrial fibrillation. 9. Exogenous obesity. 10. History of diverticulitis. 11. Acute renal insufficiency. 12. Prerenal azotemia. RECOMMENDATIONS: 1. Continue medications as outlined. 2. Avoid tranquilizers or sedatives. 3. Magnesium level 4. Cautious replacemenr of fluids. Prognosis: Guarded. Keagan Turner M.D., F.A.C.C.
[2018-11-03] MEDS: ATORVASTATIN CA 10 MG TABLET (FP) PO SCH ×2 (21:09→21:23)
[2018-11-03] MEDS: SENNOSIDES/DOCUSATE COMBO (SENNA PLUS) TABLET (UD) PO SCH (21:09)
[2018-11-04] MEDS: ONDANSETRON 4 MG/2 ML VIAL IVPB SCH (03:50)
[2018-11-04] MEDS ORDERED: ONDANSETRON 4 MG/2 ML VIAL IVPUSH PRN (08:28)
[2018-11-04] MEDS: ALBUTEROL SO4 2.5/IPRATROPIUM 0.5 INH SOL 3 ML VIAL.NEB. NEB SCH ×3 (08:45→16:03)
[2018-11-04] MEDS ORDERED: PT OWN MED DRAWER 7, Y5N ONE ×2 (09:49→10:29)
[2018-11-04] MEDS ORDERED: DEXTROSE 5%-WATER - 50 ML IVPB ONE (09:50)
[2018-11-04] MEDS ORDERED: cefTRIAXone SODIUM 1 GM VIAL ONE (09:50)
[2018-11-04] MEDS ORDERED: predniSONE 10 MG TABLET (UD) PO SCH (10:00)
[2018-11-04] MEDS: CEFTRIAXONE 1 GM in DEXTROSE 5%-WATER - 50 ML IVPB SCH (10:03)
[2018-11-04] MEDS: guaiFENesin 600 MG TABLET.ER (FP) PO SCH (10:04)
[2018-11-04] MEDS: FERROUS SO4 325 MG TABLET (FP) PO SCH (10:04)
[2018-11-04] MEDS: ASPIRIN 81 MG CHEWABLE TABLETS PO SCH (10:05)
[2018-11-04] MEDS: CYANOCOBALAMIN 1,000 MCG TABLET (FP) PO SCH (10:05)
[2018-11-04] MEDS: APIXABAN 5 MG TABLET PO SCH (10:05)
[2018-11-04] MEDS: SPIRONOLACTONE 25 MG TABLET (FP) PO SCH (10:06)
[2018-11-04] MEDS: POLYETHYLENE GLYCOL 3350 119 GM BTL PO SCH (10:06)
[2018-11-04] MEDS: FUROSEMIDE 40 MG TABLET (FP) PO SCH (10:06)
[2018-11-04] MEDS: SENNOSIDES/DOCUSATE COMBO (SENNA PLUS) TABLET (UD) PO SCH (10:07)
--- NOTE | 2018-11-04 10:17 | PN ---
Teaching Attending Note Name of Resident: Suyapa Rothman ATTENDING PHYSICIAN STATEMENT I saw and evaluated the patient. I reviewed the resident's note and discussed the case with the resident. I agree with the resident's findings and plan as documented. SUBJECTIVE:breathing resolved. notes she had non bilious vomiting yesterday but notes she has not moved her bowel for over a week. denies CP, SOB, fever, chills , N/V/C/D OBJECTIVE: Last Vital Signs Temp Pulse Resp BP Pulse Ox 98.4 F 86 20 145/76 96 11/04/18 06:00 11/04/18 06:00 11/04/18 06:00 11/04/18 06:00 11/03/18 21:00 General NAD, more alert, speaking more flutently CV S1 s2 RRR No murmur/rub/gallop Lungs CTA B/L no wheezing/rales/rhonchi. good expansion abdomen soft NT/ND normoractive BS Extremities no pitting edema ASSESSMENT AND PLAN: 87 year old woman with a history of HTN, hyperlipidemia, CAD, CA, PE, atrial fibrillation, CVA with dysarthria and expressive dysphasia who presented to the ED with hypoxia, SOB, cough, fever and found to have acute hypoxic respiratory failure due to PNA and diastolic CHF exacerbation 1. Acute hypoxic hypercapnic respiratory failure secondary to bilateral pneumonia and acute diastolic heart failure-clinically improved. pt refused bipap yesterday. repeat Co2 is better. on ceftriaxone day 9. pred 40mg. as per respiratory can do quick taper due to mental status from steroids. needs 2L NC at rest to maintain SpO2 >90%. will need repeat CXR in 6 weeks. titrate down supplemental oxygen as tolerated 2. Acute COPD exacerbation- clinically improved. no wheezing on exam. on prednisone 40mg po. will do quick taper. nebs RTC and PRN. pulmonary on board. check pre and post. 3. Acute metabolic encephalopathy- likely combination of steroids, hypercapnia and ativan given. is improved today. alert and speaking more clearly. should improve as steroids are weaned. 4. Constipation- no BM for over a week. abdomen is soft. started stool softeners yesterday. will give enema 5. hypokalemia- resolved . afib with RVR- now rate controlled. cont current treatment. on eliquis 7. CAD, history of CA- Continue aspirin, Toprol XL, Lipitor 8. Hyperlipidemia- Continue Lipitor 9. HTN- Continue Toprol XL, Cardizem CD, Aldactone, Lasix 10. History of PE after orthopedic surgery 11. Anemia secondary to iron deficiency, B12 deficiency- Continue ferrous sulfate, B12 supplementation 12. RUL ground glass lung opacity- Incidental finding on CT - needs repeat imaging in 3 months 13. Dysarthria and expressive dysphasia secondary to old CVA- Continue aspirin, Lipitor, Eliquis 14. DVT ppx- eliquis 15. spoke with son present at bedside. aware of plan and agreed. family now agreeable to [facility]. has beds available. awaiting insurance auth. anticipate d/c later today
[2018-11-04] MEDS: PATIENT'S OWN MEDICATION (NON-FORMULARY) (Benzonatate [Benzonatate] 100 MG) PO SCH (10:41)
[2018-11-04] MEDS: NYSTATIN POWDER 100,000 UNITS/GM - 15 GM TOPICAL POWDER TP SCH (10:42)
--- NOTE | 2018-11-04 13:39 | PN ---
Progress Note, Physician History of Present Illness: PULMONARY ALERT,ON NASAL O2,COMFORTABLE, -RESP DISTRESS - Current Medication List Current Medications: Active Medications Albuterol Sulfate (Ventolin 0.083% Nebulizer Soln -) 1 amp NEB Q4H PRN PRN Reason: SHORT OF BREATH/WHEEZING Last Admin: 11/01/18 04:03 Dose: 1 amp Albuterol/Ipratropium (Duoneb -) 1 amp NEB RQID [facility] Last Admin: 11/04/18 12:27 Dose: Not Given Apixaban (Eliquis -) 5 mg PO BID [facility] Last Admin: 11/04/18 10:05 Dose: 5 mg Aspirin (Asa -) 81 mg PO DAILY [facility] Last Admin: 11/04/18 10:05 Dose: 81 mg Atorvastatin Calcium (Lipitor -) 10 mg PO HS [facility] Last Admin: 11/03/18 21:23 Dose: Not Given Cyanocobalamin (Vitamin B12 -) 1,000 mcg PO DAILY [facility] Last Admin: 11/04/18 10:05 Dose: 1,000 mcg Diltiazem HCl (Cardizem Cd -) 180 mg PO DAILY [facility] Last Admin: 11/04/18 10:05 Dose: 180 mg Ergocalciferol (Drisdol -) 50,000 unit PO Q7D@1000 [facility] Last Admin: 11/03/18 10:24 Dose: 50,000 unit Ferrous Sulfate (Feosol -) 325 mg PO BID [facility] Last Admin: 11/04/18 10:04 Dose: 325 mg Furosemide (Lasix -) 40 mg PO DAILY [facility] Last Admin: 11/04/18 10:06 Dose: 40 mg Guaifenesin (Mucinex -) 600 mg PO BID [facility] Last Admin: 11/04/18 10:04 Dose: 600 mg Ceftriaxone Sodium 1 gm/ (Dextrose) 50 mls @ 100 mls/hr IVPB DAILY [facility]; Protocol Last Admin: 11/04/18 10:03 Dose: 100 mls/hr Metoprolol Succinate (Toprol Xl -) 100 mg PO BID [facility] Last Admin: 11/04/18 10:05 Dose: 100 mg Non-Formulary Medication (Benzonatate [Benzonatate]) 100 mg PO BID [facility] Last Admin: 11/04/18 10:41 Dose: Not Given Nystatin (Nystop Powder -) 1 applic TP DAILY [facility] Last Admin: 11/04/18 10:42 Dose: 1 applic Ondansetron HCl (Zofran Injection) 8 mg IVPUSH Q6H PRN PRN Reason: NAUSEA Polyethylene Glycol (Miralax (For Daily Use) -) 17 gm PO DAILY [facility] Last Admin: 11/04/18 10:06 Dose: 17 grams Prednisone (Deltasone -) 30 mg PO DAILY [facility] Last Admin: 11/04/18 10:03 Dose: 30 mg Senna/Docusate Sodium (Pericolace -) 1 tablet PO BID [facility] Last Admin: 11/04/18 10:07 Dose: 1 tablet Spironolactone (Aldactone -) 25 mg PO DAILY [facility] Last Admin: 11/04/18 10:06 Dose: 25 mg - Objective Vital Signs: Vital Signs Temperature 98.0 F 11/04/18 09:00 Pulse Rate 75 11/04/18 09:00 Respiratory Rate 20 11/04/18 09:00 Blood Pressure 129/62 11/04/18 09:00 O2 Sat by Pulse Oximetry (%) 96 11/03/18 21:00 Constitutional: Yes: Well Nourished, Calm Eyes: Yes: WNL HENT: Yes: WNL Neck: Yes: WNL Cardiovascular: Yes: Pulse Irregular, S1, S2 Respiratory: Yes: Diminished Gastrointestinal: Yes: Normal Bowel Sounds, Soft Extremities: Yes: WNL Edema: No Labs: CBC, BMP INR 1.88 (0.83-1.09) H 10/30/18 07:00 Fibrinogen 408.0 mg/dL (238-498) 10/30/18 07:00 Assessment/Plan Problem List - Problems (1) Acute respiratory failure with hypoxia Code(s): J96.01 - ACUTE RESPIRATORY FAILURE WITH HYPOXIA improved (2) Leukocytosis Code(s): D72.829 - ELEVATED WHITE BLOOD CELL COUNT, UNSPECIFIED (3) Pneumonia Code(s): J18.9 - PNEUMONIA, UNSPECIFIED ORGANISM (4) Atrial fibrillation Code(s): I48.91 - UNSPECIFIED ATRIAL FIBRILLATION (5) CVA (cerebral vascular accident) Code(s): I63.9 - CEREBRAL INFARCTION, UNSPECIFIED (6) Pulmonary embolism Code(s): I26.99 - OTHER PULMONARY EMBOLISM WITHOUT ACUTE COR PULMONALE Assessment/Plan NC O2 as AC BD TX PRN Steroid taper DR CABRAL
--- NOTE | 2018-11-04 14:23 | PN ---
Progress Note (short form) - Note Progress Note: 87-year-old female with longstanding history of permanent atrialfibrillation, hypertension, hypertensive cardiovascular disease, hypercholesterolemia, history of myocardial infarction following a knee replacementfurther complicated by pulmonary thromboembolism and atrial fibrillation. admitted with with bilateral pneumonia and CHF. Feels better,tired, no SOB or chest pain. Xray chest 11/02/18 reveal questionable infiltrate/ atelectasis Active Medications Albuterol Sulfate (Ventolin 0.083% Nebulizer Soln -) 1 amp NEB Q4H PRN PRN Reason: SHORT OF BREATH/WHEEZING Last Admin: 11/01/18 04:03 Dose: 1 amp Albuterol/Ipratropium (Duoneb -) 1 amp NEB RQID [facility] Last Admin: 11/04/18 12:27 Dose: Not Given Apixaban (Eliquis -) 5 mg PO BID [facility] Last Admin: 11/04/18 10:05 Dose: 5 mg Aspirin (Asa -) 81 mg PO DAILY [facility] Last Admin: 11/04/18 10:05 Dose: 81 mg Atorvastatin Calcium (Lipitor -) 10 mg PO HS [facility] Last Admin: 11/03/18 21:23 Dose: Not Given Cyanocobalamin (Vitamin B12 -) 1,000 mcg PO DAILY [facility] Last Admin: 11/04/18 10:05 Dose: 1,000 mcg Diltiazem HCl (Cardizem Cd -) 180 mg PO DAILY [facility] Last Admin: 11/04/18 10:05 Dose: 180 mg Ergocalciferol (Drisdol -) 50,000 unit PO Q7D@1000 [facility] Last Admin: 11/03/18 10:24 Dose: 50,000 unit Ferrous Sulfate (Feosol -) 325 mg PO BID [facility] Last Admin: 11/04/18 10:04 Dose: 325 mg Furosemide (Lasix -) 40 mg PO DAILY [facility] Last Admin: 11/04/18 10:06 Dose: 40 mg Guaifenesin (Mucinex -) 600 mg PO BID [facility] Last Admin: 11/04/18 10:04 Dose: 600 mg Ceftriaxone Sodium 1 gm/ (Dextrose) 50 mls @ 100 mls/hr IVPB DAILY [facility]; Protocol Last Admin: 11/04/18 10:03 Dose: 100 mls/hr Metoprolol Succinate (Toprol Xl -) 100 mg PO BID [facility] Last Admin: 11/04/18 10:05 Dose: 100 mg Non-Formulary Medication (Benzonatate [Benzonatate]) 100 mg PO BID [facility] Last Admin: 11/04/18 10:41 Dose: Not Given Nystatin (Nystop Powder -) 1 applic TP DAILY [facility] Last Admin: 11/04/18 10:42 Dose: 1 applic Ondansetron HCl (Zofran Injection) 8 mg IVPUSH Q6H PRN PRN Reason: NAUSEA Polyethylene Glycol (Miralax (For Daily Use) -) 17 gm PO DAILY [facility] Last Admin: 11/04/18 10:06 Dose: 17 grams Prednisone (Deltasone -) 30 mg PO DAILY [facility] Last Admin: 11/04/18 10:03 Dose: 30 mg Senna/Docusate Sodium (Pericolace -) 1 tablet PO BID [facility] Last Admin: 11/04/18 10:07 Dose: 1 tablet Spironolactone (Aldactone -) 25 mg PO DAILY [facility] Last Admin: 11/04/18 10:06 Dose: 25 mg PHYSICAL EXAMINATION: General: 87-year-old female who is lethargic, No pallor or cyanosis, clubbing or jaundice. Afebrile. Last Vital Signs Temp Pulse Resp BP Pulse Ox 96.7 F L 93 H 20 135/64 96 11/04/18 13:42 11/04/18 13:42 11/04/18 13:42 11/04/18 13:42 11/03/18 21:00 Neck: Supple, no JVD, negative HJR, carotids were 2+, no bruits were heard, no thyromegaly present. Heart: Distant heart sounds. No murmur or gallops appreciated. Lungs: scattered wheezing. No crepitations heard. Abdomen: Soft, obese, less distended, nontender, no hepatosplenomegaly appreciated. Extremities: No calf tenderness, 1+ left pre-tibial edema. CBC, BMP 11/02/18 06:10 11/02/18 06:10 IMPRESSION: 1. Congestive heart failure, clinically resolved. 2. Bilateral pneumonia, resolving 3. Asthmatic bronchitis, resolving. 4. Vomiting,constipation and abdominal distension, possibly related to ileus. 5. History of coronary artery disease, status post myocardial infarction post rightknee replacement. 6. Status post pulmonary thromboembolism. 6. Status post cerebrovascular accident without resldual sequelae. 7. Hypercholesterolemia. 8. Permanent atrial fibrillation. 9. Exogenous obesity. 10. History of diverticulitis. 11. Acute renal insufficiency. 12. Prerenal azotemia. RECOMMENDATIONS: 1. Increase ambulation. 2. Cautious replacement of fluids. 3. bed side PT. Prognosis: Guarded. Keagan Turner M.D., F.A.C.C.
--- NOTE | 2018-11-04 14:52 | DS ---
Physical Exam: SUBJECTIVE: Patient seen this morning, More awake, still has some confusion. OBJECTIVE: Vital Signs Temperature 98.1 F 11/04/18 18:13 Pulse Rate 85 11/04/18 18:13 Respiratory Rate 20 11/04/18 18:13 Blood Pressure 142/77 11/04/18 18:13 O2 Sat by Pulse Oximetry (%) 96 11/04/18 09:00 PHYSICAL EXAM GENERAL: The patient is awake, oriented to person. HEAD: Normal with no signs of trauma. EYES: PERRL, extraocular movements intact, LUNGS: lungs clear to auscultation, no accessory muscle use, no wheezing heard HEART: Regular rate and rhythm, S1, S2 without murmur, rub or gallop. ABDOMEN: Soft, nontender, nondistended, normoactive bowel sounds, EXTREMITIES: 2+ pulses, warm, well-perfused, no edema. SKIN: Warm, dry, normal turgor, no rashes or lesions noted LABS HOSPITAL COURSE: Date of Admission:10/27/18 Patient is a 89 y/o female with a past medical history of HTN, HLD, SC (2006), CVA, afib ( on eliquis) and provoked PE who is admitted for PNA. Patient presented for acute hypoxic respiratory failure and was found to have a pneumonia. Patient was treated with steroids and antibiotics. Patient became confused with steroids, they wee tapered down as she clincally improved. Patient was also found to by hypercapnic and had refused BIPAP thoughout entire stay. Once lethargic Bipap was able to be placed and her status improved. Patient was also found to be in CHF exacerbation. Lasix were increased and given IV. She apprpriately respoded and lasix were changed back to home dose. Patient was not able to ambulate with PT. Patient was sent to rehab with familys blecaneloing. Patient vitals stable and stable on exam for discharge. Chest CT: bibasilar infiltrates L>R, 1.4 UL ground glass opacity, main pulmonary artery dilated suggesting increased pulm arterial pressure ECHO:LV sys function grossly normal, left atrium mildly dilated, mild tricuspid regurg, mild pulmonic valvular regurg, PLM HTN 50-60 Date of Discharge: 11/04/18 Minutes to complete discharge: 45 Discharge Summary Reason For Visit: ACUTE RESPIRATORY FAILURE WITH HYPOXIA Current Active Problems Acute respiratory failure with hypoxia (Acute) Atrial fibrillation (Acute) CHF exacerbation (Acute) CVA (cerebral vascular accident) (Acute) Leukocytosis (Acute) Pneumonia (Acute) Pulmonary embolism (Acute) Condition: Improved - Instructions Diet, Activity, Other Instructions: You were admitted to the hospital for an infection in your lungs. While you were here we treated you with steroids and with antibiotics. To complete treatment of this infection please take: Prednisone taper as described below Prednisone 30 mg (3 pills) by mouth for one more days 3x 10 mg = 30 mg Prednisone 20 mg (2 pills) by mouth for two more days 2x 10 mg = 30 mg Prednisone 30 mg (1 pill) by mouth for two more days 1x 10 mg = 30 mg While you were here we also did imaging of your lungs. You were found to have a lung opacity (change in color or density) seen on the CT scan. For this you should continue to follow with a metal rivet machine operator doctor to discuss any further imaging. We will provide you with a referral. While you were here you were found to have constipation. You can use over the counter stool softeners to help soften your stool and have bowel movements. Please continue to take your home medications as prescribed. You should make a follow up appointment with a primary care physician within one week. We have provide referrals for two different primary care groups. Return to the Emergency Department with any worsening of symptoms, chest pain, nausea, vomiting, headache, or fevers. Referrals: [facility] [Provider Group] [facility] [Provider Group] Disposition: [facility] - Home Medications Comprehensive Discharge Medication List: Ambulatory Orders Aspirin 81 mg PO DAILY 09/06/17 Diltiazem Cd [Cardizem Cd -] 180 mg PO DAILY 09/06/17 Furosemide [Lasix -] 80 mg PO AM 09/06/17 Metoprolol Succinate [Toprol XL -] 100 mg PO BID 09/06/17 Potassium Chloride [K-Dur -] 20 meq PO DAILY 09/06/17 Pravastatin Sodium [Pravachol] 40 mg PO DAILY 09/06/17 Spironolactone [Aldactone -] 25 mg PO DAILY 09/06/17 Apixaban [Eliquis] 5 mg PO BID 09/07/17 Ergocalciferol [Vitamin D2] 50,000 unit PO Q7D@1000 10/27/18 Guaifenesin [Mucinex] 600 mg PO BID 10/27/18 Prednisone See Taper PO DAILY #9 tablet 11/04/18 This patient is new to me today: No Emergency Visit: No Critical Care patient: No - Discharge Referral Referred to [facility] No
[2018-11-04 18:14] VITALS: BP 142/77; PULSE 85; TEMP 98.1
== END 2018-11-04 19:28 | DRG 291 ==
LOC: JER 10:29 → JERBED 11:56 → J4S 10-28 14:28
PROVIDERS: ATTEND Internal Medicine
PROC: 3E0F7GC Introduction of Other Therapeutic Substance into Respiratory Tract, Via Natural or Artificial Opening (ICD-10-PCS; principal; 2018-10-27)
PROC: 5A09357 Assistance with Respiratory Ventilation, Less than 24 Consecutive Hours, Continuous Positive Airway Pressure (ICD-10-PCS; 2018-10-27)
DX: I11.0 Hypertensive heart disease with heart failure (principal); J18.9 Pneumonia, unspecified organism; J96.01 Acute respiratory failure with hypoxia; G93.41 Metabolic encephalopathy; E87.1 Hypo-osmolality and hyponatremia; J44.1 Chronic obstructive pulmonary disease with (acute) exacerbation; J98.11 Atelectasis; F06.2 Psychotic disorder with delusions due to known physiological condition; I50.33 Acute on chronic diastolic (congestive) heart failure; Z79.01 Long term (current) use of anticoagulants; I27.20 Pulmonary hypertension, unspecified; I69.321 Dysphasia following cerebral infarction; I69.322 Dysarthria following cerebral infarction; I48.2 Chronic atrial fibrillation; E87.6 Hypokalemia; D51.9 Vitamin B12 deficiency anemia, unspecified; D50.9 Iron deficiency anemia, unspecified; E56.1 Deficiency of vitamin K; R56.9 Unspecified convulsions; E66.9 Obesity, unspecified; Z68.39 Body mass index [BMI] 39.0-39.9, adult; K57.30 Diverticulosis of large intestine without perforation or abscess without bleeding; I25.2 Old myocardial infarction; E78.5 Hyperlipidemia, unspecified; Z86.711 Personal history of pulmonary embolism; I25.10 Atherosclerotic heart disease of native coronary artery without angina pectoris; T38.0X5A Adverse effect of glucocorticoids and synthetic analogues, initial encounter; Z96.653 Presence of artificial knee joint, bilateral
CPT/HCPCS: 36415; 36600; 71045-TC-FY; 71250-TC; 80048; 80053; 82803; 83735; 83880; 84484; 85025; 85027; 85384; 85610; 85730; 87040; 87804; 93005; 93010; 93306-TC; 94010; 94640; 94660; 94761; 97116-GP; 97161-GP; 99284-25

== ENCOUNTER 2018-11-07 16:08 | Inpatient (IN) | payer OTHER ==
--- NOTE | 2018-11-07 16:47 | PDOC ---
History of Present Illness - General Chief Complaint: Pain, Acute Stated Complaint: ABD PAIN Time Seen by Provider: 11/07/18 16:46 - History of Present Illness Initial Comments: 11/07/18 17:21 HPI: The patient is an 87 y/o female with history of HTN, HLD, [place], Afib on eliquis, CVA, PE, partial colectomy recently DCd to SNF after being treated for acute respiratory failure 2/2 PNA and CHF exacerbation presenting from SNF for further evaluation of possible ileus. Patient has not had a bowel movement since discharge 3 days ago, however, family and patient aid cannot recall last time patient had BM. Patient with some baseline dementia and cannot recall last time BM either. Per daughter, imaging performed with no stool burden and ?signs of ileus vs bowel obstruction. Patient however is able to tolerate solid and liquid PO, is passing gas, and denies no abdominal pain. Patient has no complaints at all. At SNF, patient received enemas, suppositories, and mag citrate with no BM. Patient has no fever, chills, nausea, emesis, chest pain, SOB, dysuria PMHx: as noted above ROS: as noted SHx: Denies Etoh, IVDA, tobacco use Allergies: NKDA Past History - Past Medical History Allergies/Adverse Reactions: Allergies Allergy/AdvReac Type Severity Reaction Status Date / Time No Known Allergies Allergy Verified 11/07/18 17:29 Home Medications: Ambulatory Orders Aspirin 81 mg PO DAILY 09/06/17 Diltiazem Cd [Cardizem Cd -] 180 mg PO DAILY 09/06/17 Furosemide [Lasix -] 80 mg PO AM 09/06/17 Metoprolol Succinate [Toprol XL -] 100 mg PO BID 09/06/17 Potassium Chloride [K-Dur -] 20 meq PO DAILY 09/06/17 Pravastatin Sodium [Pravachol] 40 mg PO DAILY 09/06/17 Spironolactone [Aldactone -] 25 mg PO DAILY 09/06/17 Apixaban [Eliquis] 5 mg PO BID 09/07/17 Ergocalciferol [Vitamin D2] 50,000 unit PO Q7D@1000 10/27/18 Guaifenesin [Mucinex] 600 mg PO BID 10/27/18 Cardiac Disorders: Yes (a fib,PE) CVA: Yes COPD: No GI Disorders: Yes (diverticulitis) HTN: Yes Hypercholesterolemia: Yes Seizures: Yes - Surgical History Cardiac Surgery: Yes (colon resection) - Suicide/Smoking/Psychosocial Hx Smoking History: Never smoked Have you smoked in the past 12 months: No Information on smoking cessation initiated: No Hx Alcohol Use: No Drug/Substance Use Hx: No Substance Use Type: None Hx Substance Use Treatment: No Review of Systems - Review of Systems Comments:: 11/07/18 17:29 ROS: GENERAL/CONSTITUTIONAL: No fever or chills. No weakness. HEAD, EYES, EARS, NOSE AND THROAT: No change in vision. No ear pain or discharge. No sore throat. CARDIOVASCULAR: No chest pain or shortness of breath RESPIRATORY: No cough GASTROINTESTINAL: +constipation +distention; No nausea, vomiting, diarrhea . GENITOURINARY: No dysuria, frequency, or change in urination. MUSCULOSKELETAL: No joint or muscle swelling or pain. No neck or back pain. SKIN: No rash NEUROLOGIC: No headache, vertigo, loss of consciousness, or change in strength/ sensation. ENDOCRINE: No increased thirst. No abnormal weight change HEMATOLOGIC/LYMPHATIC: +clot hx +bruises ALLERGIC/IMMUNOLOGIC: No hives or skin allergy. *Physical Exam - Vital Signs Last Vital Signs Temp Pulse Resp BP Pulse Ox 97.3 F L 84 18 116/65 92 L 11/07/18 16:15 11/07/18 16:15 11/07/18 16:15 11/07/18 16:15 11/07/18 16:15 - Physical Exam Comments: 11/07/18 17:48 PE: GENERAL: Awake, alert, in no acute distress HEAD: No signs of trauma, normocephalic, atraumatic EYES: PERRLA, EOMI, sclera anicteric, conjunctiva clear ENT: Auricles normal inspection, hearing grossly normal, nares patent, oropharynx clear without exudates. Moist mucosa NECK: Normal ROM, supple, no lymphadenopathy, JVD, or masses LUNGS: No distress, speaks full sentences, clear to auscultation bilaterally HEART: Regular rate and rhythm, normal S1 and S2, no murmurs, rubs or gallops, peripheral pulses normal and equal bilaterally. ABDOMEN: obese, soft, tympanitic to percussion in epigastric and LUQ, no TTP, no guarding or rebound, active bowel sounds with tinkling in epigastric and LUQ regions EXTREMITIES : Normal inspection, Normal range of motion, no edema. No clubbing or cyanosis. NEUROLOGICAL: Cranial nerves II through XII grossly intact. Normal speech, normal gait, no focal sensorimotor deficits SKIN: Warm, Dry, large LUE ecchymosis ED Treatment Course - LABORATORY CBC & Chemistry Diagram: 11/07/18 18:00 11/07/18 18:00 Medical Decision Making - Medical Decision Making 11/07/18 17:50 87 y/o female with history of HTN, HLD, VT, CHF, Afib on eliquis, CVA, PE, partial colectomy recently DCd to SNF after being treated for acute respiratory failure 2/2 PNA and CHF exacerbation presenting from SNF for further evaluation of ileus vs SBO. She has had no BM and has abdominal distention, but is tolerating diet, passing gas. -CBC, CMP -CT Abd/pel noncontrast -1L NS bolus 11/07/18 19:12 -CT abd/pel read pending -patient is endorsed to Dr Cano to followup labs and final read of CT abd/pel for presumed diagnosis of SBO; further management to follow *DC/Admit/Observation/Transfer Diagnosis at time of Disposition: Bowel obstruction Qualifiers: Intestinal obstruction type: unspecified Intestinal obstruction extent: partial Qualified Code(s): K56.600 - Partial intestinal obstruction, unspecified as to cause - Referrals - Patient Instructions - Post Discharge Activity
[2018-11-07] MEDS ORDERED: SODIUM CHLORIDE 1,000 ML IV STA (18:08)
[2018-11-07 18:22] LABS: BASO % 0.3 % (0-2.0); HEMATOCRIT 32.7 % (32.4-45.2); HEMOGLOBIN 10.3 GM/dL (10.7-15.3); LYMPH % 2.5 % (8-40); MCH 27.1 pg (25.7-33.7); MCHC 31.7 g/dl (32.0-36.0); MEAN CELL VOLUME 85.5 fl (80-96); MEAN PLT VOLUME 8.5 fl (7.5-11.1); MONO % 1.6 % (3.8-10.2); NEUT % 95.6 % (42.8-82.8); PLATELET COUNT 409 K/MM3 (134-434); RBC 3.82 M/mm3 (3.60-5.2); RDW 19.3 % (11.6-15.6); WHITE BLOOD COUNT 21.7 K/mm3 (4.0-10.0)
--- NOTE | 2018-11-07 18:28 | PDOC ---
Documentation entered by Danitza Covarrubias SCRIBE, acting as scribe for Jackie Diego MD. Jackie Diego MD: This documentation has been prepared by the Marci horne Adrianna, SCRIBE, under my direction and personally reviewed by me in its entirety. I confirm that the documentation accurately reflects all work, treatment, procedures, and medical decision making performed by me. Attending Attestation - Resident Resident Name: RichardJustoronald - ED Attending Attestation I have performed the following: I have examined & evaluated the patient, The case was reviewed & discussed with the resident, I agree w/resident's findings & plan, Exceptions are as noted - HPI HPI: The patient is an 87 year old female, with a significant PMH of HTN, HLD, [place] ( 2006), Afib (on Eliquis), PE (2006 secondary to knee surgery), CHF, partial colectomy, CVA (09/2018), diverticulitis, SBO, and dementia, who presents to the ED from SNF for evaluation of possible SBO vs. ileus. Patient was recently discharged for acute respiratory failure secondary to pneumonia and CHF exacerbation. Patient has not had a bowel movement for 3 days. She does endorse flatulence, and is able to eat/drink. Patient is a poor historian secondary to dementia. Denies fever, chills, nausea, vomit, chest pain, SOB, and abdominal pain. Allergies: NKA, NKDA Surgical History: Partial colectomy Social History: None reported PCP: Dr. Groves 11/07/18 17:35 - Physicial Exam PE: GENERAL: Awake, alert, oriented to person and place, in no acute distress HEAD: No signs of trauma EYES: PERRLA, EOMI, sclera anicteric, conjunctiva clear ENT: Auricles normal inspection, hearing grossly normal, nares patent, oropharynx clear without exudates. Dry mucosa NECK: Normal ROM, supple, no lymphadenopathy, JVD, or masses LUNGS: Breath sounds equal, clear to auscultation bilaterally. No wheezes, and no crackles HEART: Regular rate and rhythm, normal S1 and S2, no murmurs, rubs or gallops ABDOMEN: Soft, +distension, tympanitic to percussion, hyperactive/high-pitched bowel sounds. No guarding, no rebound. No masses EXTREMITIES: Normal range of motion, no edema. No clubbing or cyanosis. No cords, erythema, or tenderness NEUROLOGICAL: Cranial nerves II through XII grossly intact. Motor and sensation intact SKIN: Warm, Dry, normal turgor, no rashes or lesions noted. - Medical Decision Making 11/07/18 18:27 Exam is concerning for poss SBO. Patient had elevated BUN/Creatinine this morning at [facility] per verbal report from patient's physician. Will obtain CT without IV contrast. Will not give PO contrast based on high BMI. 11/07/18 19:00 Pt signed out to Dr. Simmons at shift change. F/u CT results, then disposition depending on CT findings.
[2018-11-07 18:38] LABS: ALBUMIN 2.8 g/dl (3.4-5.0); BILIRUBIN,TOTAL 0.8 mg/dL (0.2-1); BLOOD UREA NITROGEN 69.8 mg/dL (7-18); CALCIUM 9.3 mg/dL (8.5-10.1); CREATININE 1.5 mg/dL (0.55-1.3); POTASSIUM 4.7 mmol/L (3.5-5.1); TOT PROT 6.2 g/dl (6.4-8.2)
[2018-11-07 19:16] LABS: PLATELET ESTIMATE ADEQUATE
--- NOTE | 2018-11-07 20:35 | PDOC ---
*Physical Exam - Vital Signs Last Vital Signs Temp Pulse Resp BP Pulse Ox 97.3 F L 84 18 116/65 92 L 11/07/18 16:15 11/07/18 16:15 11/07/18 16:15 11/07/18 16:15 11/07/18 16:15 - Physical Exam General Appearance: Yes: Nourished, Appropriately Dressed, Obese. No: Apparent Distress HEENT: positive: Normal Voice, Symmetrical, Hearing Decreased. negative: Scleral Icterus (R), Scleral Icterus (L), Rhinorrhea Neck: positive: Supple. negative: Tender Respiratory/Chest: positive: Lungs Clear, Normal Breath Sounds. negative: Chest Tender, Respiratory Distress, Decreased Breath Sounds (concern for prior PNA admission), Crackles, Rales, Rhonchi Cardiovascular: positive: Regular Rhythm, Regular Rate Gastrointestinal/Abdominal: positive: Increased Bowel Sounds, Distended. negative: Tender, Pulsatile Mass, Guarding, Rebound, Hepatomegaly Musculoskeletal: positive: Normal Inspection Extremity: positive: Normal Inspection, Normal Range of Motion Integumentary: positive: Normal Color, Dry, Warm, Ecchymosis (L upper arm lateral surface) Neurologic: positive: Fully Oriented, Alert, Normal Mood/Affect, Normal Response ED Treatment Course - LABORATORY CBC & Chemistry Diagram: 11/07/18 18:00 11/07/18 18:00 - ADDITIONAL ORDERS Additional order review: Laboratory Results 11/07/18 18:00 Sodium 141 Potassium 4.7 Chloride 106 Carbon Dioxide 30 Anion Gap 5 L BUN 69.8 H Creatinine 1.5 H Est GFR (CKD-EPI)AfAm 36.18 Est GFR (CKD-EPI)NonAf 31.22 Random Glucose 157 H Calcium 9.3 Total Bilirubin 0.8 AST 29 ALT 34 Alkaline Phosphatase 82 Total Protein 6.2 L Albumin 2.8 L 11/07/18 18:00 RBC 3.82 MCV 85.5 MCHC 31.7 L RDW 19.3 H MPV 8.5 D Neutrophils % 95.6 H Lymphocytes % 2.5 L D Monocytes % 1.6 L Eosinophils % 0.0 Basophils % 0.3 - Medications Given in the ED: ED Medications Discontinued Medications Generic Name Dose Route Start Last Admin Trade Name Freq PRN Reason Stop Dose Admin Sodium Chloride 1,000 mls @ 1,000 mls/hr 11/07/18 18:08 11/07/18 18:50 Normal Saline - IV 11/07/18 19:07 1,000 mls/hr ASDIR STA Administration Medical Decision Making - Medical Decision Making 11/07/18 20:32 Patient was signed out to me by Dr. Ramos. 87F with Hx diverticulitis, prior SBO, prior partial colectomy for unspecified reason, presents with ileus vs. SBO Admitted last week for tx for PNA Has not had BM for ~[address] w/o contrast shows distal SBO with unknown transition point WBC remarkable for count of 21 from 14 3 days prior, was receiving prednisone Will obtain CXR and UA Dr. Gabriel rojas for surgery Pt admitted to Dr. Coronel 11/07/18 20:39 Case discussed with who will see the pt on an inpatient basis NTD acutely *DC/Admit/Observation/Transfer Diagnosis at time of Disposition: Bowel obstruction Qualifiers: Intestinal obstruction type: unspecified Intestinal obstruction extent: partial Qualified Code(s): K56.600 - Partial intestinal obstruction, unspecified as to cause - Discharge Dispostion Condition at time of disposition: Guarded Decision to Admit order: Yes - Referrals - Patient Instructions - Post Discharge Activity
[2018-11-07] MEDS ORDERED: LACTATED RINGERS SOLUTION 1,000 ML IV SCH ×2 (22:15→22:44)
--- NOTE | 2018-11-07 22:27 | HP ---
CHIEF COMPLAINT: Abdominal Pain PCP: Cindy Groves MD HISTORY OF PRESENT ILLNESS: History was gathered from daughter and son of patient. 87 year old F with PMH significant for HTN, HLD, MT, Afib, CHF, partial colectomy, diverticulitis, SBO, CVA, and dementia who presents today for small bowel obstruction. Patient was discharged from [facility] on 11/04 to [facility] after recovery from b/l pneumonia. Was noted to be constipated during last week of admission at [facility].While at the nursing facility she did not have any bowel movements. Patient denies abdominal pain and nausea. Patient was eating sporadically throughout stay at [facility], and had pancakes for breakfast today AM. Patient was noted to be increasingly distended today. Was given enema, suppository, mag citrate without bowel movement. Patient denies any fever, chills, night sweats. ER course was notable for: (1) CT scan was done with findings significant for moderate dilatation of small bowel loops with air fluid level suggestive of distal small bowel obstruction. (2)Was given 1 L bolus of NS Recent Travel: Denies PAST MEDICAL HISTORY: Hypertension, Hyperlipidemia, Afib (managed with apixaban), Myocardial Infarction and Pulmonary Embolus (post-op 2006), CHF (EF 55-60%), CVA with right sided residual deficit including difficulty walking and speaking, diverticulitis (09/2017) and previous SBO (09/2017). PAST SURGICAL HISTORY: Partial colectomy in 2001 Right knee replacement in 2006. Social History: Smoking: None Alcohol: None Drugs: None Family History: Father passed of MT at age 84 Mother passed of CVA at age 95 Allergies No Known Allergies Allergy (Verified 11/07/18 17:29) HOME MEDICATIONS: Home Medications Medication Instructions Recorded Aspirin 81 mg PO DAILY 09/06/17 Diltiazem Cd [Cardizem Cd -] 180 mg PO DAILY 09/06/17 Furosemide [Lasix -] 40 mg PO BID 09/06/17 Metoprolol Succinate [Toprol XL -] 100 mg PO BID 09/06/17 Potassium Chloride [K-Dur -] 20 meq PO DAILY 09/06/17 Pravastatin Sodium [Pravachol] 40 mg PO DAILY 09/06/17 Spironolactone [Aldactone -] 25 mg PO DAILY 09/06/17 Apixaban [Eliquis] 5 mg PO BID 09/07/17 Ergocalciferol [Vitamin D2] 50,000 unit PO Q7D@1000 10/27/18 Guaifenesin [Mucinex] 600 mg PO BID 10/27/18 REVIEW OF SYSTEMS CONSTITUTIONAL: No fever, chills, diaphoresis, CARDIOVASCULAR: No chest pain or palpitations. RESPIRATORY: Non productive cough, denies shortness of breath, dyspnea with exertion, wheezing GASTROINTESTINAL: denies abdominal pain, nausea, vomiting, diarrhea. GENITOURINARY: difficulty urinating SKIN: bruising present on arm, and bruising on right hip and buttock. HEMATOLOGIC/IMMUNOLOGIC: family noted that patients WBC is usually in the teens as per last hospital visit. NEUROLOGIC: Right sided deficits from prior CVA, decreased mobility on the right side. PHYSICAL EXAMINATION Vital Signs - 24 hr 11/07/18 16:15 Temperature 97.3 F L Pulse Rate 84 Respiratory 18 Rate Blood Pressure 116/65 O2 Sat by Pulse 92 L Oximetry (%) GENERAL: Awake, alert, and oriented to place. HEAD: Normal with no signs of trauma. LUNGS: Breath sounds equal, clear to auscultation bilaterally. No wheezes, and no crackles. No accessory muscle use. HEART: Regular rate and rhythm, normal S1 and S2 without murmur, rub or gallop. ABDOMEN: Distended, normactive bowel sounds, non-tender. No hepatosplenomegaly. SKIN: Warm, dry, normal turgor, bruising noted on left arm. Laboratory Results - last 24 hr 11/07/18 11/07/18 18:00 18:00 WBC 21.7 H RBC 3.82 Hgb 10.3 L Hct 32.7 MCV 85.5 MCH 27.1 MCHC 31.7 L RDW 19.3 H Plt Count 409 MPV 8.5 D Absolute Neuts (auto) 20.8 H Total Counted 100 Neutrophils % 95.6 H Neutrophils % (Manual) 94.0 H Band Neutrophils % 1.0 Lymphocytes % 2.5 L D Lymphocytes % (Manual) 2.0 L D Monocytes % 1.6 L Monocytes % (Manual) 3 L D Eosinophils % 0.0 Basophils % 0.3 Nucleated RBC % 0 Platelet Estimate Adequate Platelet Comment No clumping noted Sodium 141 Potassium 4.7 Chloride 106 Carbon Dioxide 30 Anion Gap 5 L BUN 69.8 H Creatinine 1.5 H Est GFR (CKD-EPI)AfAm 36.18 Est GFR (CKD-EPI)NonAf 31.22 Random Glucose 157 H Calcium 9.3 Total Bilirubin 0.8 AST 29 ALT 34 Alkaline Phosphatase 82 Total Protein 6.2 L Albumin 2.8 L ASSESSMENT/PLAN: 87 year old female with PMH of HTN, HLD, partial colectomy, diverticulitis, and SBO who presents today with new small bowel obstruction. 1) SBO: Surgical Consult Dr. Ward NPO except with meds. If worsening clinical status will convert to IV formulations. Abdominal X-Ray in AM CBC in morning CMP in morning Magnesium in morning Phosphorus in morning LR @60 ml/hr Protonix 40 mg IV Qdaily 2) Leukocytosis: Marked leukocytosis with (95% neutrophil) compared to baseline Blood culture with morning labs Follow up U/A Follow up urine culture Was given 600 mg zosyn, follow up. Monitor hemodynamics 2) CHF NYHA Unknown: Unable to assess current NYHA status due to bed bound status Start home medications in AM Spironolactone 25 mg PO Daily Pravastatin 40 m PO Daily Metropolol Succinate 100 mg PO BID Furosemide 40 mg PO BID Diltiazem 180 mg PO Daily Aspirin 81 mg PO Daily 3)Atrial Fibrillation Continue Apixaban 5mg PO BID 4) Continued metabolic encephalopathy Minimize use of ativan Complete tapering of prednisone Neuro checks 5) History of CAD Aspirin 81 mg PO Daily Pravastatin 40 m PO Daily Metropolol Succinate 100 mg PO BID 6)History of PE Stable continue Eliquis 7) COPD Exacerbation recovery: Complete prednisone tapering. O2 Nasal Cannula 2 Lpm. 8)Right sided hydronephrosis Follow up with urology as needed DVT Prophylaxis: Patient anticoagulated with apixaban 5 mg PO BID. Dispo: Admit to floors F: LR @60 ml/hr E: Monitor BMP N: NPO except meds Visit type - Emergency Visit Emergency Visit: Yes ED Registration Date: 11/07/18 Care time: The patient presented to the Emergency Department on the above date and was hospitalized for further evaluation of their emergent condition. - New Patient This patient is new to me today: Yes Date on this admission: 11/08/18 - Critical Care Critical Care patient: No
--- NOTE | 2018-11-07 22:44 | PN ---
Teaching Attending Note Name of Resident: Salena Ruelas ATTENDING PHYSICIAN STATEMENT I saw and evaluated the patient. I reviewed the resident's note and discussed the case with the resident. I agree with the resident's findings and plan as documented. SUBJECTIVE: Seen and examined; please refer to resident note for further historical information. Briefly, this is a 87 y/o female presenting to the ER with a CC of abdominal distention and constipation. She is afebrile and hemodynamically stable. She was recently discharged 11/04. She was seen on her last admission for acute mixed respiratory failure 2/2 PNA/D-CHF and was noted to have COPD exacerbation. She was diagnosed with an acute metabolic encephalopathy at that time due to steroids, hypercapnia, and ativan; her children say she is still off her baseline. Has not had formed BM in several days; overflow noted initially but has not improved for over a week. Some poor PO intake. Noted to have distal SBO on imaging done in ER; Dr. Rios consulted. She had SBO in the past 2/2 diverticulitis complicated by SBO and is s/p R-hemicollectomy which is seen in the imaging alongside diverticulosis without diverticulitis. Should mention transition point isn't clear on this examination. 10 sys ROS done and negative aside from HPI PMH, PSH, FH, SH reviewed Home Medications Medication Instructions Recorded Aspirin 81 mg PO DAILY 09/06/17 Diltiazem Cd [Cardizem Cd -] 180 mg PO DAILY 09/06/17 Furosemide [Lasix -] 40 mg PO BID 09/06/17 Metoprolol Succinate [Toprol XL -] 100 mg PO BID 09/06/17 Potassium Chloride [K-Dur -] 20 meq PO DAILY 09/06/17 Pravastatin Sodium [Pravachol] 40 mg PO DAILY 09/06/17 Spironolactone [Aldactone -] 25 mg PO DAILY 09/06/17 Apixaban [Eliquis] 5 mg PO BID 09/07/17 Ergocalciferol [Vitamin D2] 50,000 unit PO Q7D@1000 10/27/18 Guaifenesin [Mucinex] 600 mg PO BID 10/27/18 OBJECTIVE: VS, labs, imaging reviewed NAD, AAOx1-2, resting comfortably in bed NC AT EOMI PERRLA Lungs dificult to auscultate 2/2 habitus; w/ sym exp RRR s1/2 no mgr NT, mild distention but obese, +BS but reduced and more high pitched CN2-12 wnl, no fnd Confused, orientated to self and knows she is in a hospital, somewhat tangential EKG reviewed CT reviewed EKG with marked R-hydro, SBO with no clear transition point. ASSESSMENT AND PLAN: Patient presents with partial SBO 1) Partial SBO -Prior history noted; ER called Dr. Rios; NPO, pain control, serial abdominal exams; PRN antiemetics if required but no n/v right now. -No NGT inserted for now; will do if clinical condition worsens -Careful fluid management given D-CHF; she has had very poor PO intake since going to the facility so stands to logic she would be a little dry, but with recent exacerbation would use caution. 2) Leukocytosis -Could be reactive to #1; no fevers and the low temps were axillary. Check ESR/ CRP, followup cultures, check UA and Ucx. Got empiric abx; will followup. CXR pending but no pulm sx; would expect recent pneumonia to show up on it. 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 Very gentle hydration and recheck in AM. Avoiding nephrotoxic agents. Monitor lytes and urine output. 4) D-CHF, NYHA staging unknown -Recently was in exacerbation; on DC med list states Lasix is 80 qAM; she is also on aldactone and MS 100 BID. Will hold lasix for tomorrow and monitor fluid status carefully as she is NPO and is likely hypovolemic from poor PO, and we will take extreme caution with fluids. Not on MATTHEW/ARB but no HFrEF present. Echo reviewed. She should keep scheduled cardiology followup. 5) Recent COPD exacerbation -Continue home inhalers, pred taper will complete. Needs OP PFTs, etc. Follows with pulmonary. 6) P-AF (Elevated CV2 score) -On eliquis; continue. Continue metoprolol, cardizem. Should she worsen with SBO and need a strict NPO convert these to IV formulations 7) Hx CAD -Continue ASA, BB, Statin. No documentation of recent stents and asx. 8) Hx PE -Stable; continue eliquis. 9) Morbid obesity (BMI >35) -OP sleep study (especially with Afib hx) and adoption counselor prior to leaving 10) Continued toxic metabolic encephalopathy -Family is concerned about the continued symptoms as they say she has not returned to baseline from her last hospitaliztion. We will place her on neuro checks overnight and minimize the use of any psych drugs. Anticipate sundowning and intervene with nonchemical means. Consider further workup in AM depending on if any improvement. 11) R-hydronephrosis -R-UPJ anatomical issue previously described; FU w/ uro PRN
[2018-11-07] MEDS: LACTATED RINGERS SOLUTION 1,000 ML IV SCH (23:15)
[2018-11-08 01:47] VITALS: BMI 36.7
[2018-11-08] MEDS ORDERED: APIXABAN 5 MG TABLET PO ONE (01:54)
[2018-11-08 02:29] LABS: URINE APPEARANCE CLEAR; URINE BILIRUBIN NEGATIVE (NEGATIVE); URINE COLOR YELLOW; URINE GLUCOSE (UA) NEGATIVE (NEGATIVE); URINE KETONE NEGATIVE (NEGATIVE); URINE LEUK ESTERASE NEGATIVE (NEGATIVE); URINE NITRITE NEGATIVE (NEGATIVE); URINE PROTEIN NEGATIVE (NEGATIVE); URINE UROBILINOGEN 0.2 mg/dL (0.2-1.0)
[2018-11-08] MEDS ORDERED: PIPERACILLIN/TAZOB 3.375 GM 3.375 GM in DEXTROSE 5%-WATER - 50 ML IVPB ONE (06:11)
[2018-11-08 07:33] LABS: BASO % 0.2 % (0-2.0); EOS % 0.1 % (0-4.5); HEMATOCRIT 27.9 % (32.4-45.2); HEMOGLOBIN 8.9 GM/dL (10.7-15.3); LYMPH % 2.6 % (8-40); MCH 27.4 pg (25.7-33.7); MCHC 31.8 g/dl (32.0-36.0); MEAN CELL VOLUME 86.3 fl (80-96); MEAN PLT VOLUME 8.3 fl (7.5-11.1); MONO % 2.7 % (3.8-10.2); NEUT % 94.4 % (42.8-82.8); PLATELET COUNT 346 K/MM3 (134-434); RBC 3.24 M/mm3 (3.60-5.2); RDW 19.9 % (11.6-15.6); WHITE BLOOD COUNT 17.2 K/mm3 (4.0-10.0)
[2018-11-08] MEDS ORDERED: PIPERACILLIN/TAZOBACTAM 3.375 GM VIAL IVPB ONE (07:53)
[2018-11-08] MEDS ORDERED: DEXTROSE 5%-WATER - 50 ML IVPB ONE (07:54)
[2018-11-08 08:04] LABS: INR 2.28 (0.83-1.09); PROTHROMBIN TIME (PATIENT) 27.1 SEC (9.7-13.0)
[2018-11-08 08:07] LABS: ACTIVATED PTT 26.1 SECONDS (25.2-36.5)
[2018-11-08 08:20] LABS: ALBUMIN 2.5 g/dl (3.4-5.0); BILIRUBIN,TOTAL 0.6 mg/dL (0.2-1); BLOOD UREA NITROGEN 64.5 mg/dL (7-18); CALCIUM 8.6 mg/dL (8.5-10.1); CREATININE 1.3 mg/dL (0.55-1.3); MAGNESIUM 2.9 mg/dL (1.8-2.4); PHOSPHOROUS 3.4 mg/dL (2.5-4.9); POTASSIUM 3.7 mmol/L (3.5-5.1); TOT PROT 5.4 g/dl (6.4-8.2)
[2018-11-08] MEDS ORDERED: APIXABAN 5 MG TABLET PO SCH (10:00)
[2018-11-08] MEDS ORDERED: SPIRONOLACTONE 25 MG TABLET (FP) PO SCH (10:00)
[2018-11-08 10:44] LABS: ANISOCYTOSIS 1+; MACROCYTOSIS 0; PLATELET ESTIMATE NORMAL
[2018-11-08] MEDS: PANTOPRAZOLE SODIUM 40 MG VIAL IVPUSH SCH (11:04)
[2018-11-08] MEDS: ASPIRIN 81 MG CHEWABLE TABLETS PO SCH (11:05)
--- NOTE | 2018-11-08 12:24 | CONSULT ---
Consult Consult Specialty:: General Surgery Reason for Consultation:: SBO - History of Present Illness Chief Complaint: Abdominal Pain History of Present Illness: 86 yo female PMH A-fib (on eliquis), Epilepsy, HTN, and diverticulosis, presented with nausea, abdominal distention, and diarrhea over the last 3 days. She denies vomiting in the past 3 days. She did have a single episode of emesis This past . She is haing BM and flatus. She currently does not have abdominal pain but states she had LLQ pain this past weekend. She noticed an increased in the size of her abdomen. She says she's had very poor oral intake in the last 3 days. we were asked to assess. - History Source History Provided By: Patient, Medical Record Limitations to Obtaining History: No Limitations - Past Medical History Cardio/Vascular: Yes: CHF, HTN, Hyperlipdemia Renal/: Yes: Other (mitch in the past) - Alcohol/Substance Use Hx Alcohol Use: No - Smoking History Smoking history: Never smoked Have you smoked in the past 12 months: No Home Medications - Allergies Allergies/Adverse Reactions: Allergies Allergy/AdvReac Type Severity Reaction Status Date / Time No Known Allergies Allergy Verified 11/07/18 17:29 - Home Medications Home Medications: Ambulatory Orders Aspirin 81 mg PO DAILY 09/06/17 Diltiazem Cd [Cardizem Cd -] 180 mg PO DAILY 09/06/17 Furosemide [Lasix -] 40 mg PO BID 09/06/17 Metoprolol Succinate [Toprol XL -] 100 mg PO BID 09/06/17 Potassium Chloride [K-Dur -] 20 meq PO DAILY 09/06/17 Pravastatin Sodium [Pravachol] 40 mg PO DAILY 09/06/17 Spironolactone [Aldactone -] 25 mg PO DAILY 09/06/17 Apixaban [Eliquis] 5 mg PO BID 09/07/17 Ergocalciferol [Vitamin D2] 50,000 unit PO Q7D@1000 10/27/18 Guaifenesin [Mucinex] 600 mg PO BID 10/27/18 Review of Systems - Review of Systems Constitutional: denies: Chills, Fever Eyes: denies: Blind Spots, Recent Change in Vision HENT: denies: Difficult Swallowing, Throat Pain Cardiovascular: denies: Chest Pain, Palpitations Respiratory: denies: Cough, SOB Gastrointestinal: reports: Abdominal Pain, Bloating Genitourinary: denies: Discharge, Dysuria Breasts: reports: No Symptoms Reported. denies: Pain Musculoskeletal: denies: Extremity Pain, Muscle Pain Integumentary: denies: Bruising, Lesions, Lump Neurological: denies: Seizure, Syncope Endocrine: denies: Unexplained Weight Gain, Unexplained Weight Loss Hematology/Lymphatic: denies: Easily Bruised, Excessive Bleeding Psychiatric: denies: Anxiety, Depression Physical Exam Vital Signs: Vital Signs Temperature 97.8 F 11/08/18 09:00 Pulse Rate 72 11/08/18 09:00 Respiratory Rate 20 11/08/18 09:00 Blood Pressure 100/43 L 11/08/18 09:00 O2 Sat by Pulse Oximetry (%) 98 11/08/18 01:51 Constitutional: Yes: Well Nourished, No Distress, Calm, Obese Eyes: Yes: Conjunctiva Clear, EOM Intact HENT: Yes: Atraumatic, Normocephalic Neck: Yes: Supple, Trachea Midline Cardiovascular: Yes: Pulse Irregular, S1, S2 Gastrointestinal: Yes: Normal Bowel Sounds, Soft, Abdomen, Obese. No: Distention, Palpable Mass, Tenderness, Tenderness, Epigastrium, Tenderness, Rebound ...Rectal Exam: Yes: Sphincter Tone Normal. No: Mass Renal/: No: CVA Tenderness - Left, CVA Tenderness - Right Breast(s): No: Mass, Nipple Inversion, Skin Changes Musculoskeletal: No: Muscle Pain, Muscle Weakness Extremities: No: Cool, Cyanosis Edema: No Peripheral Pulses WNL: Yes Integumentary: No: Jaundice, Rash, Skin Tear Neurological: Yes: Alert, Oriented Psychiatric: Yes: Alert, Oriented Labs: CBC, BMP 11/08/18 07:04 11/08/18 07:04 Imaging - Results X-ray: Report Reviewed, Image Reviewed Cat Scan: Report Reviewed, Image Reviewed Problem List - Problems (1) Bowel obstruction Assessment/Plan: 87yo female with and obstructive pattern on imaging but no clinical evidence of intestinal instruction. No vomiting, Passing BM and flatus, NO acute surgical intervention is indicated. Clears and advance as tolerated resume eloquis enemas IVF resuscitation serial exams OOB and ambulate Recall as needed Thank you for the opportunity to participate in the care of this patient. Code(s): K56.609 - UNSP INTESTNL OBST, UNSP TO PARTIAL VERSUS COMPLETE OBST Qualifiers: Intestinal obstruction type: unspecified Intestinal obstruction extent: partial Qualified Code(s): K56.600 - Partial intestinal obstruction, unspecified as to cause (2) CHF exacerbation Code(s): I50.9 - HEART FAILURE, UNSPECIFIED (3) CVA (cerebral vascular accident) Code(s): I63.9 - CEREBRAL INFARCTION, UNSPECIFIED (4) Diverticulitis Code(s): K57.92 - DVTRCLI OF INTEST, PART UNSP, W/O PERF OR ABSCESS W/O BLEED (5) Pulmonary embolism Code(s): I26.99 - OTHER PULMONARY EMBOLISM WITHOUT ACUTE COR PULMONALE
[2018-11-08] MEDS ORDERED: BISACODYL 10 MG SUPP.RECT RC PRN (12:38)
--- NOTE | 2018-11-08 13:28 | PN ---
Physical Exam: SUBJECTIVE: Patient seen during rounds today. For findings of SBO on abd/pel CT she remains on IVF and NPO status. Pt denies dizziness, abdominal pain, fatigue , N/V/D. She passed a single BM today and is passing flatus and burping. BPt hypotensive to 88/39 with return to 105/50 after patient sat up in bed. Will continue to monitor vitals. OBJECTIVE: Vital Signs Period Temp Pulse Resp BP Sys/Kendall Pulse Ox Last 24 Hr 97.3 F-98.6 F 72-92 18-20 88-132/39-67 92-98 GENERAL: AOx3, NAD. HEENT: Hard of hearing b/l LUNGS: CTABL. No wheezing noted. HEART: Regular rate and rhythm, S1, S2 without murmurs ABDOMEN: Grossly distended. Soft, nontender, normoactive bowel sounds, no guarding, no rebound. No masses on palpation. EXTREMITIES: 2+ pulses, warm, well-perfused. 1+ pitting edema b/l NEUROLOGICAL: Normal speech. Good ROM in all extr b/l. PSYCH: Normal mood, normal affect. SKIN: Mildly dry skin on b/l LE. Left UE large hematoma noted Laboratory Results - last 24 hr Laboratory Last Values WBC 17.2 K/mm3 (4.0-10.0) H 11/08/18 07:04 RBC 3.24 M/mm3 (3.60-5.2) L 11/08/18 07:04 Hgb 8.9 GM/dL (10.7-15.3) L 11/08/18 07:04 Hct 27.9 % (32.4-45.2) L 11/08/18 07:04 MCV 86.3 fl (80-96) 11/08/18 07:04 MCH 27.4 pg (25.7-33.7) 11/08/18 07:04 MCHC 31.8 g/dl (32.0-36.0) L 11/08/18 07:04 RDW 19.9 % (11.6-15.6) H 11/08/18 07:04 Plt Count 346 K/MM3 (134-434) 11/08/18 07:04 MPV 8.3 fl (7.5-11.1) 11/08/18 07:04 Absolute Neuts (auto) 16.3 K/mm3 (1.5-8.0) H 11/08/18 07:04 Total Counted 100 11/07/18 18:00 Neutrophils % 94.4 % (42.8-82.8) H 11/08/18 07:04 Neutrophils % (Manual) 98.0 % (42.8-82.8) H 11/08/18 07:04 Band Neutrophils % 0.0 % 11/08/18 07:04 Lymphocytes % 2.6 % (8-40) L 11/08/18 07:04 Lymphocytes % (Manual) 0.0 % (8-40) L 11/08/18 07:04 Monocytes % 2.7 % (3.8-10.2) L 11/08/18 07:04 Monocytes % (Manual) 2 % (3.8-10.2) L 11/08/18 07:04 Eosinophils % 0.1 % (0-4.5) D 11/08/18 07:04 Eosinophils % (Manual) 0.0 % (0-4.5) 11/08/18 07:04 Basophils % 0.2 % (0-2.0) 11/08/18 07:04 Basophils % (Manual) 0.0 % (0-2.0) 11/08/18 07:04 Myelocytes % (Man) 0 % (0-2) 11/08/18 07:04 Promyelocytes % (Man) 0 % (0-2) 11/08/18 07:04 Blast Cells % (Manual) 0 % (0-0) 11/08/18 07:04 Nucleated RBC % 0 % (0-0) 11/08/18 07:04 Metamyelocytes 0 % (0-2) 11/08/18 07:04 Hypochromia 1+ 11/08/18 07:04 Platelet Estimate Normal 11/08/18 07:04 Platelet Comment No clumping noted 11/07/18 18:00 Polychromasia 0 11/08/18 07:04 Poikilocytosis 0 11/08/18 07:04 Anisocytosis 1+ 11/08/18 07:04 Microcytosis 1+ 11/08/18 07:04 Macrocytosis 0 11/08/18 07:04 ESR 20 mm/hr (0-30) 11/08/18 07:04 PT with INR 27.10 SEC (9.7-13.0) H 11/08/18 07:04 INR 2.28 (0.83-1.09) H 11/08/18 07:04 PTT (Actin FS) 26.1 SECONDS (25.2-36.5) 11/08/18 07:04 Sodium 143 mmol/L (136-145) 11/08/18 07:04 Potassium 3.7 mmol/L (3.5-5.1) 11/08/18 07:04 Chloride 108 mmol/L (98-107) H 11/08/18 07:04 Carbon Dioxide 30 mmol/L (21-32) 11/08/18 07:04 Anion Gap 5 MMOL/L (8-16) L 11/08/18 07:04 BUN 64.5 mg/dL (7-18) H 11/08/18 07:04 Creatinine 1.3 mg/dL (0.55-1.3) 11/08/18 07:04 Est GFR (CKD-EPI)AfAm 43.02 11/08/18 07:04 Est GFR (CKD-EPI)NonAf 37.12 11/08/18 07:04 Random Glucose 152 mg/dL (74-106) H 11/08/18 07:04 Lactic Acid 1.3 mmol/L (0.4-2.0) 11/07/18 00:50 Calcium 8.6 mg/dL (8.5-10.1) 11/08/18 07:04 Phosphorus 3.4 mg/dL (2.5-4.9) 11/08/18 07:04 Magnesium 2.9 mg/dL (1.8-2.4) H 11/08/18 07:04 Total Bilirubin 0.6 mg/dL (0.2-1) 11/08/18 07:04 AST 14 U/L (15-37) L 11/08/18 07:04 ALT 27 U/L (13-61) 11/08/18 07:04 Alkaline Phosphatase 72 U/L (45-117) 11/08/18 07:04 C-Reactive Protein 4.2 MG/DL (0.00-0.3) H 11/08/18 07:04 Total Protein 5.4 g/dl (6.4-8.2) L 11/08/18 07:04 Albumin 2.5 g/dl (3.4-5.0) L 11/08/18 07:04 Urine Color Yellow 11/07/18 01:30 Urine Appearance Clear 11/07/18 01:30 Urine pH 5.0 (5.0-8.0) 11/07/18 01:30 Ur Specific [place] 1.012 (1.010-1.035) 11/07/18 01:30 Urine Protein Negative (NEGATIVE) 11/07/18 01:30 Urine Glucose (UA) Negative (NEGATIVE) 11/07/18 01:30 Urine Ketones Negative (NEGATIVE) 11/07/18 01:30 Urine Blood Negative (NEGATIVE) 11/07/18 01:30 Urine Nitrite Negative (NEGATIVE) 11/07/18 01:30 Urine Bilirubin Negative (NEGATIVE) 11/07/18 01:30 Urine Urobilinogen 0.2 mg/dL (0.2-1.0) 11/07/18 01:30 Ur Leukocyte Esterase Negative (NEGATIVE) 11/07/18 01:30 BLood cultures pending Urine cultures pending Active Medications Generic Name Dose Route Start Last Admin Trade Name Freq PRN Reason Stop Dose Admin Aspirin 81 mg 11/08/18 10:00 11/08/18 11:05 Asa - PO 81 mg DAILY [facility] Administration Atorvastatin Calcium 10 mg 11/08/18 22:00 Lipitor - PO HS ANNA Bisacodyl 10 mg 11/08/18 12:38 Dulcolax Suppository - RC DAILY PRN CONSTIPATION Diltiazem HCl 180 mg 11/08/18 10:00 11/08/18 11:00 Cardizem Cd - PO Not Given DAILY [facility] Ergocalciferol 50,000 unit 11/15/18 10:00 Drisdol - PO Q7D@1000 ANNA Furosemide 40 mg 11/08/18 14:00 Lasix - PO BIDLASIX ANNA Guaifenesin 600 mg 11/08/18 22:00 Mucinex - PO BID ANNA Lactated Ringer's 1,000 mls @ 60 mls/hr 11/07/18 22:45 11/07/18 23:15 Lactated Ringers Solution IV 60 mls/hr ASDIR ANNA Administration Metoprolol Succinate 100 mg 11/08/18 10:00 11/08/18 11:00 Toprol Xl - PO Not Given BID ANNA Pantoprazole Sodium 40 mg 11/08/18 10:00 11/08/18 11:04 Protonix Iv IVPUSH 40 mg DAILY ANNA Administration Potassium Chloride 20 meq 11/09/18 10:00 K-Dur - PO DAILY ANNA Spironolactone 25 mg 11/08/18 10:00 11/08/18 11:00 Aldactone - PO Not Given DAILY ANNA Imagin/1 CXR: No change 11/07 Abd/ pel CT: Moderate dilation of small bowel loops- distal SBO w/ unclear transition point. Multiple gallstones present. 11/08 Abd XR: 2 views of the abdomen reveal degenerative changes, calcified gallstones, splenic artery calcification, aortic and iliac vascular calcifications and distended small bowel compatible with a small bowel obstruction. Similar findings were noted on CT from 11/07/2018. Free air is not seen. There is a large heart. Correlation recommended. (prior visit) 10/[address]: PNA (prior visit) 10/27 EKG: A-fib. Low voltage QRS. Nonspec T-wave abnormality. Cant r/o septal infarct. ASSESSMENT/PLAN: 87 y.o. F PMH significant for HTN, HLD, SD, AFib, CHF, partial colectomy, diverticulitis, SBO, CVA w/ rt sided residual weakness and dementia who presented after having been discharged from [facility] 11/04 to [facility] for b/l pneumonia (which has since resolved) for increasingly distended abdomen and constipation. Patient found to have SBO on abd CT. Resolving SBO being managed conservatively with CLD and IVF. Surgery (Dr. Ward) consulted on pt and plans to c/w current treatment plan. #Small bowel obstruction -Surgery (Dr. Ward) consulted: pt passed BM. Clear liquid diet. Enemas, IVF, serial exams, OOB & ambulate. -NPO except with meds. If worsening clinical status convert to IV formulations. -Abd XR done today -LR @60mL/ hr -Protonix 40mg IV QD #Resolving leukocytosis: -F/u blood cx & urine cx -S/p 600mg Zosyn -Morning CBC -Monitor vitals #CHF -Holding Lasix, Spironolactone, Metoprolol succinate, diltiazem d/t hypotension -Pravastatin 40mg PO daily -ASA 81 mg PO daily #A-fib, controlled -Apixaban 5mg PO BID -Holding metoprolol #Altered mental status -Daily neuro assessments -Pt completed prednisone course from last visit for PNA #FENA -LR 1,000 @60mL/hr -Monitor BMP -NPO except meds -Ambulation: Pt able to sit up in bed with assistance -Nasal cannula 2L O2 #GI PPX -Protonix 40mg IV QD #DVT Prophylaxis: Apixaban 5 mg PO BID #Dispo: SNF Visit type - Emergency Visit Emergency Visit: No - New Patient This patient is new to me today: No - Critical Care Critical Care patient: No
[2018-11-08] MEDS ORDERED: FUROSEMIDE 40 MG TABLET (FP) PO SCH (14:00)
--- NOTE | 2018-11-08 16:50 | PN ---
Teaching Attending Note Name of Resident: Paris Alas ATTENDING PHYSICIAN STATEMENT I saw and evaluated the patient. I reviewed the resident's note and discussed the case with the resident. I agree with the resident's findings and plan as documented. SUBJECTIVE: Denies abdominal discomfort, nausea, vomiting. Passing flatus and small BMs. No fever/chills. OBJECTIVE: Afebrile, Hemodynamically Stable. AAO x 3. Some dysarthria (chronic). Last Vital Signs Temp Pulse Resp BP Pulse Ox 97.8 F 72 20 105/50 L 98 11/08/18 09:00 11/08/18 09:00 11/08/18 09:00 11/08/18 14:38 11/08/18 09:00 HEENT - Atraumatic, Normocephalic. Heart - S1, S2, SM Lungs - decreased air entry at bases. Abdomen - soft, distended, non-tender. Extremities- chronic venous stasis/mild edema, no calf tenderness. Laboratory Results - last 24 hr 11/07/18 11/07/18 11/07/18 00:50 01:30 18:00 WBC 21.7 H RBC 3.82 Hgb 10.3 L Hct 32.7 MCV 85.5 MCH 27.1 MCHC 31.7 L RDW 19.3 H Plt Count 409 MPV 8.5 D Absolute Neuts (auto) 20.8 H Total Counted 100 Neutrophils % 95.6 H Neutrophils % (Manual) 94.0 H Band Neutrophils % 1.0 Lymphocytes % 2.5 L D Lymphocytes % (Manual) 2.0 L D Monocytes % 1.6 L Monocytes % (Manual) 3 L D Eosinophils % 0.0 Eosinophils % (Manual) Basophils % 0.3 Basophils % (Manual) Myelocytes % (Man) Promyelocytes % (Man) Blast Cells % (Manual) Nucleated RBC % 0 Metamyelocytes Hypochromia Platelet Estimate Adequate Platelet Comment No clumping noted Polychromasia Poikilocytosis Anisocytosis Microcytosis Macrocytosis ESR PT with INR INR PTT (Actin FS) Sodium Potassium Chloride Carbon Dioxide Anion Gap BUN Creatinine Est GFR (CKD-EPI)AfAm Est GFR (CKD-EPI)NonAf Random Glucose Lactic Acid 1.3 Calcium Phosphorus Magnesium Total Bilirubin AST ALT Alkaline Phosphatase C-Reactive Protein Total Protein Albumin Urine Color Yellow Urine Appearance Clear Urine pH 5.0 Ur Specific [place] 1.012 Urine Protein Negative Urine Glucose (UA) Negative Urine Ketones Negative Urine Blood Negative Urine Nitrite Negative Urine Bilirubin Negative Urine Urobilinogen 0.2 Ur Leukocyte Esterase Negative 11/07/18 11/08/18 11/08/18 18:00 07:04 07:04 WBC 17.2 H RBC 3.24 L Hgb 8.9 L Hct 27.9 L MCV 86.3 MCH 27.4 MCHC 31.8 L RDW 19.9 H Plt Count 346 MPV 8.3 Absolute Neuts (auto) 16.3 H Total Counted Neutrophils % 94.4 H Neutrophils % (Manual) 98.0 H Band Neutrophils % 0.0 Lymphocytes % 2.6 L Lymphocytes % (Manual) 0.0 L Monocytes % 2.7 L Monocytes % (Manual) 2 L Eosinophils % 0.1 D Eosinophils % (Manual) 0.0 Basophils % 0.2 Basophils % (Manual) 0.0 Myelocytes % (Man) 0 Promyelocytes % (Man) 0 Blast Cells % (Manual) 0 Nucleated RBC % 0 Metamyelocytes 0 Hypochromia 1+ Platelet Estimate Normal Platelet Comment Polychromasia 0 Poikilocytosis 0 Anisocytosis 1+ Microcytosis 1+ Macrocytosis 0 ESR PT with INR 27.10 H INR 2.28 H PTT (Actin FS) 26.1 Sodium 141 Potassium 4.7 Chloride 106 Carbon Dioxide 30 Anion Gap 5 L BUN 69.8 H Creatinine 1.5 H Est GFR (CKD-EPI)AfAm 36.18 Est GFR (CKD-EPI)NonAf 31.22 Random Glucose 157 H Lactic Acid Calcium 9.3 Phosphorus Magnesium Total Bilirubin 0.8 AST 29 ALT 34 Alkaline Phosphatase 82 C-Reactive Protein Total Protein 6.2 L Albumin 2.8 L Urine Color Urine Appearance Urine pH Ur Specific [place] Urine Protein Urine Glucose (UA) Urine Ketones Urine Blood Urine Nitrite Urine Bilirubin Urine Urobilinogen Ur Leukocyte Esterase 11/08/18 11/08/18 07:04 07:04 WBC RBC Hgb Hct MCV MCH MCHC RDW Plt Count MPV Absolute Neuts (auto) Total Counted Neutrophils % Neutrophils % (Manual) Band Neutrophils % Lymphocytes % Lymphocytes % (Manual) Monocytes % Monocytes % (Manual) Eosinophils % Eosinophils % (Manual) Basophils % Basophils % (Manual) Myelocytes % (Man) Promyelocytes % (Man) Blast Cells % (Manual) Nucleated RBC % Metamyelocytes Hypochromia Platelet Estimate Platelet Comment Polychromasia Poikilocytosis Anisocytosis Microcytosis Macrocytosis ESR 20 PT with INR INR PTT (Actin FS) Sodium 143 Potassium 3.7 Chloride 108 H Carbon Dioxide 30 Anion Gap 5 L BUN 64.5 H Creatinine 1.3 Est GFR (CKD-EPI)AfAm 43.02 Est GFR (CKD-EPI)NonAf 37.12 Random Glucose 152 H Lactic Acid Calcium 8.6 Phosphorus 3.4 Magnesium 2.9 H Total Bilirubin 0.6 AST 14 L ALT 27 Alkaline Phosphatase 72 C-Reactive Protein 4.2 H Total Protein 5.4 L Albumin 2.5 L Urine Color Urine Appearance Urine pH Ur Specific [place] Urine Protein Urine Glucose (UA) Urine Ketones Urine Blood Urine Nitrite Urine Bilirubin Urine Urobilinogen Ur Leukocyte Esterase Current Medications Generic Name Dose Route Start Last Admin Trade Name Freq PRN Reason Stop Dose Admin Aspirin 81 mg 11/08/18 10:00 11/08/18 11:05 Asa - PO 81 mg DAILY ANNA Administration Atorvastatin Calcium 10 mg 11/08/18 22:00 Lipitor - PO HS ANNA Bisacodyl 10 mg 11/08/18 12:38 Dulcolax Suppository - RC DAILY PRN CONSTIPATION Diltiazem HCl 180 mg 11/08/18 10:00 11/08/18 11:00 Cardizem Cd - PO Not Given DAILY ANNA Ergocalciferol 50,000 unit 11/15/18 10:00 Drisdol - PO Q7D@1000 ANNA Furosemide 40 mg 11/08/18 14:00 11/08/18 14:39 Lasix - PO Not Given BIDLASIX ANNA Guaifenesin 600 mg 11/08/18 22:00 Mucinex - PO BID ANNA Lactated Ringer's 1,000 mls @ 60 mls/hr 11/07/18 22:45 11/07/18 23:15 Lactated Ringers Solution IV 60 mls/hr ASDIR ANNA Administration Metoprolol Succinate 100 mg 11/08/18 10:00 11/08/18 11:00 Toprol Xl - PO Not Given BID ANNA Pantoprazole Sodium 40 mg 11/08/18 10:00 11/08/18 11:04 Protonix Iv IVPUSH 40 mg DAILY ANNA Administration Potassium Chloride 20 meq 11/09/18 10:00 K-Dur - PO DAILY ANNA Spironolactone 25 mg 11/08/18 10:00 11/08/18 11:00 Aldactone - PO Not Given DAILY [facility] ASSESSMENT AND PLAN: 87 year old female with PMH of HTN, HLD, history of diverticulitis and SBO s/p partial colectomy, COPD, PE s/p Orthopedic Surgery 2006, Chronic Diastolic CHF , CAD s/p [place], Atrial Fibrillation (on Eliquis), Hx CVA (residual dysarthria), presented with altered mental status and found to have new small bowel obstruction. 1. Acute SBO - resolving with conservative management. Passing flatus/BMs. Leukocytosis resolving. IV fluids Advance diet as per Surgery. Enemas as per Surgery. 2. Acute Metabolic Encephalopathy - appears resolved. AAO x 3. Patient has baseline Dementia with waning and waxing mental status. 3. Atrial Fibrillation - Continue Metoprolol, Diltiazem, and Apixaban 4. Chronic Diastolic CHF - Continue Spironolactone, Metoprolol, Lasix. 5. CAD s/p [place] - Continue Aspirin, BB, Statin. 6. COPD - recent Exacerbation sec to [facility]. On tapering Prednisone course. 7. R sided Hydronephrosis - Urology out-patient follow up. 8. HLD - Continue Statin 9. HTN - Continue Toprol, Diltiazem, Spironolactone 10. Hx PE (provoked) s/p Orthopedic Sx 2006 - on Apixaban. 11. Chronic Anemia - mixed Iron and B12 deficiency (Iron Sat 10%, MMA and HC both elevated on recent labs) - started on Iron and B12 supplementation. 12. RUL Lung opacity 1.4cm - incidental finding on CT - for 3 month follow up. 13. Hx CVA (residual dysarthria/expressive dysphasia) - no new neurological deficits. Continue Apixaban/Statin DVT Px - on Apixaban GI Px - PPI
[2018-11-08] MEDS: APIXABAN 5 MG TABLET PO SCH (21:18)
[2018-11-08] MEDS: guaiFENesin 600 MG TABLET.ER (FP) PO SCH (21:18)
[2018-11-08] MEDS: ATORVASTATIN CA 10 MG TABLET (FP) PO SCH (21:18)
[2018-11-08] MEDS: LACTATED RINGERS SOLUTION 1,000 ML IV SCH (22:45)
[2018-11-09 07:36] LABS: BASO % 0.1 % (0-2.0); EOS % 0.9 % (0-4.5); HEMOGLOBIN 8.1 GM/dL (10.7-15.3); LYMPH % 4.1 % (8-40); MCH 27.5 pg (25.7-33.7); MCHC 31.4 g/dl (32.0-36.0); MEAN CELL VOLUME 87.6 fl (80-96); MEAN PLT VOLUME 8.4 fl (7.5-11.1); MONO % 4.1 % (3.8-10.2); NEUT % 90.8 % (42.8-82.8); PLATELET COUNT 300 K/MM3 (134-434); RBC 2.97 M/mm3 (3.60-5.2); RDW 20.2 % (11.6-15.6); WHITE BLOOD COUNT 12.7 K/mm3 (4.0-10.0)
[2018-11-09 07:57] LABS: INR 2.04 (0.83-1.09); PROTHROMBIN TIME (PATIENT) 24.3 SEC (9.7-13.0)
[2018-11-09 08:00] LABS: ACTIVATED PTT 27.3 SECONDS (25.2-36.5)
[2018-11-09 08:05] LABS: ALBUMIN 2.3 g/dl (3.4-5.0); BILIRUBIN,TOTAL 0.6 mg/dL (0.2-1); BLOOD UREA NITROGEN 47.6 mg/dL (7-18); CALCIUM 8.3 mg/dL (8.5-10.1); CREATININE 1.2 mg/dL (0.55-1.3); POTASSIUM 3.6 mmol/L (3.5-5.1); TOT PROT 4.9 g/dl (6.4-8.2)
[2018-11-09] MEDS: POTASSIUM CHLORIDE TABS 20 MEQ TABLET.ER (FP) PO SCH (10:26)
[2018-11-09] MEDS: guaiFENesin 600 MG TABLET.ER (FP) PO SCH ×2 (10:26→22:05)
[2018-11-09] MEDS: PANTOPRAZOLE SODIUM 40 MG VIAL IVPUSH SCH (10:26)
[2018-11-09] MEDS: ASPIRIN 81 MG CHEWABLE TABLETS PO SCH (10:26)
[2018-11-09] MEDS: APIXABAN 5 MG TABLET PO SCH ×2 (10:26→22:05)
--- NOTE | 2018-11-09 16:03 | PN ---
Teaching Attending Note Name of Resident: Paris Alas ATTENDING PHYSICIAN STATEMENT I saw and evaluated the patient. I reviewed the resident's note and discussed the case with the resident. I agree with the resident's findings and plan as documented. SUBJECTIVE: Feels well. Denies abdominal discomfort, nausea, vomiting. Passing BMs. No fever/chills. Tolerating clears. OBJECTIVE: Afebrile, Hemodynamically Stable. AAO x 3. Some dysarthria (chronic). Last Vital Signs Temp Pulse Resp BP Pulse Ox 98.0 F 82 22 H 117/55 L 98 11/09/18 14:56 11/09/18 14:56 11/09/18 10:00 11/09/18 14:56 11/08/18 22:00 Heart - S1, S2, SM Lungs - decreased air entry at bases. Abdomen - soft, distended, non-tender. Extremities - chronic venous stasis/mild edema, no calf tenderness. Laboratory Results - last 24 hr 11/09/18 11/09/18 11/09/18 06:59 06:59 06:59 WBC 12.7 H RBC 2.97 L Hgb 8.1 L Hct 26.0 L MCV 87.6 MCH 27.5 MCHC 31.4 L RDW 20.2 H Plt Count 300 MPV 8.4 Absolute Neuts (auto) 11.5 H Neutrophils % 90.8 H Lymphocytes % 4.1 L D Monocytes % 4.1 Eosinophils % 0.9 D Basophils % 0.1 Nucleated RBC % 0 PT with INR 24.30 H INR 2.04 H PTT (Actin FS) 27.3 Sodium 141 Potassium 3.6 Chloride 109 H Carbon Dioxide 28 Anion Gap 4 L BUN 47.6 H Creatinine 1.2 Est GFR (CKD-EPI)AfAm 47.39 Est GFR (CKD-EPI)NonAf 40.89 Random Glucose 123 H Calcium 8.3 L Total Bilirubin 0.6 AST 12 L ALT 22 Alkaline Phosphatase 63 Total Protein 4.9 L Albumin 2.3 L Current Medications Generic Name Dose Route Start Last Admin Trade Name Freq PRN Reason Stop Dose Admin Apixaban 5 mg 11/08/18 22:00 11/09/18 10:26 Eliquis - PO 5 mg BID ANNA Administration Aspirin 81 mg 11/08/18 10:00 11/09/18 10:26 Asa - PO 81 mg DAILY ANNA Administration Atorvastatin Calcium 10 mg 11/08/18 22:00 11/08/18 21:18 Lipitor - PO 10 mg HS ANNA Administration Bisacodyl 10 mg 11/08/18 12:38 11/08/18 18:45 Dulcolax Suppository - RC 10 mg DAILY PRN Administration CONSTIPATION Ergocalciferol 50,000 unit 11/15/18 10:00 Drisdol - PO Q7D@1000 ANNA Guaifenesin 600 mg 11/08/18 22:00 11/09/18 10:26 Mucinex - PO 600 mg BID ANNA Administration Pantoprazole Sodium 40 mg 11/08/18 10:00 11/09/18 10:26 Protonix Iv IVPUSH 40 mg DAILY ANNA Administration Potassium Chloride 20 meq 11/09/18 10:00 11/09/18 10:26 K-Dur - PO 20 meq DAILY ANNA Administration ASSESSMENT AND PLAN: 87 year old female with PMH of HTN, HLD, history of diverticulitis and SBO s/p partial colectomy, COPD, PE s/p Orthopedic Surgery 2006, Chronic Diastolic CHF , CAD s/p [place], Atrial Fibrillation (on Eliquis), Hx CVA (residual dysarthria), presented with altered mental status and found to have new small bowel obstruction. 1. Acute SBO - resolving with conservative management. Passing flatus/BMs. Leukocytosis resolving. Tolerating clears. Will advance diet to soft and stop IV fluids. Surgery signed off. 2. Acute Metabolic Encephalopathy - appears resolved. AAO x 3. Patient has baseline Dementia with waning and waxing mental status. 3. Atrial Fibrillation - Normally on Metoprolol, Diltiazem, and Apixaban 4. Chronic Diastolic CHF - Normally on Spironolactone, Metoprolol, Lasix (held currently due to borderline BP, will likely resume Lasix tonight). 5. CAD s/p [place] - On Aspirin, BB, Statin normally. 6. COPD - recent Exacerbation sec to [place]. Completed tapering Prednisone course. 7. R sided Hydronephrosis - Urology out-patient follow up. 8. HLD - Continue Statin 9. HTN - Normally on Toprol, Diltiazem, Spironolactone - held due to borderline BP 10. Hx PE (provoked) s/p Orthopedic Sx 2006 - on Apixaban. 11. Chronic Anemia - mixed Iron and B12 deficiency (Iron Sat 10%, MMA and HC both elevated on recent labs) - started on Iron and B12 supplementation on last admission. 12. RUL Lung opacity 1.4cm - incidental finding on CT - for 3 month follow up. 13. Hx CVA (residual dysarthria/expressive dysphasia) - no new neurological deficits. Continue Apixaban/Statin DVT Px - on Apixaban GI Px - PPI
--- NOTE | 2018-11-09 16:05 | PN ---
Physical Exam: SUBJECTIVE: Patient seen and examined at bedside. Pt is normotensive. Tolerating clear liquids. She has passed 2 bowel movements today. Patient c/o tongue pain when swallowing noted to have oral thrush. OBJECTIVE: Vital Signs Period Temp Pulse Resp BP Sys/Kendall Pulse Ox Last 24 Hr 97.8 F-98.4 F 60-82 20-20 100-117/44-55 98 GENERAL: AOx3, NAD HEENT: Shallow, white scrapable lesions on tongue LUNGS: CTABL HEART: RRR S1S2 heard ABDOMEN: Soft, distended. Nontender to palpation EXTREMITIES: 1+ edema b/l LE. 2+ periph pulses. SKIN: No rashes present. Resolving hematomas on b/l UW Laboratory Results - last 24 hr 11/09/18 11/09/18 11/09/18 06:59 06:59 06:59 WBC 12.7 H RBC 2.97 L Hgb 8.1 L Hct 26.0 L MCV 87.6 MCH 27.5 MCHC 31.4 L RDW 20.2 H Plt Count 300 MPV 8.4 Absolute Neuts (auto) 11.5 H Neutrophils % 90.8 H Lymphocytes % 4.1 L D Monocytes % 4.1 Eosinophils % 0.9 D Basophils % 0.1 Nucleated RBC % 0 PT with INR 24.30 H INR 2.04 H PTT (Actin FS) 27.3 Sodium 141 Potassium 3.6 Chloride 109 H Carbon Dioxide 28 Anion Gap 4 L BUN 47.6 H Creatinine 1.2 Est GFR (CKD-EPI)AfAm 47.39 Est GFR (CKD-EPI)NonAf 40.89 Random Glucose 123 H Calcium 8.3 L Total Bilirubin 0.6 AST 12 L ALT 22 Alkaline Phosphatase 63 Total Protein 4.9 L Albumin 2.3 L Active Medications Generic Name Dose Route Start Last Admin Trade Name Freq PRN Reason Stop Dose Admin Apixaban 5 mg 11/08/18 22:00 11/09/18 10:26 Eliquis - PO 5 mg BID ANNA Administration Aspirin 81 mg 11/08/18 10:00 11/09/18 10:26 Asa - PO 81 mg DAILY ANNA Administration Atorvastatin Calcium 10 mg 11/08/18 22:00 11/08/18 21:18 Lipitor - PO 10 mg HS ANNA Administration Bisacodyl 10 mg 11/08/18 12:38 11/08/18 18:45 Dulcolax Suppository - RC 10 mg DAILY PRN Administration CONSTIPATION Ergocalciferol 50,000 unit 11/15/18 10:00 Drisdol - PO Q7D@1000 ANNA Guaifenesin 600 mg 11/08/18 22:00 11/09/18 10:26 Mucinex - PO 600 mg BID ANNA Administration Lactated Ringer's 1,000 mls @ 60 mls/hr 11/07/18 22:45 11/08/18 22:45 Lactated Ringers Solution IV Not Given ASDIR ANNA Pantoprazole Sodium 40 mg 11/08/18 10:00 11/09/18 10:26 Protonix Iv IVPUSH 40 mg DAILY ANNA Administration Potassium Chloride 20 meq 11/09/18 10:00 11/09/18 10:26 K-Dur - PO 20 meq DAILY ANNA Administration Imagin/1 CXR: No change 11/07 Abd/ pel CT: Moderate dilation of small bowel loops- distal SBO w/ unclear transition point. Multiple gallstones present. 11/08 Abd XR: 2 views of the abdomen reveal degenerative changes, calcified gallstones, splenic artery calcification, aortic and iliac vascular calcifications and distended small bowel compatible with a small bowel obstruction. Similar findings were noted on CT from 11/07/2018. Free air is not seen. There is a large heart. Correlation recommended. (prior visit) 10/[address]: PNA (prior visit) 10/27 EKG: A-fib. Low voltage QRS. Nonspec T-wave abnormality. Cant r/o septal infarct. ASSESSMENT/PLAN: 87 y.o. F PMH significant for HTN, HLD, [place], AFib, CHF, partial colectomy, diverticulitis, SBO, CVA w/ rt sided residual weakness and dementia who presented for increasingly distended abdomen and constipation. Patient found to have SBO on abd CT, likely d/t prior abdominal surgery. Patient has passed 2 BMs. Advanced to clear liquids, tolerating well. #Small bowel obstruction -Surgery following -CLD -LR @60mL/ hr -Protonix 40mg IV QD #Resolving leukocytosis: -Blood & urine cx: NGTD -S/p 600mg Zosyn course -Monitor vitals -AM CBC #CHF -Holding Lasix, Spironolactone, Metoprolol succinate, diltiazem d/t hypotension -Pravastatin 40mg PO daily -ASA 81 mg PO daily #A-fib, controlled -Apixaban 5mg PO BID -Holding metoprolol #Altered mental status -AOx3 -daily neuro assessments -Pt completed prednisone course from last visit for PNA #FENA -LR 1,000 @60mL/hr -Monitor BMP -CLD -Ambulation: Pt able to sit up in bed with assistance -Wean off NC #GI PPX -Protonix 40mg IV QD #DVT Prophylaxis: Apixaban 5 mg PO BID #Dispo: SNF Visit type - Emergency Visit Emergency Visit: No - New Patient This patient is new to me today: No - Critical Care Critical Care patient: No
[2018-11-09] MEDS: NYSTATIN 500,000 UNITS/5 ML SUSPENSION PO SCH (17:41)
[2018-11-09] MEDS: ATORVASTATIN CA 10 MG TABLET (FP) PO SCH (22:05)
[2018-11-09] MEDS: FERROUS SO4 325 MG TABLET (FP) PO SCH (22:05)
[2018-11-10] MEDS: NYSTATIN 500,000 UNITS/5 ML SUSPENSION PO SCH ×5 (00:02→17:32)
[2018-11-10 08:22] LABS: BASO % 0.1 % (0-2.0); EOS % 0.6 % (0-4.5); HEMATOCRIT 29.7 % (32.4-45.2); HEMOGLOBIN 9.1 GM/dL (10.7-15.3); LYMPH % 5.6 % (8-40); MCH 27.3 pg (25.7-33.7); MCHC 30.7 g/dl (32.0-36.0); MEAN CELL VOLUME 88.8 fl (80-96); MEAN PLT VOLUME 8.4 fl (7.5-11.1); NEUT % 89.7 % (42.8-82.8); RBC 3.34 M/mm3 (3.60-5.2); RDW 20.2 % (11.6-15.6); WHITE BLOOD COUNT 14.1 K/mm3 (4.0-10.0)
[2018-11-10 08:34] LABS: INR 2.29 (0.83-1.09); PROTHROMBIN TIME (PATIENT) 27.2 SEC (9.7-13.0)
[2018-11-10 08:36] LABS: ACTIVATED PTT 28.1 SECONDS (25.2-36.5)
[2018-11-10 08:47] LABS: ARTERIAL BLD GAS O2 SATURATION 94.8 % (95-98); ARTERIAL BLOOD GAS BASE EXCESS 2.4 meq/l (-2-2); ARTERIAL BLOOD GAS PCO2 39.9 mmHg (35-45); ARTERIAL BLOOD GAS PO2 72.4 mmHg (80-105); ARTERIAL BLOOD GAS pH 7.43 (7.35-7.45)
[2018-11-10 08:48] LABS: ALLENS TEST POSITIVE
[2018-11-10 08:56] LABS: ALBUMIN 2.3 g/dl (3.4-5.0); BILIRUBIN,TOTAL 0.9 mg/dL (0.2-1); BLOOD UREA NITROGEN 30.3 mg/dL (7-18); CALCIUM 8.3 mg/dL (8.5-10.1); CREATININE 0.9 mg/dL (0.55-1.3); POTASSIUM 3.6 mmol/L (3.5-5.1); TOT PROT 5.2 g/dl (6.4-8.2)
--- NOTE | 2018-11-10 08:56 | PN ---
Physical Exam: SUBJECTIVE: Patient became altered last night and continues to be altered today. AOx2. Son present at bedside. Pt c/o oral pain, refused Nystatin last night and this morning. OBJECTIVE: Vital Signs Period Temp Pulse Resp BP Sys/Kendall Pulse Ox Last 24 Hr 98.0 F-99.0 F 75-97 20-22 109-138/50-67 98 GENERAL: AOx3. HEENT: Oral thrush present. LUNGS: CTABL. HEART: RRR. S1, S2 heard. ABDOMEN: Soft NT. Distended. EXTREMITIES: No edema noted. NEUROLOGICAL: Cranial nerves II through XII grossly intact. Normal speech, gait not observed. PSYCH: Normal mood, normal affect. SKIN: Warm, dry, normal turgor, no rashes or lesions noted Active Medications Generic Name Dose Route Start Last Admin Trade Name Freq PRN Reason Stop Dose Admin Apixaban 5 mg 11/08/18 22:00 11/09/18 22:05 Eliquis - PO 5 mg BID ANNA Administration Aspirin 81 mg 11/08/18 10:00 11/09/18 10:26 Asa - PO 81 mg DAILY ANNA Administration Atorvastatin Calcium 10 mg 11/08/18 22:00 11/09/18 22:05 Lipitor - PO 10 mg HS ANNA Administration Bisacodyl 10 mg 11/08/18 12:38 11/08/18 18:45 Dulcolax Suppository - RC 10 mg DAILY PRN Administration CONSTIPATION Cyanocobalamin 1,000 mcg 11/10/18 10:00 Vitamin B12 - PO DAILY ANNA Ergocalciferol 50,000 unit 11/15/18 10:00 Drisdol - PO Q7D@1000 ANNA Ferrous Sulfate 325 mg 11/09/18 22:00 11/09/18 22:05 Feosol - PO 325 mg BID ANNA Administration Guaifenesin 600 mg 11/08/18 22:00 11/09/18 22:05 Mucinex - PO 600 mg BID ANNA Administration Nystatin 500,000 units 11/09/18 18:00 11/10/18 06:00 Nystatin Oral Suspension - PO 500,000 units Q6HPO ANNA Administration Pantoprazole Sodium 40 mg 11/08/18 10:00 11/09/18 10:26 Protonix Iv IVPUSH 40 mg DAILY ANNA Administration Potassium Chloride 20 meq 11/09/18 10:00 11/09/18 10:26 K-Dur - PO 20 meq DAILY ANNA Administration ASSESSMENT/PLAN: 87 y.o. F PMH significant for HTN, HLD, DC, AFib, CHF, partial colectomy, diverticulitis, SBO, CVA w/ rt sided residual weakness and dementia who presented for increasingly distended abdomen and constipation. Patient found to have SBO on abd CT, likely d/t prior abdominal surgery. Patient had 1 large BM this morning. Leukocytosis trending up (14.1 today up from 12.7)- patient's son is not amenable to clinical workup at this time. Will monitor for fevers and trend white counts. Advanced to soft diet, only eating small amounts d/t oral pain from thrush. Pt has been refusing Nystatin swish & swallow but allowed application via oral swabbing. #Small bowel obstruction -Surgery following -Advanced to soft diet -PO fluids -Protonix 40mg IV QD #Leukocytosis -Trending up -Repeat blood cx, urine cx, UA, chest CR ordered -Monitor vitals -Trend CBC #CHF -Holding Lasix, Spironolactone, Metoprolol succinate, diltiazem d/t hypotension -Pravastatin 40mg PO daily -ASA 81 mg PO daily #A-fib, controlled -Apixaban 5mg PO BID -Holding metoprolol #Altered mental status -AOx3 -daily neuro assessments -Pt completed prednisone course from last visit for PNA #FENA -LR 1,000 @60mL/hr -Monitor BMP -CLD -Ambulation: Pt able to sit up in bed with assistance -Wean off NC #GI PPX -Protonix 40mg IV QD #DVT Prophylaxis: Apixaban 5 mg PO BID #Dispo: SNF Visit type - Emergency Visit Emergency Visit: No - New Patient This patient is new to me today: No - Critical Care Critical Care patient: No
[2018-11-10 08:58] LABS: PLATELET COUNT 319 K/MM3 (134-434)
[2018-11-10] MEDS: POTASSIUM CHLORIDE TABS 20 MEQ TABLET.ER (FP) PO SCH (11:03)
[2018-11-10] MEDS: ASPIRIN 81 MG CHEWABLE TABLETS PO SCH (11:04)
[2018-11-10] MEDS: FERROUS SO4 325 MG TABLET (FP) PO SCH ×2 (11:04→23:07)
[2018-11-10] MEDS: guaiFENesin 600 MG TABLET.ER (FP) PO SCH ×2 (11:04→23:07)
[2018-11-10] MEDS: PANTOPRAZOLE SODIUM 40 MG VIAL IVPUSH SCH (11:04)
[2018-11-10] MEDS: CYANOCOBALAMIN 1,000 MCG TABLET (FP) PO SCH (11:04)
[2018-11-10] MEDS: APIXABAN 5 MG TABLET PO SCH ×2 (11:04→21:22)
--- NOTE | 2018-11-10 13:44 | PN ---
Teaching Attending Note Name of Resident: Paris Alas ATTENDING PHYSICIAN STATEMENT I saw and evaluated the patient. I reviewed the resident's note and discussed the case with the resident. I agree with the resident's findings and plan as documented. SUBJECTIVE: Denies abdominal discomfort, nausea, vomiting. Passing BMs. No fever /chills. Tolerating diet. OBJECTIVE: Low grade T 99, Hemodynamically Stable. AAO x 3. Some dysarthria ( chronic). Last Vital Signs Temp Pulse Resp BP Pulse Ox 99.0 F 97 H 20 128/67 98 11/10/18 07:53 11/10/18 07:53 11/10/18 07:53 11/10/18 07:53 11/09/18 21:00 Heart - S1, S2, SM Lungs - decreased air entry at bases. Abdomen - soft, distended, non-tender. Extremities - chronic venous stasis/mild edema, no calf tenderness. Neuro - mildly lethargic. Rousable. EOMI. KASH. Moving all 4 extremities. Oroented x 3. Laboratory Results - last 24 hr 11/10/18 11/10/18 11/10/18 07:45 07:45 07:45 WBC 14.1 H RBC 3.34 L Hgb 9.1 L Hct 29.7 L MCV 88.8 MCH 27.3 MCHC 30.7 L RDW 20.2 H Plt Count 319 MPV 8.4 Absolute Neuts (auto) 12.7 H Neutrophils % 89.7 H Lymphocytes % 5.6 L D Monocytes % 4.0 Eosinophils % 0.6 Basophils % 0.1 Nucleated RBC % 0 PT with INR 27.20 H INR 2.29 H PTT (Actin FS) 28.1 Puncture Site ABG pH ABG pCO2 at Pt Temp ABG pO2 at Pt Temp ABG HCO3 ABG O2 Sat (Measured) ABG O2 Content ABG Base Excess Stef Test Oxygen Flow Rate Sodium 143 Potassium 3.6 Chloride 110 H Carbon Dioxide 28 Anion Gap 5 L BUN 30.3 H Creatinine 0.9 Est GFR (CKD-EPI)AfAm 67.10 Est GFR (CKD-EPI)NonAf 57.90 Random Glucose 132 H Calcium 8.3 L Total Bilirubin 0.9 AST 14 L ALT 21 Alkaline Phosphatase 81 Total Protein 5.2 L Albumin 2.3 L 11/10/18 08:44 WBC RBC Hgb Hct MCV MCH MCHC RDW Plt Count MPV Absolute Neuts (auto) Neutrophils % Lymphocytes % Monocytes % Eosinophils % Basophils % Nucleated RBC % PT with INR INR PTT (Actin FS) Puncture Site Right radial ABG pH 7.43 ABG pCO2 at Pt Temp 39.9 ABG pO2 at Pt Temp 72.4 L ABG HCO3 26.3 ABG O2 Sat (Measured) 94.8 L ABG O2 Content 13.9 L ABG Base Excess 2.4 H Stef Test Positive Oxygen Flow Rate 2l Sodium Potassium Chloride Carbon Dioxide Anion Gap BUN Creatinine Est GFR (CKD-EPI)AfAm Est GFR (CKD-EPI)NonAf Random Glucose Calcium Total Bilirubin AST ALT Alkaline Phosphatase Total Protein Albumin Current Medications Generic Name Dose Route Start Last Admin Trade Name Freq PRN Reason Stop Dose Admin Apixaban 5 mg 11/08/18 22:00 11/10/18 11:04 Eliquis - PO 5 mg BID ANNA Administration Aspirin 81 mg 11/08/18 10:00 11/10/18 11:04 Asa - PO 81 mg DAILY ANNA Administration Atorvastatin Calcium 10 mg 11/08/18 22:00 11/09/18 22:05 Lipitor - PO 10 mg HS ANNA Administration Bisacodyl 10 mg 11/08/18 12:38 11/08/18 18:45 Dulcolax Suppository - RC 10 mg DAILY PRN Administration CONSTIPATION Cyanocobalamin 1,000 mcg 11/10/18 10:00 11/10/18 11:04 Vitamin B12 - PO 1,000 mcg DAILY ANNA Administration Ergocalciferol 50,000 unit 11/15/18 10:00 Drisdol - PO Q7D@1000 ANNA Ferrous Sulfate 325 mg 11/09/18 22:00 11/10/18 11:04 Feosol - PO 325 mg BID ANNA Administration Guaifenesin 600 mg 11/08/18 22:00 11/10/18 11:04 Mucinex - PO 600 mg BID ANNA Administration Nystatin 500,000 units 11/09/18 18:00 11/10/18 11:05 Nystatin Oral Suspension - PO 500,000 units Q6HPO ANNA Administration Pantoprazole Sodium 40 mg 11/08/18 10:00 11/10/18 11:04 Protonix Iv IVPUSH 40 mg DAILY ANNA Administration Potassium Chloride 20 meq 11/09/18 10:00 11/10/18 11:03 K-Dur - PO 20 meq DAILY ANNA Administration ASSESSMENT AND PLAN: 87 year old female with PMH of HTN, HLD, history of diverticulitis and SBO s/p partial colectomy, COPD, PE s/p Orthopedic Surgery 2006, Chronic Diastolic CHF , CAD s/p [place], Atrial Fibrillation (on Eliquis), Hx CVA (residual dysarthria), presented with altered mental status and found to have new small bowel obstruction. 1. Acute SBO - resolving with conservative management. Passing flatus/BMs Tolerating soft diet. Surgery signed off. 2. Acute Metabolic Encephalopathy - appears resolved. AAO x 3. Patient has baseline Dementia with baseline waning and waxing mental status. Mildly lethargic today, not as sharp. WBC stilghly elevated from yesterday to 14.1. T 99 Will screen for any underlying infection with UA/Urine Cx and CXR. 3. Atrial Fibrillation - Normally on Metoprolol, Diltiazem, and Apixaban - antihypertensives held due to borderline BP. 4. Chronic Diastolic CHF - Normally on Spironolactone, Metoprolol, Lasix (held currently due to borderline BP, will likely resume Lasix tonight). 5. CAD s/p [place] - On Aspirin, BB, Statin normally. 6. COPD - recent Exacerbation sec to [facility]. Completed tapering Prednisone course. 7. R sided Hydronephrosis - for Urology out-patient follow up. 8. HLD - Continue Statin 9. HTN - Normally on Toprol, Diltiazem, Spironolactone - held due to borderline BP 10. Hx PE (provoked) s/p Orthopedic Sx 2006 - on Apixaban. 11. Chronic Anemia - mixed Iron and B12 deficiency (Iron Sat 10%, MMA and HC both elevated on recent labs) - started on Iron and B12 supplementation on last admission. 12. RUL Lung opacity 1.4cm - incidental finding on CT - for 3 month follow up. 13. Hx CVA (residual dysarthria/expressive dysphasia) - no new neurological deficits. Dysarthria waxes/wanes in severity. Continue Apixaban/Statin DVT Px - on Apixaban GI Px - PPI
[2018-11-10 22:39] LABS: EPI CELLS 1.3 /HPF (0-5/HPF); HYALINE CASTS 9 /lpf (0-8); PH,URINE 5.5 (5.0-8.0); URINE APPEARANCE CLEAR; URINE BACTERIA 0.8 /hpf (NEGATIVE); URINE BILIRUBIN NEGATIVE (NEGATIVE); URINE COLOR YELLOW; URINE GLUCOSE (UA) NEGATIVE (NEGATIVE); URINE KETONE NEGATIVE (NEGATIVE); URINE LEUK ESTERASE NEGATIVE (NEGATIVE); URINE NITRITE NEGATIVE (NEGATIVE); URINE PROTEIN 1+ (NEGATIVE); URINE RBC 4 /hpf (0-4); URINE WBC 2 /hpf (0-5)
[2018-11-10] MEDS: ATORVASTATIN CA 10 MG TABLET (FP) PO SCH (23:07)
[2018-11-11 06:57] LABS: BASO % 0.2 % (0-2.0); EOS % 0.7 % (0-4.5); HEMATOCRIT 26.4 % (32.4-45.2); HEMOGLOBIN 8.3 GM/dL (10.7-15.3); LYMPH % 5.3 % (8-40); MCH 27.6 pg (25.7-33.7); MCHC 31.4 g/dl (32.0-36.0); MEAN CELL VOLUME 87.9 fl (80-96); MEAN PLT VOLUME 8.1 fl (7.5-11.1); MONO % 4.3 % (3.8-10.2); NEUT % 89.5 % (42.8-82.8); PLATELET COUNT 280 K/MM3 (134-434); RBC 3.01 M/mm3 (3.60-5.2); RDW 21.7 % (11.6-15.6); WHITE BLOOD COUNT 10.8 K/mm3 (4.0-10.0)
[2018-11-11 07:26] LABS: BILIRUBIN,TOTAL 0.7 mg/dL (0.2-1); BLOOD UREA NITROGEN 24.4 mg/dL (7-18); CALCIUM 7.9 mg/dL (8.5-10.1); CREATININE 0.9 mg/dL (0.55-1.3); POTASSIUM 3.3 mmol/L (3.5-5.1); TOT PROT 4.8 g/dl (6.4-8.2)
[2018-11-11 07:43] LABS: INR 2.49 (0.83-1.09); PROTHROMBIN TIME (PATIENT) 29.6 SEC (9.7-13.0)
[2018-11-11 09:11] LABS: ANISOCYTOSIS 2+; MACROCYTOSIS 0; OVALOCYTE 1+; PLATELET ESTIMATE NORMAL; TEAR DROP CELLS 1+
[2018-11-11] MEDS ORDERED: POTASSIUM CHLORIDE TABS 20 MEQ TABLET.ER (FP) PO SCH (10:00)
[2018-11-11 10:25] LABS: MAGNESIUM 2.7 mg/dL (1.8-2.4)
[2018-11-11 10:41] LABS: PHOSPHOROUS 1.8 mg/dL (2.5-4.9)
[2018-11-11] MEDS: FERROUS SO4 325 MG TABLET (FP) PO SCH (11:30)
[2018-11-11] MEDS: CYANOCOBALAMIN 1,000 MCG TABLET (FP) PO SCH (11:30)
[2018-11-11] MEDS: guaiFENesin 600 MG TABLET.ER (FP) PO SCH (11:30)
[2018-11-11] MEDS: ASPIRIN 81 MG CHEWABLE TABLETS PO SCH (11:30)
[2018-11-11] MEDS: PANTOPRAZOLE SODIUM 40 MG VIAL IVPUSH SCH (11:30)
[2018-11-11] MEDS: APIXABAN 5 MG TABLET PO SCH (11:30)
[2018-11-11] MEDS ORDERED: PT OWN MED DRAWER 7, Y5N ONE (12:34)
[2018-11-11 12:43] VITALS: BP 117/50; PULSE 84
[2018-11-11] MEDS: NYSTATIN 500,000 UNITS/5 ML SUSPENSION PO SCH ×2 (12:46)
[2018-11-11] MEDS ORDERED: FUROSEMIDE 40 MG/4 ML INJECTABLE VIAL IVPUSH SCH (14:00)
--- NOTE | 2018-11-11 14:36 | PN ---
Teaching Attending Note Name of Resident: Paris Alas ATTENDING PHYSICIAN STATEMENT I saw and evaluated the patient. I reviewed the resident's note and discussed the case with the resident. I agree with the resident's findings and plan as documented. SUBJECTIVE: Denies abdominal discomfort, nausea, vomiting. Passing BMs. No fever /chills. Tolerating diet. No complaints. OBJECTIVE: Afebrile, Hemodynamically Stable. AAO x 3. Some dysarthria (chronic). Last Vital Signs Temp Pulse Resp BP Pulse Ox 9708 F H 84 19 117/50 L 9 L 11/11/18 10:00 11/11/18 10:00 11/11/18 10:00 11/11/18 10:00 11/10/18 21:00 HEENT - Thrush+ Heart - S1, S2, SM Lungs - decreased air entry at bases. Abdomen - soft, non-tender. Extremities - chronic venous stasis/mild edema, no calf tenderness. Neuro - AAO x 3. EOMI. KASH. Moving all 4 extremities. Laboratory Results - last 24 hr 11/10/18 11/11/18 11/11/18 22:15 06:17 06:17 WBC 10.8 H RBC 3.01 L Hgb 8.3 L Hct 26.4 L MCV 87.9 MCH 27.6 MCHC 31.4 L RDW 21.7 H Plt Count 280 MPV 8.1 Absolute Neuts (auto) 9.7 H Neutrophils % 89.5 H Lymphocytes % 5.3 L Monocytes % 4.3 Eosinophils % 0.7 Basophils % 0.2 Nucleated RBC % 0 Hypochromia 0 Platelet Estimate Normal Polychromasia 2+ Poikilocytosis 0 Basophilic Stippling 1+ Anisocytosis 2+ Microcytosis 1+ Macrocytosis 0 Spherocytes 1+ Tear Drop Cells 1+ Ovalocytes 1+ PT with INR 29.60 H INR 2.49 H Sodium Potassium Chloride Carbon Dioxide Anion Gap BUN Creatinine Est GFR (CKD-EPI)AfAm Est GFR (CKD-EPI)NonAf Random Glucose Calcium Phosphorus Magnesium Total Bilirubin AST ALT Alkaline Phosphatase Total Protein Albumin Urine Color Yellow Urine Appearance Clear Urine pH 5.5 Ur Specific [place] 1.017 Urine Protein 1+ H Urine Glucose (UA) Negative Urine Ketones Negative Urine Blood Trace Urine Nitrite Negative Urine Bilirubin Negative Urine Urobilinogen 1.0 Ur Leukocyte Esterase Negative Urine WBC (Auto) 2 Urine RBC (Auto) 4 Urine Casts (Auto) 9 U Epithel Cells (Auto) 1.3 Urine Bacteria (Auto) 0.8 11/11/18 06:17 WBC RBC Hgb Hct MCV MCH MCHC RDW Plt Count MPV Absolute Neuts (auto) Neutrophils % Lymphocytes % Monocytes % Eosinophils % Basophils % Nucleated RBC % Hypochromia Platelet Estimate Polychromasia Poikilocytosis Basophilic Stippling Anisocytosis Microcytosis Macrocytosis Spherocytes Tear Drop Cells Ovalocytes PT with INR INR Sodium 141 Potassium 3.3 L Chloride 109 H Carbon Dioxide 27 Anion Gap 5 L BUN 24.4 H Creatinine 0.9 Est GFR (CKD-EPI)AfAm 67.10 Est GFR (CKD-EPI)NonAf 57.90 Random Glucose 138 H Calcium 7.9 L Phosphorus 1.8 L Magnesium 2.7 H Total Bilirubin 0.7 AST 12 L ALT 21 Alkaline Phosphatase 84 Total Protein 4.8 L Albumin 2.0 L Urine Color Urine Appearance Urine pH Ur Specific [place] Urine Protein Urine Glucose (UA) Urine Ketones Urine Blood Urine Nitrite Urine Bilirubin Urine Urobilinogen Ur Leukocyte Esterase Urine WBC (Auto) Urine RBC (Auto) Urine Casts (Auto) U Epithel Cells (Auto) Urine Bacteria (Auto) Current Medications Generic Name Dose Route Start Last Admin Trade Name Freq PRN Reason Stop Dose Admin Apixaban 5 mg 11/08/18 22:00 11/11/18 11:30 Eliquis - PO 5 mg BID ANNA Administration Aspirin 81 mg 11/08/18 10:00 11/11/18 11:30 Asa - PO 81 mg DAILY ANNA Administration Atorvastatin Calcium 10 mg 11/08/18 22:00 11/10/18 23:07 Lipitor - PO Not Given HS ANNA Bisacodyl 10 mg 11/08/18 12:38 11/08/18 18:45 Dulcolax Suppository - RC 10 mg DAILY PRN Administration CONSTIPATION Cyanocobalamin 1,000 mcg 11/10/18 10:00 11/11/18 11:30 Vitamin B12 - PO 1,000 mcg DAILY ANNA Administration Ergocalciferol 50,000 unit 11/15/18 10:00 Drisdol - PO Q7D@1000 ANNA Ferrous Sulfate 325 mg 11/09/18 22:00 11/11/18 11:30 Feosol - PO 325 mg BID ANNA Administration Furosemide 40 mg 11/11/18 14:00 11/11/18 13:57 Lasix Injection - IVPUSH 40 mg BID@0600,1400 ANNA Administration Guaifenesin 600 mg 11/08/18 22:00 11/11/18 11:30 Mucinex - PO 600 mg BID ANNA Administration Metoprolol Succinate 100 mg 11/10/18 22:00 11/11/18 12:00 Toprol Xl - PO 100 mg BID ANNA Administration Nystatin 500,000 units 11/09/18 18:00 11/11/18 12:46 Nystatin Oral Suspension - PO 500,000 units Q6HPO ANNA Administration Pantoprazole Sodium 40 mg 11/08/18 10:00 11/11/18 11:30 Protonix Iv IVPUSH 40 mg DAILY ANNA Administration Potassium Chloride 40 meq 11/11/18 10:00 11/11/18 11:30 K-Dur - PO 11/11/18 22:01 40 meq BID ANNA Administration ASSESSMENT AND PLAN: 87 year old female with PMH of HTN, HLD, history of diverticulitis and SBO s/p partial colectomy, COPD, PE s/p Orthopedic Surgery 2006, Chronic Diastolic CHF , CAD s/p UT, Atrial Fibrillation (on Eliquis), Hx CVA (residual dysarthria), presented with altered mental status and found to have new small bowel obstruction. 1. Acute SBO - resolved with conservative management. Passing flatus/BMs Tolerating diet Surgery signed off - for out-patient follow up. 2. Acute Metabolic Encephalopathy - appears resolved. AAO x 3. Patient has baseline Dementia with baseline waning and waxing mental status. No signs of underlying infection. CXR no acute infiltrate. Urine Cx pending - will follow and contact nursing facility if positive. 3. Atrial Fibrillation - Normally on Metoprolol, Diltiazem, and Apixaban - antihypertensives initially held due to borderline BP - resumed on Metoprolol. For slow re-introduction of Diltiazem as out-patient. 4. Chronic Diastolic CHF - Normally on Spironolactone, Metoprolol, Lasix (held initially due to borderline BP, resumed on Lasix and Metoprolol prior to discharge, for slow reintroduction of Spironolactone as out-patient). 5. CAD s/p UT - On Aspirin, BB, Statin normally. 6. COPD - recent Exacerbation sec to [facility]. Completed tapering Prednisone course. Pulm follow up as out-patient. 7. R sided Hydronephrosis - for Urology out-patient follow up. 8. HLD - Continue Statin 9. HTN - Normally on Toprol, Diltiazem, Spironolactone - initially held due to borderline BP - resumed on Toprol. Diltiazem and Spironolactone for out-patient gradual re-introduction. 10. Hx of PE (provoked) s/p Orthopedic Sx 2006 - on Apixaban. 11. Chronic Anemia - mixed Iron and B12 deficiency (Iron Sat 10%, MMA and HC both elevated on recent labs) - started on Iron and B12 supplementation on last admission. 12. RUL Lung opacity 1.4cm - incidental finding on CT - for 3 month follow up. 13. Hx CVA (residual dysarthria/expressive dysphasia) - no new neurological deficits. Dysarthria waxes/wanes in severity. Continue Apixaban/Statin DVT Px - on Apixaban GI Px - PPI Dispo - Medically optimized for SNF today with follow ups as outlined above.
[2018-11-11 14:55] VITALS: TEMP 97.8
--- NOTE | 2018-11-11 16:49 | DS ---
Physical Exam: SUBJECTIVE: Patient seen and examined at bedside. AOx3 today. Patient is clinically stable. OBJECTIVE: Vital Signs Period Temp Pulse Resp BP Sys/Kendall Pulse Ox Last 24 Hr 97.8 F-98.2 F 84-96 19-20 116-128/50-59 9-95 PHYSICAL EXAM GENERAL: AOx3. HEENT: Oral thrush present in post pharynx LUNGS: CTABL. HEART: RRR. S1, S2 heard. ABDOMEN: Soft NT. Distended. EXTREMITIES: No edema noted. NEUROLOGICAL: Mild dysarthria (recent CVA hx) PSYCH: Normal mood, normal affect. SKIN: Warm, dry, normal turgor, no rashes or lesions noted LABS Laboratory Results - last 24 hr Laboratory Last Values WBC 10.8 K/mm3 (4.0-10.0) H 11/11/18 06:17 RBC 3.01 M/mm3 (3.60-5.2) L 11/11/18 06:17 Hgb 8.3 GM/dL (10.7-15.3) L 11/11/18 06:17 Hct 26.4 % (32.4-45.2) L 11/11/18 06:17 MCV 87.9 fl (80-96) 11/11/18 06:17 MCH 27.6 pg (25.7-33.7) 11/11/18 06:17 MCHC 31.4 g/dl (32.0-36.0) L 11/11/18 06:17 RDW 21.7 % (11.6-15.6) H 11/11/18 06:17 Plt Count 280 K/MM3 (134-434) 11/11/18 06:17 MPV 8.1 fl (7.5-11.1) 11/11/18 06:17 Absolute Neuts (auto) 9.7 K/mm3 (1.5-8.0) H 11/11/18 06:17 Total Counted 100 11/07/18 18:00 Neutrophils % 89.5 % (42.8-82.8) H 11/11/18 06:17 Neutrophils % (Manual) 98.0 % (42.8-82.8) H 11/08/18 07:04 Band Neutrophils % 0.0 % 11/08/18 07:04 Lymphocytes % 5.3 % (8-40) L 11/11/18 06:17 Lymphocytes % (Manual) 0.0 % (8-40) L 11/08/18 07:04 Monocytes % 4.3 % (3.8-10.2) 11/11/18 06:17 Monocytes % (Manual) 2 % (3.8-10.2) L 11/08/18 07:04 Eosinophils % 0.7 % (0-4.5) 11/11/18 06:17 Eosinophils % (Manual) 0.0 % (0-4.5) 11/08/18 07:04 Basophils % 0.2 % (0-2.0) 11/11/18 06:17 Basophils % (Manual) 0.0 % (0-2.0) 11/08/18 07:04 Myelocytes % (Man) 0 % (0-2) 11/08/18 07:04 Promyelocytes % (Man) 0 % (0-2) 11/08/18 07:04 Blast Cells % (Manual) 0 % (0-0) 11/08/18 07:04 Nucleated RBC % 0 % (0-0) 11/11/18 06:17 Metamyelocytes 0 % (0-2) 11/08/18 07:04 Hypochromia 0 11/11/18 06:17 Platelet Estimate Normal 11/11/18 06:17 Platelet Comment No clumping noted 11/07/18 18:00 Polychromasia 2+ 11/11/18 06:17 Poikilocytosis 0 11/11/18 06:17 Basophilic Stippling 1+ 11/11/18 06:17 Anisocytosis 2+ 11/11/18 06:17 Microcytosis 1+ 11/11/18 06:17 Macrocytosis 0 11/11/18 06:17 Spherocytes 1+ 11/11/18 06:17 Tear Drop Cells 1+ 11/11/18 06:17 Ovalocytes 1+ 11/11/18 06:17 ESR 20 mm/hr (0-30) 11/08/18 07:04 PT with INR 29.60 SEC (9.7-13.0) H 11/11/18 06:17 INR 2.49 (0.83-1.09) H 11/11/18 06:17 PTT (Actin FS) 28.1 SECONDS (25.2-36.5) 11/10/18 07:45 Puncture Site Right radial 11/10/18 08:44 ABG pH 7.43 (7.35-7.45) 11/10/18 08:44 ABG pCO2 at Pt Temp 39.9 mmHg (35-45) 11/10/18 08:44 ABG pO2 at Pt Temp 72.4 mmHg (80-105) L 11/10/18 08:44 ABG HCO3 26.3 mmol/L (22-27) 11/10/18 08:44 ABG O2 Sat (Measured) 94.8 % (95-98) L 11/10/18 08:44 ABG O2 Content 13.9 % vol (15-22) L 11/10/18 08:44 ABG Base Excess 2.4 meq/l (-2-2) H 11/10/18 08:44 Stef Test Positive 11/10/18 08:44 Oxygen Flow Rate 2l 11/10/18 08:44 Sodium 141 mmol/L (136-145) 11/11/18 06:17 Potassium 3.3 mmol/L (3.5-5.1) L 11/11/18 06:17 Chloride 109 mmol/L (98-107) H 11/11/18 06:17 Carbon Dioxide 27 mmol/L (21-32) 11/11/18 06:17 Anion Gap 5 MMOL/L (8-16) L 11/11/18 06:17 BUN 24.4 mg/dL (7-18) H 11/11/18 06:17 Creatinine 0.9 mg/dL (0.55-1.3) 11/11/18 06:17 Est GFR (CKD-EPI)AfAm 67.10 11/11/18 06:17 Est GFR (CKD-EPI)NonAf 57.90 11/11/18 06:17 Random Glucose 138 mg/dL (74-106) H 11/11/18 06:17 Lactic Acid 1.3 mmol/L (0.4-2.0) 11/07/18 00:50 Calcium 7.9 mg/dL (8.5-10.1) L 11/11/18 06:17 Phosphorus 1.8 mg/dL (2.5-4.9) L 11/11/18 06:17 Magnesium 2.7 mg/dL (1.8-2.4) H 11/11/18 06:17 Total Bilirubin 0.7 mg/dL (0.2-1) 11/11/18 06:17 AST 12 U/L (15-37) L 11/11/18 06:17 ALT 21 U/L (13-61) 11/11/18 06:17 Alkaline Phosphatase 84 U/L (45-117) 11/11/18 06:17 C-Reactive Protein 4.2 MG/DL (0.00-0.3) H 11/08/18 07:04 Total Protein 4.8 g/dl (6.4-8.2) L 11/11/18 06:17 Albumin 2.0 g/dl (3.4-5.0) L 11/11/18 06:17 Urine Color Yellow 11/10/18 22:15 Urine Appearance Clear 11/10/18 22:15 Urine pH 5.5 (5.0-8.0) 11/10/18 22:15 Ur Specific [place] 1.017 (1.010-1.035) 11/10/18 22:15 Urine Protein 1+ (NEGATIVE) H 11/10/18 22:15 Urine Glucose (UA) Negative (NEGATIVE) 11/10/18 22:15 Urine Ketones Negative (NEGATIVE) 11/10/18 22:15 Urine Blood Trace (NEGATIVE) 11/10/18 22:15 Urine Nitrite Negative (NEGATIVE) 11/10/18 22:15 Urine Bilirubin Negative (NEGATIVE) 11/10/18 22:15 Urine Urobilinogen 1.0 mg/dL (0.2-1.0) 11/10/18 22:15 Ur Leukocyte Esterase Negative (NEGATIVE) 11/10/18 22:15 Urine WBC (Auto) 2 /hpf (0-5) 11/10/18 22:15 Urine RBC (Auto) 4 /hpf (0-4) 11/10/18 22:15 Urine Casts (Auto) 9 /lpf (0-8) 11/10/18 22:15 U Epithel Cells (Auto) 1.3 /HPF (0-5/HPF) 11/10/18 22:15 Urine Bacteria (Auto) 0.8 /hpf (NEGATIVE) 11/10/18 22:15 HOSPITAL COURSE: 87 year old female PMH of HTN, HLD, diverticulitis and SBO s/p partial colectomy , COPD, PE s/p Orthopedic Surgery 2006, Chronic Diastolic CHF, CAD s/p CO, Atrial Fibrillation (on Eliquis), CVA (residual dysarthria), presented with altered mental status and found to have small bowel obstruction. SBO has resolved and patient is toelrating PO diet. She is passing bowel movements regularly and passing flatus. We have d/c'ed Spironolactone and diltiazem due to episodes of hypotension. She will f/u with PCP to reevaluate these medications. She will also f/y with gen surg in 1 week for findings of gallstones on imaging and urology to further manage the R hydronephrosis seen on CT. Date of Admission:11/07/1811/07 CT abd/pel: Moderate dilatation of the small bowel loops with air-fluid level suggestive of distal small bowel obstruction with the point of transition not clear on this exam. Marked right renal hydronephrosis compatible with previously described right ureteropelvic junction stenosis. Multiple gallstones without CT evidence of acute cholecystitis. Previously visualized low- attenuation mass inseparable from the left adrenal gland is again seen that may represent a myelolipoma, without gross interval change 11/08 11/08: 2 views of the abdomen reveal degenerative changes, calcified gallstones, splenic artery calcification, aortic and iliac vascular calcifications and distended small bowel compatible with a small bowel obstruction. Similar findings were noted on CT from 11/07/2018. Free air is not seen. There is a large heart. Correlation recommended. Date of Discharge: 11/11/18 Minutes to complete discharge: 36 Discharge Summary Reason For Visit: INTESTINAL OBSTRUCTION Condition: Stable - Instructions Diet, Activity, Other Instructions: You presented to the hospital with constipation. You had a CT of your abdomen which revealed a small bowel obstruction and gallstones. You were treated with IV fluids and bowel rest and your symptoms resolved. Medication Changes: 1. Please take Nystatin rinse & swallow 500,000 units by mouth for 7 days. You will stop taking this medication on 11/18/18. 2. Please take Colace 100mg twice a day. 3. Please reassess periodically for HR and BP for slow reintrodruction if needed of Spironolactone and Diltiazem which are currently held until cleared with your primary care provider. Follow up with the following physicians: 1. Primary care provider in 1 week 2. General surgery in 1 week for findings of gallstones. 3. Cardiology (Dr. Turner) in 1 week 4. Pulmonology (Dr. Prieto) in 1 week 5. Urology (Dr. Cobb) in 1 week to further manage the R Hydronephrosis on CT Scan Your CT Scan revealed a Right upper lobe Lung Opacity and you will need a follow up CT Scan in 3 months. You are being discharged to a nursing facility. Continue taking all your medications as prescribed. Please return to the ER if you have any signs or symptoms of shortness of breath , chest pain, dizziness, fevers, sweating, chills, palpitations, vomiting, muscle pains or weakness. Please return to the ER if symptoms persist, worsen, or new symptoms arise. Referrals: Yadira Groves [Primary Care Provider] - Dudley Rios MD [Staff Physician] - Ismael Prieto MD [Staff Physician] - Melanie Cobb MD [Staff Physician] - Keagan Turner MD [Staff Physician] - Disposition: [facility] F[facility] - Home Medications Comprehensive Discharge Medication List: Ambulatory Orders Aspirin 81 mg PO DAILY 09/06/17 Furosemide [Lasix -] 40 mg PO BID 09/06/17 Metoprolol Succinate [Toprol XL -] 100 mg PO BID 09/06/17 Potassium Chloride [K-Dur -] 20 meq PO DAILY 09/06/17 Pravastatin Sodium [Pravachol] 40 mg PO DAILY 09/06/17 Apixaban [Eliquis] 5 mg PO BID 09/07/17 Ergocalciferol [Vitamin D2] 50,000 unit PO Q7D@1000 10/27/18 Guaifenesin [Mucinex] 600 mg PO BID 10/27/18 Cyanocobalamin [Vitamin B12 -] 1,000 mcg PO DAILY #30 tablet 11/11/18 Docusate Sodium [Colace] 100 mg PO BID #60 capsule 11/11/18 Ferrous Sulfate [Feosol] 325 mg PO BID #60 ud 11/11/18 Nystatin Oral Suspension - [Nystatin Oral Susp 759437 Units/5 ML -] 500,000 units PO Q6HPO #28 cup 11/11/18 This patient is new to me today: No Emergency Visit: No Critical Care patient: No - Discharge Referral Referred to [facility] No
[2018-11-15] MEDS ORDERED: ERGOCALCIFEROL (VIT D2) 50,000 UNIT (1.25 MG) CAPSULE PO SCH (10:00)
== END 2018-11-11 15:51 | DRG 388 ==
LOC: JER 16:08 → JERBED 20:34 → J6S 11-08 00:13
PROVIDERS: ADMIT Internal Medicine
DX: K56.600 Partial intestinal obstruction, unspecified as to cause (principal); G93.41 Metabolic encephalopathy; I50.32 Chronic diastolic (congestive) heart failure; N13.30 Unspecified hydronephrosis; B37.0 Candidal stomatitis; I13.0 Hypertensive heart and chronic kidney disease with heart failure and stage 1 through stage 4 chronic kidney disease, or unspecified chronic kidney disease; J44.1 Chronic obstructive pulmonary disease with (acute) exacerbation; D72.829 Elevated white blood cell count, unspecified; I48.91 Unspecified atrial fibrillation; I25.10 Atherosclerotic heart disease of native coronary artery without angina pectoris; E83.39 Other disorders of phosphorus metabolism; I69.921 Dysphasia following unspecified cerebrovascular disease; E78.5 Hyperlipidemia, unspecified; D64.9 Anemia, unspecified; R41.82 Altered mental status, unspecified; E66.01 Morbid (severe) obesity due to excess calories; Z68.36 Body mass index [BMI] 36.0-36.9, adult; N18.3 Chronic kidney disease, stage 3 (moderate)
CPT/HCPCS: 36415; 36600; 71045-TC-FY; 71046-TC-FY; 74018-TC-FY; 74176-TC; 80053; 81003; 82803; 83605; 83735; 84100; 85025; 85610; 85651; 85730; 86140; 87040; 87086; 87186; 99283-25; J7030

== ENCOUNTER 2019-03-31 22:44 | Inpatient (IN) | payer OTHER ==
[2019-03-31 23:20] VITALS: BMI 34.9
--- NOTE | 2019-03-31 23:33 | PDOC ---
Attending Attestation - Resident Resident Name: Reggie Saldana - ED Attending Attestation I have performed the following: I have examined & evaluated the patient, The case was reviewed & discussed with the resident, I agree w/resident's findings & plan - HPI HPI: 04/01/19 01:16 Pt comes with green vomit and a hx of gallstones; She had an XR done outpatient today that showed prominent stones in her abdomen She is afebrile. She has a hx of partial SBO - Physicial Exam PE: 04/01/19 01:16 Pt is afebrile. Awake alert and calm Pt surrounded by her children. SHe is drinking contrast for CT scan SHe has RUQ pain as well as diffuse abd pain - Medical Decision Making 04/01/19 03:18 Patient Name: EMILY CASTILLO THIS IS A PRELIMINARY REPORT FROM [facility] DATE OF SERVICE: 2019-04-01 01:03:20 IMAGES: 34 EXAM: ABDOMEN US -LIMITED , right upper quadrant and limited abdominal duplex HISTORY: Rule out cholecystitis COMPARISON: None. FINDINGS: Right upper quadrant pain: The liver is fatty, without mass or biliary duct dilation. The gallbladder was not visualized. The CBD is not dilated for and measures7 millimeters in diameter. Right kidney measures 12.3centimeters in length and demonstrates moderate hydronephrosis.. The visualized aorta and IVC are normal. Pancreas is obscured. Abdominal duplex : The main portal vein demonstrate normal hepatopedal flow. IMPRESSION: Limited evaluation with nonvisualization of the gallbladder. Fatty liver. 04/01/19 05:27 Patient Name: EMILY CASTILLO THIS IS A PRELIMINARY REPORT FROM [facility] DATE OF SERVICE: 2019-04-01 02:55:57 IMAGES: 501 EXAM: ABDOMEN \T\ PELVIS CT W/O CONTR HISTORY: Rule out SBO COMPARISON: None. FINDINGS: Small bilateral pleural effusions are noted with mild compressive atelectasis. The visualized cardiac chambers are normal size and configuration. Multiple gallstones are noted without gallbladder inflammation or duct dilation. There is a 4.9 cm partially calcified fatty mass adjacent to the above the left kidney, possibly emanating from the kidney suggesting angiomyolipoma. Alternatively, fat necrosis is suspected. There is moderate dilation of the right central collecting system but a nondilated ureter. This could represent hydronephrosis with UPJ stricture, although a very prominent extra renal pelvis is considered. There is a small stone within the dilated central collecting system. There is a small hemorrhagic or proteinaceous left renal cyst. Normal unenhanced liver, pancreas, spleen, adrenal glands. There is a suspected small bowel obstruction with small bowel dilated to 4.2 cm. No abscess or free air. Transition point not clearly identified and there is diffuse mild air and fluid distention of the residual colon and therefore adynamic ileus is also considered. Status post right-sided bowel resection and presumed appendectomy. There is no aortic aneurysm. There is no significant retroperitoneal lymphadenopathy. There is a 3.8 x 1.5 cm air and fluid containing collection in the left retroperitoneum contiguous with the sigmoid colon likely indicating an old walled off bowel perforation. There is no surrounding soft tissue edema and this appears to be unrelated to the small bowel obstruction. The uterus and adnexal structures are notable for calcified fibroids.. Urinary bladder is unremarkable. There is no pelvic free fluid. No discrete pelvic lymphadenopathy is identified. IMPRESSION: SBO without abscess, free air or discrete transition point although adynamic ileus is also considered. 3.8 cm left retroperitoneal air fluid collection contiguous with the sigmoid colon, suspected to represent an old walled off bowel perforation unrelated to the SBO. Small bilateral pleural effusions. Gallstones. 4.9 cm fatty mass adjacent to the left kidney, possibly angiomyolipoma or fat necrosis. 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 Admitting team is here to admit the patient NGT placed and draining air and bilious abd contents. Heart Score/ECG Review - ECG Intrepretation Rhythm: Regularly Irregular - [place]: Normal - P and NM Atrial Enlargement: Right Delta Wave(s) Present: No WPW: No - QRS Widened: RBBB Poor R Wave Progression: No Q Wave Present: No - ST and T Early Repolarization: No Non Specific ST-T Wave changes: No Flattened T Waves: No Prolonged Q-T Interval: No - ECG Impressions Normal ECG: No Non-specific ST Elevation: No Ischemic Changes: No Bradycardia: No Torsades hui Pointes: No WPW: No
[2019-03-31] MEDS ORDERED: ACETAMINOPHEN 1000 MG/100 ML VIAL (NON FORMULARY) IVPB ONE (23:38)
[2019-03-31] MEDS ORDERED: SODIUM CHLORIDE 500 ML IV STA (23:38)
--- NOTE | 2019-03-31 23:39 | PDOC ---
History of Present Illness - General Chief Complaint: Nausea/Vomiting Stated Complaint: ABDOMINAL PAIN Time Seen by Provider: 03/31/19 23:24 History Source: Patient, Family Exam Limitations: Clinical Condition - History of Present Illness Initial Comments: Halina Vega is an 88 yo F w a pmh of SBO, multiple gallstones, HTN, HLD, [place], Afib on eliquis, CVA, PE, and partial colectomy who presents to the [facility] er with abdominal pain, nausea, and bilious vomiting for the past few hours. The patient is hard of hearing and is here with her daughter and son who help with the history. The daughter says the patient has not had a solid stool movement in the past 3 days but today started having mild watery diarrhea. Doctor Ky comes to see her at home and they had a KUB x-ray done today which was suggestive of a possible SBO. the patient has also been taking an antibiotic for the last week - sulfacetamide. Doctor fernandes recommended that patient come to the hospital to be evaluated for an SBO. She was diagnosed with a partial SBO in the past but when Dr. Rios evaluated the patient he determined that the patient did not indeed have a full bowel obstruction and the radiology findings were secondary to the patients abnormal anatomy after her partial colectomy. Denies chest pain, SOB, difficulty breathing, headache, blurry vision, back pain , dysuria, frequency, or urgency. PCP: Cindy Groves PSH: Partial colectomy Allergies: NKA, NKDA Social Hx: Lives with brandyer and son who takes care of patient. She is not independent in her ADL. Denies smoking, drinking, or other substance usage Past History - Past Medical History Allergies/Adverse Reactions: Allergies Allergy/AdvReac Type Severity Reaction Status Date / Time No Known Allergies Allergy Verified 11/07/18 17:29 Home Medications: Ambulatory Orders Aspirin 81 mg PO DAILY 09/06/17 Furosemide [Lasix -] 40 mg PO BID 09/06/17 Metoprolol Succinate [Toprol XL -] 100 mg PO BID 09/06/17 Potassium Chloride [K-Dur -] 20 meq PO DAILY 09/06/17 Pravastatin Sodium [Pravachol] 40 mg PO DAILY 09/06/17 Apixaban [Eliquis] 5 mg PO BID 05/01/18 Ergocalciferol [Vitamin D2] 50,000 unit PO Q7D@1000 10/27/18 Cyanocobalamin [Vitamin B12 -] 1,000 mcg PO DAILY #30 tablet 11/11/18 Docusate Sodium [Colace] 100 mg PO BID #60 capsule 11/11/18 Ferrous Sulfate [Feosol] 325 mg PO BID #60 ud 11/11/18 Albuterol 2.5/Ipratropium 0.5 [Duoneb -] 1 neb NEB QID PRN 04/01/19 Allopurinol [Zyloprim -] 100 mg PO WEEKLY 04/01/19 Colchicine 0.6 mg PO Q2D 04/01/19 Nystatin [Nyamyc] 100,000 unit TP BID 04/01/19 Sulfacetamide Sodium 10% [Bleph-10 Ophthalmic Solution -] 1 drop OU QID Cardiac Disorders: Yes (a fib,PE) CVA: Yes COPD: No GI Disorders: Yes (diverticulitis) HTN: Yes Hypercholesterolemia: Yes Seizures: Yes - Surgical History Cardiac Surgery: Yes (colon resection) GI Surgery: Yes (colon resection) - Psycho Social/Smoking Cessation Hx Smoking History: Never smoked Have you smoked in the past 12 months: No Information on smoking cessation initiated: No Hx Alcohol Use: No Drug/Substance Use Hx: No Substance Use Type: None Hx Substance Use Treatment: No Review of Systems - Review of Systems Able to Perform ROS?: Yes Comments:: CONSTITUTIONAL: Absent: fever, no chills, no fatigue EYES: Absent: visual changes ENT: Absent: ear pain, no sore throat CARDIOVASCULAR: Absent: chest pain, no palpitations RESPIRATORY: Absent: cough, no SOB GI: Present: Abdominal pain, nausea, vomiting, diarrhea Absent: no constipation GENITOURINARY: Absent: dysuria, no frequency, no hematuria MUSKULOSKELETAL: Present: Arthralgia Absent: back pain, no myalgia SKIN: present: rash NEURO: Absent: headache *Physical Exam - Vital Signs Last Vital Signs Temp Pulse Resp BP Pulse Ox 98.1 F 89 20 94/69 98 03/31/19 23:16 03/31/19 23:16 03/31/19 23:16 03/31/19 23:16 03/31/19 23:16 - Physical Exam Comments: GENERAL: Bed bound, obese, Well-nourished. No apparent distress. HEENT: bilateral blepharitis. Normocephalic, atraumatic. PERRL, EOM intact. CARDIOVASCULAR: Normal S1, S2. Regular rate and rhythm. PULMONARY: No evidence of respiratory distress. Lungs clear to auscultation bilaterally. No wheezing, rales or rhonchi. ABDOMEN: The abdomen is distended with normal bowel sounds. no focal TTP. EXTREMITIES: Normal ROM in upper extremities. multiple tophi on toes. multiple hand deformities. SKIN: Warm, dry. Intertrigo rash. NEUROLOGICAL: No focal neurological deficits. Procedures - Additional Procedures Additional Procedures: gastric tube replacement Progress: NG tube placed for SBO ED Treatment Course - LABORATORY CBC & Chemistry Diagram: 04/01/19 00:29 04/01/19 00:29 Medical Decision Making - Medical Decision Making Halina Vega is an 88 yo F w a pmh of SBO, multiple gallstones, HTN, HLD, [place], Afib on eliquis, CVA, PE, and partial colectomy who presents to the [facility] er with abdominal pain, nausea, and bilious vomiting for the past few hours. The patient is hard of hearing and is here with her daughter and son who help with the history. The daughter says the patient has not had a solid stool movement in the past 3 days but today started having mild watery diarrhea. Doctor Ky comes to see her at home and they had a KUB x-ray done today which was suggestive of a possible SBO. the patient has also been taking an antibiotic for the last week - sulfacetamide. Doctor fernandes recommended that patient come to the hospital to be evaluated for an SBO. She was diagnosed with a partial SBO in the past but when Dr. Rios evaluated the patient he determined that the patient did not indeed have a full bowel obstruction and the radiology findings were secondary to the patients abnormal anatomy after her partial colectomy. Vital Signs Temp Pulse Resp BP Pulse Ox 98.1 F 89 20 94/69 98 03/31/19 23:16 03/31/19 23:16 03/31/19 23:16 03/31/19 23:16 03/31/19 23:16 DDx IBNLT: SBO vs LBO, Ileus, cholecystitis, electrolyte/metabolic disturbance, other obstruction. Plan: labs, Urine, CTAP, gentle IV hydration, anti-emetics, re-assess, likely admission. Labs: Leukocytosis w left shift, elevated lactic acid, JAROD CTAP: Suggests SBO Re-assessment: Patient still has abdominal pain - will place an NG tube and admit for SBO - NG tube placed with 800 CC of bilious fluid return. Disposition: Med/Surg - Spoke with hospitalist team who accepts patient for admission. Discharge - Discharge Information Problems reviewed: Yes Clinical Impression/Diagnosis: SBO (small bowel obstruction) Condition: Stable - Admission Yes - Follow up/Referral Referrals: ON STAFF,NOT [Primary Care Provider] - - Patient Discharge Instructions - Post Discharge Activity
[2019-03-31] MEDS ORDERED: ONDANSETRON 4 MG/2 ML VIAL IVPUSH ONE (23:40)
[2019-04-01] MEDS ORDERED: ONDANSETRON 4 MG/2 ML VIAL ONE ×2 (00:23→02:48)
[2019-04-01] MEDS ORDERED: ACETAMINOPHEN INJECTION 100 ML IVPB ONE (00:23)
[2019-04-01 00:47] LABS: BASO % 0.3 % (0-2.0); EOS % 0.9 % (0-4.5); HEMATOCRIT 41.3 % (32.4-45.2); HEMOGLOBIN 13.7 GM/dL (10.7-15.3); LYMPH % 22.8 % (8-40); MCH 31.2 pg (25.7-33.7); MCHC 33.2 g/dl (32.0-36.0); MEAN CELL VOLUME 94.1 fl (80-96); MEAN PLT VOLUME 7.2 fl (7.5-11.1); PLATELET COUNT 572 K/MM3 (134-434); RBC 4.39 M/mm3 (3.60-5.2); RDW 18.5 % (11.6-15.6); WHITE BLOOD COUNT 10.5 K/mm3 (4.0-10.0)
[2019-04-01 01:05] LABS: INR 2.77 (0.83-1.09)
[2019-04-01 01:07] LABS: ACTIVATED PTT 43.9 SECONDS (25.2-36.5)
[2019-04-01 01:09] LABS: MAGNESIUM 1.4 mg/dL (1.8-2.4); PHOSPHOROUS 3.8 mg/dL (2.5-4.9)
[2019-04-01 01:13] LABS: ALBUMIN 2.5 g/dl (3.4-5.0); BLOOD UREA NITROGEN 25.6 mg/dL (7-18); CALCIUM 9.5 mg/dL (8.5-10.1); CREATININE 1.5 mg/dL (0.55-1.3); POTASSIUM 3.4 mmol/L (3.5-5.1); TOT PROT 7.4 g/dl (6.4-8.2)
[2019-04-01] MEDS ORDERED: ONDANSETRON 4 MG/2 ML VIAL IVPUSH ONE (02:47)
[2019-04-01] MEDS ORDERED: SODIUM CHLORIDE 0.9% 500 ML INFUS.BAG IV ONE (04:43)
[2019-04-01] MEDS ORDERED: LIDOCAINE HCL 2% JELLY (30 ML/TUBE) TP ONE (05:20)
[2019-04-01] MEDS ORDERED: TETRACAINE/BENZOCAINE/BUTAMBEN 20 GM SPR TP ONE (05:20)
[2019-04-01] MEDS ORDERED: LIDOCAINE HCL 2% JELLY (5 ML/TUBE) ONE (05:24)
[2019-04-01] MEDS ORDERED: METOCLOPRAMIDE HCL INJECTION 10 MG/2 ML VIAL IVPUSH PRN (06:09)
[2019-04-01] MEDS ORDERED: ACETAMINOPHEN 1000 MG/100 ML VIAL (NON FORMULARY) IVPB SCH (06:15)
[2019-04-01] MEDS ORDERED: LACTATED RINGERS SOLUTION 1,000 ML IV SCH ×2 (06:15→06:39)
--- NOTE | 2019-04-01 06:15 | PN ---
Teaching Attending Note Name of Resident: Nina Epps ATTENDING PHYSICIAN STATEMENT I saw and evaluated the patient. I reviewed the resident's note and discussed the case with the resident. I agree with the resident's findings and plan as documented. SUBJECTIVE: Patient is an 88 year old woman with PMH of SBO, Gallstones, HTN, HLD, [place], Afib on eliquis, CVA, PE, and Partial colectomy who presents to the ER with abdominal pain, nausea, and bilious vomiting for the past few hours. The patient is hard of hearing and is here with her daughter and son who help with the history. The daughter says the patient has not had a solid stool movement in the past 3 days but today started having mild watery diarrhea. Dr. Mcpherson saw her at home and they had a KUB x-ray done today which was suggestive of a possible SBO. Patient has also been taking an antibiotic for the last week - sulfacetamide. Dr. Mcpherson recommended that patient come to the hospital to be evaluated for an SBO. She was diagnosed with a partial SBO in the past but when Dr. Rios evaluated the patient he determined that the patient did not indeed have a full bowel obstruction and the radiology findings were secondary to the patients abnormal anatomy after her partial colectomy. Denies chest pain, SOB, difficulty breathing, headache, blurry vision, back pain, dysuria, frequency, or urgency. Denies tobacco, alcohol or illicit drug use. No recent travel or sick contacts. OBJECTIVE: Alert and NGT in place Vital Signs Period Temp Pulse Resp BP Sys/Kendall Pulse Ox Last 24 Hr 98.1 F 89-93 20-20 90-94/60-69 95-98 HEENT: No Jaundice, eye redness or discharge, PERRLA, EOMI. Normocephalic, atraumatic. External ears are normal and hearing is grossly intact. No nasal discharge. Neck: Supple, nontender. No palpable adenopathy or thyromegaly. No JVD Chest: Good effort. Clear to auscultation and percussion. Heart: Regular. No S3, rub or murmur Abdomen: Not distended, soft, nontender and no HSM. No rebound or guarding. Normal bowel sounds. Ext: Peripheral pulses intact. No leg edema. Skin: Warm and dry. No petechiae, rash or ecchymosis. Neuro: Alert. Oriented x3. CN 2-12 grossly intact. Sensation grossly intact in all four extremities and DTR are symmetric. Psych: Appropriate mood and affect. Good insight. Home Medications Medication Instructions Recorded Aspirin 81 mg PO DAILY 09/06/17 Furosemide [Lasix -] 40 mg PO BID 09/06/17 Metoprolol Succinate [Toprol XL -] 100 mg PO BID 09/06/17 Potassium Chloride [K-Dur -] 20 meq PO DAILY 09/06/17 Pravastatin Sodium [Pravachol] 40 mg PO DAILY 09/06/17 Apixaban [Eliquis] 5 mg PO BID 09/07/17 Ergocalciferol [Vitamin D2] 50,000 unit PO Q7D@1000 10/27/18 Cyanocobalamin [Vitamin B12 -] 1,000 mcg PO DAILY #30 tablet 11/11/18 Docusate Sodium [Colace] 100 mg PO BID #60 capsule 11/11/18 Ferrous Sulfate [Feosol] 325 mg PO BID #60 ud 11/11/18 Albuterol 2.5/Ipratropium 0.5 1 neb NEB QID PRN 04/01/19 [Duoneb -] Allopurinol [Zyloprim -] 100 mg PO WEEKLY 04/01/19 Colchicine 0.6 mg PO Q2D 04/01/19 Nystatin [Nyamyc] 100,000 unit TP BID 04/01/19 Sulfacetamide Sodium 10% [Bleph-10 1 drop OU QID 04/01/19 Ophthalmic Solution -] Abnormal Lab Results 04/01/19 04/01/19 04/01/19 00:29 00:29 00:29 WBC 10.5 H RDW 18.5 H Plt Count 572 H D MPV 7.2 L D Monocytes % 3.0 L PT with INR INR PTT (Actin FS) Potassium 3.4 L BUN 25.6 H Creatinine 1.5 H Random Glucose 112 H Lactic Acid Magnesium 1.4 L ALT 7 L Alkaline Phosphatase 151 H Albumin 2.5 L Lipase 35 L 04/01/19 04/01/19 00:29 03:46 WBC RDW Plt Count MPV Monocytes % PT with INR 33.00 H INR 2.77 H PTT (Actin FS) 43.9 H Potassium BUN Creatinine Random Glucose Lactic Acid 4.6 H* Magnesium ALT Alkaline Phosphatase Albumin Lipase Current Medications Generic Name Dose Route Start Last Admin Trade Name Freq PRN Reason Stop Dose Admin Acetaminophen 650 mg 04/01/19 06:15 Ofirmev Injection - IVPB Q6H ANNA Lactated Ringer's 1,000 mls @ 60 mls/hr 04/01/19 06:15 Lactated Ringers Solution IV ASDIR ANNA Metoclopramide HCl 10 mg 04/01/19 06:09 Reglan Injection - IVPUSH Q6H PRN NAUSEA AND/OR VOMITING ASSESSMENT AND PLAN: 1. Small bowel obstruction - CT scan of abdomen and pelvis with contrast showed "SBO without abscess, free air or discrete transition point although adynamic ileus is also considered. 3.8 cm left retroperitoneal air fluid collection contiguous with the sigmoid colon, suspected to represent an old walled off bowel perforation unrelated to the SBO. Small bilateral pleural effusions. Gallstones. 4.9 cm fatty mass adjacent to the left kidney, possibly angiomyolipoma or fat necrosis. Moderate right hydronephrosis due to UPJ stricture, versus very prominent external pelvis with small stone in the dilated collecting system." EKG shows Afib with RBBB, PVCs, prolonged QTc and no new ST-T wave changes. Lactic acidosis is unexplained. She is afebrile with mild leukocytosis. Unclear why she was getting sulfacetimide - will get urinalysis stat, check rectal temp , repeat CBC and lactic acid and then decide on need for antibiotics after. Continue IV NS and trend lactic acid. Surgery consult. Lactic acidosis raises concern for bowel ischemia. Patient reported had a CVA while on Eliquis - unclear whether she will need surgery, thus will continue Eliquis for now. Treat with IV KCL and IV MgSO4. Will continue comprehensive care for all of patients comorbid conditions. 2. CKD - Has risk factors for CKD and also likely partly due to outlet obstruction - right hydronephrosis due to ureteral stricture. Will consult nephrology and avoid nephrotoxic agents such as NSAIDS, aminoglycosides, contrast dyes and certain Alternative medicine products. 3. Obesity Counseled on the risks associated with obesity. Will provide patient all the necessary assistance, counseling and positive reinforcement to facilitate weight loss. Consult scoreboard operator. 4. Hypertension - Restart suitable outpatient antihypertensive drugs when clinically appropriate. Revise regimen to ensure [id number] excellent BP control and psychologist counseling patient on the injurious effects of uncontrolled hypertension. Nonpharmacologic measures to control hypertension like weight loss , salt restriction and exercise discussed. Importance of adherence to treatment regimen and attainment of normotension emphasized. 5. DVT prophylaxis - Continue Eliquis for now pending decision on surgery. 6. Advance directives - Full code
--- NOTE | 2019-04-01 06:22 | HP ---
CHIEF COMPLAINT: abdominal pain/ nausea PCP: dr. barr HISTORY OF PRESENT ILLNESS: 88 yo female with PMH of previous SBO s/p hemicolectomy, diverticulitis, HTN, HLD, afib (on eliquis), CVA, presents to the ED with complaints of vague abdominal pain and decreased appetite- patients son and daughter are at bedside and state that for the past few days their mothers appetite has been off and she has been complaining of vague lower abdominal pain, she has been having watery BM's but not eating as much and today her pain got severe and she was noted to be dry heaving so her family brought her here, of note she had been seen here in November with similar symptoms- she denies any feveres, illnesses or any sick contacts ER course was notable for: (1) vitals stable (2)WBC 10.5 r 1.5 (baseline 1.1) Lactic Acid 4.6 (3)Ab/Pelvis CT showed suspected SBO with small bowel dilated 4.2 cm (4) NGT was placed with copious amounts of bilious drainage Recent Travel: denies PAST MEDICAL HISTORY: see above PAST SURGICAL HISTORY: hemicolectomy; R knee replacement Social History: Smoking:denies Alcohol:denies Drugs: denies Allergies No Known Allergies Allergy (Verified 11/07/18 17:29) HOME MEDICATIONS: Home Medications Medication Instructions Recorded Aspirin 81 mg PO DAILY 09/06/17 Furosemide [Lasix -] 40 mg PO BID 09/06/17 Metoprolol Succinate [Toprol XL -] 100 mg PO BID 09/06/17 Potassium Chloride [K-Dur -] 20 meq PO DAILY 09/06/17 Pravastatin Sodium [Pravachol] 40 mg PO DAILY 09/06/17 Apixaban [Eliquis] 5 mg PO BID 09/07/17 Ergocalciferol [Vitamin D2] 50,000 unit PO Q7D@1000 10/27/18 Cyanocobalamin [Vitamin B12 -] 1,000 mcg PO DAILY #30 tablet 11/11/18 Docusate Sodium [Colace] 100 mg PO BID #60 capsule 11/11/18 Ferrous Sulfate [Feosol] 325 mg PO BID #60 ud 11/11/18 Albuterol 2.5/Ipratropium 0.5 1 neb NEB QID PRN 04/01/19 [Duoneb -] Allopurinol [Zyloprim -] 100 mg PO WEEKLY 04/01/19 Colchicine 0.6 mg PO Q2D 04/01/19 Nystatin [Nyamyc] 100,000 unit TP BID 04/01/19 Sulfacetamide Sodium 10% [Bleph-10 1 drop OU QID 04/01/19 Ophthalmic Solution -] REVIEW OF SYSTEMS CONSTITUTIONAL: Absent: fever, chills, diaphoresis, generalized weakness, malaise, loss of appetite, weight change HEENT: Absent: rhinorrhea, nasal congestion, throat pain, throat swelling, difficulty swallowing, mouth swelling, ear pain, eye pain, visual changes CARDIOVASCULAR: Absent: chest pain, syncope, palpitations, irregular heart rate, lightheadedness , peripheral edema RESPIRATORY: Absent: cough, shortness of breath, dyspnea with exertion, orthopnea, wheezing, stridor, hemoptysis GASTROINTESTINAL: Present: abdominal pain, abdominal distention Absent: , nausea, vomiting, diarrhea, constipation, melena, hematochezia GENITOURINARY: Absent: dysuria, frequency, urgency, hesitancy, hematuria, flank pain, genital pain MUSCULOSKELETAL: Absent: myalgia, arthralgia, joint swelling, back pain, neck pain SKIN: Absent: rash, itching, pallor HEMATOLOGIC/IMMUNOLOGIC: Absent: easy bleeding, easy bruising, lymphadenopathy, frequent infections ENDOCRINE: Absent: unexplained weight gain, unexplained weight loss, heat intolerance, cold intolerance NEUROLOGIC: Absent: headache, focal weakness or paresthesias, dizziness, unsteady gait, seizure, mental status changes, bladder or bowel incontinence PSYCHIATRIC: Absent: anxiety, depression, suicidal or homicidal ideation, hallucinations. PHYSICAL EXAMINATION Vital Signs - 24 hr 03/31/19 04/01/19 23:16 05:13 Temperature 98.1 F Pulse Rate 89 Pulse Rate [ 93 H Apical] Respiratory 20 20 Rate Blood Pressure 94/69 Blood Pressure 90/60 [Left Arm] O2 Sat by Pulse 98 95 Oximetry (%) GENERAL: Awake, alert, and fully oriented, in no acute distress. EYES: PEERLA; EOMI: no scleral icterus NECK: no JVD; no lymphadenopathy LUNGS: CTA B/L; no rales, rhonchi or wheezing . HEART: irregularly irregular, normal S1 and S2 without murmur, rub or gallop. ABDOMEN: Soft, distended; hypoactive BS; no tenderness upon palpation . EXTREMITIES: warm; well-perfused no clubbing/cyanosis or edema NEUROLOGICAL: Cranial nerves II-XII intact. Normal speech. Normal gait. PSYCHIATRIC: Cooperative. Good eye contact. Appropriate mood and affect. SKIN: Warm, dry, normal turgor, no rashes or lesions noted, normal capillary refill. Laboratory Results - last 24 hr 04/01/19 04/01/19 04/01/19 00:29 00:29 00:29 WBC 10.5 H RBC 4.39 Hgb 13.7 Hct 41.3 D MCV 94.1 MCH 31.2 D MCHC 33.2 RDW 18.5 H Plt Count 572 H D MPV 7.2 L D Absolute Neuts (auto) 7.7 Neutrophils % 73.0 Lymphocytes % 22.8 D Monocytes % 3.0 L Eosinophils % 0.9 Basophils % 0.3 Nucleated RBC % 0 PT with INR INR PTT (Actin FS) Sodium 138 Potassium 3.4 L Chloride 100 Carbon Dioxide 25 Anion Gap 13 BUN 25.6 H Creatinine 1.5 H Est GFR (CKD-EPI)AfAm 35.93 Est GFR (CKD-EPI)NonAf 31.00 Random Glucose 112 H Lactic Acid Calcium 9.5 Phosphorus Magnesium Total Bilirubin 1.0 AST 20 ALT 7 L Alkaline Phosphatase 151 H Creatine Kinase 40 Troponin I < 0.02 Total Protein 7.4 Albumin 2.5 L Lipase 04/01/19 04/01/19 04/01/19 00:29 00:29 00:29 WBC RBC Hgb Hct MCV MCH MCHC RDW Plt Count MPV Absolute Neuts (auto) Neutrophils % Lymphocytes % Monocytes % Eosinophils % Basophils % Nucleated RBC % PT with INR 33.00 H INR 2.77 H PTT (Actin FS) 43.9 H Sodium Potassium Chloride Carbon Dioxide Anion Gap BUN Creatinine Est GFR (CKD-EPI)AfAm Est GFR (CKD-EPI)NonAf Random Glucose Lactic Acid Calcium Phosphorus 3.8 Cancelled Magnesium 1.4 L Cancelled Total Bilirubin AST ALT Alkaline Phosphatase Creatine Kinase Troponin I Total Protein Albumin Lipase 35 L 04/01/19 03:46 WBC RBC Hgb Hct MCV MCH MCHC RDW Plt Count MPV Absolute Neuts (auto) Neutrophils % Lymphocytes % Monocytes % Eosinophils % Basophils % Nucleated RBC % PT with INR INR PTT (Actin FS) Sodium Potassium Chloride Carbon Dioxide Anion Gap BUN Creatinine Est GFR (CKD-EPI)AfAm Est GFR (CKD-EPI)NonAf Random Glucose Lactic Acid 4.6 H* Calcium Phosphorus Magnesium Total Bilirubin AST ALT Alkaline Phosphatase Creatine Kinase Troponin I Total Protein Albumin Lipase ASSESSMENT/PLAN: 88 yo female with PMH of previous SBO s/p hemicolectomy, diverticulitis, HTN, HLD, afib (on eliquis), CVA, presents to the ED with complaints of vague abdominal pain and decreased appetite found to have an SBO #SBO patient found to have an SBO on CT scan -NGT placed; monitor output -reglan PRN for nausea -Dr. strickland consulted; will see patient today -LR @60mls/hr -NPO except eliquis -tylneol PRN for pain -will convert oral meds to IV -repeat lactic acid #Leukocytosis source of infection unclear at the moment -will send UA stat before starting abx #Pete patient found to have a Cr of 1.5 (baseline 1) -liekly 2/2 poor PO intake and dehydration -IV fluids -avoid nephrotoxic agents #HTN will hold antihypertensives at the moment give low MAPS -if need will convert oral metoprolol to IV #CHF patient currently taking 40mg lasix BID -will give IV 40 daily #Afib will c/w eliquis 5 BID #HLD holding statin at the moment while NPO F/E/N LR@60mls/hr monitor electrolytes NPO dvt ppx" eliquis Family Medical History Family Hx Cardiac Disorders: Mother Family Hx Nuerologic Problems: Mother Visit type - Emergency Visit Emergency Visit: Yes Care time: The patient presented to the Emergency Department on the above date and was hospitalized for further evaluation of their emergent condition. - New Patient This patient is new to me today: Yes Date on this admission: 04/01/19 - Critical Care Critical Care patient: No ATTENDING PHYSICIAN STATEMENT I saw and evaluated the patient. I reviewed the resident's note and discussed the case with the resident. I agree with the resident's findings and plan as documented. SUBJECTIVE: OBJECTIVE: ASSESSMENT AND PLAN:
[2019-04-01] MEDS: ACETAMINOPHEN 1000 MG/100 ML VIAL (NON FORMULARY) IVPB SCH ×3 (06:59→20:05)
[2019-04-01] MEDS ORDERED: APIXABAN 5 MG TABLET PO SCH (10:00)
[2019-04-01] MEDS ORDERED: ASPIRIN 81 MG CHEWABLE TABLETS PO SCH (10:00)
[2019-04-01] MEDS ORDERED: FUROSEMIDE 40 MG/4 ML INJECTABLE VIAL IVPUSH SCH (10:00)
[2019-04-01 10:28] LABS: HEMATOCRIT 36.9 % (32.4-45.2); HEMOGLOBIN 12.3 GM/dL (10.7-15.3); MCH 31.4 pg (25.7-33.7); MCHC 33.4 g/dl (32.0-36.0); MEAN PLT VOLUME 7.1 fl (7.5-11.1); PLATELET COUNT 466 K/MM3 (134-434); RBC 3.92 M/mm3 (3.60-5.2); RDW 18.2 % (11.6-15.6); WHITE BLOOD COUNT 12.8 K/mm3 (4.0-10.0)
[2019-04-01] MEDS ORDERED: SODIUM CHLORIDE 500 ML IV STA (11:36)
--- NOTE | 2019-04-01 12:05 | PN ---
Physical Exam: SUBJECTIVE: Patient seen and examined. She denies abdominal pain, nausea. OBJECTIVE: Vital Signs Period Temp Pulse Resp BP Sys/Kendall Pulse Ox Last 24 Hr 98.0 F-98.1 F 89-93 18-20 90-94/60-69 95-98 GENERAL: The patient is awake, alert, and fully oriented, in no acute distress. LUNGS: Breath sounds equal, clear to auscultation bilaterally, no wheezes, no crackles, no accessory muscle use. HEART: Irregularly irregular. ABDOMEN: Obese, soft, nontender, (+) mild distention, hypoactive bowel sounds, no guarding, no rebound, no hepatosplenomegaly, no masses. EXTREMITIES: 2+ pulses, warm, well-perfused, trace edema. Laboratory Results - last 24 hr 04/01/19 04/01/19 04/01/19 00:29 00:29 00:29 WBC 10.5 H RBC 4.39 Hgb 13.7 Hct 41.3 D MCV 94.1 MCH 31.2 D MCHC 33.2 RDW 18.5 H Plt Count 572 H D MPV 7.2 L D Absolute Neuts (auto) 7.7 Neutrophils % 73.0 Lymphocytes % 22.8 D Monocytes % 3.0 L Eosinophils % 0.9 Basophils % 0.3 Nucleated RBC % 0 PT with INR INR PTT (Actin FS) Sodium 138 Potassium 3.4 L Chloride 100 Carbon Dioxide 25 Anion Gap 13 BUN 25.6 H Creatinine 1.5 H Est GFR (CKD-EPI)AfAm 35.93 Est GFR (CKD-EPI)NonAf 31.00 Random Glucose 112 H Lactic Acid Calcium 9.5 Phosphorus Magnesium Total Bilirubin 1.0 AST 20 ALT 7 L Alkaline Phosphatase 151 H Creatine Kinase 40 Troponin I < 0.02 Total Protein 7.4 Albumin 2.5 L Lipase Blood Type Antibody Screen 04/01/19 04/01/19 04/01/19 00:29 00:29 00:29 WBC RBC Hgb Hct MCV MCH MCHC RDW Plt Count MPV Absolute Neuts (auto) Neutrophils % Lymphocytes % Monocytes % Eosinophils % Basophils % Nucleated RBC % PT with INR 33.00 H INR 2.77 H PTT (Actin FS) 43.9 H Sodium Potassium Chloride Carbon Dioxide Anion Gap BUN Creatinine Est GFR (CKD-EPI)AfAm Est GFR (CKD-EPI)NonAf Random Glucose Lactic Acid Calcium Phosphorus 3.8 Cancelled Magnesium 1.4 L Cancelled Total Bilirubin AST ALT Alkaline Phosphatase Creatine Kinase Troponin I Total Protein Albumin Lipase 35 L Blood Type Antibody Screen 04/01/19 04/01/19 04/01/19 03:46 08:40 10:02 WBC RBC Hgb Hct MCV MCH MCHC RDW Plt Count MPV Absolute Neuts (auto) Neutrophils % Lymphocytes % Monocytes % Eosinophils % Basophils % Nucleated RBC % PT with INR INR PTT (Actin FS) Sodium Potassium Chloride Carbon Dioxide Anion Gap BUN Creatinine Est GFR (CKD-EPI)AfAm Est GFR (CKD-EPI)NonAf Random Glucose Lactic Acid 4.6 H* 4.3 H* Calcium Phosphorus Magnesium Total Bilirubin AST ALT Alkaline Phosphatase Creatine Kinase Troponin I Total Protein Albumin Lipase Blood Type A POSITIVE Antibody Screen Negative 04/01/19 10:02 WBC 12.8 H RBC 3.92 Hgb 12.3 Hct 36.9 MCV 94.0 MCH 31.4 MCHC 33.4 RDW 18.2 H Plt Count 466 H MPV 7.1 L Absolute Neuts (auto) Neutrophils % Lymphocytes % Monocytes % Eosinophils % Basophils % Nucleated RBC % PT with INR INR PTT (Actin FS) Sodium Potassium Chloride Carbon Dioxide Anion Gap BUN Creatinine Est GFR (CKD-EPI)AfAm Est GFR (CKD-EPI)NonAf Random Glucose Lactic Acid Calcium Phosphorus Magnesium Total Bilirubin AST ALT Alkaline Phosphatase Creatine Kinase Troponin I Total Protein Albumin Lipase Blood Type Antibody Screen Active Medications Generic Name Dose Route Start Last Admin Trade Name Freq PRN Reason Stop Dose Admin Acetaminophen 1,000 mg 04/01/19 06:45 04/01/19 06:59 Ofirmev Injection - IVPB 1,000 mg Q6H ANNA Administration Lactated Ringer's 1,000 mls @ 75 mls/hr 04/01/19 06:39 04/01/19 06:59 Lactated Ringers Solution IV 75 mls/hr ASDIR ANNA Administration Sodium Chloride 500 mls @ 500 mls/hr 04/01/19 11:36 Normal Saline - IV 04/01/19 12:35 ASDIR STA Metoclopramide HCl 10 mg 04/01/19 06:09 Reglan Injection - IVPUSH Q6H PRN NAUSEA AND/OR VOMITING ASSESSMENT/PLAN: This is an 88 year old woman with a history of SBO, diverticulitis, hemicolectomy, HTN, hyperlipidemia, CAD, ID, atrial fib, chronic diastolic heart failure, CVA, PE who presented to the ED with abdominal pain and decreased appetite. 1. SBO - Maintain NGT - NPO - IV fluid - Surgery evaluation 2. Possible severe sepsis (leukocytosis, tachycardia, tachypnea, hypotension, lactic acidosis) secondary to possible sigmoid diverticuilitis/abscess, possible UTI - Check UA, urine culture - Start ceftriaxone, Flagyl - IV fluid bolus - will be cautious secondary to CHF - Repeat lactic acid - Surgery, ID evaluations 3. Acute kidney injury on stage 3 CKD - IVF - Monitor BUN, creatinine 4. Hypomagnesemia - Magnesium supplementation 5. CAD, history of ID - Hold aspirin, Toprol XL, Pravachol secondary to hypotension, NPO/NGT 6. Chronic diastolic heart failure - Hold Lasix secondary to hypotension, JAROD - Monitor volume status with IV fluid 7. Atrial fib, permanent - Hold Toprol XL secondary to hypotension - Lopressor IV for rate control once BP is able to tolerate - Hold Eliquis secondary to NPO/NGT - INR 2.77 - start heparin IV once INR 2.0 8. HTN - Hold antihypertensive medications secondary to hypotension 9. Hyperlipidemia - Resume Pravachol when able to take PO meds 10. 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 History of PE after orthopedic surgery Visit type - Emergency Visit Emergency Visit: Yes ED Registration Date: 04/01/19 Care time: The patient presented to the Emergency Department on the above date and was hospitalized for further evaluation of their emergent condition. - New Patient This patient is new to me today: Yes Date on this admission: 04/01/19 - Critical Care Critical Care patient: Yes Total Critical Care Time (in minutes): 45 Critical Care Statement: The care of this patient involved high complexity decision making to prevent further life threatening deterioration of the patient 's condition and/or to evaluate & treat vital organ system(s) failure or risk of failure. - Discharge Referral Referred to [facility] No
--- NOTE | 2019-04-01 12:31 | CONSULT ---
- Consultation REQUESTING PROVIDER: Supriya BUSCH CONSULT REQUEST: We have been asked to surgically evaluate this patient for ( specify). PCP:Jensen Doshi MD HISTORY OF PRESENT ILLNESS:JHONNY who is an 88 yo female with complaints of vague abdominal pain and decreased appetite- patients son and daughter are at bedside and state that for the past few days their mothers appetite has been poor and she has been complaining of vague lower abdominal pain, she has been having watery BM's on the day of admission her pain got severe and she was noted to be dry heaving so her family brought her here, she was ? seen by here PCP in the office and sent for evaluation; She had diverticulitis 09/07/17 which was txed conservatively and then an SBO 11/08/18 which responded to conservative tx. PMHx: CHF/HTN/HLD/GOUT PSHx: right colon resection Home Medications Medication Instructions Recorded Aspirin 81 mg PO DAILY 09/06/17 Furosemide [Lasix -] 40 mg PO BID 09/06/17 Metoprolol Succinate [Toprol XL -] 100 mg PO BID 09/06/17 Potassium Chloride [K-Dur -] 20 meq PO DAILY 09/06/17 Pravastatin Sodium [Pravachol] 40 mg PO DAILY 09/06/17 Apixaban [Eliquis] 5 mg PO BID 09/07/17 Ergocalciferol [Vitamin D2] 50,000 unit PO Q7D@1000 10/27/18 Cyanocobalamin [Vitamin B12 -] 1,000 mcg PO DAILY #30 tablet 11/11/18 Docusate Sodium [Colace] 100 mg PO BID #60 capsule 11/11/18 Ferrous Sulfate [Feosol] 325 mg PO BID #60 ud 11/11/18 Albuterol 2.5/Ipratropium 0.5 1 neb NEB QID PRN 04/01/19 [Duoneb -] Allopurinol [Zyloprim -] 100 mg PO WEEKLY 04/01/19 Colchicine 0.6 mg PO Q2D 04/01/19 Nystatin [Nyamyc] 100,000 unit TP BID 04/01/19 Sulfacetamide Sodium 10% [Bleph-10 1 drop OU QID 04/01/19 Ophthalmic Solution -] Allergies Allergy/AdvReac Type Severity Reaction Status Date / Time No Known Allergies Allergy Verified 11/07/18 17:29 REVIEW OF SYSTEMS:unable to accurately provide; info from family CONSTITUTIONAL: Present: generalized weakness, malaise, loss of appetite, CARDIOVASCULAR: Absent: chest pain, syncope, palpitations, irregular heart rate, lightheadedness , peripheral edema RESPIRATORY: Absent: cough, shortness of breath, dyspnea with exertion, wheezing, stridor, hemoptysis GASTROINTESTINAL: Present: abdominal pain, abdominal distension, nausea, vomiting, diarrhea, c GENITOURINARY: Absent: dysuria, frequency, urgency, hesitancy, hematuria, flank pain, genital pain MUSCULOSKELETAL: Absent: myalgia, arthralgia, joint swelling, back pain, neck pain SKIN: Absent: rash, itching, pallor HEMATOLOGIC/IMMUNOLOGIC: Absent: easy bleeding, easy bruising, lymphadenopathy NEUROLOGIC: Absent: headache, focal weakness, paresthesias, dizziness, unsteady gait, seizure, mental status changes, bladder or bowel incontinence PSYCHIATRIC: Absent: anxiety, depression, suicidal or homicidal ideation, hallucinations. PHYSICAL EXAM: GENERAL: Awake, alert, and fully oriented, in no acute distress. HEAD: Normal with no signs of trauma. EYES: sclera anicteric, conjunctiva clear. LUNGS: Clear to auscultation bilat anteriorly. No wheezes, and no crackles. No accessory muscle use. HEART: Regular rate and rhythm. No murmurs ABDOMEN: Soft, nontender, distended and tympanitic, hypoactive bowel sounds, no guarding, no rebound, no masses. No organomegaly. No hernias; healed surgical scar.SBO; recurrent MUSCULOSKELETAL: Normal ROM at all joints. No bony deformities or tenderness. No CVA tenderness. UPPER EXTREMITIES: 2+ pulses, warm, well-perfused. No cyanosis. Cap refill <2 seconds. No peripheral edema. LOWER EXTREMITIES: 2+ pulses, warm, well-perfused. No calf tenderness. No peripheral edema. NEUROLOGICAL: Normal speech, gait not observed. PSYCH: Cooperative. Good eye contact. Appropriate mood and affect. SKIN: Warm, dry, normal turgor, no rashes or lesions noted. Vital Signs Temperature 98.0 F 04/01/19 07:04 Pulse Rate 91 H 04/01/19 07:04 Respiratory Rate 18 04/01/19 07:04 Blood Pressure 91/65 04/01/19 07:04 O2 Sat by Pulse Oximetry (%) 95 04/01/19 07:04 Lab Results WBC 12.8 K/mm3 (4.0-10.0) H 04/01/19 10:02 RBC 3.92 M/mm3 (3.60-5.2) 04/01/19 10:02 Hgb 12.3 GM/dL (10.7-15.3) 04/01/19 10:02 Hct 36.9 % (32.4-45.2) 04/01/19 10:02 MCV 94.0 fl (80-96) 04/01/19 10:02 MCHC 33.4 g/dl (32.0-36.0) 04/01/19 10:02 RDW 18.2 % (11.6-15.6) H 04/01/19 10:02 Plt Count 466 K/MM3 (134-434) H 04/01/19 10:02 Sodium 138 mmol/L (136-145) 04/01/19 00:29 Potassium 3.4 mmol/L (3.5-5.1) L 04/01/19 00:29 Chloride 100 mmol/L (98-107) 04/01/19 00:29 Carbon Dioxide 25 mmol/L (21-32) 04/01/19 00:29 Anion Gap 13 MMOL/L (8-16) 04/01/19 00:29 BUN 25.6 mg/dL (7-18) H 04/01/19 00:29 Creatinine 1.5 mg/dL (0.55-1.3) H 04/01/19 00:29 Random Glucose 112 mg/dL (74-106) H 04/01/19 00:29 Calcium 9.5 mg/dL (8.5-10.1) 04/01/19 00:29 Blood Type A POSITIVE 04/01/19 10:02 Antibody Screen Negative 04/01/19 10:02 INR 2.77 (0.83-1.09) H 04/01/19 00:29 CT scan a/p reviewed IMP:SBO recurrent PLAN: NPO/IVF/NGT/serial exams and abdominal x rays; will f/u,. Bahman Pérez MD FACS
[2019-04-01 14:32] LABS: EPI CELLS 7.8 /HPF (0-5/HPF); HYALINE CASTS 35 /lpf (0-8); URINE APPEARANCE TURBID; URINE BACTERIA 250.4 /hpf (NEGATIVE); URINE BILIRUBIN NEGATIVE (NEGATIVE); URINE COLOR DK YELLOW; URINE GLUCOSE (UA) NEGATIVE (NEGATIVE); URINE KETONE NEGATIVE (NEGATIVE); URINE LEUK ESTERASE 3+ (NEGATIVE); URINE NITRITE NEGATIVE (NEGATIVE); URINE PROTEIN 2+ (NEGATIVE); URINE UROBILINOGEN 0.2 mg/dL (0.2-1.0); URINE WBC 1030 /hpf (0-5)
[2019-04-01] MEDS ORDERED: SODIUM CHLORIDE 1,000 ML IV SCH (14:45)
[2019-04-01] MEDS ORDERED: MAGNESIUM SULF 50% (8.12 MEQ/2 ML-1 GM VIAL) IVPB ONE (15:00)
[2019-04-01] MEDS ORDERED: MAGNESIUM 1GM/D5W - 1 GM/100 ML IVPB IVPB ONE (15:55)
[2019-04-01] MEDS ORDERED: CEFTRIAXONE 1 GM/50 ML BAG ONE (15:55)
[2019-04-01 17:16] LABS: INR 3.21 (0.83-1.09); PROTHROMBIN TIME (PATIENT) 38.3 SEC (9.7-13.0)
[2019-04-01] MEDS: CEFTRIAXONE 1 GM in DEXTROSE 5%-WATER - 50 ML IVPB SCH (17:30)
--- NOTE | 2019-04-01 18:00 | EKG ---
Test Reason : Blood Pressure : / mmHG Vent. Rate : 088 BPM Atrial Rate : 081 BPM P-R Int : 000 ms QRS Dur : 114 ms QT Int : 400 ms P-R-T Axes : 000 -20 233 degrees QTc Int : 484 ms POOR DATA QUALITY, INTERPRETATION MAY BE ADVERSELY AFFECTED ATRIAL FIBRILLATION WITH PREMATURE VENTRICULAR OR ABERRANTLY CONDUCTED COMPLEXES INFERIOR-POSTERIOR INFARCT , POSSIBLY ACUTE ACUTE LA / STEMI Confirmed by MD Beatriz, Wilber ([id number]) on 04/01/2019 6:00:23 PM Referred By: Confirmed By:Wilber Henderson MD
[2019-04-02] MEDS: ACETAMINOPHEN 1000 MG/100 ML VIAL (NON FORMULARY) IVPB SCH ×4 (00:52→17:45)
[2019-04-02 07:26] LABS: BASO % 0.4 % (0-2.0); EOS % 1.9 % (0-4.5); HEMATOCRIT 31.8 % (32.4-45.2); HEMOGLOBIN 10.4 GM/dL (10.7-15.3); LYMPH % 16.8 % (8-40); MCHC 32.7 g/dl (32.0-36.0); MEAN CELL VOLUME 94.7 fl (80-96); MEAN PLT VOLUME 6.8 fl (7.5-11.1); MONO % 8.7 % (3.8-10.2); NEUT % 72.2 % (42.8-82.8); PLATELET COUNT 369 K/MM3 (134-434); RBC 3.36 M/mm3 (3.60-5.2); RDW 18.4 % (11.6-15.6); WHITE BLOOD COUNT 6.4 K/mm3 (4.0-10.0)
[2019-04-02 07:33] LABS: INR 2.97 (0.83-1.09); PROTHROMBIN TIME (PATIENT) 35.4 SEC (9.7-13.0)
[2019-04-02 07:45] LABS: ALBUMIN 1.9 g/dl (3.4-5.0); ALK PHOS 95 U/L (45-117); ANION GAP 7 MMOL/L (8-16); BILIRUBIN,TOTAL 0.5 mg/dL (0.2-1); BLOOD UREA NITROGEN 34.9 mg/dL (7-18); CALCIUM 7.7 mg/dL (8.5-10.1); CHLORIDE 108 mmol/L (98-107); CO2 27 mmol/L (21-32); CREATININE 1.7 mg/dL (0.55-1.3); GLUCOSE,RANDOM 92 mg/dL (74-106); MAGNESIUM 1.5 mg/dL (1.8-2.4); PHOSPHOROUS 3.2 mg/dL (2.5-4.9); SGOT/AST 11 U/L (15-37); SGPT/ALT < 6 U/L (13-61); SODIUM 142 mmol/L (136-145); TOT PROT 5.2 g/dl (6.4-8.2)
[2019-04-02 07:46] LABS: POTASSIUM 2.5 mmol/L (3.5-5.1)
[2019-04-02] MEDS ORDERED: MAGNESIUM SULF 50% (8.12 MEQ/2 ML-1 GM VIAL) IVPB ONE (07:49)
[2019-04-02] MEDS ORDERED: SODIUM CHLORIDE 0.9%/KCL 20 MEQ/1,000 ML INFUS.BAG IV SCH (08:00)
[2019-04-02] MEDS ORDERED: KCL 10 MEQ IVPB 10 MEQ/100 ML INFUS.BAG IVPB ONE ×4 (08:07→22:04)
[2019-04-02] MEDS: KCL 10 MEQ IVPB 10 MEQ/100 ML INFUS.BAG IVPB SCH ×6 (08:13→22:07)
[2019-04-02] MEDS ORDERED: SODIUM CHLORIDE IV SCH (08:21)
[2019-04-02] MEDS ORDERED: POTASSIUM ACETATE IV SCH (08:21)
[2019-04-02] MEDS: POTASSIUM CHLORIDE 20 MEQ in SODIUM CHLORIDE 1,000 ML IVPB SCH ×2 (09:09→22:21)
[2019-04-02] MEDS ORDERED: MAGNESIUM SULF 50% (8.12 MEQ/2 ML-1 GM VIAL) ONE ×2 (09:33→09:34)
[2019-04-02] MEDS ORDERED: CEFTRIAXONE 1 GM/50 ML BAG ONE (09:37)
[2019-04-02] MEDS: CEFTRIAXONE 1 GM in DEXTROSE 5%-WATER - 50 ML IVPB SCH (10:13)
[2019-04-02] MEDS ORDERED: ACETAMINOPHEN INJECTION 100 ML IVPB ONE (11:58)
--- NOTE | 2019-04-02 12:11 | PN ---
Progress Note (short form) - Note Progress Note: Attending Surgeon No c/o ?; no flatus or BM VSS AF abdo-softly distended; non tender; o/w negative. AXR's from today pending UC and S growing gram - rods IMP:sbo/UTI PLAN: Maintain NPO/IVF/NGT and IVAB's per primary team for UTI Bahman Pérez MD FACS
[2019-04-02] MEDS ORDERED: METOPROLOL TARTRATE 5 MG/5 ML VIAL IVPUSH PRN (15:16)
--- NOTE | 2019-04-02 15:18 | PN ---
Physical Exam: SUBJECTIVE: Patient seen and examined. She denies abdominal pain. She denies having BM and flatus. OBJECTIVE: Vital Signs Period Temp Pulse Resp BP Sys/Kendall Pulse Ox Last 24 Hr 97.9 F-98.6 F 82-102 16-19 95-110/50-69 99-100 GENERAL: The patient is awake, alert, and fully oriented, in no acute distress. LUNGS: Breath sounds equal, clear to auscultation bilaterally, no wheezes, no crackles, no accessory muscle use. HEART: Irregularly irregular, tachycardic. ABDOMEN: Obese, soft, nontender, (+) mild distention, hypoactive bowel sounds, no guarding, no rebound, no hepatosplenomegaly, no masses. EXTREMITIES: 2+ pulses, warm, well-perfused, trace edema. Laboratory Results - last 24 hr 04/01/19 04/01/19 04/02/19 16:45 16:45 06:40 WBC 6.4 RBC 3.36 L Hgb 10.4 L Hct 31.8 L MCV 94.7 MCH 31.0 MCHC 32.7 RDW 18.4 H Plt Count 369 D MPV 6.8 L Absolute Neuts (auto) 4.6 Neutrophils % 72.2 Lymphocytes % 16.8 D Monocytes % 8.7 D Eosinophils % 1.9 D Basophils % 0.4 Nucleated RBC % 0 PT with INR 38.30 H INR 3.21 H Sodium Potassium Chloride Carbon Dioxide Anion Gap BUN Creatinine Est GFR (CKD-EPI)AfAm Est GFR (CKD-EPI)NonAf Random Glucose Lactic Acid 3.3 H* Calcium Phosphorus Magnesium Total Bilirubin AST ALT Alkaline Phosphatase Total Protein Albumin 04/02/19 04/02/19 04/02/19 06:40 06:40 06:40 WBC RBC Hgb Hct MCV MCH MCHC RDW Plt Count MPV Absolute Neuts (auto) Neutrophils % Lymphocytes % Monocytes % Eosinophils % Basophils % Nucleated RBC % PT with INR 35.40 H INR 2.97 H Sodium 142 Potassium 2.5 L* Chloride 108 H Carbon Dioxide 27 Anion Gap 7 L BUN 34.9 H Creatinine 1.7 H Est GFR (CKD-EPI)AfAm 30.89 Est GFR (CKD-EPI)NonAf 26.65 Random Glucose 92 Lactic Acid 2.1 H Calcium 7.7 L Phosphorus 3.2 Magnesium 1.5 L Total Bilirubin 0.5 AST 11 L ALT < 6 L Alkaline Phosphatase 95 Total Protein 5.2 L Albumin 1.9 L Active Medications Generic Name Dose Route Start Last Admin Trade Name Sugar PRN Reason Stop Dose Admin Acetaminophen 1,000 mg 04/01/19 06:45 04/02/19 12:43 Ofirmev Injection - IVPB Not Given Q6H ANNA Ceftriaxone Sodium 1 gm/ 50 mls @ 100 mls/hr 04/01/19 14:45 04/02/19 10:13 Dextrose IVPB 100 mls/hr DAILY ANNA Administration Protocol Metronidazole 500 mg in 100 mls @ 100 mls/hr 04/01/19 15:15 04/02/19 10:13 Flagyl 500mg Premixed Ivpb - IVPB 100 mls/hr Q8H-IV ANNA Administration Potassium Chloride 20 meq/ 1,010 mls @ 83 mls/hr 04/02/19 08:22 04/02/19 09: 09 Sodium Chloride IVPB 83 mls/hr Q12H ANNA Administration Metoclopramide HCl 10 mg 04/01/19 06:09 Reglan Injection - IVPUSH Q6H PRN NAUSEA AND/OR VOMITING ASSESSMENT/PLAN: This is an 88 year old woman with a history of SBO, diverticulitis, hemicolectomy, HTN, hyperlipidemia, CAD, [place], atrial fib, chronic diastolic heart failure, CVA, PE who presented to the ED with abdominal pain and decreased appetite. 1. SBO - Maintain NGT, NPO - Continue IV fluid - X-rays show dilated SB loops 2. Severe sepsis (leukocytosis, tachycardia, tachypnea, hypotension, lactic acidosis) secondary to UTI, possible diverticular abscess - Hypotension, leukocytosis, tachypnea improved; lactic acidosis improving - Urine culture growing gram neg rods - Continue ceftriaxone, Flagyl, IV fluid 3. Acute kidney injury on stage 3 CKD - Continue IVF - Continue to monitor BUN, creatinine 4. Hypokalemia - Replete potassium 5. Hypomagnesemia - Continue to supplement magnesium 6. CAD, history of UT - Hold aspirin, Pravachol secondary to NPO/NGT - Start Lopressor IV 7. Chronic diastolic heart failure - Hold Lasix secondary to JAROD - Monitor volume status with IV fluid 8. Atrial fib, permanent - Start Lopressor IV for rate control - Hold Eliquis secondary to NPO/NGT - INR 2.97 - start heparin IV once INR 2.0 9. HTN - Antihypertensive medications held secondary to hypotension - Starting Lopressor IV for rate control 10. Hyperlipidemia - Resume Pravachol when able to take PO meds 11. 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 History of PE after orthopedic surgery Visit type - Emergency Visit Emergency Visit: Yes ED Registration Date: 04/01/19 Care time: The patient presented to the Emergency Department on the above date and was hospitalized for further evaluation of their emergent condition. - New Patient This patient is new to me today: No - Critical Care Critical Care patient: No - Discharge Referral Referred to [facility] No
[2019-04-02 17:23] LABS: BLOOD UREA NITROGEN 35.5 mg/dL (7-18); CALCIUM 8.1 mg/dL (8.5-10.1); CREATININE 1.6 mg/dL (0.55-1.3)
[2019-04-02 17:28] LABS: POTASSIUM 2.9 mmol/L (3.5-5.1)
[2019-04-03] MEDS ORDERED: KCL 10 MEQ IVPB 20 MEQ/200 ML INFUS.BAG IVPB ONE (00:41)
[2019-04-03] MEDS: ACETAMINOPHEN 1000 MG/100 ML VIAL (NON FORMULARY) IVPB SCH ×4 (01:07→20:38)
[2019-04-03] MEDS: METOPROLOL TARTRATE 5 MG/5 ML VIAL IVPUSH SCH ×3 (07:04→20:39)
[2019-04-03 07:52] LABS: BASO % 0.5 % (0-2.0); EOS % 3.6 % (0-4.5); HEMATOCRIT 30.9 % (32.4-45.2); HEMOGLOBIN 10.2 GM/dL (10.7-15.3); LYMPH % 17.6 % (8-40); MCH 31.6 pg (25.7-33.7); MCHC 33.1 g/dl (32.0-36.0); MEAN CELL VOLUME 95.5 fl (80-96); MEAN PLT VOLUME 6.9 fl (7.5-11.1); MONO % 7.1 % (3.8-10.2); NEUT % 71.2 % (42.8-82.8); PLATELET COUNT 370 K/MM3 (134-434); RBC 3.24 M/mm3 (3.60-5.2); RDW 18.2 % (11.6-15.6); WHITE BLOOD COUNT 6.5 K/mm3 (4.0-10.0)
[2019-04-03 08:18] LABS: BLOOD UREA NITROGEN 32.9 mg/dL (7-18); CALCIUM 7.8 mg/dL (8.5-10.1); CREATININE 1.3 mg/dL (0.55-1.3); MAGNESIUM 2.1 mg/dL (1.8-2.4); PHOSPHOROUS 2.5 mg/dL (2.5-4.9); POTASSIUM 3.3 mmol/L (3.5-5.1)
[2019-04-03] MEDS ORDERED: CEFTRIAXONE 1 GM/50 ML BAG ONE (10:11)
[2019-04-03] MEDS: CEFTRIAXONE 1 GM in DEXTROSE 5%-WATER - 50 ML IVPB SCH (10:19)
--- NOTE | 2019-04-03 13:44 | PN ---
Progress Note (short form) - Note Progress Note: ID consult dictated imp/reccd 88 yo female admitted from home with SOB now with NGT SBO, diverticular abscess?? UTI dementia JAROD switch to zosyn
[2019-04-03] MEDS: SODIUM CHLORIDE 0.9%/KCL 20 MEQ/1,000 ML INFUS.BAG IV SCH (14:25)
--- NOTE | 2019-04-03 14:29 | PN ---
Physical Exam: SUBJECTIVE: Patient seen and examined. She denies abdominal pain. OBJECTIVE: Vital Signs Period Temp Pulse Resp BP Sys/Kendall Pulse Ox Last 24 Hr 97.5 F-98.2 F 100-106 16-20 91-115/53-65 98-100 GENERAL: The patient is awake, alert, and fully oriented, in no acute distress. LUNGS: Breath sounds equal, clear to auscultation bilaterally, no wheezes, no crackles, no accessory muscle use. HEART: Irregularly irregular, tachycardic. ABDOMEN: Obese, soft, nontender, non-distended, hypoactive bowel sounds, no guarding, no rebound, no hepatosplenomegaly, no masses. EXTREMITIES: 2+ pulses, warm, well-perfused, trace edema. Laboratory Results - last 24 hr 04/02/19 04/03/19 04/03/19 16:23 06:01 06:17 WBC 6.5 RBC 3.24 L Hgb 10.2 L Hct 30.9 L MCV 95.5 MCH 31.6 MCHC 33.1 RDW 18.2 H Plt Count 370 MPV 6.9 L Absolute Neuts (auto) 4.6 Neutrophils % 71.2 Lymphocytes % 17.6 Monocytes % 7.1 Eosinophils % 3.6 D Basophils % 0.5 Nucleated RBC % 0 Sodium 142 Potassium 2.9 L* Chloride 110 H Carbon Dioxide 24 Anion Gap 8 BUN 35.5 H Creatinine 1.6 H Est GFR (CKD-EPI)AfAm 33.23 Est GFR (CKD-EPI)NonAf 28.67 Random Glucose 101 Lactic Acid 1.7 Calcium 8.1 L Phosphorus Magnesium Blood Type Antibody Screen 04/03/19 04/03/19 06:17 09:30 WBC RBC Hgb Hct MCV MCH MCHC RDW Plt Count MPV Absolute Neuts (auto) Neutrophils % Lymphocytes % Monocytes % Eosinophils % Basophils % Nucleated RBC % Sodium 145 Potassium 3.3 L Chloride 114 H Carbon Dioxide 24 Anion Gap 7 L BUN 32.9 H Creatinine 1.3 Est GFR (CKD-EPI)AfAm 42.72 Est GFR (CKD-EPI)NonAf 36.86 Random Glucose 83 Lactic Acid Calcium 7.8 L Phosphorus 2.5 Magnesium 2.1 Blood Type Cancelled Antibody Screen Cancelled Active Medications Generic Name Dose Route Start Last Admin Trade Name Freq PRN Reason Stop Dose Admin Acetaminophen 1,000 mg 04/01/19 06:45 04/03/19 12:57 Ofirmev Injection - IVPB Not Given Q6H [facility] Potassium Chloride/Sodium Chloride 20 meq in 1,000 mls @ 83 mls/hr 04/03/19 08 :20 04/03/19 14:25 Ns+20 Meq Kcl - IV 83 mls/hr ASDIR ANNA Administration Piperacillin Sod/Tazobactam 50 mls @ 100 mls/hr 04/03/19 18:00 Sod 3.375 gm/ Dextrose IVPB Q8H-IV ANNA Protocol Metoclopramide HCl 10 mg 04/01/19 06:09 Reglan Injection - IVPUSH Q6H PRN NAUSEA AND/OR VOMITING Metoprolol Tartrate 5 mg 04/03/19 07:00 04/03/19 13:11 Lopressor Injection - IVPUSH Not Given Q6H [facility] ASSESSMENT/PLAN: This is an 88 year old woman with a history of SBO, diverticulitis, hemicolectomy, HTN, hyperlipidemia, CAD, [place], atrial fib, chronic diastolic heart failure, CVA, PE who presented to the ED with abdominal pain and decreased appetite. 1. SBO - Maintain NGT, NPO - Continue IV fluid - X-ray continues to show SBO 2. Severe sepsis (leukocytosis, tachycardia, tachypnea, hypotension, lactic acidosis) secondary to UTI, possible diverticular abscess - Hypotension, leukocytosis, tachypnea, lactic acidosis improved - Urine culture growing Klebsiella - Ceftriaxone, Flagyl changed to Zosyn - Continue IV fluid 3. Acute kidney injury on stage 3 CKD - BUN, creatinine improving - Continue IVF 4. Hypokalemia - Continue to replete potassium 5. Hypomagnesemia - Improved 6. CAD, history of NC - Hold aspirin, Pravachol secondary to NPO/NGT - Continue Lopressor IV 7. Chronic diastolic heart failure - Lasix held secondary to JAROD - Monitor volume status with IV fluid 8. Atrial fib, permanent - Continue Lopressor IV for rate control - Eliquis held secondary to NPO/NGT - Start heparin IV once INR<2.0 9. HTN - Continue Lopressor IV with parameters 10. Hyperlipidemia - Resume Pravachol when able to take PO meds 11. 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 History of PE after orthopedic surgery Visit type - Emergency Visit Emergency Visit: Yes ED Registration Date: 04/01/19 Care time: The patient presented to the Emergency Department on the above date and was hospitalized for further evaluation of their emergent condition. - New Patient This patient is new to me today: No - Critical Care Critical Care patient: No - Discharge Referral Referred to [facility] No
--- NOTE | 2019-04-03 16:28 | PN ---
Progress Note (short form) - Note Progress Note: SURGERY 88yo F h/o SBO, pt seen and examined at bedside. Pt has baseline dementia, so unable to give reliable history, pt currently denies pain. Vital Signs Temp 97.5 F L 04/03/19 11:55 Pulse 106 H 04/03/19 11:55 Resp 18 04/03/19 11:55 BP 107/60 04/03/19 13:11 Pulse Ox 100 04/03/19 11:55 Intake & Output 04/02/19 04/03/19 04/03/19 23:59 11:59 23:59 Other: Voiding Method Diaper CBC, BMP 04/03/19 06:17 04/03/19 06:17 PE: Gen: a&OX 3 Resp: breathing comfortably Abd: soft, moderately distended, mild tenderness? (pt reaction abnormal) NGT in place with bilious drainage noted. DX: SBO Plan -continue conservative treatment for now: NPO, NGT, IV fluids -dvt and GI ppx -will follow Case discussed with Dr. Pérez who agrees with plan
[2019-04-03 17:48] LABS: INR 2.75 (0.83-1.09); PROTHROMBIN TIME (PATIENT) 32.8 SEC (9.7-13.0)
[2019-04-03] MEDS ORDERED: KCL 10 MEQ IVPB 10 MEQ/100 ML INFUS.BAG IVPB ONE ×2 (18:07→20:17)
[2019-04-03] MEDS: KCL 10 MEQ IVPB 10 MEQ/100 ML INFUS.BAG IVPB SCH ×3 (18:14→22:45)
[2019-04-03] MEDS ORDERED: PIPERACILLIN/TAZOB 3.375 GM 3.375 GM/50 ML BAG IVPB ONE (19:12)
[2019-04-03] MEDS: PIPERACILLIN/TAZOB 3.375 GM 3.375 GM in DEXTROSE 5%-WATER - 50 ML IVPB SCH (19:28)
--- NOTE | 2019-04-03 21:07 | CONS ---
DATE OF CONSULTATION: DATE OF DICTATION: 04/03/2019 INFECTIOUS DISEASE CONSULTATION REQUESTING PHYSICIAN: Hospitalist Service CONSULTING PHYSICIAN: Thea Carter M.D. HISTORY OF PRESENT ILLNESS: This is an 88-year-old female who came to the ER the night of the , admitted on the with poor appetite. She had been seen by her cork molder at home and was noted to have a possible small bowel obstruction. She had had a CAT scan done. She was sent to the ER for evaluation for possible small bowel obstruction. She was having abdominal pain, nausea, and bilious vomiting. In the ER, she was started on ceftriaxone and Flagyl. She had imaging done of her abdomen and pelvis that was notable for bilateral pleural effusion, dilated small bowel loops. The partial obstruction cannot be ruled out, cholelithiasis, left lower quadrant air fluid collection connected to the sigmoid colon; this could represent diverticular abscess or giant diverticulum. There were mild inflammatory changes in that location. Cannot rule out acute diverticulitis. She was admitted by these diagnoses. She was seen by surgery. She had an NG tube placed for decompression of her bowel obstruction, and I am asked to see her for possible UTI. PAST MEDICAL HISTORY: Notable for history of small bowel obstruction. She has a history of diverticulitis, hypertension, hyperlipidemia, atrial fibrillation, and CVA. SURGICAL HISTORY: Notable for hemicolectomy and right knee replacement. SOCIAL HISTORY: No history of cigarette, alcohol, or substance use. She has a history of gout, and currently she is nonambulatory at home. They use a Evelyn lift. She lives with her daughter. ALLERGIES: No known drug allergies. MEDICATION: Include aspirin, Lasix, metoprolol, potassium, Pravachol, Eliquis, vitamin D, vitamin B12, Colace, Feosol, DuoNeb, allopurinol, colchicine. REVIEW OF SYSTEMS: Currently she is resting comfortably. Abdominal distention has resolved. She has not had a bowel movement. PHYSICAL EXAMINATION: General: She is an elderly woman in no acute distress. Vital Signs: She is afebrile. Temperature 97.5, pulse 106, blood pressure 107/60, respiratory rate 18, she is saturating 100% on 3 L. HEENT: Normocephalic. Eyes are anicteric. She has an NG tube draining bilious green fluid. Heart: Regular rate and rhythm. Lungs: Clear to auscultation with diminished breath sounds at the bases. Abdomen: Soft, with minimal bowel sounds. Extremities: Without edema. LABORATORY: White count on admission was 10.5, today is 6.5, hemoglobin 10.2, platelets are 370. Her BUN and creatinine are 32 and 1.3. On admission, they were 34 and 1.7. Lactic acid was 4.3 on admission and was now normalized at 1.7. LFTs are normal. Cultures, her urine culture grew klebsiella resistant to several of the cephalosporins but sensitive to piperacillin/tazobactam. Chest x-ray shows a large heart, some rotation to the left and increased density of the left base. Abdominal x-ray this morning shows continued small bowel obstruction. IMPRESSION: 1. In summary, this is an elderly woman admitted with small bowel obstruction, possible diverticulitis. She is clinically doing better after she was hydrated and received antibiotics. Would treat her for urinary tract infection and for possible diverticulitis with piperacillin/tazobactam at this time. She has already been on antibiotics, see no value to obtaining blood cultures at this point. I spoke at length with her daughter at the bedside. 2. Acute kidney injury improved with hydration. 3. History of dementia. THEA CARTER M.D. [id number]
[2019-04-04] MEDS: ACETAMINOPHEN 1000 MG/100 ML VIAL (NON FORMULARY) IVPB SCH ×4 (00:56→18:23)
[2019-04-04] MEDS: METOPROLOL TARTRATE 5 MG/5 ML VIAL IVPUSH SCH ×4 (01:54→18:50)
[2019-04-04] MEDS ORDERED: DEXTROSE 5%-WATER - 50 ML IVPB ONE ×3 (01:55→17:56)
[2019-04-04] MEDS ORDERED: PIPERACILLIN/TAZOBACTAM 3.375 GM VIAL IVPB ONE ×3 (01:55→17:56)
[2019-04-04] MEDS: PIPERACILLIN/TAZOB 3.375 GM 3.375 GM in DEXTROSE 5%-WATER - 50 ML IVPB SCH ×3 (02:01→18:11)
[2019-04-04] MEDS ORDERED: METOPROLOL TARTRATE 5 MG/5 ML VIAL IVPUSH ONE (02:12)
[2019-04-04] MEDS: SODIUM CHLORIDE 0.9%/KCL 20 MEQ/1,000 ML INFUS.BAG IV SCH ×2 (05:11→13:53)
[2019-04-04] MEDS: KETOCONAZOLE 2% CREAM - 60GM TUBE TP SCH ×2 (05:35→12:09)
[2019-04-04 07:09] LABS: HEMATOCRIT 33.2 % (32.4-45.2); HEMOGLOBIN 10.9 GM/dL (10.7-15.3); MCH 31.8 pg (25.7-33.7); MCHC 32.8 g/dl (32.0-36.0); MEAN CELL VOLUME 96.7 fl (80-96); MEAN PLT VOLUME 6.9 fl (7.5-11.1); PLATELET COUNT 391 K/MM3 (134-434); RBC 3.43 M/mm3 (3.60-5.2); RDW 18.8 % (11.6-15.6); WHITE BLOOD COUNT 9.9 K/mm3 (4.0-10.0)
[2019-04-04 07:35] LABS: CALCIUM 8.4 mg/dL (8.5-10.1); CREATININE 1.2 mg/dL (0.55-1.3); INR 2.94 (0.83-1.09); MAGNESIUM 1.9 mg/dL (1.8-2.4); PHOSPHOROUS 1.8 mg/dL (2.5-4.9); POTASSIUM 5.1 mmol/L (3.5-5.1); PROTHROMBIN TIME (PATIENT) 35.1 SEC (9.7-13.0)
--- NOTE | 2019-04-04 10:48 | PN ---
Progress Note (short form) - Note Progress Note: Attending Surgeon A/t her son she had a BM and is passing flatus VSS AF abdo-soft; less distended and tympanitic NGT 200 cc. IMP: improving sbo PLAN: Continue present tx.; further plan pending results of todays xrays; d/w the patients son. Bahman N> Elisa CORDON FACS
[2019-04-04] MEDS ORDERED: POTASSIUM CHLORIDE 10 MEQ in SODIUM CHLORIDE 0.45% 1,000 ML IVPB SCH (13:45)
[2019-04-04] MEDS: D5-1/2NS+10 MEQ KCL - 10 MEQ/1,000 ML INFUS.BAG IV SCH (13:49)
--- NOTE | 2019-04-04 16:04 | PN ---
Physical Exam: SUBJECTIVE: Patient seen and examined, denies abdominal pain. reports 2 bms overnight. dark green and liquidy. OBJECTIVE: Patient is an 88 year old female with a significant past medical history of previous SBO s/p hemicolectomy, diverticulitis, HTN, HLD, afib (on eliquis), CVA, presents to the ED with complaints of vague abdominal pain and decreased appetite, PE who presented to the ED on 04/01/2019 with abdominal pain and decreased appetite. abdominal xray; minimal improvement. Vital Signs Period Temp Pulse Resp BP Sys/Kendall Pulse Ox Last 24 Hr 97.6 F-98.1 F 107-132 18-18 93-118/48-67 97-100 GENERAL: The patient is awake, alert in no acute distress. HEAD: Normal with no signs of trauma. ngt in place EYES: PERRL, extraocular movements intact, sclera anicteric, conjunctiva clear. No ptosis. ENT: Ears normal, nares patent, oropharynx clear without exudates NECK: Trachea midline, full range of motion, supple. LUNGS: Breath sounds equal, clear to auscultation bilaterally HEART: Regular rate and rhythm ABDOMEN: Soft, nontender, hyperactive bowel sounds. EXTREMITIES: no edema. NEUROLOGICAL: Normal speech, gait not observed. PSYCH: Normal mood, normal affect. SKIN: Warm, dry, normal turgor, no rashes or lesions noted Laboratory Results - last 24 hrs 04/03/19 04/04/19 04/04/19 17:00 05:55 05:55 WBC 9.9 RBC 3.43 L Hgb 10.9 Hct 33.2 MCV 96.7 H MCH 31.8 MCHC 32.8 RDW 18.8 H Plt Count 391 MPV 6.9 L PT with INR 32.80 H INR 2.75 H Sodium 146 H Potassium 5.1 Chloride 119 H Carbon Dioxide 19 L Anion Gap 8 BUN 28.0 H Creatinine 1.2 Est GFR (CKD-EPI)AfAm 47.06 Est GFR (CKD-EPI)NonAf 40.60 Random Glucose 65 L Calcium 8.4 L Phosphorus 1.8 L Magnesium 1.9 04/04/19 04/04/19 05:55 12:43 WBC RBC Hgb Hct MCV MCH MCHC RDW Plt Count MPV PT with INR 35.10 H INR 2.94 H Sodium Potassium 4.5 Chloride Carbon Dioxide Anion Gap BUN Creatinine Est GFR (CKD-EPI)AfAm Est GFR (CKD-EPI)NonAf Random Glucose Calcium Phosphorus Magnesium Active Medications Generic Name Dose Route Start Last Admin Trade Name Freq PRN Reason Stop Dose Admin Acetaminophen 1,000 mg 04/01/19 06:45 04/04/19 13:49 Ofirmev Injection - IVPB 1,000 mg Q6H ANNA Administration Diphenhydramine HCl 12.5 mg 04/04/19 02:31 04/04/19 03:48 Benadryl Injection - IVPUSH 12.5 mg Q8H PRN Administration FOR ITCHING Piperacillin Sod/Tazobactam 50 mls @ 100 mls/hr 04/03/19 18:00 04/04/19 12:03 Sod 3.375 gm/ Dextrose IVPB 100 mls/hr Q8H-IV ANNA Administration Protocol Potassium Chloride/Dextrose/Sod Cl 10 meq in 1,000 mls @ 83 mls/hr 04/04/19 13 :45 04/04/19 13:49 D5-1/2ns+10 Meq Kcl - IV 83 mls/hr ASDIR ANNA Administration Ketoconazole 1 applic 04/04/19 02:15 04/04/19 12:09 Nizoral 2% Cream - TP 1 applic DAILY ANNA Administration Metoclopramide HCl 10 mg 04/01/19 06:09 04/04/19 03:46 Reglan Injection - IVPUSH 10 mg Q6H PRN Administration NAUSEA AND/OR VOMITING Metoprolol Tartrate 5 mg 04/03/19 07:00 04/04/19 13:49 Lopressor Injection - IVPUSH Not Given Q6H ANNA ASSESSMENT/PLAN: Problem List - Problems (1) SBO (small bowel obstruction) Assessment/Plan: abdominal xray with minimal improvement, however no abdominal pain and is without nausea ngt with 150cc output. repeat abdominal xray in a.m and monitor for improvement surgery following Code(s): K56.609 - UNSP INTESTNL OBST, UNSP TO PARTIAL VERSUS COMPLETE OBST (2) JAROD (acute kidney injury) Assessment/Plan: monitor with daily labs Code(s): N17.9 - ACUTE KIDNEY FAILURE, UNSPECIFIED (3) Bowel obstruction Assessment/Plan: surgery eval serial abdominal xrays Code(s): K56.609 - UNSP INTESTNL OBST, UNSP TO PARTIAL VERSUS COMPLETE OBST Qualifiers: Intestinal obstruction type: unspecified Intestinal obstruction extent: partial Qualified Code(s): K56.600 - Partial intestinal obstruction, unspecified as to cause (4) CVA (cerebral vascular accident) Assessment/Plan: history of cva, has residual expressive aphagia PT ordered Code(s): I63.9 - CEREBRAL INFARCTION, UNSPECIFIED (5) Severe sepsis Assessment/Plan: secondary to UTI, possible diverticular abscess lactic acidosis improving urine cultures pending final identification of bacteria on ceftriaxone, flagyl and zosyn on ivf d5 1/2 ns with 10 meq Code(s): A41.9 - SEPSIS, UNSPECIFIED ORGANISM; R65.20 - SEVERE SEPSIS WITHOUT SEPTIC SHOCK (6) CAD (coronary artery disease) Code(s): I25.10 - ATHSCL HEART DISEASE OF [place] CORONARY ARTERY W/O ANG PCTRS (7) Chronic diastolic (congestive) heart failure Code(s): I50.32 - CHRONIC DIASTOLIC (CONGESTIVE) HEART FAILURE (8) Hypertension Assessment/Plan: monitor q 4 Code(s): I10 - ESSENTIAL (PRIMARY) HYPERTENSION (9) Hx pulmonary embolism Assessment/Plan: on eliquis, will initiated heparin drip once inr less than 2 Code(s): Z86.711 - PERSONAL HISTORY OF PULMONARY EMBOLISM (10) Prophylactic measure Code(s): Z29.9 - ENCOUNTER FOR PROPHYLACTIC MEASURES, UNSPECIFIED Visit type - Emergency Visit Emergency Visit: Yes ED Registration Date: 04/01/19 Care time: The patient presented to the Emergency Department on the above date and was hospitalized for further evaluation of their emergent condition. - New Patient This patient is new to me today: Yes Date on this admission: 04/04/19 - Critical Care Critical Care patient: No - Discharge Referral Referred to [facility] No
--- NOTE | 2019-04-04 22:02 | CONSULT ---
Consult Consult Specialty:: Podiatry Reason for Consultation:: Red hot swollen left 1st mpj. - History of Present Illness Chief Complaint: Pain - History Source Limitations to Obtaining History: Poor Historian - Past Medical History Cardio/Vascular: Yes: CHF, HTN, Hyperlipdemia Renal/: Yes: Other (mitch in the past) - Alcohol/Substance Use Hx Alcohol Use: No - Smoking History Smoking history: Never smoked Have you smoked in the past 12 months: No Home Medications - Allergies Allergies/Adverse Reactions: Allergies Allergy/AdvReac Type Severity Reaction Status Date / Time No Known Allergies Allergy Verified 11/07/18 17:29 - Home Medications Home Medications: Ambulatory Orders Aspirin 81 mg PO DAILY 09/06/17 Furosemide [Lasix -] 40 mg PO BID 09/06/17 Metoprolol Succinate [Toprol XL -] 100 mg PO BID 09/06/17 Potassium Chloride [K-Dur -] 20 meq PO DAILY 09/06/17 Pravastatin Sodium [Pravachol] 40 mg PO DAILY 09/06/17 Apixaban [Eliquis] 5 mg PO BID 09/07/17 Ergocalciferol [Vitamin D2] 50,000 unit PO Q7D@1000 10/27/18 Cyanocobalamin [Vitamin B12 -] 1,000 mcg PO DAILY #30 tablet 11/11/18 Docusate Sodium [Colace] 100 mg PO BID #60 capsule 11/11/18 Ferrous Sulfate [Feosol] 325 mg PO BID #60 ud 11/11/18 Albuterol 2.5/Ipratropium 0.5 [Duoneb -] 1 neb NEB QID PRN 04/01/19 Allopurinol [Zyloprim -] 100 mg PO WEEKLY 04/01/19 Colchicine 0.6 mg PO Q2D 04/01/19 Nystatin [Nyamyc] 100,000 unit TP BID 04/01/19 Sulfacetamide Sodium 10% [Bleph-10 Ophthalmic Solution -] 1 drop OU QID Physical Exam Vital Signs: Vital Signs Temperature 98.1 F 04/04/19 18:46 Pulse Rate 115 H 04/04/19 18:46 Respiratory Rate 16 04/04/19 18:46 Blood Pressure 104/60 04/04/19 18:46 O2 Sat by Pulse Oximetry (%) 98 04/03/19 23:00 Extremities: Yes: Other (nvsgi, +hav right worse than left, +draining wound left 1st mpj medial,) Labs: CBC, BMP 04/04/19 05:55 04/04/19 12:43 Assessment/Plan severe hav right more than left draining abscess left 1st mpj medial aspect Wound culture ordered. Betadine dressing. Xray b/l feet. Will follow.
--- NOTE | 2019-04-04 22:33 | CONS ---
DATE OF CONSULTATION: DATE OF DICTATION: 04/04/2019 REQUESTING PHYSICIAN: Jensen Doshi M.D. REASON FOR CONSULTATION: Cardiology consultation. CHIEF COMPLAINT: Abdominal pain, decreased appetite, diarrhea, nausea, retching. HISTORY OF PRESENT ILLNESS: The patient is an 88-year-old female with history of coronary artery disease, remote myocardial infarction, status post PCI, permanent atrial fibrillation, hypertension, hypertensive cardiovascular disease, hypercholesterolemia, history of intestinal obstruction, history of pericolic abscess. Most of the history was obtained from the chart. She also is known to have congestive heart failure and history of gout. Patient was noted to be lethargic. There is no history of chest pain or discomfort available, no history of dyspnea, paroxysmal nocturnal dyspnea, or orthopnea. PAST HISTORY: As mentioned in the history of present illness. SURGICAL HISTORY: Status post right colon resection. SOCIAL HISTORY: Nonsmoker. No history of alcohol use. FAMILY HISTORY: Not available. REVIEW OF SYSTEMS: Not available except for as mentioned in the history of present illness. ALLERGIES: None known. MEDICATION: Current medications are as follows: 1. IV acetaminophen 1000 mg IV q.6 h. 2. Piperacillin and tazobactam IV q.8 h. 3. Ketoconazole 1 application daily. 4. Metoprolol tartrate 5 mg IV push q.6 h. 5. Benadryl 12.5 mg IV q.8 h. p.r.n. 6. Reglan 10 mg IV push q.6 h. p.r.n. 7. Potassium chloride 10 mEq 83 mL per hour IV. PHYSICAL EXAMINATION: General: An 88-year-old female was in no acute distress. There was an NG tube in place. There was no pallor or cyanosis, no clubbing or jaundice. Vital signs: Blood pressure 104/60 mmHg. Pulse 115 beats per minute and irregularly irregular. Temperature 98.1 degrees Fahrenheit. Respirations 16 per minute. Neck: Supple. No jugulovenous distention. Carotids were 2+, upstrokes were normal, no bruits were heard, and there was no thyromegaly appreciated. Heart: PMI was in the 5th intercostal space, no heaves or thrills, S1 was variable S2 was normal. Unable to appreciate a murmur or gallop. Lungs: Clear on auscultation. Abdomen: Protuberant, distended. No organomegaly was appreciated. There was no rebound tenderness elicited. Bowel sounds were not heard. Extremities: No calf tenderness or dependent edema. LABORATORY DATA: A CBC April 04, 2019: WBC 9900. Hemoglobin was 10.9 g/dL. Platelet count was 391,000. Electrolytes: Sodium 146, potassium 5.1, chloride 119, CO2 of 19 mmol/L. BUN 28, creatinine 1.2 mg/dL. Calcium 8.4, phosphorus 1.8, magnesium 11.9 mg/dL. X-ray chest was reported as follows. Single view of the chest reveals an NG tube with in the gastric fundus. There is large heart, , rotation to the left, and some increased intensity at the left base. Correlation recommended. ECG is not available. IMPRESSION: 1. History of coronary artery disease, status post remote myocardial infarction, status post percutaneous coronary intervention/stenting. 2. Hypertension, hypertensive cardiovascular disease, presently normotensive. 3. Hypercholesterolemia. 4. Permanent atrial fibrillation with mostly controlled ventricular response. RECOMMENDATION: 1. ECG. 2. Continue beta blockers as prescribed. 3. Anticoagulation should be resumed if there are no contraindications. 4. Further suggestions as necessary. 5. Prognosis guarded. Thank you for your referral. Time spent 45 minutes. JOSEPH MENDOZA M.D. [id number]
[2019-04-05] MEDS: ACETAMINOPHEN 1000 MG/100 ML VIAL (NON FORMULARY) IVPB SCH ×4 (00:56→18:53)
[2019-04-05] MEDS ORDERED: PIPERACILLIN/TAZOBACTAM 3.375 GM VIAL IVPB ONE ×3 (02:42→17:09)
[2019-04-05] MEDS ORDERED: DEXTROSE 5%-WATER - 50 ML IVPB ONE ×3 (02:43→17:10)
[2019-04-05] MEDS: METOPROLOL TARTRATE 5 MG/5 ML VIAL IVPUSH SCH ×4 (02:50→18:54)
[2019-04-05] MEDS: PIPERACILLIN/TAZOB 3.375 GM 3.375 GM in DEXTROSE 5%-WATER - 50 ML IVPB SCH ×3 (02:56→17:25)
[2019-04-05] MEDS: KETOCONAZOLE 2% CREAM - 60GM TUBE TP SCH (11:13)
--- NOTE | 2019-04-05 11:21 | PN ---
Progress Note (short form) - Note Progress Note: Pt seen, family at bedside requesting pt not be woken as she has been up all ngiht. Report pt states pain has improved, requesting to go home. Has not been oob. Had 3 BMs yesterday, passing flatus. NPO. Voiding without issue. Denies cp/ sob, n/v/d. Vital Signs Temp 97.9 F 04/05/19 06:00 Pulse 121 H 04/05/19 06:00 Resp 18 04/05/19 06:00 BP 109/53 L 04/05/19 06:00 Pulse Ox 98 04/04/19 21:00 Intake & Output 04/04/19 04/04/19 04/05/19 11:59 23:59 11:59 Intake Total 0 332 0 Output Total 200 Balance -200 332 0 Intake: IV 332 D5-1/2NS+10 MEQ KCL - 10 332 meq In 1,000 ml @ 83 mls/ hr IV ASDIR ANNA Rx#: [id number] Oral 0 0 0 Output: Gastric Drainage 200 Other: Voiding Method Incontinent Diaper Diaper # Unmeasured Voids Void 1 1 Bowel Movement Yes Yes No # Bowel Movements 2 CBC, BMP 04/04/19 05:55 04/04/19 12:43 Gen: Asleep, family at bedside ENT: NGT in place draining moderate bilious drainage Abdo: soft, nondistended, + bowel sounds A/P: 88 y/o F w/ PMHx previous SBO s/p hemicolectomy, diverticulitis, HTN, HLD, afib (on eliquis), CVA, admitted 03/31 with abdo pain and decreased appeitite, found to have recurrent SBO. NGT to gravity-drainage not documented overnight -Will f/u Am xray -May take NGtube out later today -Continue NPO, IVF -dvt and GI ppx -will follow d/w attending Dr Pérez
--- NOTE | 2019-04-05 11:50 | PN ---
Physical Exam: SUBJECTIVE: Patient seen and examined at the bedside. daughter reports that patient did not sleep last night. OBJECTIVE: NGT removed by surgery inr 4.23, accuracy to be confirmed by a repeat inr today will send for a head ct as she appears more confused today with garbled speech. daughter at bedside. Patient is an 88 year old female with a significant past medical history of previous SBO s/p hemicolectomy, diverticulitis, HTN, HLD, afib (on eliquis), CVA, presents to the ED with complaints of vague abdominal pain and decreased appetite, PE who presented to the ED on 04/01/2019 with abdominal pain and decreased appetite. NGT tube placed on admission with noted drainage, removed today. patient started on clears. She is more lethargic with garbled speech and a head ct is ordered. Her INR is reported to be 4.23, but phlebotomy was having difficulty with blood draw this morning. will need to repeat inr. abdominal xray; minimal improvement Vital Signs Period Temp Pulse Resp BP Sys/Kendall Pulse Ox Last 24 Hr 97.9 F-98.1 F 111-121 16-18 93-109/53-60 98 GENERAL: The patient is awake, slightly more lethargic today. speech slightly garbled. HEAD: Normal with no signs of trauma. ngt removed. EYES: PERRL, extraocular movements intact, sclera anicteric, conjunctiva clear. No ptosis. ENT: Ears normal, nares patent, oropharynx clear without exudates NECK: Trachea midline, full range of motion, supple. LUNGS: Breath sounds equal, clear to auscultation bilaterally HEART: Regular rate and rhythm ABDOMEN: Soft, nontender, hyperactive bowel sounds. obese abdomen EXTREMITIES: no edema. NEUROLOGICAL: garbled speech, gait not observed. PSYCH: Normal mood, normal affect. SKIN: Warm, dry, normal turgor, no rashes or lesions noted Laboratory Results - last 24 hr 04/04/19 12:43 Potassium 4.5 Active Medications Generic Name Dose Route Start Last Admin Trade Name Freq PRN Reason Stop Dose Admin Acetaminophen 1,000 mg 04/01/19 06:45 04/05/19 06:48 Ofirmev Injection - IVPB 1,000 mg Q6H ANNA Administration Diphenhydramine HCl 12.5 mg 04/04/19 02:31 04/05/19 02:51 Benadryl Injection - IVPUSH 12.5 mg Q8H PRN Administration FOR ITCHING Piperacillin Sod/Tazobactam 50 mls @ 100 mls/hr 04/03/19 18:00 04/05/19 11:08 Sod 3.375 gm/ Dextrose IVPB 100 mls/hr Q8H-IV ANNA Administration Protocol Potassium Chloride/Dextrose/Sod Cl 10 meq in 1,000 mls @ 83 mls/hr 04/04/19 13 :45 04/04/19 13:49 D5-1/2ns+10 Meq Kcl - IV 83 mls/hr ASDIR ANNA Administration Ketoconazole 1 applic 04/04/19 02:15 04/05/19 11:13 Nizoral 2% Cream - TP 1 applic DAILY ANNA Administration Metoclopramide HCl 10 mg 04/01/19 06:09 04/04/19 03:46 Reglan Injection - IVPUSH 10 mg Q6H PRN Administration NAUSEA AND/OR VOMITING Metoprolol Tartrate 5 mg 04/03/19 07:00 04/05/19 06:36 Lopressor Injection - IVPUSH Not Given Q6H ANNA ASSESSMENT/PLAN: Problem List - Problems (1) SBO (small bowel obstruction) Assessment/Plan: abdominal xray with partial SBO, ngt removed by surgery and patient started on clears. monitor intake and output. will restart home medications once patient is able to fully tolerate meal Code(s): K56.609 - UNSP INTESTNL OBST, UNSP TO PARTIAL VERSUS COMPLETE OBST (2) JAROD (acute kidney injury) Assessment/Plan: monitor with daily labs, improving Code(s): N17.9 - ACUTE KIDNEY FAILURE, UNSPECIFIED (3) Bowel obstruction Assessment/Plan: surgery eval serial abdominal xrays shows partial small bowel obs. ngt removed had 2 bms yesterday Code(s): K56.609 - UNSP INTESTNL OBST, UNSP TO PARTIAL VERSUS COMPLETE OBST Qualifiers: Intestinal obstruction type: unspecified Intestinal obstruction extent: partial Qualified Code(s): K56.600 - Partial intestinal obstruction, unspecified as to cause (4) CVA (cerebral vascular accident) Assessment/Plan: history of cva, has residual expressive aphagia however having more delayed speech, will order head ct and consult neuro. Code(s): I63.9 - CEREBRAL INFARCTION, UNSPECIFIED (5) Severe sepsis Assessment/Plan: secondary to UTI, possible diverticular abscess lactic acidosis resolved urine cultures pending final identification of bacteria on ceftriaxone, flagyl and zosyn on ivf d5 1/2 ns with 10 meq Code(s): A41.9 - SEPSIS, UNSPECIFIED ORGANISM; R65.20 - SEVERE SEPSIS WITHOUT SEPTIC SHOCK (6) CAD (coronary artery disease) Code(s): I25.10 - ATHSCL HEART DISEASE OF [place] CORONARY ARTERY W/O ANG PCTRS (7) Chronic diastolic (congestive) heart failure Code(s): I50.32 - CHRONIC DIASTOLIC (CONGESTIVE) HEART FAILURE (8) Hypertension Assessment/Plan: monitor q 4 Code(s): I10 - ESSENTIAL (PRIMARY) HYPERTENSION (9) Hx pulmonary embolism Assessment/Plan: on eliquis, but will hold due to elevated inr, repeat inr today Code(s): Z86.711 - PERSONAL HISTORY OF PULMONARY EMBOLISM (10) Prophylactic measure Code(s): Z29.9 - ENCOUNTER FOR PROPHYLACTIC MEASURES, UNSPECIFIED Visit type - Emergency Visit Emergency Visit: Yes ED Registration Date: 04/01/19 Care time: The patient presented to the Emergency Department on the above date and was hospitalized for further evaluation of their emergent condition. - New Patient This patient is new to me today: No - Critical Care Critical Care patient: No - Discharge Referral Referred to [facility] No
--- NOTE | 2019-04-05 12:03 | PN ---
Progress Note (short form) - Note Progress Note: Attending Surgeon Had BM and flatus; no c/o abdo-softlt distended and tympanitic; no tenderness xrays reviewed-air in colon IMP: resolving obstruction PLAN:NGT removed; suggest trial of clear liquids and advance as tolerated. Bahman Pérez MD FACS
[2019-04-05 12:21] LABS: BASO % 0.9 % (0-2.0); EOS % 3.3 % (0-4.5); HEMATOCRIT 33.3 % (32.4-45.2); HEMOGLOBIN 10.7 GM/dL (10.7-15.3); LYMPH % 15.3 % (8-40); MCH 31.2 pg (25.7-33.7); MCHC 32.2 g/dl (32.0-36.0); MEAN CELL VOLUME 97.2 fl (80-96); MEAN PLT VOLUME 6.9 fl (7.5-11.1); NEUT % 76.5 % (42.8-82.8); PLATELET COUNT 326 K/MM3 (134-434); RBC 3.43 M/mm3 (3.60-5.2); RDW 18.6 % (11.6-15.6); WHITE BLOOD COUNT 9.9 K/mm3 (4.0-10.0)
[2019-04-05 12:33] LABS: PROTHROMBIN TIME (PATIENT) 50.7 SEC (9.7-13.0)
[2019-04-05 12:59] LABS: ALBUMIN 1.8 g/dl (3.4-5.0); BLOOD UREA NITROGEN 22.1 mg/dL (7-18); CALCIUM 8.5 mg/dL (8.5-10.1); CREATININE 1.2 mg/dL (0.55-1.3); POTASSIUM 3.6 mmol/L (3.5-5.1); TOT PROT 5.2 g/dl (6.4-8.2)
[2019-04-05 13:19] LABS: INR 4.23 (0.83-1.09)
[2019-04-05 16:01] LABS: INR 3.15 (0.83-1.09); PROTHROMBIN TIME (PATIENT) 37.6 SEC (9.7-13.0)
[2019-04-05] MEDS: D5-1/2NS+10 MEQ KCL - 10 MEQ/1,000 ML INFUS.BAG IV SCH ×2 (17:17→17:25)
--- NOTE | 2019-04-05 19:12 | CON.NEURO ---
Consult - Past Medical History Cardio/Vascular: Yes: CHF, HTN, Hyperlipdemia Renal/: Yes: Other (mitch in the past) - Alcohol/Substance Use Hx Alcohol Use: No - Smoking History Smoking history: Never smoked Have you smoked in the past 12 months: No Home Medications - Allergies Allergies/Adverse Reactions: Allergies Allergy/AdvReac Type Severity Reaction Status Date / Time No Known Allergies Allergy Verified 11/07/18 17:29 - Home Medications Home Medications: Ambulatory Orders Aspirin 81 mg PO DAILY 09/06/17 Furosemide [Lasix -] 40 mg PO BID 09/06/17 Metoprolol Succinate [Toprol XL -] 100 mg PO BID 09/06/17 Potassium Chloride [K-Dur -] 20 meq PO DAILY 09/06/17 Pravastatin Sodium [Pravachol] 40 mg PO DAILY 09/06/17 Apixaban [Eliquis] 5 mg PO BID 09/07/17 Ergocalciferol [Vitamin D2] 50,000 unit PO Q7D@1000 10/27/18 Cyanocobalamin [Vitamin B12 -] 1,000 mcg PO DAILY #30 tablet 11/11/18 Docusate Sodium [Colace] 100 mg PO BID #60 capsule 11/11/18 Ferrous Sulfate [Feosol] 325 mg PO BID #60 ud 11/11/18 Albuterol 2.5/Ipratropium 0.5 [Duoneb -] 1 neb NEB QID PRN 04/01/19 Allopurinol [Zyloprim -] 100 mg PO WEEKLY 04/01/19 Colchicine 0.6 mg PO Q2D 04/01/19 Nystatin [Nyamyc] 100,000 unit TP BID 04/01/19 Sulfacetamide Sodium 10% [Bleph-10 Ophthalmic Solution -] 1 drop OU QID Physical Exam-Neuro Vital Signs: Vital Signs Temperature 98.4 F 04/05/19 15:40 Pulse Rate 86 04/05/19 15:40 Respiratory Rate 18 04/05/19 15:40 Blood Pressure 105/62 04/05/19 15:40 O2 Sat by Pulse Oximetry (%) 97 04/05/19 09:00 Labs: CBC, BMP 04/05/19 11:50 04/05/19 11:50 INR, PTT INR 3.15 (0.83-1.09) H 04/05/19 15:00 Assessment/Plan cc Confusion and slurring of speech HPI 88 year old female history of SBO s/p hemicolectomy, diverticulitis, HTN, HLD, afib (on eliquis), CVA, presented to hospital for abdominal pain and suspected to have SBO. Patient is on eliquis and her inr was in 4s, and her eliquis and aspirin was on hold . She was dysarthric and as per family she was not confused. She could not sleep on april 03 and after getting benadryl today she is sleeping now. Patient has ct head showed old lacunar stroke in left frontal region and no acute bleeding. She is moving all extremity, There is no fever or seizure like activity. PAST MEDICAL HISTORY: see above PAST SURGICAL HISTORY: hemicolectomy; R knee replacement Social History: Smoking:denies Alcohol:denies Drugs: denies Allergies No Known Allergies Allergy (Verified 11/07/18 17:29) HOME MEDICATIONS: Home Medications Medication Instructions Recorded Aspirin 81 mg PO DAILY 09/06/17 Furosemide [Lasix -] 40 mg PO BID 09/06/17 Metoprolol Succinate [Toprol XL -] 100 mg PO BID 09/06/17 Potassium Chloride [K-Dur -] 20 meq PO DAILY 09/06/17 Pravastatin Sodium [Pravachol] 40 mg PO DAILY 09/06/17 Apixaban [Eliquis] 5 mg PO BID 09/07/17 Ergocalciferol [Vitamin D2] 50,000 unit PO Q7D@1000 10/27/18 Cyanocobalamin [Vitamin B12 -] 1,000 mcg PO DAILY #30 tablet 11/11/18 Docusate Sodium [Colace] 100 mg PO BID #60 capsule 11/11/18 Ferrous Sulfate [Feosol] 325 mg PO BID #60 ud 11/11/18 Albuterol 2.5/Ipratropium 0.5 1 neb NEB QID PRN 04/01/19 [Duoneb -] Allopurinol [Zyloprim -] 100 mg PO WEEKLY 04/01/19 Colchicine 0.6 mg PO Q2D 04/01/19 Nystatin [Nyamyc] 100,000 unit TP BID 04/01/19 Sulfacetamide Sodium 10% [Bleph-10 1 drop OU QID 04/01/19 Ophthalmic Solution -] ROS,FH,SH reviewed in chart NEUROLOGICAL EXAMIANTION sleepy and able to wake her up ( she keep going back to sleep , as she has not slept for two days) neck is supple afebrile , vss, eomi, puils reactive no face asymmetry moving all ext Assessment/Plan delirium secondary to intercurrent illness and medication, and hospitalization. Unlikley to be new stroke , eliquis is on hold as INR was High Plan: no need for eeg or mri at this time - suggest to watch her - continue to follow her continue supprotive care Thanking you so much Dino Rodriguez MD
--- NOTE | 2019-04-05 19:38 | PN ---
Progress Note (short form) - Note Progress Note: 88-year-old female known case of coronary artery disease, remote myocardial infarction, status post PCI, atrial fibrillation, status post cerebrovascular accident, hypertension. Admitted with intestinal obstructionan was being treated conservatively with an NG tube which has been removed. Patient was found to have speech difficulties and was dysarthric and confused but was fully awake.there is no history of recent chest pain or discomfort or shortness of breath. Active Medications Generic Name Dose Route Start Last Admin Trade Name Freq PRN Reason Stop Dose Admin Acetaminophen 1,000 mg 04/01/19 06:45 04/05/19 18:53 Ofirmev Injection - IVPB 1,000 mg Q6H ANNA Administration Diphenhydramine HCl 12.5 mg 04/04/19 02:31 04/05/19 02:51 Benadryl Injection - IVPUSH 12.5 mg Q8H PRN Administration FOR ITCHING Piperacillin Sod/Tazobactam 50 mls @ 100 mls/hr 04/03/19 18:00 04/05/19 17:25 Sod 3.375 gm/ Dextrose IVPB 100 mls/hr Q8H-IV ANNA Administration Protocol Potassium Chloride/Dextrose/Sod Cl 10 meq in 1,000 mls @ 83 mls/hr 04/04/19 13 :45 04/05/19 17:25 D5-1/2ns+10 Meq Kcl - IV 83 mls/hr ASDIR ANNA Administration Ketoconazole 1 applic 04/04/19 02:15 04/05/19 11:13 Nizoral 2% Cream - TP 1 applic DAILY ANNA Administration Metoclopramide HCl 10 mg 04/01/19 06:09 04/04/19 03:46 Reglan Injection - IVPUSH 10 mg Q6H PRN Administration NAUSEA AND/OR VOMITING Metoprolol Tartrate 5 mg 04/03/19 07:00 04/05/19 18:54 Lopressor Injection - IVPUSH Not Given Q6H ANNA 88-year-old obese female with difficulty in speaki and appeared mentally confuse. No pallor, cyanosis, clubbing or jaundice noted. Last Vital Signs Temp Pulse Resp BP Pulse Ox 98.4 F 86 18 105/62 97 04/05/19 15:40 04/05/19 15:40 04/05/19 15:40 04/05/19 15:40 04/05/19 09:00 Neck: Supple, no jugular venous distention, carotids were equal. No bruits were heard. Heart: PMI was in the fifth ICS,no heaves or thrills. S1 was variable, S2 was normal, no murmur or gallops wer heard. lungs: Clear on auscultation. Abdomen: Protuberant, obese, nontender, no rebound tendernes, no hepatosplenomegaly was appreciated. Extremities: No calf tenderness or dependent edema. CBC, BMP 04/05/19 11:50 04/05/19 11:50 INR, PTT INR 3.15 (0.83-1.09) H 04/05/19 15:00 Impression: 1. Coronary artery disease, history of remote myocar status post PCI, stable angina pectoris. 2. New onset of confusion and speech difficulties, etiology to be determined, possibility of cerebrovascular event needs exclusion. 3. Permanent atrial fibrillation. 4. Recent intestinal obstruction. 5. Anemia. Recommendations: 1. Neurological evaluation. 2. Close follow-up of INR.(Patient is not anticoagulated. 3. ECG. 4. Troponin levels. Keagan Turner MD.
--- NOTE | 2019-04-05 21:12 | PN ---
Progress Note (short form) - Note Progress Note: FUV left foot. Aide present. vss +severe deformity b/l 1st mpj b/l feet, +draining abscess, no wound culture done as nurse could not find wound apparently, abscess? gouty tophi? Wound culture done by me. Sent down to microbiology. Betadine dressing applied. Will follow. xrays reviewed.
[2019-04-06] MEDS ORDERED: PIPERACILLIN/TAZOBACTAM 3.375 GM VIAL IVPB ONE ×3 (00:37→17:05)
[2019-04-06] MEDS ORDERED: DEXTROSE 5%-WATER - 50 ML IVPB ONE ×3 (00:37→17:05)
[2019-04-06] MEDS: METOPROLOL TARTRATE 5 MG/5 ML VIAL IVPUSH SCH ×3 (00:41→14:03)
[2019-04-06] MEDS: ACETAMINOPHEN 1000 MG/100 ML VIAL (NON FORMULARY) IVPB SCH ×2 (00:48→05:52)
[2019-04-06] MEDS: PIPERACILLIN/TAZOB 3.375 GM 3.375 GM in DEXTROSE 5%-WATER - 50 ML IVPB SCH ×3 (01:19→17:18)
--- NOTE | 2019-04-06 09:09 | PN ---
Physical Exam: SUBJECTIVE: Patient seen and examined. She has no complaints. She is tolerating clear liquids. OBJECTIVE: Vital Signs Period Temp Pulse Resp BP Sys/Kendall Pulse Ox Last 24 Hr 98.1 F-99.7 F 86-119 18-18 97-131/56-73 97 GENERAL: The patient is awake, alert, and fully oriented, in no acute distress. LUNGS: Breath sounds equal, clear to auscultation bilaterally, no wheezes, no crackles, no accessory muscle use. HEART: Regular rate and rhythm, S1, S2 without murmur, rub or gallop. ABDOMEN: Obese, soft, nontender, nondistended, normoactive bowel sounds, no guarding, no rebound, no hepatosplenomegaly, no masses. EXTREMITIES: 2+ pulses, warm, well-perfused, no edema. Laboratory Results - last 24 hr 04/05/19 04/05/19 04/05/19 11:50 11:50 11:50 WBC 9.9 RBC 3.43 L Hgb 10.7 Hct 33.3 MCV 97.2 H MCH 31.2 MCHC 32.2 RDW 18.6 H Plt Count 326 MPV 6.9 L Absolute Neuts (auto) 7.6 Neutrophils % 76.5 Lymphocytes % 15.3 Monocytes % 4.0 Eosinophils % 3.3 Basophils % 0.9 Nucleated RBC % 0 PT with INR 50.70 H INR 4.23 H* Sodium 148 H Potassium 3.6 Chloride 122 H Carbon Dioxide 20 L Anion Gap 6 L BUN 22.1 H Creatinine 1.2 Est GFR (CKD-EPI)AfAm 47.06 Est GFR (CKD-EPI)NonAf 40.60 Random Glucose 116 H Calcium 8.5 Total Bilirubin 1.0 AST 13 L ALT 7 L Alkaline Phosphatase 95 Total Protein 5.2 L Albumin 1.8 L 04/05/19 15:00 WBC RBC Hgb Hct MCV MCH MCHC RDW Plt Count MPV Absolute Neuts (auto) Neutrophils % Lymphocytes % Monocytes % Eosinophils % Basophils % Nucleated RBC % PT with INR 37.60 H INR 3.15 H Sodium Potassium Chloride Carbon Dioxide Anion Gap BUN Creatinine Est GFR (CKD-EPI)AfAm Est GFR (CKD-EPI)NonAf Random Glucose Calcium Total Bilirubin AST ALT Alkaline Phosphatase Total Protein Albumin Active Medications Generic Name Dose Route Start Last Admin Trade Name Freq PRN Reason Stop Dose Admin Acetaminophen 1,000 mg 11/23/19 06:45 04/06/19 05:52 Ofirmev Injection - IVPB 1,000 mg Q6H ANNA Administration Diphenhydramine HCl 12.5 mg 04/04/19 02:31 04/06/19 01:39 Benadryl Injection - IVPUSH 12.5 mg Q8H PRN Administration FOR ITCHING Piperacillin Sod/Tazobactam 50 mls @ 100 mls/hr 04/03/19 18:00 04/06/19 01:19 Sod 3.375 gm/ Dextrose IVPB 100 mls/hr Q8H-IV ANNA Administration Protocol Potassium Chloride/Dextrose/Sod Cl 10 meq in 1,000 mls @ 83 mls/hr 04/04/19 13 :45 04/05/19 17:25 D5-1/2ns+10 Meq Kcl - IV 83 mls/hr ASDIR ANNA Administration Ketoconazole 1 applic 04/04/19 02:15 04/05/19 11:13 Nizoral 2% Cream - TP 1 applic DAILY ANNA Administration Metoclopramide HCl 10 mg 04/01/19 06:09 04/04/19 03:46 Reglan Injection - IVPUSH 10 mg Q6H PRN Administration NAUSEA AND/OR VOMITING Metoprolol Tartrate 5 mg 04/03/19 07:00 04/06/19 06:01 Lopressor Injection - IVPUSH Not Given Q6H ANNA ASSESSMENT/PLAN: This is an 88 year old woman with a history of SBO, diverticulitis, hemicolectomy, HTN, hyperlipidemia, CAD, TN, atrial fib, chronic diastolic heart failure, CVA, PE who presented to the ED with abdominal pain and decreased appetite. 1. SBO - Resolved - Tolerating clear liquids 2. Severe sepsis secondary to Klebsiella UTI, possible left foot abscess - Continue Zosyn - Follow up wound culture 3. Acute kidney injury on stage 3 CKD - Improved - Continue IV fluid until oral intake improves 4. Hypokalemia - Improved 5. Hypomagnesemia - Improved 6. CAD, history of TN - Restart aspirin, Toprol XL, Pravachol 7. Chronic diastolic heart failure - Lasix held secondary to JAROD - No evidence of fluid overload 8. Atrial fib, permanent - Change IV Lopressor to Toprol XL - Continue to hold Eliquis secondary to coagulopathy 9. HTN - Change IV Lopressor to Toprol XL 10. Hyperlipidemia - Restart Pravachol 11. 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 History of PE after orthopedic surgery Visit type - Emergency Visit Emergency Visit: Yes ED Registration Date: 04/01/19 Care time: The patient presented to the Emergency Department on the above date and was hospitalized for further evaluation of their emergent condition. - New Patient This patient is new to me today: No - Critical Care Critical Care patient: No - Discharge Referral Referred to [facility] No
[2019-04-06] MEDS ORDERED: ACETAMINOPHEN 325 MG TABLET (FP) PO PRN (09:47)
[2019-04-06] MEDS: D5-1/2NS+10 MEQ KCL - 10 MEQ/1,000 ML INFUS.BAG IV SCH ×2 (09:57→19:55)
[2019-04-06] MEDS: KETOCONAZOLE 2% CREAM - 60GM TUBE TP SCH (10:04)
--- NOTE | 2019-04-06 11:26 | PN ---
Progress Note (short form) - Note Progress Note: cc Confusion and slurring of speech HPI 88 year old female history of SBO s/p hemicolectomy, diverticulitis, HTN, HLD, afib (on eliquis), CVA, presented to hospital for abdominal pain and suspected to have SBO. Patient is on eliquis and her inr was in 4s, and her eliquis and aspirin was on hold . She was dysarthric and as per family she was not confused. She could not sleep on april 03 and after getting benadryl today she is sleeping now. Patient has ct head showed old lacunar stroke in left frontal region and no acute bleeding. She is moving all extremity, There is no fever or seizure like activity. NEUROLOGICAL EXAMIANTION alert and confused, and speech is slurred neck is supple afebrile , vss, eomi, puils reactive no face asymmetry moving all ext inr on april 05 is 3.15 Assessment/Plan delirium secondary to intercurrent illness and medication, and hospitalization. Unlikley to be new stroke , eliquis is on hold as INR was High Plan: no need for eeg or mri at this time - suggest to watch her, spoke to family about repeating ct head, and agree to hold for now - if she not improving , consider repeating ct head continue supprotive care Thanking you so much Dino Rodriguez MD
[2019-04-06] MEDS: diphenhydrAMINE HCL 25 MG CAPSULE (FP) PO SCH (21:13)
--- NOTE | 2019-04-06 22:20 | PN ---
Progress Note (short form) - Note Progress Note: 88-year-old female known case of coronary artery disease, remote myocardial infarction, status post PCI, atrial fibrillation, status post cerebrovascular accident, hypertension. Admitted with intestinal obstructionan. Active Medications Acetaminophen (Tylenol -) 650 mg PO Q6H PRN PRN Reason: FEVER Aspirin (Asa -) 81 mg PO DAILY ANNA Atorvastatin Calcium (Lipitor -) 40 mg PO DAILY ANNA Diphenhydramine HCl (Benadryl -) 50 mg PO HS [facility] Last Admin: 04/06/19 21:13 Dose: Not Given Piperacillin Sod/Tazobactam (Sod 3.375 gm/ Dextrose) 50 mls @ 100 mls/hr IVPB Q8H-IV ANNA; Protocol Last Admin: 04/06/19 17:18 Dose: 100 mls/hr Potassium Chloride/Dextrose/Sod Cl (D5-1/2ns+10 Meq Kcl -) 10 meq in 1,000 mls @ 83 mls/hr IV ASDIR [facility] Last Admin: 04/06/19 19:55 Dose: Not Given Ketoconazole (Nizoral 2% Cream -) 1 applic TP DAILY [facility] Last Admin: 04/06/19 10:04 Dose: 1 applic Metoclopramide HCl (Reglan Injection -) 10 mg IVPUSH Q6H PRN PRN Reason: NAUSEA AND/OR VOMITING Last Admin: 04/04/19 03:46 Dose: 10 mg Metoprolol Succinate (Toprol Xl -) 100 mg PO BID [facility] Last Admin: 04/06/19 21:10 Dose: Not Given Patient was asleep but arousable, still remains confused. Last Vital Signs Temp Pulse Resp BP Pulse Ox 97.7 F 108 H 18 95/54 L 97 04/06/19 18:00 04/06/19 18:00 04/06/19 18:00 04/06/19 18:00 04/06/19 09:00 Neck: Supple, no jugular venous distention, carotids were equal. No bruits were heard. Heart: PMI was in the fifth ICS,no heaves or thrills. S1 was variable, S2 was normal, no murmur or gallops wer heard. lungs: Clear on auscultation. Abdomen: Protuberant, obese, nontender, no rebound tendernes, no hepatosplenomegaly was appreciated.bowel sounds were heard. Extremities: No calf tenderness or dependent edema. CBC, BMP 04/05/19 11:50 04/05/19 11:50 Impression: 1. Coronary artery disease, history of remote myocar status post PCI, stable angina pectoris. 2. New onset of confusion and speech difficulties, etiology to be determined. 3. Permanent atrial fibrillation. 4. Recent intestinal obstruction. 5. Anemia. Recommendations: 1. follow-up INR. 2. Continue medications as outlined. Keagan Turner MD.
[2019-04-07] MEDS ORDERED: DEXTROSE 5%-WATER - 50 ML IVPB ONE ×2 (00:56→09:31)
[2019-04-07] MEDS ORDERED: PIPERACILLIN/TAZOBACTAM 3.375 GM VIAL IVPB ONE ×2 (00:56→09:31)
[2019-04-07] MEDS: D5-1/2NS+10 MEQ KCL - 10 MEQ/1,000 ML INFUS.BAG IV SCH (01:13)
[2019-04-07] MEDS: PIPERACILLIN/TAZOB 3.375 GM 3.375 GM in DEXTROSE 5%-WATER - 50 ML IVPB SCH ×2 (01:14→10:48)
--- NOTE | 2019-04-07 09:42 | CONSULT ---
Admitting History and Physical - Primary Care Physician PCP: Parker Wallis - Admission History of Present Illness: 88 year old female history of SBO s/p hemicolectomy, diverticulitis, HTN, HLD, afib (on eliquis), CVA, admitted for abdominal pain and suspected to have SBO. Pt recovered fully from her stroke. Over the summer she had PNA, with change in her speech as well, with word substitutions since that time. MRI was deferred by family. Her speech was precise and she swallowed well. Now with inability to sleep for a few days, confusion, imprecise speech, difficulty expressing herself, dysphagia. Selected Entries 04/05/19 04/05/19 04/05/19 06:00 10:00 15:40 Temperature 97.9 F 99.7 F H 98.4 F 04/05/19 04/06/19 04/06/19 20:00 05:43 10:00 Temperature 98.5 F 98.1 F 98 F 04/06/19 04/06/19 04/06/19 15:00 18:00 22:00 Temperature 98.6 F 97.7 F 97.8 F 04/07/19 06:00 Temperature 98.7 F Laboratory Tests 04/05/19 04/07/19 11:50 09:05 WBC 9.9 Pending Seen by Neurology:Assessment/Plan delirium secondary to intercurrent illness and medication, and hospitalization. Unlikley to be new stroke , eliquis is on hold as INR was High Plan: no need for eeg or mri at this time - suggest to watch her, spoke to family about repeating ct head, and agree to hold for now - if she not improving , consider repeating ct head continue supprotive care Case reviewed with PNP and Neurology. . - Past Medical History Cardiovascular: Yes: CHF, HTN, Hyperlipdemia Renal/: Yes: Other (mitch in the past) - Advance Directives Advance Directives: Yes: Health Care Proxy - Smoking History Smoking history: Never smoked Have you smoked in the past 12 months: No - Alcohol/Substance Use Hx Alcohol Use: No History - Admission Reason For Visit: SMALL BOWEL OBSTRUCTION - Diagnostics X-ray: Report Reviewed (cxr 04/01) CT Scan: Report Reviewed ( ct head showed old lacunar stroke in left frontal region and no acute bleeding) - General Mental Status: Awake and Alert, Able to Follow Commands, Intermittently Confused (frustrated), Lethargic (sleepy but arousable) Attention: Mild Impairment, Moderate Impairment Ability to Follow Directions: Fair ([place]) Head/Neck Control: Fair - Hearing Hearing: Impaired, Left Ear, Right Ear Hearing Aide: Yes (H aids-improves cognition) With Patient: No Speech Evaluation - Communication Primary Language: MACANESE Oral Expression Ability: Yes: Moderate Impairment, Severe Impairment - Speech Production Able to Make Needs Known: Yes: Moderately Impaired, Severely Impaired Intelligibility: Yes: Moderately Impaired, Severely Impaired - Speech Characteristics Voice Loudness: Normal Voice Pitch: Yes: Normal Voice Phonatory-based Quality: Yes: Normal Speech Pattern: Impaired Speech Clarity: < 25% Nasal Resonance: Normal Articulation: Yes: Imprecise Rate of Speech: Too Slow - Language/Auditory Comprehension Follows: Yes: 1 Stage Simple Commands Observation: Comprehends Conversational Speech: Yes (simple, if loud), Benefits from Slow Speech: Yes, Benefits from Repetiton: Yes, Benefits from Increased Volume of Speech: Yes - Language/Verbal Expression Able to Respond to Simple Queries: Yes: Moderately Impaired, Severely Impaired Able to Communicate Wants and Needs: Yes: Moderately Impaired, Severely Impaired - Swallow Evaluation/Bedside Assessment Current Nutritional Intake: Grace Textured Liquids Facial Symmetry at Rest: Symmetrical Facial Symmetry on Retraction: Symmetrical Against Resistance Opening: Weak Against Resistance Closing: Weak Lingual Movement: Symmetric Lingual Speed of Movement: Reduced Lingual Movement Strgth Against Opposition: Reduced Laryngeal Elevation: Impaired Laryngeal Movement: Reduced Excursion, Labored,delay initiation Rate of Intake: Slow/Holding Bolus Size: Small Labial Seal: Impaired Bilaterally (mouth open posture, difficulty removing food from spoon) Oral Prep Time: Increased A-P Transit: Impaired Timing of Swallow: Delayed Coughing/Throat Clear: Yes (thin) Recommendations - Speech Evaluation, Impression/Plan Impression: confusion, imprecise speech,articulation slow,imprecise, difficulty expressing herself, dysphagia. Pt is frustrated, aware she is having difficulty , stating "Listen to me" - Disposition Discharge to: To be Determined - Dysphagia Impressions/Plan Swallowing Skills: Impaired Dysphagia Impressions: Moderate Impairment, Suspect Aspiration (on thin. Better with nectar on tsp but risk persists.) *Silent aspiration: cannot be R/O at bedside Dysphagia Treatment Plan: Small Bites, Chin Tuck/Down, Clear Pocket Food, Trial Feedings, Safe Rate, Elevate HOB during feed Recommendations: Modified Barium Swallow (wednesday if medically stable), Other ( Consider repeat CT, CXR NPO if cough congestion.) - Recommendations Diet Consistency: Other (trial full fluids/liquids to nectar.) Medication Administration: Crushed with applesauce Liquids: Grace Thick
--- NOTE | 2019-04-07 10:01 | PN ---
Progress Note (short form) - Note Progress Note: Pt seen, family at bedside states pt continues to have confusion/difficulty speaking. Has not been oob. Had a large BM overnight, smaller one this morning. Passing flatus. Eating small amounts of clears, awaiting speech and swallow evaluation. Vital Signs Temp 98.7 F 04/07/19 06:00 Pulse 103 H 04/07/19 06:00 Resp 20 04/07/19 06:00 BP 103/49 L 04/07/19 06:00 Pulse Ox 100 04/06/19 21:00 Intake & Output 04/06/19 04/06/19 04/07/19 11:59 23:59 11:59 Intake Total 831 1753 681 Balance 831 1753 681 Intake: IV 581 1328 581 D5-1/2NS+10 MEQ KCL - 10 581 1328 581 meq In 1,000 ml @ 83 mls/ hr IV ASDIR ANNA Rx#: [id number] IVPB 250 100 100 Oral 325 Other: Voiding Method Bedside Commode Diaper # Unmeasured Voids Void 2 1 Bowel Movement Yes Yes Yes: large BM-diarrhea # Bowel Movements 2 1 2 CBC, BMP 04/05/19 11:50 04/05/19 11:50 Gen: Asleep, family at bedside Abdo: soft, nondistended, + bowel sounds, no ttp A/P: 88 y/o F w/ PMHx previous SBO s/p hemicolectomy, diverticulitis, HTN, HLD, afib (on eliquis), CVA, admitted 03/31 with abdo pain and decreased appeitite, found to have recurrent SBO. Tolerating minimal clears, having issues due to swallowing, awaiting evaluation Continues to have BMS and pass flatus -F/U speech and swallow -Advancement of diet pending speech and swallow eval -Please reconsult surgery prn d/w attending Dr Pérez
[2019-04-07 10:11] LABS: BASO % 0.6 % (0-2.0); HEMATOCRIT 36.1 % (32.4-45.2); HEMOGLOBIN 11.3 GM/dL (10.7-15.3); MCH 30.9 pg (25.7-33.7); MCHC 31.4 g/dl (32.0-36.0); MEAN CELL VOLUME 98.7 fl (80-96); MEAN PLT VOLUME 7.7 fl (7.5-11.1); MONO % 2.3 % (3.8-10.2); NEUT % 80.1 % (42.8-82.8); PLATELET COUNT 237 K/MM3 (134-434); RBC 3.66 M/mm3 (3.60-5.2); RDW 18.3 % (11.6-15.6); WHITE BLOOD COUNT 11.5 K/mm3 (4.0-10.0)
--- NOTE | 2019-04-07 10:21 | PN ---
Physical Exam: SUBJECTIVE: Patient seen and examined at the bedside. family present and all questions answered. long discussion with them and Dr. Turner regarding vitamin K and need for vitamin K since her inr is elevated and continues to rise. OBJECTIVE: discussed with hematology, Dr. Camejo, discussed case of elevated inr and recommended vitamin k 1 mg sq x 1. head ct 04/07/2019 negative. Patient is an 88 year old female with a significant past medical history of previous SBO s/p hemicolectomy, diverticulitis, HTN, HLD, afib (on eliquis), CVA, presents to the ED with abdominal pain. NGT tube placed on admission with noted drainage, now removed and started on clears. Patient eliquis has been held secondary to npo status and inr was being monitored for possible start of heparin drip. inr levels noted to be rising and now peaked at 4.9. spoke to hematology (Dr. Camejo) who advised giving vitamin k 1mg x 1 sq now. elevated inr in the setting of acute infection (uti), on antibiotic therpy ( zosyn). her lfts are also elevated today. abdominal xray repeated today as patient c/o of increased abdominal pain, which shows SBO. patient currently tolerating small sips of clears. K. 2.7. repleated with 3 k riders with a repeat in labs this afternoon. Vital Signs Period Temp Pulse Resp BP Sys/Kendall Pulse Ox Last 24 Hr 97.7 F-98.7 F 101-108 18-20 94-103/49-61 100 GENERAL: confused, agitated at times, slurring of words. head ct negative. HEAD: Normal with no signs of trauma EYES: PERRL, extraocular movements intact, sclera anicteric, conjunctiva clear. No ptosis. ENT: Ears normal, nares patent, oropharynx clear without exudates NECK: Trachea midline, full range of motion, supple. LUNGS: Breath sounds equal, clear to auscultation anteriorly HEART: Regular rate and rhythm ABDOMEN: obese abdomen with tenderness to palpation, + bowel sounds. EXTREMITIES: no edema. NEUROLOGICAL: garbled speech, gait not observed. PSYCH: Normal mood, normal affect. SKIN: Warm, dry, normal turgor, no rashes or lesions noted Active Medications Generic Name Dose Route Start Last Admin Trade Name Freq PRN Reason Stop Dose Admin Acetaminophen 650 mg 04/06/19 09:47 Tylenol - PO Q6H PRN FEVER Aspirin 81 mg 04/07/19 10:00 Asa - PO DAILY ANNA Atorvastatin Calcium 40 mg 04/07/19 10:00 Lipitor - PO DAILY ANNA Diphenhydramine HCl 50 mg 04/06/19 22:00 04/06/19 21:13 Benadryl - PO Not Given HS ANNA Piperacillin Sod/Tazobactam 50 mls @ 100 mls/hr 04/03/19 18:00 04/07/19 01:14 Sod 3.375 gm/ Dextrose IVPB 100 mls/hr Q8H-IV ANNA Administration Protocol Potassium Chloride/Dextrose/Sod Cl 10 meq in 1,000 mls @ 83 mls/hr 04/04/19 13 :45 04/07/19 01:13 D5-1/2ns+10 Meq Kcl - IV 83 mls/hr ASDIR ANNA Administration Ketoconazole 1 applic 04/04/19 02:15 04/06/19 10:04 Nizoral 2% Cream - TP 1 applic DAILY ANNA Administration Metoclopramide HCl 10 mg 04/01/19 06:09 04/04/19 03:46 Reglan Injection - IVPUSH 10 mg Q6H PRN Administration NAUSEA AND/OR VOMITING Metoprolol Succinate 100 mg 04/06/19 22:00 04/06/19 21:10 Toprol Xl - PO Not Given BID ANNA ASSESSMENT/PLAN: Problem List - Problems (1) Toxic metabolic encephalopathy Assessment/Plan: head ct repeated and negative for stroke. acute metabolic enceph in the settign of elevated inr, acute UTI and poor PO intake. neuro following. no eeg/mri recommended at this time. Code(s): G92 - TOXIC ENCEPHALOPATHY (2) SBO (small bowel obstruction) Assessment/Plan: abdomen more tender day on light palpation of abdomen. xray shows sbo. surgery following and aware, and recommended to continue current management. patient without any vomiting. Code(s): K56.609 - UNSP INTESTNL OBST, UNSP TO PARTIAL VERSUS COMPLETE OBST (3) JAROD (acute kidney injury) Assessment/Plan: monitor with daily labs, improving Code(s): N17.9 - ACUTE KIDNEY FAILURE, UNSPECIFIED (4) Bowel obstruction Assessment/Plan: surgery following had large bm this morning Code(s): K56.609 - UNSP INTESTNL OBST, UNSP TO PARTIAL VERSUS COMPLETE OBST Qualifiers: Intestinal obstruction type: unspecified Intestinal obstruction extent: partial Qualified Code(s): K56.600 - Partial intestinal obstruction, unspecified as to cause (5) CVA (cerebral vascular accident) Assessment/Plan: history of cva, has residual expressive aphagia. head ct repeated again today and is negative for acute findings. Code(s): I63.9 - CEREBRAL INFARCTION, UNSPECIFIED (6) Severe sepsis Assessment/Plan: secondary to UTI, lactic acidosis resolved urine cultures with kleb and on zosyn, zosyn stopped for elevated inr. Code(s): A41.9 - SEPSIS, UNSPECIFIED ORGANISM; R65.20 - SEVERE SEPSIS WITHOUT SEPTIC SHOCK (7) CAD (coronary artery disease) Code(s): I25.10 - ATHSCL HEART DISEASE OF [place] CORONARY ARTERY W/O ANG PCTRS (8) Chronic diastolic (congestive) heart failure Code(s): I50.32 - CHRONIC DIASTOLIC (CONGESTIVE) HEART FAILURE (9) Hypertension Assessment/Plan: monitor q 4 Code(s): I10 - ESSENTIAL (PRIMARY) HYPERTENSION (10) Hx pulmonary embolism Assessment/Plan: on eliquis, but will hold due to elevated inr Continue to hold Eliquis secondary to coagulopathy Code(s): Z86.711 - PERSONAL HISTORY OF PULMONARY EMBOLISM (11) Prophylactic measure Assessment/Plan: fen holding eliquis Code(s): Z29.9 - ENCOUNTER FOR PROPHYLACTIC MEASURES, UNSPECIFIED (12) Atrial fibrillation Assessment/Plan: on lopressor and eliquis continue to hold Eliquis secondary to coagulopathy Code(s): I48.91 - UNSPECIFIED ATRIAL FIBRILLATION Visit type - Emergency Visit Emergency Visit: Yes ED Registration Date: 04/01/19 Care time: The patient presented to the Emergency Department on the above date and was hospitalized for further evaluation of their emergent condition. - New Patient This patient is new to me today: No - Critical Care Critical Care patient: No - Discharge Referral Referred to [facility] No
--- NOTE | 2019-04-07 10:25 | PN ---
Progress Note (short form) - Note Progress Note: 88 year old female history of SBO s/p hemicolectomy, diverticulitis, HTN, HLD , afib (on eliquis), CVA, presented to hospital for abdominal pain and suspected to have SBO. Patient is on eliquis and her inr was in 4s, and her eliquis and aspirin was on hold . She was dysarthric and as per family she was not confused. She could not sleep on april 03 and after getting benadryl today she is sleeping now. Patient has ct head showed old lacunar stroke in left frontal region and no acute bleeding. She is moving all extremity, There is no fever or seizure like activity. Paitent has been awake and alert and follow command NEUROLOGICAL EXAMIANTION alert and confused, and speech is slurred and at times she has trouble getting words out neck is supple afebrile , vss, eomi, puils reactive no face asymmetry moving all ext INR ON APRIL 07 is pending Assessment/Plan delirium secondary to intercurrent illness and medication, and hospitalization. Unlikley to be new stroke , eliquis is on hold as INR was High I would reeat a ct head to confirm if there is no new stroke. Most likely to be metabolic encephalopathy Plan: no need for eeg or mri at this time - would repeat ct head continue supprotive care Thanking you so much Dino Rodriguez MD
[2019-04-07 10:37] LABS: ALBUMIN 1.6 g/dl (3.4-5.0); BILIRUBIN,TOTAL 1.1 mg/dL (0.2-1); BLOOD UREA NITROGEN 19.8 mg/dL (7-18); CALCIUM 8.4 mg/dL (8.5-10.1); CREATININE 1.3 mg/dL (0.55-1.3); MAGNESIUM 1.4 mg/dL (1.8-2.4); TOT PROT 4.8 g/dl (6.4-8.2)
[2019-04-07 10:38] LABS: POTASSIUM 2.7 mmol/L (3.5-5.1)
[2019-04-07] MEDS ORDERED: SODIUM CHLORIDE 0.45% 1,000 ML IV SCH (10:45)
[2019-04-07] MEDS: ATORVASTATIN CA 10 MG TABLET (FP) PO SCH (10:47)
[2019-04-07] MEDS: ASPIRIN 81 MG CHEWABLE TABLETS PO SCH (10:47)
[2019-04-07 11:05] LABS: PROTHROMBIN TIME (PATIENT) 59.7 SEC (9.7-13.0)
[2019-04-07 11:06] LABS: INR 4.98 (0.83-1.09)
[2019-04-07] MEDS: KCL 10 MEQ IVPB 10 MEQ/100 ML INFUS.BAG IVPB SCH ×3 (12:03→14:20)
[2019-04-07] MEDS ORDERED: DEXTROSE 5%-WATER - 1,000 ML with POTASSIUM CHLORIDE 40 MEQ IVPB SCH (12:15)
[2019-04-07] MEDS ORDERED: POTASSIUM CHLORIDE 40 MEQ in DEXTROSE 5%-WATER - 1,000 ML IVPB SCH (12:15)
--- NOTE | 2019-04-07 13:08 | CONSULT ---
Consult - text type - Consultation Consultation Note: Renal consult for electroyte disturbances This is a 88 year old woman with history of recurrent small bowel obstructions, hypertension, CAD, CVA, PE, CHF who presented from home with abdominal pain and N/V and found to have partial SBO now with hypernatremia, hypokalemia and hypomagnesemia. Pt seen and examined at the bedside, family at the bedside as well. Pt is awake but not talking. Nurse reports 3 episodes of diarrhea over the pat 36 hours. Has been on IVF. Surgery following. PMhx: as above Allergies: NKDA Family Hx: NC Social Hx: unknown ROS: unable to obtain because of clinical status. Home Medications Medication Instructions Recorded Aspirin 81 mg PO DAILY 09/06/17 Furosemide [Lasix -] 40 mg PO BID 09/06/17 Metoprolol Succinate [Toprol XL -] 100 mg PO BID 09/06/17 Potassium Chloride [K-Dur -] 20 meq PO DAILY 09/06/17 Pravastatin Sodium [Pravachol] 40 mg PO DAILY 09/06/17 Apixaban [Eliquis] 5 mg PO BID 09/07/17 Ergocalciferol [Vitamin D2] 50,000 unit PO Q7D@1000 10/27/18 Cyanocobalamin [Vitamin B12 -] 1,000 mcg PO DAILY #30 tablet 11/11/18 Docusate Sodium [Colace] 100 mg PO BID #60 capsule 11/11/18 Ferrous Sulfate [Feosol] 325 mg PO BID #60 ud 11/11/18 Albuterol 2.5/Ipratropium 0.5 1 neb NEB QID PRN 04/01/19 [Duoneb -] Allopurinol [Zyloprim -] 100 mg PO WEEKLY 04/01/19 Colchicine 0.6 mg PO Q2D 04/01/19 Nystatin [Nyamyc] 100,000 unit TP BID 04/01/19 Sulfacetamide Sodium 10% [Bleph-10 1 drop OU QID 04/01/19 Ophthalmic Solution -] Vital Signs Temperature 98.7 F 04/07/19 06:00 Pulse Rate 98 H 04/07/19 10:00 Respiratory Rate 20 04/07/19 10:00 Blood Pressure 97/58 L 04/07/19 10:00 O2 Sat by Pulse Oximetry (%) 98 04/07/19 10:00 Intake & Output 04/04/19 04/05/19 04/06/19 04/07/19 23:59 23:59 23:59 23:59 Intake Total 332 1768 2584 681 Output Total 200 Balance 132 1768 2584 681 Weight 83.915 kg NAD awake and alert neck supple, no JVD RRR, no M/R CTA, no rales or wheeze + distension and tenderness in lower abdomen no LE edema, clubbing or cyanosis CBC, BMP 04/07/19 09:05 04/07/19 06:00 Current Medications Acetaminophen (Tylenol -) 650 mg PO Q6H PRN PRN Reason: FEVER Aspirin (Asa -) 81 mg PO DAILY [facility] Last Admin: 04/07/19 10:47 Dose: Not Given Atorvastatin Calcium (Lipitor -) 40 mg PO DAILY [facility] Last Admin: 04/07/19 10:47 Dose: Not Given Diphenhydramine HCl (Benadryl -) 50 mg PO HS [facility] Last Admin: 04/06/19 21:13 Dose: Not Given Piperacillin Sod/Tazobactam (Sod 3.375 gm/ Dextrose) 50 mls @ 100 mls/hr IVPB Q8H-IV ANNA; Protocol Last Admin: 04/07/19 10:48 Dose: 100 mls/hr Potassium Chloride (Potassium Chloride 10 Meq Premix Ivpb -) 10 meq in 100 mls @ 100 mls/hr IVPB Q60M [facility] Stop: 04/07/19 13:44 Last Admin: 04/07/19 12:03 Dose: 100 mls/hr Potassium Chloride 40 meq/ (Dextrose) 1,020 mls @ 42 mls/hr IVPB .[id number] [facility] Ketoconazole (Nizoral 2% Cream -) 1 applic TP DAILY [facility] Last Admin: 04/06/19 10:04 Dose: 1 applic Magnesium Sulfate (Magnesium Sulfate) 2 gm IVPB Q1H [facility] Stop: 04/07/19 13:16 Metoclopramide HCl (Reglan Injection -) 10 mg IVPUSH Q6H PRN PRN Reason: NAUSEA AND/OR VOMITING Last Admin: 04/04/19 03:46 Dose: 10 mg Metoprolol Succinate (Toprol Xl -) 100 mg PO BID [facility] Last Admin: 04/07/19 10:48 Dose: Not Given 88 year old woman with history of recurrent small bowel obstructions, hypertension, CAD, CVA, PE, CHF who presented from home with abdominal pain and N/V and found to have partial SBO now with hypernatremia, hypokalemia and hypomagnesemia. 1. Hypokalemia likely secondary to GI losses 2. Hypomagnesmeia 3. Hypernatremia from isotonic saline infusion and increased water losses 4. Non-anion gap metabolic acidosis 5. Partial small bowel obstruction 6. Confusion/AMS WIll supplament potassium, magnesium via IV. Change IVF to D5W with KCl Repeat BMP, Mg, Phos this evening Trend bicarb off saline Surgical follow up for bowel obstruction CT head done this am for AMS, follow up results Case discussed with primary team Thank you Yoel Torres DO
[2019-04-07] MEDS ORDERED: PHYTONADIONE 10 MG/1 ML AMP SQ ONE (13:45)
[2019-04-07 14:03] LABS: PHOSPHOROUS 2.6 mg/dL (2.5-4.9)
--- NOTE | 2019-04-07 14:32 | PN ---
Progress Note (short form) - Note Progress Note: asked to f/u more lethargic head ct no bleed elevated INR no ngt +BMs Vital Signs Period Temp Pulse Resp BP Sys/Kendall Pulse Ox Last 24 Hr 97.7 F-98.7 F 98-108 18-20 94-103/49-61 98-100 cor-rrr lungs decreased bs at bases abd soft, decreased bs on exam =mild distention ext no edema CBC, BMP 04/07/19 09:05 04/07/19 06:00 Microbiology 04/05/19 21:15 Foot - Left Gram Stain - Final 04/05/19 21:15 Foot - Left Wound Culture - Preliminary NO GROWTH OBTAINED AFTER 24 HOURS INCUBATION, REINCUBATED. 04/01/19 14:17 Urine - Urine Clean Catch Urine Culture - Final Klebsiella Pneumoniae imp/reccd 88 yo female admitted from home with SOB has completed 7 days of antibiotics- can d/c and observe SBO-per surgery, xray abdomen repeated UTI-s/p antibiotics dementia afib on eliquis observe off antibiotics d/w family at bedside
[2019-04-07] MEDS ORDERED: MAGNESIUM SULF 50% (8.12 MEQ/2 ML-1 GM VIAL) IVPB ONE (15:00)
[2019-04-07] MEDS: MAGNESIUM SULF 50% (8.12 MEQ/2 ML-1 GM VIAL) IVPB SCH ×2 (15:18→16:11)
[2019-04-07] MEDS: KETOCONAZOLE 2% CREAM - 60GM TUBE TP SCH (16:06)
[2019-04-07 19:56] LABS: BLOOD UREA NITROGEN 17.7 mg/dL (7-18); CALCIUM 8.3 mg/dL (8.5-10.1); CREATININE 1.3 mg/dL (0.55-1.3); MAGNESIUM 2.1 mg/dL (1.8-2.4); PHOSPHOROUS 2.3 mg/dL (2.5-4.9); POTASSIUM 3.1 mmol/L (3.5-5.1)
[2019-04-07] MEDS: diphenhydrAMINE HCL 25 MG CAPSULE (FP) PO SCH (21:46)
[2019-04-08] MEDS ORDERED: SODIUM CHLORIDE 500 ML IV STA (07:53)
[2019-04-08 07:58] LABS: BASO % 0.7 % (0-2.0); EOS % 3.6 % (0-4.5); HEMATOCRIT 37.6 % (32.4-45.2); LYMPH % 18.5 % (8-40); MCH 31.1 pg (25.7-33.7); MCHC 31.8 g/dl (32.0-36.0); MEAN CELL VOLUME 97.8 fl (80-96); MEAN PLT VOLUME 7.9 fl (7.5-11.1); MONO % 3.6 % (3.8-10.2); NEUT % 73.6 % (42.8-82.8); PLATELET COUNT 218 K/MM3 (134-434); RBC 3.85 M/mm3 (3.60-5.2); RDW 18.7 % (11.6-15.6); WHITE BLOOD COUNT 10.2 K/mm3 (4.0-10.0)
[2019-04-08 08:07] LABS: INR 2.65 (0.83-1.09); PROTHROMBIN TIME (PATIENT) 31.6 SEC (9.7-13.0)
[2019-04-08 08:13] LABS: ALBUMIN 1.7 g/dl (3.4-5.0); BLOOD UREA NITROGEN 17.1 mg/dL (7-18); CALCIUM 8.5 mg/dL (8.5-10.1); CREATININE 1.3 mg/dL (0.55-1.3); MAGNESIUM 2.1 mg/dL (1.8-2.4); POTASSIUM 3.2 mmol/L (3.5-5.1); TOT PROT 5.1 g/dl (6.4-8.2)
[2019-04-08] MEDS ORDERED: POTASSIUM PHOSPHATE 15 MM in DEXTROSE 5%-WATER - 250 ML IVPB ONE (08:54)
--- NOTE | 2019-04-08 10:04 | PN ---
Physical Exam: SUBJECTIVE: Patient seen and examined at the bedside. in no acute distress. more awake and alert. denies pain. OBJECTIVE: Patient is an 88 year old female with a significant past medical history of previous SBO s/p hemicolectomy, diverticulitis, HTN, HLD, afib (on eliquis), CVA, presents to the ED with abdominal pain. NGT tube placed on admission for SBO, now removed and started on liquid diet. Patient's eliquis has been held secondary to npo status and inr was being monitored for possible start of heparin drip. inr levels noted to be rising and now peaked at 4.9. Vital Signs Period Temp Pulse Resp BP Sys/Kendall Pulse Ox Last 24 Hr 97.1 F-98.6 F 105-123 20-20 83-92/40-53 100 GENERAL: confused, agitated at times, slurring of words. head ct negative x 2 HEAD: Normal with no signs of trauma EYES: PERRL, extraocular movements intact, sclera anicteric, conjunctiva clear. No ptosis. ENT: Ears normal, nares patent, oropharynx clear without exudates NECK: Trachea midline, full range of motion, supple. LUNGS: Breath sounds equal, clear to auscultation anteriorly HEART: Regular rate and rhythm ABDOMEN: obese abdomen with tenderness to palpation, + bowel sounds. EXTREMITIES: right arm edema NEUROLOGICAL: garbled speech, gait not observed. PSYCH: Normal mood, normal affect. SKIN: Warm, dry, normal turgor, no rashes or lesions noted Laboratory Results - last 24 hr 04/07/19 04/07/19 04/07/19 06:00 09:05 09:05 WBC 11.5 H RBC 3.66 Hgb 11.3 Hct 36.1 MCV 98.7 H MCH 30.9 MCHC 31.4 L RDW 18.3 H Plt Count 237 D MPV 7.7 D Absolute Neuts (auto) 9.2 H Neutrophils % 80.1 Lymphocytes % 14.0 Monocytes % 2.3 L Eosinophils % 3.0 Basophils % 0.6 Nucleated RBC % 0 PT with INR 59.70 H INR 4.98 H* Sodium 150 H Potassium 2.7 L* Chloride 122 H Carbon Dioxide 19 L Anion Gap 9 BUN 19.8 H Creatinine 1.3 Est GFR (CKD-EPI)AfAm 42.72 Est GFR (CKD-EPI)NonAf 36.86 Random Glucose 114 H Calcium 8.4 L Phosphorus 2.6 Magnesium 1.4 L Total Bilirubin 1.1 H AST 254 H ALT 65 H Alkaline Phosphatase 94 Total Protein 4.8 L Albumin 1.6 L 04/07/19 04/08/19 04/08/19 18:45 07:00 07:00 WBC 10.2 H RBC 3.85 Hgb 12.0 Hct 37.6 MCV 97.8 H MCH 31.1 MCHC 31.8 L RDW 18.7 H Plt Count 218 MPV 7.9 Absolute Neuts (auto) 7.5 Neutrophils % 73.6 Lymphocytes % 18.5 D Monocytes % 3.6 L Eosinophils % 3.6 Basophils % 0.7 Nucleated RBC % 0 PT with INR INR Sodium 148 H 149 H Potassium 3.1 L 3.2 L Chloride 121 H 122 H Carbon Dioxide 18 L 19 L Anion Gap 9 8 BUN 17.7 17.1 Creatinine 1.3 1.3 Est GFR (CKD-EPI)AfAm 42.72 42.72 Est GFR (CKD-EPI)NonAf 36.86 36.86 Random Glucose 101 90 Calcium 8.3 L 8.5 Phosphorus 2.3 L Magnesium 2.1 2.1 Total Bilirubin 1.0 AST 374 H ALT 113 H Alkaline Phosphatase 115 Total Protein 5.1 L Albumin 1.7 L 04/08/19 07:00 WBC RBC Hgb Hct MCV MCH MCHC RDW Plt Count MPV Absolute Neuts (auto) Neutrophils % Lymphocytes % Monocytes % Eosinophils % Basophils % Nucleated RBC % PT with INR 31.60 H INR 2.65 H Sodium Potassium Chloride Carbon Dioxide Anion Gap BUN Creatinine Est GFR (CKD-EPI)AfAm Est GFR (CKD-EPI)NonAf Random Glucose Calcium Phosphorus Magnesium Total Bilirubin AST ALT Alkaline Phosphatase Total Protein Albumin Active Medications Generic Name Dose Route Start Last Admin Trade Name Freq PRN Reason Stop Dose Admin Acetaminophen 650 mg 04/06/19 09:47 Tylenol - PO Q6H PRN FEVER Aspirin 81 mg 04/07/19 10:00 04/07/19 10:47 Asa - PO Not Given DAILY [facility] Atorvastatin Calcium 40 mg 04/07/19 10:00 04/07/19 10:47 Lipitor - PO Not Given DAILY ANNA Diphenhydramine HCl 50 mg 04/06/19 22:00 04/07/19 21:46 Benadryl - PO 50 mg HS ANNA Administration Potassium Phosphate 15 mm/ 255 mls @ 62.5 mls/hr 04/08/19 08:54 Dextrose IVPB 04/08/19 12:58 ONCE ONE Potassium Chloride 40 meq/ 1,020 mls @ 75 mls/hr 04/08/19 08:54 Dextrose IVPB Q13H ANNA Ketoconazole 1 applic 04/04/19 02:15 04/07/19 16:06 Nizoral 2% Cream - TP Not Given DAILY ANNA Metoclopramide HCl 10 mg 04/01/19 06:09 04/04/19 03:46 Reglan Injection - IVPUSH 10 mg Q6H PRN Administration NAUSEA AND/OR VOMITING Metoprolol Succinate 100 mg 04/06/19 22:00 04/07/19 21:45 Toprol Xl - PO Not Given BID ANNA ASSESSMENT/PLAN: Problem List - Problems (1) SBO (small bowel obstruction) Assessment/Plan: s/p ngt placement and now on full liquids surgery following Code(s): K56.609 - UNSP INTESTNL OBST, UNSP TO PARTIAL VERSUS COMPLETE OBST (2) Bowel obstruction Assessment/Plan: surgery following no nausea/vomiting tolerating clears, now advanced to full liquid Code(s): K56.609 - UNSP INTESTNL OBST, UNSP TO PARTIAL VERSUS COMPLETE OBST Qualifiers: Intestinal obstruction type: unspecified Intestinal obstruction extent: partial Qualified Code(s): K56.600 - Partial intestinal obstruction, unspecified as to cause (3) Toxic metabolic encephalopathy Assessment/Plan: head ct repeated and negative for stroke. acute metabolic enceph in the setting of elevated inr, acute UTI and poor PO intake. neuro following. no eeg/mri recommended at this time. Code(s): G92 - TOXIC ENCEPHALOPATHY (4) JAROD (acute kidney injury) Assessment/Plan: monitor with daily labs, improving Code(s): N17.9 - ACUTE KIDNEY FAILURE, UNSPECIFIED (5) CVA (cerebral vascular accident) Assessment/Plan: history of cva, has residual expressive aphagia but per family, speech currently more slurred than baseline. head ct negative for acute findings. dr. marin (neuro) following and notes reviewed and appreciated. Code(s): I63.9 - CEREBRAL INFARCTION, UNSPECIFIED (6) Severe sepsis Assessment/Plan: secondary to UTI, lactic acidosis resolved urine cultures with kleb and patient completed 7 days of IV antibiotics. per ID,monitor of antibiotics Code(s): A41.9 - SEPSIS, UNSPECIFIED ORGANISM; R65.20 - SEVERE SEPSIS WITHOUT SEPTIC SHOCK (7) CAD (coronary artery disease) Code(s): I25.10 - ATHSCL HEART DISEASE OF [place] CORONARY ARTERY W/O ANG PCTRS (8) Chronic diastolic (congestive) heart failure Code(s): I50.32 - CHRONIC DIASTOLIC (CONGESTIVE) HEART FAILURE (9) Hypertension Assessment/Plan: monitor q 4 Code(s): I10 - ESSENTIAL (PRIMARY) HYPERTENSION (10) Hx pulmonary embolism Assessment/Plan: on eliquis, continue to hold Eliquis secondary to coagulopathy Code(s): Z86.711 - PERSONAL HISTORY OF PULMONARY EMBOLISM (11) Atrial fibrillation Assessment/Plan: on lopressor and eliquis continue to hold Eliquis secondary to coagulopathy Code(s): I48.91 - UNSPECIFIED ATRIAL FIBRILLATION (12) Elevated INR Assessment/Plan: inr peaked at 4.9 on 04/07/19, discussed with radio artist who recommended vitamin k 1mg sq one dose. inr now 2.96 Code(s): R79.1 - ABNORMAL COAGULATION PROFILE (13) Abnormal AST and ALT Assessment/Plan: elevated today. liver ultrasound 04/01/2019 was done but reading was limited. showed diffuse fatty infiltration of the liver and marked dilatation of the right renal pelvis. Code(s): R74.8 - ABNORMAL LEVELS OF OTHER SERUM ENZYMES (14) Prophylactic measure Assessment/Plan: fen holding eliquis Code(s): Z29.9 - ENCOUNTER FOR PROPHYLACTIC MEASURES, UNSPECIFIED Visit type - Emergency Visit Emergency Visit: Yes ED Registration Date: 04/01/19 Care time: The patient presented to the Emergency Department on the above date and was hospitalized for further evaluation of their emergent condition. - New Patient This patient is new to me today: No - Critical Care Critical Care patient: No - Discharge Referral Referred to [facility] No
--- NOTE | 2019-04-08 10:30 | PN ---
Progress Note (short form) - Note Progress Note: Renal follow up for electrolyte abnormalities Seen and examined at the bedside family at the bedside pt sleeping no overnight events taking in liquid diet on IVF Vital Signs Temperature 98.6 F 04/08/19 05:53 Pulse Rate 105 H 04/08/19 05:53 Respiratory Rate 20 04/08/19 05:53 Blood Pressure 85/40 L 04/08/19 05:53 O2 Sat by Pulse Oximetry (%) 100 04/07/19 21:00 Intake & Output 04/05/19 04/06/19 04/07/19 04/08/19 23:59 23:59 23:59 23:59 Intake Total 1768 2584 959 336 Balance 1768 2584 959 336 Weight 83.915 kg NAD RRR, no M/R CTA, no rales or wheeze + distension, less tenderness + edema right arm CBC, BMP 04/08/19 07:00 04/08/19 07:00 Current Medications Acetaminophen (Tylenol -) 650 mg PO Q6H PRN PRN Reason: FEVER Aspirin (Asa -) 81 mg PO DAILY [facility] Last Admin: 04/07/19 10:47 Dose: Not Given Atorvastatin Calcium (Lipitor -) 40 mg PO DAILY [facility] Last Admin: 04/07/19 10:47 Dose: Not Given Diphenhydramine HCl (Benadryl -) 50 mg PO HS [facility] Last Admin: 04/07/19 21:46 Dose: 50 mg Potassium Phosphate 15 mm/ (Dextrose) 255 mls @ 62.5 mls/hr IVPB ONCE ONE Stop: 04/08/19 12:58 Potassium Chloride 40 meq/ (Dextrose) 1,020 mls @ 75 mls/hr IVPB Q13H [facility] Ketoconazole (Nizoral 2% Cream -) 1 applic TP DAILY [facility] Last Admin: 04/07/19 16:06 Dose: Not Given Metoclopramide HCl (Reglan Injection -) 10 mg IVPUSH Q6H PRN PRN Reason: NAUSEA AND/OR VOMITING Last Admin: 04/04/19 03:46 Dose: 10 mg Metoprolol Succinate (Toprol Xl -) 100 mg PO BID [facility] Last Admin: 04/07/19 21:45 Dose: Not Given 88 year old woman with history of recurrent small bowel obstructions, hypertension, CAD, CVA, PE, CHF who presented from home with abdominal pain and N/V and found to have partial SBO now with hypernatremia, hypokalemia and hypomagnesemia. 1. Hypokalemia likely secondary to GI losses 2. Hypomagnesmeia 3. Hypernatremia from isotonic saline infusion and increased water losses 4. Non-anion gap metabolic acidosis 5. Partial small bowel obstruction 6. Confusion/AMS Mg is improved K and PHos remain low will give K-phos IV today continue D5W with KCL Trend electrolytes daily Thank you Yoel Torres DO
[2019-04-08] MEDS: POTASSIUM CHLORIDE 40 MEQ in DEXTROSE 5%-WATER - 1,000 ML IVPB SCH ×3 (10:39→21:37)
[2019-04-08] MEDS: ATORVASTATIN CA 10 MG TABLET (FP) PO SCH (10:40)
[2019-04-08] MEDS: KETOCONAZOLE 2% CREAM - 60GM TUBE TP SCH (10:41)
[2019-04-08] MEDS: ASPIRIN 81 MG CHEWABLE TABLETS PO SCH (12:07)
--- NOTE | 2019-04-08 12:12 | PN ---
Progress Note (short form) - Note Progress Note: 88 year old female history of SBO s/p hemicolectomy, diverticulitis, HTN, HLD , afib (on eliquis), CVA, presented to hospital for abdominal pain and suspected to have SBO. Patient is on eliquis and her inr was in 4s, and her eliquis and aspirin was on hold . She was dysarthric and as per family she was not confused. She could not sleep on april 03 and after getting benadryl today she is sleeping now. Patient has ct head showed old lacunar stroke in left frontal region and no acute bleeding. She is moving all extremity, There is no fever or seizure like activity. Paitent has been awake and alert and follow command no new complain she is better in terms of her orientation and still continue to have speech difficulty vitamin k was givne for high inr NEUROLOGICAL EXAMIANTION alert and follow command and speech is slurred and at times she has trouble getting words out neck is supple afebrile , vss, eomi, puils reactive no face asymmetry moving all ext repeat ct head unchanged inr today is 2.65 she was given vitamin k yesterday Assessment/Plan delirium secondary to intercurrent illness and medication, and hospitalization. Unlikley to be new stroke , eliquis is on hold as INR was High ct head is unremarkable, unlikley to be new stroke. Plan: no need for eeg or mri at this time - repeat ct findings were discussed with patient speech therapy continue supprotive care Thanking you so much Dino Rodriguez MD
--- NOTE | 2019-04-08 14:01 | PN ---
Progress Note (short form) - Note Progress Note: 88-year-old female known case of coronary artery disease, remote myocardial infarction, status post PCI, atrial fibrillation, status post cerebrovascular accident, hypertension. NG has been removed and being fed orally by daughter. Elevated is being corrected. Still has cofusion. Active Medications Acetaminophen (Tylenol -) 650 mg PO Q6H PRN PRN Reason: FEVER Aspirin (Asa -) 81 mg PO DAILY ANNA Atorvastatin Calcium (Lipitor -) 40 mg PO DAILY ANNA Diphenhydramine HCl (Benadryl -) 50 mg PO HS [facility] Last Admin: 04/06/19 21:13 Dose: Not Given Piperacillin Sod/Tazobactam (Sod 3.375 gm/ Dextrose) 50 mls @ 100 mls/hr IVPB Q8H-IV ANNA; Protocol Last Admin: 04/06/19 17:18 Dose: 100 mls/hr Potassium Chloride/Dextrose/Sod Cl (D5-1/2ns+10 Meq Kcl -) 10 meq in 1,000 mls @ 83 mls/hr IV ASDIR ANNA Last Admin: 04/06/19 19:55 Dose: Not Given Ketoconazole (Nizoral 2% Cream -) 1 applic TP DAILY [facility] Last Admin: 04/06/19 10:04 Dose: 1 applic Metoclopramide HCl (Reglan Injection -) 10 mg IVPUSH Q6H PRN PRN Reason: NAUSEA AND/OR VOMITING Last Admin: 04/04/19 03:46 Dose: 10 mg Metoprolol Succinate (Toprol Xl -) 100 mg PO BID [facility] Last Admin: 04/06/19 21:10 Dose: Not Given Patient was awake, but confused confused. Last Vital Signs Temp Pulse Resp BP Pulse Ox 98.3 F 118 H 20 100/60 100 04/08/19 10:00 04/08/19 10:00 04/08/19 10:00 04/08/19 10:00 04/08/19 09:00 Neck: Supple, no jugular venous distention, carotids were equal. No bruits were heard. Heart: PMI was in the fifth ICS,no heaves or thrills. S1 was variable, S2 was normal, no murmur or gallops wer heard. lungs: Clear on auscultation. Abdomen: Protuberant, obese, nontender, no rebound tendernes, no hepatosplenomegaly was appreciated.bowel sounds were heard. Extremities: No calf tenderness or dependent edema. CBC, BMP 04/08/19 07:00 04/08/19 07:00 Impression: 1. Coronary artery disease, history of remote myocardial infarction, status post PCI, stable angina pectoris. 2. 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 3. Permanent atrial fibrillation. 4. Recent intestinal obstruction. Recommendations: 1. follow-up INR. 2. Continue medications as outlined. Keagan Turner MD.
--- NOTE | 2019-04-08 18:58 | PN ---
Progress Note (short form) - Note Progress Note: FUV left foot. Daughter Tali present. 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 Uric acid level ordered. Will follow.
[2019-04-08] MEDS: diphenhydrAMINE HCL 25 MG CAPSULE (FP) PO SCH (22:28)
[2019-04-09 07:26] LABS: BASO % 0.6 % (0-2.0); EOS % 4.5 % (0-4.5); HEMATOCRIT 34.6 % (32.4-45.2); MCH 31.2 pg (25.7-33.7); MCHC 31.7 g/dl (32.0-36.0); MEAN CELL VOLUME 98.3 fl (80-96); MEAN PLT VOLUME 8.1 fl (7.5-11.1); MONO % 3.4 % (3.8-10.2); NEUT % 75.5 % (42.8-82.8); PLATELET COUNT 197 K/MM3 (134-434); RBC 3.52 M/mm3 (3.60-5.2); RDW 17.6 % (11.6-15.6); WHITE BLOOD COUNT 8.1 K/mm3 (4.0-10.0)
[2019-04-09 07:36] LABS: INR 1.77 (0.83-1.09)
[2019-04-09 07:50] LABS: ALBUMIN 1.5 g/dl (3.4-5.0); CALCIUM 8.5 mg/dL (8.5-10.1); CREATININE 1.3 mg/dL (0.55-1.3); MAGNESIUM 2.1 mg/dL (1.8-2.4); PHOSPHOROUS 2.6 mg/dL (2.5-4.9); POTASSIUM 3.7 mmol/L (3.5-5.1)
[2019-04-09 07:52] LABS: N-TERMINAL BNP 6990.1 pg/ml (5-450); URIC ACID 10.1 mg/dL (2.6-7.2)
--- NOTE | 2019-04-09 09:15 | PN ---
Physical Exam: SUBJECTIVE: Patient seen and examined at the bedside. in no acute distress. painful right parotid mass felt. OBJECTIVE: Patient is an 88 year old female with a significant past medical history of previous SBO s/p hemicolectomy, diverticulitis, HTN, HLD, afib (on eliquis), CVA, presents to the ED with abdominal pain. NGT tube placed on admission for SBO, now removed and started on liquid diet. restarted patient back on eliquis. Vital Signs Period Temp Pulse Resp BP Sys/Kendlal Pulse Ox Last 24 Hr 97.8 F-98.5 F 87-118 18-20 99-117/48-68 96 GENERAL: confused, agitated at times, slurring of words. head ct negative x 2 HEAD: Normal with no signs of trauma EYES: PERRL, extraocular movements intact, sclera anicteric, conjunctiva clear. No ptosis. ENT: Ears normal, nares patent, oropharynx clear without exudates NECK: soft non mobile mass below patient right ear, likely infected salivary gland. LUNGS: Breath sounds equal, clear to auscultation anteriorly HEART: Regular rate and rhythm ABDOMEN: obese abdomen with tenderness to palpation, + bowel sounds. EXTREMITIES: right arm edema NEUROLOGICAL: garbled speech, gait not observed. PSYCH: Normal mood, normal affect. SKIN: Warm, dry, normal turgor, no rashes or lesions noted Laboratory Results - last 24 hr 04/09/19 04/09/19 04/09/19 06:00 06:00 06:00 WBC 8.1 RBC 3.52 L Hgb 11.0 Hct 34.6 MCV 98.3 H MCH 31.2 MCHC 31.7 L RDW 17.6 H Plt Count 197 MPV 8.1 Absolute Neuts (auto) 6.1 Neutrophils % 75.5 Lymphocytes % 16.0 Monocytes % 3.4 L Eosinophils % 4.5 Basophils % 0.6 Nucleated RBC % 0 PT with INR 21.00 H INR 1.77 H Sodium 148 H Potassium 3.7 Chloride 122 H Carbon Dioxide 18 L Anion Gap 8 BUN 17.0 Creatinine 1.3 Est GFR (CKD-EPI)AfAm 42.72 Est GFR (CKD-EPI)NonAf 36.86 Random Glucose 105 Uric Acid Calcium 8.5 Phosphorus 2.6 Magnesium 2.1 Total Bilirubin 1.0 AST 107 H ALT 75 H Alkaline Phosphatase 119 H B-Natriuretic Peptide Total Protein 5.0 L Albumin 1.5 L 04/09/19 06:00 WBC RBC Hgb Hct MCV MCH MCHC RDW Plt Count MPV Absolute Neuts (auto) Neutrophils % Lymphocytes % Monocytes % Eosinophils % Basophils % Nucleated RBC % PT with INR INR Sodium Potassium Chloride Carbon Dioxide Anion Gap BUN Creatinine Est GFR (CKD-EPI)AfAm Est GFR (CKD-EPI)NonAf Random Glucose Uric Acid 10.1 H Calcium Phosphorus Magnesium Total Bilirubin AST ALT Alkaline Phosphatase B-Natriuretic Peptide 6990.1 H Total Protein Albumin Active Medications Generic Name Dose Route Start Last Admin Trade Name Freq PRN Reason Stop Dose Admin Acetaminophen 650 mg 04/06/19 09:47 Tylenol - PO Q6H PRN FEVER Apixaban 5 mg 04/09/19 10:00 Eliquis - PO BID ANNA Aspirin 81 mg 04/07/19 10:00 04/08/19 12:07 Asa - PO Not Given DAILY ANNA Atorvastatin Calcium 40 mg 04/07/19 10:00 04/08/19 10:40 Lipitor - PO 40 mg DAILY ANNA Administration Diphenhydramine HCl 50 mg 04/06/19 22:00 04/08/19 22:28 Benadryl - PO Not Given HS ANNA Potassium Chloride 40 meq/ 1,020 mls @ 75 mls/hr 04/08/19 08:54 04/08/19 21: 37 Dextrose IVPB Not Given Q13H ANNA Ketoconazole 1 applic 04/04/19 02:15 04/08/19 10:41 Nizoral 2% Cream - TP 1 applic DAILY ANNA Administration Metoclopramide HCl 10 mg 04/01/19 06:09 04/04/19 03:46 Reglan Injection - IVPUSH 10 mg Q6H PRN Administration NAUSEA AND/OR VOMITING Metoprolol Succinate 100 mg 04/06/19 22:00 04/08/19 21:37 Toprol Xl - PO Not Given BID ANNA ASSESSMENT/PLAN: Problem List - Problems (1) SBO (small bowel obstruction) Assessment/Plan: s/p ngt placement and now on full liquids, tolerating diet with minimal intake. family at bedside. + bowel sounds, having BMs. Code(s): K56.609 - UNSP INTESTNL OBST, UNSP TO PARTIAL VERSUS COMPLETE OBST (2) Bowel obstruction Assessment/Plan: surgery following no nausea/vomiting tolerating full liquid diet Code(s): K56.609 - UNSP INTESTNL OBST, UNSP TO PARTIAL VERSUS COMPLETE OBST Qualifiers: Intestinal obstruction type: unspecified Intestinal obstruction extent: partial Qualified Code(s): K56.600 - Partial intestinal obstruction, unspecified as to cause (3) Toxic metabolic encephalopathy Assessment/Plan: head ct repeated and negative for stroke. acute metabolic enceph in the setting of elevated inr, acute UTI and poor PO intake. neuro following. no eeg/mri recommended at this time. Code(s): G92 - TOXIC ENCEPHALOPATHY (4) JAROD (acute kidney injury) Assessment/Plan: monitor with daily labs, improving Code(s): N17.9 - ACUTE KIDNEY FAILURE, UNSPECIFIED (5) CVA (cerebral vascular accident) Assessment/Plan: history of cva, has residual expressive aphagia but per family, speech currently more slurred than baseline. head ct negative for acute findings. dr. marin (neuro) following and notes reviewed and appreciated. Code(s): I63.9 - CEREBRAL INFARCTION, UNSPECIFIED (6) Severe sepsis Assessment/Plan: secondary to UTI, lactic acidosis resolved urine cultures with kleb and patient completed 7 days of IV antibiotics. per ID,monitor of antibiotics Code(s): A41.9 - SEPSIS, UNSPECIFIED ORGANISM; R65.20 - SEVERE SEPSIS WITHOUT SEPTIC SHOCK (7) CAD (coronary artery disease) Code(s): I25.10 - ATHSCL HEART DISEASE OF [place] CORONARY ARTERY W/O ANG PCTRS (8) Parotid gland pain Assessment/Plan: acute parotitis, painful to touch ordered warm compresses BID lemon ice with meals given vancomycin one dose and blood cultures drawn prior ent to Code(s): K11.8 - OTHER DISEASES OF [place] (9) Chronic diastolic (congestive) heart failure Code(s): I50.32 - CHRONIC DIASTOLIC (CONGESTIVE) HEART FAILURE (10) Hypertension Assessment/Plan: monitor q 4 Code(s): I10 - ESSENTIAL (PRIMARY) HYPERTENSION (11) Hx pulmonary embolism Assessment/Plan: on eliquis, continue to hold Eliquis secondary to coagulopathy Code(s): Z86.711 - PERSONAL HISTORY OF PULMONARY EMBOLISM (12) Atrial fibrillation Assessment/Plan: on lopressor and eliquis restarted eliquis. inr now stable Code(s): I48.91 - UNSPECIFIED ATRIAL FIBRILLATION (13) Elevated INR Assessment/Plan: inr 1.77, s/p vitamin k Code(s): R79.1 - ABNORMAL COAGULATION PROFILE (14) Abnormal AST and ALT Assessment/Plan: elevated today. liver ultrasound 04/01/2019 was done but reading was limited. showed diffuse fatty infiltration of the liver and marked dilatation of the right renal pelvis. Code(s): R74.8 - ABNORMAL LEVELS OF OTHER SERUM ENZYMES (15) Prophylactic measure Assessment/Plan: fen restarted eliquis Code(s): Z29.9 - ENCOUNTER FOR PROPHYLACTIC MEASURES, UNSPECIFIED Visit type - Emergency Visit Emergency Visit: Yes ED Registration Date: 04/01/19 Care time: The patient presented to the Emergency Department on the above date and was hospitalized for further evaluation of their emergent condition. - New Patient This patient is new to me today: No - Critical Care Critical Care patient: No - Discharge Referral Referred to [facility] No
--- NOTE | 2019-04-09 10:18 | PN ---
Progress Note (short form) - Note Progress Note: asked to f/u right parotid swelling noted by daughter at bedside Vital Signs Period Temp Pulse Resp BP Sys/Kendall Pulse Ox Last 24 Hr 97.8 F-98.5 F 87-108 18-18 99-117/48-68 96 cor-rrr lungs clear abd soft,nt ext +edema, +ecchymoses indurated right parotid painful to tough, minimal erythema CBC, BMP 04/09/19 06:00 04/09/19 06:00 Microbiology 04/05/19 21:15 Foot - Left Gram Stain - Final 04/05/19 21:15 Foot - Left Wound Culture - Final NO AEROBIC OR ANAEROBIC GROWTH OBTAINED. 04/01/19 14:17 Urine - Urine Clean Catch Urine Culture - Final Klebsiella Pneumoniae imp/reccd acute parotitis (right)- suggest warm compresses, lemon drops if possible- ? lemon ice, hydration if possible vancomycin one dose after blood culture ent alexys d/w hospitalist d/w carmen at length at bedside
[2019-04-09] MEDS ORDERED: PT OWN MED DRAWER 7, Y5N ONE (10:21)
--- NOTE | 2019-04-09 10:21 | PN ---
Progress Note (short form) - Note Progress Note: 88 year old female history of SBO s/p hemicolectomy, diverticulitis, HTN, HLD , afib (on eliquis), CVA, presented to hospital for abdominal pain and suspected to have SBO. Patient is on eliquis and her inr was in 4s, and her eliquis and aspirin was on hold . She was dysarthric and as per family she was not confused. She could not sleep on april 03 and after getting benadryl today she is sleeping now. Patient has ct head showed old lacunar stroke in left frontal region and no acute bleeding. She is moving all extremity, There is no fever or seizure like activity. Paitent has been awake and alert and follow command no newcomplain, there is speech difficulty, NEUROLOGICAL EXAMIANTION alert and follow command and speech is slurred and at times she has trouble getting words out neck is supple afebrile , vss, eomi, puils reactive no face asymmetry moving all ext repeat ct head unchanged Assessment/Plan delirium secondary to intercurrent illness and medication, and hospitalization. Unlikley to be new stroke , eliquis is on hold as INR was High ct head is unremarkable, unlikley to be new stroke. Plan: no need for eeg or mri at this time - repeat ct findings were discussed with patient, unlikstanislav to be stroke, most likley her symptoms are due to metabolic encpehalopathy -continue speech therapy continue supprotive care Thanking you so much Dino Rodriguez MD
[2019-04-09] MEDS: POTASSIUM CHLORIDE 40 MEQ in DEXTROSE 5%-WATER - 1,000 ML IVPB SCH ×2 (10:29→23:43)
--- NOTE | 2019-04-09 11:08 | PN ---
Progress Note (short form) - Note Progress Note: Renal follow up for electrolyte abnormalities Seen and examined at the bedside awake and alert daughter at the bedside eating very little on IVF Vital Signs Temperature 98.8 F 04/09/19 10:33 Pulse Rate 86 04/09/19 10:33 Respiratory Rate 18 04/09/19 10:33 Blood Pressure 99/49 L 04/09/19 10:33 O2 Sat by Pulse Oximetry (%) 96 04/08/19 21:00 Intake & Output 04/06/19 04/07/19 04/08/19 04/09/19 23:59 23:59 23:59 23:59 Intake Total 2584 959 1821 900 Balance 2584 959 1821 900 NAD RRR, no M/R CTA, no rales or wheeze + distension, less tenderness + edema right arm CBC, BMP 04/09/19 06:00 04/09/19 06:00 Current Medications Acetaminophen (Tylenol -) 650 mg PO Q6H PRN PRN Reason: FEVER Apixaban (Eliquis -) 5 mg PO BID [facility] Aspirin (Asa -) 81 mg PO DAILY [facility] Last Admin: 04/08/19 12:07 Dose: Not Given Atorvastatin Calcium (Lipitor -) 40 mg PO DAILY [facility] Last Admin: 04/08/19 10:40 Dose: 40 mg Diphenhydramine HCl (Benadryl -) 50 mg PO HS [facility] Last Admin: 04/08/19 22:28 Dose: Not Given Potassium Chloride 40 meq/ (Dextrose) 1,020 mls @ 75 mls/hr IVPB Q13H [facility] Last Admin: 04/09/19 10:29 Dose: 75 mls/hr Vancomycin HCl (Vancomycin (Pre-Docked)) 1,000 mg in 250 mls @ 166.667 mls/hr IVPB ONCE ONE; Protocol Stop: 04/09/19 12:44 Ketoconazole (Nizoral 2% Cream -) 1 applic TP DAILY [facility] Last Admin: 04/08/19 10:41 Dose: 1 applic Metoclopramide HCl (Reglan Injection -) 10 mg IVPUSH Q6H PRN PRN Reason: NAUSEA AND/OR VOMITING Last Admin: 04/04/19 03:46 Dose: 10 mg Metoprolol Succinate (Toprol Xl -) 100 mg PO BID [facility] Last Admin: 04/08/19 21:37 Dose: Not Given Sulfacetamide Sodium (Bleph-10 Ophthalmic Solution -) 2 drop OU QID ANNA 88 year old woman with history of recurrent small bowel obstructions, hypertension, CAD, CVA, PE, CHF who presented from home with abdominal pain and N/V and found to have partial SBO now with hypernatremia, hypokalemia and hypomagnesemia. 1. Hypokalemia likely secondary to GI losses 2. Hypomagnesmeia 3. Hypernatremia from isotonic saline infusion and increased water losses 4. Non-anion gap metabolic acidosis 5. Partial small bowel obstruction 6. Confusion/AMS Mg, K and phos improved Serum Na is improved but remains above normal, continue D5W continue antibiotics as per ID Neurology follow up noted Thank you Yoel Torres DO
[2019-04-09] MEDS ORDERED: VANCOMYCIN 1 GRAM (PRE-DOCKED) 1,000 MG/250 ML BAG IVPB ONE (11:15)
[2019-04-09] MEDS: ASPIRIN 81 MG CHEWABLE TABLETS PO SCH (11:43)
[2019-04-09] MEDS: SULFACETAMIDE SODIUM 10% OPHTHALMIC DROPS 15 ML BOTTLE OU SCH ×4 (11:45→22:05)
[2019-04-09] MEDS: APIXABAN 5 MG TABLET PO SCH ×2 (11:45→22:04)
[2019-04-09] MEDS: ATORVASTATIN CA 10 MG TABLET (FP) PO SCH (11:45)
[2019-04-09] MEDS: KETOCONAZOLE 2% CREAM - 60GM TUBE TP SCH (12:13)
[2019-04-09] MEDS: diphenhydrAMINE HCL 25 MG CAPSULE (FP) PO SCH (21:58)
[2019-04-10] MEDS: POTASSIUM CHLORIDE 40 MEQ in DEXTROSE 5%-WATER - 1,000 ML IVPB SCH ×3 (04:46→22:12)
--- NOTE | 2019-04-10 09:22 | PN ---
Progress Note (short form) - Note Progress Note: 88 year old female history of SBO s/p hemicolectomy, diverticulitis, HTN, HLD , afib (on eliquis), CVA, presented to hospital for abdominal pain and suspected to have SBO. Patient is on eliquis and on admission her inr was in 4s , and her eliquis and aspirin was on hold initially and on april inr was 1.7 after giving vtamin k. Patient has ct head showed old lacunar stroke in left frontal region and no acute bleeding. She is moving all extremity, There is no fever or seizure like activity. Patient has two ct head and they were unremarkable. She has been sleepy and arousable. she opens her eye and moving all ext . There was no sedation. Her electrolyte are pending. NEUROLOGICAL EXAMIANTION sleepy and arounsable with painful stimuli neck is supple afebrile , vss, eomi, puils reactive no face asymmetry moving all ext repeat ct head unchanged Assessment/Plan delirium secondary to intercurrent illness and medication, and hospitalization. Unlikley to be new stroke , eliquis is on hold as INR was High now back to 1.7 Plan: no need for eeg or mri at this time - continue speech /swallowing and would wait for their advice regarding swallowing. - medication reviewed, there is no sedation given. Patient most marga have fluctuation in mentation due to metabolic encephalopathy, electrolyte imbalance . advice to do pulse ox and accucheck. There is no need for ct head, if there is any change of mental status would do repeat ct head continue supportive care continue supprotive care Thanking you so much Dino Rodriguez MD
[2019-04-10] MEDS ORDERED: FUROSEMIDE 40 MG/4 ML INJECTABLE VIAL IVPUSH ONE (09:31)
--- NOTE | 2019-04-10 10:06 | PN ---
Progress Note, SPEECH CORRECTION ASSISTANT - Note Progress Note: Selected Entries 04/09/19 04/09/19 04/09/19 09:30 14:00 22:15 Breakfast 25% Lunch 0 Supper 0 Laboratory Tests 04/08/19 04/09/19 07:00 06:00 WBC 10.2 H 8.1 On full liquid to nectar thickness. Lethargic, w/u in progress
[2019-04-10] MEDS: SULFACETAMIDE SODIUM 10% OPHTHALMIC DROPS 15 ML BOTTLE OU SCH ×4 (11:15→22:12)
[2019-04-10] MEDS: KETOCONAZOLE 2% CREAM - 60GM TUBE TP SCH (11:15)
--- NOTE | 2019-04-10 11:39 | PN ---
Physical Exam: SUBJECTIVE: Patient seen and examined at the bedside. lethargic today, arousable to touch. family at bedside. per daughter in law, family discussing possible palliative options. abg ordered/labs ordered but patient with edema and labs difficult to draw today , family refused further attempts to draw labs today. OBJECTIVE: for lasix and albumin for volume overload ------- Patient is an 88 year old female with a significant past medical history of previous SBO s/p hemicolectomy, diverticulitis, HTN, HLD, afib (on eliquis), CVA, presents to the ED with abdominal pain. NGT tube placed on admission for SBO, now removed and started on liquid diet, but with very poor PO intake. More lethargic today. Spoke to son and daughter in law and family considering palliative care. Vital Signs Period Temp Pulse Resp BP Sys/Kendall Pulse Ox Last 24 Hr 97.7 F-98.8 F 90-103 18-20 89-116/43-55 98 GENERAL: lethargic, arousable to touch HEAD: Normal with no signs of trauma EYES: PERRL, extraocular movements intact, sclera anicteric, conjunctiva clear. No ptosis. ENT: Ears normal, nares patent, oropharynx clear without exudates NECK: soft non mobile mass below patient right ear, likely infected salivary gland, smaller today and less painful LUNGS: Breath sounds equal, diminished bilaterally HEART: Regular rate and rhythm ABDOMEN: obese abdomen with tenderness to palpation, + bowel sounds. EXTREMITIES: bilateral arm edema NEUROLOGICAL: garbled speech, gait not observed. PSYCH: sleepy, lethargic SKIN: Warm, dry, normal turgor, no rashes or lesions noted Laboratory Results - last 24 hr 04/10/19 09:21 POC Glucometer 100 Active Medications Generic Name Dose Route Start Last Admin Trade Name Freq PRN Reason Stop Dose Admin Acetaminophen 650 mg 04/06/19 09:47 Tylenol - PO Q6H PRN FEVER Apixaban 5 mg 04/09/19 10:00 04/09/19 22:04 Eliquis - PO 5 mg BID ANNA Administration Aspirin 81 mg 04/07/19 10:00 04/09/19 11:43 Asa - PO 81 mg DAILY ANNA Administration Atorvastatin Calcium 40 mg 04/07/19 10:00 04/09/19 11:45 Lipitor - PO 40 mg DAILY ANNA Administration Diphenhydramine HCl 50 mg 04/06/19 22:00 04/09/19 21:58 Benadryl - PO Not Given HS ANNA Potassium Chloride 40 meq/ 1,020 mls @ 75 mls/hr 04/08/19 08:54 04/10/19 04: 46 Dextrose IVPB 75 mls/hr Q13H ANNA Administration Ketoconazole 1 applic 04/04/19 02:15 04/10/19 11:15 Nizoral 2% Cream - TP 1 applic DAILY ANNA Administration Metoclopramide HCl 10 mg 04/01/19 06:09 04/04/19 03:46 Reglan Injection - IVPUSH 10 mg Q6H PRN Administration NAUSEA AND/OR VOMITING Metoprolol Succinate 100 mg 04/06/19 22:00 04/10/19 11:16 Toprol Xl - PO Not Given BID ANNA Sulfacetamide Sodium 2 drop 04/09/19 10:00 04/10/19 11:15 Bleph-10 Ophthalmic Solution - OU 2 drop QID ANNA Administration ASSESSMENT/PLAN: Problem List - Problems (1) SBO (small bowel obstruction) Assessment/Plan: s/p ngt placement and now on full liquids, tolerating diet with minimal intake. family at bedside. + bowel sounds, having BMs. Code(s): K56.609 - UNSP INTESTNL OBST, UNSP TO PARTIAL VERSUS COMPLETE OBST (2) Bowel obstruction Assessment/Plan: surgery following no nausea/vomiting tolerating full liquid diet Code(s): K56.609 - UNSP INTESTNL OBST, UNSP TO PARTIAL VERSUS COMPLETE OBST Qualifiers: Intestinal obstruction type: unspecified Intestinal obstruction extent: partial Qualified Code(s): K56.600 - Partial intestinal obstruction, unspecified as to cause (3) Toxic metabolic encephalopathy Assessment/Plan: mentation worse today, head ct negative x 2 for acute stroke. discussed with neurologist and repeat head ct, eeg or mri not recommended at this time. acute metabolic enceph in the setting of electrolyte imbalance, acute UTI and poor PO intake. Code(s): G92 - TOXIC ENCEPHALOPATHY (4) JAROD (acute kidney injury) Assessment/Plan: monitor with daily labs, improving Code(s): N17.9 - ACUTE KIDNEY FAILURE, UNSPECIFIED (5) CVA (cerebral vascular accident) Assessment/Plan: history of cva, has residual expressive aphagia but per family, speech currently more slurred than baseline. head ct negative for acute findings. dr. marin (neuro) following and notes reviewed and appreciated. Code(s): I63.9 - CEREBRAL INFARCTION, UNSPECIFIED (6) Severe sepsis Assessment/Plan: secondary to UTI, lactic acidosis resolved urine cultures with kleb and patient completed 7 days of IV antibiotics. per ID,monitor of antibiotics Code(s): A41.9 - SEPSIS, UNSPECIFIED ORGANISM; R65.20 - SEVERE SEPSIS WITHOUT SEPTIC SHOCK (7) CAD (coronary artery disease) Code(s): I25.10 - ATHSCL HEART DISEASE OF [place] CORONARY ARTERY W/O ANG PCTRS (8) Parotid gland pain Assessment/Plan: acute parotitis ordered warm compresses BID lemon ice with meals if able to tolerate PO given vancomycin one dose on 04/09/19 and blood cultures drawn ent if no improvement Code(s): K11.8 - OTHER DISEASES OF [place] (9) Chronic diastolic (congestive) heart failure Assessment/Plan: given lasix 20 today Code(s): I50.32 - CHRONIC DIASTOLIC (CONGESTIVE) HEART FAILURE (10) Hypertension Assessment/Plan: monitor q 4 Code(s): I10 - ESSENTIAL (PRIMARY) HYPERTENSION (11) Hx pulmonary embolism Assessment/Plan: on eliquis, continue to hold Eliquis secondary to coagulopathy Code(s): Z86.711 - PERSONAL HISTORY OF PULMONARY EMBOLISM (12) Atrial fibrillation Assessment/Plan: on lopressor and eliquis restarted eliquis. inr now stable Code(s): I48.91 - UNSPECIFIED ATRIAL FIBRILLATION (13) Elevated INR Assessment/Plan: resolved s/p vitamin K Code(s): R79.1 - ABNORMAL COAGULATION PROFILE (14) Abnormal AST and ALT Assessment/Plan: trending down. Code(s): R74.8 - ABNORMAL LEVELS OF OTHER SERUM ENZYMES (15) Prophylactic measure Assessment/Plan: fen restarted eliquis Code(s): Z29.9 - ENCOUNTER FOR PROPHYLACTIC MEASURES, UNSPECIFIED Visit type - Emergency Visit Emergency Visit: Yes ED Registration Date: 04/01/19 Care time: The patient presented to the Emergency Department on the above date and was hospitalized for further evaluation of their emergent condition. - New Patient This patient is new to me today: No - Critical Care Critical Care patient: No - Discharge Referral Referred to [facility] Med [facility] No
--- NOTE | 2019-04-10 12:41 | PN ---
Progress Note (short form) - Note Progress Note: Renal follow up for electrolyte abnormalities Seen and examined at the bedside sleeping, lethargic family at the bedside poor oral intake on IVF NAD RRR, no M/R Decreased BS + distension, less tenderness + peripheral edema CBC, BMP 04/09/19 06:00 04/09/19 06:00 Current Medications Acetaminophen (Tylenol -) 650 mg PO Q6H PRN PRN Reason: FEVER Albumin Human (Albumin Human 25%) 12.5 gm IVPB BID@0530,1330 [facility] Stop: 04/12/19 05:31 Apixaban (Eliquis -) 5 mg PO BID [facility] Last Admin: 04/09/19 22:04 Dose: 5 mg Aspirin (Asa -) 81 mg PO DAILY [facility] Last Admin: 04/09/19 11:43 Dose: 81 mg Atorvastatin Calcium (Lipitor -) 40 mg PO DAILY [facility] Last Admin: 04/09/19 11:45 Dose: 40 mg Diphenhydramine HCl (Benadryl -) 50 mg PO HS [facility] Last Admin: 04/09/19 21:58 Dose: Not Given Furosemide (Lasix Injection -) 20 mg IVPUSH BID@0600,1400 [facility] Potassium Chloride 40 meq/ (Dextrose) 1,020 mls @ 75 mls/hr IVPB Q13H [facility] Last Admin: 04/10/19 04:46 Dose: 75 mls/hr Ketoconazole (Nizoral 2% Cream -) 1 applic TP DAILY [facility] Last Admin: 04/10/19 11:15 Dose: 1 applic Metoclopramide HCl (Reglan Injection -) 10 mg IVPUSH Q6H PRN PRN Reason: NAUSEA AND/OR VOMITING Last Admin: 04/04/19 03:46 Dose: 10 mg Metoprolol Succinate (Toprol Xl -) 100 mg PO BID [facility] Last Admin: 04/10/19 11:16 Dose: Not Given Sulfacetamide Sodium (Bleph-10 Ophthalmic Solution -) 2 drop OU QID [facility] Last Admin: 04/10/19 11:15 Dose: 2 drop 88 year old woman with history of recurrent small bowel obstructions, hypertension, CAD, CVA, PE, CHF who presented from home with abdominal pain and N/V and found to have partial SBO now with hypernatremia, hypokalemia and hypomagnesemia. 1. Hypokalemia likely secondary to GI losses 2. Hypomagnesmeia 3. Hypernatremia from isotonic saline infusion and increased water losses 4. Non-anion gap metabolic acidosis 5. Partial small bowel obstruction 6. Confusion/AMS Renal function stable as of yesterday unable to draw labs today given edema likely due to third spacing will start lasix 20mg IV BID wit IV Albumin to be given before it Continue D5W with KCl overall prognosis is guarded Thank you Yoel Torres DO
[2019-04-10] MEDS: ASPIRIN 81 MG CHEWABLE TABLETS PO SCH (13:28)
[2019-04-10] MEDS: ATORVASTATIN CA 10 MG TABLET (FP) PO SCH (13:29)
[2019-04-10] MEDS ORDERED: ALBUMIN HUMAN 25% 12.5 GM/50 ML VIAL IVPB SCH ×2 (13:30→13:52)
[2019-04-10] MEDS ORDERED: ALBUMIN HUMAN 25% 100 ML VIAL IVPB SCH (13:50)
[2019-04-10] MEDS ORDERED: FUROSEMIDE 40 MG/4 ML INJECTABLE VIAL IVPUSH SCH (14:30)
[2019-04-10] MEDS: APIXABAN 5 MG TABLET PO SCH ×2 (14:44→22:08)
--- NOTE | 2019-04-10 14:50 | PN ---
Progress Note (short form) - Note Progress Note: FUV left foot. 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 Will follow.
[2019-04-10] MEDS: ALBUMIN HUMAN 25% 12.5 GM/50 ML VIAL IVPB SCH (15:40)
[2019-04-10] MEDS: FUROSEMIDE 40 MG/4 ML INJECTABLE VIAL IVPUSH SCH (17:19)
--- NOTE | 2019-04-10 17:27 | PN ---
Progress Note (short form) - Note Progress Note: extremely lethargic unable to draw labs today patients family has elected to make her dnr/dni she is not eating +BM Vital Signs Period Temp Pulse Resp BP Sys/Kendall Pulse Ox Last 24 Hr 97.7 F-98.8 F 92-108 16- 85-120/44-83 100 cor-rrr lungs decreased bs at bases right parotid swelling unchanged abd soft,nt ext +edema of the arms, multiple ecchymoses CBC, BMP 04/09/19 06:00 04/09/19 06:00 imp/reccd overall declining- anasarca- trial lasix and albumin per renal acute parotitis (right)- suggest warm compresses, lemon drops if possible- ? lemon ice, hydration if possible d/w daughter at length at bedside
[2019-04-10] MEDS ORDERED: PT OWN MED DRAWER 7, Y5N ONE ×2 (17:34→20:21)
[2019-04-10] MEDS: diphenhydrAMINE HCL 25 MG CAPSULE (FP) PO SCH (22:08)
--- NOTE | 2019-04-10 22:55 | PN ---
Progress Note (short form) - Note Progress Note: 88-year-old female known case of coronary artery disease, remote myocardial infarction, status post PCI, atrial fibrillation, status post cerebrovascular accident, hypertension. Patient has been confused and is poorly responsive. developed congestive heart failure and abnormal liver function tests which are improving since being placed on diuretic.Uric acid is elevated.significantly elevated BNP. Active Medications Generic Name Dose Route Start Last Admin Trade Name Freq PRN Reason Stop Dose Admin Acetaminophen 650 mg 04/06/19 09:47 Tylenol - PO Q6H PRN FEVER Albumin Human 12.5 gm 04/10/19 15:30 04/10/19 15:40 Albumin Human 25% IVPB 04/12/19 05:31 12.5 gm BID@0530,1330 ANNA Administration Apixaban 5 mg 04/09/19 10:00 04/10/19 22:08 Eliquis - PO Not Given BID ANNA Aspirin 81 mg 04/07/19 10:00 04/10/19 13:28 Asa - PO Not Given DAILY ANNA Atorvastatin Calcium 40 mg 04/07/19 10:00 04/10/19 13:29 Lipitor - PO Not Given DAILY ANNA Diphenhydramine HCl 50 mg 04/06/19 22:00 04/10/19 22:08 Benadryl - PO Not Given HS ANNA Furosemide 20 mg 04/10/19 16:00 04/10/19 17:19 Lasix Injection - IVPUSH 20 mg BID@0600,1400 ANNA Administration Potassium Chloride 40 meq/ 1,020 mls @ 75 mls/hr 04/08/19 08:54 04/10/19 22: 12 Dextrose IVPB 75 mls/hr Q13H ANNA Administration Ketoconazole 1 applic 04/04/19 02:15 04/10/19 11:15 Nizoral 2% Cream - TP 1 applic DAILY ANNA Administration Metoclopramide HCl 10 mg 04/01/19 06:09 04/04/19 03:46 Reglan Injection - IVPUSH 10 mg Q6H PRN Administration NAUSEA AND/OR VOMITING Metoprolol Succinate 100 mg 04/06/19 22:00 04/10/19 22:08 Toprol Xl - PO Not Given BID ANNA Sulfacetamide Sodium 2 drop 04/09/19 10:00 04/10/19 22:12 Bleph-10 Ophthalmic Solution - OU 2 drop QID ANNA Administration Patient is not communicative. Last Vital Signs Temp Pulse Resp BP Pulse Ox 97.9 F 107 H 18 92/42 L 100 04/10/19 22:00 04/10/19 22:00 04/10/19 22:00 04/10/19 22:00 04/10/19 09:00 Neck: Supple, no jugular venous distention, carotids were equal. No bruits were heard. Heart: PMI was in the fifth ICS,no heaves or thrills. S1 was variable, S2 was normal, no murmur or gallops wer heard. lungs: decreased breath sounds at both bases. Abdomen: Protuberant, obese, nontender, no rebound tendernes, no hepatosplenomegaly was appreciated.bowel sounds were heard. Extremities: No calf tenderness, pitting edema involving and 2+ pretibial edema bilaterally. CBC, BMP 04/09/19 06:00 04/09/19 06:00 Impression: 1. Coronary artery disease, history of remote myocardial infarction, status post PCI, stable angina pectoris. 2. unresponsiveness, etiology is being determined 3. Permanent atrial fibrillation. 4. Congestive heart failure. 5. Hyperuricemia. 6. Hypoproteinemia. 7. Progressiveunresponsiveness 8. Recent intestinal obstruction. 9. Abnormal LFTs and recent elevation of INR partly related to hepatic congestion. Recommendations: 1. Check ammonia level. 2. Agree with use of salt poor albumin infusion prior to the use of diuretic. 3. Treatment for hyperuricemia. 4. Neurological follow-up. Keagan Turner MD face to face discussion for 30 minutes with son and daughter regarding patient' s clinical status including CHF and progressive change and deterioration of the mental status.
[2019-04-11] MEDS: POTASSIUM CHLORIDE 40 MEQ in DEXTROSE 5%-WATER - 1,000 ML IVPB SCH ×2 (03:11→17:36)
[2019-04-11] MEDS: ALBUMIN HUMAN 25% 12.5 GM/50 ML VIAL IVPB SCH ×2 (05:39→16:54)
[2019-04-11] MEDS: FUROSEMIDE 40 MG/4 ML INJECTABLE VIAL IVPUSH SCH ×3 (06:11→19:57)
[2019-04-11] MEDS: ASPIRIN 81 MG CHEWABLE TABLETS PO SCH (11:23)
[2019-04-11] MEDS: ATORVASTATIN CA 10 MG TABLET (FP) PO SCH (11:24)
[2019-04-11] MEDS: APIXABAN 5 MG TABLET PO SCH ×2 (11:24→22:11)
--- NOTE | 2019-04-11 13:58 | PN ---
Progress Note (short form) - Note Progress Note: 88 year old female history of SBO s/p hemicolectomy, diverticulitis, HTN, HLD , afib (on eliquis), CVA, presented to hospital for abdominal pain and suspected to have SBO. Patient is on eliquis and on admission her inr was in 4s , and her eliquis and aspirin was on hold initially and on april inr was 1.7 after giving vtamin k. Patient has ct head showed old lacunar stroke in left frontal region and no acute bleeding. She ahs been declining for few days and less reponsive and sleepy and could not draw blood yesterday. She has been made dnr NEUROLOGICAL EXAMIANTION sleepy and arounsable with painful stimuli neck is supple afebrile , vss, eomi, puils reactive no face asymmetry moving all ext repeat ct head unchanged( two ct head since in shiopital Assessment/Plan delirium secondary to intercurrent illness and medication, and hospitalization. Her mental status has worsened and she is sleepy though arousable. She is made DNI /DNR Plan: no need for eeg or mri at this time - speech eval noticed - medication reviewed continue supportive care, prognosis is guarded Thanking you so much Dino Rodriguez MD
--- NOTE | 2019-04-11 15:04 | PN ---
Physical Exam: SUBJECTIVE: Patient seen and examined Patient seen and examined at the bedside. still lethargic today, arousable to touch. family at bedside. per daughter in law, family discussing possible palliative options. labs ordered but patient with edema and labs difficult to draw today, family refused further attempts to draw labs today. will defer labs for tomorrow as the goal is comfort. family asking for a air transportation provider/breezy visit. OBJECTIVE: or lasix and albumin for volume overload ------- Patient is an 88 year old female with a significant past medical history of previous SBO s/p hemicolectomy, diverticulitis, HTN, HLD, afib (on eliquis), CVA, presents to the ED with abdominal pain. NGT tube placed on admission for SBO, now removed and started on liquid diet, but with very poor PO intake. Hospitalization further complicated when patient progressively became confused and poorly responsive. She then developed congestive heart failure, abnormal liver function tests, elevated uric acid levels and significant elevated BNP. She remains poorly responsive and volume overloaded and is currently on albumin and lasix. Period Temp Pulse Resp BP Sys/Kendall Pulse Ox Last 24 Hr 97.9 F-98.3 F 107-118 16-20 92-120/42-83 97 GENERAL: lethargic, arousable to touch HEAD: Normal with no signs of trauma EYES: PERRL, extraocular movements intact, sclera anicteric, conjunctiva clear. No ptosis. ENT: Ears normal, nares patent, oropharynx clear without exudates NECK: soft non mobile mass below patient right ear, likely infected salivary gland, smaller today and less painful LUNGS: Breath sounds equal, diminished bilaterally HEART: Regular rate and rhythm ABDOMEN: obese abdomen with tenderness to palpation, + bowel sounds. EXTREMITIES: bilateral arm edema NEUROLOGICAL: garbled speech, gait not observed. PSYCH: sleepy, lethargic SKIN: Warm, dry, normal turgor, no rashes or lesions noted Active Medications Generic Name Dose Route Start Last Admin Trade Name Freq PRN Reason Stop Dose Admin Acetaminophen 650 mg 04/06/19 09:47 Tylenol - PO Q6H PRN FEVER Albumin Human 12.5 gm 04/10/19 15:30 04/11/19 05:39 Albumin Human 25% IVPB 04/12/19 05:31 12.5 gm BID@0530,1330 ANNA Administration Apixaban 5 mg 04/09/19 10:00 04/11/19 11:24 Eliquis - PO Not Given BID [facility] Aspirin 81 mg 04/07/19 10:00 04/11/19 11:23 Asa - PO Not Given DAILY ANNA Atorvastatin Calcium 40 mg 04/07/19 10:00 04/11/19 11:24 Lipitor - PO Not Given DAILY ANNA Diphenhydramine HCl 50 mg 04/06/19 22:00 04/10/19 22:08 Benadryl - PO Not Given HS ANNA Furosemide 20 mg 04/10/19 16:00 04/11/19 06:11 Lasix Injection - IVPUSH 20 mg BID@0600,1400 ANNA Administration Potassium Chloride 40 meq/ 1,020 mls @ 75 mls/hr 04/08/19 08:54 04/11/19 03: 11 Dextrose IVPB Not Given Q13H ANNA Ketoconazole 1 applic 04/04/19 02:15 04/10/19 11:15 Nizoral 2% Cream - TP 1 applic DAILY [facility] Administration Metoclopramide HCl 10 mg 04/01/19 06:09 04/04/19 03:46 Reglan Injection - IVPUSH 10 mg Q6H PRN Administration NAUSEA AND/OR VOMITING Metoprolol Succinate 100 mg 04/06/19 22:00 04/11/19 11:24 Toprol Xl - PO Not Given BID [facility] Sulfacetamide Sodium 2 drop 04/09/19 10:00 04/10/19 22:12 Bleph-10 Ophthalmic Solution - OU 2 drop QID ANNA Administration ASSESSMENT/PLAN: Problem List - Problems (1) SBO (small bowel obstruction) Assessment/Plan: s/p ngt placement and now on full liquids, tolerating diet but with very minimal intake. family at bedside. + bowel sounds, having BMs. Code(s): K56.609 - UNSP INTESTNL OBST, UNSP TO PARTIAL VERSUS COMPLETE OBST (2) Bowel obstruction Assessment/Plan: surgery following no nausea/vomiting minimally tolerating a full liquid diet Code(s): K56.609 - UNSP INTESTNL OBST, UNSP TO PARTIAL VERSUS COMPLETE OBST Qualifiers: Intestinal obstruction type: unspecified Intestinal obstruction extent: partial Qualified Code(s): K56.600 - Partial intestinal obstruction, unspecified as to cause (3) Toxic metabolic encephalopathy Assessment/Plan: mentation worse today, head ct negative x 2 for acute stroke. discussed with neurologist and repeat head ct, eeg or mri not recommended at this time. acute metabolic enceph in the setting of electrolyte imbalance, acute UTI and poor PO intake. Code(s): G92 - TOXIC ENCEPHALOPATHY (4) JAROD (acute kidney injury) Assessment/Plan: improving Code(s): N17.9 - ACUTE KIDNEY FAILURE, UNSPECIFIED (5) CVA (cerebral vascular accident) Assessment/Plan: history of cva, has residual expressive aphasia but per family, speech currently more slurred than baseline. head ct negative for acute findings. dr. marin (neuro) following and notes reviewed and appreciated. Code(s): I63.9 - CEREBRAL INFARCTION, UNSPECIFIED (6) Severe sepsis Assessment/Plan: secondary to UTI, lactic acidosis resolved urine cultures with kleb and patient completed 7 days of IV antibiotics. per ID,monitor of antibiotics Code(s): A41.9 - SEPSIS, UNSPECIFIED ORGANISM; R65.20 - SEVERE SEPSIS WITHOUT SEPTIC SHOCK (7) CAD (coronary artery disease) Code(s): I25.10 - ATHSCL HEART DISEASE OF [place] CORONARY ARTERY W/O ANG PCTRS (8) Parotid gland pain Assessment/Plan: acute parotitis ordered warm compresses BID lemon ice with meals if able to tolerate PO given vancomycin one dose on 04/09/19 and blood cultures drawn ent if no improvement Code(s): K11.8 - OTHER DISEASES OF [place] (9) Chronic diastolic (congestive) heart failure Assessment/Plan: given lasix 20 today Code(s): I50.32 - CHRONIC DIASTOLIC (CONGESTIVE) HEART FAILURE (10) Hypertension Assessment/Plan: monitor q 4 Code(s): I10 - ESSENTIAL (PRIMARY) HYPERTENSION (11) Hx pulmonary embolism Assessment/Plan: on eliquis Code(s): Z86.711 - PERSONAL HISTORY OF PULMONARY EMBOLISM (12) Atrial fibrillation Assessment/Plan: on lopressor and eliquis restarted eliquis. inr now stable Code(s): I48.91 - UNSPECIFIED ATRIAL FIBRILLATION (13) Elevated INR Assessment/Plan: resolved s/p vitamin K Code(s): R79.1 - ABNORMAL COAGULATION PROFILE (14) Abnormal AST and ALT Assessment/Plan: trending down. Code(s): R74.8 - ABNORMAL LEVELS OF OTHER SERUM ENZYMES (15) Prophylactic measure Assessment/Plan: fen on eliquis Code(s): Z29.9 - ENCOUNTER FOR PROPHYLACTIC MEASURES, UNSPECIFIED (16) DNR no code (do not resuscitate) Assessment/Plan: as per molst form and family wishes Code(s): Z66 - DO NOT RESUSCITATE (17) DNI (do not intubate) Assessment/Plan: as per molst form and family wishes Code(s): Z78.9 - OTHER SPECIFIED HEALTH STATUS Visit type - Emergency Visit Emergency Visit: Yes ED Registration Date: 04/01/19 Care time: The patient presented to the Emergency Department on the above date and was hospitalized for further evaluation of their emergent condition. - New Patient This patient is new to me today: No - Critical Care Critical Care patient: No - Discharge Referral Referred to [facility] Med [facility] No
--- NOTE | 2019-04-11 15:31 | PN ---
Progress Note (short form) - Note Progress Note: Renal follow up for electrolyte abnormalities Seen and examined at the bedside lethargic family at the bedside not eating was made DNR/DNI yesterday Vital Signs Temperature 98.1 F 04/11/19 13:40 Pulse Rate 108 H 04/11/19 13:40 Respiratory Rate 20 04/11/19 13:40 Blood Pressure 95/43 L 04/11/19 13:40 O2 Sat by Pulse Oximetry (%) 98 04/11/19 09:00 Intake & Output 04/08/19 04/09/19 04/10/19 04/11/19 23:59 23:59 23:59 23:59 Intake Total 1821 1150 1200 600 Balance 1821 1150 1200 600 NAD RRR, no M/R Decreased BS + distension, less tenderness + peripheral edema CBC, BMP 04/09/19 06:00 04/09/19 06:00 Current Medications Acetaminophen (Tylenol -) 650 mg PO Q6H PRN PRN Reason: FEVER Albumin Human (Albumin Human 25%) 12.5 gm IVPB BID@0530,1330 [facility] Stop: 04/12/19 05:31 Last Admin: 04/11/19 05:39 Dose: 12.5 gm Apixaban (Eliquis -) 5 mg PO BID [facility] Last Admin: 04/11/19 11:24 Dose: Not Given Aspirin (Asa -) 81 mg PO DAILY [facility] Last Admin: 04/11/19 11:23 Dose: Not Given Atorvastatin Calcium (Lipitor -) 40 mg PO DAILY [facility] Last Admin: 04/11/19 11:24 Dose: Not Given Diphenhydramine HCl (Benadryl -) 50 mg PO HS [facility] Last Admin: 04/10/19 22:08 Dose: Not Given Furosemide (Lasix Injection -) 20 mg IVPUSH BID@0600,1400 [facility] Last Admin: 04/11/19 06:11 Dose: 20 mg Potassium Chloride 40 meq/ (Dextrose) 1,020 mls @ 75 mls/hr IVPB Q13H [facility] Last Admin: 04/11/19 03:11 Dose: Not Given Ketoconazole (Nizoral 2% Cream -) 1 applic TP DAILY [facility] Last Admin: 04/10/19 11:15 Dose: 1 applic Metoclopramide HCl (Reglan Injection -) 10 mg IVPUSH Q6H PRN PRN Reason: NAUSEA AND/OR VOMITING Last Admin: 04/04/19 03:46 Dose: 10 mg Metoprolol Succinate (Toprol Xl -) 100 mg PO BID [facility] Last Admin: 04/11/19 11:24 Dose: Not Given Sulfacetamide Sodium (Bleph-10 Ophthalmic Solution -) 2 drop OU QID [facility] Last Admin: 04/10/19 22:12 Dose: 2 drop 88 year old woman with history of recurrent small bowel obstructions, hypertension, CAD, CVA, PE, CHF who presented from home with abdominal pain and N/V and found to have partial SBO now with hypernatremia, hypokalemia and hypomagnesemia. 1. Hypokalemia likely secondary to GI losses 2. Hypomagnesmeia 3. Hypernatremia from isotonic saline infusion and increased water losses 4. Non-anion gap metabolic acidosis 5. Partial small bowel obstruction 6. Confusion/AMS no labs available to review today Clinically unchanged, continue Albumin + Lasix for now Continue D5W with KCl overall prognosis is guarded DNR/DNI palliative care follow up Thank you Yoel Torres DO
[2019-04-11] MEDS: SULFACETAMIDE SODIUM 10% OPHTHALMIC DROPS 15 ML BOTTLE OU SCH ×4 (16:26→22:11)
[2019-04-11] MEDS: KETOCONAZOLE 2% CREAM - 60GM TUBE TP SCH (16:27)
[2019-04-11] MEDS: ALBUMIN HUMAN 25% 100 ML VIAL IVPB SCH (18:23)
[2019-04-11] MEDS: diphenhydrAMINE HCL 25 MG CAPSULE (FP) PO SCH (22:11)
[2019-04-12] MEDS ORDERED: MORPHINE SULFATE 2 MG/ML VIAL IVPUSH ONE (03:05)
[2019-04-12] MEDS ORDERED: FUROSEMIDE 40 MG/4 ML INJECTABLE VIAL IVPUSH ONE (03:06)
[2019-04-12] MEDS ORDERED: ALBUTEROL SO4 0.083% IH SOL 2.5 MG/3 ML VIAL.NEB. NEB STA (03:07)
--- NOTE | 2019-04-12 03:21 | PN ---
Progress Note (short form) - Note Progress Note: Episodic Note 04/12/2019@3am Called by nurse patient is congested with shortness of breath and hypotensive. Chart Reviewed. Patient was seen and examined at bedside . Patient is DNR/DNI status and goal is comfort. On exam patient is dyspneic, has audible congestion with rales, using accessory muscles and SBP in the upper 80's. Assessment: Patient has fluid overload on exam . Limited in giving higher dosages of IV morphine and IV lasix due to hypotension. Plan: IV fluids discontinued Morphine 1mg IV ordered IV lasix 20mg once ordered Albuterol nebulizer treatment ordered Visit type - Emergency Visit Emergency Visit: Yes ED Registration Date: 04/01/19 Care time: The patient presented to the Emergency Department on the above date and was hospitalized for further evaluation of their emergent condition. - New Patient This patient is new to me today: Yes Date on this admission: 04/12/19 - Critical Care Critical Care patient: No
[2019-04-12] MEDS ORDERED: PT OWN MED DRAWER 7, Y5N ONE ×2 (05:51→06:28)
[2019-04-12 06:08] VITALS: TEMP 97
[2019-04-12] MEDS: ALBUMIN HUMAN 25% 100 ML VIAL IVPB SCH (06:23)
[2019-04-12] MEDS: FUROSEMIDE 40 MG/4 ML INJECTABLE VIAL IVPUSH SCH (06:59)
--- NOTE | 2019-04-12 07:28 | PN ---
Progress Note, Physician History of Present Illness: Patient seen and examined at the bedside. still lethargic today, arousable to touch. family at bedside. per daughter in law, family discussing possible palliative options. labs ordered but patient with edema and labs difficult to draw today, family refused further attempts to draw labs today. will defer labs for tomorrow as the goal is comfort. family asking for a magneto electrician/breezy visit. OBJECTIVE: or lasix and albumin for volume overload ------- Patient is an 88 year old female with a significant past medical history of previous SBO s/p hemicolectomy, diverticulitis, HTN, HLD, afib (on eliquis), CVA, presents to the ED with abdominal pain. NGT tube placed on admission for SBO, now removed and started on liquid diet, but with very poor PO intake. Hospitalization further complicated when patient progressively became confused and poorly responsive. She then developed congestive heart failure, abnormal liver function tests, elevated uric acid levels and significant elevated BNP. She remains poorly responsive and volume overloaded and is currently on albumin and lasix. - Current Medication List Current Medications: Active Medications Acetaminophen (Tylenol -) 650 mg PO Q6H PRN PRN Reason: FEVER Apixaban (Eliquis -) 5 mg PO BID [facility] Last Admin: 04/11/19 22:11 Dose: Not Given Aspirin (Asa -) 81 mg PO DAILY [facility] Last Admin: 04/11/19 11:23 Dose: Not Given Atorvastatin Calcium (Lipitor -) 40 mg PO DAILY [facility] Last Admin: 04/11/19 11:24 Dose: Not Given Diphenhydramine HCl (Benadryl -) 50 mg PO HS [facility] Last Admin: 04/11/19 22:11 Dose: Not Given Furosemide (Lasix Injection -) 20 mg IVPUSH BID@0600,1400 [facility] Last Admin: 04/12/19 06:59 Dose: 20 mg Ketoconazole (Nizoral 2% Cream -) 1 applic TP DAILY [facility] Last Admin: 04/11/19 16:27 Dose: 1 applic Metoclopramide HCl (Reglan Injection -) 10 mg IVPUSH Q6H PRN PRN Reason: NAUSEA AND/OR VOMITING Last Admin: 04/04/19 03:46 Dose: 10 mg Metoprolol Succinate (Toprol Xl -) 100 mg PO BID [facility] Last Admin: 04/11/19 22:12 Dose: Not Given Sulfacetamide Sodium (Bleph-10 Ophthalmic Solution -) 2 drop OU QID [facility] Last Admin: 04/11/19 22:11 Dose: 2 drop - Objective Vital Signs: Vital Signs Temperature 97.0 F L 04/12/19 06:00 Pulse Rate 94 H 04/12/19 06:00 Respiratory Rate 18 04/12/19 06:00 Blood Pressure 96/50 L 04/12/19 06:00 O2 Sat by Pulse Oximetry (%) 99 04/11/19 21:00 Neck: Yes: Other (soft non mobile mass below patient right ear, likely infected salivary gland, smaller today and less painful) Gastrointestinal: Yes: Abdomen, Obese ...Rectal Exam: Yes: Deferred Labs: CBC, BMP 04/09/19 06:00 04/09/19 06:00 INR, PTT INR 1.77 (0.83-1.09) H 04/09/19 06:00 Problem List - Problems (1) Abnormal AST and ALT Code(s): R74.8 - ABNORMAL LEVELS OF OTHER SERUM ENZYMES (2) CAD (coronary artery disease) Code(s): I25.10 - ATHSCL HEART DISEASE OF [place] CORONARY ARTERY W/O ANG PCTRS (3) Chronic diastolic (congestive) heart failure Code(s): I50.32 - CHRONIC DIASTOLIC (CONGESTIVE) HEART FAILURE (4) DNI (do not intubate) Code(s): Z78.9 - OTHER SPECIFIED HEALTH STATUS (5) DNR no code (do not resuscitate) Code(s): Z66 - DO NOT RESUSCITATE (6) Hx pulmonary embolism Code(s): Z86.711 - PERSONAL HISTORY OF PULMONARY EMBOLISM (7) Hypertension Code(s): I10 - ESSENTIAL (PRIMARY) HYPERTENSION (8) Prophylactic measure Code(s): Z29.9 - ENCOUNTER FOR PROPHYLACTIC MEASURES, UNSPECIFIED (9) SBO (small bowel obstruction) Code(s): K56.609 - UNSP INTESTNL OBST, UNSP TO PARTIAL VERSUS COMPLETE OBST (10) Severe sepsis Code(s): A41.9 - SEPSIS, UNSPECIFIED ORGANISM; R65.20 - SEVERE SEPSIS WITHOUT SEPTIC SHOCK (11) Toxic metabolic encephalopathy Code(s): G92 - TOXIC ENCEPHALOPATHY (12) JAROD (acute kidney injury) Code(s): N17.9 - ACUTE KIDNEY FAILURE, UNSPECIFIED (13) Atrial fibrillation Code(s): I48.91 - UNSPECIFIED ATRIAL FIBRILLATION (14) CVA (cerebral vascular accident) Code(s): I63.9 - CEREBRAL INFARCTION, UNSPECIFIED
[2019-04-12 08:37] VITALS: BP 95/48; PULSE 96
[2019-04-12] MEDS: ATORVASTATIN CA 10 MG TABLET (FP) PO SCH (09:51)
[2019-04-12] MEDS: ASPIRIN 81 MG CHEWABLE TABLETS PO SCH (09:51)
[2019-04-12] MEDS: APIXABAN 5 MG TABLET PO SCH (09:51)
[2019-04-12] MEDS: SULFACETAMIDE SODIUM 10% OPHTHALMIC DROPS 15 ML BOTTLE OU SCH (09:52)
--- NOTE | 2019-04-12 14:12 | DS ---
Physical Exam: SUBJECTIVE: Patient at 0945. Family at bedside. certificate done. OBJECTIVE: Pt without respirations and asystolic. HOSPITAL COURSE: Date of Admission:04/01/19 Date of Discharge: 04/12/19 Problem List - Problems (1) Abnormal AST and ALT Code(s): R74.8 - ABNORMAL LEVELS OF OTHER SERUM ENZYMES (2) CAD (coronary artery disease) Code(s): I25.10 - ATHSCL HEART DISEASE OF [place] CORONARY ARTERY W/O ANG PCTRS (3) Chronic diastolic (congestive) heart failure Code(s): I50.32 - CHRONIC DIASTOLIC (CONGESTIVE) HEART FAILURE (4) DNI (do not intubate) Code(s): Z78.9 - OTHER SPECIFIED HEALTH STATUS (5) DNR no code (do not resuscitate) Code(s): Z66 - DO NOT RESUSCITATE (6) Hx pulmonary embolism Code(s): Z86.711 - PERSONAL HISTORY OF PULMONARY EMBOLISM (7) Hypertension Code(s): I10 - ESSENTIAL (PRIMARY) HYPERTENSION (8) Prophylactic measure Code(s): Z29.9 - ENCOUNTER FOR PROPHYLACTIC MEASURES, UNSPECIFIED (9) SBO (small bowel obstruction) Code(s): K56.609 - UNSP INTESTNL OBST, UNSP TO PARTIAL VERSUS COMPLETE OBST (10) Severe sepsis Code(s): A41.9 - SEPSIS, UNSPECIFIED ORGANISM; R65.20 - SEVERE SEPSIS WITHOUT SEPTIC SHOCK (11) Toxic metabolic encephalopathy Code(s): G92 - TOXIC ENCEPHALOPATHY (12) JAROD (acute kidney injury) Code(s): N17.9 - ACUTE KIDNEY FAILURE, UNSPECIFIED (13) Atrial fibrillation Code(s): I48.91 - UNSPECIFIED ATRIAL FIBRILLATION (14) CVA (cerebral vascular accident) Code(s): I63.9 - CEREBRAL INFARCTION, UNSPECIFIED Minutes to complete discharge: 55 Discharge Summary Problems reviewed: Yes Reason For Visit: SMALL BOWEL OBSTRUCTION Hospital Course: Problem List - Problems (1) Abnormal AST and ALT Code(s): R74.8 - ABNORMAL LEVELS OF OTHER SERUM ENZYMES (2) CAD (coronary artery disease) Code(s): I25.10 - ATHSCL HEART DISEASE OF [place] CORONARY ARTERY W/O ANG PCTRS (3) Chronic diastolic (congestive) heart failure Code(s): I50.32 - CHRONIC DIASTOLIC (CONGESTIVE) HEART FAILURE (4) DNI (do not intubate) Code(s): Z78.9 - OTHER SPECIFIED HEALTH STATUS (5) DNR no code (do not resuscitate) Code(s): Z66 - DO NOT RESUSCITATE (6) Hx pulmonary embolism Code(s): Z86.711 - PERSONAL HISTORY OF PULMONARY EMBOLISM (7) Hypertension Code(s): I10 - ESSENTIAL (PRIMARY) HYPERTENSION (8) Prophylactic measure Code(s): Z29.9 - ENCOUNTER FOR PROPHYLACTIC MEASURES, UNSPECIFIED (9) SBO (small bowel obstruction) Code(s): K56.609 - UNSP INTESTNL OBST, UNSP TO PARTIAL VERSUS COMPLETE OBST (10) Severe sepsis Code(s): A41.9 - SEPSIS, UNSPECIFIED ORGANISM; R65.20 - SEVERE SEPSIS WITHOUT SEPTIC SHOCK (11) Toxic metabolic encephalopathy Code(s): G92 - TOXIC ENCEPHALOPATHY (12) JAROD (acute kidney injury) Code(s): N17.9 - ACUTE KIDNEY FAILURE, UNSPECIFIED (13) Atrial fibrillation Code(s): I48.91 - UNSPECIFIED ATRIAL FIBRILLATION (14) CVA (cerebral vascular accident) Code(s): I63.9 - CEREBRAL INFARCTION, UNSPECIFIED Condition: - Instructions Referrals: ON STAFF,NOT [Primary Care Provider] - Disposition: - Home Medications Comprehensive Discharge Medication List: Ambulatory Orders Aspirin 81 mg PO DAILY 09/06/17 Furosemide [Lasix -] 40 mg PO BID 09/06/17 Metoprolol Succinate [Toprol XL -] 100 mg PO BID 09/06/17 Potassium Chloride [K-Dur -] 20 meq PO DAILY 09/06/17 Pravastatin Sodium [Pravachol] 40 mg PO DAILY 09/06/17 Apixaban [Eliquis] 5 mg PO BID 09/07/17 Ergocalciferol [Vitamin D2] 50,000 unit PO Q7D@1000 10/27/18 Cyanocobalamin [Vitamin B12 -] 1,000 mcg PO DAILY #30 tablet 11/11/18 Docusate Sodium [Colace] 100 mg PO BID #60 capsule 11/11/18 Ferrous Sulfate [Feosol] 325 mg PO BID #60 ud 11/11/18 Albuterol 2.5/Ipratropium 0.5 [Duoneb -] 1 neb NEB QID PRN 04/01/19 Allopurinol [Zyloprim -] 100 mg PO WEEKLY 04/01/19 Colchicine 0.6 mg PO Q2D 04/01/19 Nystatin [Nyamyc] 100,000 unit TP BID 04/01/19 Sulfacetamide Sodium 10% [Bleph-10 Ophthalmic Solution -] 1 drop OU QID Prescription Drug Monitoring Program (I-STOP) results: I-STOP not reviewed Problem List - Problems (1) Abnormal AST and ALT Code(s): R74.8 - ABNORMAL LEVELS OF OTHER SERUM ENZYMES (2) CAD (coronary artery disease) Code(s): I25.10 - ATHSCL HEART DISEASE OF [place] CORONARY ARTERY W/O ANG PCTRS (3) Chronic diastolic (congestive) heart failure Code(s): I50.32 - CHRONIC DIASTOLIC (CONGESTIVE) HEART FAILURE (4) DNI (do not intubate) Code(s): Z78.9 - OTHER SPECIFIED HEALTH STATUS (5) DNR no code (do not resuscitate) Code(s): Z66 - DO NOT RESUSCITATE (6) Hx pulmonary embolism Code(s): Z86.711 - PERSONAL HISTORY OF PULMONARY EMBOLISM (7) Hypertension Code(s): I10 - ESSENTIAL (PRIMARY) HYPERTENSION (8) Prophylactic measure Code(s): Z29.9 - ENCOUNTER FOR PROPHYLACTIC MEASURES, UNSPECIFIED (9) SBO (small bowel obstruction) Code(s): K56.609 - UNSP INTESTNL OBST, UNSP TO PARTIAL VERSUS COMPLETE OBST (10) Severe sepsis Code(s): A41.9 - SEPSIS, UNSPECIFIED ORGANISM; R65.20 - SEVERE SEPSIS WITHOUT SEPTIC SHOCK (11) Toxic metabolic encephalopathy Code(s): G92 - TOXIC ENCEPHALOPATHY (12) JAROD (acute kidney injury) Code(s): N17.9 - ACUTE KIDNEY FAILURE, UNSPECIFIED (13) Atrial fibrillation Code(s): I48.91 - UNSPECIFIED ATRIAL FIBRILLATION (14) CVA (cerebral vascular accident) Code(s): I63.9 - CEREBRAL INFARCTION, UNSPECIFIED This patient is new to me today: Yes Date on this admission: 04/12/19 Emergency Visit: Yes ED Registration Date: 04/01/19 Care time: The patient presented to the Emergency Department on the above date and was hospitalized for further evaluation of their emergent condition. Critical Care patient: No - Discharge Referral Referred to [facility] Med P.C.: No
[2019-04-12] MEDS ORDERED: FUROSEMIDE 40 MG/4 ML INJECTABLE VIAL IVPUSH SCH (18:45)
== END 2019-04-12 13:00 | disposition expired | DRG 871 ==
LOC: JER 22:44 → JERBED 04-01 05:15 → J4S 04-03 22:04
PROVIDERS: ADMIT Internal Medicine; ATTEND Nurse Practitioner Acute Care
DX: A41.9 Sepsis, unspecified organism (principal); G93.41 Metabolic encephalopathy; I50.33 Acute on chronic diastolic (congestive) heart failure; N39.0 Urinary tract infection, site not specified; N17.9 Acute kidney failure, unspecified; I48.21 Permanent atrial fibrillation; K56.600 Partial intestinal obstruction, unspecified as to cause; E87.2 Acidosis; R47.01 Aphasia; I27.82 Chronic pulmonary embolism; E87.0 Hyperosmolality and hypernatremia; N13.30 Unspecified hydronephrosis; I13.0 Hypertensive heart and chronic kidney disease with heart failure and stage 1 through stage 4 chronic kidney disease, or unspecified chronic kidney disease; N18.3 Chronic kidney disease, stage 3 (moderate); E87.6 Hypokalemia; E83.42 Hypomagnesemia; I25.10 Atherosclerotic heart disease of native coronary artery without angina pectoris; R47.1 Dysarthria and anarthria; R65.20 Severe sepsis without septic shock; B96.1 Klebsiella pneumoniae [K. pneumoniae] as the cause of diseases classified elsewhere; E66.9 Obesity, unspecified; Z68.35 Body mass index [BMI] 35.0-35.9, adult; D72.829 Elevated white blood cell count, unspecified; Z98.61 Coronary angioplasty status
CPT/HCPCS: 36415; 70450-TC; 71045-TC-FY; 73630-TC-LT; 73630-TC-RT-FY; 74018-TC-FY; 74019-TC-FY; 74176-TC; 76705-TC; 80048; 80053; 81003; 82550; 82962; 83605; 83690; 83735; 83880; 84100; 84132; 84484; 84550; 85025; 85027; 85610; 85730; 86850; 86900; 86901; 87040; 87070; 87086; 87186; 87205; 93005; 93010; 99285-25; J0131; J7030; P9047